=== PATIENT | male | born 1965 | race Two or more races ===

== ENCOUNTER 2020-02-24 08:51 | Outpatient (REF) | payer OTHER, SELFPAY ==
--- NOTE | 2020-02-24 10:41 | XR_ITS ---
EXAMINATION: XR CHEST CLINICAL INFORMATION: Asthma exacerbation COMPARISON: Previous chest x-ray most recent June 2019 TECHNIQUE: 2 views of the chest were obtained. FINDINGS: The cardiac and mediastinal contours are stable. The lungs are clear. There is no pleural effusion or pneumothorax. There are degenerative changes of the spine. XR/XR chest 2V IMPRESSION: No evidence for acute disease in the chest.
[2020-02-24 11:27] LABS: MANUAL DIFF FLAG NO
[2020-02-24 11:52] LABS: Basophils Absolute Auto 0.1 X10*3/uL (0.0-0.2); Basophils Percent Auto 0.8 % (0-2); Eosinophils Absolute Auto 0.2 X10*3/uL (0.0-0.4); Eosinophils Percent Auto 2.1 % (0-4); Hematocrit 49.8 % (42-52); Imm Gran Abs Auto 0.06 X10*3/uL (0.00-0.03); Imm Gran Pct Auto 0.8 % (0.0-0.4); Lymphocytes Absolute Auto 1.4 X10*3/uL (1.2-4.9); Lymphocytes Percent Auto 18.6 % (20-40); Mean Corpuscular HGB Conc 32.1 g/dl (31.0-36.0); Mean Corpuscular Hemoglobin 29.4 pg (27.0-33.0); Mean Corpuscular Volume 91.5 fL (80-98); Mean Platelet Volume 11.2 fL (9.4-12.4); Monocytes Absolute Auto 0.6 X10*3/uL (0.1-1.2); Monocytes Percent Auto 7.1 % (2-11); Neutrophils Absolute Auto 5.5 X10*3/uL (2.0-8.3); Neutrophils Percent Auto 70.6 % (45-73); Platelet Count 258 X10*3/uL (160-400); Red Blood Count 5.44 X10*6/uL (4.60-5.80); Red Cell Distribution Width 12.6 % (11.0-16.0); White Blood Count 7.8 X10*3/uL (4.8-10.8)
[2020-02-24 12:01] LABS: Anion Gap 14 (12-20); Blood Urea Nitrogen 12 mg/dL (9-16); Calcium 9.4 mg/dL (8.4-10.2); Carbon Dioxide 27 mmol/L (22-29); Chloride 104 mmol/L (96-108); Cholesterol 212 mg/dL; Estimated Glomerular Filt Rate > 60; Glucose Fasting 169 mg/dL (60-99); HDL Cholesterol 38 mg/dL; LDL Cholesterol Calculated 145 mg/dl; Potassium 4.8 mmol/l (3.3-5.1); Sodium 140 mmol/L (135-145); Triglycerides 145 mg/dL
[2020-02-24 12:08] LABS: SARS COV2 IgG Negative (Negative)
[2020-02-24 12:56] LABS: Erythrocyte Sedimentation Rate 5 MM/HR (0-15)
[2020-02-27 11:17] LABS: Immunoglobulin G Subclass 1 416 mg/dL (382-929); Immunoglobulin G Subclass 2 344 mg/dL (241-700); Immunoglobulin G Subclass 3 70 mg/dL (22-178); Immunoglobulin G Subclass 4 4.5 mg/dL (4-86); Immunoglobulin G Total 888 mg/dL (600-1640)
[2020-02-28 11:53] LABS: IgA 239 mg/dL (47-310); IgG 929 mg/dL (600-1640); IgM 171 mg/dL (50-300)
== END 2020-02-24 08:52 | disposition home or self-care (01) ==
LOC: HO.LAB 08:51
PROVIDERS: Absent Provider Nurse Practitioner Family; PCP Internal Medicine; Referring Provider Internal Medicine; Visit Provider Hospitalist
DX: J45.901 Unspecified asthma with (acute) exacerbation (principal); G47.33 Obstructive sleep apnea (adult) (pediatric)
CPT/HCPCS: 36415; 71046; 80048; 80061; 82784; 82785; 85025; 85652; 86003; 86769; 87070; 87205; 99212

== ENCOUNTER → 2020-03-23 10:15 | Outpatient (REF) | payer OTHER, SELFPAY | LOC: HO.SL 10:15 | PROVIDERS: Visit Provider Hospitalist | DX: G47.33 Obstructive sleep apnea (adult) (pediatric) (principal) | CPT/HCPCS: 95806 ==

== ENCOUNTER → 2020-03-26 09:40 | Outpatient (BNVA) | payer OTHER, SELFPAY | PROVIDERS: PCP Internal Medicine; Visit Provider Internal Medicine | DX: I45.10 Unspecified right bundle-branch block (principal); R00.2 Palpitations; G47.33 Obstructive sleep apnea (adult) (pediatric); E66.01 Morbid (severe) obesity due to excess calories; E11.8 Type 2 diabetes mellitus with unspecified complications; I10 Essential (primary) hypertension; E78.5 Hyperlipidemia, unspecified | CPT/HCPCS: 93005; 99212 ==

== ENCOUNTER → 2020-04-09 13:47 | Outpatient (BNVA) | payer OTHER, SELFPAY | PROVIDERS: PCP Internal Medicine; Visit Provider Hospitalist | DX: G47.33 Obstructive sleep apnea (adult) (pediatric) (principal); J45.901 Unspecified asthma with (acute) exacerbation; J45.991 Cough variant asthma | CPT/HCPCS: 99212 ==

== ENCOUNTER → 2020-04-21 09:25 | Outpatient (REF) | payer OTHER, SELFPAY ==
--- NOTE | 2020-04-21 09:27 | ECG_ITS ---
Hook-up date: 2020-04-21 10:43:00 Duration: 47:48:00 Test Indications: RBBB, PALPITATIONS Medications: [id number] QRS complexes 459 Ventricular ectopics which represent <1 % of total QRS comp. 13 Supraventricular ectopics which represent <1 % of total QRS comp. * Paced QRS complexs which represent % of total QRS comp. VENTRICULAR ECTOPY 440 Isolated 0 Bigeminal Cycles 0 Couplets 1 Runs 19 Beats in Runs 19 Beats LONGEST at 110 BPM at 05:32:16 2020-04-22 19 Beats FASTEST at 110 BPM at 05:32:16 2020-04-22 SUPRAVENTRICULAR ECTOPY 13 Isolated 0 Couplets 0 Runs 0 Beats in Runs * Beats LONGEST at * BPM at :: -- * Beats FASTEST at * BPM at :: -- HEART RATES 63 MIN at 05:01:58 2020-04-22 86 AVG 107 MAX at 13:43:56 2020-04-21 LONGEST RR 1.5360 secs at 09:24:35 2020-04-22 S-T LEVELS Channel 1 - 128 mm at 10:43:00 2020-04-21 - 128 mm at 10:43:00 2020-04-21 Channel 2 - 128 mm at 10:43:00 2020-04-21 - 128 mm at 10:43:00 2020-04-21 Channel 3 - 128 mm at 03:00:21 -- - 128 mm at 03:00:21 Underlying rhythm in sinus; Average ventricular rate 86/min; range 63-107/min; Occasional ventricular ectopy (<1%); One 19 beat run of monomorphic NSVT at 110/min; No sustained arrhythmias; Patient did not report any symptoms in the diary Referred By: Kandy Gimenez Overread By: KANDY GIMENEZ
--- NOTE | 2020-04-21 09:27 | CA_ITS ---
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 Normal LV systolic function with grade 1 diastolic dysfunction 2. Normal cardiac valvular Doppler 3. Normal RV systolic pressure 4. No pericardial effusion Findings Left Ventricle Normal left ventricular size, thickness, and systolic function. The visually estimated ejection fraction is between 60-65%. Spectral Doppler is indicative of an impaired relaxation filling pattern. E/E prime ratio is <8, consistent with normal filling pressures. Evidence suggests grade I (mild) diastolic dysfunction. Right Ventricle Normal right ventricular cavity size and systolic function. Atria Both atria are normal in size. Interatrial shunt cannot be excluded. Aortic Valve The aortic valve structure and function is likely normal. There is no aortic valve stenosis. There is no aortic valve regurgitation. Mitral Valve Normal mitral valve structure and function. There is no mitral valve regurgitation. There is no mitral valve stenosis. Pulmonic Valve The pulmonic valve is likely normal. There is trace pulmonic valve regurgitation. Tricuspid Valve Normal tricuspid valve structure. There is trace tricuspid valve regurgitation. The right ventricular systolic pressure is normal. The right ventricular systolic pressure is 13 mmHg. Normal right atrial pressure. There is no evidence of pulmonary hypertension. Great Vessels All visible segments of the aorta are normal in size. The pulmonary artery was not well visualized. Venous The inferior vena cava is normal in size and collapses greater than 50% with inspiration. Pericardium/Pleural There is no evidence of pericardial effusion. Prior Study Comparison No significant change compared to prior study dated: 04/10/2018. Measurements 2D Linear Measurements IVSd: 1.20 0.6-0.9/0.6-1.0 cm LVIDd: 4.70 3.9-5.3/4.2-5.9 cm LVIDd Index: 2.13 2.4-3.2/2.2-3.1 cm/m2 LVIDs: 3.29 2.0-3.6 cm LVPWd: 1.21 0.7-1.1 cm Ao Root: 3.40 2.1-3.5 cm LA Diam: 3.50 2.7-3.8/3.0-4.0 cm LAIDs Index: 1.58 1.5-2.3 cm/m2 LV Mass: 265.83 67-162/88-224 g LV Mass Index: 120.28 43-95/49-115 g/m2 LVOT Diam: 2.20 3.0+(-)1.3 cm Mitral Valve MV Pk E: 0.62 MV PK A: 1.00 MV Decel Time: 155.00 E/A: 0.60 E'Lateral: 8.90 E'Medial: 6.87 E/E' Med: 9.00 E/E' Lat: 7.00 PHT: 45.00 MVA PHT: 4.89 Decel Hidalgo: 4.01 Aortic Valve AoV Pk Robinson: 1.33 AoV Mn Robinson: 0.96 AoV VTI: 0.31 AoV Pk Grad: 7.00 Aov Mn Grad: 4.00 KANDACE Cont.VTI: 2.50 LVOT LVOT Pk Robinson: 0.96 LVOT Mn Robinson: 0.67 LVOT VTI: 0.20 LVOT Pk Grad: 4.00 LVOT Mn Grad: 2.00 LVOT Diam: 2.20 LVOT Area: 3.80 Diastolic Function MV Pk E: 0.62 MV Pk A: 1.00 E/A: 0.60 E'Medial: 6.87 E/E' Med: 9.00 E' Laterial: 8.90 E/E' Lat: 7.00 Tricuspid Valve TR Pk Robinson: 1.56 TR Pk Grad: 10.00 RA Press: 3.00 RVSP: 13.00 Great Vessels Aorta Ao Root-2D: 3.40 2.0-3.7 cm Ao Asc: 3.70 2.1-3.4 cm Pulmonary Valve PV Pk Robinson: 1.07 Peak PV Grad: 5.00 Updated in Other Vendor System with Status of Final Dustin Gardner MD electronically signed on 04/22/2020 1:27:01 PM with status of Final
== END ==
LOC: HO.CARD 09:25
PROVIDERS: Visit Provider Internal Medicine
DX: I45.10 Unspecified right bundle-branch block (principal); R00.2 Palpitations
CPT/HCPCS: 93225; 93226; 93306

== ENCOUNTER → 2020-04-29 09:32 | Outpatient (BNVA) | payer OTHER, SELFPAY | PROVIDERS: PCP Internal Medicine; Visit Provider Nurse Practitioner Family | DX: I47.2 Ventricular tachycardia (principal); R00.2 Palpitations; I45.10 Unspecified right bundle-branch block; G47.33 Obstructive sleep apnea (adult) (pediatric); I10 Essential (primary) hypertension; E78.5 Hyperlipidemia, unspecified | CPT/HCPCS: 99212 ==

== ENCOUNTER → 2020-05-11 10:12 | Outpatient (BNVA) | payer OTHER, SELFPAY | PROVIDERS: PCP Internal Medicine; Visit Provider Nurse Practitioner Family | DX: I47.2 Ventricular tachycardia (principal); I10 Essential (primary) hypertension; I45.10 Unspecified right bundle-branch block; R00.2 Palpitations; G47.33 Obstructive sleep apnea (adult) (pediatric); E78.5 Hyperlipidemia, unspecified | CPT/HCPCS: 99212 ==

== ENCOUNTER → 2020-07-16 09:37 | Outpatient (BNVA) | payer OTHER, SELFPAY | PROVIDERS: PCP Internal Medicine; Visit Provider Hospitalist | DX: K44.9 Diaphragmatic hernia without obstruction or gangrene (principal); J45.991 Cough variant asthma; J31.0 Chronic rhinitis | CPT/HCPCS: 99212 ==

== ENCOUNTER → 2020-07-27 09:38 | Outpatient (BNVA) | payer OTHER, SELFPAY | PROVIDERS: PCP Internal Medicine; Referring Provider Internal Medicine; Visit Provider Nurse Practitioner Family | DX: I10 Essential (primary) hypertension (principal); R00.2 Palpitations; I47.2 Ventricular tachycardia; I45.10 Unspecified right bundle-branch block; E78.5 Hyperlipidemia, unspecified; G47.33 Obstructive sleep apnea (adult) (pediatric); Z79.899 Other long term (current) drug therapy | CPT/HCPCS: 99212 ==

== ENCOUNTER 2020-07-27 10:48 | Outpatient (REF) | payer OTHER, SELFPAY ==
[2020-07-27 14:38] LABS: Alanine Aminotransferase 32 U/L (0-40); Aspartate Amino Transferase 20 U/L (5-37); Cholesterol 224 mg/dL; HDL Cholesterol 35 mg/dL; LDL Cholesterol Calculated 155 mg/dl; Triglycerides 174 mg/dL
[2020-07-27 14:39] LABS: Anion Gap 15 (12-20); Blood Urea Nitrogen 16 mg/dL (9-16); Calcium 9.4 mg/dL (8.4-10.2); Carbon Dioxide 25 mmol/L (22-29); Chloride 103 mmol/L (96-108); Estimated Glomerular Filt Rate > 60; Glucose Random 197 mg/dL (60-115); Potassium 4.7 mmol/L (3.3-5.1); Sodium 138 mmol/L (135-145)
== END 2020-07-27 10:49 | disposition home or self-care (01) ==
LOC: HO.10HDL 10:48
PROVIDERS: Visit Provider Nurse Practitioner Family
DX: E78.5 Hyperlipidemia, unspecified (principal); I47.2 Ventricular tachycardia
CPT/HCPCS: 36415; 80048; 80061; 83735; 84450; 84460

== ENCOUNTER 2020-08-21 14:53 | Outpatient (REF) | payer OTHER, SELFPAY ==
--- NOTE | ~2020-08-21 | XR_ITS ---
EXAMINATION: LUMBAR SPINE AND SACROILIAC JOINT X-RAYS CLINICAL INFORMATION: Radiculopathy COMPARISON: Previous CT of the abdomen and pelvis November 2013 TECHNIQUE: 3 views of the lumbar spine and 3 views of the sacroiliac joints FINDINGS: Lumbar spine: There is mild 5 mm retrolisthesis of L5 with respect to L4. Bone alignment is otherwise normal. No fracture or dislocation is seen. There is severe degenerative disc disease at L4-L5 and facet arthritis. Paraspinal soft tissues are unremarkable. Sacroiliac joints: The sacroiliac joints are normal. No fracture, dislocation or bone lesion is seen. XR/XR sacroiliac joint min 3V IMPRESSION: Lumbar spine: Severe degenerative disc disease and facet arthritis at L4-L5. Mild retrolisthesis of L5 with respect to L4. These changes are similar to CT scan of the abdomen and pelvis November 2013. Sacroiliac joints: Unremarkable exam.
--- NOTE | ~2020-08-21 | XR_ITS ---
EXAMINATION: LUMBAR SPINE AND SACROILIAC JOINT X-RAYS CLINICAL INFORMATION: Radiculopathy COMPARISON: Previous CT of the abdomen and pelvis November 2013 TECHNIQUE: 3 views of the lumbar spine and 3 views of the sacroiliac joints FINDINGS: Lumbar spine: There is mild 5 mm retrolisthesis of L5 with respect to L4. Bone alignment is otherwise normal. No fracture or dislocation is seen. There is severe degenerative disc disease at L4-L5 and facet arthritis. Paraspinal soft tissues are unremarkable. Sacroiliac joints: The sacroiliac joints are normal. No fracture, dislocation or bone lesion is seen. XR/XR lumbar spine 2-3V IMPRESSION: Lumbar spine: Severe degenerative disc disease and facet arthritis at L4-L5. Mild retrolisthesis of L5 with respect to L4. These changes are similar to CT scan of the abdomen and pelvis November 2013. Sacroiliac joints: Unremarkable exam.
== END 2020-08-21 14:54 | disposition home or self-care (01) ==
LOC: HO.XRAY 14:53
PROVIDERS: PCP Internal Medicine; Visit Provider Internal Medicine
DX: M54.5 Low back pain (principal); M54.10 Radiculopathy, site unspecified; M53.3 Sacrococcygeal disorders, not elsewhere classified
CPT/HCPCS: 72100; 72202

== ENCOUNTER 2020-09-07 10:20 | Outpatient (REF) | payer OTHER, SELFPAY ==
--- NOTE | ~2020-09-07 | US_ITS ---
EXAMINATION: RIGHT and LEFT LOWER EXTREMITY VENOUS ULTRASOUND (Reflux Exam) CLINICAL INDICATION: Leg pain. Question history of right leg pain procedure area COMPARISON: None. TECHNIQUE: Color flow triplex imaging and compression Doppler was performed to evaluate both the deep and the superficial systems bilaterally. To evaluate the superficial system, the examination was performed in the upright position. Color-flow Doppler ultrasound and compression ultrasound were utilized. In addition, maneuvers were utilized to demonstrate reflux. FINDINGS: 1. DEEP VENOUS ULTRASOUND OF THE RIGHT LOWER EXTREMITY: Respiratory variation, normal compression and augmented flow are noted in the right common femoral vein as well as the right popliteal vein and there is no evidence of deep venous thrombosis at these locations. There is no evidence of reflux in the deep system in either the common femoral vein or the popliteal vein. There is no evidence of a Zacarias's cyst. 2. SUPERFICIAL ULTRASOUND WITH DOPPLER OF RIGHT LOWER EXTREMITY: The right great saphenous vein at the saphenofemoral junction measures 6 mm, at the mid thigh are not seen, jweaf-mrl-bytd 3 mm, rfqjz-xbu-zwtq 3 mm, at mid calf 2 mm and at the ankle measures 2 mm. There is 2 seconds reflux in the right greater saphenous vein in the mid calf. There is a medial accessory greater saphenous vein that measures 4 mm and does not demonstrate reflux. The right small saphenous vein measures 2 mm and shows no reflux. There is varicose vein above the knee that measures 4 mm and demonstrates 2.8 seconds reflux and in the mid calf that measures 3 mm and demonstrates 2.7 second reflux. 3. DEEP VENOUS ULTRASOUND OF THE LEFT LOWER EXTREMITY: Respiratory variation, normal compression and augmented flow are noted in the left common femoral vein as well as the left popliteal vein and there is no evidence of deep venous thrombosis at these locations. There is no evidence of reflux in the deep system in either the common femoral vein or the popliteal vein. . There is no evidence of a Zacarias's cyst. 4. SUPERFICIAL ULTRASOUND WITH DOPPLER OF LEFT LOWER EXTREMITY: Left great saphenous vein at the saphenofemoral junction measures 10 mm, at the mid thigh 1 mm, dhopb-wnp-ttth 3 mm, rebiw-bcw-qrkn 3 mm, at mid calf 2 mm and at the ankle measures 2 mm. There is no reflux demonstrated in the left great saphenous vein. There is a medial accessory greater saphenous vein that measures 5 mm and does not demonstrate reflux. The left small saphenous vein measures 3-4 mm and shows no reflux. There are small perforators that measure 2 mm in the proximal thigh, distal calf and midcalf that do not demonstrate reflux. There is a varicosity in the proximal thigh that measures 3 mm and does not demonstrate reflux. US/US venous duplex LE BI IMPRESSION: 1. No evidence of reflux or thrombus in the common femoral veins or popliteal veins bilaterally. 2. The right greater saphenous vein is not visualized in the mid thigh. There is reflux in the right greater saphenous vein in the mid calf measuring 2 seconds. There are varicosities above the knee and in the mid calf on the right than demonstrate reflux. No left greater saphenous vein reflux.
== END 2020-09-07 10:21 | disposition home or self-care (01) ==
LOC: HO.US 10:20
PROVIDERS: PCP Internal Medicine; Visit Provider Nurse Practitioner Family
DX: I83.90 Asymptomatic varicose veins of unspecified lower extremity (principal); M79.605 Pain in left leg; M79.604 Pain in right leg
CPT/HCPCS: 93970

== ENCOUNTER 2020-09-18 17:35 | Emergency (ER) | payer OTHER, SELFPAY ==
--- NOTE | ~2020-09-18 | XR_ITS ---
EXAMINATION: XR CHEST CLINICAL INFORMATION: Shortness of breath COMPARISON: 02/24/2020 TECHNIQUE: 2 views of the chest were obtained. FINDINGS: No infiltrate. Lung mo are grossly clear. Tortuous versus ectatic descending aorta is once again seen. Hilar structures are not pathologically enlarged. Degenerative change in the thoracic spine. No acute compression injury. Lung mo are clear. No effusion. XR/XR chest 2V IMPRESSION: No acute process
[2020-09-18 18:27] VITALS: BP 164/83; PULSE 80; RESP 18; TEMP 36.2; O2SAT 97; BMI 36.5
[2020-09-18 20:30] LABS: MANUAL DIFF FLAG NO
[2020-09-18 20:32] LABS: Basophils Percent Auto 0.4 % (0-2); Eosinophils Percent Auto 0.3 % (0-4); Hematocrit 44.5 % (42-52); Imm Gran Abs Auto 0.04 X10*3/uL (0.00-0.03); Imm Gran Pct Auto 0.4 % (0.0-0.4); Lymphocytes Absolute Auto 0.7 X10*3/uL (1.2-4.9); Lymphocytes Percent Auto 7.7 % (20-40); Mean Corpuscular HGB Conc 33.7 g/dl (31.0-36.0); Mean Platelet Volume 11.3 fL (9.4-12.4); Monocytes Absolute Auto 0.2 X10*3/uL (0.1-1.2); Monocytes Percent Auto 2.2 % (2-11); Neutrophils Absolute Auto 8.3 X10*3/uL (2.0-8.3); Platelet Count 233 X10*3/uL (160-400); Red Cell Distribution Width 12.1 % (11.0-16.0); White Blood Count 9.3 X10*3/uL (4.8-10.8)
--- NOTE | 2020-09-18 20:42 | ED.ASTHMA ---
HPI - Asthma General Chief Complaint: Asthma Stated Complaint: diff breathing Time Seen by Provider: 09/18/20 20:42 Source: patient Mode of arrival: ambulatory Limitations: no limitations History of Present Illness HPI Narrative: Patient is a 55-year-old male with a past medical history of HTN, asthma, hyperlipidemia, an SVT, varicose veins, obesity, JOSÉ, right bundle-branch block with heart palpitations and type 2 diabetes who presents with 2 days of chest pain and 2 months of shortness of breath. He states he took his Flovent inhaler, his DuoNeb nebulizer x2, to 10 mg prednisone tablets and 1 Zithromax all prior to arrival with no help. He also states he is waking up with the ribcage pain. He denies any fevers, sick contacts, nausea, vomiting or diarrhea. Related Data Home Medications Medication Instructions Recorded Confirmed aspirin 81 mg tablet,delayed 81 mg PO DAILY 02/18/20 08/17/20 release atorvastatin 80 mg tablet 80 mg PO DAILY 02/18/20 08/17/20 clotrimazole-betamethasone 1 1 appl TOPICAL BID 02/18/20 08/17/20 %-0.05 % topical cream dexlansoprazole 60 mg 60 mg PO DAILY 02/18/20 08/17/20 capsule,biphase delayed release fexofenadine 180 mg tablet 180 mg PO DAILY 02/18/20 08/17/20 fluticasone propionate 250 1 inh INHALATION BID 02/18/20 08/17/20 mcg/actuation blister powder for inhalation fluticasone propionate 50 2 spray INTRANASAL DAILY 02/18/20 08/17/20 mcg/actuation nasal spray,suspension ipratropium 0.5 mg-albuterol 3 mg ml INHALATION 02/18/20 08/17/20 (2.5 mg base)/3 mL nebulization soln montelukast 10 mg tablet 10 mg PO QPM 02/18/20 08/17/20 nystatin 100,000 unit/gram topical 1 appl TOPICAL BID 02/18/20 08/17/20 powder umeclidinium 62.5 mcg-vilanterol 1 inh INHALATION .QD ea 02/18/20 08/17/20 25 mcg/actuation powdr for inhalation melatonin 5 mg capsule mg PO 02/24/20 08/17/20 olmesartan 40 mg tablet 40 mg PO DAILY 02/24/20 08/17/20 cholecalciferol (vitamin D3) 25 75 mcg PO DAILY 04/29/20 08/17/20 mcg (1,000 unit) tablet hydrochlorothiazide 12.5 mg capsule 25 mg PO DAILY cap 04/29/20 08/17/20 Previous Rx's Medication Instructions Recorded dextromethorphan-guaifenesin 30 1 tab PO Q12H 10 Days #20 tab 02/18/20 mg-600 mg tablet extended [id number] hr prednisone 10 mg tablet 10 mg PO DAILY 9 Days #18 tab 02/18/20 naproxen 500 mg tablet 500 mg PO BID PRN 10 Days #20 tab 02/19/20 budesonide 0.5 mg/2 mL suspension 0.5 mg INHALATION BID 30 Days #120 02/24/20 for nebulization ml mupirocin 2 % topical ointment 1 appl TOPICAL TID PRN 10 Days #66 02/28/20 g nebulizer accessories #1 ea 03/04/20 alcohol swabs 1 pad TOPICAL TID #300 pad 03/15/20 lancets 28 gauge 28 gauge TOPICAL TID #300 ea 03/16/20 glipizide 5 mg tablet, extended 5 mg PO DAILY #90 tab 04/21/20 release 24 hr amlodipine 10 mg tablet 10 mg PO DAILY #90 tab 05/11/20 azelastine 205.5 mcg (0.15 %) 2 spray INTRANASAL BID 30 Days #30 07/16/20 nasal spray ml glycopyrrolate 9 mcg-formoterol 2 puff INHALATION Q12H 30 Days 07/16/20 4.8 mcg HFA aerosol inhaler #10.7 g metoprolol succinate 50 mg 75 mg PO DAILY 90 Days #135 tab 07/27/20 tablet,extended release 24 hr ezetimibe 10 mg tablet 10 mg PO DAILY #30 tab 07/29/20 albuterol sulfate 90 mcg/actuation 2 puff PO QID PRN 90 Days #3 units 08/12/20 aerosol inhaler gabapentin 400 mg capsule See Rx Instructions PO .COMPLEX 30 08/12/20 Days #120 cap lorazepam 0.5 mg tablet See Rx Instructions .ROUTE 08/12/20 .COMPLEX PRN 30 Days #60 tab blood sugar diagnostic 1 strip MISCELLANEOUS TID #300 08/19/20 strip zolpidem 10 mg tablet 10 mg PO BEDTIME PRN 30 Days #30 08/28/20 tab linagliptin 5 mg tablet 5 mg PO DAILY #30 tab 09/18/20 prednisone 50 mg PO DAILY #4 tab 09/18/20 roflumilast 250 mcg tablet 250 mcg PO DAILY #30 tab 09/18/20 sildenafil 50 mg tablet 50 mg PO DAILY PRN #10 cap 09/18/20 Allergies Allergy/AdvReac Type Severity Reaction Status Date / Time iodine [Iodine] Allergy Severe THROAT Verified 07/27/20 09:44 SWELLING lisinopril Allergy Severe Rash Verified 07/27/20 09:44 metformin Allergy Severe diarrhea Verified 07/27/20 09:44 meperidine [From Demerol] Allergy Mild RASH Verified 07/27/20 09:44 oxycodone [From Percocet] AdvReac Mild MOUTH Verified 07/27/20 09:44 DRYNESS,RASH Mercury Detox Allergy Severe Close Uncoded 07/27/20 09:44 Throat Shellfish Allergy Severe THROAT Uncoded 07/27/20 09:44 SWELLING Review of Systems Review of Systems: Yes all other systems are reviewed and are negative [facility] Past Medical History Medical History Asthma Bronchitis Bronchitis Chronic rhinitis Cough variant asthma Erectile dysfunction Essential hypertension Hiatal hernia High cholesterol Hypertension Lumbar degenerative disc disease Morbid obesity Obesity (BMI 30-39.9) JOSÉ (obstructive sleep apnea) Other and unspecified hyperlipidemia Pain of left sacroiliac joint Radicular pain of left lower extremity Type 2 diabetes mellitus with unspecified complications Surgical History History of carpal tunnel surgery Family History Family History Father No problems noted. Mother Chronic kidney disease (CKD) Social History Social History Alcohol intake: never Patient Tobacco Use Status: Never used Tobacco Advance Directives: No Advance Directives Information Provided: No Physical Exam Vital Signs: Vital Signs: Last Vital Signs Temp 97.8 F 09/18/20 21:55 Pulse 70 07/02/21 21:55 Resp 18 09/18/20 21:55 BP 157/86 H 09/18/20 21:55 Pulse Ox 98 09/18/20 21:55 Body Mass Index 36.5 Const: General: cooperative, healthy appearing, comfortable, no acute distress and well developed Orientation/consciousness: patient oriented x3 Limitations: no limitations HENMT: Head: Yes normal to inspection Eyes: General: appearance normal, both eyes and all related structures Neck: Neck: Yes normal visual inspection and Yes full ROM Resp: Effort & Inspection: normal respiratory effort and able to speak in complete sentences Auscultation: clear to auscultation bilaterally Cardio: Rate: regular rate Rhythm: regular rhythm Heart sounds: normal S1 and S2 Skin: General skin exam: no rashes or lesions noted Neuro: General: patient oriented x3 Extrem: General: Yes normal to inspection MDM - Asthma Lab Data Attestation: I reviewed the patient's lab results. Result diagrams: 09/18/20 20:25 09/18/20 20:25 Labs: Lab Results 09/18/20 09/18/20 09/18/20 Range/Units 20:25 20:25 20:25 WBC 9.3 (4.8-10.8) X10*3/uL RBC 5.00 (4.60-5.80) X10*6/uL Hgb 15.0 (14.0-18.0) g/dl Hct 44.5 (42-52) % MCV 89.0 (80-98) fL MCH 30.0 (27.0-33.0) pg MCHC 33.7 (31.0-36.0) g/dl RDW 12.1 (11.0-16.0) % Plt Count 233 (160-400) X10*3/uL MPV 11.3 (9.4-12.4) fL Immature Gran % (Auto) 0.4 (0.0-0.4) % Neut % (Auto) 89.0 H (45-73) % Lymph % (Auto) 7.7 L (20-40) % [place] % (Auto) 2.2 (2-11) % Eos % (Auto) 0.3 (0-4) % Baso % (Auto) 0.4 (0-2) % Lymph # (Auto) 0.7 L (1.2-4.9) X10*3/uL [place] # (Auto) 0.2 (0.1-1.2) X10*3/uL Eos # (Auto) 0.0 (0.0-0.4) X10*3/uL Baso # (Auto) 0.0 (0.0-0.2) X10*3/uL Abs Immat Gran (auto) 0.04 H (0.00-0.03) X10*3/uL Absolute Neuts (auto) 8.3 (2.0-8.3) X10*3/uL Absolute Nucleated RBC 0.000 (0.0-0.012) X10*3/uL Nucleated RBC % (auto) 0.0 (0.0-0.2) /100WBC Hold Purple Top SEE NOTE Sodium 135 (135-145) mmol/L Potassium 5.0 (3.3-5.1) mmol/L Chloride 105 (96-108) mmol/L Carbon Dioxide 20 L (22-29) mmol/L Anion Gap 15 (12-20) BUN 13 (9-16) mg/dL Creatinine 1.15 (0.5-1.4) mg/dL Estim Creat Clear Calc 85.8 Estimated GFR > 60 Random Glucose 309 H D (60-115) mg/dL Calcium 9.4 (8.4-10.2) mg/dL Troponin I High Sens (<3.5-35.0) ng/L COVID-19 (ANGEL) (Negative) COVID-19 Clin Com 09/18/20 09/18/20 Range/Units 20:25 20:25 WBC (4.8-10.8) X10*3/uL RBC (4.60-5.80) X10*6/uL Hgb (14.0-18.0) g/dl Hct (42-52) % MCV (80-98) fL MCH (27.0-33.0) pg MCHC (31.0-36.0) g/dl RDW (11.0-16.0) % Plt Count (160-400) X10*3/uL MPV (9.4-12.4) fL Immature Gran % (Auto) (0.0-0.4) % Neut % (Auto) (45-73) % Lymph % (Auto) (20-40) % [place] % (Auto) (2-11) % Eos % (Auto) (0-4) % Baso % (Auto) (0-2) % Lymph # (Auto) (1.2-4.9) X10*3/uL [place] # (Auto) (0.1-1.2) X10*3/uL Eos # (Auto) (0.0-0.4) X10*3/uL Baso # (Auto) (0.0-0.2) X10*3/uL Abs Immat Gran (auto) (0.00-0.03) X10*3/uL Absolute Neuts (auto) (2.0-8.3) X10*3/uL Absolute Nucleated RBC (0.0-0.012) X10*3/uL Nucleated RBC % (auto) (0.0-0.2) /100WBC Hold Purple Top Sodium (135-145) mmol/L Potassium (3.3-5.1) mmol/L Chloride (96-108) mmol/L Carbon Dioxide (22-29) mmol/L Anion Gap (12-20) BUN (9-16) mg/dL Creatinine (0.5-1.4) mg/dL Estim Creat Clear Calc Estimated GFR Random Glucose (60-115) mg/dL Calcium (8.4-10.2) mg/dL Troponin I High Sens 5.6 (<3.5-35.0) ng/L COVID-19 (ANGEL) Negative (Negative) COVID-19 Clin Com See Note Imaging Data Chest x-ray: Attestation: I personally reviewed and interpreted this imaging study as follows: Radiologist's impression: Keaton Cullen 55 M 1965 [facility] [place] [id number] ReportSigned Patient: Balaji CullenR#: [id number]: 1965Acct:[id number]/Sex: 55 / MADM Date: 09/18/20Loc: [address] Dr: Ordering Physician: Theodora Rich PA-C Date of Service: 09/18/20 Procedure(s): XR chest 2V Accession Number(s): [id number] cc: Theodora Rich PA-C~ EXAMINATION: XR CHEST CLINICAL INFORMATION: Shortness of breath COMPARISON: 02/24/2020 TECHNIQUE: 2 views of the chest were obtained. FINDINGS: No infiltrate. Lung mo are grossly clear. Tortuous versus ectatic descending aorta is once again seen. Hilar structures are not pathologically enlarged. Degenerative change in the thoracic spine. No acute compression injury. Lung mo are clear. No effusion. XR/XR chest 2V IMPRESSION: No acute process Dictated By:SCOTT CORONA MDSigned By:<Electronically signed by SCOTT CORONA MD in OV>09/18/202101 DD/ 41TD/TT: Director Of Transportation: VENKAT ECG Data Attestation: I personally reviewed and interpreted this ECG as follows: ECG interpretation date: 09/18/20 ECG interpretation time: 22:22 Interpretation: RBBB seen on EKG from 03/26/2020. Otherwise normal sinus rhythm at 72 beats per minute, no ST elevation Discharge Plan Discharge Clinical Impression: Asthma exacerbation Qualifiers: Asthma severity: mild Asthma persistence: persistent Qualified Code(s): J45.31 - Mild persistent asthma with (acute) exacerbation Patient Disposition: Home, Self-Care Instructions: Asthma (ED) Additional Instructions: all of your lab work came back within normal limits, your EKG was normal sinus rhythm and your chest x-ray did not show any acute process. I believe it is your asthma that is causing your problem. I will give you a short course of steroids to help you breathe easier. If you develop chest pain, shortness of breath, please return to the emergency department or call 911. Prescriptions: New prednisone 50 mg tablet 50 mg PO DAILY Qty: 4 RF: 0 No Action mupirocin 2 % ointment 1 appl topical TID PRN (Reason: infection) 10 Days Qty: 66 RF: 2 (DME) nebulizer accessories Misc See Rx Instructions .ROUTE .MEDSUPPLY Qty: 1 RF: 11 alcohol swabs [Alcohol Prep Pads] Pads, Medicated 1 pad topical TID Qty: 300 RF: 1 lancets [FreeStyle Lancets] 28 gauge misc 28 gauge topical TID Qty: 300 RF: 0 glipizide 5 mg tablet extended release 24hr 5 mg PO DAILY Qty: 90 RF: 1 ezetimibe [Zetia] 10 mg tablet 10 mg PO DAILY Qty: 30 RF: 5 blood sugar diagnostic [FreeStyle Lite Strips] Strip 1 strip miscellaneous TID Qty: 300 RF: 0 zolpidem 10 mg tablet 10 mg PO BEDTIME PRN (Reason: insomnia) 30 Days Qty: 30 RF: 0 sildenafil 50 mg tablet 50 mg PO DAILY PRN (Reason: sexual activity) Qty: 10 RF: 1 roflumilast [Daliresp] 250 mcg tablet 250 mcg PO DAILY Qty: 30 RF: 0 Tradjenta 5 mg tablet 5 mg PO DAILY Qty: 30 RF: 0 gabapentin 400 mg capsule See Rx Instructions PO .COMPLEX 30 Days Qty: 120 RF: 3 albuterol sulfate [Ventolin HFA] 90 mcg/actuation HFA aerosol inhaler 2 puff PO QID PRN (Reason: shortness of breath or wheezing) 90 Days Qty: 3 RF: 3 lorazepam 0.5 mg tablet See Rx Instructions .ROUTE .COMPLEX PRN (Reason: anxiety) 30 Days Qty: 60 RF: 0 aspirin 81 mg tablet,delayed release (DR/EC) 81 mg PO DAILY RF: 0 clotrimazole-betamethasone 1-0.05 % cream 1 appl topical BID RF: 0 fluticasone propionate [Flonase Allergy Relief] 50 mcg/actuation spray,suspension 2 spray intranasal DAILY RF: 0 fexofenadine 180 mg tablet 180 mg PO DAILY RF: 0 Dexilant 60 mg capsule,biphase delayed releas 60 mg PO DAILY RF: 0 nystatin 100,000 unit/gram powder 1 appl topical BID RF: 0 atorvastatin [Lipitor] 80 mg tablet 80 mg PO DAILY RF: 0 prednisone 10 mg tablet 10 mg PO DAILY 9 Days Qty: 18 RF: 0 montelukast [Singulair] 10 mg tablet 10 mg PO QPM RF: 0 ipratropium-albuterol 0.5 mg-3 mg(2.5 mg base)/3 mL solution for nebulization inhalation RF: 0 Mucinex DM 30-600 mg tablet extended release 12 hr 1 tab PO Q12H 10 Days Qty: 20 RF: 0 Flovent Diskus 250 mcg/actuation blister with device 1 inh inhalation BID RF: 0 Anoro Ellipta 62.5-25 mcg/actuation blister with device 1 inh inhalation .QD RF: 0 naproxen 500 mg tablet 500 mg PO BID PRN (Reason: pain) 10 Days Qty: 20 RF: 0 olmesartan 40 mg tablet 40 mg PO DAILY RF: 0 hydrochlorothiazide 12.5 mg capsule 25 mg PO DAILY RF: 0 melatonin 5 mg capsule PO RF: 0 budesonide 0.5 mg/2 mL suspension for nebulization 0.5 mg inhalation BID 30 Days Qty: 120 RF: 6 amlodipine 10 mg tablet 10 mg PO DAILY Qty: 90 RF: 1 Bevespi Aerosphere 9-4.8 mcg HFA aerosol inhaler 2 puff inhalation Q12H 30 Days Qty: 10.7 RF: 11 azelastine 205.5 mcg (0.15 %) spray,non-aerosol 2 spray intranasal BID 30 Days Qty: 30 RF: 11 cholecalciferol (vitamin D3) 25 mcg (1,000 unit) tablet 75 mcg PO DAILY RF: 0 metoprolol succinate 50 mg tablet extended release 24 hr 75 mg PO DAILY 90 Days Qty: 135 RF: 1
[2020-09-18 20:46] LABS: COVID-19 Test Negative (Negative); IDNOW Serial# 9DD0AD1C
[2020-09-18 21:02] LABS: Anion Gap 15 (12-20); Blood Urea Nitrogen 13 mg/dL (9-16); Calcium 9.4 mg/dL (8.4-10.2); Carbon Dioxide 20 mmol/L (22-29); Chloride 105 mmol/L (96-108); Creatinine Clr Calc Pharmacy 85.8; Estimated Glomerular Filt Rate > 60; Glucose Random 309 mg/dL (60-115); Sodium 135 mmol/L (135-145)
[2020-09-18 21:10] LABS: Troponin-I High Sensitivity 5.6 ng/L (<3.5-35.0)
[2020-09-18 21:55] VITALS: BP 157/86; PULSE 70; RESP 18; TEMP 36.6; O2SAT 98
--- NOTE | 2020-09-18 22:00 | ECG_ITS ---
Test Reason : SOB Blood Pressure : / mmHG Vent. Rate : 072 BPM Atrial Rate : 072 BPM P-R Int : 206 ms QRS Dur : 142 ms QT Int : 412 ms P-R-T Axes : 016 001 002 degrees QTc Int : 451 ms Normal sinus rhythm with sinus arrhythmia Right bundle branch block Abnormal ECG When compared with ECG of 16-SEP-2003 23:00, Right bundle branch block is now Present Referred By: Theodora Rich Electronically Signed By:HUGO CLARKE MD
== END 2020-09-18 22:39 | disposition home or self-care (01) ==
PROVIDERS: Physician Assistant; Emergency Provider Internal Medicine; PCP Internal Medicine
DX: J45.31 Mild persistent asthma with (acute) exacerbation (principal); I10 Essential (primary) hypertension; I45.10 Unspecified right bundle-branch block; E11.9 Type 2 diabetes mellitus without complications; Z79.84 Long term (current) use of oral hypoglycemic drugs; Z79.899 Other long term (current) drug therapy; Z20.822 Contact with and (suspected) exposure to COVID-19
CPT/HCPCS: 36415; 71046; 80048; 84484; 85025; 87635; 93005; 99283; 99284

== ENCOUNTER 2020-10-05 09:02 | Outpatient (REF) | payer OTHER, SELFPAY ==
[2020-10-05 12:32] LABS: Erythrocyte Sedimentation Rate 4 MM/HR (0-15)
[2020-10-10 14:30] LABS: Asperg fumigatus Precip Abs NEGATIVE (NEGATIVE); Micropoly faeni Abs NEGATIVE (NEGATIVE); Pigeon serum Abs NEGATIVE (NEGATIVE); Saccharo pora viridis Abs NEGATIVE (NEGATIVE); Thermo candidus Abs NEGATIVE (NEGATIVE); Thermoa vulgaris #1 NEGATIVE (NEGATIVE)
== END 2020-10-05 09:03 | disposition home or self-care (01) ==
LOC: HO.10HDL 09:02
PROVIDERS: PCP Internal Medicine; Visit Provider Hospitalist
DX: J40 Bronchitis, not specified as acute or chronic (principal); R91.8 Other nonspecific abnormal finding of lung field; G47.33 Obstructive sleep apnea (adult) (pediatric); K44.9 Diaphragmatic hernia without obstruction or gangrene; Z01.82 Encounter for allergy testing; Z79.899 Other long term (current) drug therapy; Z79.52 Long term (current) use of systemic steroids
CPT/HCPCS: 36415; 85652; 86003; 86331; 86606; 86609; 99212

== ENCOUNTER 2020-10-19 09:00 | Outpatient (RCR) | payer OTHER, SELFPAY ==
--- NOTE | 2020-09-29 13:52 | MHC.PT.EP ---
[facility] [place] [facility] [place] [facility] [place] [facility] [address] Ana Jackson [address] [phone] F: [phone] F: [phone] F: [phone] F: [phone] Physical Therapy Plan of Care Date of Evaluation: Date of Surgery: Diagnosis: LUMBAR DISC DEGENERATION Assessment: 55 YO MALE REF TO PT FOR LBP/ LUMBAR DISC DEGEN W LEFT LE RADIC SXS- OBJECTIVE FINDINGS: DECR Rt > Lt HIP FLEXIBILITY, DECR TRUNK AROM(FLEX AND HARLEY SB), (+) SOFT TISSUE TIGHTNESS AND IRRIT IN LS, AND PAIN IN LS AND LEFT LE RADIC SXS. FUNCTIONAL LIMITATIONS INCLUDE DECR STANDING ZINA, LIMITED WALKING, DIFFIC W FUNCT SQUAT, AND DECR LIFTING/ CARYING -> PHYS DEMANDING TASKS. Pt IS A GOOD PT CANDIDATE TO ADDRESS ABOVE AND IMPROVE SELF-SX MGMT TECHN. Frequency and Duration: The patient will be seen 2x WK x 5 WKS Short Term Goals: DECR LBP TO 2-310 AND Lt LE RADIC SXS DECR BY 75% IN 2 WKS Pt DEMON IMPROVED FLEXIB IN HARLEY HIPS AND TRUNK IN 2 WKS Pt DEMON IMPROVED POSTURE/ BODY MECH AWARENESS AND WFL SQUAT MECH IN 3 WKS Custodial Goals: Pt INDEP W HEP AND SELF-SX MGMT TECHN IN 5 WKS Pt DEMON PROPER BODY MECH W 3:3 SIMUL TASKS IN 5 WKS Treatment Plan: Modalities to reduce pain, spasms and effusion. Manual therapy to restore motion and function. Therapeutic exercise to improve strength and flexibility. Neuromuscular re-education for posture and balance. Therapeutic activities to return to functional activities of daily living. Electronically signed by: Maisha Arambula,PT Please sign and return to therapist. Thank you for your referral.
--- NOTE | 2020-10-23 06:56 | MHC.PT.OD ---
[facility] [place] [facility] [place] [facility] [place] [facility] [address] Ana Jackson [address] [phone] F: [phone] F: [phone] F: [phone] F: [phone] Physical Therapy Daily Note Diagnosis: LUMBAR DISC DEGENERATION Date of Surgery: Date of Evaluation: 09/29/20 Date of Treatment: 10/19/20 Treatments to Date: 7 Cancellations to Date: 0 No Shows to Date: 0 Authorized Visits: 1 Insurance End Date: Precautions/ Contraindications:CARDIAC - HTN Subjective: Pt states he has been feeling about the same. Good days and bad days. Feels like symptoms still limit him a lot. Pain Score and Location: 6 HARLEY LB AND LEFT LE Objective Flowsheet: Tests & Measures Lumbar spine: There is mild 5 mm retrolisthesis of L5 with respect to L4. Bone alignment is otherwise normal. No fracture or dislocation is seen. There is severe degenerative disc disease at L4-L5 and facet arthritis. Paraspinal soft tissues are unremarkable. Sacroiliac joints: The sacroiliac joints are normal. No fracture, dislocation or bone lesion is seen. Exercises TM walking 4 minutes before significant pain, < 2.0 mph Hip abd BTB 30x Hip add ball squeeze in hooklying 30x Piriformis stretching 4x30 seconds 2 ways 90/90 pos traction Seated PB flexion stretching 8x15 seconds HS stretching in supine 4x30 each STM to lumbar spine and STM, S/CS to piriformis Modalities Assessment: Pt has been unable to progress in skilled PT functionally. He has still been plagued with significant pain with walking and other methods of functional mobility. His tolerance is low and increased s/s occurs shortly after initiation of walking. I discussed the plan of holding on PT until contacting referring MD to discern optimal next step for management. PT Plan: STM, KT, HIP FLEXIB, PROGR THER EXER, MH/ICE Short Term Goals: DECR LBP TO 2-310 AND Lt LE RADIC SXS DECR BY 75% IN 2 WKS Pt DEMON IMPROVED FLEXIB IN HARLEY HIPS AND TRUNK IN 2 WKS Pt DEMON IMPROVED POSTURE/ BODY MECH AWARENESS AND WFL SQUAT MECH IN 3 WKS Hog Driver Goals: Pt INDEP W HEP AND SELF-SX MGMT TECHN IN 5 WKS Pt DEMON PROPER BODY MECH W 3:3 SIMUL TASKS IN 5 WKS Electronically signed by: Napoleon Pinto PT
--- NOTE | 2021-02-03 13:48 | MHC.PT.DC ---
[facility] [place] Office [place] Office [place] Office [address] Ana Jackson [address] [phone] F: [phone] F: [phone] F: [phone] F: [phone] Physical Therapy Discharge Report Diagnosis: LUMBAR DISC DEGENERATION Date of Surgery: Date of Evaluation: 09/29/20 Date of Discharge: 10/19/20 Treatments to Date: 7 Cancellations to Date: 0 No Shows to Date: 0 Discharge Status: Discharge Summary: Pt has been unable to progress in skilled PT functionally. He has still been plagued with significant pain with walking and other methods of functional mobility. His tolerance is low and increased s/s occurs shortly after initiation of walking. I discussed the plan of holding on PT until contacting referring MD to discern optimal next step for management. Electronically signed by: Napoleon Pinto, PT Please sign and return to therapist. Thank you for your referral.
== END 2021-02-23 13:09 | disposition home or self-care (01) ==
LOC: HO.PTCHIC 09:00
PROVIDERS: PCP Internal Medicine; Visit Provider Internal Medicine
DX: M51.36 Other intervertebral disc degeneration, lumbar region (principal)
CPT/HCPCS: 97110; 97140; 97161

== ENCOUNTER → 2020-10-27 10:20 | Outpatient (BNVA) | payer OTHER, SELFPAY | PROVIDERS: PCP Internal Medicine; Visit Provider Internal Medicine | DX: I45.10 Unspecified right bundle-branch block (principal); I10 Essential (primary) hypertension; E66.01 Morbid (severe) obesity due to excess calories; E11.8 Type 2 diabetes mellitus with unspecified complications; R00.2 Palpitations; E78.5 Hyperlipidemia, unspecified | CPT/HCPCS: 99212 ==

== ENCOUNTER 2020-11-06 13:39 | Outpatient (REF) | payer OTHER, SELFPAY ==
--- NOTE | ~2020-11-06 | XR_ITS ---
EXAMINATION: XR HIP, LEFT CLINICAL INFORMATION: Left hip pain. COMPARISON: Sacroiliac joint radiographs dated 08/21/2020 TECHNIQUE: Two views of the left hip. FINDINGS: No acute fracture or dislocation. No significant joint space narrowing. Tiny lateral acetabular marginal osteophytes. No osseous erosion. No abnormal soft tissue calcification. XR/XR hip LT min 2V IMPRESSION: Mild left hip osteoarthritis.
== END 2020-11-06 13:40 | disposition home or self-care (01) ==
LOC: HO.XRAY 13:39
PROVIDERS: PCP Internal Medicine; Visit Provider Internal Medicine
DX: M25.552 Pain in left hip (principal)
CPT/HCPCS: 73502

== ENCOUNTER 2020-11-22 00:25 | Emergency (ER) | payer OTHER, SELFPAY ==
--- NOTE | ~2020-11-22 | XR_ITS ---
EXAMINATION: XR CHEST CLINICAL INFORMATION: Hemoptysis and shortness of breath COMPARISON: 09/18/2020 TECHNIQUE: Frontal view of the chest was obtained. FINDINGS: Normal symmetric lung volumes. No parenchymal consolidation. No pleural effusion. No pneumothorax. Cardiomediastinal silhouette and pulmonary vascularity are within normal limits. No acute osseous abnormalities. Degenerative changes of the bilateral glenohumeral joints. XR/XR chest 1V IMPRESSION: No acute findings.
--- NOTE | ~2020-11-22 | CT_ITS ---
EXAMINATION: CT ANGIOGRAM OF THE CHEST WITH AND WITHOUT CONTRAST (CT PULMONARY ANGIOGRAM FOR PE) CLINICAL INFORMATION: Reason for Exam hemoptysis, elevated dimer COMPARISON: None TECHNIQUE: Prior to contrast administration, noncontrast localization images were obtained. Subsequently, multidetector volumetric imaging was performed from the thoracic inlet to below the diaphragms following the administration of 80 mL Omnipaque 350 intravenous contrast. No contrast reaction reported Sagittal, coronal, and MIP oblique sagittal reformatted images were obtained on the CT workstation, uploaded to PACS, and reviewed. This CT examination was performed using dose optimization techniques as appropriate, variously including the following: *Automated exposure control *Adjustment of mA and/or kV according to patient size (this includes techniques or standardized protocols for targeted exams where dose is matched to indication/reason for exam; i.e. extremities or head) *Use of iterative reconstruction technique Total exam dose-length product 436 mGy-cm FINDINGS: QUALITY OF STUDY/CONTRAST BOLUS: Satisfactory. PULMONARY ARTERIES: No central or segmental pulmonary emboli. THORACIC AORTA: No aneurysm or dissection. LUNG: No parenchymal consolidation, nodules or masses. Mild diffuse bronchial wall thickening without bronchiectasis. Minimal dependent atelectasis present within the right upper lobe. PLEURA: No pleural effusion or pneumothorax. MEDIASTINUM: Normal heart size. No pericardial effusion. No hilar or mediastinal lymphadenopathy. No evidence of septal bowing or right heart strain. No reflux of contrast into the hepatic veins to suggest elevated right heart pressures. CHEST WALL/AXILLA: No axillary or internal mammary lymphadenopathy. OSSEOUS STRUCTURES: No acute or suspicious osseous abnormality. UPPER ABDOMEN: Hepatic steatosis. CT/CT angio chest PE protocol IMPRESSION: No pulmonary embolism. No pneumonitis or parenchymal consolidation. Mild medium airway inflammation. VTE: negative
[2020-11-22 00:40] VITALS: BP 163/94; PULSE 91; RESP 20; TEMP 36.8; O2SAT 99; BMI 36.5
[2020-11-22 00:50] VITALS: BP 140/90; PULSE 97; O2SAT 96
--- NOTE | 2020-11-22 01:09 | ECG_ITS ---
Test Reason : SOB Blood Pressure : / mmHG Vent. Rate : 091 BPM Atrial Rate : 091 BPM P-R Int : 200 ms QRS Dur : 148 ms QT Int : 394 ms P-R-T Axes : 035 -38 027 degrees QTc Int : 484 ms Normal sinus rhythm Left axis deviation Right bundle branch block Abnormal ECG When compared with ECG of 18-SEP-2020 22:18, No significant change was found Referred By: Lisette Carbone Electronically Signed By:ISA HUSAIN
[2020-11-22 01:11] LABS: COVID-19 Test Negative (Negative)
[2020-11-22] MEDS: Albuterol Sulfate (0.083%) 2.5 MG/3 ML VIAL.NEB 5 MG INHALE (01:20)
[2020-11-22 01:24] VITALS: PULSE 91; O2SAT 97
--- NOTE | 2020-11-22 01:32 | ED.SOB ---
HPI - SOB/Dyspnea General Chief Complaint: Dyspnea Stated Complaint: SOB AND CHEST TIGHTNESS Time Seen by Provider: 11/22/20 00:46 Source: patient Mode of arrival: ambulatory Limitations: no limitations History of Present Illness HPI Narrative: Patient comes emergency room complaining of shortness of breath. Patient states that around 20:30, he was having sexual intercourse, afterwards he started having shortness of breath, chest tightness. Patient states that his asthma has been acting up lately. However, today he came because he started coughing up blood. Patient denies any fever or any chills. At this time, patient does not have any chest pain, states that he feels tight, thinks he could use a breathing treatment. Related Data Home Medications Medication Instructions Recorded Confirmed aspirin 81 mg tablet,delayed 81 mg PO DAILY 02/18/20 11/06/20 release atorvastatin 80 mg tablet (Lipitor) 80 mg PO DAILY 02/18/20 11/06/20 clotrimazole-betamethasone 1 1 appl TOPICAL BID 02/18/20 11/06/20 %-0.05 % topical cream fexofenadine 180 mg tablet 180 mg PO DAILY 02/18/20 11/06/20 fluticasone propionate 250 1 inh INHALATION BID 02/18/20 11/06/20 mcg/actuation blister powder for inhalation (Flovent Diskus) fluticasone propionate 50 2 spray INTRANASAL DAILY 02/18/20 11/06/20 mcg/actuation nasal spray,suspension (Flonase Allergy Relief) ipratropium 0.5 mg-albuterol 3 mg ml INHALATION 02/18/20 11/06/20 (2.5 mg base)/3 mL nebulization soln nystatin 100,000 unit/gram topical 1 appl TOPICAL BID 02/18/20 11/06/20 powder umeclidinium 62.5 mcg-vilanterol 1 inh INHALATION .QD ea 02/18/20 11/06/20 25 mcg/actuation powdr for inhalation (Anoro Ellipta) melatonin 5 mg capsule mg PO 02/24/20 11/06/20 cholecalciferol (vitamin D3) 25 75 mcg PO DAILY 04/29/20 11/06/20 mcg (1,000 unit) tablet hydrochlorothiazide 12.5 mg capsule 25 mg PO DAILY cap 04/29/20 11/06/20 dexlansoprazole 60 mg 60 mg PO DAILY 10/27/20 11/06/20 capsule,biphase delayed release (Dexilant) olmesartan 40 mg tablet 40 mg PO DAILY 10/27/20 11/06/20 prednisone 10 mg tablet 10 mg PO DAILY PRN tab 10/27/20 11/06/20 Previous Rx's Medication Instructions Recorded dextromethorphan-guaifenesin 30 1 tab PO Q12H 10 Days #20 tab 02/18/20 mg-600 mg tablet extended [id number] hr (Mucinex DM) naproxen 500 mg tablet 500 mg PO BID PRN 10 Days #20 tab 02/19/20 mupirocin 2 % topical ointment 1 appl TOPICAL TID PRN 10 Days #66 02/28/20 g nebulizer accessories #1 ea 03/04/20 alcohol swabs (Alcohol Prep Pads) 1 pad TOPICAL TID #300 pad 03/15/20 lancets 28 gauge (FreeStyle 28 gauge TOPICAL TID #300 ea 03/16/20 Lancets) amlodipine 10 mg tablet 10 mg PO DAILY #90 tab 05/11/20 azelastine 205.5 mcg (0.15 %) 2 spray INTRANASAL BID 30 Days #30 07/16/20 nasal spray ml glycopyrrolate 9 mcg-formoterol 2 puff INHALATION Q12H 30 Days 07/16/20 4.8 mcg HFA aerosol inhaler #10.7 g (Bevespi Aerosphere) metoprolol succinate 50 mg 75 mg PO DAILY 90 Days #135 tab 07/27/20 tablet,extended release 24 hr ezetimibe 10 mg tablet (Zetia) 10 mg PO DAILY #30 tab 07/29/20 albuterol sulfate 90 mcg/actuation 2 puff PO QID PRN 90 Days #3 units 08/12/20 aerosol inhaler (Ventolin HFA) gabapentin 400 mg capsule See Rx Instructions PO .COMPLEX 30 08/12/20 Days #120 cap sildenafil 50 mg tablet 50 mg PO DAILY PRN #10 cap 09/18/20 glipizide 5 mg tablet, extended 5 mg PO DAILY #90 tab 10/18/20 release 24 hr linagliptin 5 mg tablet (Tradjenta) 5 mg PO DAILY #30 tab 10/18/20 montelukast 10 mg tablet 10 mg PO QPM #90 tab 10/18/20 roflumilast 250 mcg tablet 250 mcg PO DAILY #30 tab 10/19/20 (Daliresp) zolpidem 10 mg tablet 10 mg PO BEDTIME PRN 30 Days #30 11/03/20 tab COMPRESSION STOCKINGS #3 ea 11/06/20 HIP BRACE (left hip) #1 ea 11/06/20 albuterol sulfate 2.5 mg CONTINUOUS NEBULIZATION QID 11/06/20 PRN 30 Days #480 ml blood sugar diagnostic (FreeStyle 1 strip MISCELLANEOUS TID #300 11/06/20 Lite Strips) strip budesonide 0.5 mg/2 mL suspension 0.5 mg INHALATION BID 30 Days #120 11/17/20 for nebulization ml lorazepam 0.5 mg tablet See Rx Instructions .ROUTE 11/20/20 .COMPLEX PRN 30 Days #60 tab azithromycin 250 mg tablet 250 mg PO DAILY 4 Days #4 tab 11/22/20 Allergies Allergy/AdvReac Type Severity Reaction Status Date / Time iodine [Iodine] Allergy Severe THROAT Verified 11/06/20 13:38 SWELLING lisinopril Allergy Severe Rash Verified 11/06/20 13:38 metformin Allergy Severe diarrhea Verified 11/06/20 13:38 meperidine [From Demerol] Allergy Mild RASH Verified 11/06/20 13:38 oxycodone [From Percocet] AdvReac Mild MOUTH Verified 11/06/20 13:38 DRYNESS,RASH Mercury Detox Allergy Severe Close Uncoded 11/06/20 13:38 Throat Shellfish Allergy Severe THROAT Uncoded 11/06/20 13:38 SWELLING Review of Systems Review of Systems: Constitutional : No Weight loss, No Fever, No Chills, No Night Sweats, No Fatigue, No Malaise ENT/Mouth : No Hearing loss, No Ear Pain, No Nasal Congestion, No Sinus Pain, No Hoarseness, No sore throat, No Rhinorrhea, No Swallowing Difficulty Eyes: No Eye Pain, No Swelling, No Redness, No Foreign Body, No Discharge, No Vision Changes Cardiovascular : Chest tightness, no palpitations, no edema Respiratory : 1 episode of hemoptysis,, No Sputum, No Wheezing, No Smoke Exposure, No Dyspnea Gastrointestinal : No Nausea, No Vomiting, No Diarrhea, No Constipation, No abdominal Pain, No Hematochezia, No Melena Genitourinary : no irregular bleeding, No Dysuria, No Urinary Frequency, No Hematuria, No Urinary Incontinence, No Urgency, No Flank Pain, No Urinary Flow Changes, No Hesitancy Musculoskeletal : No joint pain, No Myalgias, No Joint Swelling Skin : No Skin Lesions, No rash Neuro : No Weakness, No Numbness, No Paresthesias, No Loss of Consciousness, No Dizziness, No Headache Psych : No Anxiety/Panic, No Depression, No SI/HI/AH/VH, No Social Issues, Heme/Lymph: No Bruising, No Bleeding,No Lymphadenopathy Endocrine : No Polyuria, No Polydipsia, No Temperature Intolerance [facility] Past Medical History Medical History Anxiety Asthma Benign essential hypertension Chronic rhinitis Erectile dysfunction Hiatal hernia Insomnia Lumbar degenerative disc disease Major depressive disorder, recurrent Migraine Obesity (BMI 30-39.9) Pure hypercholesterolemia Stasis edema of both lower extremities Type 2 diabetes mellitus with hyperglycemia, without long-term current use of insulin Surgical History History of carpal tunnel surgery Family History Family History Father No problems noted. Mother Chronic kidney disease (CKD) Heart attack Other Mental health problem Social History Social History Housing: House Alcohol intake: unknown Patient Tobacco Use Status: Never used Tobacco Second Hand Smoke Exposure: Yes Use of substances other than those prescribed or required for medical reasons: Unknown Advance Directives: No Advance Directives Information Provided: Yes service: No Current occupational status: disabled Physical Exam Vital Signs: Vital Signs: Last Vital Signs Temp 98.2 F 11/22/20 00:40 Pulse 76 11/22/20 04:00 Resp 15 11/22/20 04:00 BP 178/98 H 11/22/20 04:00 Pulse Ox 96 11/22/20 04:00 Oxygen Flow Rate 3 11/22/20 00:40 Body Mass Index 36.5 Const: Other: Appearance: Alert. Oriented X3. No acute distress. Eyes: Pupils equal, round and reactive to light. ENT: Pharynx normal. Neck: Normal inspection. Neck supple. No lymph nodes noted. No crepitus CVS: Normal heart rate and rhythm. Pulses normal. Normal S1 and S2 Respiratory: No respiratory distress. Mild bilateral wheezing, No rales Abdomen: Soft and nontender. No rigidity. No distention. good BS x4 Skin: Skin warm and dry. Normal skin color. Normal skin turgor. Extremities: No lower extremity edema. No Lacerations. No Rash Neuro: Oriented X 3. No motor deficit. No sensory deficit. Moving all extermities. No slurred speech. Course Course Course Narrative: Patient's D-dimer is positive, at this time we cannot do a CT scan with IV contrast due to the patient's allergy to contrast, causing anaphylaxis. I discussed the patient with Dr. Esparza, who was able to get records from [facility]. Patient has had angiograms done, patient did not have an allergic reaction. I discussed the iodine allergy with the patient, patient states that he is allergic to shellfish, but he has never had issues with contrast to his knowledge. I discussed that we need to do a CTA to rule out PE. Patient agrees to go ahead and get the study done. Patient will be medicated with Solu-Medrol, Pepcid, Benadryl. Patient tolerated well the CT scan. No DVT. Patient does not have pneumonia either. However, due to history of hemoptysis, we will go ahead and prescribe antibiotics and discharged home Patient's troponin 2. Negative, patient is asymptomatic. Patient ready for discharge. MDM - SOB/Dyspnea Lab Data Result diagrams: 11/22/20 02:05 11/22/20 02:05 Labs: Lab Results 11/22/20 11/22/20 11/22/20 Range/Units 00:49 02:05 02:05 WBC 10.2 (4.8-10.8) X10*3/uL RBC 4.89 (4.60-5.80) X10*6/uL Hgb 14.7 (14.0-18.0) g/dl Hct 43.4 (42-52) % MCV 88.8 (80-98) fL MCH 30.1 (27.0-33.0) pg MCHC 33.9 (31.0-36.0) g/dl RDW 12.1 (11.0-16.0) % Plt Count 243 (160-400) X10*3/uL MPV 10.9 (9.4-12.4) fL Immature Gran % (Auto) 0.9 H (0.0-0.4) % Neut % (Auto) 77.7 H (45-73) % Lymph % (Auto) 13.8 L (20-40) % [place] % (Auto) 5.9 (2-11) % Eos % (Auto) 1.2 (0-4) % Baso % (Auto) 0.5 (0-2) % Lymph # (Auto) 1.4 (1.2-4.9) X10*3/uL [place] # (Auto) 0.6 (0.1-1.2) X10*3/uL Eos # (Auto) 0.1 (0.0-0.4) X10*3/uL Baso # (Auto) 0.1 (0.0-0.2) X10*3/uL Abs Immat Gran (auto) 0.09 H (0.00-0.03) X10*3/uL Absolute Neuts (auto) 7.9 (2.0-8.3) X10*3/uL Absolute Nucleated RBC 0.000 (0.0-0.012) X10*3/uL Nucleated RBC % (auto) 0.0 (0.0-0.2) /100WBC D-Dimer NG/ML Sodium 137 (135-145) mmol/L Potassium 4.2 (3.3-5.1) mmol/L Chloride 104 (96-108) mmol/L Carbon Dioxide 24 (22-29) mmol/L Anion Gap 13 (12-20) BUN 17 H (9-16) mg/dL Creatinine 1.39 (0.5-1.4) mg/dL Estim Creat Clear Calc 70.9 Estimated GFR 53 Random Glucose 261 H (60-115) mg/dL Lactic Acid (0.5-2.0) mmol/L Calcium 9.1 (8.4-10.2) mg/dL Total Bilirubin 0.5 (0.0-1.0) mg/dL Direct Bilirubin 0.2 (0.0-0.5) mg/dL AST 21 (5-37) U/L ALT 38 (0-40) U/L Alkaline Phosphatase 77 (39-117) U/L Troponin I High Sens (<3.5-35.0) ng/L B-Natriuretic Peptide (<100) pg/mL Total Protein 6.5 (6.5-8.0) g/dL Albumin 4.0 (3.5-5.0) g/dL Urine Color Urine Appearance Urine pH (5.0-8.0) Ur Specific [place] (1.005-1.025) Urine Protein (NEG-TRACE) MG/DL Urine Glucose (UA) (NEG) MG/DL Urine Ketones (NEG) MG/DL Urine Blood (NEG) Urine Nitrite (NEG) Ur Leukocyte Esterase (NEG) Urine RBC (0) /HPF Urine WBC (0-4) /HPF Ur Squamous Epith Cells /LPF Urine Bacteria /LPF COVID-19 (ANGEL) Negative (Negative) COVID-19 Clin Com See Note 11/22/20 11/22/20 11/22/20 Range/Units 02:05 02:05 02:05 WBC (4.8-10.8) X10*3/uL RBC (4.60-5.80) X10*6/uL Hgb (14.0-18.0) g/dl Hct (42-52) % MCV (80-98) fL MCH (27.0-33.0) pg MCHC (31.0-36.0) g/dl RDW (11.0-16.0) % Plt Count (160-400) X10*3/uL MPV (9.4-12.4) fL Immature Gran % (Auto) (0.0-0.4) % Neut % (Auto) (45-73) % Lymph % (Auto) (20-40) % [place] % (Auto) (2-11) % Eos % (Auto) (0-4) % Baso % (Auto) (0-2) % Lymph # (Auto) (1.2-4.9) X10*3/uL [place] # (Auto) (0.1-1.2) X10*3/uL Eos # (Auto) (0.0-0.4) X10*3/uL Baso # (Auto) (0.0-0.2) X10*3/uL Abs Immat Gran (auto) (0.00-0.03) X10*3/uL Absolute Neuts (auto) (2.0-8.3) X10*3/uL Absolute Nucleated RBC (0.0-0.012) X10*3/uL Nucleated RBC % (auto) (0.0-0.2) /100WBC D-Dimer 327 NG/ML Sodium (135-145) mmol/L Potassium (3.3-5.1) mmol/L Chloride (96-108) mmol/L Carbon Dioxide (22-29) mmol/L Anion Gap (12-20) BUN (9-16) mg/dL Creatinine (0.5-1.4) mg/dL Estim Creat Clear Calc Estimated GFR Random Glucose (60-115) mg/dL Lactic Acid 2.0 (0.5-2.0) mmol/L Calcium (8.4-10.2) mg/dL Total Bilirubin (0.0-1.0) mg/dL Direct Bilirubin (0.0-0.5) mg/dL AST (5-37) U/L ALT (0-40) U/L Alkaline Phosphatase (39-117) U/L Troponin I High Sens 9.3 D (<3.5-35.0) ng/L B-Natriuretic Peptide 32 (<100) pg/mL Total Protein (6.5-8.0) g/dL Albumin (3.5-5.0) g/dL Urine Color Urine Appearance Urine pH (5.0-8.0) Ur Specific [place] (1.005-1.025) Urine Protein (NEG-TRACE) MG/DL Urine Glucose (UA) (NEG) MG/DL Urine Ketones (NEG) MG/DL Urine Blood (NEG) Urine Nitrite (NEG) Ur Leukocyte Esterase (NEG) Urine RBC (0) /HPF Urine WBC (0-4) /HPF Ur Squamous Epith Cells /LPF Urine Bacteria /LPF COVID-19 (ANGEL) (Negative) COVID-19 Clin Com 11/22/20 11/22/20 Range/Units 02:42 04:44 WBC (4.8-10.8) X10*3/uL RBC (4.60-5.80) X10*6/uL Hgb (14.0-18.0) g/dl Hct (42-52) % MCV (80-98) fL MCH (27.0-33.0) pg MCHC (31.0-36.0) g/dl RDW (11.0-16.0) % Plt Count (160-400) X10*3/uL MPV (9.4-12.4) fL Immature Gran % (Auto) (0.0-0.4) % Neut % (Auto) (45-73) % Lymph % (Auto) (20-40) % [place] % (Auto) (2-11) % Eos % (Auto) (0-4) % Baso % (Auto) (0-2) % Lymph # (Auto) (1.2-4.9) X10*3/uL [place] # (Auto) (0.1-1.2) X10*3/uL Eos # (Auto) (0.0-0.4) X10*3/uL Baso # (Auto) (0.0-0.2) X10*3/uL Abs Immat Gran (auto) (0.00-0.03) X10*3/uL Absolute Neuts (auto) (2.0-8.3) X10*3/uL Absolute Nucleated RBC (0.0-0.012) X10*3/uL Nucleated RBC % (auto) (0.0-0.2) /100WBC D-Dimer NG/ML Sodium (135-145) mmol/L Potassium (3.3-5.1) mmol/L Chloride (96-108) mmol/L Carbon Dioxide (22-29) mmol/L Anion Gap (12-20) BUN (9-16) mg/dL Creatinine (0.5-1.4) mg/dL Estim Creat Clear Calc Estimated GFR Random Glucose (60-115) mg/dL Lactic Acid (0.5-2.0) mmol/L Calcium (8.4-10.2) mg/dL Total Bilirubin (0.0-1.0) mg/dL Direct Bilirubin (0.0-0.5) mg/dL AST (5-37) U/L ALT (0-40) U/L Alkaline Phosphatase (39-117) U/L Troponin I High Sens 12.4 (<3.5-35.0) ng/L B-Natriuretic Peptide (<100) pg/mL Total Protein (6.5-8.0) g/dL Albumin (3.5-5.0) g/dL Urine Color YELLOW Urine Appearance CLEAR Urine pH 6.5 (5.0-8.0) Ur Specific [place] 1.020 (1.005-1.025) Urine Protein 1+ H (NEG-TRACE) MG/DL Urine Glucose (UA) >=1000 H (NEG) MG/DL Urine Ketones 5 (NEG) MG/DL Urine Blood NEG (NEG) Urine Nitrite NEG (NEG) Ur Leukocyte Esterase NEG (NEG) Urine RBC 1-4 (0) /HPF Urine WBC 1-4 (0-4) /HPF Ur Squamous Epith Cells 1+ /LPF Urine Bacteria 1+ /LPF COVID-19 (ANGEL) (Negative) COVID-19 Clin Com Imaging Data Chest x-ray: Radiologist's impression: Normal symmetric lung volumes. No parenchymal consolidation. No pleural effusion. No pneumothorax.? Cardiomediastinal silhouette and pulmonary vascularity are within normal limits. No acute osseous abnormalities. Degenerative changes of the bilateral glenohumeral joints. XR/XR chest 1V IMPRESSION: No acute findings. CTA: Radiologist's impression: FINDINGS: QUALITY OF STUDY/CONTRAST BOLUS: Satisfactory. PULMONARY ARTERIES: No central or segmental pulmonary emboli.? THORACIC AORTA: No aneurysm or dissection. LUNG: No parenchymal consolidation, nodules or masses. Mild diffuse bronchial wall thickening without bronchiectasis. Minimal dependent atelectasis present within the right upper lobe. PLEURA: No pleural effusion or pneumothorax. MEDIASTINUM: Normal heart size.? No pericardial effusion.? No hilar or mediastinal lymphadenopathy.? No evidence of septal bowing or right heart strain. No reflux of contrast into the hepatic veins to suggest elevated right heart pressures. CHEST WALL/AXILLA: No axillary or internal mammary lymphadenopathy. OSSEOUS STRUCTURES: No acute or suspicious osseous abnormality.? UPPER ABDOMEN: Hepatic steatosis. CT/CT angio chest PE protocol IMPRESSION: No pulmonary embolism. No pneumonitis or parenchymal consolidation. Mild medium airway inflammation. ? VTE: negative ECG Data Attestation: I personally reviewed and interpreted this ECG as follows: (Sinus rhythm, right bundle branch block, heart rate 91, nonspecific ST changes, QTC 484, no EKG changes since September 2020) Discharge Plan Discharge Clinical Impression: Hemoptysis, Atypical chest pain, Acute dyspnea, Bronchitis Patient Disposition: Home, Self-Care Instructions: Acute Bronchitis (ED), Hemoptysis (ED), Chest Pain (ED) Additional Instructions: Please follow-up with your primary care physician tomorrow. If you have any worsening or new symptoms, please return to the emergency room or call 911 Prescriptions: New azithromycin 250 mg tablet 250 mg PO DAILY 4 Days Qty: 4 RF: 0 No Action mupirocin 2 % ointment 1 appl topical TID PRN (Reason: infection) 10 Days Qty: 66 RF: 2 (DME) nebulizer accessories Misc See Rx Instructions .ROUTE .MEDSUPPLY Qty: 1 RF: 11 alcohol swabs [Alcohol Prep Pads] Pads, Medicated 1 pad topical TID Qty: 300 RF: 1 lancets [FreeStyle Lancets] 28 gauge misc 28 gauge topical TID Qty: 300 RF: 0 ezetimibe [Zetia] 10 mg tablet 10 mg PO DAILY Qty: 30 RF: 5 sildenafil 50 mg tablet 50 mg PO DAILY PRN (Reason: sexual activity) Qty: 10 RF: 1 glipizide 5 mg tablet extended release 24hr 5 mg PO DAILY Qty: 90 RF: 1 Tradjenta 5 mg tablet 5 mg PO DAILY Qty: 30 RF: 0 montelukast 10 mg tablet 10 mg PO QPM Qty: 90 RF: 0 Daliresp 250 mcg tablet 250 mcg PO DAILY Qty: 30 RF: 3 zolpidem 10 mg tablet 10 mg PO BEDTIME PRN (Reason: insomnia) 30 Days Qty: 30 RF: 0 budesonide 0.5 mg/2 mL suspension for nebulization 0.5 mg inhalation BID 30 Days Qty: 120 RF: 6 lorazepam 0.5 mg tablet See Rx Instructions .ROUTE .COMPLEX PRN (Reason: anxiety) 30 Days Qty: 60 RF: 0 gabapentin 400 mg capsule See Rx Instructions PO .COMPLEX 30 Days Qty: 120 RF: 3 albuterol sulfate [Ventolin HFA] 90 mcg/actuation HFA aerosol inhaler 2 puff PO QID PRN (Reason: shortness of breath or wheezing) 90 Days Qty: 3 RF: 3 (DME) HIP BRACE (left hip) See Rx Instructions .Route .MEDSUPPLY Qty: 1 RF: 0 (DME) COMPRESSION STOCKINGS medium compression See Rx Instructions .Route .MEDSUPPLY Qty: 3 RF: 0 FreeStyle Lite Strips Strip 1 strip miscellaneous TID Qty: 300 RF: 11 albuterol sulfate 2.5 mg /3 mL (0.083 %) solution for nebulization 2.5 mg continuous nebulization QID PRN (Reason: shortness of breath or wheezing) 30 Days Qty: 480 RF: 5 aspirin 81 mg tablet,delayed release (DR/EC) 81 mg PO DAILY RF: 0 clotrimazole-betamethasone 1-0.05 % cream 1 appl topical BID RF: 0 fluticasone propionate [Flonase Allergy Relief] 50 mcg/actuation spray,suspension 2 spray intranasal DAILY RF: 0 fexofenadine 180 mg tablet 180 mg PO DAILY RF: 0 nystatin 100,000 unit/gram powder 1 appl topical BID RF: 0 atorvastatin [Lipitor] 80 mg tablet 80 mg PO DAILY RF: 0 ipratropium-albuterol 0.5 mg-3 mg(2.5 mg base)/3 mL solution for nebulization inhalation RF: 0 Mucinex DM 30-600 mg tablet extended release 12 hr 1 tab PO Q12H 10 Days Qty: 20 RF: 0 Flovent Diskus 250 mcg/actuation blister with device 1 inh inhalation BID RF: 0 Anoro Ellipta 62.5-25 mcg/actuation blister with device 1 inh inhalation .QD RF: 0 naproxen 500 mg tablet 500 mg PO BID PRN (Reason: pain) 10 Days Qty: 20 RF: 0 hydrochlorothiazide 12.5 mg capsule 25 mg PO DAILY RF: 0 Dexilant 60 mg capsule,biphase delayed releas 60 mg PO DAILY RF: 0 olmesartan 40 mg tablet 40 mg PO DAILY RF: 0 melatonin 5 mg capsule PO RF: 0 amlodipine 10 mg tablet 10 mg PO DAILY Qty: 90 RF: 1 Bevespi Aerosphere 9-4.8 mcg HFA aerosol inhaler 2 puff inhalation Q12H 30 Days Qty: 10.7 RF: 11 azelastine 205.5 mcg (0.15 %) spray,non-aerosol 2 spray intranasal BID 30 Days Qty: 30 RF: 11 cholecalciferol (vitamin D3) 25 mcg (1,000 unit) tablet 75 mcg PO DAILY RF: 0 metoprolol succinate 50 mg tablet extended release 24 hr 75 mg PO DAILY 90 Days Qty: 135 RF: 1 prednisone 10 mg tablet 10 mg PO DAILY PRNRF: 0
[2020-11-22 02:00] VITALS: BP 147/82; PULSE 92; RESP 21; O2SAT 96
[2020-11-22 02:14] LABS: MANUAL DIFF FLAG NO
[2020-11-22 02:20] LABS: Basophils Absolute Auto 0.1 X10*3/uL (0.0-0.2); Basophils Percent Auto 0.5 % (0-2); Eosinophils Absolute Auto 0.1 X10*3/uL (0.0-0.4); Eosinophils Percent Auto 1.2 % (0-4); Hematocrit 43.4 % (42-52); Hemoglobin 14.7 g/dl (14.0-18.0); Imm Gran Abs Auto 0.09 X10*3/uL (0.00-0.03); Imm Gran Pct Auto 0.9 % (0.0-0.4); Lymphocytes Absolute Auto 1.4 X10*3/uL (1.2-4.9); Lymphocytes Percent Auto 13.8 % (20-40); Mean Corpuscular HGB Conc 33.9 g/dl (31.0-36.0); Mean Corpuscular Hemoglobin 30.1 pg (27.0-33.0); Mean Corpuscular Volume 88.8 fL (80-98); Mean Platelet Volume 10.9 fL (9.4-12.4); Monocytes Absolute Auto 0.6 X10*3/uL (0.1-1.2); Monocytes Percent Auto 5.9 % (2-11); Neutrophils Absolute Auto 7.9 X10*3/uL (2.0-8.3); Neutrophils Percent Auto 77.7 % (45-73); Platelet Count 243 X10*3/uL (160-400); Red Blood Count 4.89 X10*6/uL (4.60-5.80); Red Cell Distribution Width 12.1 % (11.0-16.0); White Blood Count 10.2 X10*3/uL (4.8-10.8)
[2020-11-22] MEDS: methylPREDNISolone Sod Succ 125 MG/2 ML VIAL IVPUSH ×2 (02:29→03:40)
[2020-11-22 02:30] LABS: D Dimer 327 NG/ML
[2020-11-22 02:37] LABS: Alanine Aminotransferase 38 U/L (0-40); Alkaline Phosphatase 77 U/L (39-117); Anion Gap 13 (12-20); Aspartate Amino Transferase 21 U/L (5-37); B Type Natriuretic Peptide 32 pg/mL (<100); Bilirubin Direct 0.2 mg/dL (0.0-0.5); Bilirubin Total 0.5 mg/dL (0.0-1.0); Blood Urea Nitrogen 17 mg/dL (9-16); Calcium 9.1 mg/dL (8.4-10.2); Carbon Dioxide 24 mmol/L (22-29); Chloride 104 mmol/L (96-108); Creatinine Clr Calc Pharmacy 70.9; Estimated Glomerular Filt Rate 53; Glucose Random 261 mg/dL (60-115); Potassium 4.2 mmol/L (3.3-5.1); Sodium 137 mmol/L (135-145); Total Protein 6.5 g/dL (6.5-8.0); Troponin-I High Sensitivity 9.3 ng/L (<3.5-35.0)
[2020-11-22 02:50] LABS: Glucose Urine UA >=1000 MG/DL (NEG); Leukocyte Esterase Urine NEG (NEG); Nitrite Urine NEG (NEG); PH 6.5 (5.0-8.0); UACC Culture Trigger NO; Urine Blood NEG (NEG); Urine Ketones 5 MG/DL (NEG); Urine Protein 1+ MG/DL (NEG-TRACE)
[2020-11-22 02:56] LABS: Appearance Urine CLEAR; Color Urine YELLOW
[2020-11-22 02:57] LABS: Bacteria Urine 1+ /LPF; Squamous Epithelial Cell Urine 1+ /LPF
[2020-11-22] MEDS: Famotidine/PF 20 MG/2 ML VIAL IVPUSH (03:40)
[2020-11-22] MEDS: diphenhydrAMINE HCL 50 MG/ML VIAL IVPUSH (03:40)
[2020-11-22] MEDS: iohexoL 350 MG/ML 100 ML INFUS..BTL 85 ML IV (03:40)
[2020-11-22 04:00] VITALS: BP 178/98; PULSE 76; RESP 15; O2SAT 96
[2020-11-22 05:08] LABS: Troponin-I High Sensitivity 12.4 ng/L (<3.5-35.0)
[2020-11-22] MEDS: Azithromycin 500 MG TABLET PO (06:05)
== END 2020-11-22 06:24 | disposition home or self-care (01) ==
PROVIDERS: Emergency Provider Emergency Medicine
DX: J20.9 Acute bronchitis, unspecified (principal); R06.02 Shortness of breath; R04.2 Hemoptysis; R07.89 Other chest pain; R07.9 Chest pain, unspecified; Z20.822 Contact with and (suspected) exposure to COVID-19; Z79.899 Other long term (current) drug therapy; Z79.82 Long term (current) use of aspirin
CPT/HCPCS: 36415; 71045; 71275; 80048; 80076; 81001; 83605; 83880; 84484; 85025; 85379; 87040; 87635; 93005; 94640; 96365; 96375; 96376; 99284; J1200; J2930; Q9967

== ENCOUNTER → 2020-11-30 08:58 | Outpatient (BNVA) | payer OTHER, SELFPAY | PROVIDERS: PCP Internal Medicine; Visit Provider Hospitalist | DX: R04.2 Hemoptysis (principal); J45.901 Unspecified asthma with (acute) exacerbation; K44.9 Diaphragmatic hernia without obstruction or gangrene | CPT/HCPCS: 99212 ==

== ENCOUNTER 2020-12-04 22:39 | Emergency (ER) | payer OTHER, SELFPAY ==
--- NOTE | ~2020-12-04 | XR_ITS ---
EXAMINATION: XR CHEST CLINICAL INFORMATION: Shortness of breath. COMPARISON: Chest x-ray November 22, 2020 TECHNIQUE: Frontal portable view of the chest was obtained. 10:55 PM FINDINGS: No significant abnormality is noted involving the heart, lungs, mediastinum, bony thorax or soft tissues. XR/XR chest 1V IMPRESSION: Unremarkable examination.
--- NOTE | 2020-12-04 22:50 | ECG_ITS ---
Test Reason : SOB Blood Pressure : / mmHG Vent. Rate : 096 BPM Atrial Rate : 096 BPM P-R Int : 170 ms QRS Dur : 140 ms QT Int : 384 ms P-R-T Axes : 023 -45 012 degrees QTc Int : 485 ms Normal sinus rhythm Left axis deviation Right bundle branch block Abnormal ECG When compared with ECG of 22-NOV-2020 00:45, No significant change was found Referred By: Generic ED Physician Electronically Signed By:ISA HUSAIN
--- NOTE | 2020-12-04 22:53 | ED.SOB ---
HPI - SOB/Dyspnea General Chief Complaint: Dyspnea Stated Complaint: diff breathing Time Seen by Provider: 12/04/20 22:53 Source: patient Mode of arrival: EMS Limitations: no limitations History of Present Illness HPI Narrative: Patient with no known history of lung disease occasional bronchitis this time been coughing for last 2 weeks seen here on 11/30 for same started on prednisone and albuterol inhaler comes back as just prior to arrival was very short of breath with wheezing no chest pain no leg swelling no fever no chills has mostly dry cough with occasional mucoid phlegm Related Data Home Medications Medication Instructions Recorded Confirmed aspirin 81 mg tablet,delayed 81 mg PO DAILY 02/18/20 11/06/20 release atorvastatin 80 mg tablet (Lipitor) 80 mg PO DAILY 02/18/20 11/06/20 clotrimazole-betamethasone 1 1 appl TOPICAL BID 02/18/20 11/06/20 %-0.05 % topical cream fexofenadine 180 mg tablet 180 mg PO DAILY 02/18/20 11/06/20 fluticasone propionate 250 1 inh INHALATION BID 02/18/20 11/06/20 mcg/actuation blister powder for inhalation (Flovent Diskus) fluticasone propionate 50 2 spray INTRANASAL DAILY 02/18/20 11/06/20 mcg/actuation nasal spray,suspension (Flonase Allergy Relief) ipratropium 0.5 mg-albuterol 3 mg ml INHALATION 02/18/20 11/06/20 (2.5 mg base)/3 mL nebulization soln nystatin 100,000 unit/gram topical 1 appl TOPICAL BID 02/18/20 11/06/20 powder umeclidinium 62.5 mcg-vilanterol 1 inh INHALATION .QD ea 02/18/20 11/06/20 25 mcg/actuation powdr for inhalation (Anoro Ellipta) melatonin 5 mg capsule mg PO 02/24/20 11/06/20 cholecalciferol (vitamin D3) 25 75 mcg PO DAILY 04/29/20 11/06/20 mcg (1,000 unit) tablet hydrochlorothiazide 12.5 mg capsule 25 mg PO DAILY cap 04/29/20 11/06/20 dexlansoprazole 60 mg 60 mg PO DAILY 10/27/20 11/06/20 capsule,biphase delayed release (Dexilant) olmesartan 40 mg tablet 40 mg PO DAILY 10/27/20 11/06/20 prednisone 10 mg tablet 10 mg PO DAILY PRN tab 10/27/20 11/06/20 Previous Rx's Medication Instructions Recorded dextromethorphan-guaifenesin 30 1 tab PO Q12H 10 Days #20 tab 02/18/20 mg-600 mg tablet extended eeoduna19 hr (Mucinex DM) naproxen 500 mg tablet 500 mg PO BID PRN 10 Days #20 tab 02/19/20 mupirocin 2 % topical ointment 1 appl TOPICAL TID PRN 10 Days #66 02/28/20 g nebulizer accessories #1 ea 03/04/20 alcohol swabs (Alcohol Prep Pads) 1 pad TOPICAL TID #300 pad 03/15/20 lancets 28 gauge (FreeStyle 28 gauge TOPICAL TID #300 ea 03/16/20 Lancets) amlodipine 10 mg tablet 10 mg PO DAILY #90 tab 05/11/20 azelastine 205.5 mcg (0.15 %) 2 spray INTRANASAL BID 30 Days #30 07/16/20 nasal spray ml glycopyrrolate 9 mcg-formoterol 2 puff INHALATION Q12H 30 Days 07/16/20 4.8 mcg HFA aerosol inhaler #10.7 g (Bevespi Aerosphere) metoprolol succinate 50 mg 75 mg PO DAILY 90 Days #135 tab 07/27/20 tablet,extended release 24 hr ezetimibe 10 mg tablet (Zetia) 10 mg PO DAILY #30 tab 07/29/20 albuterol sulfate 90 mcg/actuation 2 puff PO QID PRN 90 Days #3 units 08/12/20 aerosol inhaler (Ventolin HFA) gabapentin 400 mg capsule See Rx Instructions PO .COMPLEX 30 08/12/20 Days #120 cap sildenafil 50 mg tablet 50 mg PO DAILY PRN #10 cap 09/18/20 glipizide 5 mg tablet, extended 5 mg PO DAILY #90 tab 10/18/20 release 24 hr montelukast 10 mg tablet 10 mg PO QPM #90 tab 10/18/20 roflumilast 250 mcg tablet 250 mcg PO DAILY #30 tab 10/19/20 (Daliresp) zolpidem 10 mg tablet 10 mg PO BEDTIME PRN 30 Days #30 11/03/20 tab COMPRESSION STOCKINGS #3 ea 11/06/20 HIP BRACE (left hip) #1 ea 11/06/20 albuterol sulfate 2.5 mg CONTINUOUS NEBULIZATION QID 11/06/20 PRN 30 Days #480 ml blood sugar diagnostic (FreeStyle 1 strip MISCELLANEOUS TID #300 11/06/20 Lite Strips) strip budesonide 0.5 mg/2 mL suspension 0.5 mg INHALATION BID 30 Days #120 11/17/20 for nebulization ml lorazepam 0.5 mg tablet See Rx Instructions .ROUTE 11/20/20 .COMPLEX PRN 30 Days #60 tab azithromycin 250 mg tablet 250 mg PO DAILY 4 Days #4 tab 11/22/20 linagliptin 5 mg tablet (Tradjenta) 5 mg PO DAILY #30 tab 11/22/20 codeine 10 mg-guaifenesin 100 mg/5 10 ml PO Q4-6H PRN #237 ml 12/05/20 mL oral liquid doxycycline hyclate 100 mg tablet 100 mg PO BID #20 tab 12/05/20 prednisone 20 mg tablet 40 mg PO DAILY #10 tab 12/05/20 Allergies Allergy/AdvReac Type Severity Reaction Status Date / Time iodine [Iodine] Allergy Severe THROAT Verified 11/30/20 09:18 SWELLING lisinopril Allergy Severe Rash Verified 11/30/20 09:18 metformin Allergy Severe diarrhea Verified 11/30/20 09:18 meperidine [From Demerol] Allergy Mild RASH Verified 11/30/20 09:18 oxycodone [From Percocet] AdvReac Mild MOUTH Verified 11/30/20 09:18 DRYNESS,RASH Mercury Detox Allergy Severe Close Uncoded 11/30/20 09:18 Throat Shellfish Allergy Severe THROAT Uncoded 11/30/20 09:18 SWELLING Review of Systems Review of Systems: Yes all other systems are reviewed and are negative PMFSH Past Medical History Medical History Anxiety Asthma Benign essential hypertension Chronic rhinitis Erectile dysfunction GERD (gastroesophageal reflux disease) Hemoptysis Hiatal hernia Insomnia Lumbar degenerative disc disease Major depressive disorder, recurrent Migraine Obesity (BMI 30-39.9) Pure hypercholesterolemia Stasis edema of both lower extremities Type 2 diabetes mellitus with hyperglycemia, without long-term current use of insulin Surgical History History of carpal tunnel surgery Family History Family History Father No problems noted. Mother Chronic kidney disease (CKD) Heart attack Other Mental health problem Social History Social History Housing: House Alcohol intake: never Patient Tobacco Use Status: Never used Tobacco Second Hand Smoke Exposure: Yes Use of substances other than those prescribed or required for medical reasons: No Advance Directives: No Advance Directives Information Provided: Yes service: No Current occupational status: disabled Physical Exam Vital Signs: Vital Signs: Last Vital Signs Temp 99.2 F 12/04/20 23:01 Pulse 94 12/05/20 00:00 Resp 20 12/05/20 00:00 BP 165/82 H 12/05/20 00:00 Pulse Ox 100 12/05/20 00:00 Body Mass Index 28.8 Appearance: Alert. Oriented X3. No acute distress. Eyes: No pallor or icterus ENT: Pharynx normal. Oral Mucosa moist Neck: Normal inspection. Neck supple. CVS: Normal heart rate and rhythm. Pulses normal. Respiratory: Mild respiratory distress. Equal air entry bilateral, bilateral wheezing and rhonchi no crackles Abdomen: Soft and nontender. Bowel sounds are present, no mass palpable, no CVA tenderness Skin: Skin warm and dry. Normal skin color. Normal skin turgor. Extremities: No lower extremity edema. No calf tenderness Neuro: Oriented X 3. MDM - SOB/Dyspnea MDM Narrative Medical decision making narrative: Patient with acute bronchitis chest x-ray negative co COVID negative labs are stable patient felt much better after nebulizing treatment and steroid will discharge patient on steroid and doxycycline Lab Data Result diagrams: 12/04/20 23:18 12/04/20 23:18 Labs: Lab Results 12/04/20 12/04/20 12/04/20 Range/Units 23:00 23:18 23:18 WBC 8.1 (4.8-10.8) X10*3/uL RBC 4.70 (4.60-5.80) X10*6/uL Hgb 14.1 (14.0-18.0) g/dl Hct 41.5 L (42-52) % MCV 88.3 (80-98) fL MCH 30.0 (27.0-33.0) pg MCHC 34.0 (31.0-36.0) g/dl RDW 12.2 (11.0-16.0) % Plt Count 257 (160-400) X10*3/uL MPV 10.8 (9.4-12.4) fL Immature Gran % (Auto) 0.6 H (0.0-0.4) % Neut % (Auto) 74.8 H (45-73) % Lymph % (Auto) 15.8 L (20-40) % [place] % (Auto) 6.5 (2-11) % Eos % (Auto) 1.7 (0-4) % Baso % (Auto) 0.6 (0-2) % Lymph # (Auto) 1.3 (1.2-4.9) X10*3/uL [place] # (Auto) 0.5 (0.1-1.2) X10*3/uL Eos # (Auto) 0.1 (0.0-0.4) X10*3/uL Baso # (Auto) 0.1 (0.0-0.2) X10*3/uL Abs Immat Gran (auto) 0.05 H (0.00-0.03) X10*3/uL Absolute Neuts (auto) 6.1 (2.0-8.3) X10*3/uL Absolute Nucleated RBC 0.000 (0.0-0.012) X10*3/uL Nucleated RBC % (auto) 0.0 (0.0-0.2) /100WBC Sodium 136 (135-145) mmol/L Potassium 4.2 (3.3-5.1) mmol/L Chloride 103 (96-108) mmol/L Carbon Dioxide 24 (22-29) mmol/L Anion Gap 13 (12-20) BUN 15 (9-16) mg/dL Creatinine 1.21 (0.5-1.4) mg/dL Estim Creat Clear Calc 77.2 Estimated GFR > 60 Random Glucose 245 H (60-115) mg/dL Calcium 9.4 (8.4-10.2) mg/dL Coronavirus (PCR) NEGATIVE (Negative) Influenza Type A (PCR) NEGATIVE (Negative) Influenza Type B (PCR) NEGATIVE (Negative) RSV RNA Qual (PCR) NEGATIVE (Negative) Discharge Plan Discharge Clinical Impression: Bronchitis Patient Disposition: Home, Self-Care Instructions: Acute Bronchitis (ED) Additional Instructions: Continue your albuterol nebulizing treatment Take prednisone as advised Your blood sugar will go high , increase the dose of glipizide to 10 mg while taking prednisone and keep checking a blood sugar on a regular basis Antibiotic as advised for bronchitis Prescriptions: New prednisone 20 mg tablet 40 mg PO DAILY Qty: 10 RF: 0 doxycycline hyclate 100 mg tablet 100 mg PO BID Qty: 20 RF: 0 codeine-guaifenesin 10-100 mg/5 mL liquid 10 ml PO Q4-6H PRN (Reason: cough) Qty: 237 RF: 0 No Action mupirocin 2 % ointment 1 appl topical TID PRN (Reason: infection) 10 Days Qty: 66 RF: 2 (DME) nebulizer accessories Misc See Rx Instructions .ROUTE .MEDSUPPLY Qty: 1 RF: 11 alcohol swabs [Alcohol Prep Pads] Pads, Medicated 1 pad topical TID Qty: 300 RF: 1 lancets [FreeStyle Lancets] 28 gauge misc 28 gauge topical TID Qty: 300 RF: 0 ezetimibe [Zetia] 10 mg tablet 10 mg PO DAILY Qty: 30 RF: 5 sildenafil 50 mg tablet 50 mg PO DAILY PRN (Reason: sexual activity) Qty: 10 RF: 1 glipizide 5 mg tablet extended release 24hr 5 mg PO DAILY Qty: 90 RF: 1 montelukast 10 mg tablet 10 mg PO QPM Qty: 90 RF: 0 Daliresp 250 mcg tablet 250 mcg PO DAILY Qty: 30 RF: 3 zolpidem 10 mg tablet 10 mg PO BEDTIME PRN (Reason: insomnia) 30 Days Qty: 30 RF: 0 budesonide 0.5 mg/2 mL suspension for nebulization 0.5 mg inhalation BID 30 Days Qty: 120 RF: 6 lorazepam 0.5 mg tablet See Rx Instructions .ROUTE .COMPLEX PRN (Reason: anxiety) 30 Days Qty: 60 RF: 0 Tradjenta 5 mg tablet 5 mg PO DAILY Qty: 30 RF: 0 azithromycin 250 mg tablet 250 mg PO DAILY 4 Days Qty: 4 RF: 0 gabapentin 400 mg capsule See Rx Instructions PO .COMPLEX 30 Days Qty: 120 RF: 3 albuterol sulfate [Ventolin HFA] 90 mcg/actuation HFA aerosol inhaler 2 puff PO QID PRN (Reason: shortness of breath or wheezing) 90 Days Qty: 3 RF: 3 (DME) HIP BRACE (left hip) See Rx Instructions .Route .MEDSUPPLY Qty: 1 RF: 0 (DME) COMPRESSION STOCKINGS medium compression See Rx Instructions .Route .MEDSUPPLY Qty: 3 RF: 0 FreeStyle Lite Strips Strip 1 strip miscellaneous TID Qty: 300 RF: 11 albuterol sulfate 2.5 mg /3 mL (0.083 %) solution for nebulization 2.5 mg continuous nebulization QID PRN (Reason: shortness of breath or wheezing) 30 Days Qty: 480 RF: 5 aspirin 81 mg tablet,delayed release (DR/EC) 81 mg PO DAILY RF: 0 clotrimazole-betamethasone 1-0.05 % cream 1 appl topical BID RF: 0 fluticasone propionate [Flonase Allergy Relief] 50 mcg/actuation spray,suspension 2 spray intranasal DAILY RF: 0 fexofenadine 180 mg tablet 180 mg PO DAILY RF: 0 nystatin 100,000 unit/gram powder 1 appl topical BID RF: 0 atorvastatin [Lipitor] 80 mg tablet 80 mg PO DAILY RF: 0 ipratropium-albuterol 0.5 mg-3 mg(2.5 mg base)/3 mL solution for nebulization inhalation RF: 0 Mucinex DM 30-600 mg tablet extended release 12 hr 1 tab PO Q12H 10 Days Qty: 20 RF: 0 Flovent Diskus 250 mcg/actuation blister with device 1 inh inhalation BID RF: 0 Anoro Ellipta 62.5-25 mcg/actuation blister with device 1 inh inhalation .QD RF: 0 naproxen 500 mg tablet 500 mg PO BID PRN (Reason: pain) 10 Days Qty: 20 RF: 0 hydrochlorothiazide 12.5 mg capsule 25 mg PO DAILY RF: 0 Dexilant 60 mg capsule,biphase delayed releas 60 mg PO DAILY RF: 0 olmesartan 40 mg tablet 40 mg PO DAILY RF: 0 melatonin 5 mg capsule PO RF: 0 amlodipine 10 mg tablet 10 mg PO DAILY Qty: 90 RF: 1 Bevespi Aerosphere 9-4.8 mcg HFA aerosol inhaler 2 puff inhalation Q12H 30 Days Qty: 10.7 RF: 11 azelastine 205.5 mcg (0.15 %) spray,non-aerosol 2 spray intranasal BID 30 Days Qty: 30 RF: 11 cholecalciferol (vitamin D3) 25 mcg (1,000 unit) tablet 75 mcg PO DAILY RF: 0 metoprolol succinate 50 mg tablet extended release 24 hr 75 mg PO DAILY 90 Days Qty: 135 RF: 1 prednisone 10 mg tablet 10 mg PO DAILY PRNRF: 0 Interventions: ED Discharge Assessment Last Done: 12/05/20 02:10 Discharge Date/Time: 12/05/20 02:10
[2020-12-04 23:01] VITALS: BP 161/89; PULSE 97; RESP 20; TEMP 37.3; O2SAT 100; BMI 28.8
--- NOTE | 2020-12-04 23:01 | PC.NURSE ---
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
[2020-12-04 23:23] LABS: MANUAL DIFF FLAG NO
[2020-12-04 23:25] LABS: Basophils Absolute Auto 0.1 X10*3/uL (0.0-0.2); Basophils Percent Auto 0.6 % (0-2); Eosinophils Absolute Auto 0.1 X10*3/uL (0.0-0.4); Eosinophils Percent Auto 1.7 % (0-4); Hematocrit 41.5 % (42-52); Hemoglobin 14.1 g/dl (14.0-18.0); Imm Gran Abs Auto 0.05 X10*3/uL (0.00-0.03); Imm Gran Pct Auto 0.6 % (0.0-0.4); Lymphocytes Absolute Auto 1.3 X10*3/uL (1.2-4.9); Lymphocytes Percent Auto 15.8 % (20-40); Mean Corpuscular Volume 88.3 fL (80-98); Mean Platelet Volume 10.8 fL (9.4-12.4); Monocytes Absolute Auto 0.5 X10*3/uL (0.1-1.2); Monocytes Percent Auto 6.5 % (2-11); Neutrophils Absolute Auto 6.1 X10*3/uL (2.0-8.3); Neutrophils Percent Auto 74.8 % (45-73); Platelet Count 257 X10*3/uL (160-400); Red Cell Distribution Width 12.2 % (11.0-16.0); White Blood Count 8.1 X10*3/uL (4.8-10.8)
[2020-12-04] MEDS: Albuterol Sulfate (0.083%) 2.5 MG/3 ML VIAL.NEB 5 MG INHALE (23:27)
[2020-12-04] MEDS: Albuterol/Iprat 2.5/0.5MG 3 ML AMPUL.NEB INHALE (23:27)
[2020-12-04] MEDS: guaiFEN/Codeine SF 200/20/10ML 10 ML LIQUID PO (23:27)
[2020-12-04 23:28] VITALS: PULSE 88
[2020-12-04] MEDS: methylPREDNISolone Sod Succ 125 MG/2 ML VIAL IVPUSH (23:28)
[2020-12-04 23:57] LABS: Anion Gap 13 (12-20); Blood Urea Nitrogen 15 mg/dL (9-16); Calcium 9.4 mg/dL (8.4-10.2); Carbon Dioxide 24 mmol/L (22-29); Chloride 103 mmol/L (96-108); Creatinine Clr Calc Pharmacy 77.2; Estimated Glomerular Filt Rate > 60; Glucose Random 245 mg/dL (60-115); Potassium 4.2 mmol/L (3.3-5.1); Sodium 136 mmol/L (135-145)
[2020-12-05] VITALS: BP 165/82; PULSE 94; RESP 20; O2SAT 100
[2020-12-05 00:05] LABS: Influenza A PCR NEGATIVE (Negative); Influenza B PCR NEGATIVE (Negative); Resp Syncy Virus RNA Qual PCR NEGATIVE (Negative); SARS COV2 PCR INHOUSE NEGATIVE (Negative)
== END 2020-12-05 02:10 | disposition home or self-care (01) ==
PROVIDERS: Emergency Provider Internal Medicine
DX: J40 Bronchitis, not specified as acute or chronic (principal); R06.02 Shortness of breath; Z79.899 Other long term (current) drug therapy; Z20.822 Contact with and (suspected) exposure to COVID-19
CPT/HCPCS: 0241U; 36415; 71045; 80048; 85025; 93005; 94640; 94644; 96374; 99284; J2930

== ENCOUNTER → 2020-12-09 14:59 | Outpatient (BNVA) | payer OTHER, SELFPAY | PROVIDERS: Referring Provider Internal Medicine; Visit Provider Nurse Practitioner Family | DX: Z01.818 Encounter for other preprocedural examination (principal); I10 Essential (primary) hypertension; I45.10 Unspecified right bundle-branch block; I47.2 Ventricular tachycardia | CPT/HCPCS: 99212 ==

== ENCOUNTER 2020-12-10 06:41 | Day surgery (SDC) | payer OTHER, SELFPAY ==
[2020-12-04 14:49] VITALS: BMI 36.3
[2020-12-07 14:08] VITALS: BMI 37.0
--- NOTE | 2020-12-09 10:52 | P.CONAN_ITS ---
Documented by User: Silvia Lind NP 12/09/20 10:58 HPI - Anesthesia Eval Consult details Narrative: 55yo M for Bronchoscopy Fiberoptic Cardiac clearance appt 12/09/20 @ [address] [facility] [place] ED with bronchitis 12/04/20 - CXR and Covid negative - rx for prednisone and doxy PMFSH Active Problems Active Problems: All Active Problems (Updated 12/07/20 @ 14:07 by Ijeoma Mark RN) Bronchitis (Acute) RBBB (Acute) Heart palpitations (Acute) NSVT (nonsustained ventricular tachycardia) (Acute) Leg pain (Acute) Varicose vein of leg (Acute) Pain of left sacroiliac joint (Acute) Radicular pain of left lower extremity (Acute) Left hip pain (Acute) Hemoptysis (Acute) Major depressive disorder, recurrent (Acute) Anxiety (Acute) Insomnia (Acute) Migraine (Acute) Pure hypercholesterolemia (Acute) Benign essential hypertension (Acute) Type 2 diabetes mellitus with hyperglycemia, without long-term current use of insulin (Acute) Stasis edema of both lower extremities (Acute) Lumbar degenerative disc disease (Acute) Obesity (BMI 30-39.9) (Acute) Chronic rhinitis (Acute) Hiatal hernia (Acute) Erectile dysfunction (Acute) Asthma (Acute) Past Medical History Medical History Anxiety Asthma Benign essential hypertension Bursitis Chronic rhinitis Claustrophobia Erectile dysfunction GERD (gastroesophageal reflux disease) Hemoptysis Hiatal hernia Insomnia Low back pain Lumbar degenerative disc disease Major depressive disorder, recurrent Migraine Obesity (BMI 30-39.9) Pure hypercholesterolemia Stasis edema of both lower extremities Type 2 diabetes mellitus with hyperglycemia, without long-term current use of insulin Family History Family History Father No problems noted. Mother Chronic kidney disease (CKD) Heart attack Other Mental health problem Surgical History Surgical History History of carpal tunnel surgery History of nasal surgery Hx of cardiac catheterization Hx of colonoscopy Social History Social History Housing: House Alcohol intake: never Patient Tobacco Use Status: Never used Tobacco Second Hand Smoke Exposure: Yes Are you DNR?: No Advance Directives: No Advance Directives Information Provided: No Advance Directives on File: No service: No Current occupational status: disabled Meds Allergies Allergy/AdvReac Type Severity Reaction Status Date / Time iodine [Iodine] Allergy Severe THROAT Verified 12/10/20 06:46 SWELLING lisinopril Allergy Severe Rash Verified 12/10/20 06:46 metformin Allergy Severe diarrhea Verified 12/10/20 06:46 meperidine [From Demerol] Allergy Mild RASH Verified 12/10/20 06:46 oxycodone [From Percocet] AdvReac Mild MOUTH Verified 12/10/20 06:46 DRYNESS,RASH Mercury Detox Allergy Severe Close Uncoded 11/30/20 09:18 Throat Shellfish Allergy Severe THROAT Uncoded 12/07/20 14:03 SWELLING Home Medications Medication Instructions Recorded Confirmed Last Taken Type aspirin 81 mg tablet,delayed 81 mg PO DAILY 02/18/20 12/09/20 12/09/20 20:00 History release atorvastatin 80 mg tablet (Lipitor) 80 mg PO DAILY 02/18/20 12/09/20 Unknown History clotrimazole-betamethasone 1 1 appl TOPICAL BID 02/18/20 12/09/20 Unknown History %-0.05 % topical cream fexofenadine 180 mg tablet 180 mg PO DAILY 02/18/20 12/09/20 Unknown History fluticasone propionate 250 1 inh INHALATION BID 02/18/20 12/09/20 Unknown History mcg/actuation blister powder for inhalation (Flovent Diskus) ipratropium 0.5 mg-albuterol 3 mg ml INHALATION 02/18/20 12/09/20 Unknown History (2.5 mg base)/3 mL nebulization soln nystatin 100,000 unit/gram topical 1 appl TOPICAL BID 02/18/20 12/09/20 Unknown History powder melatonin 5 mg capsule mg PO 02/24/20 12/09/20 Unknown History cholecalciferol (vitamin D3) 25 75 mcg PO DAILY 04/29/20 12/09/20 Unknown History mcg (1,000 unit) tablet dexlansoprazole 60 mg 60 mg PO DAILY 10/27/20 12/09/20 Unknown History capsule,biphase delayed release (Dexilant) olmesartan 40 mg tablet 40 mg PO DAILY 10/27/20 12/09/20 Unknown History prednisone 10 mg tablet 10 mg PO DAILY PRN tab 10/27/20 12/09/20 Unknown History linagliptin 5 mg tablet (Tradjenta) 1 tab PO DAILY 12/07/20 12/09/20 Unknown History umeclidinium 62.5 mcg-vilanterol 1 puff PO DAILY 12/07/20 12/09/20 Unknown History 25 mcg/actuation powdr for inhalation (Anoro Ellipta) latanoprost 0.005 % eye drops 1 drp OPHTHALMIC (EYE) DAILY ml 12/09/20 12/09/20 Unknown History Exam Exam Date and Time: December 09, 2020 1052 Height,Weight and Vital Signs: Height 5 ft 8 in Weight 110.677 kg Pertinent Lab Results Pertinent Lab Results: Laboratory Tests 12/04/20 12/04/20 23:18 23:18 WBC 8.1 Hgb 14.1 Hct 41.5 L Plt Count 257 Sodium 136 Potassium 4.2 Chloride 103 Carbon Dioxide 24 BUN 15 Creatinine 1.21 Narrative Narrative: EKG 11/2020 Vent. Rate : 096 BPM ? ? Atrial Rate : 096 BPM ?? P-R Int : 170 ms? QRS Dur : 140 ms ? ? QT Int : 384 ms ? ? ? P-R-T Axes : 023 -45 012 degrees ?? QTc Int : 485 ms ? Normal sinus rhythm Left axis deviation Right bundle branch block Abnormal ECG When compared with ECG of 22-NOV-2020 00:45, No significant change was found ECHO 11/2020 Conclusions: -? 1. Normal LV systolic function with grade 1 diastolic ? dysfunction? 2. Normal cardiac valvular Doppler ? 3. Normal RV systolic pressure ? 4. No pericardial effusion ? Holter 04/2020 Underlying rhythm in sinus; Average ventricular rate 86/min; range 63-107/min; Occasional ventricular ectopy (<1%); One 19 beat run of monomorphic NSVT at 110/min; No sustained arrhythmias; Patient did not report any symptoms in the diary Cardiac cath 03/2018 mild luminal irregularities in the LAD but essentially otherwise unremarkable coronaries. Assessment and Plan Assessment Anesthesia Assessment: Chart Reviewed Documented by User: Ronda Goodson MD 12/10/20 07:35 PMFSH Past Medical History Medical History Anxiety Asthma Benign essential hypertension Bursitis Chronic rhinitis Claustrophobia Erectile dysfunction GERD (gastroesophageal reflux disease) Hemoptysis Hiatal hernia Insomnia Low back pain Lumbar degenerative disc disease Major depressive disorder, recurrent Migraine Obesity (BMI 30-39.9) Pure hypercholesterolemia Stasis edema of both lower extremities Type 2 diabetes mellitus with hyperglycemia, without long-term current use of insulin Family History Family History Father No problems noted. Mother Chronic kidney disease (CKD) Heart attack Other Mental health problem Surgical History Surgical History History of carpal tunnel surgery History of nasal surgery Hx of cardiac catheterization Hx of colonoscopy History of Problems with Anesthesia: No Social History Social History Housing: House Alcohol intake: never Patient Tobacco Use Status: Never used Tobacco Second Hand Smoke Exposure: Yes Are you DNR?: No Advance Directives: No Advance Directives Information Provided: No Advance Directives on File: No service: No Current occupational status: disabled Meds Allergies Allergy/AdvReac Type Severity Reaction Status Date / Time iodine [Iodine] Allergy Severe THROAT Verified 12/10/20 06:46 SWELLING lisinopril Allergy Severe Rash Verified 12/10/20 06:46 metformin Allergy Severe diarrhea Verified 12/10/20 06:46 meperidine [From Demerol] Allergy Mild RASH Verified 12/10/20 06:46 oxycodone [From Percocet] AdvReac Mild MOUTH Verified 12/10/20 06:46 DRYNESS,RASH Mercury Detox Allergy Severe Close Uncoded 11/30/20 09:18 Throat Shellfish Allergy Severe THROAT Uncoded 12/07/20 14:03 SWELLING Home Medications Medication Instructions Recorded Confirmed Last Taken Type aspirin 81 mg tablet,delayed 81 mg PO DAILY 02/18/20 12/09/20 12/09/20 20:00 History release atorvastatin 80 mg tablet (Lipitor) 80 mg PO DAILY 02/18/20 12/09/20 Unknown History clotrimazole-betamethasone 1 1 appl TOPICAL BID 02/18/20 12/09/20 Unknown History %-0.05 % topical cream fexofenadine 180 mg tablet 180 mg PO DAILY 02/18/20 12/09/20 Unknown History fluticasone propionate 250 1 inh INHALATION BID 02/18/20 12/09/20 Unknown History mcg/actuation blister powder for inhalation (Flovent Diskus) ipratropium 0.5 mg-albuterol 3 mg ml INHALATION 02/18/20 12/09/20 Unknown History (2.5 mg base)/3 mL nebulization soln nystatin 100,000 unit/gram topical 1 appl TOPICAL BID 02/18/20 12/09/20 Unknown History powder melatonin 5 mg capsule mg PO 02/24/20 12/09/20 Unknown History cholecalciferol (vitamin D3) 25 75 mcg PO DAILY 04/29/20 12/09/20 Unknown History mcg (1,000 unit) tablet dexlansoprazole 60 mg 60 mg PO DAILY 10/27/20 12/09/20 Unknown History capsule,biphase delayed release (Dexilant) olmesartan 40 mg tablet 40 mg PO DAILY 10/27/20 12/09/20 Unknown History prednisone 10 mg tablet 10 mg PO DAILY PRN tab 10/27/20 12/09/20 Unknown History linagliptin 5 mg tablet (Tradjenta) 1 tab PO DAILY 12/07/20 12/09/20 Unknown History umeclidinium 62.5 mcg-vilanterol 1 puff PO DAILY 12/07/20 12/09/20 Unknown History 25 mcg/actuation powdr for inhalation (Anoro Ellipta) latanoprost 0.005 % eye drops 1 drp OPHTHALMIC (EYE) DAILY ml 12/09/20 12/09/20 Unknown History Exam Airway Mallampati Class: III TM Dist: >3cm Neck ROM: Full Loose/Missing/Broken Teeth: No Heart: RRR Lungs: CTA Assessment and Plan Assessment Anesthesia Assessment: Anesthesia Plan Discussed Final Anesthetic Review History of Problems with Anesthesia: No NPO: Yes ASA Class: II Final Preanesthetic Review: Meds/Allgs Chart Reviewed, Consent Obtained/Reviewed and Anes Risks/Benef Reviewed Patient Risk: Low Procedure Risk: Intermediate Anesthetic Plan Anesthetic Plan: GA Disposition: Standard PACU
[2020-12-10] VITALS (10 sets, daily range): BP systolic 116–151; BP diastolic 75–95; PULSE 73–81; RESP 16–22; TEMP 36.3–36.8; O2SAT 96–99
[2020-12-10 07:06] LABS: Glucose, Whole Blood 208 mg/dL (60-115)
[2020-12-10] MEDS: Lactated Ringers 1,000 ML 50 ML IVCONT (07:11)
--- NOTE | 2020-12-10 08:04 | MHC.SHP ---
Pre-Procedural Eval Section A Date of Service: 12/10/20 The patient is an INPATIENT: No Changes since office visit: Yes Patient answered all questions; No Cold of Flu in the past 2 weeks, No New Medical Problems and No Changes in Medication The History & Physical has been completed within 30 days and I have reviewed it.: Yes Section B Chief Complaint: dyspnea Allergies: Allergies Allergy/AdvReac Type Severity Reaction Status Date / Time iodine [Iodine] Allergy Severe THROAT Verified 12/10/20 06:46 SWELLING lisinopril Allergy Severe Rash Verified 12/10/20 06:46 metformin Allergy Severe diarrhea Verified 12/10/20 06:46 meperidine [From Demerol] Allergy Mild RASH Verified 12/10/20 06:46 oxycodone [From Percocet] AdvReac Mild MOUTH Verified 12/10/20 06:46 DRYNESS,RASH Mercury Detox Allergy Severe Close Uncoded 11/30/20 09:18 Throat Shellfish Allergy Severe THROAT Uncoded 12/07/20 14:03 SWELLING Plan I have reviewed the history and physical and performed a pertinent physical examination on my patient. No changes have occurred unless specified.
[2020-12-10] MEDS: Albuterol Sulfate (0.083%) 2.5 MG/3 ML VIAL.NEB INHALE (08:53)
--- NOTE | 2020-12-10 10:05 | PM.OP ---
Brief Operative Note Date of Service: 12/10/20 Pre-op diagnosis: hemoptysis Post-op diagnosis: other (bronchitis, aspiration, laryngospasms) Procedure: Bronchoscopy with BAL Surgeon: Alexis Oates MD Anesthesia: GLMA Was an Cage/Vault Supervisor used for this Procedure?: No Estimated blood loss (mL): 0 Pathology: none sent Condition: stable Disposition: same day
--- NOTE | 2020-12-10 11:35 | OP_ITS ---
SURGEON: Alexis Oates MD PREOPERATIVE DIAGNOSIS: Hemoptysis. POSTOPERATIVE DIAGNOSIS: PROCEDURE PERFORMED: Bronchoscopy with BAL and washings. ESTIMATED BLOOD LOSS: COMPLICATIONS: ANESTHESIA: LMA. ASSISTANTS: SPECIMENS: ASA CLASSIFICATION: 3. POSTOPERATIVE DIAGNOSES: Bronchitis, aspiration, and laryngospasms. CONSENT: Consent was obtained from the patient. DESCRIPTION OF PROCEDURE: After the patient was adequately sedated, LMA was then placed. The flexible digital bronchoscope was inserted over the LMA to the level of the larynx. The epiglottis appeared to be narrowed and thick in addition to being small and elongated suggesting a difficult airway. In addition to that, the vocal cords were in the abducted position and they were not opening during the respiratory phase. Did have increase soft tissue as well suggesting concerns for obstructive airway disease. After instilling additional lidocaine, the bronchoscope was then passed at the vocal cords to the level of the trachea. Tracheal mucosa appeared normal. The patient did have frothy secretions above the vocal cords and also the same secretions below the vocal cords suggesting aspiration. The patient is actually literally aspirating well during the procedure. The bronchoscopes were further evaluated up to the subsegmental level. The tracheobronchial tree was visualized up to the subsegmental level. The patient did have secretions, frothy due to likely aspiration and also had yellowish secretions in the right upper lobe suggesting of bilious secretions also from aspirations. Those were suctioned. The airways were suctioned. No endobronchial lesions noted. No active bleeding noted. He did have slightly more inflammation in the left lung, left upper and left lower airways suggesting some component of bronchitis. Bronchial washings were collected. The bronchoscope was navigated to the right upper lobe, where BAL was done with 50 mL of normal saline recovering around 30 mL. Specimen sent for cell count differential and also microbiology. The bronchoscope was then removed with total endoscopic time approximately 10 minutes. The patient tolerated the procedure well. The patient however did have some laryngospasm after the procedure after he was in the PACU. He did receive an albuterol treatment along with . He did improve quickly after that. INTERPRETATION: 1. BAL from the right upper lobe. 2. Bronchial washings bilaterally. 3. Laryngospasms post procedure, likely a diagnosis of obstructive airway disease. PHYSICAL THERAPY ATTENDANT: No. Alexis Oates MD MR/FLEX / [id number]
[2020-12-10 12:06] LABS: Lymphocytes Bronchial 2 %; Neutrophils Bronchial 6 %; Other Bronchial 92 %
[2020-12-10 12:07] LABS: RBC Bronchial Washing 102 MM*3; WBC Bronchial Washing 113 MM*3
== END 2020-12-10 10:45 | disposition home or self-care (01) ==
PROVIDERS: Visit Provider Hospitalist
PROC: 0BJ08ZZ Inspection of Tracheobronchial Tree, Via Natural or Artificial Opening Endoscopic (ICD-10-PCS; CPT 31622; principal; 2020-12-10 08:00)
DX: R04.2 Hemoptysis (principal); J40 Bronchitis, not specified as acute or chronic; J38.5 Laryngeal spasm; J45.909 Unspecified asthma, uncomplicated; I10 Essential (primary) hypertension; E11.9 Type 2 diabetes mellitus without complications; Z79.899 Other long term (current) drug therapy
CPT/HCPCS: 31624; 82947; 87071; 87102; 87107; 87116; 87205; 88112; 88305; 89051; J0171; J1100; J2250; J2405; J3010

== ENCOUNTER → 2020-12-23 10:05 | Outpatient (BNVA) | payer OTHER, SELFPAY | PROVIDERS: PCP Internal Medicine; Visit Provider Hospitalist | DX: J45.901 Unspecified asthma with (acute) exacerbation (principal); K44.9 Diaphragmatic hernia without obstruction or gangrene; G47.33 Obstructive sleep apnea (adult) (pediatric); J38.5 Laryngeal spasm | CPT/HCPCS: 99212 ==

== ENCOUNTER 2021-01-26 10:21 | Outpatient (REF) | payer OTHER, SELFPAY ==
[2021-01-26 13:12] LABS: Influenza A PCR NEGATIVE (Negative); Influenza B PCR NEGATIVE (Negative); Resp Syncy Virus RNA Qual PCR NEGATIVE (Negative); SARS COV2 PCR INHOUSE NEGATIVE (Negative)
== END 2021-01-26 10:22 | disposition home or self-care (01) ==
LOC: HO.LAB 10:21
PROVIDERS: Visit Provider Internal Medicine
DX: Z20.822 Contact with and (suspected) exposure to COVID-19 (principal); R43.9 Unspecified disturbances of smell and taste
CPT/HCPCS: 0241U; 36415

== ENCOUNTER 2021-01-26 23:24 | Emergency (ER) | payer OTHER, SELFPAY ==
--- NOTE | ~2021-01-26 | XR_ITS ---
EXAMINATION: XR CHEST CLINICAL INFORMATION: Dyspnea. Cough. COMPARISON: 12/04/2020 TECHNIQUE: 2 views of the chest were obtained. FINDINGS: The lungs are well expanded. There is no focal consolidation, edema, or effusion. No pneumothorax. The cardiomediastinal silhouette is within normal limits. No acute osseous abnormality. Degenerative changes in the spine. XR/XR chest 2V IMPRESSION: Clear lungs.
[2021-01-26 23:34] VITALS: BP 175/104; PULSE 95; RESP 20; TEMP 36.9; O2SAT 94; BMI 36.5
--- NOTE | 2021-01-27 00:22 | ED_ITS ---
HPI - Asthma General Chief Complaint: Upper Respiratory Symptoms Stated Complaint: SOB/Chest tightness Time Seen by Provider: 01/27/21 00:17 Source: patient and old records reviewed Mode of arrival: ambulatory Limitations: no limitations History of Present Illness MD complaint: asthma attack , shortness of breath and wheezing Onset (ago): day(s) (yesterday ) Severity: moderate Context: none known Associated symptoms: dry cough Asthma History: childhood onset Treatments Prior to Arrival: inhaled bronchodilator Related Data Home Medications Medication Instructions Recorded Confirmed aspirin 81 mg tablet,delayed 81 mg PO DAILY 02/18/20 01/26/21 release atorvastatin 80 mg tablet (Lipitor) 80 mg PO DAILY 02/18/20 12/09/20 clotrimazole-betamethasone 1 1 appl TOPICAL BID 02/18/20 01/26/21 %-0.05 % topical cream fexofenadine 180 mg tablet 180 mg PO DAILY 02/18/20 01/26/21 ipratropium 0.5 mg-albuterol 3 mg ml INHALATION 02/18/20 01/26/21 (2.5 mg base)/3 mL nebulization soln melatonin 5 mg capsule mg PO 02/24/20 01/26/21 cholecalciferol (vitamin D3) 25 75 mcg PO DAILY 04/29/20 01/26/21 mcg (1,000 unit) tablet dexlansoprazole 60 mg 60 mg PO DAILY 10/27/20 01/26/21 capsule,biphase delayed release (Dexilant) olmesartan 40 mg tablet 40 mg PO DAILY 10/27/20 01/26/21 umeclidinium 62.5 mcg-vilanterol 1 puff PO DAILY 12/07/20 01/26/21 25 mcg/actuation powdr for inhalation (Anoro Ellipta) latanoprost 0.005 % eye drops 1 drp OPHTHALMIC (EYE) DAILY ml 12/09/20 01/26/21 Previous Rx's Medication Instructions Recorded dextromethorphan-guaifenesin 30 1 tab PO Q12H 10 Days #20 tab 02/18/20 mg-600 mg tablet extended alwdfmi71 hr (Mucinex DM) naproxen 500 mg tablet 500 mg PO BID PRN 10 Days #20 tab 02/19/20 nebulizer accessories #1 ea 03/04/20 lancets 28 gauge (FreeStyle 28 gauge TOPICAL TID #300 ea 03/16/20 Lancets) amlodipine 10 mg tablet 10 mg PO DAILY #90 tab 05/11/20 azelastine 205.5 mcg (0.15 %) 2 spray INTRANASAL BID 30 Days #30 07/16/20 nasal spray ml glycopyrrolate 9 mcg-formoterol 2 puff INHALATION Q12H 30 Days 07/16/20 4.8 mcg HFA aerosol inhaler #10.7 g (Bevespi Aerosphere) ezetimibe 10 mg tablet (Zetia) 10 mg PO DAILY #30 tab 07/29/20 gabapentin 400 mg capsule See Rx Instructions PO .COMPLEX 30 08/12/20 Days #120 cap montelukast 10 mg tablet 10 mg PO QPM #90 tab 10/18/20 roflumilast 250 mcg tablet 250 mcg PO DAILY #30 tab 10/19/20 (Daliresp) COMPRESSION STOCKINGS #3 ea 11/06/20 HIP BRACE (left hip) #1 ea 11/06/20 albuterol sulfate 2.5 mg (3 mL) CONTINUOUS 11/06/20 NEBULIZATION QID PRN 30 Days #480 ml blood sugar diagnostic (FreeStyle 1 strip MISCELLANEOUS TID #300 11/06/20 Lite Strips) strip budesonide 0.5 mg/2 mL suspension 0.5 mg (2 mL) INHALATION BID 30 11/17/20 for nebulization Days #120 ml lorazepam 0.5 mg tablet See Rx Instructions .ROUTE 11/20/20 .COMPLEX PRN 30 Days #60 tab sildenafil 50 mg tablet 50 mg PO DAILY PRN #10 tab 12/08/20 albuterol sulfate 90 mcg/actuation 2 puff PO QID PRN 90 Days #3 units 01/13/21 aerosol inhaler (Ventolin HFA) hydrochlorothiazide 25 mg tablet 25 mg PO DAILY #90 tab 01/13/21 mupirocin 2 % topical ointment 1 appl TOPICAL TID PRN 10 Days #66 01/13/21 g zolpidem 10 mg tablet 10 mg PO BEDTIME PRN 30 Days #30 01/20/21 tab alcohol swabs (BD Alcohol Swabs) 1 pad TOPICAL TID #300 pad 01/21/21 linagliptin 5 mg tablet (Tradjenta) 5 mg PO DAILY #30 tab 01/21/21 azithromycin 250 mg tablet See Rx Instructions PO .COMPLEX #6 01/26/21 (Zithromax) tab glipizide 5 mg tablet, extended 5 mg PO DAILY #90 tab 01/26/21 release 24 hr metoprolol succinate 50 mg 75 mg PO DAILY 90 Days #135 tab 01/26/21 tablet,extended release 24 hr prednisone 20 mg tablet 60 mg PO DAILY 3 Days #9 tab 01/26/21 azithromycin 250 mg tablet See Rx Instructions .ROUTE 01/27/21 .COMPLEX #6 tab codeine 10 mg-guaifenesin 200 mg/5 5 ml PO Q6H PRN #100 ml 01/27/21 mL oral liquid prednisone 20 mg tablet 40 mg PO DAILY 5 Days #10 tab 01/27/21 Allergies Allergy/AdvReac Type Severity Reaction Status Date / Time iodine [Iodine] Allergy Severe THROAT Verified 01/26/21 23:33 SWELLING lisinopril Allergy Severe Rash Verified 01/26/21 23:33 metformin Allergy Severe diarrhea Verified 01/26/21 23:33 meperidine [From Demerol] Allergy Mild RASH Verified 01/26/21 23:33 oxycodone [From Percocet] AdvReac Mild MOUTH Verified 01/26/21 23:33 DRYNESS,RASH [place] Detox Allergy Severe Close Uncoded 01/26/21 10:01 Throat Shellfish Allergy Severe THROAT Uncoded 01/26/21 10:01 SWELLING Review of Systems Review of Systems: Constitutional : No Fever, No Chills ENT/Mouth : No Hoarseness, No sore throat, No Rhinorrhea Eyes: No Redness, No Discharge, No Vision Changes Cardiovascular : No Chest Pain, positive SOB, positive Dyspnea on Exertion, No Edema Respiratory : positive Cough, No Sputum, positive Wheezing, Gastrointestinal : No Nausea, No Vomiting, No Diarrhea, No abdominal Pain Genitourinary : No Dysuria, No Hematuria Musculoskeletal : No joint pain, No Myalgias Skin : No rash Neuro : No Weakness, No Numbness, No Headache Psych : No anxiety, depression Heme/Lymph: No Bruising, No Bleeding Endocrine : No Polyuria, No Polydipsia All other systems reviewed and are negative. [facility] Past Medical History Attestation statement: The following information was validated with the patient. Medical History Anxiety Asthma Asthma-COPD overlap syndrome Benign essential hypertension Bursitis Chronic rhinitis Claustrophobia Erectile dysfunction GERD (gastroesophageal reflux disease) Hemoptysis Hiatal hernia Insomnia Laryngospasm Low back pain Lumbar degenerative disc disease Major depressive disorder, recurrent Migraine Obesity (BMI 30-39.9) JOSÉ (obstructive sleep apnea) Pure hypercholesterolemia Stasis edema of both lower extremities Type 2 diabetes mellitus with hyperglycemia, without long-term current use of insulin Surgical History History of carpal tunnel surgery History of nasal surgery Hx of cardiac catheterization Hx of colonoscopy Family History Family History Father No problems noted. Mother Chronic kidney disease (CKD) Heart attack Other Mental health problem Social History Social History Housing: House Alcohol intake: never Patient Tobacco Use Status: Never used Tobacco Second Hand Smoke Exposure: Yes Advance Directives: No service: No Current occupational status: disabled Physical Exam Vital Signs: Vital Signs: Last Vital Signs Temp 98.2 F 01/27/21 02:47 Pulse 93 01/27/21 02:47 Resp 20 01/27/21 00:49 BP 170/101 H 01/27/21 02:47 Pulse Ox 95 01/27/21 02:47 Body Mass Index 36.5 Appearance: Alert. Oriented X3. No acute distress. Eyes: Pupils equal, round and reactive to light. ENT: Pharynx normal. Neck: Normal inspection. Neck supple. CVS: Normal heart rate and rhythm. Pulses normal. Respiratory: No respiratory distress. Breath sounds diminished with end exp wheezes noted diffusely Abdomen: Soft and nontender. Skin: Skin warm and dry. Normal skin color. Normal skin turgor. Extremities: No lower extremity edema. No calf ttp Neuro: Oriented X 3. No motor deficit. No sensory deficit. Course Course Course Narrative: EKG and trop at baseline > 6 hours of symptoms doubt ACS 95% on RA< clear lungs feels better, stable for DC home MDM - Asthma MDM Narrative Medical decision making narrative: 55 yo male with hx of asthma, JOSÉ, bronchitis comes in with 1+ day of cough and wheezing, no fevers tried his neb machine without relief. Was on steroids approx 2 weeks ago. He denies known triggers. At this time will need labs, CXR, already had negative COVID PCR on 01/26, IV steroids, IV magnesium, 5mg albuterol. Dispo per results and findings. Lab Data Result diagrams: 01/27/21 00:45 01/27/21 00:45 Labs: Lab Results 01/27/21 01/27/21 01/27/21 Range/Units 00:45 00:45 00:45 WBC 7.8 (4.8-10.8) X10*3/uL RBC 4.69 (4.60-5.80) X10*6/uL Hgb 14.1 (14.0-18.0) g/dl Hct 41.9 L (42.0-52.0) % MCV 89.3 (80.0-98.0) fL MCH 30.1 (27.0-33.0) pg MCHC 33.7 (31.0-36.0) g/dl RDW 12.5 (11.0-16.0) % Plt Count 246 (160-400) X10*3/uL MPV 11.1 (9.4-12.4) fL Immature Gran % (Auto) 0.8 H (0.0-0.4) % Neut % (Auto) 68.6 (45-73) % Lymph % (Auto) 18.6 L (20-40) % [place] % (Auto) 10.1 (2-11) % Eos % (Auto) 1.4 (0-4) % Baso % (Auto) 0.5 (0-2) % Lymph # (Auto) 1.5 (1.2-4.9) X10*3/uL [place] # (Auto) 0.8 (0.1-1.2) X10*3/uL Eos # (Auto) 0.1 (0.0-0.4) X10*3/uL Baso # (Auto) 0.0 (0.0-0.2) X10*3/uL Abs Immat Gran (auto) 0.06 H (0.00-0.03) X10*3/uL Absolute Neuts (auto) 5.4 (2.0-8.3) x10*3/uL Absolute Nucleated RBC 0.000 (0.0-0.012) X10*3/uL Nucleated RBC % (auto) 0.0 (0.0-0.2) /100WBC Sodium 137 (135-145) mmol/L Potassium 4.4 (3.3-5.1) mmol/L Chloride 102 (96-108) mmol/L Carbon Dioxide 24 (22-29) mmol/L Anion Gap 15 (12-20) BUN 17 H (9-16) mg/dL Creatinine 1.36 (0.5-1.4) mg/dL Estim Creat Clear Calc 72.5 Estimated GFR 54 Random Glucose 322 H (60-115) mg/dL Calcium 9.4 (8.4-10.2) mg/dL Troponin I High Sens 8.5 (<3.5-35.0) ng/L ECG Data Attestation: I personally reviewed and interpreted this ECG as follows: ECG interpretation date: 01/27/21 ECG interpretation time: 01:08 Interpretation: Rate: 87 Rhythm: NSR [place]: normal Normal P waves. Normal [facility]. RBBB ST T wave : no ROSANNE, nonspecific qTC: normal prior studies: unchanged no acute ischemia The study has been interpreted contemporaneously by me. . Discharge Plan Discharge Clinical Impression: Asthma Qualifiers: Asthma severity: moderate Asthma persistence: persistent Asthma complication type: with acute exacerbation Qualified Code(s): J45.41 - Moderate persistent asthma with (acute) exacerbation Patient Disposition: Home, Self-Care Instructions: Asthma (ED) Additional Instructions: return to ED for any worsening symptoms or concerns Prescriptions: New azithromycin 250 mg tablet See Rx Instructions .ROUTE .COMPLEX Qty: 6 RF: 0 prednisone 20 mg tablet 40 mg PO DAILY 5 Days Qty: 10 RF: 0 codeine-guaifenesin 10-200 mg/5 mL liquid 5 ml PO Q6H PRN (Reason: cough) Qty: 100 RF: 0 No Action (DME) nebulizer accessories Misc See Rx Instructions .ROUTE .MEDSUPPLY Qty: 1 RF: 11 lancets [FreeStyle Lancets] 28 gauge misc 28 gauge topical TID Qty: 300 RF: 0 ezetimibe [Zetia] 10 mg tablet 10 mg PO DAILY Qty: 30 RF: 5 montelukast 10 mg tablet 10 mg PO QPM Qty: 90 RF: 0 Daliresp 250 mcg tablet 250 mcg PO DAILY Qty: 30 RF: 3 budesonide 0.5 mg/2 mL suspension for nebulization 0.5 mg inhalation BID 30 Days Qty: 120 RF: 6 lorazepam 0.5 mg tablet See Rx Instructions .ROUTE .COMPLEX PRN (Reason: anxiety) 30 Days Qty: 60 RF: 0 sildenafil 50 mg tablet 50 mg PO DAILY PRN (Reason: sexual activity) Qty: 10 RF: 1 albuterol sulfate [Ventolin HFA] 90 mcg/actuation HFA aerosol inhaler 2 puff PO QID PRN (Reason: shortness of breath or wheezing) 90 Days Qty: 3 RF: 3 mupirocin 2 % ointment 1 appl topical TID PRN (Reason: infection) 10 Days Qty: 66 RF: 2 hydrochlorothiazide 25 mg tablet 25 mg PO DAILY Qty: 90 RF: 1 zolpidem 10 mg tablet 10 mg PO BEDTIME PRN (Reason: insomnia) 30 Days Qty: 30 RF: 0 alcohol swabs [BD Alcohol Swabs] Pads, Medicated 1 pad topical TID Qty: 300 RF: 0 Tradjenta 5 mg tablet 5 mg PO DAILY Qty: 30 RF: 0 metoprolol succinate 50 mg tablet extended release 24 hr 75 mg PO DAILY 90 Days Qty: 135 RF: 3 Anoro Ellipta 62.5-25 mcg/actuation blister with device 1 puff PO DAILY RF: 0 gabapentin 400 mg capsule See Rx Instructions PO .COMPLEX 30 Days Qty: 120 RF: 3 (DME) HIP BRACE (left hip) See Rx Instructions .Route .MEDSUPPLY Qty: 1 RF: 0 (DME) COMPRESSION STOCKINGS medium compression See Rx Instructions .Route .MEDSUPPLY Qty: 3 RF: 0 FreeStyle Lite Strips Strip 1 strip miscellaneous TID Qty: 300 RF: 11 albuterol sulfate 2.5 mg /3 mL (0.083 %) solution for nebulization 2.5 mg continuous nebulization QID PRN (Reason: shortness of breath or wheezing) 30 Days Qty: 480 RF: 5 aspirin 81 mg tablet,delayed release (DR/EC) 81 mg PO DAILY RF: 0 clotrimazole-betamethasone 1-0.05 % cream 1 appl topical BID RF: 0 fexofenadine 180 mg tablet 180 mg PO DAILY RF: 0 atorvastatin [Lipitor] 80 mg tablet 80 mg PO DAILY RF: 0 ipratropium-albuterol 0.5 mg-3 mg(2.5 mg base)/3 mL solution for nebulization inhalation RF: 0 Mucinex DM 30-600 mg tablet extended release 12 hr 1 tab PO Q12H 10 Days Qty: 20 RF: 0 naproxen 500 mg tablet 500 mg PO BID PRN (Reason: pain) 10 Days Qty: 20 RF: 0 Dexilant 60 mg capsule,biphase delayed releas 60 mg PO DAILY RF: 0 olmesartan 40 mg tablet 40 mg PO DAILY RF: 0 glipizide 5 mg tablet extended release 24hr 5 mg PO DAILY Qty: 90 RF: 1 prednisone 20 mg tablet 60 mg PO DAILY 3 Days Qty: 9 RF: 0 azithromycin [Zithromax] 250 mg tablet See Rx Instructions PO .COMPLEX Qty: 6 RF: 0 melatonin 5 mg capsule PO RF: 0 amlodipine 10 mg tablet 10 mg PO DAILY Qty: 90 RF: 1 Bevespi Aerosphere 9-4.8 mcg HFA aerosol inhaler 2 puff inhalation Q12H 30 Days Qty: 10.7 RF: 11 azelastine 205.5 mcg (0.15 %) spray,non-aerosol 2 spray intranasal BID 30 Days Qty: 30 RF: 11 cholecalciferol (vitamin D3) 25 mcg (1,000 unit) tablet 75 mcg PO DAILY RF: 0 latanoprost 0.005 % drops 1 drp ophthalmic (eye) DAILY RF: 0 Referrals: Oliverio Emerson MD [Primary Care Provider] - 2 days (if not better) Stand Alone Forms: Work/School Release
--- NOTE | 2021-01-27 00:38 | ECG_ITS ---
Test Reason : SOB Blood Pressure : / mmHG Vent. Rate : 087 BPM Atrial Rate : 087 BPM P-R Int : 184 ms QRS Dur : 146 ms QT Int : 388 ms P-R-T Axes : 041 100 038 degrees QTc Int : 466 ms Normal sinus rhythm Right bundle branch block Abnormal ECG When compared with ECG of 04-DEC-2020 22:52, QRS axis Shifted right Referred By: Aurora Caceres Electronically Signed By:DARIANA WREN MD
[2021-01-27 00:49] VITALS: BP 153/91; PULSE 90; RESP 20; TEMP 36.8; O2SAT 96
[2021-01-27 00:50] VITALS: O2SAT 96
[2021-01-27] MEDS: methylPREDNISolone Sod Succ 125 MG/2 ML VIAL IVPUSH (00:51)
[2021-01-27] MEDS: Magnesium Sulfate/H2O 2 GM/50 ML PIGGYBACK IV (00:51)
[2021-01-27 00:52] LABS: MANUAL DIFF FLAG NO
[2021-01-27 00:53] LABS: Basophils Percent Auto 0.5 % (0-2); Eosinophils Absolute Auto 0.1 X10*3/uL (0.0-0.4); Eosinophils Percent Auto 1.4 % (0-4); Hematocrit 41.9 % (42.0-52.0); Hemoglobin 14.1 g/dl (14.0-18.0); Imm Gran Abs Auto 0.06 X10*3/uL (0.00-0.03); Imm Gran Pct Auto 0.8 % (0.0-0.4); Lymphocytes Absolute Auto 1.5 X10*3/uL (1.2-4.9); Lymphocytes Percent Auto 18.6 % (20-40); Mean Corpuscular HGB Conc 33.7 g/dl (31.0-36.0); Mean Corpuscular Hemoglobin 30.1 pg (27.0-33.0); Mean Corpuscular Volume 89.3 fL (80.0-98.0); Mean Platelet Volume 11.1 fL (9.4-12.4); Monocytes Absolute Auto 0.8 X10*3/uL (0.1-1.2); Monocytes Percent Auto 10.1 % (2-11); Neutrophils Absolute Auto 5.4 x10*3/uL (2.0-8.3); Neutrophils Percent Auto 68.6 % (45-73); Platelet Count 246 X10*3/uL (160-400); Red Blood Count 4.69 X10*6/uL (4.60-5.80); Red Cell Distribution Width 12.5 % (11.0-16.0); White Blood Count 7.8 X10*3/uL (4.8-10.8)
[2021-01-27 01:09] LABS: Anion Gap 15 (12-20); Blood Urea Nitrogen 17 mg/dL (9-16); Calcium 9.4 mg/dL (8.4-10.2); Carbon Dioxide 24 mmol/L (22-29); Chloride 102 mmol/L (96-108); Creatinine Clr Calc Pharmacy 72.5; Estimated Glomerular Filt Rate 54; Glucose Random 322 mg/dL (60-115); Potassium 4.4 mmol/L (3.3-5.1); Sodium 137 mmol/L (135-145)
[2021-01-27 01:17] LABS: Troponin-I High Sensitivity 8.5 ng/L (<3.5-35.0)
[2021-01-27] MEDS: Albuterol Sulfate (0.083%) 2.5 MG/3 ML VIAL.NEB 5 MG INHALE (01:28)
[2021-01-27 01:30] VITALS: PULSE 90; O2SAT 98
[2021-01-27 02:47] VITALS: BP 170/101; PULSE 93; TEMP 36.8; O2SAT 95
[2021-01-27] MEDS: guaiFEN/Codeine SF 200/20/10ML 10 ML LIQUID 5 ML PO (03:23)
--- NOTE | 2021-01-27 03:28 | PC.NURSE ---
Pt discharged per ED team, PIV removed, dc instructions and return precautions given, Rxs and follow up instructions reviewed, pt ambulatory w/ steady gait out of dept
== END 2021-01-27 03:28 | disposition home or self-care (01) ==
PROVIDERS: Emergency Provider Emergency Medicine; PCP Internal Medicine
DX: J45.41 Moderate persistent asthma with (acute) exacerbation (principal); I10 Essential (primary) hypertension; E11.9 Type 2 diabetes mellitus without complications
CPT/HCPCS: 36415; 71046; 80048; 84484; 85025; 93005; 94640; 96365; 96366; 96375; 99284; J2930; J3475

== ENCOUNTER 2021-02-02 01:35 | Emergency (ER) | payer OTHER, SELFPAY ==
[2021-02-02 01:51] VITALS: BP 171/108; PULSE 91; RESP 16; O2SAT 97; BMI 36.5
--- NOTE | 2021-02-02 02:47 | ECG_ITS ---
Test Reason : chest pressure Blood Pressure : / mmHG Vent. Rate : 081 BPM Atrial Rate : 081 BPM P-R Int : 186 ms QRS Dur : 142 ms QT Int : 390 ms P-R-T Axes : 011 -29 008 degrees QTc Int : 453 ms Normal sinus rhythm Right bundle branch block Abnormal ECG When compared with ECG of 27-JAN-2021 01:04, QRS axis Shifted left Referred By: Ronda Griffiths Electronically Signed By:DARIANA WREN MD
--- NOTE | 2021-02-02 03:09 | ED_ITS ---
HPI - General Adult General Chief complaint: Upper Respiratory Symptoms Stated complaint: Congestion, flu like symptoms Time Seen by Provider: 02/02/21 02:46 Source: patient Mode of arrival: ambulatory History of Present Illness HPI narrative: 55-year-old male with history of asthma who comes in with persistent chest congestion and complaints of despite being treated for bronchitis with azithromycin and steroids he feels like he is not getting better. He denies receiving COVID-19 vaccinations and is also complaining of pain and burning on urination. Otherwise, he denies any sore throat, fevers, chills, GI symptoms. Related Data Home Medications Medication Instructions Recorded Confirmed aspirin 81 mg tablet,delayed 81 mg PO DAILY 02/18/20 01/26/21 release atorvastatin 80 mg tablet (Lipitor) 80 mg PO DAILY 02/18/20 12/09/20 clotrimazole-betamethasone 1 1 appl TOPICAL BID 02/18/20 01/26/21 %-0.05 % topical cream fexofenadine 180 mg tablet 180 mg PO DAILY 02/18/20 01/26/21 ipratropium 0.5 mg-albuterol 3 mg ml INHALATION 02/18/20 01/26/21 (2.5 mg base)/3 mL nebulization soln melatonin 5 mg capsule mg PO 02/24/20 01/26/21 cholecalciferol (vitamin D3) 25 75 mcg PO DAILY 04/29/20 01/26/21 mcg (1,000 unit) tablet dexlansoprazole 60 mg 60 mg PO DAILY 10/27/20 01/26/21 capsule,biphase delayed release (Dexilant) olmesartan 40 mg tablet 40 mg PO DAILY 10/27/20 01/26/21 umeclidinium 62.5 mcg-vilanterol 1 puff PO DAILY 12/07/20 01/26/21 25 mcg/actuation powdr for inhalation (Anoro Ellipta) latanoprost 0.005 % eye drops 1 drp OPHTHALMIC (EYE) DAILY ml 12/09/20 01/26/21 Previous Rx's Medication Instructions Recorded dextromethorphan-guaifenesin 30 1 tab PO Q12H 10 Days #20 tab 02/18/20 mg-600 mg tablet extended hr (Mucinex DM) naproxen 500 mg tablet 500 mg PO BID PRN 10 Days #20 tab 02/19/20 nebulizer accessories #1 ea 03/04/20 lancets 28 gauge (FreeStyle 28 gauge TOPICAL TID #300 ea 03/16/20 Lancets) amlodipine 10 mg tablet 10 mg PO DAILY #90 tab 05/11/20 azelastine 205.5 mcg (0.15 %) 2 spray INTRANASAL BID 30 Days #30 07/16/20 nasal spray ml glycopyrrolate 9 mcg-formoterol 2 puff INHALATION Q12H 30 Days 07/16/20 4.8 mcg HFA aerosol inhaler #10.7 g (Bevespi Aerosphere) ezetimibe 10 mg tablet (Zetia) 10 mg PO DAILY #30 tab 07/29/20 gabapentin 400 mg capsule See Rx Instructions PO .COMPLEX 30 08/12/20 Days #120 cap montelukast 10 mg tablet 10 mg PO QPM #90 tab 10/18/20 roflumilast 250 mcg tablet 250 mcg PO DAILY #30 tab 10/19/20 (Daliresp) COMPRESSION STOCKINGS #3 ea 11/06/20 HIP BRACE (left hip) #1 ea 11/06/20 albuterol sulfate 2.5 mg (3 mL) CONTINUOUS 11/06/20 NEBULIZATION QID PRN 30 Days #480 ml blood sugar diagnostic (FreeStyle 1 strip MISCELLANEOUS TID #300 11/06/20 Lite Strips) strip budesonide 0.5 mg/2 mL suspension 0.5 mg (2 mL) INHALATION BID 30 11/17/20 for nebulization Days #120 ml lorazepam 0.5 mg tablet See Rx Instructions .ROUTE 11/20/20 .COMPLEX PRN 30 Days #60 tab sildenafil 50 mg tablet 50 mg PO DAILY PRN #10 tab 12/08/20 albuterol sulfate 90 mcg/actuation 2 puff PO QID PRN 90 Days #3 units 01/13/21 aerosol inhaler (Ventolin HFA) hydrochlorothiazide 25 mg tablet 25 mg PO DAILY #90 tab 01/13/21 mupirocin 2 % topical ointment 1 appl TOPICAL TID PRN 10 Days #66 01/13/21 g zolpidem 10 mg tablet 10 mg PO BEDTIME PRN 30 Days #30 01/20/21 tab alcohol swabs (BD Alcohol Swabs) 1 pad TOPICAL TID #300 pad 01/21/21 linagliptin 5 mg tablet (Tradjenta) 5 mg PO DAILY #30 tab 01/21/21 azithromycin 250 mg tablet See Rx Instructions PO .COMPLEX #6 01/26/21 (Zithromax) tab glipizide 5 mg tablet, extended 5 mg PO DAILY #90 tab 01/26/21 release 24 hr metoprolol succinate 50 mg 75 mg PO DAILY 90 Days #135 tab 01/26/21 tablet,extended release 24 hr prednisone 20 mg tablet 60 mg PO DAILY 3 Days #9 tab 01/26/21 azithromycin 250 mg tablet See Rx Instructions .ROUTE 01/27/21 .COMPLEX #6 tab codeine 10 mg-guaifenesin 200 mg/5 5 ml PO Q6H PRN #100 ml 01/27/21 mL oral liquid fluticasone propionate 110 2 puff INHALATION BID 30 Days #12 g 01/27/21 mcg/actuation HFA aerosol inhaler (Flovent HFA) prednisone 20 mg tablet 40 mg PO DAILY 5 Days #10 tab 01/27/21 prednisone 20 mg tablet 40 mg PO DAILY 4 Days #8 tab 02/02/21 Allergies Allergy/AdvReac Type Severity Reaction Status Date / Time iodine [Iodine] Allergy Severe THROAT Verified 01/26/21 23:33 SWELLING lisinopril Allergy Severe Rash Verified 01/26/21 23:33 metformin Allergy Severe diarrhea Verified 01/26/21 23:33 meperidine [From Demerol] Allergy Mild RASH Verified 01/26/21 23:33 oxycodone [From Percocet] AdvReac Mild MOUTH Verified 01/26/21 23:33 DRYNESS,RASH Mercury Detox Allergy Severe Close Uncoded 01/26/21 10:01 Throat Shellfish Allergy Severe THROAT Uncoded 01/26/21 10:01 SWELLING Review of Systems Review of Systems: Pertinent positives and negatives as stated in HPI and 10 point review of system than is otherwise negative PMFSH Past Medical History Source: nursing notes reviewed Medical History Anxiety Asthma Asthma-COPD overlap syndrome Benign essential hypertension Bursitis Chronic rhinitis Claustrophobia Erectile dysfunction GERD (gastroesophageal reflux disease) Hemoptysis Hiatal hernia Insomnia Laryngospasm Low back pain Lumbar degenerative disc disease Major depressive disorder, recurrent Migraine Obesity (BMI 30-39.9) JOSÉ (obstructive sleep apnea) Pure hypercholesterolemia Stasis edema of both lower extremities Type 2 diabetes mellitus with hyperglycemia, without long-term current use of insulin Surgical History History of carpal tunnel surgery History of nasal surgery Hx of cardiac catheterization Hx of colonoscopy Family History Family History Father No problems noted. Mother Chronic kidney disease (CKD) Heart attack Other Mental health problem Social History Social History Housing: House Alcohol intake: never Patient Tobacco Use Status: Never used Tobacco Second Hand Smoke Exposure: Yes Advance Directives: No Advance Directives Information Provided: Yes service: No Current occupational status: disabled Physical Exam Vital Signs: Vital Signs: Last Vital Signs Pulse 86 02/02/21 04:11 Resp 18 02/02/21 04:10 BP 168/102 H 02/02/21 04:11 Pulse Ox 95 02/02/21 04:10 Body Mass Index 36.5 VITAL SIGNS: Reviewed. GENERAL: Well developed, well nourished, in no acute distress. HEAD: Normocephalic/atraumatic EYES: PERRLA, EOMI EARS: Ext canals without abnormality, TMs non-bulging and non-erythematous NOSE: Nares patent bilateral OROPHARYNX: no oral lesions noted, posterior pharynx clear and non-erythematous without noted tonsillar enlargement/erythema/exudates NECK: Supple, no adenopathy LUNGS: Good inspiratory effort with mild expiratory wheeze and no rhonchi or rales. No observed increase in work of breathing. SpO2-95 CARDIOVASCULAR: Regular rate and rhythm without noted murmurs, no JVD or lower extremity edema. ABDOMEN: Soft, non-tender, non-distended with bowel sounds. NEUROLOGIC: Alert and oriented x 4. Course Course Course Narrative: This is a 55-year-old male with history and clinical presentation suggestive possible mild asthma, bronchitis, COVID-19. Review of all investigations otherwise negative for acute findings. Patient was given 4 puffs on albuterol and provided with initial steroids here in the emerg ency room and instructed to follow-up with his primary care provider. Medical Decision Making Lab Data Labs: Lab Results 02/02/21 02/02/21 Range/Units 03:05 03:05 Urine Color YELLOW Urine Appearance CLEAR Urine pH 6.0 (5.0-8.0) Ur Specific [place] 1.025 (1.005-1.025) Urine Protein NEG (NEG-TRACE) MG/DL Urine Glucose (UA) >=1000 H (NEG) MG/DL Urine Ketones NEG (NEG) MG/DL Urine Blood NEG (NEG) Urine Nitrite NEG (NEG) Ur Leukocyte Esterase NEG (NEG) Urine RBC 0-2 (0) /HPF Urine WBC 0-2 (0-4) /HPF Ur Squamous Epith Cells TRACE /LPF Urine Bacteria TRACE /LPF Influenza Type A (PCR) NEGATIVE (Negative) Influenza Type B (PCR) NEGATIVE (Negative) RSV RNA Qual (PCR) NEGATIVE (Negative) SARS-CoV-2 RNA (RT-PCR) NEGATIVE (Negative) ECG Data Attestation: I personally reviewed and interpreted this ECG as follows: Prior ECG tracings: available for review (01/27/2021 ) Interpretation: Normal sinus rhythm, HR-81, no STEMI, RBBB, QRS/QTC are within normal limits. Discharge Plan Discharge Clinical Impression: Asthma Patient Disposition: Home, Self-Care Instructions: Asthma (ED) Additional Instructions: Follow-up with primary care provider by calling the office in the morning. Return to the ER for acute worsening of symptoms. Prescriptions: New prednisone 20 mg tablet 40 mg PO DAILY 4 Days Qty: 8 RF: 0 No Action (DME) nebulizer accessories Misc See Rx Instructions .ROUTE .MEDSUPPLY Qty: 1 RF: 11 lancets [FreeStyle Lancets] 28 gauge misc 28 gauge topical TID Qty: 300 RF: 0 ezetimibe [Zetia] 10 mg tablet 10 mg PO DAILY Qty: 30 RF: 5 montelukast 10 mg tablet 10 mg PO QPM Qty: 90 RF: 0 Daliresp 250 mcg tablet 250 mcg PO DAILY Qty: 30 RF: 3 budesonide 0.5 mg/2 mL suspension for nebulization 0.5 mg inhalation BID 30 Days Qty: 120 RF: 6 lorazepam 0.5 mg tablet See Rx Instructions .ROUTE .COMPLEX PRN (Reason: anxiety) 30 Days Qty: 60 RF: 0 sildenafil 50 mg tablet 50 mg PO DAILY PRN (Reason: sexual activity) Qty: 10 RF: 1 albuterol sulfate [Ventolin HFA] 90 mcg/actuation HFA aerosol inhaler 2 puff PO QID PRN (Reason: shortness of breath or wheezing) 90 Days Qty: 3 RF: 3 mupirocin 2 % ointment 1 appl topical TID PRN (Reason: infection) 10 Days Qty: 66 RF: 2 hydrochlorothiazide 25 mg tablet 25 mg PO DAILY Qty: 90 RF: 1 zolpidem 10 mg tablet 10 mg PO BEDTIME PRN (Reason: insomnia) 30 Days Qty: 30 RF: 0 alcohol swabs [BD Alcohol Swabs] Pads, Medicated 1 pad topical TID Qty: 300 RF: 0 Tradjenta 5 mg tablet 5 mg PO DAILY Qty: 30 RF: 0 metoprolol succinate 50 mg tablet extended release 24 hr 75 mg PO DAILY 90 Days Qty: 135 RF: 3 Flovent HFA 110 mcg/actuation HFA aerosol inhaler 2 puff inhalation BID 30 Days Qty: 12 RF: 11 Anoro Ellipta 62.5-25 mcg/actuation blister with device 1 puff PO DAILY RF: 0 azithromycin 250 mg tablet See Rx Instructions .ROUTE .COMPLEX Qty: 6 RF: 0 prednisone 20 mg tablet 40 mg PO DAILY 5 Days Qty: 10 RF: 0 codeine-guaifenesin 10-200 mg/5 mL liquid 5 ml PO Q6H PRN (Reason: cough) Qty: 100 RF: 0 gabapentin 400 mg capsule See Rx Instructions PO .COMPLEX 30 Days Qty: 120 RF: 3 (DME) HIP BRACE (left hip) See Rx Instructions .Route .MEDSUPPLY Qty: 1 RF: 0 (DME) COMPRESSION STOCKINGS medium compression See Rx Instructions .Route .MEDSUPPLY Qty: 3 RF: 0 FreeStyle Lite Strips Strip 1 strip miscellaneous TID Qty: 300 RF: 11 albuterol sulfate 2.5 mg /3 mL (0.083 %) solution for nebulization 2.5 mg continuous nebulization QID PRN (Reason: shortness of breath or wheezing) 30 Days Qty: 480 RF: 5 aspirin 81 mg tablet,delayed release (DR/EC) 81 mg PO DAILY RF: 0 clotrimazole-betamethasone 1-0.05 % cream 1 appl topical BID RF: 0 fexofenadine 180 mg tablet 180 mg PO DAILY RF: 0 atorvastatin [Lipitor] 80 mg tablet 80 mg PO DAILY RF: 0 ipratropium-albuterol 0.5 mg-3 mg(2.5 mg base)/3 mL solution for nebulization inhalation RF: 0 Mucinex DM 30-600 mg tablet extended release 12 hr 1 tab PO Q12H 10 Days Qty: 20 RF: 0 naproxen 500 mg tablet 500 mg PO BID PRN (Reason: pain) 10 Days Qty: 20 RF: 0 Dexilant 60 mg capsule,biphase delayed releas 60 mg PO DAILY RF: 0 olmesartan 40 mg tablet 40 mg PO DAILY RF: 0 glipizide 5 mg tablet extended release 24hr 5 mg PO DAILY Qty: 90 RF: 1 prednisone 20 mg tablet 60 mg PO DAILY 3 Days Qty: 9 RF: 0 azithromycin [Zithromax] 250 mg tablet See Rx Instructions PO .COMPLEX Qty: 6 RF: 0 melatonin 5 mg capsule PO RF: 0 amlodipine 10 mg tablet 10 mg PO DAILY Qty: 90 RF: 1 Bevespi Aerosphere 9-4.8 mcg HFA aerosol inhaler 2 puff inhalation Q12H 30 Days Qty: 10.7 RF: 11 azelastine 205.5 mcg (0.15 %) spray,non-aerosol 2 spray intranasal BID 30 Days Qty: 30 RF: 11 cholecalciferol (vitamin D3) 25 mcg (1,000 unit) tablet 75 mcg PO DAILY RF: 0 latanoprost 0.005 % drops 1 drp ophthalmic (eye) DAILY RF: 0 Referrals: Oliverio Emerson MD [Primary Care Provider] - 2 days
[2021-02-02 03:17] LABS: Appearance Urine CLEAR; Color Urine YELLOW; Glucose Urine UA >=1000 MG/DL (NEG); Leukocyte Esterase Urine NEG (NEG); Nitrite Urine NEG (NEG); Specific Gravity - Urine 1.025 (1.005-1.025); Urine Blood NEG (NEG); Urine Ketones NEG (NEG); Urine Protein NEG (NEG-TRACE)
[2021-02-02 03:29] LABS: Bacteria Urine TRACE /LPF; RBC Urine 0-2 /HPF (0); Squamous Epithelial Cell Urine TRACE /LPF; WBC Urine 0-2 /HPF (0-4)
[2021-02-02 04:02] LABS: Influenza A PCR NEGATIVE (Negative); Influenza B PCR NEGATIVE (Negative); Resp Syncy Virus RNA Qual PCR NEGATIVE (Negative); SARS COV2 PCR INHOUSE NEGATIVE (Negative)
[2021-02-02 04:10] VITALS: BP 168/102; PULSE 86; RESP 18; O2SAT 95
[2021-02-02 04:11] VITALS: BP 168/102; PULSE 86
[2021-02-02] MEDS: amLODIPine Besylate 5 MG TABLET PO (04:11)
[2021-02-02] MEDS: Albuterol Sulfate 90 MCG 8 GM INHALER 4 PUFF INHALE (04:29)
[2021-02-02] MEDS: predniSONE 20 MG TABLET 40 MG PO (04:29)
[2021-02-02 05:22] VITALS: BP 160/100; PULSE 86; RESP 18; TEMP 37.1; O2SAT 96
== END 2021-02-02 05:26 | disposition home or self-care (01) ==
PROVIDERS: Emergency Provider Student in an Organized Health Care Education/Training Program; PCP Internal Medicine
DX: J45.909 Unspecified asthma, uncomplicated (principal); Z20.822 Contact with and (suspected) exposure to COVID-19; Z79.899 Other long term (current) drug therapy
CPT/HCPCS: 0241U; 36415; 81001; 93005; 99284

== ENCOUNTER → 2021-02-25 10:10 | Outpatient (BNVA) | payer OTHER, SELFPAY | PROVIDERS: PCP Internal Medicine; Visit Provider Hospitalist | DX: G47.33 Obstructive sleep apnea (adult) (pediatric) (principal); J45.41 Moderate persistent asthma with (acute) exacerbation; J38.5 Laryngeal spasm; K44.9 Diaphragmatic hernia without obstruction or gangrene | CPT/HCPCS: 99212 ==

== ENCOUNTER → 2021-03-26 09:30 | Outpatient (BNVA) | payer OTHER, SELFPAY | PROVIDERS: PCP Internal Medicine; Referring Provider Internal Medicine; Visit Provider Surgery | DX: M62.08 Separation of muscle (nontraumatic), other site (principal) | CPT/HCPCS: 99202 ==

== ENCOUNTER 2021-04-07 12:16 | Outpatient (REF) | payer OTHER, SELFPAY ==
[2021-04-07 12:51] LABS: COVID-19 Test Negative (Negative); IDNOW Serial# 16C4AD1C
== END 2021-04-07 12:17 | disposition home or self-care (01) ==
LOC: HO.LAB 12:16
PROVIDERS: Visit Provider Internal Medicine
DX: Z20.822 Contact with and (suspected) exposure to COVID-19 (principal)
CPT/HCPCS: 87635; C9803

== ENCOUNTER → 2021-04-29 09:44 | Outpatient (BNVA) | payer OTHER, SELFPAY | PROVIDERS: PCP Internal Medicine; Visit Provider Hospitalist | DX: G47.33 Obstructive sleep apnea (adult) (pediatric) (principal); J38.5 Laryngeal spasm; J45.41 Moderate persistent asthma with (acute) exacerbation; J44.9 Chronic obstructive pulmonary disease, unspecified; K44.9 Diaphragmatic hernia without obstruction or gangrene | CPT/HCPCS: 94618; 99212 ==

== ENCOUNTER 2021-05-28 10:46 | Outpatient (REF) | payer OTHER, SELFPAY ==
--- NOTE | 2021-05-28 14:58 | PFT_ITS ---
Forced vital capacity 61%, FEV1 50%, FEV1/FVC ratio is 63, QLH28-37 32%, and MVV 43%. Post bronchodilator therapy, there is a significant response and marked increase in FVC, FEV1, and RDC14-94. Total lung capacity 92%. Residual volume 155% indicating air trapping. Diffusion capacity is 99%. CONCLUSION: Severe obstructive airway disorder. Significant response to bronchodilator therapy. These findings are consistent with asthma/COPD, overlap syndrome. Clinical correlation is recommended. MD NATAN Pastor/FLEX / [phone]
== END 2021-05-28 10:47 | disposition home or self-care (01) ==
LOC: HO.RESP 10:46
PROVIDERS: PCP Internal Medicine; Visit Provider Hospitalist
DX: R06.00 Dyspnea, unspecified (principal); J44.9 Chronic obstructive pulmonary disease, unspecified
CPT/HCPCS: 94060; 94727; 94729

== ENCOUNTER → 2021-06-10 09:14 | Outpatient (BNVA) | payer OTHER, SELFPAY | PROVIDERS: PCP Internal Medicine; Visit Provider Hospitalist | DX: J38.5 Laryngeal spasm (principal); K44.9 Diaphragmatic hernia without obstruction or gangrene; J45.41 Moderate persistent asthma with (acute) exacerbation; G47.33 Obstructive sleep apnea (adult) (pediatric); J44.9 Chronic obstructive pulmonary disease, unspecified | CPT/HCPCS: 99212 ==

== ENCOUNTER 2021-07-09 00:50 | Emergency (ER) | payer OTHER, SELFPAY ==
--- NOTE | ~2021-07-09 | XR_ITS ---
EXAMINATION: XR CHEST CLINICAL INFORMATION: Shortness of breath COMPARISON: 01/26/2021 TECHNIQUE: Frontal view of the chest was obtained. FINDINGS: Cardiac leads overlie the chest. The lungs are well expanded. There is no focal consolidation, edema, or effusion. No pneumothorax. The cardiomediastinal silhouette is within normal limits. No acute osseous abnormality. XR/XR chest 1V IMPRESSION: No acute pulmonary finding.
[2021-07-09 01:09] VITALS: BP 195/100; PULSE 96; RESP 18; TEMP 37.1; O2SAT 97; BMI 35.9
--- NOTE | 2021-07-09 01:20 | ED.GENADULT ---
HPI - General Adult General Chief complaint: General Medical Stated complaint: difficulty breathing, asthma Time Seen by Provider: 07/09/21 00:54 Source: patient Mode of arrival: ambulatory Limitations: no limitations History of Present Illness HPI narrative: Patient comes to the emergency room complaining of shortness of breath, chest tightness. Patient has history of COPD. Patient states that his tested positive for COVID-19 yesterday. Patient has been using his inhaler and giving himself nebulization treatments. Related Data Home Medications Medication Instructions Recorded Confirmed aspirin 81 mg tablet,delayed 81 mg PO DAILY 02/18/20 06/10/21 release atorvastatin 80 mg tablet (Lipitor) 80 mg PO DAILY 02/18/20 06/10/21 clotrimazole-betamethasone 1 1 appl TOPICAL BID 02/18/20 06/10/21 %-0.05 % topical cream fexofenadine 180 mg tablet 180 mg PO DAILY 02/18/20 06/10/21 ipratropium 0.5 mg-albuterol 3 mg ml INHALATION 02/18/20 06/10/21 (2.5 mg base)/3 mL nebulization soln melatonin 5 mg capsule mg PO 02/24/20 06/10/21 olmesartan 40 mg tablet 40 mg PO DAILY 10/27/20 06/10/21 umeclidinium 62.5 mcg-vilanterol 1 puff PO DAILY 12/07/20 06/10/21 25 mcg/actuation powdr for inhalation (Anoro Ellipta) latanoprost 0.005 % eye drops 1 drp OPHTHALMIC (EYE) DAILY ml 12/09/20 06/10/21 Previous Rx's Medication Instructions Recorded dextromethorphan-guaifenesin 30 1 tab PO Q12H 10 Days #20 tab 02/18/20 mg-600 mg tablet extended [id number] hr (Mucinex DM) naproxen 500 mg tablet 500 mg PO BID PRN 10 Days #20 tab 02/19/20 nebulizer accessories #1 ea 03/04/20 amlodipine 10 mg tablet 10 mg PO DAILY #90 tab 05/11/20 azelastine 205.5 mcg (0.15 %) 2 spray INTRANASAL BID 30 Days #30 07/16/20 nasal spray ml glycopyrrolate 9 mcg-formoterol 2 puff INHALATION Q12H 30 Days 07/16/20 4.8 mcg HFA aerosol inhaler #10.7 g (Bevespi Aerosphere) COMPRESSION STOCKINGS #3 ea 11/06/20 HIP BRACE (left hip) #1 ea 11/06/20 albuterol sulfate 2.5 mg (3 mL) CONTINUOUS 11/06/20 NEBULIZATION QID PRN 30 Days #480 ml budesonide 0.5 mg/2 mL suspension 0.5 mg (2 mL) INHALATION BID 30 11/17/20 for nebulization Days #120 ml albuterol sulfate 90 mcg/actuation 2 puff PO QID PRN 90 Days #3 units 01/13/21 aerosol inhaler (Ventolin HFA) hydrochlorothiazide 25 mg tablet 25 mg PO DAILY #90 tab 01/13/21 mupirocin 2 % topical ointment 1 appl TOPICAL TID PRN 10 Days #66 01/13/21 g metoprolol succinate 50 mg 75 mg PO DAILY 90 Days #135 tab 01/26/21 tablet,extended release 24 hr fluticasone propionate 110 2 puff INHALATION BID 30 Days #12 g 01/27/21 mcg/actuation HFA aerosol inhaler (Flovent HFA) ezetimibe 10 mg tablet (Zetia) 10 mg PO DAILY #30 tab 02/03/21 dexlansoprazole 60 mg 60 mg PO DAILY 90 Days #90 cap 02/09/21 capsule,biphase delayed release (Dexilant) lancets 28 gauge (FreeStyle 28 gauge TOPICAL TID #300 ea 02/09/21 Lancets) fluticasone fur. 200 mcg-umeclid 1 inh INHALATION DAILY 30 Days #60 02/25/21 62.5 mcg-vilant 25 mcg ea inhalat.powder (Trelegy Ellipta) azithromycin 500 mg tablet 500 mg PO DAILY 3 Days #3 tab 03/22/21 prednisone 10 mg tablets in a dose See Rx Instructions PO PER PKG DIR 03/22/21 pack #21 ea roflumilast 250 mcg tablet 250 mcg PO DAILY #30 tab 04/01/21 (Daliresp) cholecalciferol (vitamin D3) 25 75 mcg PO DAILY #30 tab 04/13/21 mcg (1,000 unit) tablet alcohol swabs (BD Alcohol Swabs) 1 pad TOPICAL TID #300 pad 04/16/21 linagliptin 5 mg tablet (Tradjenta) 5 mg PO DAILY #30 tab 04/16/21 sildenafil 50 mg tablet 50 mg PO DAILY PRN #10 tab 05/26/21 azithromycin 500 mg tablet 500 mg PO DAILY 3 Days #3 tab 06/10/21 benzonatate 200 mg capsule 200 mg PO BID PRN 30 Days #30 cap 06/10/21 dextromethorphan-guaifenesin 10 10 ml PO Q6H PRN 14 Days #500 ml 06/10/21 mg-100 mg/5 mL oral syrup (Adult Tussin DM) dextromethorphan-guaifenesin 10 10 ml PO Q6H PRN #300 ml 06/10/21 mg-200 mg/5 mL oral liquid (Adult Wal-Tussin DM Max) prednisone 10 mg tablet See Rx Instructions PO DAILY 18 06/10/21 Days #63 tab montelukast 10 mg tablet 10 mg PO QPM #90 tab 06/15/21 blood sugar diagnostic (FreeStyle 1 strip MISCELLANEOUS TID #300 06/18/21 Lite Strips) strip lorazepam 0.5 mg tablet See Rx Instructions .ROUTE 06/18/21 .COMPLEX PRN 30 Days #60 tab gabapentin 400 mg capsule See Rx Instructions PO .COMPLEX 30 06/28/21 Days #120 cap glipizide 5 mg tablet, extended 5 mg PO DAILY #90 tab 06/28/21 release 24 hr zolpidem 10 mg tablet 10 mg PO BEDTIME PRN 30 Days #30 06/28/21 tab Allergies Allergy/AdvReac Type Severity Reaction Status Date / Time iodine [Iodine] Allergy Severe THROAT Verified 06/10/21 09:19 SWELLING lisinopril Allergy Severe Rash Verified 06/10/21 09:19 metformin Allergy Severe diarrhea Verified 06/10/21 09:19 meperidine [From Demerol] Allergy Mild RASH Verified 06/10/21 09:19 oxycodone [From Percocet] AdvReac Mild MOUTH Verified 06/10/21 09:19 DRYNESS,RASH Mercury Detox Allergy Severe Close Uncoded 06/10/21 09:19 Throat Shellfish Allergy Severe THROAT Uncoded 06/10/21 09:19 SWELLING Review of Systems Review of Systems: Constitutional : No Weight loss, No Fever, No Chills, No Night Sweats, No Fatigue, No Malaise ENT/Mouth : No Hearing loss, No Ear Pain, No Nasal Congestion, No Sinus Pain, No Hoarseness, No sore throat, No Rhinorrhea, No Swallowing Difficulty Eyes: No Eye Pain, No Swelling, No Redness, No Foreign Body, No Discharge, No Vision Changes Cardiovascular : Complaining of chest pressure, no orthopnea no edema no palpitations Respiratory : No cough, complaining of wheezing, dyspnea Gastrointestinal : No Nausea, No Vomiting, No Diarrhea, No Constipation, No abdominal Pain, No Hematochezia, No Melena Genitourinary : no irregular bleeding, No Dysuria, No Urinary Frequency, No Hematuria, No Urinary Incontinence, No Urgency, No Flank Pain, No Urinary Flow Changes, No Hesitancy Musculoskeletal : No joint pain, No Myalgias, No Joint Swelling Skin : No Skin Lesions, No rash Neuro : No Weakness, No Numbness, No Paresthesias, No Loss of Consciousness, No Dizziness, No Headache Psych : No Anxiety/Panic, No Depression, No SI/HI/AH/VH, No Social Issues, Heme/Lymph: No Bruising, No Bleeding,No Lymphadenopathy Endocrine : No Polyuria, No Polydipsia, No Temperature Intolerance PMFSH Past Medical History Medical History Anxiety Asthma Asthma-COPD overlap syndrome Benign essential hypertension Bursitis Chronic rhinitis Claustrophobia Diastasis recti Erectile dysfunction GERD (gastroesophageal reflux disease) Hemoptysis Hiatal hernia Insomnia Laryngospasm Low back pain Lumbar degenerative disc disease Major depressive disorder, recurrent Migraine Obesity (BMI 30-39.9) JOSÉ (obstructive sleep apnea) Pure hypercholesterolemia Stasis edema of both lower extremities Type 2 diabetes mellitus with hyperglycemia, without long-term current use of insulin Surgical History History of carpal tunnel surgery History of nasal surgery Hx of cardiac catheterization Hx of colonoscopy Family History Family History Father No problems noted. Mother Chronic kidney disease (CKD) Heart attack Other Mental health problem Social History Social History Housing: House Alcohol intake: never Patient Tobacco Use Status: Never used Tobacco Second Hand Smoke Exposure: Yes Advance Directives: No service: No Current occupational status: disabled Physical Exam ED Vital Signs: Vital Signs - 24 hr 07/09/21 01:09 07/09/21 02:29 Temperature 98.7 F 99.3 F Pulse Rate 96 87 Respiratory Rate 18 18 Blood Pressure 195/100 H 188/95 H Pulse Oximetry 97 98 BMI result Body Mass Index 35.9 Const Other: Appearance: Alert. Oriented X3. No acute distress. Eyes: Pupils equal, round and reactive to light. ENT: Pharynx normal. Neck: Normal inspection. Neck supple. No lymph nodes noted. No crepitus CVS: Normal heart rate and rhythm. Pulses normal. Normal S1 and S2 Respiratory: No respiratory distress. Breath sounds normal. No Wheezing. No rales , good air movement bilaterally, oxygen saturation 97% on room air Abdomen: Soft and nontender. No rigidity. No distention. Skin: Skin warm and dry. Normal skin color. Normal skin turgor. Extremities: No lower extremity edema. No Lacerations. No Rash Neuro: Oriented X 3. No motor deficit. No sensory deficit. Moving all extremities. No slurred speech. CN 2 through 12 grossly intact Psych: calm, cooperative, normal affect Course Course Course Narrative: Patient's oxygen saturation remains at 98%. Patient has been walking around his room, not feeling short of breath, oxygen saturation remains steady in the high 90s. Patient received 1 L of normal saline and 10 units of insulin, glucose is now 151. Patient tested positive for COVID-19. Medical Decision Making Lab Data Result diagrams: 07/09/21 01:47 07/09/21 01:47 Labs: Lab Results 07/09/21 07/09/21 07/09/21 Range/Units 01:47 01:47 01:47 WBC 3.9 L (4.8-10.8) X10*3/uL RBC 5.04 (4.60-5.80) X10*6/uL Hgb 14.7 (14.0-18.0) g/dl Hct 43.8 (42.0-52.0) % MCV 86.9 (80.0-98.0) fL MCH 29.2 (27.0-33.0) pg MCHC 33.6 (31.0-36.0) g/dl RDW 12.1 (11.0-16.0) % Plt Count 187 (160-400) X10*3/uL MPV 11.4 (9.4-12.4) fL Immature Gran % (Auto) 1.0 H (0.0-0.4) % Neut % (Auto) 61.9 (45-73) % Lymph % (Auto) 17.9 L (20-40) % Buchanan % (Auto) 16.1 H (2-11) % Eos % (Auto) 2.3 (0-4) % Baso % (Auto) 0.8 (0-2) % Lymph # (Auto) 0.7 L (1.2-4.9) X10*3/uL Buchanan # (Auto) 0.6 (0.1-1.2) X10*3/uL Eos # (Auto) 0.1 (0.0-0.4) X10*3/uL Baso # (Auto) 0.0 (0.0-0.2) X10*3/uL Abs Immat Gran (auto) 0.04 H (0.00-0.03) X10*3/uL Absolute Neuts (auto) 2.4 (2.0-8.3) x10*3/uL Absolute Nucleated RBC 0.000 (0.0-0.012) X10*3/uL Nucleated RBC % (auto) 0.0 (0.0-0.2) /100WBC Sodium 135 (135-145) mmol/L Potassium 4.3 (3.3-5.1) mmol/L Chloride 101 (96-108) mmol/L Carbon Dioxide 24 (22-29) mmol/L Anion Gap 14 (12-20) BUN 13 (9-16) mg/dL Creatinine 1.26 (0.5-1.4) mg/dL Estim Creat Clear Calc 76.7 Estimated GFR 59 POC Glucose (60-115) mg/dL Random Glucose 378 H* (60-115) mg/dL Calcium 9.1 (8.4-10.2) mg/dL Troponin I High Sens 6.4 (<3.5-35.0) ng/L COVID-19 (ANGEL) (Negative) COVID-19 Clin Com Influenza Type A (PASTOR) (Negative) Influenza Type B (PASTOR) (Negative) Influenza A & B Note 07/09/21 07/09/21 07/09/21 Range/Units 01:47 01:47 04:42 WBC (4.8-10.8) X10*3/uL RBC (4.60-5.80) X10*6/uL Hgb (14.0-18.0) g/dl Hct (42.0-52.0) % MCV (80.0-98.0) fL MCH (27.0-33.0) pg MCHC (31.0-36.0) g/dl RDW (11.0-16.0) % Plt Count (160-400) X10*3/uL MPV (9.4-12.4) fL Immature Gran % (Auto) (0.0-0.4) % Neut % (Auto) (45-73) % Lymph % (Auto) (20-40) % Buchanan % (Auto) (2-11) % Eos % (Auto) (0-4) % Baso % (Auto) (0-2) % Lymph # (Auto) (1.2-4.9) X10*3/uL Buchanan # (Auto) (0.1-1.2) X10*3/uL Eos # (Auto) (0.0-0.4) X10*3/uL Baso # (Auto) (0.0-0.2) X10*3/uL Abs Immat Gran (auto) (0.00-0.03) X10*3/uL Absolute Neuts (auto) (2.0-8.3) x10*3/uL Absolute Nucleated RBC (0.0-0.012) X10*3/uL Nucleated RBC % (auto) (0.0-0.2) /100WBC Sodium (135-145) mmol/L Potassium (3.3-5.1) mmol/L Chloride (96-108) mmol/L Carbon Dioxide (22-29) mmol/L Anion Gap (12-20) BUN (9-16) mg/dL Creatinine (0.5-1.4) mg/dL Estim Creat Clear Calc Estimated GFR POC Glucose 151 H (60-115) mg/dL Random Glucose (60-115) mg/dL Calcium (8.4-10.2) mg/dL Troponin I High Sens (<3.5-35.0) ng/L COVID-19 (ANGEL) Positive A (Negative) COVID-19 Clin Com See Note Influenza Type A (PASTOR) Negative (Negative) Influenza Type B (PASTOR) Negative (Negative) Influenza A & B Note See Note Imaging Data Chest x-ray: Radiologist's impression: INDINGS: Cardiac leads overlie the chest. The lungs are well expanded. There is no focal consolidation, edema, or effusion. No pneumothorax. The cardiomediastinal silhouette is within normal limits. No acute osseous abnormality. XR/XR chest 1V IMPRESSION: No acute pulmonary finding. Discharge Plan Discharge Clinical Impression: COVID-19, Hyperglycemia Patient Disposition: Home, Self-Care Instructions: COVID-19 (Coronavirus Disease 2019) (ED) Additional Instructions: Please follow-up with your primary care physician tomorrow. If you have any worsening or new symptoms, please return to the emergency room or call 911 Prescriptions: No Action (DME) nebulizer accessories Misc See Rx Instructions .ROUTE .MEDSUPPLY Qty: 1 11RF Rx Instructions: tubing, mask, nebulizer cup, mouth piece budesonide 0.5 mg/2 mL suspension for nebulization 0.5 mg inhalation BID 30 Days Qty: 120 6RF albuterol sulfate [Ventolin HFA] 90 mcg/actuation HFA aerosol inhaler 2 puff PO QID PRN (Reason: shortness of breath or wheezing) 90 Days Qty: 3 3RF mupirocin 2 % ointment 1 appl topical TID PRN (Reason: infection) 10 Days Qty: 66 2RF hydrochlorothiazide 25 mg tablet 25 mg PO DAILY Qty: 90 1RF metoprolol succinate 50 mg tablet extended release 24 hr 75 mg PO DAILY 90 Days Qty: 135 3RF Flovent HFA 110 mcg/actuation HFA aerosol inhaler 2 puff inhalation BID 30 Days Qty: 12 11RF ezetimibe [Zetia] 10 mg tablet 10 mg PO DAILY Qty: 30 5RF azithromycin 500 mg tablet 500 mg PO DAILY 3 Days Qty: 3 0RF prednisone 10 mg tablets,dose pack See Rx Instructions PO PER PKG DIR Qty: 21 0RF Rx Instructions: PO PER PKG DIR Daliresp 250 mcg tablet 250 mcg PO DAILY Qty: 30 3RF cholecalciferol (vitamin D3) 25 mcg (1,000 unit) tablet 75 mcg PO DAILY Qty: 30 2RF Tradjenta 5 mg tablet 5 mg PO DAILY Qty: 30 2RF alcohol swabs [BD Alcohol Swabs] Pads, Medicated 1 pad topical TID Qty: 300 0RF sildenafil 50 mg tablet 50 mg PO DAILY PRN (Reason: sexual activity) Qty: 10 1RF dextromethorphan-guaifenesin [Adult Tussin DM] 10-100 mg/5 mL syrup 10 ml PO Q6H PRN (Reason: cough) 14 Days Qty: 500 1RF montelukast 10 mg tablet 10 mg PO QPM Qty: 90 0RF lorazepam 0.5 mg tablet See Rx Instructions .ROUTE .COMPLEX PRN (Reason: anxiety) 30 Days Qty: 60 0RF Rx Instructions: 1 to 2 tablets orally twice a day as needed; PRN; FreeStyle Lite Strips Strip 1 strip miscellaneous TID Qty: 300 11RF glipizide 5 mg tablet extended release 24 hr 5 mg PO DAILY Qty: 90 1RF gabapentin 400 mg capsule See Rx Instructions PO .COMPLEX 30 Days Qty: 120 3RF Rx Instructions: Take 1 capsule in the AM, 1 capsule at noon and 2 capsules at night PO; zolpidem 10 mg tablet 10 mg PO BEDTIME PRN (Reason: insomnia) 30 Days Qty: 30 0RF Anoro Ellipta 62.5-25 mcg/actuation blister with device 1 puff PO DAILY 0RF (DME) HIP BRACE (left hip) See Rx Instructions .Route .MEDSUPPLY Qty: 1 0RF Rx Instructions: As directed (DME) COMPRESSION STOCKINGS medium compression See Rx Instructions .Route .MEDSUPPLY Qty: 3 0RF Rx Instructions: As directed albuterol sulfate 2.5 mg /3 mL (0.083 %) solution for nebulization 2.5 mg continuous nebulization QID PRN (Reason: shortness of breath or wheezing) 30 Days Qty: 480 5RF Dexilant 60 mg capsule,biphase delayed releas 60 mg PO DAILY 90 Days Qty: 90 1RF lancets [FreeStyle Lancets] 28 gauge misc 28 gauge topical TID Qty: 300 11RF aspirin 81 mg tablet,delayed release (DR/EC) 81 mg PO DAILY 0RF clotrimazole-betamethasone 1-0.05 % cream 1 appl topical BID 0RF fexofenadine 180 mg tablet 180 mg PO DAILY 0RF atorvastatin [Lipitor] 80 mg tablet 80 mg PO DAILY 0RF ipratropium-albuterol 0.5 mg-3 mg(2.5 mg base)/3 mL solution for nebulization inhalation 0RF Mucinex DM 30-600 mg tablet extended release 12 hr 1 tab PO Q12H 10 Days Qty: 20 0RF naproxen 500 mg tablet 500 mg PO BID PRN (Reason: pain) 10 Days Qty: 20 0RF olmesartan 40 mg tablet 40 mg PO DAILY 0RF melatonin 5 mg capsule PO 0RF amlodipine 10 mg tablet 10 mg PO DAILY Qty: 90 1RF Bevespi Aerosphere 9-4.8 mcg HFA aerosol inhaler 2 puff inhalation Q12H 30 Days Qty: 10.7 11RF azelastine 205.5 mcg (0.15 %) spray,non-aerosol 2 spray intranasal BID 30 Days Qty: 30 11RF Rx Instructions: administer into each nostril latanoprost 0.005 % drops 1 drp ophthalmic (eye) DAILY 0RF Rx Instructions: as directed Trelegy Ellipta 200-62.5-25 mcg blister with device 1 inh inhalation DAILY 30 Days Qty: 60 12RF prednisone 10 mg tablet See Rx Instructions PO DAILY 18 Days Qty: 63 0RF Rx Instructions: PO daily; Take 6 tabs daily x 3 days, then 5 tabs x 3 days, then 4 tabs x 3 days, then 3 tabs x 3 days, then 2 tabs daily x 3 days, then 1 tab x 3 days to complete. azithromycin 500 mg tablet 500 mg PO DAILY 3 Days Qty: 3 0RF benzonatate 200 mg capsule 200 mg PO BID PRN (Reason: cough) 30 Days Qty: 30 0RF Adult Wal-Tussin DM Max 10-200 mg/5 mL liquid 10 ml PO Q6H PRN (Reason: cough) Qty: 300 4RF
--- NOTE | 2021-07-09 01:22 | ECG_ITS ---
Test Reason : SOB Blood Pressure : / mmHG Vent. Rate : 090 BPM Atrial Rate : 090 BPM P-R Int : 190 ms QRS Dur : 142 ms QT Int : 386 ms P-R-T Axes : 028 -60 029 degrees QTc Int : 472 ms Normal sinus rhythm Right bundle branch block Left anterior fascicular block Bifascicular block Cannot rule out Inferior infarct (masked by fascicular block?) , age undetermined Abnormal ECG When compared with ECG of 02-FEB-2021 03:00, Minimal criteria for Inferior infarct are now Present Referred By: Lisette Carbone Electronically Signed By:HUGO CLARKE MD
[2021-07-09 01:53] LABS: MANUAL DIFF FLAG NO
[2021-07-09 01:55] LABS: Basophils Percent Auto 0.8 % (0-2); Eosinophils Absolute Auto 0.1 X10*3/uL (0.0-0.4); Eosinophils Percent Auto 2.3 % (0-4); Hematocrit 43.8 % (42.0-52.0); Hemoglobin 14.7 g/dl (14.0-18.0); Imm Gran Abs Auto 0.04 X10*3/uL (0.00-0.03); Lymphocytes Absolute Auto 0.7 X10*3/uL (1.2-4.9); Lymphocytes Percent Auto 17.9 % (20-40); Mean Corpuscular HGB Conc 33.6 g/dl (31.0-36.0); Mean Corpuscular Hemoglobin 29.2 pg (27.0-33.0); Mean Corpuscular Volume 86.9 fL (80.0-98.0); Mean Platelet Volume 11.4 fL (9.4-12.4); Monocytes Absolute Auto 0.6 X10*3/uL (0.1-1.2); Monocytes Percent Auto 16.1 % (2-11); Neutrophils Absolute Auto 2.4 x10*3/uL (2.0-8.3); Neutrophils Percent Auto 61.9 % (45-73); Platelet Count 187 X10*3/uL (160-400); Red Blood Count 5.04 X10*6/uL (4.60-5.80); Red Cell Distribution Width 12.1 % (11.0-16.0); White Blood Count 3.9 X10*3/uL (4.8-10.8)
[2021-07-09 02:01] LABS: COVID-19 Test Positive (Negative)
[2021-07-09 02:11] LABS: IDNOW Serial# 16C4AD1C; Influenza A Negative (Negative); Influenza B2 Negative (Negative)
[2021-07-09 02:29] VITALS: BP 188/95; PULSE 87; RESP 18; TEMP 37.4; O2SAT 98
[2021-07-09 02:50] LABS: Anion Gap 14 (12-20); Blood Urea Nitrogen 13 mg/dL (9-16); Carbon Dioxide 24 mmol/L (22-29); Chloride 101 mmol/L (96-108); Creatinine Clr Calc Pharmacy 76.7; Estimated Glomerular Filt Rate 59; Potassium 4.3 mmol/L (3.3-5.1); Sodium 135 mmol/L (135-145)
[2021-07-09 02:51] LABS: Calcium 9.1 mg/dL (8.4-10.2); Troponin-I High Sensitivity 6.4 ng/L (<3.5-35.0)
[2021-07-09] MEDS: Insulin Regular, Human 100 UNIT/ML 3 ML VIAL 10 UNIT IVPUSH (02:56)
[2021-07-09] MEDS: 0.9 % Sodium Chloride 1,000 ML 999 ML IVCONT (02:57)
[2021-07-09 04:47] LABS: Glucose, Whole Blood 151 mg/dL (60-115)
[2021-07-09 06:19] LABS: Glucose Random 378 mg/dL (60-115)
== END 2021-07-09 05:26 | disposition home or self-care (01) ==
PROVIDERS: Emergency Provider Emergency Medicine; PCP Internal Medicine
DX: U07.1 COVID-19 (principal); R06.02 Shortness of breath; J45.909 Unspecified asthma, uncomplicated; E11.65 Type 2 diabetes mellitus with hyperglycemia; Z79.4 Long term (current) use of insulin; Z79.899 Other long term (current) drug therapy; Z79.82 Long term (current) use of aspirin
CPT/HCPCS: 71045; 80048; 82947; 84484; 85025; 87502; 87635; 93005; 96361; 96374; 99283; 99284

== ENCOUNTER 2021-07-13 19:52 | Emergency (ER) | payer OTHER, SELFPAY ==
--- NOTE | ~2021-07-13 | XR_ITS ---
EXAMINATION: XR CHEST CLINICAL INFORMATION: Chest pain COMPARISON: 07/09/2021 TECHNIQUE: Frontal view of the chest was obtained. FINDINGS: Cardiomediastinal silhouette is normal. Lungs are clear without consolidation, pleural effusion or pneumothorax. XR/XR chest 1V IMPRESSION: No acute process.
--- NOTE | 2021-07-13 19:53 | ECG_ITS ---
Test Reason : CP Blood Pressure : / mmHG Vent. Rate : 097 BPM Atrial Rate : 097 BPM P-R Int : 170 ms QRS Dur : 142 ms QT Int : 396 ms P-R-T Axes : 008 -56 006 degrees QTc Int : 502 ms Normal sinus rhythm Right bundle branch block Left anterior fascicular block Bifascicular block Possible Lateral infarct , age undetermined Cannot rule out Inferior infarct (cited on or before 09-JUL-2021) Abnormal ECG When compared with ECG of 09-JUL-2021 01:25, Borderline criteria for Lateral infarct are now Present Referred By: Generic ED Physician Electronically Signed By:KANDY GIMENEZ
[2021-07-13 19:56] VITALS: BP 178/110; PULSE 98; RESP 19; TEMP 36.3; O2SAT 95; BMI 35.2
[2021-07-13 20:13] LABS: MANUAL DIFF FLAG NO
[2021-07-13 20:14] LABS: Basophils Percent Auto 0.3 % (0-2); Eosinophils Percent Auto 0.2 % (0-4); Hematocrit 48.8 % (42.0-52.0); Hemoglobin 16.5 g/dl (14.0-18.0); Imm Gran Abs Auto 0.03 X10*3/uL (0.00-0.03); Imm Gran Pct Auto 0.5 % (0.0-0.4); Lymphocytes Absolute Auto 0.6 X10*3/uL (1.2-4.9); Lymphocytes Percent Auto 10.3 % (20-40); Mean Corpuscular HGB Conc 33.8 g/dl (31.0-36.0); Mean Corpuscular Hemoglobin 28.8 pg (27.0-33.0); Mean Corpuscular Volume 85.3 fL (80.0-98.0); Mean Platelet Volume 11.5 fL (9.4-12.4); Monocytes Absolute Auto 0.2 X10*3/uL (0.1-1.2); Monocytes Percent Auto 2.8 % (2-11); Neutrophils Percent Auto 85.9 % (45-73); Platelet Count 242 X10*3/uL (160-400); Red Blood Count 5.72 X10*6/uL (4.60-5.80); Red Cell Distribution Width 12.2 % (11.0-16.0); White Blood Count 5.8 X10*3/uL (4.8-10.8)
[2021-07-13 20:34] LABS: Troponin-I High Sensitivity 3.6 ng/L (<3.5-35.0)
[2021-07-13 20:35] LABS: Anion Gap 16 (12-20); Blood Urea Nitrogen 20 mg/dL (9-16); Calcium 9.7 mg/dL (8.4-10.2); Carbon Dioxide 24 mmol/L (22-29); Chloride 98 mmol/L (96-108); Creatinine Clr Calc Pharmacy 65.6; Estimated Glomerular Filt Rate 50; Glucose Random 497 mg/dL (60-115); Potassium 4.8 mmol/L (3.3-5.1); Sodium 133 mmol/L (135-145)
[2021-07-13 21:11] VITALS: BP 166/110; PULSE 95; RESP 18; O2SAT 96
--- NOTE | 2021-07-13 21:32 | ED.CHESTPAIN ---
HPI - Chest Pain General Chief Complaint: Chest Pain Stated Complaint: sob; chest pain Source: patient Mode of arrival: ambulatory Limitations: no limitations History of Present Illness HPI narrative: 56-year-old male presents with 2 days of chest pain. States that he feels like there is a block of ice on his chest, was tested positive for COVID-19 1 week ago. MD complaint: chest pain and chest discomfort Pertinent past history: other (COVID-19) Onset (ago): day(s) (2) Timing of current episode: still present Prior episodes: No Onset: during rest Pain location: substernal Pain radiation: none Severity: moderate Quality: tightness and heaviness Relieving factors: nothing Exacerbating factors: exertion, inspiration, palpation and movement Context: recent illness Treatment prior to arrival: none Risk Factors Coronary artery disease risk factors: none Thoracic aortic dissection risk factors: none Related Data Home Medications Medication Instructions Recorded Confirmed aspirin 81 mg tablet,delayed 81 mg PO DAILY 02/18/20 06/10/21 release atorvastatin 80 mg tablet (Lipitor) 80 mg PO DAILY 02/18/20 06/10/21 clotrimazole-betamethasone 1 1 appl TOPICAL BID 02/18/20 06/10/21 %-0.05 % topical cream fexofenadine 180 mg tablet 180 mg PO DAILY 02/18/20 06/10/21 ipratropium 0.5 mg-albuterol 3 mg ml INHALATION 02/18/20 06/10/21 (2.5 mg base)/3 mL nebulization soln melatonin 5 mg capsule mg PO 02/24/20 06/10/21 olmesartan 40 mg tablet 40 mg PO DAILY 10/27/20 06/10/21 umeclidinium 62.5 mcg-vilanterol 1 puff PO DAILY 12/07/20 06/10/21 25 mcg/actuation powdr for inhalation (Anoro Ellipta) latanoprost 0.005 % eye drops 1 drp OPHTHALMIC (EYE) DAILY ml 12/09/20 06/10/21 Previous Rx's Medication Instructions Recorded dextromethorphan-guaifenesin 30 1 tab PO Q12H 10 Days #20 tab 02/18/20 mg-600 mg tablet extended hr (Mucinex DM) naproxen 500 mg tablet 500 mg PO BID PRN 10 Days #20 tab 02/19/20 nebulizer accessories #1 ea 03/04/20 amlodipine 10 mg tablet 10 mg PO DAILY #90 tab 05/11/20 azelastine 205.5 mcg (0.15 %) 2 spray INTRANASAL BID 30 Days #30 07/16/20 nasal spray ml glycopyrrolate 9 mcg-formoterol 2 puff INHALATION Q12H 30 Days 07/16/20 4.8 mcg HFA aerosol inhaler #10.7 g (Bevespi Aerosphere) COMPRESSION STOCKINGS #3 ea 11/06/20 HIP BRACE (left hip) #1 ea 11/06/20 albuterol sulfate 2.5 mg (3 mL) CONTINUOUS 11/06/20 NEBULIZATION QID PRN 30 Days #480 ml budesonide 0.5 mg/2 mL suspension 0.5 mg (2 mL) INHALATION BID 30 11/17/20 for nebulization Days #120 ml albuterol sulfate 90 mcg/actuation 2 puff PO QID PRN 90 Days #3 units 01/13/21 aerosol inhaler (Ventolin HFA) hydrochlorothiazide 25 mg tablet 25 mg PO DAILY #90 tab 01/13/21 mupirocin 2 % topical ointment 1 appl TOPICAL TID PRN 10 Days #66 01/13/21 g metoprolol succinate 50 mg 75 mg PO DAILY 90 Days #135 tab 01/26/21 tablet,extended release 24 hr fluticasone propionate 110 2 puff INHALATION BID 30 Days #12 g 01/27/21 mcg/actuation HFA aerosol inhaler (Flovent HFA) ezetimibe 10 mg tablet (Zetia) 10 mg PO DAILY #30 tab 02/03/21 dexlansoprazole 60 mg 60 mg PO DAILY 90 Days #90 cap 02/09/21 capsule,biphase delayed release (Dexilant) lancets 28 gauge (FreeStyle 28 gauge TOPICAL TID #300 ea 02/09/21 Lancets) fluticasone fur. 200 mcg-umeclid 1 inh INHALATION DAILY 30 Days #60 02/25/21 62.5 mcg-vilant 25 mcg ea inhalat.powder (Trelegy Ellipta) azithromycin 500 mg tablet 500 mg PO DAILY 3 Days #3 tab 03/22/21 prednisone 10 mg tablets in a dose See Rx Instructions PO PER PKG DIR 03/22/21 pack #21 ea roflumilast 250 mcg tablet 250 mcg PO DAILY #30 tab 04/01/21 (Daliresp) cholecalciferol (vitamin D3) 25 75 mcg PO DAILY #30 tab 04/13/21 mcg (1,000 unit) tablet alcohol swabs (BD Alcohol Swabs) 1 pad TOPICAL TID #300 pad 04/16/21 linagliptin 5 mg tablet (Tradjenta) 5 mg PO DAILY #30 tab 04/16/21 sildenafil 50 mg tablet 50 mg PO DAILY PRN #10 tab 05/26/21 azithromycin 500 mg tablet 500 mg PO DAILY 3 Days #3 tab 06/10/21 benzonatate 200 mg capsule 200 mg PO BID PRN 30 Days #30 cap 06/10/21 dextromethorphan-guaifenesin 10 10 ml PO Q6H PRN 14 Days #500 ml 06/10/21 mg-100 mg/5 mL oral syrup (Adult Tussin DM) dextromethorphan-guaifenesin 10 10 ml PO Q6H PRN #300 ml 06/10/21 mg-200 mg/5 mL oral liquid (Adult Wal-Tussin DM Max) prednisone 10 mg tablet See Rx Instructions PO DAILY 18 06/10/21 Days #63 tab montelukast 10 mg tablet 10 mg PO QPM #90 tab 06/15/21 blood sugar diagnostic (FreeStyle 1 strip MISCELLANEOUS TID #300 06/18/21 Lite Strips) strip lorazepam 0.5 mg tablet See Rx Instructions .ROUTE 06/18/21 .COMPLEX PRN 30 Days #60 tab gabapentin 400 mg capsule See Rx Instructions PO .COMPLEX 30 06/28/21 Days #120 cap glipizide 5 mg tablet, extended 5 mg PO DAILY #90 tab 06/28/21 release 24 hr zolpidem 10 mg tablet 10 mg PO BEDTIME PRN 30 Days #30 06/28/21 tab azithromycin 250 mg tablet See Rx Instructions PO .COMPLEX #6 07/12/21 tab prednisone 10 mg tablets in a dose See Rx Instructions PO PER PKG DIR 07/12/21 pack 8 Days #20 tab Allergies Allergy/AdvReac Type Severity Reaction Status Date / Time iodine [Iodine] Allergy Severe THROAT Verified 07/13/21 19:55 SWELLING lisinopril Allergy Severe Rash Verified 07/13/21 19:55 metformin Allergy Severe diarrhea Verified 07/13/21 19:55 meperidine [From Demerol] Allergy Mild RASH Verified 07/13/21 19:55 oxycodone [From Percocet] AdvReac Mild MOUTH Verified 07/13/21 19:55 DRYNESS,RASH Mercury Detox Allergy Severe Close Uncoded 07/13/21 19:55 Throat Shellfish Allergy Severe THROAT Uncoded 07/13/21 19:55 SWELLING Review of Systems Review of Systems: Constitutional: No Weight loss, No Fever, No Chills, No Night Sweats, positive Fatigue, No Malaise ENT/Mouth: No Hearing loss, No Ear Pain, No Nasal Congestion, No Sinus Pain, No Hoarseness, No sore throat, No Rhinorrhea, No Swallowing Difficulty Eyes: No Eye Pain, No Swelling, No Redness, No Foreign Body, No Discharge, No Vision Changes Cardiovascular: Positive Chest Pain, no SOB, no Dyspnea on Exertion, No Orthopnea, No Edema, No Palpitations Respiratory: No Cough, No Sputum, No Wheezing, No Smoke Exposure, No Dyspnea Gastrointestinal: No Nausea, No Vomiting, No Diarrhea, No abdominal Pain, No Hematochezia, No Melena Genitourinary: No irregular bleeding, No Dysuria, No Urinary Frequency, No Hematuria, No Urinary Incontinence, No Urgency, No Flank Pain, No Urinary Flow Changes, No Hesitancy Musculoskeletal: No joint pain, No Myalgias, No Joint Swelling Skin: No Skin Lesions, No rash Neuro: No Weakness, No Numbness, No Paresthesias, No Loss of Consciousness, No Dizziness, No Headache Psych: No Anxiety/Panic, No Depression, No SI/HI/AH/VH Heme/Lymph: No Bruising, No Bleeding,No Lymphadenopathy Endocrine: No Polyuria, No Polydipsia, No Temperature Intolerance Yes all other systems are reviewed and are negative [facility] Past Medical History Attestation statement: The following information was validated with the patient. Source: old records reviewed Medical History Anxiety Asthma Asthma-COPD overlap syndrome Benign essential hypertension Bursitis Chronic rhinitis Claustrophobia Diastasis recti Erectile dysfunction GERD (gastroesophageal reflux disease) Hemoptysis Hiatal hernia Insomnia Laryngospasm Low back pain Lumbar degenerative disc disease Major depressive disorder, recurrent Migraine Obesity (BMI 30-39.9) JOSÉ (obstructive sleep apnea) Pure hypercholesterolemia Stasis edema of both lower extremities Type 2 diabetes mellitus with hyperglycemia, without long-term current use of insulin Surgical History History of carpal tunnel surgery History of nasal surgery Hx of cardiac catheterization Hx of colonoscopy Family History Family History Father No problems noted. Mother Chronic kidney disease (CKD) Heart attack Other Mental health problem Social History Social History Housing: House Alcohol intake: never Patient Tobacco Use Status: Never used Tobacco Second Hand Smoke Exposure: Yes Advance Directives: No Advance Directives Information Provided: Yes service: No Current occupational status: disabled Physical Exam Vital Signs: Vital Signs: Last Vital Signs Temp 97.4 F 07/13/21 19:56 Pulse 95 07/13/21 21:11 Resp 18 07/13/21 21:11 BP 166/110 H 07/13/21 21:11 Pulse Ox 96 07/13/21 21:11 BMI result Body Mass Index 35.2 Appearance: Alert. Oriented X3. No acute distress. Eyes: Pupils equal, round and reactive to light. Sclera nonicteric. ENT: Pharynx normal. Moist mucous membranes. Neck: Normal inspection. Neck supple. CVS: Normal heart rate and rhythm. Apical pulse equal to pulses to extremities. Brisk capillary refill to all extremities. Respiratory: No respiratory distress. Lung sounds clear to auscultation all lobes. No reproducible chest wall tenderness on palpation. Abdomen: Soft and nontender. Obese. No rigidity or distention noted. Skin: Skin warm and dry. Normal skin color. Normal skin turgor. Extremities: No lower extremity edema. Gait well-balanced well coordinated. Neuro: No motor deficit. No sensory deficit. Cranial nerves 2-12 intact. Course Course Course Narrative: 56-year-old male presents with chest pain that feels more like a block of ice on his chest. He is able to take deep breaths, does not report any dizziness, lightheadedness, nausea, vomiting, abdominal pain, abdominal distention, shoulder pain, increased pain on our movement or any other concerning symptoms. No past history of OK, does have RBBB, NSVT, and was diagnosed COVID positive last week. Labs drawn while patient was in the emergency department waiting room, chest x-ray is negative, EKG shows no significant changes without ST elevation or depression indicating ischemia. Patient does have a workup for sleep apnea sleep study next month. Low likelihood of ACS at this time. No indication of pneumonia on the chest x-ray. Patient's blood sugar 497. I will give subcu insulin at this time. He does take prednisone for shortness of breath provided to him by Dr. Oates tool repair technician. I did discuss his blood sugar findings in detail with this patient, he does understand that he must follow up with his primary care physician and that he may need insulin for elevated blood sugars. Patient does understand that he must follow up with Dr. Oates and possibly find an alternative for the p.o. prednisone. Patient is afebrile, vital signs were stable and within normal limits, no indication of toxicity. Patient is alert oriented x4. Even unlabored respirations. Will discharge patient home with supportive measures. Patient verbalized understanding of and agrees to plan of care. Patient verbalized understanding of and agrees to plan of care to discharge home. Verbalized understanding of signs and symptoms indicating need for emergent intervention MDM - Chest Pain Differential Diagnosis Differential diagnosis: Likely fracture of rib, pneumothorax, stable angina, unstable angina pectoris, atypical chest pain, st elevation myocardial infarction, costochondritis and chest pain Medical Records Data Attestation: I reviewed the patient's medical records. Lab Data Attestation: I reviewed the patient's lab results. Result diagrams: 07/13/21 20:07 07/13/21 20:06 Labs: Lab Results 07/13/21 07/13/21 07/13/21 Range/Units 20:06 20:06 20:07 WBC 5.8 (4.8-10.8) X10*3/uL RBC 5.72 (4.60-5.80) X10*6/uL Hgb 16.5 (14.0-18.0) g/dl Hct 48.8 (42.0-52.0) % MCV 85.3 (80.0-98.0) fL MCH 28.8 (27.0-33.0) pg MCHC 33.8 (31.0-36.0) g/dl RDW 12.2 (11.0-16.0) % Plt Count 242 D (160-400) X10*3/uL MPV 11.5 (9.4-12.4) fL Immature Gran % (Auto) 0.5 H (0.0-0.4) % Neut % (Auto) 85.9 H (45-73) % Lymph % (Auto) 10.3 L (20-40) % Cavalier % (Auto) 2.8 (2-11) % Eos % (Auto) 0.2 (0-4) % Baso % (Auto) 0.3 (0-2) % Lymph # (Auto) 0.6 L (1.2-4.9) X10*3/uL Cavalier # (Auto) 0.2 (0.1-1.2) X10*3/uL Eos # (Auto) 0.0 (0.0-0.4) X10*3/uL Baso # (Auto) 0.0 (0.0-0.2) X10*3/uL Abs Immat Gran (auto) 0.03 (0.00-0.03) X10*3/uL Absolute Neuts (auto) 5.0 (2.0-8.3) x10*3/uL Absolute Nucleated RBC 0.000 (0.0-0.012) X10*3/uL Nucleated RBC % (auto) 0.0 (0.0-0.2) /100WBC Sodium 133 L (135-145) mmol/L Potassium 4.8 (3.3-5.1) mmol/L Chloride 98 (96-108) mmol/L Carbon Dioxide 24 (22-29) mmol/L Anion Gap 16 (12-20) BUN 20 H D (9-16) mg/dL Creatinine 1.46 H (0.5-1.4) mg/dL Estim Creat Clear Calc 65.6 Estimated GFR 50 Random Glucose 497 H* (60-115) mg/dL Calcium 9.7 D (8.4-10.2) mg/dL Troponin I High Sens 3.6 (<3.5-35.0) ng/L Imaging Data Chest x-ray: Attestation: I personally reviewed and interpreted this imaging study as follows: Radiologist's impression: EXAMINATION: XR CHEST CLINICAL INFORMATION: Chest pain COMPARISON: 07/09/2021 TECHNIQUE: Frontal view of the chest was obtained. FINDINGS: Cardiomediastinal silhouette is normal. Lungs are clear without consolidation, pleural effusion or pneumothorax. XR/XR chest 1V IMPRESSION: No acute process. ? ECG Data ECG #1: Attestation: I personally reviewed and interpreted this ECG as follows: ECG interpretation date: 07/13/21 ECG interpretation time: 19:51 Prior ECG tracings: available for review Interpretation: Vent. rate 97 BPM KS interval 170 ms QRS duration 142 ms QT/QTc 396/502 ms P-R-T axes 8 -56 6 Normal sinus rhythm Right bundle branch block Left anterior fascicular block Bifascicular block Possible Lateral infarct , age undetermined Cannot rule out Inferior infarct (cited on or before 09-JUL-2021) Abnormal ECG When compared with ECG of 09-JUL-2021 01:25, Borderline criteria for Lateral infarct are now Present Questionable change in initial forces of Inferior leads Scores Heart Score History: -0- slightly suspicious ECG: -1- non specific repolarization disturbance Age: -1- >45 - <65 Risk factory: -1- 1 or 2 risk factors Troponin: -0- < or = normal limit Score: 3 Risk: 1.7% Discharge Plan Discharge Clinical Impression: Atypical chest pain, COVID-19, Type 2 diabetes mellitus with hyperglycemia, without long-term current use of insulin Patient Disposition: Home, Self-Care Instructions: Covid-19 Viral Syndrome and Novel Coronavirus (ED) Hey/Ath, Chest Pain (ED), Noncardiac Chest Pain (ED), Type 2 Diabetes in the Older Adult (ED) Additional Instructions: You were evaluated for chest pain. EKG shows no significant changes from your prior, no ST elevation or depression indicating ischemia or cardiac event. Your cardiac enzymes are negative. Your blood sugar was elevated at 500. We gave you 7 units of insulin. Please follow-up with your tool repair technician as well as your primary care physician as you may need medication changes. Prednisone does increase blood sugar. You may need insulin. You must discuss this with your primary care Please follow-up with sleep study for suspected obstructive sleep apnea. Drink plenty of fluids. Increase water intake. Please maintain isolation guidelines per COVID-19. Thank you for choosing this emergency department for evaluation. Please follow-up with primary care physician as needed. Return to the emergency department for any new, concerning, or worsening symptoms. Prescriptions: No Action (DME) nebulizer accessories Misc See Rx Instructions .ROUTE .MEDSUPPLY Qty: 1 11RF Rx Instructions: tubing, mask, nebulizer cup, mouth piece budesonide 0.5 mg/2 mL suspension for nebulization 0.5 mg inhalation BID 30 Days Qty: 120 6RF albuterol sulfate [Ventolin HFA] 90 mcg/actuation HFA aerosol inhaler 2 puff PO QID PRN (Reason: shortness of breath or wheezing) 90 Days Qty: 3 3RF mupirocin 2 % ointment 1 appl topical TID PRN (Reason: infection) 10 Days Qty: 66 2RF hydrochlorothiazide 25 mg tablet 25 mg PO DAILY Qty: 90 1RF metoprolol succinate 50 mg tablet extended release 24 hr 75 mg PO DAILY 90 Days Qty: 135 3RF Flovent HFA 110 mcg/actuation HFA aerosol inhaler 2 puff inhalation BID 30 Days Qty: 12 11RF ezetimibe [Zetia] 10 mg tablet 10 mg PO DAILY Qty: 30 5RF azithromycin 500 mg tablet 500 mg PO DAILY 3 Days Qty: 3 0RF prednisone 10 mg tablets,dose pack See Rx Instructions PO PER PKG DIR Qty: 21 0RF Rx Instructions: PO PER PKG DIR Daliresp 250 mcg tablet 250 mcg PO DAILY Qty: 30 3RF cholecalciferol (vitamin D3) 25 mcg (1,000 unit) tablet 75 mcg PO DAILY Qty: 30 2RF Tradjenta 5 mg tablet 5 mg PO DAILY Qty: 30 2RF alcohol swabs [BD Alcohol Swabs] Pads, Medicated 1 pad topical TID Qty: 300 0RF sildenafil 50 mg tablet 50 mg PO DAILY PRN (Reason: sexual activity) Qty: 10 1RF dextromethorphan-guaifenesin [Adult Tussin DM] 10-100 mg/5 mL syrup 10 ml PO Q6H PRN (Reason: cough) 14 Days Qty: 500 1RF montelukast 10 mg tablet 10 mg PO QPM Qty: 90 0RF lorazepam 0.5 mg tablet See Rx Instructions .ROUTE .COMPLEX PRN (Reason: anxiety) 30 Days Qty: 60 0RF Rx Instructions: 1 to 2 tablets orally twice a day as needed; PRN; FreeStyle Lite Strips Strip 1 strip miscellaneous TID Qty: 300 11RF glipizide 5 mg tablet extended release 24 hr 5 mg PO DAILY Qty: 90 1RF gabapentin 400 mg capsule See Rx Instructions PO .COMPLEX 30 Days Qty: 120 3RF Rx Instructions: Take 1 capsule in the AM, 1 capsule at noon and 2 capsules at night PO; zolpidem 10 mg tablet 10 mg PO BEDTIME PRN (Reason: insomnia) 30 Days Qty: 30 0RF azithromycin 250 mg tablet See Rx Instructions PO .COMPLEX Qty: 6 0RF Rx Instructions: take 500 mg today (day 1), then 250 mg for 4 days (days 2-5) PO prednisone 10 mg tablets,dose pack See Rx Instructions PO PER PKG DIR 8 Days Qty: 20 0RF Rx Instructions: 4 tablets x 2 days, then 3 tablets x 2 days, then 2 tablets x 2 days, then 1 tablet x 2 days Anoro Ellipta 62.5-25 mcg/actuation blister with device 1 puff PO DAILY 0RF (DME) HIP BRACE (left hip) See Rx Instructions .Route .MEDSUPPLY Qty: 1 0RF Rx Instructions: As directed (DME) COMPRESSION STOCKINGS medium compression See Rx Instructions .Route .MEDSUPPLY Qty: 3 0RF Rx Instructions: As directed albuterol sulfate 2.5 mg /3 mL (0.083 %) solution for nebulization 2.5 mg continuous nebulization QID PRN (Reason: shortness of breath or wheezing) 30 Days Qty: 480 5RF Dexilant 60 mg capsule,biphase delayed releas 60 mg PO DAILY 90 Days Qty: 90 1RF lancets [FreeStyle Lancets] 28 gauge misc 28 gauge topical TID Qty: 300 11RF aspirin 81 mg tablet,delayed release (DR/EC) 81 mg PO DAILY 0RF clotrimazole-betamethasone 1-0.05 % cream 1 appl topical BID 0RF fexofenadine 180 mg tablet 180 mg PO DAILY 0RF atorvastatin [Lipitor] 80 mg tablet 80 mg PO DAILY 0RF ipratropium-albuterol 0.5 mg-3 mg(2.5 mg base)/3 mL solution for nebulization inhalation 0RF Mucinex DM 30-600 mg tablet extended release 12 hr 1 tab PO Q12H 10 Days Qty: 20 0RF naproxen 500 mg tablet 500 mg PO BID PRN (Reason: pain) 10 Days Qty: 20 0RF olmesartan 40 mg tablet 40 mg PO DAILY 0RF melatonin 5 mg capsule PO 0RF amlodipine 10 mg tablet 10 mg PO DAILY Qty: 90 1RF Bevespi Aerosphere 9-4.8 mcg HFA aerosol inhaler 2 puff inhalation Q12H 30 Days Qty: 10.7 11RF azelastine 205.5 mcg (0.15 %) spray,non-aerosol 2 spray intranasal BID 30 Days Qty: 30 11RF Rx Instructions: administer into each nostril latanoprost 0.005 % drops 1 drp ophthalmic (eye) DAILY 0RF Rx Instructions: as directed Trelegy Ellipta 200-62.5-25 mcg blister with device 1 inh inhalation DAILY 30 Days Qty: 60 12RF prednisone 10 mg tablet See Rx Instructions PO DAILY 18 Days Qty: 63 0RF Rx Instructions: PO daily; Take 6 tabs daily x 3 days, then 5 tabs x 3 days, then 4 tabs x 3 days, then 3 tabs x 3 days, then 2 tabs daily x 3 days, then 1 tab x 3 days to complete. azithromycin 500 mg tablet 500 mg PO DAILY 3 Days Qty: 3 0RF benzonatate 200 mg capsule 200 mg PO BID PRN (Reason: cough) 30 Days Qty: 30 0RF Adult Wal-Tussin DM Max 10-200 mg/5 mL liquid 10 ml PO Q6H PRN (Reason: cough) Qty: 300 4RF Referrals: Oliverio Emerson MD [Primary Care Provider] - (Medication adjustment for diabetes) Alexis Oates MD [Physician] - (Prednisone, possibly interfering with diabetic medications.) Interventions: ED Discharge Assessment Last Done: 07/13/21 22:22 Discharge Date/Time: 07/13/21 22:24
[2021-07-13] MEDS: Insulin Lispro 100 UNIT/ML 3 ML VIAL 7 UNIT SUBCUT (22:15)
== END 2021-07-13 22:24 | disposition home or self-care (01) ==
PROVIDERS: Emergency Provider Emergency Medicine; PCP Internal Medicine
DX: U07.1 COVID-19 (principal); R07.89 Other chest pain; E11.65 Type 2 diabetes mellitus with hyperglycemia; I10 Essential (primary) hypertension; J45.909 Unspecified asthma, uncomplicated
CPT/HCPCS: 36415; 71045; 80048; 84484; 85025; 93005; 99283; 99284

== ENCOUNTER → 2021-07-21 08:47 | Outpatient (BNVA) | payer OTHER, SELFPAY | PROVIDERS: PCP Internal Medicine; Referring Provider Internal Medicine; Visit Provider Nurse Practitioner Family | DX: Z13.89 Encounter for screening for other disorder (principal) | CPT/HCPCS: 99211 ==

== ENCOUNTER → 2021-09-09 10:36 | Outpatient (BNVA) | payer OTHER, SELFPAY | PROVIDERS: PCP Internal Medicine; Visit Provider Hospitalist | DX: G47.33 Obstructive sleep apnea (adult) (pediatric) (principal); J38.5 Laryngeal spasm; J45.41 Moderate persistent asthma with (acute) exacerbation; J44.9 Chronic obstructive pulmonary disease, unspecified; K44.9 Diaphragmatic hernia without obstruction or gangrene | CPT/HCPCS: 99212 ==

== ENCOUNTER → 2021-09-17 10:07 | Outpatient (BNVA) | payer OTHER, SELFPAY | PROVIDERS: PCP Internal Medicine; Visit Provider Hospitalist | DX: J44.9 Chronic obstructive pulmonary disease, unspecified (principal) | CPT/HCPCS: 94618; 99211 ==

== ENCOUNTER → 2021-10-06 15:16 | Outpatient (BNVA) | payer OTHER, SELFPAY | PROVIDERS: PCP Internal Medicine; Visit Provider Anesthesiology | DX: M47.816 Spondylosis without myelopathy or radiculopathy, lumbar region (principal); M43.16 Spondylolisthesis, lumbar region; G89.4 Chronic pain syndrome; M47.817 Spondylosis without myelopathy or radiculopathy, lumbosacral region; E11.9 Type 2 diabetes mellitus without complications; Z79.4 Long term (current) use of insulin | CPT/HCPCS: 99202 ==

== ENCOUNTER → 2021-11-02 13:43 | Outpatient (BNVA) | payer OTHER, SELFPAY | PROVIDERS: PCP Internal Medicine; Visit Provider Internal Medicine Endocrinology, Diabetes & Metabolism | DX: E11.65 Type 2 diabetes mellitus with hyperglycemia (principal); Z79.4 Long term (current) use of insulin | CPT/HCPCS: 82947; 99202 ==

== ENCOUNTER → 2021-11-10 09:14 | Outpatient (BNVA) | payer OTHER, SELFPAY | PROVIDERS: PCP Internal Medicine; Visit Provider Registered Nurse Diabetes Educator | DX: E11.9 Type 2 diabetes mellitus without complications (principal); Z79.4 Long term (current) use of insulin | CPT/HCPCS: 99211 ==

== ENCOUNTER → 2021-11-19 09:39 | Outpatient (BNVA) | payer OTHER, SELFPAY | PROVIDERS: PCP Internal Medicine; Visit Provider Hospitalist | DX: G47.33 Obstructive sleep apnea (adult) (pediatric) (principal); J45.41 Moderate persistent asthma with (acute) exacerbation; J38.5 Laryngeal spasm; K44.9 Diaphragmatic hernia without obstruction or gangrene; J44.9 Chronic obstructive pulmonary disease, unspecified | CPT/HCPCS: 99212 ==

== ENCOUNTER 2021-11-23 06:26 | Outpatient (REF) | payer OTHER, SELFPAY ==
--- NOTE | ~2021-11-23 | FL_ITS ---
EXAMINATION: XR FLUOROSCOPY WITH IMAGES CLINICAL INFORMATION: M47.816 - Spondylosis without myelopathy or radiculopathy, lumbar region COMPARISON: Radiographs lumbar spine 08/21/2020 TECHNIQUE: Fluoroscopy performed by Dr. Tyson Vora. Fluoroscopy time: 0.3 minutes. Cumulative Dose: 7.18 mGy. DAP: 1.95 Gy-cm2. Images: 4. FINDINGS: There are spinal needles overlying the outer left L2, L3, L4, and L5 neural foramen. There are prominent degenerative disc changes again noted at L4-L5 with disc narrowing and endplate sclerosis and vertebral spurring. FL/FL guidance in treatment room IMPRESSION: Fluoroscopy for pain management procedures.
== END 2021-11-23 06:27 | disposition home or self-care (01) ==
LOC: HO.RADIR 06:26
PROVIDERS: Visit Provider Anesthesiology
DX: M47.816 Spondylosis without myelopathy or radiculopathy, lumbar region (principal); M43.16 Spondylolisthesis, lumbar region; M47.817 Spondylosis without myelopathy or radiculopathy, lumbosacral region; G89.4 Chronic pain syndrome
CPT/HCPCS: 64493; 64494; 64495; J2795; J3300

== ENCOUNTER → 2021-11-29 08:07 | Outpatient (BNVA) | payer OTHER, SELFPAY | PROVIDERS: PCP Internal Medicine; Visit Provider Anesthesiology | DX: M47.816 Spondylosis without myelopathy or radiculopathy, lumbar region (principal); M43.16 Spondylolisthesis, lumbar region; G89.4 Chronic pain syndrome; M47.817 Spondylosis without myelopathy or radiculopathy, lumbosacral region | CPT/HCPCS: Q3014 ==

== ENCOUNTER 2021-12-13 09:08 | Outpatient (REF) | payer OTHER, SELFPAY ==
--- NOTE | ~2021-12-13 | XR_ITS ---
EXAMINATION: XR WRIST, RIGHT CLINICAL INFORMATION: Right wrist pain. COMPARISON: 03/03/2014. TECHNIQUE: PA, lateral, oblique, and scaphoid views of the right wrist. FINDINGS: Again seen is a chronic nonunited fracture of the scaphoid waist. There is marked sclerosis of the proximal pole fragment, similar to prior, potentially due to osteonecrosis. Since the prior study, there has been progressive loss of normal morphology of the proximal carpal row with slight widening of the scapholunate interval, proximal migration of the capitate, joint space narrowing between the capitate and and scaphoid and the capitate and lunate and significant progression of the radiocarpal arthritis, consistent with progressive scaphoid nonunion advanced collapse changes (SNAC wrist). Mild osteoarthritis is evident at the triscaphe and 1st CMC joints, similar to prior. Chronic osseous fragments are evident at the palmar and dorsal aspect of the proximal carpal row. XR/XR wrist RT min 3V IMPRESSION: Progressive degeneration at the radiocarpal and intercarpal joints around the scaphoid nonunion, consistent with progressive scaphoid nonunion advanced collapse changes (SNAC wrist).
--- NOTE | ~2021-12-13 | FL_ITS ---
EXAMINATION: FL BARIUM SWALLOW CLINICAL INFORMATION: Dysphagia COMPARISON: None TECHNIQUE: Barium swallow examination is performed using fluoroscopic evaluation in addition to multiple fluoroscopic spot views. The patient is imaged both upright and prone and using both thick and thin sulfate along with effervescent granules. Barium tablet was also administered. Fluoroscopy time: 0.9 minutes DAP: 9.2 Gycm2 Images: 39 FINDINGS: The swallowing mechanism is normal. No aspiration or penetration is seen. There is gastroesophageal reflux. The esophagus is otherwise normal. Esophageal motility is normal. No mucosal irregularity, mass, stricture or hernia is seen. The barium tablet passed freely into the stomach. FL/FL barium swallow IMPRESSION: Gastroesophageal reflux. Otherwise unremarkable exam.
[2021-12-13 10:35] LABS: MANUAL DIFF FLAG NO
[2021-12-13 10:59] LABS: Basophils Absolute Auto 0.1 X10*3/uL (0.0-0.2); Basophils Percent Auto 0.8 % (0-2); Eosinophils Absolute Auto 0.2 X10*3/uL (0.0-0.4); Eosinophils Percent Auto 2.6 % (0-4); Hematocrit 44.1 % (42.0-52.0); Hemoglobin 14.3 g/dl (14.0-18.0); Imm Gran Abs Auto 0.03 X10*3/uL (0.00-0.03); Imm Gran Pct Auto 0.4 % (0.0-0.4); Lymphocytes Absolute Auto 2.2 X10*3/uL (1.2-4.9); Lymphocytes Percent Auto 28.7 % (20-40); Mean Corpuscular HGB Conc 32.4 g/dl (31.0-36.0); Mean Corpuscular Hemoglobin 28.8 pg (27.0-33.0); Mean Corpuscular Volume 88.9 fL (80.0-98.0); Monocytes Absolute Auto 0.7 X10*3/uL (0.1-1.2); Monocytes Percent Auto 8.6 % (2-11); Neutrophils Absolute Auto 4.5 x10*3/uL (2.0-8.3); Neutrophils Percent Auto 58.9 % (45-73); Platelet Count 257 X10*3/uL (160-400); Red Blood Count 4.96 X10*6/uL (4.60-5.80); Red Cell Distribution Width 12.6 % (11.0-16.0); White Blood Count 7.7 X10*3/uL (4.8-10.8)
[2021-12-13 11:05] LABS: Estimated Average Glucose 203 mg/dL; Hemoglobin A1c % 8.7 %
[2021-12-13 11:27] LABS: Alanine Aminotransferase 24 U/L (0-40); Albumin Level 4.2 g/dL (3.5-5.0); Alkaline Phosphatase 63 U/L (39-117); Anion Gap 15 (12-20); Aspartate Amino Transferase 14 U/L (5-37); Bilirubin Total 0.5 mg/dL (0.0-1.0); Blood Urea Nitrogen 16 mg/dL (9-16); Calcium 9.1 mg/dL (8.4-10.2); Carbon Dioxide 24 mmol/L (22-29); Chloride 105 mmol/L (96-108); Cholesterol 184 mg/dL; Estimated Glomerular Filt Rate > 60; Glucose Fasting 182 mg/dL (60-99); HDL Cholesterol 34 mg/dL; LDL Cholesterol Calculated 131 mg/dl; Potassium 4.4 mmol/L (3.3-5.1); Sodium 140 mmol/L (135-145); Total Protein 6.6 g/dL (6.5-8.0); Triglycerides 99 mg/dL
[2021-12-13 11:39] LABS: TSH reflex Free T4 1.73 uIU/mL (0.32-4.0); Vitamin D 25-OH Total 29.3 ng/mL (>30)
[2021-12-13 11:39] LABS: Appearance Urine Clear; Color Urine Yellow; Glucose Urine UA Negative (Negative); Leukocyte Esterase Urine Negative (Negative); Nitrite Urine Negative (Negative); PH 5.5 (5.0-9.0); Specific Gravity - Urine 1.025 (1.005-1.025); Urine Blood Negative (Negative); Urine Ketones Negative (Negative); Urine Protein Negative (Neg-Trace)
[2021-12-13 12:03] LABS: Folate 13.6 ng/mL (> or = 4.0); Vitamin B12 337 pg/mL (200-900)
[2021-12-13 12:49] LABS: Creatinine Urine 205.26 mg/dL; Microalbum/Creatinine Ratio Ur 2.4 ug/mg cr
== END 2021-12-13 09:09 | disposition home or self-care (01) ==
LOC: HO.XRAY 09:08
PROVIDERS: PCP Internal Medicine; Visit Provider Internal Medicine
DX: R13.10 Dysphagia, unspecified (principal); M25.431 Effusion, right wrist; M25.531 Pain in right wrist; I10 Essential (primary) hypertension; E11.9 Type 2 diabetes mellitus without complications; E55.9 Vitamin D deficiency, unspecified; E78.00 Pure hypercholesterolemia, unspecified; E53.8 Deficiency of other specified B group vitamins
CPT/HCPCS: 36415; 73110; 74220; 80053; 80061; 81003; 82043; 82306; 82607; 82746; 83036; 84443; 85025

== ENCOUNTER 2021-12-28 06:03 | Outpatient (REF) | payer OTHER, SELFPAY ==
--- NOTE | ~2021-12-28 | FL_ITS ---
EXAMINATION: XR FLUOROSCOPY WITH IMAGES CLINICAL INFORMATION: M47.817 - Spondylosis without myelopathy or radiculopathy, lumbosacral COMPARISON: Radiographs lumbar spine 08/21/2020 TECHNIQUE: Fluoroscopy performed by Dr. Tyson Vora. Fluoroscopy time: 0.5 minutes. Cumulative Dose: 13.7 mGy. DAP: 3.75 Gy-cm2. Images: 4. FINDINGS: There are spinal needles overlying the outer left L2, L3, L4, and L5 neural foramen. There is trace contrast in the nerve sheaths and some early transforaminal epidural extension. No visible vascular communication. There are prominent degenerative disc changes again noted L4-L5 with disc narrowing and vertebral spurring. FL/FL guidance in treatment room IMPRESSION: Fluoroscopy for pain management procedures.
== END 2021-12-28 06:04 | disposition home or self-care (01) ==
LOC: CF 06:03
PROVIDERS: Visit Provider Anesthesiology
DX: M47.816 Spondylosis without myelopathy or radiculopathy, lumbar region (principal); M47.817 Spondylosis without myelopathy or radiculopathy, lumbosacral region; M43.16 Spondylolisthesis, lumbar region; G89.4 Chronic pain syndrome
CPT/HCPCS: 64493; 64494; A9585; J2795; J3300

== ENCOUNTER → 2022-01-03 14:01 | Outpatient (BNVA) | payer OTHER, SELFPAY | PROVIDERS: PCP Internal Medicine; Visit Provider Anesthesiology | DX: M47.817 Spondylosis without myelopathy or radiculopathy, lumbosacral region (principal); M47.816 Spondylosis without myelopathy or radiculopathy, lumbar region; M43.16 Spondylolisthesis, lumbar region; G89.4 Chronic pain syndrome | CPT/HCPCS: Q3014 ==

== ENCOUNTER 2022-01-20 11:53 | Outpatient (REF) | payer OTHER, SELFPAY ==
--- NOTE | 2022-01-20 09:00 | EMG_ITS ---
Left tibial and peroneal motor studies were performed. Left superficial peroneal and sural sensory studies were performed. Tibial H-reflex was obtained. Paraspinal muscles were tested with a needle. IMPRESSION: Mild to moderate axonal sensory motor peripheral neuropathy. MD ROMELIA Byrne/FLEX / [phone]
== END 2022-01-20 11:54 | disposition home or self-care (01) ==
LOC: HO.NEURO 11:53
PROVIDERS: PCP Internal Medicine; Visit Provider Internal Medicine
DX: R20.2 Paresthesia of skin (principal)
CPT/HCPCS: 95886; 95909

== ENCOUNTER 2022-01-24 08:43 | Outpatient (REF) | payer OTHER, SELFPAY ==
--- NOTE | ~2022-01-24 | MR_ITS ---
EXAMINATION: MR LUMBAR SPINE WITHOUT CONTRAST CLINICAL INFORMATION: Spondylosis without myelopathy or radiculopathy. COMPARISON: Lumbar spine MRI 11/12/2008. TECHNIQUE: MRI of the lumbar spine was obtained using routine sequences without contrast. FINDINGS: The lumbar vertebral bodies maintain normal heights. There is grade 1 anterolisthesis of L4 on L5 related to L4 pars defects with severe disc height loss and chronic degenerative endplate changes. The L4-L5 level appears stable compared with 2008. Apart from L4-L5, the disc heights are preserved. No bone marrow edema is seen. The distal spinal cord appears normal. The conus medullaris terminates normally at the L1 level. The extraspinal soft tissues appear normal. SPINAL LEVELS: L1-L2: Progressive small right paracentral protrusion. No spinal canal or neural foraminal stenosis. L2-L3: No posterior disc abnormality. No spinal canal or neural foraminal stenosis. L3-L4: No posterior disc abnormality. Mild to moderate facet arthropathy. No spinal canal or neural foraminal stenosis. L4-L5: Grade 1 anterolisthesis with severe disc height loss and posterior unroofing of the disc with underlying diffuse disc bulging and severe facet arthropathy. Unchanged severe bilateral neural foraminal stenosis with significant compression of both exiting L4 nerve roots. No spinal canal stenosis. L5-S1: Disc bulging with moderate facet arthropathy. No spinal canal or neural foraminal stenosis. MR/MR lumbar spine wo con IMPRESSION: Redemonstration of grade 1 anterolisthesis of L4 on L5 related to L4 pars defects with associated severe disc height loss and chronic degenerative endplate changes. Stable severe bilateral neural foraminal stenosis with significant compression of both exiting L4 nerve roots. No new disc herniation or nerve root compression is seen at the remaining lumbar levels.
== END 2022-01-24 08:44 | disposition home or self-care (01) ==
LOC: HO.MRI 08:43
PROVIDERS: Visit Provider Anesthesiology
DX: G89.4 Chronic pain syndrome (principal); M47.817 Spondylosis without myelopathy or radiculopathy, lumbosacral region; M47.816 Spondylosis without myelopathy or radiculopathy, lumbar region; M43.16 Spondylolisthesis, lumbar region
CPT/HCPCS: 72148

== ENCOUNTER → 2022-01-31 09:10 | Outpatient (BNVA) | payer OTHER, SELFPAY | PROVIDERS: PCP Internal Medicine; Visit Provider Hospitalist | DX: G47.33 Obstructive sleep apnea (adult) (pediatric) (principal); J45.41 Moderate persistent asthma with (acute) exacerbation; J38.5 Laryngeal spasm; J44.9 Chronic obstructive pulmonary disease, unspecified; K44.9 Diaphragmatic hernia without obstruction or gangrene | CPT/HCPCS: 99212 ==

== ENCOUNTER → 2022-02-02 10:40 | Outpatient (BNVA) | payer OTHER, SELFPAY | PROVIDERS: PCP Internal Medicine; Visit Provider Anesthesiology | DX: M47.817 Spondylosis without myelopathy or radiculopathy, lumbosacral region (principal); M43.16 Spondylolisthesis, lumbar region; M47.816 Spondylosis without myelopathy or radiculopathy, lumbar region; G89.4 Chronic pain syndrome | CPT/HCPCS: Q3014 ==

== ENCOUNTER 2022-02-09 09:43 | Emergency (ER) | payer OTHER, SELFPAY ==
--- NOTE | ~2022-02-09 | XR_ITS ---
EXAMINATION: XR CHEST CLINICAL INFORMATION: Shortness of breath, chest pain. COMPARISON: 07/13/2021 chest radiograph. TECHNIQUE: 2 views of the chest were obtained. FINDINGS: No significant abnormality is noted involving the heart, lungs, mediastinum, bony thorax or soft tissues. XR/XR chest 2V IMPRESSION: No acute cardiopulmonary process.
--- NOTE | ~2022-02-09 | CT_ITS ---
EXAMINATION: CT HEAD WITHOUT CONTRAST CLINICAL INFORMATION: Dizziness COMPARISON: None TECHNIQUE: Contiguous axial imaging was performed from the skull base to vertex without intravenous administration of contrast. This CT examination was performed using dose optimization techniques as appropriate, variously including the following: *Automated exposure control *Adjustment of mA and/or kV according to patient size (this includes techniques or standardized protocols for targeted exams where dose is matched to indication/reason for exam; i.e. extremities or head) *Use of iterative reconstruction technique DLP: 727 mGy-cm FINDINGS: There is no intra or extra-axial fluid collection or hemorrhage, mass or mass effect. Calvarium intact. CT/CT head/brain wo IV con IMPRESSION: No acute intracranial pathology.
--- NOTE | ~2022-02-09 | MR_ITS ---
EXAMINATION: MR BRAIN WITHOUT CONTRAST CLINICAL INFORMATION: Concern for cerebellar stroke/infarct. COMPARISON: Head CT 02/09/2022.. TECHNIQUE: Multiplanar, multisequence imaging of the brain was performed without intravenous contrast. FINDINGS: There is no acute infarction, mass, hemorrhage, or extra-axial collection. The ventricles, sulci, and basilar cisterns are normal in size and configuration. Apart from a punctate focus of nonspecific T2 hyperintensity within the right parietal lobe, the brain parenchyma signal appears normal. The flow voids of the major intracranial arteries appear intact. The bones and extracranial soft tissues are unremarkable. A small amount of mastoid fluid on the right. Mild degenerative changes are seen in the upper cervical spine. MR/MR head/brain wo con IMPRESSION: No acute infarct, mass lesion, intracranial hemorrhage, or evidence of hydrocephalus. Specifically, no evidence of cerebellar infarct or other posterior fossa abnormality.
[2022-02-09 09:44] VITALS: BP 187/93; PULSE 74; RESP 20; TEMP 36.6; O2SAT 95; BMI 36.8
--- NOTE | 2022-02-09 09:48 | ED_ITS ---
HPI - General Adult General Chief complaint: General Medical Stated complaint: L Side Facial Numbness Headache Time Seen by Provider: 02/09/22 09:47 Source: patient Mode of arrival: ambulatory Limitations: no limitations History of Present Illness HPI narrative: Pt is a 56 yo assigned male at and PMHx significant for diabetes, HTN, hyperlipidemia, and asthma presents w/ 3 days of intermittent room spinning and left-sided facial numbness. He reports an associated click feeling in his head just prior to the first episode. He endorses an associated headache. He denies any dark or bloody stools. He denies any changes to his vision, hearing, taste, or sense of smell. He reports that he has tried Advil for his headache without relief. He denies any recent hx his of trauma or falls. He denies recent illness symptoms such as cough or fevers. He denies use of drugs or alcohol. Onset (ago): day(s) Location: head Radiation: non-radiation Severity: mild Severity scale (1-10): 3 Quality: aching Pain Consistency: intermittent Relieving factors: none Exacerbating factors: none Associated symptoms: headaches Treatments prior to arrival: NSAID Related Data Home Medications Medication Instructions Recorded Confirmed aspirin 81 mg tablet,delayed 81 mg PO DAILY 02/18/20 12/14/21 release atorvastatin 80 mg tablet (Lipitor) 80 mg PO DAILY 02/18/20 12/14/21 fexofenadine 180 mg tablet 180 mg PO DAILY 02/18/20 12/14/21 CPAP (CPAP Machine/Device) 11/19/21 12/14/21 Previous Rx's Medication Instructions Recorded naproxen 500 mg tablet 500 mg PO BID PRN pain 10 days #20 02/19/20 tabs nebulizer accessories #1 ea 03/04/20 amlodipine 10 mg tablet 10 mg PO DAILY #90 tabs 05/11/20 glycopyrrolate 9 mcg-formoterol 2 puff inhalation Q12H 30 days 07/16/20 4.8 mcg HFA aerosol inhaler #10.7 grams (Bevespi Aerosphere) budesonide 0.5 mg/2 mL suspension 0.5 mg (2 mL) inhalation BID 30 11/17/20 for nebulization days #120 mL mupirocin 2 % topical ointment 1 appl topical TID PRN infection 10/27/21 10 days #66 grams fluticasone propionate 110 2 puff inhalation BID 30 days #12 01/27/21 mcg/actuation HFA aerosol inhaler grams (Flovent HFA) cholecalciferol (vitamin D3) 25 75 mcg PO DAILY #30 tabs 04/13/21 mcg (1,000 unit) tablet benzonatate 200 mg capsule 200 mg PO BID PRN cough 30 days 06/10/21 #30 caps dextromethorphan-guaifenesin 10 10 ml PO Q6H PRN cough 14 days 06/10/21 mg-100 mg/5 mL oral syrup (Adult #500 mL Tussin DM) insulin glargine 100 unit/mL (3 10 unit (0.1 mL) subcut QPM #15 mL 07/29/21 mL) subcutaneous pen (Lantus Solostar U-100 Insulin) miscellaneous medical supply 1 ea miscellaneous DAILY #1 ea 07/29/21 miscellaneous medical supply 1 ea miscellaneous DAILY #1 ea 07/29/21 PULSE OXIMETER #1 ea 08/26/21 blood pressure monitor #1 ea 08/26/21 azithromycin 250 mg tablet 250 mg PO 3XW 28 days #12 tabs 09/09/21 prednisone 10 mg tablet See Rx Instructions PO DAILY 18 09/09/21 days #63 tabs HIP BRACE (left hip) #1 ea 09/28/21 THERMOMETER #1 ea 09/28/21 blood sugar diagnostic (FreeStyle 1 strip miscellaneous TID for 11/02/21 Lite Strips) diabetes mellitus #450 strips dulaglutide 1.5 mg/0.5 mL 1.5 mg (0.5 mL) subcut QWEEK #2 mL 11/02/21 subcutaneous pen injector (Trulicity) sildenafil 50 mg tablet 50 mg PO DAILY PRN sexual activity 11/03/21 #10 tabs amoxicillin 875 mg-potassium 1 tab PO BID 10 days #20 tabs 11/19/21 clavulanate 125 mg tablet ipratropium 0.5 mg-albuterol 3 mg 3 ml inhalation Q6H PRN shortness 11/19/21 (2.5 mg base)/3 mL nebulization of breath or wheezing #180 mL soln azelastine 205.5 mcg (0.15 %) 2 spray intranasal BID 30 days #30 11/24/21 nasal spray mL blood-glucose meter (FreeStyle #1 ea 11/24/21 Lite Meter kit) clotrimazole-betamethasone 1 1 appl topical BID PRN rash #45 11/24/21 %-0.05 % topical cream grams ezetimibe 10 mg tablet (Zetia) 10 mg PO DAILY #90 tabs 11/24/21 fluticasone fur. 200 mcg-umeclid 1 inh inhalation DAILY 30 days #60 11/24/21 62.5 mcg-vilant 25 mcg ea inhalat.powder (Trelegy Ellipta) glipizide 5 mg tablet, extended 5 mg PO DAILY #90 tabs 11/24/21 release 24 hr hydrochlorothiazide 25 mg tablet 25 mg PO DAILY #90 tabs 11/24/21 lancets 28 gauge (FreeStyle 28 gauge topical TID #300 ea 11/24/21 Lancets) latanoprost 0.005 % eye drops 1 drp ophthalmic (eye) DAILY #7.5 11/24/21 mL lorazepam 0.5 mg tablet See Rx Instructions .Route 11/24/21 .COMPLEX PRN anxiety 30 days #60 tabs melatonin 5 mg capsule 10 mg PO BEDTIME #30 caps 11/24/21 metoprolol succinate 50 mg 100 mg PO DAILY 90 days #180 tabs 11/24/21 tablet,extended release 24 hr montelukast 10 mg tablet 10 mg PO QPM #90 tabs 11/24/21 olmesartan 40 mg tablet 40 mg PO DAILY #90 tabs 11/24/21 gabapentin 400 mg capsule See Rx Instructions PO .COMPLEX 30 11/25/21 days #120 caps dexlansoprazole 60 mg 60 mg PO DAILY 90 days #90 caps 12/28/21 capsule,biphase delayed release (Dexilant) pen needle, diabetic 31 gauge x #50 ea 01/10/22 3/16 (BD Ultra-Fine Mini Pen Needle) albuterol sulfate 2.5 mg/3 mL 2.5 mg (3 mL) continuous 01/11/22 (0.083 %) solution for nebulization nebulization QID PRN shortness of breath or wheezing 30 days #480 mL COMPRESSION STOCKINGS #3 ea 01/12/22 albuterol sulfate 90 mcg/actuation 2 puff PO QID PRN shortness of 01/18/22 aerosol inhaler (Ventolin HFA) breath or wheezing 90 days #3 multiple units alcohol swabs (BD Alcohol Swabs) 1 pad topical TID for diabetes 01/18/22 mellitus #300 pad hydralazine 25 mg tablet 25 mg PO BID hypertension 30 days 01/25/22 #180 tabs white petrolatum-mineral oil 56.8 1 appl ophthalmic (eye) BEDTIME 01/31/22 %-42.5 % eye ointment (Refresh PRN dry eyes 30 days #7 grams Lacri-Lube) zolpidem 10 mg tablet 10 mg PO BEDTIME PRN insomnia 30 01/31/22 days #30 tabs Allergies Allergy/AdvReac Type Severity Reaction Status Date / Time iodine [Iodine] Allergy Severe THROAT Verified 02/02/22 10:41 SWELLING lisinopril Allergy Severe Rash Verified 02/02/22 10:41 metformin Allergy Severe diarrhea Verified 02/02/22 10:41 meperidine [From Demerol] Allergy Mild RASH Verified 02/02/22 10:41 oxycodone [From Percocet] AdvReac Mild MOUTH Verified 02/02/22 10:41 DRYNESS,RASH Mercury Detox Allergy Severe Close Uncoded 02/02/22 10:41 Throat Shellfish Allergy Severe THROAT Uncoded 02/02/22 10:41 SWELLING Review of Systems Constitutional: Constitutional: Reports no additional constitutional complaints, Denies chills, Denies fever(s), Reports headache(s) and Denies night sweats Eyes: Eyes: Reports no additional eye complaints, Denies blurry vision, Denies change in vision, Denies diplopia, Denies eye discharge and Denies loss of vision ENT: Reports dizziness, Reports headache(s) and Reports other (let-sided facial numbness) Cardiovascular: Cardiovascular: Reports no additional cardiovascular complaints, Reports lightheadedness, Denies Loss of Consciousness and Denies dyspnea Respiratory: Respiratory: Denies dyspnea Gastrointestinal: Gastrointestinal: Reports no additional gastrointestinal complaints, Denies abdominal pain, Denies melena, Denies hematochezia, Denies change in bowel habits, Denies change in stool character, Denies vomiting and Denies hematemesis Musculoskeletal: Musculoskeletal: Reports no additional musculoskeletal complaints, Reports numbness and Denies tingling Neurologic: Reports dizziness, Reports headache(s), Denies loss of vision, Reports numbness and Denies tingling Psychiatric: Psychiatric: Reports no additional psychiatric complaints Endocrine: Endocrine: Reports no additional endocrine complaints Hematologic/Lymphatic: Hematologic/Lymphatic: Reports no additional hematologic/lymphatic complaints Allergic/Immunologic: Allergic/Immunologic: Reports no additional allergi c/immunologic complaints [facility] Past Medical History Attestation statement: The following information was validated with the patient. Source: old records reviewed Medical History Anxiety Asthma Asthma-COPD overlap syndrome Benign essential hypertension Bursitis Chronic rhinitis Claustrophobia Diastasis recti Erectile dysfunction GERD (gastroesophageal reflux disease) Hemoptysis Hiatal hernia Insomnia Laryngospasm Low back pain Lumbar degenerative disc disease Major depressive disorder, recurrent Migraine Obesity (BMI 30-39.9) JOSÉ (obstructive sleep apnea) Pure hypercholesterolemia Stasis edema of both lower extremities Type 2 diabetes mellitus with hyperglycemia, without long-term current use of insulin Surgical History History of carpal tunnel surgery History of endoscopy History of nasal surgery Hx of cardiac catheterization Hx of colonoscopy Family History Family History Father No problems noted. Mother Chronic kidney disease (CKD) Heart attack Other Mental health problem Social History Social History Housing: House Alcohol intake: never Patient Tobacco Use Status: Never used Tobacco e-Cigarette/Vaping Use: Never Used Second Hand Smoke Exposure: Yes Advance Directives: No service: No Current occupational status: disabled Cognitive needs: No Hearing needs: No Vision needs: No Physical Exam ED Vital Signs: Vital Signs - 24 hr 02/09/22 09:44 02/09/22 10:56 02/09/22 11:01 Temperature 97.9 F 98.2 F Pulse Rate 74 76 79 Respiratory Rate 20 18 16 Blood Pressure 187/93 H 195/114 H 179/110 H Pulse Oximetry 95 97 96 Oxygen Delivery Method Room Air Room Air Room Air 02/09/22 13:56 Temperature Pulse Rate 78 Respiratory Rate 18 Blood Pressure 171/95 H Pulse Oximetry 98 Oxygen Delivery Method BMI result Body Mass Index 36.8 Const General: healthy appearing Orientation/consciousness: patient oriented x3 Limitations: no limitations HENMT Head: Yes normal to inspection Ears: hearing grossly normal bilaterally Face and sinus: Yes normal facial exam and Yes other (symmetrical sensation noted) Eyes General: appearance normal, both eyes and all related structures Conjunctivae: conjunctivae normal Pupils: Equal, round and reactive pupils present EOM: No Nystagmus present Chest Chest palpation & inspection: normal inspection of the chest Resp Effort & Inspection: normal respiratory effort and able to speak in complete sentences Auscultation: clear to auscultation bilaterally Cardio Rate: regular rate Rhythm: regular rhythm Heart sounds: S1 normal heart sound present and S2 normal heart sound present Peripheral pulses: Peripheral pulses 2+ throughout GI Inspection: Yes normal to inspection Palpation (GI): Soft to palpation, nontender, no guarding and not rigid Rectal Exam - Male: Yes deferred Skin General skin exam: no rashes or lesions noted Neuro General: patient oriented x3 Cranial nerves: Yes CN's II-XII intact bilaterally, Yes Facial sensation intact/muscles of mastication intact, Yes Intact sense of smell present, Yes Equal, round and reactive pupils present, Yes Ability to bilaterally elevate shoulders present and No Nystagmus present Cognition (Neuro): normal cognition Motor exam (neuro): 5/5 motor strength present throughout Romberg Test: Negative Psych Appearance: grossly normal and well kempt Mental Status: mental status grossly normal Speech and movement: Normal speech and movement present Affect: normal affect Attitude: cooperative Thought process: Normal thought process present Thought content: Normal thought content present Insight: Good insight present (Psych) Judgement: Good judgement present (Psych) NIH Stroke Scale Internal: Initial- Upon Arrival Time: 09:48 Level of Consciousness: Alert Level of Consciousness Questions: Answers both questions correctly Level of Consciousness Commands: Performs both tasks correctly Best Gaze: Normal Visual: No visual loss Facial Palsy: Normal Motor Arm (Right): No drift Motor Arm (Left): No drift Motor Leg (Right): No drift Motor Leg (Left): No drift Limb Ataxia: Absent Sensory: Normal Best Language: No aphasia Dysarthia: Normal Extinction and Inattention: No abnormality Score: 0 Medical Decision Making MDM Narrative Medical decision making narrative: Pt is a 56 yo male assigned at presenting w/ a 3-day hx of dizziness, lig ht-headedness, and facial numbness. He reports his symptoms have been intermittent w/ no known aggravating or alleviating factors. His physical exam was unremarkable w/ a stroke scale of 0, no neurologic deficit, and no nystagmus. Patient's blood work was unremarkable.Patient's EKG was unremarkable. Patient's chest x-ray, head CT, and brain MRI showed no acute process. I explained my physical exam findings as well as all test results to the patient and the patient's son. I answered all questions asked by the patient and the patient's son. I stressed the importance of the patient taking his medication as prescribed. I stressed the importance of the patient following up with his [facility] care provider. I stressed the importance of the patient returning to the emergency department immediately if his symptoms were to worsen or if he were to develop any dizziness, shortness of breath, difficulty breathing, chest pain, blurry vision, loss of vision, nausea, vomiting, abdominal pain, fever, chills, back pain, or any other complaints. Patient and the patient's son verbalized agreement and understanding with this treatment plan and discharge. Medical Records Medical records reviewed: Yes I reviewed the patient's medical records. Lab Data Lab results reviewed: Yes I reviewed the patient's lab results. Result diagrams: 02/09/22 10:26 02/09/22 10:26 Labs: Lab Results 02/09/22 02/09/22 02/09/22 Range/Units 10:26 10:26 10:26 WBC 7.6 (4.8-10.8) X10*3/uL RBC 4.77 (4.60-5.80) X10*6/uL Hgb 13.9 L (14.0-18.0) g/dl Hct 42.3 (42.0-52.0) % MCV 88.7 (80.0-98.0) fL MCH 29.1 (27.0-33.0) pg MCHC 32.9 (31.0-36.0) g/dl RDW 12.2 (11.0-16.0) % Plt Count 238 (160-400) X10*3/uL MPV 10.7 (9.4-12.4) fL Immature Gran % (Auto) 0.5 H (0.0-0.4) % Neut % (Auto) 62.3 (45-73) % Lymph % (Auto) 25.6 (20-40) % [place] % (Auto) 7.1 (2-11) % Eos % (Auto) 3.7 (0-4) % Baso % (Auto) 0.8 (0-2) % Lymph # (Auto) 2.0 (1.2-4.9) X10*3/uL [place] # (Auto) 0.5 (0.1-1.2) X10*3/uL Eos # (Auto) 0.3 (0.0-0.4) X10*3/uL Baso # (Auto) 0.1 (0.0-0.2) X10*3/uL Abs Immat Gran (auto) 0.04 H (0.00-0.03) X10*3/uL Absolute Neuts (auto) 4.8 (2.0-8.3) x10*3/uL Absolute Nucleated RBC 0.000 (0.0-0.012) X10*3/uL Nucleated RBC % (auto) 0.0 (0.0-0.2) /100WBC VBG pH (7.32-7.43) VBG pCO2 mmHg VBG pO2 mmHg VBG HCO3 (22-26) mmol/L VBG O2 Saturation % VBG Base Excess mmol/L Sodium 141 (135-145) mmol/L Potassium 3.8 (3.3-5.1) mmol/L Chloride 104 (96-108) mmol/L Carbon Dioxide 27 (22-29) mmol/L Anion Gap 14 (12-20) BUN 16 (9-16) mg/dL Creatinine 1.02 (0.5-1.4) mg/dL Estim Creat Clear Calc 93.0 Estimated GFR > 60 Random Glucose 178 H D (60-115) mg/dL Calcium 8.8 (8.4-10.2) mg/dL Magnesium 2.1 (1.6-2.6) mg/dL Total Bilirubin 0.4 (0.0-1.0) mg/dL AST 14 (5-37) U/L ALT 22 (0-40) U/L Alkaline Phosphatase 57 (39-117) U/L Ammonia (13-55) umol/L Troponin I High Sens (<3.5-35.0) ng/L B-Natriuretic Peptide 19 (<100) pg/mL Total Protein 6.1 L (6.5-8.0) g/dL Albumin 4.0 (3.5-5.0) g/dL Lipase 46 (8-78) U/L TSH (0.32-4.0) uIU/mL Influenza Type A (PCR) (Negative) Influenza Type B (PCR) (Negative) RSV RNA Qual (PCR) (Negative) SARS-CoV-2 RNA (RT-PCR) (Negative) 02/09/22 02/09/22 02/09/22 Range/Units 10:26 10:26 10:26 WBC (4.8-10.8) X10*3/uL RBC (4.60-5.80) X10*6/uL Hgb (14.0-18.0) g/dl Hct (42.0-52.0) % MCV (80.0-98.0) fL MCH (27.0-33.0) pg MCHC (31.0-36.0) g/dl RDW (11.0-16.0) % Plt Count (160-400) X10*3/uL MPV (9.4-12.4) fL Immature Gran % (Auto) (0.0-0.4) % Neut % (Auto) (45-73) % Lymph % (Auto) (20-40) % [place] % (Auto) (2-11) % Eos % (Auto) (0-4) % Baso % (Auto) (0-2) % Lymph # (Auto) (1.2-4.9) X10*3/uL [place] # (Auto) (0.1-1.2) X10*3/uL Eos # (Auto) (0.0-0.4) X10*3/uL Baso # (Auto) (0.0-0.2) X10*3/uL Abs Immat Gran (auto) (0.00-0.03) X10*3/uL Absolute Neuts (auto) (2.0-8.3) x10*3/uL Absolute Nucleated RBC (0.0-0.012) X10*3/uL Nucleated RBC % (auto) (0.0-0.2) /100WBC VBG pH (7.32-7.43) VBG pCO2 mmHg VBG pO2 mmHg VBG HCO3 (22-26) mmol/L VBG O2 Saturation % VBG Base Excess mmol/L Sodium (135-145) mmol/L Potassium (3.3-5.1) mmol/L Chloride (96-108) mmol/L Carbon Dioxide (22-29) mmol/L Anion Gap (12-20) BUN (9-16) mg/dL Creatinine (0.5-1.4) mg/dL Estim Creat Clear Calc Estimated GFR Random Glucose (60-115) mg/dL Calcium (8.4-10.2) mg/dL Magnesium (1.6-2.6) mg/dL Total Bilirubin (0.0-1.0) mg/dL AST (5-37) U/L ALT (0-40) U/L Alkaline Phosphatase (39-117) U/L Ammonia (13-55) umol/L Troponin I High Sens 4.4 (<3.5-35.0) ng/L B-Natriuretic Peptide (<100) pg/mL Total Protein (6.5-8.0) g/dL Albumin (3.5-5.0) g/dL Lipase (8-78) U/L TSH 1.26 (0.32-4.0) uIU/mL Influenza Type A (PCR) NEGATIVE (Negative) Influenza Type B (PCR) NEGATIVE (Negative) RSV RNA Qual (PCR) NEGATIVE (Negative) SARS-CoV-2 RNA (RT-PCR) NEGATIVE (Negative) 02/09/22 02/09/22 Range/Units 10:28 10:39 WBC (4.8-10.8) X10*3/uL RBC (4.60-5.80) X10*6/uL Hgb (14.0-18.0) g/dl Hct (42.0-52.0) % MCV (80.0-98.0) fL MCH (27.0-33.0) pg MCHC (31.0-36.0) g/dl RDW (11.0-16.0) % Plt Count (160-400) X10*3/uL MPV (9.4-12.4) fL Immature Gran % (Auto) (0.0-0.4) % Neut % (Auto) (45-73) % Lymph % (Auto) (20-40) % [place] % (Auto) (2-11) % Eos % (Auto) (0-4) % Baso % (Auto) (0-2) % Lymph # (Auto) (1.2-4.9) X10*3/uL [place] # (Auto) (0.1-1.2) X10*3/uL Eos # (Auto) (0.0-0.4) X10*3/uL Baso # (Auto) (0.0-0.2) X10*3/uL Abs Immat Gran (auto) (0.00-0.03) X10*3/uL Absolute Neuts (auto) (2.0-8.3) x10*3/uL Absolute Nucleated RBC (0.0-0.012) X10*3/uL Nucleated RBC % (auto) (0.0-0.2) /100WBC VBG pH 7.39 (7.32-7.43) VBG pCO2 37 mmHg VBG pO2 81 mmHg VBG HCO3 23 (22-26) mmol/L VBG O2 Saturation 96.0 % VBG Base Excess -1.1 mmol/L Sodium (135-145) mmol/L Potassium (3.3-5.1) mmol/L Chloride (96-108) mmol/L Carbon Dioxide (22-29) mmol/L Anion Gap (12-20) BUN (9-16) mg/dL Creatinine (0.5-1.4) mg/dL Estim Creat Clear Calc Estimated GFR Random Glucose (60-115) mg/dL Calcium (8.4-10.2) mg/dL Magnesium (1.6-2.6) mg/dL Total Bilirubin (0.0-1.0) mg/dL AST (5-37) U/L ALT (0-40) U/L Alkaline Phosphatase (39-117) U/L Ammonia 30 (13-55) umol/L Troponin I High Sens (<3.5-35.0) ng/L B-Natriuretic Peptide (<100) pg/mL Total Protein (6.5-8.0) g/dL Albumin (3.5-5.0) g/dL Lipase (8-78) U/L TSH (0.32-4.0) uIU/mL Influenza Type A (PCR) (Negative) Influenza Type B (PCR) (Negative) RSV RNA Qual (PCR) (Negative) SARS-CoV-2 RNA (RT-PCR) (Negative) Imaging Data Chest x-ray: Attestation: I personally reviewed and interpreted this imaging study as follows: My impression: No acute process Radiologist's impression: EXAMINATION: XR CHEST CLINICAL INFORMATION: Shortness of breath, chest pain. COMPARISON: 07/13/2021 chest radiograph. TECHNIQUE: 2 views of the chest were obtained. FINDINGS: No significant abnormality is noted involving the heart, lungs, mediastinum, bony thorax or soft tissues. XR/XR chest 2V IMPRESSION: No acute cardiopulmonary process. Dictated By: Axel Mckeon MD Signed By: Electronically signed by Axel Mckeon MD 02/09/22 1125 DD/ 1055 MRI - head: Attestation: I personally reviewed and interpreted this imaging study as follows: My impression: No acute process. Radiologist's impression: EXAMINATION: MR BRAIN WITHOUT CONTRAST CLINICAL INFORMATION: Concern for cerebellar stroke/infarct. COMPARISON: Head CT 02/09/2022.. TECHNIQUE: Multiplanar, multisequence imaging of the brain was performed without intravenous contrast. FINDINGS: There is no acute infarction, mass, hemorrhage, or extra-axial collection.? The ventricles, sulci, and basilar cisterns are normal in size and configuration. Apart from a punctate focus of nonspecific T2 hyperintensity within the right parietal lobe, the brain parenchyma signal appears normal. The flow voids of the major intracranial arteries appear intact. The bones and extracranial soft tissues are unremarkable. A small amount of mastoid fluid on the right. Mild degenerative changes are seen in the upper cervical spine. MR/MR head/brain wo con IMPRESSION: No acute infarct, mass lesion, intracranial hemorrhage, or evidence of hydrocephalus. Specifically, no evidence of cerebellar infarct or other posterior fossa abnormality. Dictated By: MARIA VIZCARRA MD Signed By: Electronically signed by MARIA VIZCARRA MD 02/09/22 1323 DD/ 1258 CT scan - head: Attestation: I personally reviewed and interpreted this imaging study as follows: My impression: No acute process. Radiologist's impression: EXAMINATION: CT HEAD WITHOUT CONTRAST CLINICAL INFORMATION: Dizziness? COMPARISON: None TECHNIQUE: Contiguous axial imaging was performed from the skull base to vertex without intravenous administration of contrast. This CT examination was performed using dose optimization techniques as appropriate, variously including the following: *Automated exposure control *Adjustment of mA and/or kV according to patient size (this includes techniques or standardized protocols for targeted exams where dose is matched to indication/reason for exam; i.e. extremities or head) *Use of iterative reconstruction technique DLP: 727 mGy-cm FINDINGS: There is no intra or extra-axial fluid collection or hemorrhage, mass or mass effect. Calvarium intact. ? CT/CT head/brain wo IV con IMPRESSION: No acute intracranial pathology. Dictated By: Efrain Schwartz MD Signed By: Electronically signed by Efrain Schwartz MD 02/09/22 8915 ECG Data Attestation: I personally reviewed and interpreted this ECG as follows: Prior ECG tracings: available for review Interpretation: Vent. Rate: 073 BPM ? ? Atrial Rate: 073 BPM ?P-R Int: 224 ms? QRS Dur: 144 ms ?QT Int: 412 ms ? ? ? P-R-T Axes: 005 -29 -05 degrees ?QTc Int: 453 ms ? Sinus rhythm with 1st degree A-V block Right bundle branch block Abnormal ECG When compared with ECG of 13-JUL-2021 19:51, OR interval has increased Left anterior fascicular block is no longer Present Borderline criteria for Lateral infarct are no longer Present Minimal criteria for Inferior infarct are no longer Present Critical Care Time Critical Care Time Critical Care Time: Yes Total Critical Care Time: 30 Attestation: I spent 30 minutes of Critical Care Time with this patient. This does not include time spent on separately reported billable procedures. Discharge Plan Discharge Clinical Impression: Dizziness Patient Disposition: Home, Self-Care Instructions: Dizziness (ED) Additional Instructions: Follow up with your primary care provider. Return to the emergency department immediately if your symptoms worsen or if you develop any dizziness, shortness of breath, difficulty breathing, chest pain, blurry vision, loss of vision, nausea, vomiting, abdominal pain, fever, chills, back pain, or any other complaints. Prescriptions: No Action (DME) nebulizer accessories Misc See Rx Instructions .ROUTE .MEDSUPPLY Qty: 1 11RF Rx Instructions: tubing, mask, nebulizer cup, mouth piece budesonide 0.5 mg/2 mL suspension for nebulization 0.5 mg inhalation BID 30 Days Qty: 120 6RF mupirocin 2 % ointment 1 appl topical TID PRN (Reason: infection) 10 Days Qty: 66 2RF Flovent HFA 110 mcg/actuation HFA aerosol inhaler 2 puff inhalation BID 30 Days Qty: 12 11RF cholecalciferol (vitamin D3) 25 mcg (1,000 unit) tablet 75 mcg PO DAILY Qty: 30 2RF dextromethorphan-guaifenesin [Adult Tussin DM] 10-100 mg/5 mL syrup 10 ml PO Q6H PRN (Reason: cough) 14 Days Qty: 500 1RF (DME) blood pressure monitor Kit See Rx Instructions .Route Qty: 1 0RF Rx Instructions: As directed (DME) PULSE OXIMETER See Rx Instructions .Route .MEDSUPPLY Qty: 1 0RF Rx Instructions: As directed (DME) HIP BRACE (left hip) See Rx Instructions .Route .MEDSUPPLY Qty: 1 0RF Rx Instructions: As directed (DME) THERMOMETER See Rx Instructions .Route .MEDSUPPLY Qty: 1 0RF Rx Instructions: As directed sildenafil 50 mg tablet 50 mg PO DAILY PRN (Reason: sexual activity) Qty: 10 1RF ipratropium-albuterol 0.5 mg-3 mg(2.5 mg base)/3 mL solution for nebulization 3 ml inhalation Q6H PRN (Reason: shortness of breath or wheezing) Qty: 180 2RF ezetimibe [Zetia] 10 mg tablet 10 mg PO DAILY Qty: 90 3RF azelastine 205.5 mcg (0.15 %) spray,non-aerosol 2 spray intranasal BID 30 Days Qty: 30 11RF Rx Instructions: administer into each nostril (DME) blood-glucose meter [FreeStyle Lite Meter] Kit See Rx Instructions .Route Qty: 1 0RF Rx Instructions: As directed- To test blood sugar three times a day clotrimazole-betamethasone 1-0.05 % cream 1 appl topical BID PRN (Reason: rash) Qty: 45 5RF Trelegy Ellipta 200-62.5-25 mcg blister with device 1 inh inhalation DAILY 30 Days Qty: 60 12RF glipizide 5 mg tablet extended release 24hr 5 mg PO DAILY Qty: 90 1RF hydrochlorothiazide 25 mg tablet 25 mg PO DAILY Qty: 90 1RF lancets [FreeStyle Lancets] 28 gauge misc 28 gauge topical TID Qty: 300 11RF latanoprost 0.005 % drops 1 drp ophthalmic (eye) DAILY Qty: 7.5 3RF Rx Instructions: as directed lorazepam 0.5 mg tablet See Rx Instructions .ROUTE .COMPLEX PRN (Reason: anxiety) 30 Days Qty: 60 0RF Rx Instructions: 1 to 2 tablets orally twice a day as needed; PRN; metoprolol succinate 50 mg tablet extended release 24 hr 100 mg PO DAILY 90 Days Qty: 180 3RF melatonin 5 mg capsule 10 mg PO BEDTIME Qty: 30 0RF montelukast 10 mg tablet 10 mg PO QPM Qty: 90 3RF olmesartan 40 mg tablet 40 mg PO DAILY Qty: 90 3RF gabapentin 400 mg capsule See Rx Instructions PO .COMPLEX 30 Days Qty: 120 3RF Rx Instructions: Take 1 capsule in the AM, 1 capsule at noon and 2 capsules at night PO; Dexilant 60 mg capsule,biphase delayed releas 60 mg PO DAILY 90 Days Qty: 90 1RF (DME) pen needle, diabetic [BD Ultra-Fine Mini Pen Needle] 31 gauge x 3/16 needle See Rx Instructions miscellaneous .MEDSUPPLY Qty: 50 2RF Rx Instructions: As directed 1x daily. albuterol sulfate 2.5 mg /3 mL (0.083 %) solution for nebulization 2.5 mg continuous nebulization QID PRN (Reason: shortness of breath or wheezing) 30 Days Qty: 480 5RF (DME) COMPRESSION STOCKINGS medium compression See Rx Instructions .Route .MEDSUPPLY Qty: 3 0RF Rx Instructions: As directed alcohol swabs [BD Alcohol Swabs] Pads, Medicated 1 pad topical TID Qty: 300 0RF albuterol sulfate [Ventolin HFA] 90 mcg/actuation HFA aerosol inhaler 2 puff PO QID PRN (Reason: shortness of breath or wheezing) 90 Days Qty: 3 3RF hydralazine 25 mg tablet 25 mg PO BID 30 Days Qty: 180 0RF aspirin 81 mg tablet,delayed release (DR/EC) 81 mg PO DAILY fexofenadine 180 mg tablet 180 mg PO DAILY atorvastatin [Lipitor] 80 mg tablet 80 mg PO DAILY naproxen 500 mg tablet 500 mg PO BID PRN (Reason: pain) 10 Days Qty: 20 0RF Lantus Solostar U-100 Insulin 100 unit/mL (3 mL) insulin pen 10 unit subcut QPM Qty: 15 2RF miscellaneous medical supply Misc 1 ea miscellaneous DAILY Qty: 1 0RF Rx Instructions: pulse oximeter miscellaneous medical supply Misc 1 ea miscellaneous DAILY Qty: 1 0RF Rx Instructions: thermometer amlodipine 10 mg tablet 10 mg PO DAILY Qty: 90 1RF Bevespi Aerosphere 9-4.8 mcg HFA aerosol inhaler 2 puff inhalation Q12H 30 Days Qty: 10.7 11RF Trulicity 1.5 mg/0.5 mL pen injector 1.5 mg subcut QWEEK Qty: 2 4RF FreeStyle Lite Strips Strip 1 strip miscellaneous TID Qty: 450 12RF (DME) CPAP Machine/Device Device See Rx Instructions .Route Rx Instructions: As directed amoxicillin-pot clavulanate 875-125 mg tablet 1 tab PO BID 10 Days Qty: 20 0RF benzonatate 200 mg capsule 200 mg PO BID PRN (Reason: cough) 30 Days Qty: 30 0RF prednisone 10 mg tablet See Rx Instructions PO DAILY 18 Days Qty: 63 0RF Rx Instructions: PO daily; Take 6 tabs daily x 3 days, then 5 tabs x 3 days, then 4 tabs x 3 days, then 3 tabs x 3 days, then 2 tabs daily x 3 days, then 1 tab x 3 days to complete. azithromycin 250 mg tablet 250 mg PO 3XW 28 Days Qty: 12 6RF Rx Instructions: Take 1 tablet on Monday/Monday/Monday zolpidem 10 mg tablet 10 mg PO BEDTIME PRN (Reason: insomnia) 30 Days Qty: 30 3RF Refresh Lacri-Lube 56.8-42.5 % ointment 1 appl ophthalmic (eye) BEDTIME PRN (Reason: dry eyes) 30 Days Qty: 7 4RF Referrals: Oliverio Emerson MD [Primary Care Provider] - Interventions: ED Discharge Assessment Last Done: 02/09/22 13:57 Discharge Date/Time: 02/09/22 13:59 Print Language: Wolof
--- NOTE | 2022-02-09 10:07 | ECG_ITS ---
Test Reason : DIZZINESS Blood Pressure : / mmHG Vent. Rate : 073 BPM Atrial Rate : 073 BPM P-R Int : 224 ms QRS Dur : 144 ms QT Int : 412 ms P-R-T Axes : 005 -29 -05 degrees QTc Int : 453 ms Sinus rhythm with 1st degree A-V block Right bundle branch block Left axis deviation Abnormal ECG When compared with ECG of 13-JUL-2021 19:51, MT interval has increased Left anterior fascicular block is no longer Present Borderline criteria for Lateral infarct are no longer Present Referred By: Roberta Kumar Electronically Signed By:DARIANA WREN MD
[2022-02-09 10:31] LABS: MANUAL DIFF FLAG NO
[2022-02-09 10:32] LABS: Venous Blood Gas Refer to POC result
[2022-02-09 10:34] LABS: VBG Base Excess -1.1 mmol/L; VBG HCO3 23 mmol/L (22-26); VBG pCO2 37 mmHg; VBG pH 7.39 (7.32-7.43); VBG pO2 81 mmHg
[2022-02-09 10:36] LABS: Basophils Absolute Auto 0.1 X10*3/uL (0.0-0.2); Basophils Percent Auto 0.8 % (0-2); Eosinophils Absolute Auto 0.3 X10*3/uL (0.0-0.4); Eosinophils Percent Auto 3.7 % (0-4); Hematocrit 42.3 % (42.0-52.0); Hemoglobin 13.9 g/dl (14.0-18.0); Imm Gran Abs Auto 0.04 X10*3/uL (0.00-0.03); Imm Gran Pct Auto 0.5 % (0.0-0.4); Lymphocytes Percent Auto 25.6 % (20-40); Mean Corpuscular HGB Conc 32.9 g/dl (31.0-36.0); Mean Corpuscular Hemoglobin 29.1 pg (27.0-33.0); Mean Corpuscular Volume 88.7 fL (80.0-98.0); Mean Platelet Volume 10.7 fL (9.4-12.4); Monocytes Absolute Auto 0.5 X10*3/uL (0.1-1.2); Monocytes Percent Auto 7.1 % (2-11); Neutrophils Absolute Auto 4.8 x10*3/uL (2.0-8.3); Neutrophils Percent Auto 62.3 % (45-73); Platelet Count 238 X10*3/uL (160-400); Red Blood Count 4.77 X10*6/uL (4.60-5.80); Red Cell Distribution Width 12.2 % (11.0-16.0); White Blood Count 7.6 X10*3/uL (4.8-10.8)
[2022-02-09 10:56] VITALS: BP 195/114; PULSE 76; RESP 18; TEMP 36.8; O2SAT 97
[2022-02-09 10:58] LABS: Troponin-I High Sensitivity 4.4 ng/L (<3.5-35.0)
[2022-02-09 11:00] LABS: B Type Natriuretic Peptide 19 pg/mL (<100)
[2022-02-09 11:01] VITALS: BP 179/110; PULSE 79; RESP 16; O2SAT 96
[2022-02-09 11:01] LABS: Ammonia 30 umol/L (13-55)
[2022-02-09 11:08] LABS: Alanine Aminotransferase 22 U/L (0-40); Alkaline Phosphatase 57 U/L (39-117); Anion Gap 14 (12-20); Aspartate Amino Transferase 14 U/L (5-37); Bilirubin Total 0.4 mg/dL (0.0-1.0); Blood Urea Nitrogen 16 mg/dL (9-16); Calcium 8.8 mg/dL (8.4-10.2); Carbon Dioxide 27 mmol/L (22-29); Chloride 104 mmol/L (96-108); Estimated Glomerular Filt Rate > 60; Glucose Random 178 mg/dL (60-115); Lipase 46 U/L (8-78); Magnesium 2.1 mg/dL (1.6-2.6); Potassium 3.8 mmol/L (3.3-5.1); Sodium 141 mmol/L (135-145); Total Protein 6.1 g/dL (6.5-8.0)
[2022-02-09 11:18] LABS: TSH reflex Free T4 1.26 uIU/mL (0.32-4.0)
[2022-02-09 11:22] LABS: Influenza A PCR NEGATIVE (Negative); Influenza B PCR NEGATIVE (Negative); Resp Syncy Virus RNA Qual PCR NEGATIVE (Negative); SARS COV2 PCR INHOUSE NEGATIVE (Negative)
--- NOTE | 2022-02-09 11:29 | PC.NURSE ---
nad, skin wpd, sr on monitor, plan for MRI at 1200, provider Roberta aware of bp, provider states the pt will not need to be on the monitor to go to MRI
[2022-02-09 13:56] VITALS: BP 171/95; PULSE 78; RESP 18; O2SAT 98
--- NOTE | 2022-02-09 13:56 | PC.NURSE ---
sr on monitor, skin wpd, no pain, dizziness, pa aware and meclizine not appropriate per PA,
[2022-02-12 22:07] LABS: A. Phagocytphilium DNA,RT-PCR NOT DETECTED (NOT DETECTED); Babesia Microti DNA, RT-PCR NOT DETECTED (NOT DETECTED); Borrelia Miyamotoi,DNA RT-PCR NOT DETECTED (NOT DETECTED); E.Chaffeensis DNA RT-PCR NOT DETECTED (NOT DETECTED); Lyme(Borrelia ssp)DNA RT-PCR NOT DETECTED (NOT DETECTED)
[2022-02-15 09:10] LABS: Source-Tick borne disease BLOOD
== END 2022-02-09 13:59 | disposition home or self-care (01) ==
PROVIDERS: Physician Assistant Medical; Emergency Provider Emergency Medicine; PCP Internal Medicine
DX: R51.9 Headache, unspecified (principal); R06.02 Shortness of breath; R07.89 Other chest pain; R42 Dizziness and giddiness; Z20.822 Contact with and (suspected) exposure to COVID-19; Z79.899 Other long term (current) drug therapy
CPT/HCPCS: 0241U; 36415; 70450; 70551; 71046; 80053; 82140; 82803; 83690; 83735; 83880; 84443; 84484; 85025; 87798; 87801; 93005; 99284; 99285

== ENCOUNTER 2022-02-11 14:45 | Emergency (ER) | payer OTHER, SELFPAY ==
--- NOTE | ~2022-02-11 | CT_ITS ---
EXAMINATION: CT ANGIOGRAM NECK WITH CONTRAST CT ANGIOGRAM BRAIN WITH CONTRAST CLINICAL INFORMATION: Dizziness for 5 days. COMPARISON: Brain MRI 02/09/2022. TECHNIQUE: Test bolus sequences followed by intravenous administration 100 mL of Omnipaque 350. Helical imaging was performed in the axial plane from the thoracic inlet to the skull vertex. Delayed postcontrast imaging of the head was also performed. The data was processed at the medical laboratory technologist workstation for generation of MIP sequences. Angled MIPs and volume rendered reformatted images were also generated at an offline 3D workstation. Stenoses are assessed in accordance with NASCET criteria unless otherwise indicated. This CT examination was performed using dose optimization techniques as appropriate, variously including the following: *Automated exposure control *Adjustment of mA and/or kV according to patient size (this includes techniques or standardized protocols for targeted exams where dose is matched to indication/reason for exam; i.e. extremities or head) *Use of iterative reconstruction technique DLP: 2400 mGy-cm FINDINGS: Head CT: There is no intracranial hemorrhage, large acute infarction, or mass lesion. The ventricles are normal in size and configuration without evidence of hydrocephalus. No abnormal enhancement is seen. The visualized paranasal sinuses and mastoid air cells are clear. Neck CTA: The aortic arch and great vessel origins are patent. Mild atheromatous changes are seen at the carotid bifurcations without associated stenosis. The common and internal carotid arteries are patent. Both vertebral arteries are patent. Head CTA: No large vessel occlusion is seen. The right vertebral artery terminates as a PICA. The basilar artery is patent. Both manufacturing systems engineer are patent. Both posterior communicating arteries are seen. The intracranial internal carotid arteries are patent. The ACAs and MCAs are patent with symmetric collaterals. The dural venous sinuses are patent. Non-vascular findings: Mild degenerative changes are seen in the spine. The upper lungs are clear. The cervical soft tissues are within normal limits. CT/CT angio head neck IMPRESSION: CT HEAD: No intracranial hemorrhage or large acute infarction. CTA NECK: No hemodynamically significant stenosis in the major arteries of the neck. CTA HEAD: No large vessel occlusion or significant stenosis within the intracranial circulation.
[2022-02-11 14:49] VITALS: BP 169/112; PULSE 102; RESP 20; TEMP 36.2; O2SAT 94; BMI 36.8
[2022-02-11 15:08] VITALS: BP 145/100; PULSE 95; RESP 22; O2SAT 96
--- NOTE | 2022-02-11 16:32 | ECG_ITS ---
Test Reason : DIZZINESS Blood Pressure : / mmHG Vent. Rate : 085 BPM Atrial Rate : 085 BPM P-R Int : 204 ms QRS Dur : 140 ms QT Int : 396 ms P-R-T Axes : 020 -21 -07 degrees QTc Int : 471 ms Normal sinus rhythm Right bundle branch block Abnormal ECG When compared with ECG of 09-FEB-2022 10:16, No significant change was found Referred By: Oneal Enciso Electronically Signed By:DARIANA WREN MD
--- NOTE | 2022-02-11 16:40 | ED.DIZZY ---
HPI - Dizziness General Chief Complaint: Dizziness Stated Complaint: dizzy, balance issues Time Seen by Provider: 02/11/22 16:13 Source: patient and family Mode of arrival: ambulatory Limitations: no limitations History of Present Illness HPI Narrative: 56-year-old male with a past medical history of hypertension, diabetes presents to the emergency department today complaining of dizziness. The patient states had sudden onset of dizziness on Monday, which has been fairly constant. Patient states it is sometimes made worse with movements. Also complains of a posterior left-sided headache. No other neurological complaints. No chest pain, shortness of breath, nausea vomiting or diarrhea. MD elicited complaint: dizziness and lightheadedness Onset (ago): day(s) (5) Timing: sudden onset Severity: moderate Description: room spinning , lightheadedness, off-balance and difficulty walking History of similar symptoms: No Exacerbating factors: movement/ambulation, change in body position and position/lying down Relieving factors: nothing Related Data Home Medications Medication Instructions Recorded Confirmed aspirin 81 mg tablet,delayed 81 mg PO DAILY 02/18/20 12/14/21 release atorvastatin 80 mg tablet (Lipitor) 80 mg PO DAILY 02/18/20 12/14/21 fexofenadine 180 mg tablet 180 mg PO DAILY 02/18/20 12/14/21 CPAP (CPAP Machine/Device) 11/19/21 12/14/21 Previous Rx's Medication Instructions Recorded naproxen 500 mg tablet 500 mg PO BID PRN pain 10 days #20 02/19/20 tabs nebulizer accessories #1 ea 03/04/20 amlodipine 10 mg tablet 10 mg PO DAILY #90 tabs 05/11/20 glycopyrrolate 9 mcg-formoterol 2 puff inhalation Q12H 30 days 07/16/20 4.8 mcg HFA aerosol inhaler #10.7 grams (Bevespi Aerosphere) budesonide 0.5 mg/2 mL suspension 0.5 mg (2 mL) inhalation BID 30 11/17/20 for nebulization days #120 mL mupirocin 2 % topical ointment 1 appl topical TID PRN infection 01/13/21 10 days #66 grams fluticasone propionate 110 2 puff inhalation BID 30 days #12 01/27/21 mcg/actuation HFA aerosol inhaler grams (Flovent HFA) cholecalciferol (vitamin D3) 25 75 mcg PO DAILY #30 tabs 04/13/21 mcg (1,000 unit) tablet benzonatate 200 mg capsule 200 mg PO BID PRN cough 30 days 06/10/21 #30 caps dextromethorphan-guaifenesin 10 10 ml PO Q6H PRN cough 14 days 06/10/21 mg-100 mg/5 mL oral syrup (Adult #500 mL Tussin DM) insulin glargine 100 unit/mL (3 10 unit (0.1 mL) subcut QPM #15 mL 07/29/21 mL) subcutaneous pen (Lantus Solostar U-100 Insulin) miscellaneous medical supply 1 ea miscellaneous DAILY #1 ea 07/29/21 miscellaneous medical supply 1 ea miscellaneous DAILY #1 ea 07/29/21 PULSE OXIMETER #1 ea 08/26/21 blood pressure monitor #1 ea 08/26/21 azithromycin 250 mg tablet 250 mg PO 3XW 28 days #12 tabs 09/09/21 prednisone 10 mg tablet See Rx Instructions PO DAILY 18 09/09/21 days #63 tabs HIP BRACE (left hip) #1 ea 09/28/21 THERMOMETER #1 ea 09/28/21 blood sugar diagnostic (FreeStyle 1 strip miscellaneous TID for 11/02/21 Lite Strips) diabetes mellitus #450 strips dulaglutide 1.5 mg/0.5 mL 1.5 mg (0.5 mL) subcut QWEEK #2 mL 11/02/21 subcutaneous pen injector (Trulicity) sildenafil 50 mg tablet 50 mg PO DAILY PRN sexual activity 11/03/21 #10 tabs amoxicillin 875 mg-potassium 1 tab PO BID 10 days #20 tabs 11/19/21 clavulanate 125 mg tablet ipratropium 0.5 mg-albuterol 3 mg 3 ml inhalation Q6H PRN shortness 11/19/21 (2.5 mg base)/3 mL nebulization of breath or wheezing #180 mL soln azelastine 205.5 mcg (0.15 %) 2 spray intranasal BID 30 days #30 11/24/21 nasal spray mL blood-glucose meter (FreeStyle #1 ea 11/24/21 Lite Meter kit) clotrimazole-betamethasone 1 1 appl topical BID PRN rash #45 11/24/21 %-0.05 % topical cream grams ezetimibe 10 mg tablet (Zetia) 10 mg PO DAILY #90 tabs 11/24/21 fluticasone fur. 200 mcg-umeclid 1 inh inhalation DAILY 30 days #60 11/24/21 62.5 mcg-vilant 25 mcg ea inhalat.powder (Trelegy Ellipta) glipizide 5 mg tablet, extended 5 mg PO DAILY #90 tabs 11/24/21 release 24 hr hydrochlorothiazide 25 mg tablet 25 mg PO DAILY #90 tabs 11/24/21 lancets 28 gauge (FreeStyle 28 gauge topical TID #300 ea 11/24/21 Lancets) latanoprost 0.005 % eye drops 1 drp ophthalmic (eye) DAILY #7.5 11/24/21 mL lorazepam 0.5 mg tablet See Rx Instructions .Route 11/24/21 .COMPLEX PRN anxiety 30 days #60 tabs melatonin 5 mg capsule 10 mg PO BEDTIME #30 caps 11/24/21 metoprolol succinate 50 mg 100 mg PO DAILY 90 days #180 tabs 11/24/21 tablet,extended release 24 hr montelukast 10 mg tablet 10 mg PO QPM #90 tabs 11/24/21 olmesartan 40 mg tablet 40 mg PO DAILY #90 tabs 11/24/21 gabapentin 400 mg capsule See Rx Instructions PO .COMPLEX 30 11/25/21 days #120 caps dexlansoprazole 60 mg 60 mg PO DAILY 90 days #90 caps 12/28/21 capsule,biphase delayed release (Dexilant) pen needle, diabetic 31 gauge x #50 ea 01/10/22 3/16 (BD Ultra-Fine Mini Pen Needle) albuterol sulfate 2.5 mg/3 mL 2.5 mg (3 mL) continuous 01/11/22 (0.083 %) solution for nebulization nebulization QID PRN shortness of breath or wheezing 30 days #480 mL COMPRESSION STOCKINGS #3 ea 01/12/22 albuterol sulfate 90 mcg/actuation 2 puff PO QID PRN shortness of 01/18/22 aerosol inhaler (Ventolin HFA) breath or wheezing 90 days #3 multiple units alcohol swabs (BD Alcohol Swabs) 1 pad topical TID for diabetes 01/18/22 mellitus #300 pad hydralazine 25 mg tablet 25 mg PO BID hypertension 30 days 01/25/22 #180 tabs white petrolatum-mineral oil 56.8 1 appl ophthalmic (eye) BEDTIME 01/31/22 %-42.5 % eye ointment (Refresh PRN dry eyes 30 days #7 grams Lacri-Lube) zolpidem 10 mg tablet 10 mg PO BEDTIME PRN insomnia 30 01/31/22 days #30 tabs meclizine 25 mg tablet 25 mg PO TID dizziness #20 tabs 02/12/22 Allergies Allergy/AdvReac Type Severity Reaction Status Date / Time iodine [Iodine] Allergy Severe THROAT Verified 02/02/22 10:41 SWELLING lisinopril Allergy Severe Rash Verified 02/02/22 10:41 metformin Allergy Severe diarrhea Verified 02/02/22 10:41 meperidine [From Demerol] Allergy Mild RASH Verified 02/02/22 10:41 oxycodone [From Percocet] AdvReac Mild MOUTH Verified 02/02/22 10:41 DRYNESS,RASH Mercury Detox Allergy Severe Close Uncoded 02/02/22 10:41 Throat Shellfish Allergy Severe THROAT Uncoded 02/02/22 10:41 SWELLING Review of Systems Constitutional: Constitutional: Denies chills, Denies fever(s), Reports headache(s) and Denies weakness Eyes: Eyes: Reports blurry vision, Denies diplopia and Denies eye discharge ENT: Reports vertigo, Reports dizziness, Reports headache(s), Denies nasal congestion and Denies sore throat Cardiovascular: Cardiovascular: Denies syncope, Denies Loss of Consciousness, Denies palpitations and Denies dyspnea Respiratory: Respiratory: Reports no additional respiratory complaints and Denies dyspnea Gastrointestinal: Gastrointestinal: Reports no additional gastrointestinal complaints Genitourinary: Genitourinary: Reports no additional male genitourinary complaints Musculoskeletal: Musculoskeletal: Reports no additional musculoskeletal complaints Integumentary/Breasts: Skin/Breast: Denies jaundice Neurologic: Denies Abnormal speech present, Reports vertigo, Reports dizziness, Denies syncope, Reports headache(s), Denies Sensory deficit (Neuro) and Denies weakness Endocrine: Endocrine: Denies palpitations PMFSH Past Medical History Attestation statement: The following information was validated with the patient. Source: nursing notes reviewed Medical History Anxiety Asthma Asthma-COPD overlap syndrome Benign essential hypertension Bursitis Chronic rhinitis Claustrophobia Diastasis recti Erectile dysfunction GERD (gastroesophageal reflux disease) Hemoptysis Hiatal hernia Insomnia Laryngospasm Low back pain Lumbar degenerative disc disease Major depressive disorder, recurrent Migraine Obesity (BMI 30-39.9) JOSÉ (obstructive sleep apnea) Pure hypercholesterolemia Stasis edema of both lower extremities Type 2 diabetes mellitus with hyperglycemia, without long-term current use of insulin Surgical History History of carpal tunnel surgery History of endoscopy History of nasal surgery Hx of cardiac catheterization Hx of colonoscopy Family History Family History Father No problems noted. Mother Chronic kidney disease (CKD) Heart attack Other Mental health problem Social History Social History Housing: House Alcohol intake: never Patient Tobacco Use Status: Never used Tobacco Smoked in Last 30 Days: No e-Cigarette/Vaping Use: Never Used Second Hand Smoke Exposure: Yes Use of substances other than those prescribed or required for medical reasons: No Advance Directives: No Advance Directives Information Provided: No service: No Current occupational status: disabled Cognitive needs: No Hearing needs: No Vision needs: No Physical Exam Vital Signs: Vital Signs: Last Vital Signs Temp 98.2 F 02/11/22 20:10 Pulse 81 02/11/22 20:10 Resp 14 02/11/22 20:10 BP 146/83 H 02/11/22 20:10 Pulse Ox 97 02/11/22 20:10 O2 Del Method 02/11/22 20:10 BMI result Body Mass Index 36.8 Hypertension is noted, vital signs otherwise unremarkable Const: General: cooperative, no acute distress, alert and awake; No diaphoretic Nutritional Appearance: overweight Orientation/consciousness: patient oriented x3 Limitations: no limitations HEENT: Head: Yes normal to inspection, Yes normocephalic and Yes atraumatic Ears: hearing grossly normal bilaterally General nose exam: Normal external nose present Face and sinus: Yes normal facial exam Mouth: Normal oral and palatal mucosa present Eyes: General: appearance normal, both eyes and all related structures Conjunctivae: conjunctivae normal Sclerae: sclerae normal Pupils: Equal, round and reactive pupils present EOM: EOMs intact bilaterally Neck: Neck: Yes normal visual inspection and Yes full ROM Resp: Effort & Inspection: normal respiratory effort, normal respiratory pattern and no cough Cardio: Rate: regular rate Rhythm: regular rhythm GI: Inspection: Yes normal to inspection, No Abdominal wall edema and No distended Palpation (GI): not soft and nontender Back/Spine/Pelvis: Cervical Spine: normal cervical lordosis and cervical ROM normal Skin: General skin exam: no rashes or lesions noted, no jaundice and no pallor Neuro: General: patient oriented x3 and CN's II-XI intact bilaterally Cranial nerves: Yes Equal, round and reactive pupils present Cognition (Neuro): normal cognition Speech: No Abnormal speech present Motor exam (neuro): 5/5 motor strength present throughout Sensory Exam: No Sensory deficit (Neuro) Deep tendon reflexes (DTR's): Rt Biceps (C5, C6): 2+, Left biceps reflex intensity grade: 2+, Right patellar reflex intensity grade: 2+ and Left patellar reflex intensity grade: 2+ Medications Administered Discontinued Medications Generic Name Dose Route Start Last Admin Trade Name Freq PRN Reason Stop Dose Admin Iohexol 100 ml 02/11/22 18:10 02/11/22 18:10 Iohexol 350 Mg/Ml 100 Ml Infus..Btl IV 02/11/22 18:11 70 ml ONCE ONE Administration Meclizine HCl 25 mg 02/11/22 20:29 02/11/22 20:46 Meclizine Hcl 25 Mg Tablet PO 02/11/22 20:30 25 mg ONCE ONE Administration MDM - Dizziness MDM Narrative Medical decision making narrative: 56-year-old male who presents to the emergency department tonight with dizziness. Considerations include benign paroxysmal positional vertigo, vertebral basilar insufficiency, or cerebellar stroke. The patient underwent multiple testing including a CT and CT angiogram of the head and neck which were all negative. The patient did receive meclizine p.o. which did seem to help significantly. Laboratory studies were reviewed as well as the patient's EKG all of which are un remarkable and or nondiagnostic. Upon discussing with the patient, he revealed that he did have an MRI on Monday of this week (2 days ago) for similar symptoms which was negative. As such, he will not need another MRI tonight, it will be discharged home with prescription for meclizine to follow up with his primary care doctor on Monday. Initially, was noted that the patient was moderately hypertensive, and he was advised to take his normal hypertensive medications upon return home. Medical Records Attestation: I reviewed the patient's medical records. Medical records narrative: MRI from the reviewed Lab Data Attestation: I reviewed the patient's lab results. Lab results narrative: No significant abnormality Result diagrams: 02/11/22 16:47 02/11/22 16:47 Labs: Lab Results 02/11/22 02/11/22 02/11/22 Range/Units 16:47 16:47 16:47 WBC 8.5 (4.8-10.8) X10*3/uL RBC 5.11 (4.60-5.80) X10*6/uL Hgb 15.1 (14.0-18.0) g/dl Hct 45.1 (42.0-52.0) % MCV 88.3 (80.0-98.0) fL MCH 29.5 (27.0-33.0) pg MCHC 33.5 (31.0-36.0) g/dl RDW 12.0 (11.0-16.0) % Plt Count 283 (160-400) X10*3/uL MPV 10.8 (9.4-12.4) fL Immature Gran % (Auto) 0.7 H (0.0-0.4) % Neut % (Auto) 71.7 (45-73) % Lymph % (Auto) 17.8 L (20-40) % [place] % (Auto) 6.9 (2-11) % Eos % (Auto) 2.0 (0-4) % Baso % (Auto) 0.9 (0-2) % Lymph # (Auto) 1.5 (1.2-4.9) X10*3/uL [place] # (Auto) 0.6 (0.1-1.2) X10*3/uL Eos # (Auto) 0.2 (0.0-0.4) X10*3/uL Baso # (Auto) 0.1 (0.0-0.2) X10*3/uL Abs Immat Gran (auto) 0.06 H (0.00-0.03) X10*3/uL Absolute Neuts (auto) 6.1 (2.0-8.3) x10*3/uL Absolute Nucleated RBC 0.000 (0.0-0.012) X10*3/uL Nucleated RBC % (auto) 0.0 (0.0-0.2) /100WBC Sodium 137 (135-145) mmol/L Potassium 4.1 (3.3-5.1) mmol/L Chloride 104 (96-108) mmol/L Carbon Dioxide 23 (22-29) mmol/L Anion Gap 14 (12-20) BUN 18 H (9-16) mg/dL Creatinine 1.12 (0.5-1.4) mg/dL Estim Creat Clear Calc 84.7 Estimated GFR > 60 Random Glucose 205 H (60-115) mg/dL Calcium 9.2 (8.4-10.2) mg/dL Total Bilirubin 0.4 (0.0-1.0) mg/dL AST 12 (5-37) U/L ALT 26 (0-40) U/L Alkaline Phosphatase 59 (39-117) U/L Troponin I High Sens 5.9 (<3.5-35.0) ng/L Total Protein 6.1 L (6.5-8.0) g/dL Albumin 3.9 (3.5-5.0) g/dL ECG Data Interpretation: Normal sinus rhythm, right bundle-branch block, normal [place] and QT intervals. The substantial change from prior. Discharge Plan Discharge Clinical Impression: Vertigo Patient Disposition: Home, Self-Care Instructions: Vertigo (ED) Prescriptions: New meclizine 25 mg tablet 25 mg PO TID Qty: 20 0RF No Action (DME) nebulizer accessories Misc See Rx Instructions .ROUTE .MEDSUPPLY Qty: 1 11RF Rx Instructions: tubing, mask, nebulizer cup, mouth piece budesonide 0.5 mg/2 mL suspension for nebulization 0.5 mg inhalation BID 30 Days Qty: 120 6RF mupirocin 2 % ointment 1 appl topical TID PRN (Reason: infection) 10 Days Qty: 66 2RF Flovent HFA 110 mcg/actuation HFA aerosol inhaler 2 puff inhalation BID 30 Days Qty: 12 11RF cholecalciferol (vitamin D3) 25 mcg (1,000 unit) tablet 75 mcg PO DAILY Qty: 30 2RF dextromethorphan-guaifenesin [Adult Tussin DM] 10-100 mg/5 mL syrup 10 ml PO Q6H PRN (Reason: cough) 14 Days Qty: 500 1RF (DME) blood pressure monitor Kit See Rx Instructions .Route Qty: 1 0RF Rx Instructions: As directed (DME) PULSE OXIMETER See Rx Instructions .Route .MEDSUPPLY Qty: 1 0RF Rx Instructions: As directed (DME) HIP BRACE (left hip) See Rx Instructions .Route .MEDSUPPLY Qty: 1 0RF Rx Instructions: As directed (DME) THERMOMETER See Rx Instructions .Route .MEDSUPPLY Qty: 1 0RF Rx Instructions: As directed sildenafil 50 mg tablet 50 mg PO DAILY PRN (Reason: sexual activity) Qty: 10 1RF ipratropium-albuterol 0.5 mg-3 mg(2.5 mg base)/3 mL solution for nebulization 3 ml inhalation Q6H PRN (Reason: shortness of breath or wheezing) Qty: 180 2RF ezetimibe [Zetia] 10 mg tablet 10 mg PO DAILY Qty: 90 3RF azelastine 205.5 mcg (0.15 %) spray,non-aerosol 2 spray intranasal BID 30 Days Qty: 30 11RF Rx Instructions: administer into each nostril (DME) blood-glucose meter [FreeStyle Lite Meter] Kit See Rx Instructions .Route Qty: 1 0RF Rx Instructions: As directed- To test blood sugar three times a day clotrimazole-betamethasone 1-0.05 % cream 1 appl topical BID PRN (Reason: rash) Qty: 45 5RF Trelegy Ellipta 200-62.5-25 mcg blister with device 1 inh inhalation DAILY 30 Days Qty: 60 12RF glipizide 5 mg tablet extended release 24hr 5 mg PO DAILY Qty: 90 1RF hydrochlorothiazide 25 mg tablet 25 mg PO DAILY Qty: 90 1RF lancets [FreeStyle Lancets] 28 gauge misc 28 gauge topical TID Qty: 300 11RF latanoprost 0.005 % drops 1 drp ophthalmic (eye) DAILY Qty: 7.5 3RF Rx Instructions: as directed lorazepam 0.5 mg tablet See Rx Instructions .ROUTE .COMPLEX PRN (Reason: anxiety) 30 Days Qty: 60 0RF Rx Instructions: 1 to 2 tablets orally twice a day as needed; PRN; metoprolol succinate 50 mg tablet extended release 24 hr 100 mg PO DAILY 90 Days Qty: 180 3RF melatonin 5 mg capsule 10 mg PO BEDTIME Qty: 30 0RF montelukast 10 mg tablet 10 mg PO QPM Qty: 90 3RF olmesartan 40 mg tablet 40 mg PO DAILY Qty: 90 3RF gabapentin 400 mg capsule See Rx Instructions PO .COMPLEX 30 Days Qty: 120 3RF Rx Instructions: Take 1 capsule in the AM, 1 capsule at noon and 2 capsules at night PO; Dexilant 60 mg capsule,biphase delayed releas 60 mg PO DAILY 90 Days Qty: 90 1RF (DME) pen needle, diabetic [BD Ultra-Fine Mini Pen Needle] 31 gauge x 3/16 needle See Rx Instructions miscellaneous .MEDSUPPLY Qty: 50 2RF Rx Instructions: As directed 1x daily. albuterol sulfate 2.5 mg /3 mL (0.083 %) solution for nebulization 2.5 mg continuous nebulization QID PRN (Reason: shortness of breath or wheezing) 30 Days Qty: 480 5RF (DME) COMPRESSION STOCKINGS medium compression See Rx Instructions .Route .MEDSUPPLY Qty: 3 0RF Rx Instructions: As directed alcohol swabs [BD Alcohol Swabs] Pads, Medicated 1 pad topical TID Qty: 300 0RF albuterol sulfate [Ventolin HFA] 90 mcg/actuation HFA aerosol inhaler 2 puff PO QID PRN (Reason: shortness of breath or wheezing) 90 Days Qty: 3 3RF hydralazine 25 mg tablet 25 mg PO BID 30 Days Qty: 180 0RF aspirin 81 mg tablet,delayed release (DR/EC) 81 mg PO DAILY fexofenadine 180 mg tablet 180 mg PO DAILY atorvastatin [Lipitor] 80 mg tablet 80 mg PO DAILY naproxen 500 mg tablet 500 mg PO BID PRN (Reason: pain) 10 Days Qty: 20 0RF Lantus Solostar U-100 Insulin 100 unit/mL (3 mL) insulin pen 10 unit subcut QPM Qty: 15 2RF miscellaneous medical supply Misc 1 ea miscellaneous DAILY Qty: 1 0RF Rx Instructions: pulse oximeter miscellaneous medical supply Misc 1 ea miscellaneous DAILY Qty: 1 0RF Rx Instructions: thermometer amlodipine 10 mg tablet 10 mg PO DAILY Qty: 90 1RF Bevespi Aerosphere 9-4.8 mcg HFA aerosol inhaler 2 puff inhalation Q12H 30 Days Qty: 10.7 11RF Trulicity 1.5 mg/0.5 mL pen injector 1.5 mg subcut QWEEK Qty: 2 4RF FreeStyle Lite Strips Strip 1 strip miscellaneous TID Qty: 450 12RF (DME) CPAP Machine/Device Device See Rx Instructions .Route Rx Instructions: As directed amoxicillin-pot clavulanate 875-125 mg tablet 1 tab PO BID 10 Days Qty: 20 0RF benzonatate 200 mg capsule 200 mg PO BID PRN (Reason: cough) 30 Days Qty: 30 0RF prednisone 10 mg tablet See Rx Instructions PO DAILY 18 Days Qty: 63 0RF Rx Instructions: PO daily; Take 6 tabs daily x 3 days, then 5 tabs x 3 days, then 4 tabs x 3 days, then 3 tabs x 3 days, then 2 tabs daily x 3 days, then 1 tab x 3 days to complete. azithromycin 250 mg tablet 250 mg PO 3XW 28 Days Qty: 12 6RF Rx Instructions: Take 1 tablet on Monday/Monday/Monday zolpidem 10 mg tablet 10 mg PO BEDTIME PRN (Reason: insomnia) 30 Days Qty: 30 3RF Refresh Lacri-Lube 56.8-42.5 % ointment 1 appl ophthalmic (eye) BEDTIME PRN (Reason: dry eyes) 30 Days Qty: 7 4RF Referrals: Oliverio Emerson MD [Primary Care Provider] - 3 days
[2022-02-11 16:51] LABS: MANUAL DIFF FLAG NO
[2022-02-11 16:57] LABS: Basophils Absolute Auto 0.1 X10*3/uL (0.0-0.2); Basophils Percent Auto 0.9 % (0-2); Eosinophils Absolute Auto 0.2 X10*3/uL (0.0-0.4); Hematocrit 45.1 % (42.0-52.0); Hemoglobin 15.1 g/dl (14.0-18.0); Imm Gran Abs Auto 0.06 X10*3/uL (0.00-0.03); Imm Gran Pct Auto 0.7 % (0.0-0.4); Lymphocytes Absolute Auto 1.5 X10*3/uL (1.2-4.9); Lymphocytes Percent Auto 17.8 % (20-40); Mean Corpuscular HGB Conc 33.5 g/dl (31.0-36.0); Mean Corpuscular Hemoglobin 29.5 pg (27.0-33.0); Mean Corpuscular Volume 88.3 fL (80.0-98.0); Mean Platelet Volume 10.8 fL (9.4-12.4); Monocytes Absolute Auto 0.6 X10*3/uL (0.1-1.2); Monocytes Percent Auto 6.9 % (2-11); Neutrophils Absolute Auto 6.1 x10*3/uL (2.0-8.3); Neutrophils Percent Auto 71.7 % (45-73); Platelet Count 283 X10*3/uL (160-400); Red Blood Count 5.11 X10*6/uL (4.60-5.80); White Blood Count 8.5 X10*3/uL (4.8-10.8)
[2022-02-11 17:01] VITALS: BP 129/90; PULSE 84; RESP 20; TEMP 36.7; O2SAT 98
[2022-02-11 17:18] LABS: Alanine Aminotransferase 26 U/L (0-40); Albumin Level 3.9 g/dL (3.5-5.0); Alkaline Phosphatase 59 U/L (39-117); Anion Gap 14 (12-20); Aspartate Amino Transferase 12 U/L (5-37); Bilirubin Total 0.4 mg/dL (0.0-1.0); Blood Urea Nitrogen 18 mg/dL (9-16); Calcium 9.2 mg/dL (8.4-10.2); Carbon Dioxide 23 mmol/L (22-29); Chloride 104 mmol/L (96-108); Creatinine Clr Calc Pharmacy 84.7; Estimated Glomerular Filt Rate > 60; Glucose Random 205 mg/dL (60-115); Potassium 4.1 mmol/L (3.3-5.1); Sodium 137 mmol/L (135-145); Total Protein 6.1 g/dL (6.5-8.0)
[2022-02-11 17:25] LABS: Troponin-I High Sensitivity 5.9 ng/L (<3.5-35.0)
[2022-02-11] MEDS: iohexoL 350 MG/ML 100 ML INFUS..BTL IV (18:10)
[2022-02-11 18:42] VITALS: BP 158/90; PULSE 87; RESP 16; TEMP 36.8; O2SAT 98
[2022-02-11 20:10] VITALS: BP 146/83; PULSE 81; RESP 14; TEMP 36.8; O2SAT 97
[2022-02-11] MEDS: Meclizine HCl 25 MG TABLET PO (20:46)
--- NOTE | 2022-02-12 01:57 | PC.NURSE ---
Discharge instructions given and explained. Patient ambulates safely and independently. IV catheter intact when removed. No apparent distress.
== END 2022-02-12 01:52 | disposition home or self-care (01) ==
PROVIDERS: Emergency Provider Emergency Medicine; PCP Internal Medicine
DX: R42 Dizziness and giddiness (principal); I10 Essential (primary) hypertension; E11.9 Type 2 diabetes mellitus without complications; E78.00 Pure hypercholesterolemia, unspecified; Z79.82 Long term (current) use of aspirin; Z79.02 Long term (current) use of antithrombotics/antiplatelets; Z79.4 Long term (current) use of insulin; Z79.899 Other long term (current) drug therapy; E66.9 Obesity, unspecified; Z68.36 Body mass index [BMI] 36.0-36.9, adult
CPT/HCPCS: 36415; 70496; 70498; 80053; 84484; 85025; 93005; 99284; Q9967

== ENCOUNTER → 2022-02-22 08:52 | Outpatient (BNVA) | payer OTHER, SELFPAY | PROVIDERS: PCP Internal Medicine; Visit Provider Internal Medicine Endocrinology, Diabetes & Metabolism | DX: E11.65 Type 2 diabetes mellitus with hyperglycemia (principal); Z79.84 Long term (current) use of oral hypoglycemic drugs; Z79.4 Long term (current) use of insulin | CPT/HCPCS: 82947; 83036; 99212 ==

== ENCOUNTER 2022-02-22 09:36 | Outpatient (REF) | payer OTHER, SELFPAY ==
[2022-02-22 12:05] LABS: Cholesterol 170 mg/dL; HDL Cholesterol 40 mg/dL; LDL Cholesterol Calculated 109 mg/dl; Triglycerides 109 mg/dL
[2022-02-22 12:08] LABS: Creatinine Urine 226.23 mg/dL; Microalbum/Creatinine Ratio Ur 2.6 ug/mg cr
== END 2022-02-22 09:37 | disposition home or self-care (01) ==
LOC: HO.10HDL 09:36
PROVIDERS: Visit Provider Internal Medicine Endocrinology, Diabetes & Metabolism
DX: E11.65 Type 2 diabetes mellitus with hyperglycemia (principal)
CPT/HCPCS: 36415; 80061; 82043

== ENCOUNTER → 2022-03-01 09:45 | Outpatient (BNVA) | payer OTHER, SELFPAY | PROVIDERS: PCP Internal Medicine; Visit Provider Registered Nurse Diabetes Educator | DX: E11.9 Type 2 diabetes mellitus without complications (principal); Z79.4 Long term (current) use of insulin | CPT/HCPCS: 99211 ==

== ENCOUNTER → 2022-04-19 09:13 | Outpatient (BNVA) | payer OTHER, SELFPAY | PROVIDERS: PCP Internal Medicine; Visit Provider Internal Medicine | DX: R06.02 Shortness of breath (principal); I10 Essential (primary) hypertension | CPT/HCPCS: 99212 ==

== ENCOUNTER → 2022-04-26 09:37 | Outpatient (BNVA) | payer OTHER, SELFPAY | PROVIDERS: PCP Internal Medicine; Visit Provider Hospitalist | DX: J44.9 Chronic obstructive pulmonary disease, unspecified (principal); G47.33 Obstructive sleep apnea (adult) (pediatric); K44.9 Diaphragmatic hernia without obstruction or gangrene; J38.5 Laryngeal spasm | CPT/HCPCS: 99212 ==

== ENCOUNTER → 2022-05-02 07:59 | Outpatient (REF) | payer OTHER, SELFPAY ==
--- NOTE | 2022-05-02 08:02 | CA_ITS ---
Transthoracic Echocardiogram Patient (Last, First, Middle): Keaton Cullen, Gender: Male Date of : 1965 Age: 57 Procedure Date: 05/02/2022 Procedure Type: Transthoracic Echocardiogram Location: OP Height: 170.18 cm Weight: 106.6 kg BSA: 2.17 m2 Heart Rate: bpm BP: 162 / 95 mmHg Die Cutter Apprentice: CLEM Referring MD: Didier Burch MD Symptoms: R06.02 - Shortness of breath Study Quality: Fair ECG Rhythm: Sinus Conclusions: - The left ventricular systolic function is normal. The calculated ejection fraction is 59% by biplane method. - No obvious valvular pathology seen on this study. - There is mild dilatation of the ascending aorta measuring 3.90 cm. Findings Left Ventricle Normal left ventricular cavity size. There is mildly increased left ventricular wall thickness. The left ventricular systolic function is normal. The calculated ejection fraction is 59% by biplane method. There is no evidence of regional wall motion abnormalities. E/E prime ratio is between 8 and 15 consistent with indeterminate filling pressures. Evidence suggests grade I (mild) diastolic dysfunction. LV peak GLS -13.6%, diminished. Right Ventricle Normal right ventricular cavity size and systolic function. Atria Both atria are normal in size. Aortic Valve The aortic valve was not well visualized. There is mild calcification of the aortic valve. There is no aortic valve stenosis. There is no aortic valve regurgitation. Mitral Valve The mitral valve appears normal. There is no mitral valve regurgitation. There is no mitral valve stenosis. Pulmonic Valve The pulmonic valve is likely normal. Tricuspid Valve Normal tricuspid valve structure. There is no tricuspid valve regurgitation. Tricuspid regurgitation envelope is inadequate for calculation of right ventricular systolic pressure. Great Vessels There is mild dilatation of the ascending aorta measuring 3.90 cm. Venous The inferior vena cava is normal in size and collapses greater than 50% with inspiration. Pericardium/Pleural There is no evidence of pericardial effusion. Prior Study Comparison Changes noted compared to prior study dated: 04/21/2020. slight change in ascending aortic size. Recommendations, Care & Conclusions No obvious valvular pathology seen on this study. Measurements 2D Linear Measurements IVSd: 1.19 0.6-0.9/0.6-1.0 cm LVIDd: 4.49 3.9-5.3/4.2-5.9 cm LVIDd Index: 2.07 2.4-3.2/2.2-3.1 cm/m2 LVIDs: 2.99 2.0-3.6 cm LVPWd: 1.25 0.7-1.1 cm LA Diam: 3.30 2.7-3.8/3.0-4.0 cm LAIDs Index: 1.52 1.5-2.3 cm/m2 LV Mass: 251.99 67-162/88-224 g LV Mass Index: 116.12 43-95/49-115 g/m2 LVOT Diam: 2.20 3.0+(-)1.3 cm 2D Systolic Function EF 4C: 57.30 >55% EF 2C: 64.20 >55% EF BiP: 58.60 >55% Mitral Valve MV Pk E: 0.67 MV PK A: 1.03 MV Decel Time: 185.00 E/A: 0.60 E'Lateral: 5.33 E'Medial: 4.24 E/E' Med: 15.80 E/E' Lat: 12.50 PHT: 54.00 MVA PHT: 4.07 Decel [place]: 3.62 Aortic Valve AoV Pk Robinson: 1.32 AoV Mn Robinson: 0.96 AoV VTI: 0.28 AoV Pk Grad: 7.00 Aov Mn Grad: 4.00 KANDACE Cont.VTI: 2.35 LVOT LVOT Pk Robinson: 0.80 LVOT Mn Robinson: 0.54 LVOT VTI: 0.17 LVOT Pk Grad: 3.00 LVOT Mn Grad: 1.00 LVOT Diam: 2.20 LVOT Area: 3.80 Diastolic Function MV Pk E: 0.67 MV Pk A: 1.03 E/A: 0.60 E'Medial: 4.24 E/E' Med: 15.80 E' Laterial: 5.33 E/E' Lat: 12.50 Right Ventricle TAPSE (mm): 21.40 TVS' Robinson: 11.30 Tricuspid Valve RA Press: 3.00 Great Vessels Aorta Sinus of Valsalva: 3.67 2.0-3.[address] [place]: 3.21 1.7-3.4 cm Ao Asc: 3.90 2.1-3.4 cm Updated in Other Vendor System with Status of Final Didier Burch MD electronically signed on 05/02/2022 9:51:53 AM with status of Final
== END ==
LOC: HO.CARD 07:59
PROVIDERS: PCP Internal Medicine; Visit Provider Internal Medicine
DX: R06.02 Shortness of breath (principal)
CPT/HCPCS: 93306; 93356

== ENCOUNTER 2022-05-10 01:21 | Emergency (ER) | payer OTHER, SELFPAY ==
--- NOTE | ~2022-05-10 | XR_ITS ---
EXAMINATION: XR CHEST CLINICAL INFORMATION: Shortness of breath COMPARISON: 02/09/2022 TECHNIQUE: Frontal view of the chest was obtained. FINDINGS: The lungs are clear with no focal consolidation. No evidence of pneumothorax, pulmonary edema, or pleural effusions. The cardiomediastinal silhouette is unremarkable. No acute osseous findings. XR/XR chest 1V IMPRESSION: No acute cardiopulmonary findings.
[2022-05-10 01:47] VITALS: BP 189/104; PULSE 90; RESP 24; TEMP 36.8; O2SAT 97; BMI 36.8
[2022-05-10 02:41] LABS: MANUAL DIFF FLAG NO
[2022-05-10 02:42] LABS: Basophils Absolute Auto 0.1 X10*3/uL (0.0-0.2); Basophils Percent Auto 0.6 % (0-2); Eosinophils Absolute Auto 0.2 X10*3/uL (0.0-0.4); Eosinophils Percent Auto 2.2 % (0-4); Hematocrit 41.7 % (42.0-52.0); Hemoglobin 13.8 g/dl (14.0-18.0); Imm Gran Abs Auto 0.05 X10*3/uL (0.00-0.03); Imm Gran Pct Auto 0.5 % (0.0-0.4); Lymphocytes Absolute Auto 1.1 X10*3/uL (1.2-4.9); Lymphocytes Percent Auto 11.7 % (20-40); Mean Corpuscular HGB Conc 33.1 g/dl (31.0-36.0); Mean Corpuscular Hemoglobin 29.2 pg (27.0-33.0); Mean Corpuscular Volume 88.2 fL (80.0-98.0); Mean Platelet Volume 10.9 fL (9.4-12.4); Monocytes Absolute Auto 0.6 X10*3/uL (0.1-1.2); Monocytes Percent Auto 6.9 % (2-11); Neutrophils Absolute Auto 7.2 x10*3/uL (2.0-8.3); Neutrophils Percent Auto 78.1 % (45-73); Platelet Count 233 X10*3/uL (160-400); Red Blood Count 4.73 X10*6/uL (4.60-5.80); Red Cell Distribution Width 12.2 % (11.0-16.0); White Blood Count 9.3 X10*3/uL (4.8-10.8)
[2022-05-10 02:57] LABS: COVID-19 Test Negative (Negative); IDNOW Serial# BCCEAD1C
[2022-05-10 02:59] LABS: IDNOW Serial# 16C4AD1C; Influenza A Negative (Negative); Influenza B2 Negative (Negative)
[2022-05-10 03:03] VITALS: BP 182/94; PULSE 84; RESP 14; TEMP 37.2; O2SAT 98
[2022-05-10 03:17] LABS: Alanine Aminotransferase 24 U/L (0-40); Albumin Level 3.9 g/dL (3.5-5.0); Alkaline Phosphatase 62 U/L (39-117); Anion Gap 11 (12-20); Aspartate Amino Transferase 12 U/L (5-37); Bilirubin Total 0.6 mg/dL (0.0-1.0); Blood Urea Nitrogen 12 mg/dL (9-16); Carbon Dioxide 28 mmol/L (22-29); Chloride 105 mmol/L (96-108); Creatinine Clr Calc Pharmacy 90.9; Estimated Glomerular Filt Rate > 60; Glucose Random 285 mg/dL (60-115); Potassium 4.6 mmol/L (3.3-5.1); Sodium 139 mmol/L (135-145); Total Protein 6.1 g/dL (6.5-8.0)
[2022-05-10] MEDS: guaiFEN/Codeine SF 200/20/10ML 10 ML LIQUID PO (03:53)
[2022-05-10] MEDS: dexAMETHasone 2 MG TABLET 10 MG PO (03:53)
[2022-05-10 03:58] VITALS: PULSE 84; RESP 16; O2SAT 98
--- NOTE | 2022-05-10 04:23 | ED.SOB ---
HPI - SOB/Dyspnea General Chief Complaint: Dyspnea Stated Complaint: trouble breathing, stomach ache Time Seen by Provider: 05/10/22 03:34 Source: patient Mode of arrival: ambulatory Limitations: no limitations History of Present Illness HPI Narrative: Patient with history of asthma hypertension diabetes sleep apnea comes in for 3 days of cold symptoms low-grade fever body aches tried inhaler and DuoNeb treatment at home without much relief patient's grandson was also sick 1 week ago with same symptom Related Data Home Medications Medication Instructions Recorded Confirmed aspirin 81 mg tablet,delayed 81 mg PO DAILY 02/18/20 04/19/22 release atorvastatin 80 mg tablet (Lipitor) 80 mg PO DAILY 02/18/20 04/19/22 CPAP (CPAP Machine/Device) 11/19/21 04/19/22 cholecalciferol (vitamin D3) 25 75 mcg PO .Q2days 04/19/22 04/19/22 mcg (1,000 unit) capsule gabapentin 400 mg capsule See Rx Instructions PO .COMPLEX 04/19/22 04/19/22 Previous Rx's Medication Instructions Recorded naproxen 500 mg tablet 500 mg PO BID PRN pain 10 days #20 02/19/20 tabs nebulizer accessories #1 ea 03/04/20 amlodipine 10 mg tablet 10 mg PO DAILY #90 tabs 05/11/20 glycopyrrolate 9 mcg-formoterol 2 puff inhalation Q12H 30 days 07/16/20 4.8 mcg HFA aerosol inhaler #10.7 grams (Bevespi Aerosphere) budesonide 0.5 mg/2 mL suspension 0.5 mg (2 mL) inhalation BID 30 11/17/20 for nebulization days #120 mL mupirocin 2 % topical ointment 1 appl topical TID PRN infection 01/13/21 10 days #66 grams insulin glargine 100 unit/mL (3 10 unit (0.1 mL) subcut QPM #15 mL 07/29/21 mL) subcutaneous pen (Lantus Solostar U-100 Insulin) miscellaneous medical supply 1 ea miscellaneous DAILY #1 ea 07/29/21 miscellaneous medical supply 1 ea miscellaneous DAILY #1 ea 07/29/21 PULSE OXIMETER #1 ea 08/26/21 blood pressure monitor #1 ea 08/26/21 HIP BRACE (left hip) #1 ea 09/28/21 THERMOMETER #1 ea 09/28/21 ipratropium 0.5 mg-albuterol 3 mg 3 ml inhalation Q6H PRN shortness 11/19/21 (2.5 mg base)/3 mL nebulization of breath or wheezing #180 mL soln azelastine 205.5 mcg (0.15 %) 2 spray intranasal BID 30 days #30 11/24/21 nasal spray mL clotrimazole-betamethasone 1 1 appl topical BID PRN rash #45 11/24/21 %-0.05 % topical cream grams ezetimibe 10 mg tablet (Zetia) 10 mg PO DAILY #90 tabs 11/24/21 fluticasone fur. 200 mcg-umeclid 1 inh inhalation DAILY 30 days #60 11/24/21 62.5 mcg-vilant 25 mcg ea inhalat.powder (Trelegy Ellipta) glipizide 5 mg tablet, extended 5 mg PO DAILY #90 tabs 11/24/21 release 24 hr hydrochlorothiazide 25 mg tablet 25 mg PO DAILY #90 tabs 11/24/21 latanoprost 0.005 % eye drops 1 drp ophthalmic (eye) DAILY #7.5 11/24/21 mL melatonin 5 mg capsule 10 mg PO BEDTIME #30 caps 11/24/21 metoprolol succinate 50 mg 100 mg PO DAILY 90 days #180 tabs 11/24/21 tablet,extended release 24 hr montelukast 10 mg tablet 10 mg PO QPM #90 tabs 11/24/21 olmesartan 40 mg tablet 40 mg PO DAILY #90 tabs 11/24/21 pen needle, diabetic 31 gauge x #50 ea 01/10/22/ (BD Ultra-Fine Mini Pen Needle) albuterol sulfate 2.5 mg/3 mL 2.5 mg (3 mL) continuous 01/11/22 (0.083 %) solution for nebulization nebulization QID PRN shortness of breath or wheezing 30 days #480 mL white petrolatum-mineral oil 56.8 1 appl ophthalmic (eye) BEDTIME 01/31/22 %-42.5 % eye ointment (Refresh PRN dry eyes 30 days #7 grams Lacri-Lube) blood-glucose meter (FreeStyle #1 ea 03/01/22 Lite Meter kit) lancets 28 gauge (FreeStyle 28 gauge topical TID #300 ea 03/01/22 Lancets) COMPRESSION STOCKINGS (medium #3 ea 03/03/22 compression - 20 to 30 mm); Knee high lorazepam 0.5 mg tablet See Rx Instructions .Route 03/03/22 .COMPLEX PRN anxiety 30 days #60 tabs dulaglutide 1.5 mg/0.5 mL 1.5 mg (0.5 mL) subcut QWEEK #2 mL 03/18/22 subcutaneous pen injector (Trulicity) azithromycin 250 mg tablet 250 mg PO 3XW #12 tabs 03/25/22 alcohol swabs (BD Alcohol Swabs) 1 pad topical TID for diabetes 04/07/22 mellitus #300 pad blood sugar diagnostic (FreeStyle #100 ea 04/07/22 Lite Strips) albuterol sulfate 90 mcg/actuation 2 puff PO QID PRN shortness of 04/18/22 aerosol inhaler (Ventolin HFA) breath or wheezing 90 days #3 multiple units zolpidem 10 mg tablet 10 mg PO BEDTIME PRN insomnia 30 04/18/22 days #30 tabs hydralazine 50 mg tablet 50 mg PO TID 90 days #270 tabs 04/19/22 sildenafil 50 mg tablet 50 mg PO DAILY PRN sexual activity 04/19/22 #10 tabs azithromycin 250 mg tablet 250 mg PO 3XW 28 days #12 tabs 04/26/22 benzonatate 200 mg capsule 200 mg PO TID PRN cough #30 caps 05/10/22 cefpodoxime 200 mg tablet 200 mg PO BID #20 tabs 05/10/22 prednisone 20 mg tablet 40 mg PO DAILY #10 tabs 05/10/22 Allergies Allergy/AdvReac Type Severity Reaction Status Date / Time iodine [Iodine] Allergy Severe THROAT Verified 04/26/22 09:54 SWELLING lisinopril Allergy Severe Rash Verified 04/26/22 09:54 metformin Allergy Severe diarrhea Verified 04/26/22 09:54 meperidine [From Demerol] Allergy Mild RASH Verified 04/26/22 09:54 oxycodone [From Percocet] AdvReac Mild MOUTH Verified 04/26/22 09:54 DRYNESS,RASH [place] Detox Allergy Severe Close Uncoded 04/26/22 09:54 Throat Shellfish Allergy Severe THROAT Uncoded 04/26/22 09:54 SWELLING Review of Systems Review of Systems: Yes all other systems are reviewed and are negative [facility] Past Medical History Medical History Anxiety Asthma Asthma-COPD overlap syndrome Benign essential hypertension Bursitis Chronic rhinitis Claustrophobia Diastasis recti Erectile dysfunction GERD (gastroesophageal reflux disease) GERD without esophagitis Hemoptysis Hiatal hernia Insomnia Laryngospasm Low back pain Lumbar degenerative disc disease Major depressive disorder, recurrent Migraine Obesity (BMI 30-39.9) JOSÉ (obstructive sleep apnea) Pure hypercholesterolemia Stasis edema of both lower extremities Type 2 diabetes mellitus with hyperglycemia, without long-term current use of insulin Surgical History History of carpal tunnel surgery History of endoscopy History of nasal surgery Hx of cardiac catheterization Hx of colonoscopy Family History Family History Father No problems noted. Mother Chronic kidney disease (CKD) Heart attack Other Mental health problem Social History Social History Household Members: Spouse and Family Household Members Other:: , kids Housing: House Alcohol intake: never Patient Tobacco Use Status: Never used Tobacco e-Cigarette/Vaping Use: Never Used Second Hand Smoke Exposure: Yes Advance Directives: No Advance Directives Information Provided: Yes service: No Current occupational status: disabled Cognitive needs: No Hearing needs: No Vision needs: No Physical Exam Vital Signs: Vital Signs: Last Vital Signs Temp 98.5 F 05/10/22 04:27 Pulse 89 05/10/22 04:27 Resp 16 05/10/22 04:27 BP 184/97 H 05/10/22 04:27 Pulse Ox 96 05/10/22 04:27 O2 Del Method 05/10/22 04:27 BMI result Body Mass Index 36.8 Appearance: Alert. Oriented X3. No acute distress. Eyes: PERRLA, No Nystagmus ENT: Pharynx normal. Oral Mucosa moist clear rhinorrhea Neck: Normal inspection. Neck supple. CVS: Normal heart rate and rhythm. Pulses normal. Respiratory: No respiratory distress. Equal air entry bilateral, no wheezing/rales/rhonchi prolonged expiration Abdomen: Soft and nontender. Bowel sounds are present, no mass palpable, no CVA tenderness Skin: Skin warm and dry. Normal skin color. Normal skin turgor. Extremities: No lower extremity edema. No calf tenderness Neuro: Oriented X 3. No motor deficit. Medications Administered Discontinued Medications Generic Name Dose Route Start Last Admin Trade Name Freq PRN Reason Stop Dose Admin Acetaminophen 650 mg 05/10/22 05:27 05/10/22 05:55 Acetaminophen 325 Mg Tablet PO 05/10/22 05:28 650 mg ONCE ONE Administration Albuterol Sulfate 2.5 mg/ 0 mg 05/10/22 03:41 05/10/22 03:57 Ipratropium [place] 0.5 mg INHALE 05/10/22 03:42 1 each ONCE ONE Administration Dexamethasone 10 mg 05/10/22 03:41 05/10/22 03:53 Dexamethasone 2 Mg Tablet PO 05/10/22 03:42 10 mg ONCE ONE Administration Guaifenesin/Codeine Phosphate 10 ml 05/10/22 03:41 05/10/22 03:53 Guaifen/Codeine Sf 200/20/10ml 10 Ml Liquid PO 05/10/22 03:42 10 ml ONCE ONE Administration Medical Decision Making Lab Data 05/10/22 02:37 05/10/22 02:37 Labs: Lab Results 05/10/22 05/10/22 05/10/22 Range/Units 02:37 02:37 02:37 WBC 9.3 (4.8-10.8) X10*3/uL RBC 4.73 (4.60-5.80) X10*6/uL Hgb 13.8 L (14.0-18.0) g/dl Hct 41.7 L (42.0-52.0) % MCV 88.2 (80.0-98.0) fL MCH 29.2 (27.0-33.0) pg MCHC 33.1 (31.0-36.0) g/dl RDW 12.2 (11.0-16.0) % Plt Count 233 (160-400) X10*3/uL MPV 10.9 (9.4-12.4) fL Immature Gran % (Auto) 0.5 H (0.0-0.4) % Neut % (Auto) 78.1 H (45-73) % Lymph % (Auto) 11.7 L (20-40) % Iron % (Auto) 6.9 (2-11) % Eos % (Auto) 2.2 (0-4) % Baso % (Auto) 0.6 (0-2) % Lymph # (Auto) 1.1 L (1.2-4.9) X10*3/uL Iron # (Auto) 0.6 (0.1-1.2) X10*3/uL Eos # (Auto) 0.2 (0.0-0.4) X10*3/uL Baso # (Auto) 0.1 (0.0-0.2) X10*3/uL Abs Immat Gran (auto) 0.05 H (0.00-0.03) X10*3/uL Absolute Neuts (auto) 7.2 (2.0-8.3) x10*3/uL Absolute Nucleated RBC 0.000 (0.0-0.012) X10*3/uL Nucleated RBC % (auto) 0.0 (0.0-0.2) /100WBC Sodium 139 (135-145) mmol/L Potassium 4.6 (3.3-5.1) mmol/L Chloride 105 (96-108) mmol/L Carbon Dioxide 28 (22-29) mmol/L Anion Gap 11 L (12-20) BUN 12 (9-16) mg/dL Creatinine 1.03 (0.5-1.4) mg/dL Estim Creat Clear Calc 90.9 Estimated GFR > 60 Random Glucose 285 H (60-115) mg/dL Calcium 9.0 (8.4-10.2) mg/dL Total Bilirubin 0.6 (0.0-1.0) mg/dL AST 12 (5-37) U/L ALT 24 (0-40) U/L Alkaline Phosphatase 62 (39-117) U/L Total Protein 6.1 L (6.5-8.0) g/dL Albumin 3.9 (3.5-5.0) g/dL COVID-19 (ANGEL) (Negative) COVID-19 Clin Com Influenza Type A (PASTOR) Negative (Negative) Influenza Type A (PCR) (Negative) Influenza Type B (PASTOR) Negative (Negative) Influenza Type B (PCR) (Negative) Influenza A & B Note See Note RSV RNA Qual (PCR) (Negative) SARS-CoV-2 RNA (RT-PCR) (Negative) 05/10/22 05/10/22 Range/Units 02:37 04:24 WBC (4.8-10.8) X10*3/uL RBC (4.60-5.80) X10*6/uL Hgb (14.0-18.0) g/dl Hct (42.0-52.0) % MCV (80.0-98.0) fL MCH (27.0-33.0) pg MCHC (31.0-36.0) g/dl RDW (11.0-16.0) % Plt Count (160-400) X10*3/uL MPV (9.4-12.4) fL Immature Gran % (Auto) (0.0-0.4) % Neut % (Auto) (45-73) % Lymph % (Auto) (20-40) % Iron % (Auto) (2-11) % Eos % (Auto) (0-4) % Baso % (Auto) (0-2) % Lymph # (Auto) (1.2-4.9) X10*3/uL Iron # (Auto) (0.1-1.2) X10*3/uL Eos # (Auto) (0.0-0.4) X10*3/uL Baso # (Auto) (0.0-0.2) X10*3/uL Abs Immat Gran (auto) (0.00-0.03) X10*3/uL Absolute Neuts (auto) (2.0-8.3) x10*3/uL Absolute Nucleated RBC (0.0-0.012) X10*3/uL Nucleated RBC % (auto) (0.0-0.2) /100WBC Sodium (135-145) mmol/L Potassium (3.3-5.1) mmol/L Chloride (96-108) mmol/L Carbon Dioxide (22-29) mmol/L Anion Gap (12-20) BUN (9-16) mg/dL Creatinine (0.5-1.4) mg/dL Estim Creat Clear Calc Estimated GFR Random Glucose (60-115) mg/dL Calcium (8.4-10.2) mg/dL Total Bilirubin (0.0-1.0) mg/dL AST (5-37) U/L ALT (0-40) U/L Alkaline Phosphatase (39-117) U/L Total Protein (6.5-8.0) g/dL Albumin (3.5-5.0) g/dL COVID-19 (ANGEL) Negative (Negative) COVID-19 Clin Com See Note Influenza Type A (PASTOR) (Negative) Influenza Type A (PCR) NEGATIVE (Negative) Influenza Type B (PASTOR) (Negative) Influenza Type B (PCR) NEGATIVE (Negative) Influenza A & B Note RSV RNA Qual (PCR) NEGATIVE (Negative) SARS-CoV-2 RNA (RT-PCR) NEGATIVE (Negative) Discharge Plan Discharge Clinical Impression: Acute bronchitis Patient Disposition: Home, Self-Care Instructions: Acute Bronchitis (ED) Additional Instructions: Drink plenty of fluids Cough drops as advised Antibiotic as prescribed Continue use your inhaler nebulizing treatment Start prednisone and check blood sugar as it will increase the blood sugar Prescriptions: New cefpodoxime 200 mg tablet 200 mg PO BID Qty: 20 0RF Rx Instructions: must administer with a meal/food benzonatate 200 mg capsule 200 mg PO TID PRN (Reason: cough) Qty: 30 0RF prednisone 20 mg tablet 40 mg PO DAILY Qty: 10 0RF No Action (DME) nebulizer accessories [facility] See Rx Instructions .ROUTE .MEDSUPPLY Qty: 1 11RF Rx Instructions: tubing, mask, nebulizer cup, mouth piece budesonide 0.5 mg/2 mL suspension for nebulization 0.5 mg inhalation BID 30 Days Qty: 120 6RF mupirocin 2 % ointment 1 appl topical TID PRN (Reason: infection) 10 Days Qty: 66 2RF (DME) blood pressure monitor Kit See Rx Instructions .Route Qty: 1 0RF Rx Instructions: As directed (DME) PULSE OXIMETER See Rx Instructions .Route .MEDSUPPLY Qty: 1 0RF Rx Instructions: As directed (DME) HIP BRACE (left hip) See Rx Instructions .Route .MEDSUPPLY Qty: 1 0RF Rx Instructions: As directed (DME) THERMOMETER See Rx Instructions .Route .MEDSUPPLY Qty: 1 0RF Rx Instructions: As directed ipratropium-albuterol 0.5 mg-3 mg(2.5 mg base)/3 mL solution for nebulization 3 ml inhalation Q6H PRN (Reason: shortness of breath or wheezing) Qty: 180 2RF ezetimibe [Zetia] 10 mg tablet 10 mg PO DAILY Qty: 90 3RF azelastine 205.5 mcg (0.15 %) spray,non-aerosol 2 spray intranasal BID 30 Days Qty: 30 11RF Rx Instructions: administer into each nostril clotrimazole-betamethasone 1-0.05 % cream 1 appl topical BID PRN (Reason: rash) Qty: 45 5RF Trelegy Ellipta 200-62.5-25 mcg blister with device 1 inh inhalation DAILY 30 Days Qty: 60 12RF glipizide 5 mg tablet extended release 24hr 5 mg PO DAILY Qty: 90 1RF hydrochlorothiazide 25 mg tablet 25 mg PO DAILY Qty: 90 1RF latanoprost 0.005 % drops 1 drp ophthalmic (eye) DAILY Qty: 7.5 3RF Rx Instructions: as directed metoprolol succinate 50 mg tablet extended release 24 hr 100 mg PO DAILY 90 Days Qty: 180 3RF melatonin 5 mg capsule 10 mg PO BEDTIME Qty: 30 0RF montelukast 10 mg tablet 10 mg PO QPM Qty: 90 3RF olmesartan 40 mg tablet 40 mg PO DAILY Qty: 90 3RF (DME) pen needle, diabetic [BD Ultra-Fine Mini Pen Needle] 31 gauge x 3/16 needle See Rx Instructions miscellaneous .MEDSUPPLY Qty: 50 2RF Rx Instructions: As directed 1x daily. albuterol sulfate 2.5 mg /3 mL (0.083 %) solution for nebulization 2.5 mg continuous nebulization QID PRN (Reason: shortness of breath or wheezing) 30 Days Qty: 480 5RF (DME) blood-glucose meter [FreeStyle Lite Meter] Kit See Rx Instructions .Route Qty: 1 0RF Rx Instructions: As directed- To test blood sugar three times a day lancets [FreeStyle Lancets] 28 gauge misc 28 gauge topical TID Qty: 300 11RF Trulicity 1.5 mg/0.5 mL pen injector 1.5 mg subcut QWEEK Qty: 2 4RF azithromycin 250 mg tablet 250 mg PO 3XW Qty: 12 2RF alcohol swabs [BD Alcohol Swabs] Pads, Medicated 1 pad topical TID Qty: 300 0RF (DME) FreeStyle Lite Strips Strip See Rx Instructions .Route Qty: 100 5RF Rx Instructions: As directed tests 5 X/day albuterol sulfate [Ventolin HFA] 90 mcg/actuation HFA aerosol inhaler 2 puff PO QID PRN (Reason: shortness of breath or wheezing) 90 Days Qty: 3 3RF zolpidem 10 mg tablet 10 mg PO BEDTIME PRN (Reason: insomnia) 30 Days Qty: 30 3RF sildenafil 50 mg tablet 50 mg PO DAILY PRN (Reason: sexual activity) Qty: 10 1RF aspirin 81 mg tablet,delayed release (DR/EC) 81 mg PO DAILY atorvastatin [Lipitor] 80 mg tablet 80 mg PO DAILY naproxen 500 mg tablet 500 mg PO BID PRN (Reason: pain) 10 Days Qty: 20 0RF Lantus Solostar U-100 Insulin 100 unit/mL (3 mL) insulin pen 10 unit subcut QPM Qty: 15 2RF miscellaneous medical supply Misc 1 ea miscellaneous DAILY Qty: 1 0RF Rx Instructions: pulse oximeter miscellaneous medical supply Misc 1 ea miscellaneous DAILY Qty: 1 0RF Rx Instructions: thermometer (DME) COMPRESSION STOCKINGS (medium compression - 20 to 30 mm); Knee high medium compression See Rx Instructions .Route .MEDSUPPLY Qty: 3 11RF Rx Instructions: As directed lorazepam 0.5 mg tablet See Rx Instructions .ROUTE .COMPLEX PRN (Reason: anxiety) 30 Days Qty: 60 0RF Rx Instructions: 1 to 2 tablets orally twice a day as needed; PRN; amlodipine 10 mg tablet 10 mg PO DAILY Qty: 90 1RF Bevespi Aerosphere 9-4.8 mcg HFA aerosol inhaler 2 puff inhalation Q12H 30 Days Qty: 10.7 11RF (DME) CPAP Machine/Device Device See Rx Instructions .Route Rx Instructions: As directed cholecalciferol (vitamin D3) 25 mcg (1,000 unit) capsule 75 mcg PO .Q2days gabapentin 400 mg capsule See Rx Instructions PO .COMPLEX Rx Instructions: Take 1 capsule in the AM, 1 capsule at noon ; hydralazine 50 mg tablet 50 mg PO TID 90 Days Qty: 270 3RF Refresh Lacri-Lube 56.8-42.5 % ointment 1 appl ophthalmic (eye) BEDTIME PRN (Reason: dry eyes) 30 Days Qty: 7 4RF azithromycin 250 mg tablet 250 mg PO 3XW 28 Days Qty: 12 1RF Rx Instructions: Take 1 tablet on Monday/Monday/Monday Interventions: ED Discharge Assessment Last Done: 05/10/22 06:21 Discharge Date/Time: 05/10/22 06:23
[2022-05-10 04:27] VITALS: BP 184/97; PULSE 89; RESP 16; TEMP 36.9; O2SAT 96
[2022-05-10 05:05] LABS: Influenza A PCR NEGATIVE (Negative); Influenza B PCR NEGATIVE (Negative); Resp Syncy Virus RNA Qual PCR NEGATIVE (Negative); SARS COV2 PCR INHOUSE NEGATIVE (Negative)
[2022-05-10] MEDS: Acetaminophen 325 MG TABLET 650 MG PO (05:55)
== END 2022-05-10 06:23 | disposition home or self-care (01) ==
PROVIDERS: Emergency Provider Internal Medicine; PCP Internal Medicine
DX: J20.9 Acute bronchitis, unspecified (principal); Z20.822 Contact with and (suspected) exposure to COVID-19; Z20.828 Contact with and (suspected) exposure to other viral communicable diseases; E11.9 Type 2 diabetes mellitus without complications; I10 Essential (primary) hypertension; E78.5 Hyperlipidemia, unspecified; Z79.82 Long term (current) use of aspirin; Z79.02 Long term (current) use of antithrombotics/antiplatelets; Z79.899 Other long term (current) drug therapy; Z79.4 Long term (current) use of insulin
CPT/HCPCS: 0241U; 71045; 80053; 85025; 87502; 87635; 94640; 99284; J8540

== ENCOUNTER 2022-05-26 10:12 | Outpatient (REF) | payer OTHER, SELFPAY ==
--- NOTE | 2022-05-26 17:31 | PFT_ITS ---
INDICATION: Asthma. SPIROMETRY: FEV1 to FVC 71% postbronchodilator, 69% prebronchodilator with an FEV1 of 2.41 L, which is 70% predicted, and FVC of 3.41 L, which is 77% predicted. There was a significant response to bronchodilators noted. To note, the HBD24-64 decreased down to 41% predicted and maximum voluntary ventilation of 46% predicted. LUNG VOLUMES: Total lung capacity 87% predicted with an expiratory residual volume of 27% predicted. DIFFUSION CAPACITY: DLCO 109% predicted. COMPRESSIONS: Not available. INTERPRETATION: There appears to be partially reversible. In addition to that, the patient did have a significant response to bronchodilators noted. Significant small airway disease secondary to the history of asthma and also the elevated BMI. Patient also has a [id number] decrease in maximum voluntary ventilation. Impart, this is due to deconditioning, although it could also be a component of worsening dynamic inspiratory capacity. Lung volumes with significant air trapping due to the small airway disease and diffusion capacity is within normal limits. Clinical correlation warranted. MD EVANGELISTA Jones/FLEX / [id number]
== END 2022-05-26 10:13 | disposition home or self-care (01) ==
LOC: HO.RESP 10:12
PROVIDERS: Visit Provider Hospitalist
DX: J44.9 Chronic obstructive pulmonary disease, unspecified (principal); E11.65 Type 2 diabetes mellitus with hyperglycemia
CPT/HCPCS: 82947; 83036; 94060; 94727; 94729; 99212

== ENCOUNTER → 2022-06-20 10:31 | Outpatient (BNVA) | payer OTHER, SELFPAY | PROVIDERS: PCP Internal Medicine; Visit Provider Hospitalist | DX: J44.9 Chronic obstructive pulmonary disease, unspecified (principal); J38.5 Laryngeal spasm; J45.41 Moderate persistent asthma with (acute) exacerbation; G47.33 Obstructive sleep apnea (adult) (pediatric); K44.9 Diaphragmatic hernia without obstruction or gangrene | CPT/HCPCS: 99212 ==

== ENCOUNTER → 2022-06-21 13:02 | Outpatient (BNVA) | payer OTHER, SELFPAY | PROVIDERS: PCP Internal Medicine; Referring Provider Internal Medicine; Visit Provider Nurse Practitioner Family | DX: I10 Essential (primary) hypertension (principal); R06.02 Shortness of breath; G47.33 Obstructive sleep apnea (adult) (pediatric) | CPT/HCPCS: 99212 ==

== ENCOUNTER → 2022-07-21 08:48 | Outpatient (BNVA) | payer OTHER, SELFPAY | PROVIDERS: PCP Internal Medicine; Referring Provider Internal Medicine; Visit Provider Nurse Practitioner Family | DX: R13.10 Dysphagia, unspecified (principal); K21.9 Gastro-esophageal reflux disease without esophagitis; R06.02 Shortness of breath; G47.33 Obstructive sleep apnea (adult) (pediatric); I45.10 Unspecified right bundle-branch block; R68.81 Early satiety | CPT/HCPCS: 99202 ==

== ENCOUNTER 2022-07-28 10:25 | Outpatient (REF) | payer OTHER, SELFPAY ==
[2022-07-30 16:50] LABS: Alpha 1 Anti-trypsin 114 mg/dL (83-199)
== END 2022-07-28 10:26 | disposition home or self-care (01) ==
LOC: HO.LAB 10:25
PROVIDERS: PCP Internal Medicine; Visit Provider Hospitalist
DX: J44.9 Chronic obstructive pulmonary disease, unspecified (principal); J30.9 Allergic rhinitis, unspecified; Z91.09 Other allergy status, other than to drugs and biological substances
CPT/HCPCS: 36415; 82103; 82785; 86003

== ENCOUNTER → 2022-08-10 08:06 | Outpatient (REF) | payer OTHER, SELFPAY ==
--- NOTE | ~2022-08-10 | NM_ITS ---
EXAMINATION: NM RADIONUCLIDE SOLID FOOD GASTRIC EMPTYING 4-HOUR STUDY CLINICAL INFORMATION: Early satiety. COMPARISON: None available. TECHNIQUE: A standard meal consisting of 4 oz of Egg Beaters brand tagged with 1000 microcuries Tc-99m Sulfur Colloid, 8 oz water and 2 slices of toast with jelly was administered orally to the patient. Images were obtained using a dual head gamma camera in the anterior and posterior projections over of the stomach immediately post ingestion and at hourly intervals up to 4 hours post ingestion. The anterior and posterior counts at each time interval were averaged using the geometric mean and expressed as percentage of the immediate post ingestion counts. FINDINGS: There is good visualization of activity in the stomach immediately post ingestion. As the study progresses, there is good clearance of activity from the stomach and visualization of progressively increasing small bowel activity. By the end of the study, there is almost no retention noted in the stomach. Retention in the stomach at each time interval was: 1 hour 49% (normal 37%-90%) 2 hours 9% (normal 30%-60%) 3 hours 7% 4 hours evaluation was not performed since only 7% retention was noted at 3 hours. NM/NM gastric emptying study IMPRESSION: Normal 4-hour solid food gastric emptying study.
== END ==
LOC: HO.NUCMED 08:06
PROVIDERS: PCP Internal Medicine; Visit Provider Physician Assistant
DX: R68.81 Early satiety (principal)
CPT/HCPCS: 78264; A9541

== ENCOUNTER 2022-09-05 08:39 | Outpatient (AMB) | payer OTHER, SELFPAY ==
[2022-09-05 08:55] VITALS: BP 138/92; PULSE 81; O2SAT 95; BMI 37.1
--- NOTE | 2022-09-05 08:55 | A.OFFPC_ITS ---
Vital Signs 09/05/22 08:55 Height 5 ft 7 in Weight 237 lb BMI 37.1 BP 138/92 H Blood Pressure Location Lt brachial Position Sitting Pulse 81 Pulse Source Pulse Oximeter Pulse Oximetry (%) 95 Oxygen Delivery Method Room Air Intake Visit Reasons: 3 month f/u Intake Note: Patient is here for a three months follow up. Peer Financial Counselor Required: No Accompanied by: Self / Same As Patient Allergies iodine [Iodine] Allergy (Severe, Verified 12/29/22 09:47) THROAT SWELLING lisinopril Allergy (Severe, Verified 12/29/22 09:47) Rash metformin Allergy (Severe, Verified 12/29/22 09:47) diarrhea meperidine [From Demerol] Allergy (Mild, Verified 12/29/22 09:47) RASH oxycodone [From Percocet] Adverse Reaction (Mild, Verified 12/29/22 09:47) MOUTH DRYNESS,RASH Mercury Detox Allergy (Severe, Uncoded 12/29/22 09:47) Close Throat Shellfish Allergy (Severe, Uncoded 12/29/22 09:47) THROAT SWELLING Medication List - Last Reconciled 09/05/22 by Oliverio Emerson MD albuterol sulfate 2.5 mg (3 mL) continuous nebulization QID PRN 30 days albuterol sulfate 90 mcg/actuation (Ventolin HFA) 2 puffs PO QID PRN 90 days alcohol swabs (BD Alcohol Swabs) 1 pad topical TID amlodipine 10 mg PO DAILY aspirin 81 mg PO DAILY azelastine 2 sprays intranasal BID 30 days azithromycin 250 mg PO 3XW bisacodyl (Dulcolax (bisacodyl)) 10 mg (2 x 5 mg) PO ONCE 1 day blood pressure monitor As directed blood pressure monitor (Blood Pressure Kit) Take BP up to once daily and keep a log blood sugar diagnostic (FreeStyle Lite Strips) As directed tests 5 X/day blood-glucose meter (FreeStyle Lite Meter kit) As directed- To test blood sugar three times a day blood-glucose sensor ([employer] G7 Sensor device) As directed budesonide 0.5 mg (2 mL) inhalation BID 30 days cholecalciferol (vitamin D3) 75 mcg PO .Q2days clotrimazole-betamethasone 1-0.05 % 1 appl topical BID PRN [COMPRESSION STOCKINGS (medium compression - 20 to 30 mm); Knee high As directed ] CPAP (CPAP Machine/Device) As directed diphenhydramine HCl 25 mg PO TID PRN dulaglutide (Trulicity) 3 mg (0.5 mL) subcut QWEEK epinephrine (EpiPen 2-Dread) 0.3 mg (0.3 mL) IM Q4H PRN ezetimibe (Zetia) 10 mg PO DAILY xchuvvmtyuj-zgnmvpjul-djtpbxuj 200-62.5-25 mcg (Trelegy Ellipta) 1 inh inhalation DAILY 30 days gabapentin 1 capsule BID and 2 capsules at bedtime orally -(4 capsules a day in total) 28 days glipizide ER 5 mg PO DAILY [HIP BRACE (left hip) As directed] hydralazine 50 mg PO TID hydrochlorothiazide 25 mg PO DAILY insulin glargine (Lantus Solostar U-100 Insulin) 10 units (0.1 mL) subcut QPM ipratropium-albuterol 0.5 mg-3 mg(2.5 mg base)/3 mL 3 mL inhalation Q6H PRN lancets (FreeStyle Lancets) 28 gauge topical TID lancets (FreeStyle Lancets) As directed 4 X/day latanoprost 0.005% 1 drp ophthalmic (eye) DAILY lorazepam 1 to 2 tablets orally twice a day as needed; PRN; 30 days melatonin 10 mg (2 x 5 mg) PO BEDTIME metoprolol succinate ER 50 mg PO BID montelukast 10 mg PO QPM mupirocin 2% 1 appl topical TID PRN 10 days naproxen 500 mg PO BID PRN 10 days nebulizer accessories tubing, mask, nebulizer cup, mouth piece olmesartan 40 mg PO DAILY pantoprazole 40 mg PO DAILY 30 days pen needle, diabetic (BD Ultra-Fine Mini Pen Needle) As directed 1x daily. polyethylene glycol 3350 (Miralax) 238 grams PO ONCE 1 day prednisone 40 mg (2 x 20 mg) PO DAILY prednisone PO daily; Take 6 tabs daily x 3 days, then 5 tabs x 3 days, then 4 tabs x 3 days, then 3 tabs x 3 days, then 2 tabs daily x 3 days, then 1 tab x 3 days to complete. 18 days [PULSE OXIMETER As directed] roflumilast (Daliresp) 250 mcg PO DAILY sildenafil 50 mg PO DAILY PRN [THERMOMETER As directed] white petrolatum-mineral oil 56.8-42.5 % (Refresh Lacri-Lube) 1 appl ophthalmic (eye) BEDTIME PRN 30 days zolpidem 10 mg PO BEDTIME PRN 30 days Tobacco use date assessed: 09/05/22 Dental Screening Dental Screen Date: 09/05/22 Did you have a dental visit in the last 12 months?: Yes Did you have a dental problem in the last 6 months where you did not have access to dental care?: No Was dental information given to patient?: Patient has dentist HPI 3 month f/u HPI Details Patient comes in today for his follow up visit States that he was seen by GI for follow up recently Had a gastric emptying time done a couple of weeks ago for work up of early satiety - test came back normal States that he now will have EGD and colonoscopy scheduled for further evaluation of his symptoms once he is cleared by anesthesia States that he feels okay otherwise Still reports (+) on and off headaches and dizziness Denies any chest pains, no increased SOB - asthma has been better controlled lately No nausea/vomiting, still (+) on and off abdominal pain mostly over the epigastric area and often triggered when he eats No change in bowel habits noted Was seen by Dr. Guerrier back in May 2022 for his diabetes - had his Trulicity increased to 3 mg weekly and was continued on his Lantus at 10 units QD and Glipizide ER 5 mg QD Has no follow up labs done recently PFSH Medical History Anxiety Asthma Asthma-COPD overlap syndrome Benign essential hypertension Bursitis Chronic rhinitis Claustrophobia Diabetes Diastasis recti Erectile dysfunction GERD (gastroesophageal reflux disease) GERD without esophagitis Hemoptysis Hiatal hernia Hx of fracture of fibula Insomnia Laryngospasm Low back pain Lumbar degenerative disc disease Migraine Obesity (BMI 30-39.9) JOSÉ (obstructive sleep apnea) Pure hypercholesterolemia Stasis edema of both lower extremities Type 2 diabetes mellitus with hyperglycemia, without long-term current use of insulin Surgical History History of endoscopy Hx of colonoscopy Hx of cardiac catheterization History of nasal surgery History of carpal tunnel surgery Family History Father No problems noted. Mother Chronic kidney disease (CKD) Heart attack Other Mental health problem Social History Household Members: Spouse and Children Household Members Other:: , kids Housing: House Alcohol intake: never Patient Tobacco Use Status: Never used Tobacco e-Cigarette/Vaping Use: Never Used Second Hand Smoke Exposure: Yes (employees smoked atwork) service: No Current occupational status: disabled Cognitive needs: No Hearing needs: No Vision needs: No Questionnaire PHQ-9 Over the last 2 weeks, how often have you been bothered by any of the following problems? 1. Little interest or pleasure in doing things: not at all 2. Feeling down, depressed, or hopeless: not at all 3. Trouble falling or staying asleep, or sleeping too much: not at all 4. Feeling tired or having little energy: not at all 5. Poor appetite or overeating: not at all 6. Feeling bad about yourself - or that you are a failure or have let yourself or your family down: not at all 7. Trouble concentrating on things, such as reading the newspaper or watching television: not at all 8. Moving or speaking so slowly that other people could have noticed. Or the opposite - being so fidgety or restless that you have been moving around a lot more than usual: not at all 9. Thoughts that you would be better off or of hurting yourself in some way: not at all Total score: 0 Depression Screening Interpretation: Negative (is on Rx) 57820 - PHQ-9 Billing: Yes Source: Developed by Drs. Oneal Rosenberg, Janelle Blum, Larry Martin and colleagues, with an educational pete from [employer]. Thrive Questionnaire Date Thrive assessed: 09/05/22 I am a: Patient What is your living situation today?: I have a steady place to live Within the past 12 months, did the food you bought not last and you didn't have the money to get more?: Never true Within the past 12 months, did you worry whether your food would run out before you got money to buy more?: Never true Do you have trouble paying for medicines?: No Do you have trouble getting transportation to medical appointments?: No Do you have trouble paying your heating and electricity bill?: No Do you have trouble taking care of your child, family member or friend?: No Do you have trouble with day-to-day activities such as bathing, preparing meals, shopping, managing finances, etc.?: No Are you currently unemployed and looking for a job?: No Are you interested in more education?: No Currently or been in a relationship where the following occur: no concerns reported AUDIT C Alcohol Use Questionnaire (AUDIT-C) 1. How often do you have a drink containing alcohol?: Never 3. How often do you have six or more drinks on one occasion?: Never Total Score: 0 Score Reviewed/Action Taken: Yes MALLORIE-7 AMB Questionnaire MALLORIE-7 Date MALLORIE - 7 assessed: 09/05/22 Feeling nervous, anxious, or on edge: 0 = Not at all Not being able to stop or control worryin = Not at all Worrying too much about different things: 0 = Not at all Trouble relaxin = Not at all Being so restless that it is hard to sit still: 0 = Not at all Becoming easily annoyed or irritable: 0 = Not at all Feeling afraid as if something awful might happen: 0 = Not at all Total MALLORIE-7 score (0-4 normal; 5-9 mild; 10-14 moderate; 15-21 severe): 0 Source: Developed by Drs. Oneal Rosenberg, Janelle Blum, Larry Martin and colleagues, with an educational pete from [employer]. Review of Systems Const Denies chills, Reports difficulty sleeping, Reports fatigue, Denies fever(s) and Reports headache(s) (on and off) ENT Denies dysphagia, Reports dizziness (occasional), Denies otalgia, Reports headache(s) (on and off), Denies odynophagia, Denies sinus pain and Denies sore throat Card Denies chest pain, Denies palpitations and Reports dyspnea on exertion (mild) Resp Denies chest congestion, Denies cough, Reports dyspnea on exertion (mild) and Denies wheezing GI Reports abdominal pain (over the epigastric area, often triggered by eating), Reports bloating (frequent), Denies constipation, Denies dysphagia, Denies heartburn, Denies diarrhea, Denies nausea, Denies odynophagia and Denies vomiting Reports erectile dysfunction (unable to tolerate Rx), Denies dysuria and Denies nocturia Musc Reports back pain (chronic - over the lower back), Reports arthralgias (left hip; increased pain and swelling over right wrist lately), Denies joint swelling and Reports tingling (on and off, in both hands and feet) Skin/Breast Denies rash Neuro Reports dizziness (occasional), Reports headache(s) (on and off) and Reports tingling (on and off, in both hands and feet) Psych Reports anxiety Endo Reports fatigue and Denies palpitations Aller/Immun Denies wheezing Physical exam (Primary Care) Vital Signs: Last Vital Signs Pulse 81 09/05/22 08:55 BP 138/92 H 09/05/22 08:55 Pulse Ox 95 09/05/22 08:55 Oxygen Delivery Method Room Air 09/05/22 08:55 BMI result Body Mass Index 37.1 Tobacco/Smoking Status: Tobacco use Status Tobacco use date assessed 09/05/22 09/05/22 09:04 Patient Tobacco Use Status Never used Tobacco 09/05/22 09:04 e-Cigarette/Vaping Use Never Used 09/05/22 09:04 PHQ-9: PHQ-9 Score PHQ-9: Total score 0 09/06/22 09:19 Depression Screening Interpretation: Negative (is on Rx) Thrive Assessment: Date of Thrive Assessment Date Thrive assessed 09/05/22 09/05/22 09:04 Currently or been in a relationship where the following occur: no concerns reported Const General: no acute distress and alert HENMT Ears: TM's normal bilaterally and EAC's normal Throat: Yes posterior oropharynx normal and Yes tonsils normal (no TP congestion) Neck Neck: Yes no lymphadenopathy and Yes supple Resp Auscultation: clear to auscultation bilaterally, no rales and no wheezes Cardio Rate: regular rate Rhythm: regular rhythm Heart sounds: no murmurs GI Palpation (GI): Soft to palpation, Tenderness to palpation present (GI) (mild) in the epigastrum, no guarding, not rigid and No Rebound tenderness present Auscultation: normal bowel sounds Back/Spine/Pelvis Thoracic/Lumbar Spine: lumbar spinal tenderness Skin Rashes: no rashes Extrem General: Yes no clubbing, cyanosis or edema Assessment and Plan Assessment & Plan (1) Postprandial epigastric pain: Comment: Reviewed medication list, he will follow back with PCP for further evaluation- Code(s): R10.13 - Epigastric pain Plan: Suspect gastritis Continue Omeprazole 40 mg QD Barium swallow done back in December 2021 revealed only (+) GERD; gastric emptying time done a couple of weeks ago came back normal He will be scheduled for EGD for further evaluation once he is cleared by [facility] (2) GERD without esophagitis: Code(s): K21.9 - Gastro-esophageal reflux disease without esophagitis Plan: Dietary restrictions reinforced Barium swallow done a few months ago revealed findings of GERD; gastric emptying time done more recently came back normal Continue Omeprazole 40 mg QD (3) Asthma-COPD overlap syndrome: Code(s): J44.9 - Chronic obstructive pulmonary disease, unspecified Plan: Continue Anoro Ellipta 62.5-25 mcg 1 inhalation QD, Flovent Diskus 250 mcg 1 inhalation BID, Daliresp 250 mcg 1 tablet QD, Montelukast 10 mg Q PM and Albuterol HFA 2 inhalations every 6 hours as needed Follow up with pulmonary at [facility] as scheduled (4) Type 2 diabetes mellitus with hyperglycemia, without long-term current use of insulin: Code(s): E11.65 - Type 2 diabetes mellitus with hyperglycemia Plan: HgbA1c was at 6.7% when last checked in August 2022 (in-office HgbA1c was at 8.3% a few months ago on 05/26/22) - goal is < 7.0% Reinforced diabetic diet Continue Glipizide ER 5 mg QD, Lantus 10 units SQ Q PM and Trulicity 3 mg SQ once a week Follow up with [facility] Endocrinology (Dr. Guerrier) as scheduled (5) Benign essential hypertension: Code(s): I10 - Essential (primary) hypertension Plan: Reinforced low sodium diet - goal is systolic BP of 120 mm or less Continue Benicar 40 mg QD, Amlodipine 10 mg QD, Metoprolol ER 100 mg QD, HCTZ 25 mg QD and Hydralazine 50 mg TID Patient is reminded to monitor his blood pressure regularly (6) Pure hypercholesterolemia: Code(s): E78.00 - Pure hypercholesterolemia, unspecified Plan: Was not able to get his follow up labs done prior to his appointment today - have instructed him to try getting these done NIDIA Reinforced low cholesterol diet Continue Atorvastatin 80 mg QD and Ezetimibe 10 mg QD Will recheck his labs and fasting lipids in 3 months for follow-up (7) Migraine: Code(s): G43.909 - Migraine, unspecified, not intractable, without status migrainosus Qualifiers: Migraine type: unspecified Status migrainosus presence: without status migrainosus Intractability: not intractable Qualified Code(s): G43.909 - Migraine, unspecified, not intractable, without status migrainosus Plan: Stable Continue Topiramate 25 mg Q HS for headache prophylaxis (8) Lumbar degenerative disc disease: Code(s): M51.36 - Other intervertebral disc degeneration, lumbar region Plan: Reinforced activity and weight-lifting restrictions Continue Gabapentin 400 mg 1 capsule in AM, 1 capsule in PM and 2 capsules at bedtime Has been referred to [facility] Pain Management for further recommendations and management plan for his chronic low back pain (9) Stasis edema of both lower extremities: Code(s): I87.303 - Chronic venous hypertension (idiopathic) without complications of bilateral lower extremity Plan: Reinforced again to elevate his legs as often as he can and to also wear his compression stockings regularly to help minimize his leg swelling - Compression stockings Rx done Follow up with vascular surgery as scheduled (10) Erectile dysfunction: Code(s): N52.9 - Male erectile dysfunction, unspecified Qualifiers: Erectile dysfunction type: unspecified Qualified Code(s): N52.9 - Male erectile dysfunction, unspecified Plan: Continue Sildenafil 50 mg PRN Follow up with urology as scheduled (11) Insomnia: Code(s): G47.00 - Insomnia, unspecified Qualifiers: Insomnia type: unspecified Qualified Code(s): G47.00 - Insomnia, unspecified Plan: Sleep hygiene reinforced Continue Zolpidem 10 mg Q HS PRN Was tried previously on Lunesta but states that he cannot stand its aftertaste (12) Anxiety: Code(s): F41.9 - Anxiety disorder, unspecified Plan: Continue Lorazepam 0.5 mg 1 to 2 tablets BID PRN (13) Major depressive disorder, recurrent: Code(s): F33.9 - Major depressive disorder, recurrent, unspecified Qualifiers: Active/Remission status: currently active Major depression episode severity: unspecified Qualified Code(s): F33.9 - Major depressive disorder, recurrent, unspecified Plan: Was on Sertraline 50 mg QD in the past but stopped taking it at some point - is not sure when or why but states that he feels okay without the Rx for now Follow up with psychiatry as scheduled (14) Obesity (BMI 30-39.9): Code(s): E66.9 - Obesity, unspecified Plan: Reinforced diet/exercise as tolerated/lose weight Plan Follow up in 3 months Orders: Orders Hemoglobin A1c 3 Months E11.9 - Type 2 diabetes mellitus without complications Lipid Panel 3 Months E78.00 - Pure hypercholesterolemia, unspecified Comprehensive [place]. Panel Fast 3 Months E78.00 - Pure hypercholesterolemia, unspecified Coding Level of Care Code Est Pt Level 4 (02721) Diagnoses Postprandial epigastric pain R10.13 GERD without esophagitis K21.9 Asthma-COPD overlap syndrome J44.9 Type 2 diabetes mellitus with hyperglycemia, without long-term current use of insulin E11.65 Benign essential hypertension I10 Pure hypercholesterolemia E78.00 Migraine without status migrainosus, not intractable, unspecified migraine type G43.909 Migraine type: unspecified Status migrainosus presence: without status migrainosus Intractability: not intractable Lumbar degenerative disc disease M51.36 Stasis edema of both lower extremities I87.303 Erectile dysfunction, unspecified erectile dysfunction type N52.9 Erectile dysfunction type: unspecified Insomnia, unspecified type G47.00 Insomnia type: unspecified Anxiety F41.9 Episode of recurrent major depressive disorder, unspecified depression episode severity F33.9 Active/Remission status: currently active Major depression episode severity: unspecified Obesity (BMI 30-39.9) E66.9
== END 2022-09-05 09:40 | disposition home or self-care (01) ==
PROVIDERS: Visit Provider Internal Medicine
DX: J44.9 Chronic obstructive pulmonary disease, unspecified (principal); E11.65 Type 2 diabetes mellitus with hyperglycemia; F33.9 Major depressive disorder, recurrent, unspecified; R10.13 Epigastric pain; K21.9 Gastro-esophageal reflux disease without esophagitis; I10 Essential (primary) hypertension; E78.00 Pure hypercholesterolemia, unspecified; G43.909 Migraine, unspecified, not intractable, without status migrainosus; M51.36 Other intervertebral disc degeneration, lumbar region; I87.303 Chronic venous hypertension (idiopathic) without complications of bilateral lower extremity; N52.9 Male erectile dysfunction, unspecified; G47.00 Insomnia, unspecified
CPT/HCPCS: 99214

== ENCOUNTER 2022-09-09 13:49 | Outpatient (REF) | payer OTHER, SELFPAY ==
[2022-09-09 17:13] LABS: Estimated Average Glucose 146 mg/dL; Hemoglobin A1c % 6.7 %
[2022-09-09 19:51] LABS: Glucose Random 119 mg/dL (60-115)
== END 2022-09-09 13:50 | disposition home or self-care (01) ==
LOC: HO.LAB 13:49
PROVIDERS: PCP Internal Medicine; Visit Provider Physician Assistant Surgical
DX: E11.9 Type 2 diabetes mellitus without complications (principal); E66.9 Obesity, unspecified; Z79.4 Long term (current) use of insulin
CPT/HCPCS: 36415; 82947; 83036; 99453

== ENCOUNTER → 2022-09-19 10:06 | Outpatient (BNVA) | payer OTHER, SELFPAY | PROVIDERS: Visit Provider Hospitalist | DX: J45.41 Moderate persistent asthma with (acute) exacerbation (principal); J44.9 Chronic obstructive pulmonary disease, unspecified; G47.33 Obstructive sleep apnea (adult) (pediatric); K44.9 Diaphragmatic hernia without obstruction or gangrene | CPT/HCPCS: 99212 ==

== ENCOUNTER 2022-09-24 21:01 | Emergency (ER) | payer OTHER, SELFPAY ==
[2022-09-24 21:02] VITALS: BP 183/102; PULSE 100; RESP 20; TEMP 36.9; O2SAT 96; BMI 37.3
--- NOTE | 2022-09-24 21:12 | PC.NURSE ---
pt brought to ED bed 20 from triage, placed on game trapper and O2 sat. pt ambulated well with steady gait.
--- NOTE | 2022-09-24 21:24 | ED.ALLEREA ---
HPI - Allergic Reaction General Chief complaint: Allergic Reaction Stated complaint: ?allergic reaction ?seafood Time Seen by Provider: 09/24/22 21:19 Source: patient Mode of arrival: ambulatory Limitations: no limitations History of Present Illness HPI narrative: Patient with history of alleviation to shellfish had Hebrew food which did not contain any seafood but patient got very anxious no rash no itching no shortness of breath patient took 2 tablets of Benadryl prior to arrival denies any shortness of breath or throat swelling Related Data Home Medications Medication Instructions Recorded Confirmed aspirin 81 mg tablet,delayed 81 mg PO DAILY 02/18/20 09/05/22 release CPAP (CPAP Machine/Device) 11/19/21 09/05/22 cholecalciferol (vitamin D3) 25 75 mcg PO .Q2days 04/19/22 09/05/22 mcg (1,000 unit) capsule hydralazine 50 mg tablet 50 mg PO TID 07/21/22 09/05/22 metoprolol succinate 50 mg 50 mg PO BID 07/21/22 09/05/22 tablet,extended release 24 hr Previous Rx's Medication Instructions Recorded naproxen 500 mg tablet 500 mg PO BID PRN pain 10 days #20 02/19/20 tabs nebulizer accessories #1 ea 03/04/20 amlodipine 10 mg tablet 10 mg PO DAILY #90 tabs 05/11/20 budesonide 0.5 mg/2 mL suspension 0.5 mg (2 mL) inhalation BID 30 11/17/20 for nebulization days #120 mL mupirocin 2 % topical ointment 1 appl topical TID PRN infection 01/13/21 10 days #66 grams PULSE OXIMETER #1 ea 08/26/21 HIP BRACE (left hip) #1 ea 09/28/21 THERMOMETER #1 ea 09/28/21 ipratropium 0.5 mg-albuterol 3 mg 3 ml inhalation Q6H PRN shortness 11/19/21 (2.5 mg base)/3 mL nebulization of breath or wheezing #180 mL soln azelastine 205.5 mcg (0.15 %) 2 spray intranasal BID 30 days #30 11/24/21 nasal spray mL clotrimazole-betamethasone 1 1 appl topical BID PRN rash #45 11/24/21 %-0.05 % topical cream grams ezetimibe 10 mg tablet (Zetia) 10 mg PO DAILY #90 tabs 11/24/21 fluticasone fur. 200 mcg-umeclid 1 inh inhalation DAILY 30 days #60 11/24/21 62.5 mcg-vilant 25 mcg ea inhalat.powder (Trelegy Ellipta) latanoprost 0.005 % eye drops 1 drp ophthalmic (eye) DAILY #7.5 11/24/21 mL melatonin 5 mg capsule 10 mg PO BEDTIME #30 caps 11/24/21 montelukast 10 mg tablet 10 mg PO QPM #90 tabs 11/24/21 olmesartan 40 mg tablet 40 mg PO DAILY #90 tabs 11/24/21 albuterol sulfate 2.5 mg/3 mL 2.5 mg (3 mL) continuous 01/11/22 (0.083 %) solution for nebulization nebulization QID PRN shortness of breath or wheezing 30 days #480 mL blood-glucose meter (FreeStyle #1 ea 03/01/22 Lite Meter kit) lancets 28 gauge (FreeStyle 28 gauge topical TID #300 ea 03/01/22 Lancets) COMPRESSION STOCKINGS (medium #3 ea 03/03/22 compression - 20 to 30 mm); Knee high lorazepam 0.5 mg tablet See Rx Instructions .Route 03/03/22 .COMPLEX PRN anxiety 30 days #60 tabs alcohol swabs (BD Alcohol Swabs) 1 pad topical TID for diabetes 04/07/22 mellitus #300 pad blood sugar diagnostic (FreeStyle #100 ea 04/07/22 Lite Strips) albuterol sulfate 90 mcg/actuation 2 puff PO QID PRN shortness of 04/18/22 aerosol inhaler (Ventolin HFA) breath or wheezing 90 days #3 multiple units zolpidem 10 mg tablet 10 mg PO BEDTIME PRN insomnia 30 04/18/22 days #30 tabs prednisone 20 mg tablet 40 mg PO DAILY #10 tabs 05/10/22 glipizide 5 mg tablet, extended 5 mg PO DAILY #90 tabs 05/12/22 release 24 hr hydrochlorothiazide 25 mg tablet 25 mg PO DAILY #90 tabs 05/12/22 pen needle, diabetic 31 gauge x #50 ea 05/24/2206/02 (BD Ultra-Fine Mini Pen Needle) dulaglutide 3 mg/0.5 mL 3 mg (0.5 mL) subcut QWEEK #2 mL 05/26/22 subcutaneous pen injector (Trulicity) diphenhydramine HCl 25 mg tablet 25 mg PO TID PRN allergy symptoms 05/27/22 #90 tabs epinephrine 0.3 mg/0.3 mL 0.3 mg (0.3 mL) IM Q4H PRN 05/27/22 injection, auto-injector (EpiPen anaphylaxis #2 ea 2-Dread) insulin glargine 100 unit/mL (3 10 unit (0.1 mL) subcut QPM #15 mL 06/29/22 mL) subcutaneous pen (Lantus Solostar U-100 Insulin) bisacodyl 5 mg tablet,delayed 10 mg PO ONCE colonoscopy prep 1 07/21/22 release (Dulcolax (bisacodyl)) day #2 tabs polyethylene glycol 3350 17 238 g PO ONCE 1 day #238 grams 07/21/22 gram/dose oral powder (Miralax) roflumilast 250 mcg tablet 250 mcg PO DAILY #28 tabs 07/22/22 (Daliresp) lancets 28 gauge (FreeStyle #100 ea 07/25/22 Lancets) blood pressure monitor (Blood #1 ea 07/26/22 Pressure Kit) sildenafil 50 mg tablet 50 mg PO DAILY PRN sexual activity 08/04/22 #10 tabs gabapentin 400 mg capsule See Rx Instructions PO .COMPLEX 28 08/31/22 days #112 caps azithromycin 250 mg tablet 250 mg PO 3XW #12 tabs 09/19/22 omeprazole 40 mg capsule,delayed 40 mg PO DAILY #30 caps 09/19/22 release prednisone 10 mg tablet See Rx Instructions PO DAILY 18 09/19/22 days #63 tabs diphenhydramine HCl 25 mg capsule 25 mg PO TID PRN allergic reaction 09/24/22 (Benadryl) #20 caps Allergies Allergy/AdvReac Type Severity Reaction Status Date / Time iodine [Iodine] Allergy Severe THROAT Verified 09/24/22 21:06 SWELLING lisinopril Allergy Severe Rash Verified 09/24/22 21:06 metformin Allergy Severe diarrhea Verified 09/24/22 21:06 meperidine [From Demerol] Allergy Mild RASH Verified 09/24/22 21:06 oxycodone [From Percocet] AdvReac Mild MOUTH Verified 09/24/22 21:06 DRYNESS,RASH Mercury Detox Allergy Severe Close Uncoded 09/19/22 10:29 Throat Shellfish Allergy Severe THROAT Uncoded 09/19/22 10:29 SWELLING Review of Systems Review of Systems: Yes all other systems are reviewed and are negative PMFSH Past Medical History Medical History Anxiety Asthma Asthma-COPD overlap syndrome Benign essential hypertension Bursitis Chronic rhinitis Claustrophobia Diabetes Diastasis recti Erectile dysfunction GERD (gastroesophageal reflux disease) GERD without esophagitis Hemoptysis Hiatal hernia Hx of fracture of fibula Insomnia Laryngospasm Low back pain Lumbar degenerative disc disease Migraine Obesity (BMI 30-39.9) JOSÉ (obstructive sleep apnea) Pure hypercholesterolemia Stasis edema of both lower extremities Type 2 diabetes mellitus with hyperglycemia, without long-term current use of insulin Surgical History History of carpal tunnel surgery History of endoscopy History of nasal surgery Hx of cardiac catheterization Hx of colonoscopy Family History Family History Father No problems noted. Mother Chronic kidney disease (CKD) Heart attack Other Mental health problem Social History Social History Household Members: Spouse and Children Household Members Other:: , kids Housing: House Alcohol intake: never Patient Tobacco Use Status: Never used Tobacco e-Cigarette/Vaping Use: Never Used Second Hand Smoke Exposure: Yes (employees smoked atwork) Advance Directives: No Advance Directives Information Provided: Yes service: No Current occupational status: disabled Cognitive needs: No Hearing needs: No Vision needs: No Physical Exam ED Vital Signs: Vital Signs - 24 hr 09/24/22 21:02 09/24/22 22:00 Temperature 98.5 F 98.6 F Pulse Rate 100 88 Respiratory Rate 20 18 Blood Pressure 183/102 H 159/98 H Pulse Oximetry 96 100 Oxygen Delivery Method Room Air Room Air BMI result Body Mass Index 37.3 Appearance: Alert. Oriented X3. No acute distress. Anxious Eyes: PERRLA, No Nystagmus ENT: Pharynx normal. Oral Mucosa moist lips and tongue normal no stridor Neck: Normal inspection. Neck supple. CVS: Normal heart rate and rhythm. Pulses normal. Respiratory: No respiratory distress. Equal air entry bilateral, no wheezing/rales/rhonchi Abdomen: Soft and nontender. Bowel sounds are present, no mass palpable, no CVA tenderness Skin: Skin warm and dry. Normal skin color. Normal skin turgor. No rash noticed Extremities: No lower extremity edema. No calf tenderness Neuro: Oriented X 3. Medications Administered Discontinued Medications Generic Name Dose Route Start Last Admin Trade Name Freq PRN Reason Stop Dose Admin Dexamethasone Sodium Phosphate 10 mg 09/24/22 21:31 09/24/22 21:44 Dexamethasone Sod Phosphate 10 Mg/Ml Vial IVPUSH 09/24/22 21:32 10 mg ONCE ONE Administration Medical Decision Making Medical Decision Making [facility] Narrative: Patient likely with anxiety questionable allergic reaction will discharge patient home on prednisone along with advice to continue Benadryl Discharge Plan Discharge Clinical Impression: Allergy to food Patient Disposition: Home, Self-Care Instructions: Food Allergy (ED) Additional Instructions: Take Benadryl 1-2 tablets every 6 hours as needed for allergic reaction Report to the ER if tongue or lip swelling or difficulty in breathing Prescriptions: New diphenhydramine HCl [Benadryl] 25 mg capsule 25 mg PO TID PRN (Reason: allergic reaction) Qty: 20 0RF No Action (DME) nebulizer accessories Misc See Rx Instructions .ROUTE .MEDSUPPLY Qty: 1 11RF Rx Instructions: tubing, mask, nebulizer cup, mouth piece budesonide 0.5 mg/2 mL suspension for nebulization 0.5 mg inhalation BID 30 Days Qty: 120 6RF mupirocin 2 % ointment 1 appl topical TID PRN (Reason: infection) 10 Days Qty: 66 2RF (DME) PULSE OXIMETER See Rx Instructions .Route .MEDSUPPLY Qty: 1 0RF Rx Instructions: As directed (DME) HIP BRACE (left hip) See Rx Instructions .Route .MEDSUPPLY Qty: 1 0RF Rx Instructions: As directed (DME) THERMOMETER See Rx Instructions .Route .MEDSUPPLY Qty: 1 0RF Rx Instructions: As directed ipratropium-albuterol 0.5 mg-3 mg(2.5 mg base)/3 mL solution for nebulization 3 ml inhalation Q6H PRN (Reason: shortness of breath or wheezing) Qty: 180 2RF ezetimibe [Zetia] 10 mg tablet 10 mg PO DAILY Qty: 90 3RF azelastine 205.5 mcg (0.15 %) spray,non-aerosol 2 spray intranasal BID 30 Days Qty: 30 11RF Rx Instructions: administer into each nostril clotrimazole-betamethasone 1-0.05 % cream 1 appl topical BID PRN (Reason: rash) Qty: 45 5RF Trelegy Ellipta 200-62.5-25 mcg blister with device 1 inh inhalation DAILY 30 Days Qty: 60 12RF latanoprost 0.005 % drops 1 drp ophthalmic (eye) DAILY Qty: 7.5 3RF Rx Instructions: as directed melatonin 5 mg capsule 10 mg PO BEDTIME Qty: 30 0RF montelukast 10 mg tablet 10 mg PO QPM Qty: 90 3RF olmesartan 40 mg tablet 40 mg PO DAILY Qty: 90 3RF albuterol sulfate 2.5 mg /3 mL (0.083 %) solution for nebulization 2.5 mg continuous nebulization QID PRN (Reason: shortness of breath or wheezing) 30 Days Qty: 480 5RF (DME) blood-glucose meter [FreeStyle Lite Meter] Kit See Rx Instructions .Route Qty: 1 0RF Rx Instructions: As directed- To test blood sugar three times a day lancets [FreeStyle Lancets] 28 gauge misc 28 gauge topical TID Qty: 300 11RF alcohol swabs [BD Alcohol Swabs] Pads, Medicated 1 pad topical TID Qty: 300 0RF (DME) FreeStyle Lite Strips Strip See Rx Instructions .Route Qty: 100 5RF Rx Instructions: As directed tests 5 X/day albuterol sulfate [Ventolin HFA] 90 mcg/actuation HFA aerosol inhaler 2 puff PO QID PRN (Reason: shortness of breath or wheezing) 90 Days Qty: 3 3RF zolpidem 10 mg tablet 10 mg PO BEDTIME PRN (Reason: insomnia) 30 Days Qty: 30 3RF hydrochlorothiazide 25 mg tablet 25 mg PO DAILY Qty: 90 1RF glipizide 5 mg tablet extended release 24hr 5 mg PO DAILY Qty: 90 1RF (DME) pen needle, diabetic [BD Ultra-Fine Mini Pen Needle] 31 gauge x 3/16 needle See Rx Instructions miscellaneous .MEDSUPPLY Qty: 50 4RF Rx Instructions: As directed 1x daily. diphenhydramine HCl 25 mg tablet 25 mg PO TID PRN (Reason: allergy symptoms) Qty: 90 2RF epinephrine [EpiPen 2-Dread] 0.3 mg/0.3 mL auto-injector 0.3 mg IM Q4H PRN (Reason: anaphylaxis) Qty: 2 0RF insulin glargine [Lantus Solostar U-100 Insulin] 100 unit/mL (3 mL) insulin pen 10 unit subcut QPM Qty: 15 2RF roflumilast [Daliresp] 250 mcg tablet 250 mcg PO DAILY Qty: 28 11RF (DME) lancets [FreeStyle Lancets] 28 gauge misc See Rx Instructions .Route Qty: 100 4RF Rx Instructions: As directed 4 X/day (DME) blood pressure monitor [Blood Pressure Kit] Kit See Rx Instructions .Route Qty: 1 0RF Rx Instructions: Take BP up to once daily and keep a log sildenafil 50 mg tablet 50 mg PO DAILY PRN (Reason: sexual activity) Qty: 10 1RF gabapentin 400 mg capsule See Rx Instructions PO .COMPLEX 28 Days Qty: 112 1RF Rx Instructions: 1 capsule BID and 2 capsules at bedtime orally -(4 capsules a day in total) prednisone 20 mg tablet 40 mg PO DAILY Qty: 10 0RF aspirin 81 mg tablet,delayed release (DR/EC) 81 mg PO DAILY naproxen 500 mg tablet 500 mg PO BID PRN (Reason: pain) 10 Days Qty: 20 0RF (DME) COMPRESSION STOCKINGS (medium compression - 20 to 30 mm); Knee high medium compression See Rx Instructions .Route .MEDSUPPLY Qty: 3 11RF Rx Instructions: As directed lorazepam 0.5 mg tablet See Rx Instructions .ROUTE .COMPLEX PRN (Reason: anxiety) 30 Days Qty: 60 0RF Rx Instructions: 1 to 2 tablets orally twice a day as needed; PRN; amlodipine 10 mg tablet 10 mg PO DAILY Qty: 90 1RF (DME) CPAP Machine/Device Device See Rx Instructions .Route Rx Instructions: As directed Trulicity 3 mg/0.5 mL pen injector 3 mg subcut QWEEK Qty: 2 5RF cholecalciferol (vitamin D3) 25 mcg (1,000 unit) capsule 75 mcg PO .Q2days hydralazine 50 mg tablet 50 mg PO TID metoprolol succinate 50 mg tablet extended release 24 hr 50 mg PO BID bisacodyl [Dulcolax (bisacodyl)] 5 mg tablet,delayed release (DR/EC) 10 mg PO ONCE 1 Days Qty: 2 0RF Rx Instructions: Take 2 tablets by mouth at 12:00pm the day before your procedure. polyethylene glycol 3350 [Miralax] 17 gram/dose powder 238 g PO ONCE 1 Days Qty: 238 0RF Rx Instructions: Take as directed by mouth the day before your procedure. azithromycin 250 mg tablet 250 mg PO 3XW Qty: 12 2RF prednisone 10 mg tablet See Rx Instructions PO DAILY 18 Days Qty: 63 0RF Rx Instructions: PO daily; Take 6 tabs daily x 3 days, then 5 tabs x 3 days, then 4 tabs x 3 days, then 3 tabs x 3 days, then 2 tabs daily x 3 days, then 1 tab x 3 days to complete. omeprazole 40 mg capsule,delayed release(DR/EC) 40 mg PO DAILY Qty: 30 11RF Interventions: ED Discharge Assessment Last Done: 09/24/22 23:25 Discharge Date/Time: 09/24/22 23:34
[2022-09-24 22:00] VITALS: BP 159/98; PULSE 88; RESP 18; TEMP 37; O2SAT 100
== END 2022-09-24 23:34 | disposition home or self-care (01) ==
PROVIDERS: Emergency Provider Internal Medicine; PCP Internal Medicine
DX: T78.1XXA Other adverse food reactions, not elsewhere classified, initial encounter (principal); X58.XXXA Exposure to other specified factors, initial encounter
CPT/HCPCS: 96374; 99283; 99284; J1100

== ENCOUNTER 2022-11-04 09:29 | Outpatient (AMB) | payer OTHER, SELFPAY ==
--- NOTE | 2022-11-04 09:39 | A.OFFVIS_ITS ---
Intake Vital Signs 11/04/22 09:46 Height 5 ft 7 in Weight 238 lb 8.642 oz BMI 37.4 BP 114/88 Blood Pressure Location Rt brachial Position Sitting Pulse 97 Pulse Source Pulse Oximeter Intake Visit Reasons: F/up T2DM Intake Note: Patient presents today to follow up on Type 2 Diabetes Mellitus. 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: No Accompanied by: Self / Same As Patient Allergies iodine [Iodine] Allergy (Severe, Verified 11/04/22 09:46) THROAT SWELLING lisinopril Allergy (Severe, Verified 11/04/22 09:46) Rash metformin Allergy (Severe, Verified 11/04/22 09:46) diarrhea meperidine [From Demerol] Allergy (Mild, Verified 11/04/22 09:46) RASH oxycodone [From Percocet] Adverse Reaction (Mild, Verified 11/04/22 09:46) MOUTH DRYNESS,RASH Mercury Detox Allergy (Severe, Uncoded 11/04/22 09:46) Close Throat Shellfish Allergy (Severe, Uncoded 11/04/22 09:46) THROAT SWELLING HPI HPI Comments History of Present Illness Details 57 YO M who is seen in consultation for T2DM at the request of PCP. Initially diagnosed with T2DM in last yr . Was initially started on treatment with metformin.Could not tolerate b/c of diaarhea Current regimen Glipizide 5 mg Trulicity 3 mg Qwkly Lantus 10 units . Glucometer download shows she is checking his point cares 2 times a day. Average glucose is 149 with range of 103-222. 80% range with 20% hyperglycemia and no hypoglycemia Reports low sugars never . Family history of T2DM in mother, brother, sister . Has eyes checked yearly, last eye exam needs to make appt , denies retinopathy. Has neuropathy, , sees podiatry last saw 2 yrs ago . Denies nephropathy, on LUIGI/ARB. Has HLD, on statin. Denies CAD. Not Had diabetes education. [facility] Medical History Anxiety Asthma Asthma-COPD overlap syndrome Benign essential hypertension Bursitis Chronic rhinitis Claustrophobia Diabetes Diastasis recti Erectile dysfunction GERD (gastroesophageal reflux disease) GERD without esophagitis Hemoptysis Hiatal hernia Hx of fracture of fibula Insomnia Laryngospasm Low back pain Lumbar degenerative disc disease Migraine Obesity (BMI 30-39.9) JOSÉ (obstructive sleep apnea) Pure hypercholesterolemia Stasis edema of both lower extremities Type 2 diabetes mellitus with hyperglycemia, without long-term current use of insulin Surgical History History of carpal tunnel surgery History of endoscopy History of nasal surgery Hx of cardiac catheterization Hx of colonoscopy Family History Father No problems noted. Mother Chronic kidney disease (CKD) Heart attack Other Mental health problem Social History Household Members: Spouse and Children Household Members Other:: , kids Housing: House Alcohol intake: never Patient Tobacco Use Status: Never used Tobacco e-Cigarette/Vaping Use: Never Used Second Hand Smoke Exposure: Yes (employees smoked atwork) service: No Current occupational status: disabled Cognitive needs: No Hearing needs: No Vision needs: No Physical Exam Absence of Cushingoid features. Absence of acromegalic features. Neck exam reveals nl size thyroid about 15 gms. No thyroid nodules palpable. No carotid bruits present. Lungs CTA. Heart S1 S2, Reg R/R. No M/R/ G. Skin exam reveals absence of vitiligo or acanthosis nigricans. Abdominal exam reveals Soft NT/ND with NA BS. No organomegaly present. Neck Other: . Extrem Other: Visual exam of foot performed. No ulcerations or open lesions. No onchomycosis, no callouses.Pulses 2 + distally Sensation intact to monofilament exam. Vibratory sensation sensed is intact with 128 Hz tuning fork Assessment & Plan Assessment & Plan (1) Type 2 diabetes mellitus with hyperglycemia, without long-term current use of insulin: Code(s): E11.65 - Type 2 diabetes mellitus with hyperglycemia Plan: This is a 57-year-old male with a history of type 2 diabetes being treated with glipizide, Trulicity and basal insulin with excellent improved glycemic control and no known microvascular or macrovascular complications. The plan is to continue the current treatment. At this point, patient returned to the care of his primary care provider and back to endocrinology was HbA1c deteriorates. His primary care provider might want to prescribe a Lola 2 which might be covered now by his insurance because he is taking 1 shot of insulin per day. Coding Level of Care Code Est Pt Level 4 (91465) Diagnoses Type 2 diabetes mellitus with hyperglycemia, without long-term current use of insulin E11.65
[2022-11-04 09:46] VITALS: BP 114/88; PULSE 97; BMI 37.4
[2022-11-04 09:55] LABS: Glucose, Whole Blood 209 mg/dL (60-115)
== END 2022-11-04 10:35 | disposition home or self-care (01) ==
PROVIDERS: PCP Internal Medicine; Visit Provider Internal Medicine Endocrinology, Diabetes & Metabolism
DX: E11.65 Type 2 diabetes mellitus with hyperglycemia (principal)
CPT/HCPCS: 99214

== ENCOUNTER → 2022-11-04 09:29 | Outpatient (BNVA) | payer OTHER, SELFPAY | PROVIDERS: PCP Internal Medicine; Visit Provider Internal Medicine Endocrinology, Diabetes & Metabolism | DX: E11.65 Type 2 diabetes mellitus with hyperglycemia (principal); E11.40 Type 2 diabetes mellitus with diabetic neuropathy, unspecified; E78.5 Hyperlipidemia, unspecified; Z83.3 Family history of diabetes mellitus; Z79.899 Other long term (current) drug therapy; Z79.85 Long-term (current) use of injectable non-insulin antidiabetic drugs; Z79.4 Long term (current) use of insulin | CPT/HCPCS: 82947; 99212 ==

== ENCOUNTER 2022-11-25 09:46 | Outpatient (AMB) | payer OTHER, SELFPAY ==
--- NOTE | 2022-11-25 09:49 | MHC.OFFVIS ---
Intake Vital Signs 11/25/22 09:51 Height 5 ft 7 in Weight 235 lb BMI 36.8 BP 124/78 Blood Pressure Location Lt brachial Position Sitting Pulse 85 Pulse Source Pulse Oximeter Pulse Oximetry (%) 97 Oxygen Delivery Method Room Air Intake Visit Reasons: CPAP Mask Discuss Licensed Sales Assistant Required: No Allergies iodine [Iodine] Allergy (Severe, Verified 11/25/22 09:53) THROAT SWELLING lisinopril Allergy (Severe, Verified 11/25/22 09:53) Rash metformin Allergy (Severe, Verified 11/25/22 09:53) diarrhea meperidine [From Demerol] Allergy (Mild, Verified 11/25/22 09:53) RASH oxycodone [From Percocet] Adverse Reaction (Mild, Verified 11/25/22 09:53) MOUTH DRYNESS,RASH Mercury Detox Allergy (Severe, Uncoded 11/25/22 09:53) Close Throat Shellfish Allergy (Severe, Uncoded 11/25/22 09:53) THROAT SWELLING HPI HPI Comments History of Present Illness Details The patient is a 57-year-old gentleman with history of reflux disease, hiatal hernia and uncontrolled asthma. He has had multiple exacerbations required prednisone. At least twice in the last month. He has had x-rays demonstrating no acute disease although he still having worsening respiratory symptoms specially at nighttime. He did have a CBC which is unremarkable. He has also had allergy testing in the past and he is allergic to multiple things. He has been taking antihistamines and leukotriene inhibitors without any significant improvement in his symptoms. Dealing the have some is prednisone. He also describes a chronic bronchitis with mucus production every night and congestion in the chest area. He does know about the reflux and continues try reflux diet. He does have a specialist for this. We talked about the importance of reflux therapy and also sleeping elevated to minimize micro aspirations into the lungs. Patient also has a hard time sleeping. He wakes up multiple times with shortness of breath. He also wakes up tired with headaches. His [place] score is elevated 10/24. The patient has never had a sleep study. He will have to get a sleep study at this time. 04/26/2022 the patient is here for pulmonary follow-up visit. He is still struggling with CPAP. Still getting a very dry mouth. He is using a nasal mask. I was able to provide him with a F20 fullface mask large. Explained to him that at this point he needs to use a fullface mask to minimize the dryness of the mouth due to opening of his mouth. He did not have a chinstrap available. I am hopeful that with a fullface mask will be able to tolerated better. I did download the data from the machine. It shows how much effort he but seem to trying to use the CPAP. He puts it on takes it off at least 10 times a night. This med is very cumbersome for him. And he does want feel better. So therefore the fullface mask was provided for him. Will reassess him in 2 months with hopes that he tolerating it better and if anything he can always bring the machine and or again download the data to be able to adjusted further. Patient continues to have dyspnea on exertion. With minimal activity he gets very short of breath. Moderate severity. He uses his rescue inhaler and also has had to use prednisone. We did review his last pulmonary function studies demonstrating obstructive lung disease consistent with asthma COPD overlap syndrome. Will go ahead and refer the patient to rehab in order to increase his exercise capacity and hopefully improve his symptoms. The patient also complains of chronic bronchitis with chest congestion. Will also try as short course of azithromycin to see if we can improve his symptoms. 06/20/2022 the patient is here for a pulmonary follow-up visit. He continues complaint of dyspnea on exertion. Moderate severity. He did undergo pulmonary function studies. He does have a moderate obstruction consistent with asthma COPD overlap syndrome. The patient is already medically maximized on Trelegy inhaler. He still requires his nebulizer a couple times a day. Is very winded with activity. Will go ahead and request Daliresp to see if they can help decrease exacerbations. In the meantime we can also do allergy testing to see if this an allergic component that can be treated. He does respond to prednisone he does takes it once in a while when his breathing is acting up. The patient currently is using a full face months with the CPAP. However, he did get a nasal mask. I did call his [employer] company to see if they can swab his mask for an F20. He still struggling with the CPAP. He wakes up multiple times. He is using a sleep aid. Still, the CPAP therapy continues to be affecting beneficial. He does try to use it for the required time. Based on his pulmonary function studies in his shortness of breath he will be also good candidate for pulmonary rehabilitation. Will request rehab at this time. 09/19/2022 the patient is here for a pulmonary follow-up visit. He has been having worsening respiratory symptoms with worsening cough chest tightness and wheezing. He has been using his nebulizer and his rescue medicine every treated for hours. He is also waking up coughing. He has been getting worse in the last few weeks. He continues uses respiratory therapy with only partial improvement. He did have blood work done no evidence of any eosinophilia or significant allergies to consider biologics. He tried and failed Daliresp. Will go ahead and start him on azithromycin 3 times a week. At this point he is going to need some prednisone. Will monitor closely his sugars. He is also using the CPAP. CPAP therapy continues to be affecting beneficial. He is getting used to it. With increased cough is been hard for him to tolerated. But he does from find that is very helpful. Therefore he will continue to use especially once he starts feeling better. 11/25/2022 the patient is here for a pulmonary follow-up visit. The patient has been having difficulties with his asthma. Complaining of chest tightness and wheezing. Moderate severity. He has been using his rescue inhaler multiple times a day. He continues using the Trelegy inhaler and also his allergy medicines. At this point his asthma as uncontrolled with frequent exacerbations. Therefore we will request additional blood work and allergy testing to see if he is a candidate for biologics. In the meantime he continues uses CPAP machine. CPAP therapy continues to be affecting beneficial. Is not clear if he is getting the right mask from his DME company. Should be getting the F20 mask. Well was resubmit a prescription for supplies for him. We did call the DME and they did state that he got the right mask. At this point will provide him with a sample mask in the meantime. He will continue to work with the DME to make sure that his getting proper supplies. The CPAP therapy again continues to be affecting beneficial he does use it for more than 4 hours a night. [facility] Medical History Anxiety Asthma Asthma-COPD overlap syndrome Benign essential hypertension Bursitis Chronic rhinitis Claustrophobia Diabetes Diastasis recti Erectile dysfunction GERD (gastroesophageal reflux disease) GERD without esophagitis Hemoptysis Hiatal hernia Hx of fracture of fibula Insomnia Laryngospasm Low back pain Lumbar degenerative disc disease Migraine Obesity (BMI 30-39.9) JOSÉ (obstructive sleep apnea) Pure hypercholesterolemia Stasis edema of both lower extremities Type 2 diabetes mellitus with hyperglycemia, without long-term current use of insulin Surgical History History of carpal tunnel surgery History of endoscopy History of nasal surgery Hx of cardiac catheterization Hx of colonoscopy Family History Father No problems noted. Mother Chronic kidney disease (CKD) Heart attack Other Mental health problem Social History Household Members: Spouse and Children Household Members Other:: , kids Housing: House Alcohol intake: never Patient Tobacco Use Status: Never used Tobacco e-Cigarette/Vaping Use: Never Used Second Hand Smoke Exposure: Yes (employees smoked atwork) service: No Current occupational status: disabled Cognitive needs: No Hearing needs: No Vision needs: No Review of Systems Const Denies chills, Reports difficulty sleeping, Reports fatigue, Denies fever(s) and Reports headache(s) (on and off) ENT Denies dysphagia, Reports dizziness (occasional), Denies otalgia, Reports headache(s) (on and off), Denies odynophagia, Denies sinus pain and Denies sore throat Card Denies palpitations, Reports dyspnea (associated with epigastric pain triggered by eating) and Reports dyspnea on exertion (mild) Resp Reports chest congestion, Reports cough, Reports dyspnea (associated with epigastric pain triggered by eating), Reports dyspnea on exertion (mild) and Denies wheezing GI Denies constipation, Denies dysphagia, Reports dyspepsia, Reports heartburn, Denies diarrhea, Denies nausea, Denies odynophagia and Denies vomiting Reports erectile dysfunction (unable to tolerate Rx), Denies dysuria and Denies nocturia Musc Reports back pain (chronic - over the lower back), Reports arthralgias (left hip; increased pain and swelling over right wrist lately), Denies joint swelling and Reports tingling (on and off, in both hands and feet) Neuro Reports dizziness (occasional), Reports headache(s) (on and off) and Reports tingling (on and off, in both hands and feet) Psych Reports anxiety Endo Reports fatigue and Denies palpitations Aller/Immun Denies wheezing Physical Exam Vital Signs: Last Vital Signs Pulse 85 11/25/22 09:51 BP 124/78 11/25/22 09:51 Pulse Ox 97 11/25/22 09:51 Oxygen Delivery Method Room Air 11/25/22 09:51 BMI result Body Mass Index 36.8 Const General: cooperative, healthy appearing, comfortable, no acute distress and well developed Orientation/consciousness: patient oriented x3 Limitations: no limitations Neck Neck: Yes normal visual inspection and Yes full ROM Chest Chest palpation & inspection: normal inspection of the chest Resp Effort & Inspection: normal respiratory effort and able to speak in complete sentences Auscultation: wheezes and diminished lung sounds Cardio Rate: regular rate Rhythm: regular rhythm Heart sounds: normal S1 and S2 Skin General skin exam: no rashes or lesions noted Neuro General: patient oriented x3 Extrem General: Yes normal to inspection Assessment & Plan Assessment & Plan (1) Hiatal hernia: Code(s): K44.9 - Diaphragmatic hernia without obstruction or gangrene (2) Asthma exacerbation: Code(s): J45.901 - Unspecified asthma with (acute) exacerbation Qualifiers: Asthma persistence: persistent Asthma severity: moderate Qualified Code(s): J45.41 - Moderate persistent asthma with (acute) exacerbation Plan continue Trelegy 200mg DARÍO as needed Bloodwork and allergy testing continue Singulair continue Daliresp Prednisone taper maybe a good candidate for Biologic therapy for his uncontrolled asthma continue CPAP, Requesting F20 mask F/U 3 months Orders: Orders Rast Allergen 11/25/22 J45.901 - Unspecified asthma with (acute) exacerbation Immunoglobulin E 11/25/22 J45.901 - Unspecified asthma with (acute) exacerbation Complete Blood Count Auto Diff 11/25/22 J45.901 - Unspecified asthma with (acute) exacerbation Immunoglobulins,IgG IgA IgM 11/25/22 J45.901 - Unspecified asthma with (acute) exacerbation Medications: New prednisone PO daily; Take 2 by mouth daily x 5 days, then 1 tab daily x 5 days 10 days 15 tabs 0RF Coding Level of Care Code Est Pt Level 4 (81967) Diagnoses Hiatal hernia K44.9 Moderate persistent asthma with exacerbation J45.41 Asthma persistence: persistent Asthma severity: moderate Time Spent (min) 17
[2022-11-25 09:51] VITALS: BP 124/78; PULSE 85; O2SAT 97; BMI 36.8
== END 2022-11-25 10:20 | disposition home or self-care (01) ==
PROVIDERS: PCP Internal Medicine; Visit Provider Hospitalist
DX: K44.9 Diaphragmatic hernia without obstruction or gangrene (principal); J45.41 Moderate persistent asthma with (acute) exacerbation
CPT/HCPCS: 99214

== ENCOUNTER → 2022-11-25 09:46 | Outpatient (BNVA) | payer OTHER, SELFPAY | PROVIDERS: PCP Internal Medicine; Visit Provider Hospitalist | DX: J45.41 Moderate persistent asthma with (acute) exacerbation (principal); K44.9 Diaphragmatic hernia without obstruction or gangrene; Z79.899 Other long term (current) drug therapy | CPT/HCPCS: 99212 ==

== ENCOUNTER 2022-12-29 09:39 | Outpatient (AMB) | payer OTHER, SELFPAY ==
--- NOTE | 2022-12-29 09:44 | A.OFFVIS_ITS ---
Intake Vital Signs 12/29/22 09:47 Height 5 ft 7 in Weight 241 lb 2.971 oz BMI 37.8 BP 164/100 H Blood Pressure Location Lt brachial Position Sitting Pulse 83 Intake Visit Reasons: 6 mth f/up bp Intake Note: 6 month follow up w/ EKG Biomathematician Required: No Accompanied by: Self / Same As Patient Allergies iodine [Iodine] Allergy (Severe, Verified 12/29/22 09:47) THROAT SWELLING lisinopril Allergy (Severe, Verified 12/29/22 09:47) Rash metformin Allergy (Severe, Verified 12/29/22 09:47) diarrhea meperidine [From Demerol] Allergy (Mild, Verified 12/29/22 09:47) RASH oxycodone [From Percocet] Adverse Reaction (Mild, Verified 12/29/22 09:47) MOUTH DRYNESS,RASH Mercury Detox Allergy (Severe, Uncoded 12/29/22 09:47) Close Throat Shellfish Allergy (Severe, Uncoded 12/29/22 09:47) THROAT SWELLING Medication List - Last Reconciled 12/29/22 by Didier Burch MD albuterol sulfate 2.5 mg (3 mL) continuous nebulization QID PRN 30 days albuterol sulfate 90 mcg/actuation (Ventolin HFA) 2 puffs PO QID PRN 90 days alcohol swabs (BD Alcohol Swabs) 1 pad topical TID amlodipine 10 mg PO DAILY aspirin 81 mg PO DAILY azelastine 2 sprays intranasal BID 30 days azithromycin 250 mg PO 3XW bisacodyl (Dulcolax (bisacodyl)) 10 mg (2 x 5 mg) PO ONCE 1 day blood pressure monitor (Blood Pressure Kit) Take BP up to once daily and keep a log blood sugar diagnostic (FreeStyle Lite Strips) As directed tests 5 X/day blood-glucose meter (FreeStyle Lite Meter kit) As directed- To test blood sugar three times a day budesonide 0.5 mg (2 mL) inhalation BID 30 days cholecalciferol (vitamin D3) 75 mcg PO .Q2days clotrimazole-betamethasone 1-0.05 % 1 appl topical BID PRN [COMPRESSION STOCKINGS (medium compression - 20 to 30 mm); Knee high As directed ] CPAP (CPAP Machine/Device) As directed diphenhydramine HCl (Benadryl) 25 mg PO TID PRN dulaglutide (Trulicity) 3 mg (0.5 mL) subcut QWEEK epinephrine (EpiPen 2-Dread) 0.3 mg (0.3 mL) IM Q4H PRN ezetimibe (Zetia) 10 mg PO DAILY [id number] 200-62.5-25 mcg (Trelegy Ellipta) 1 inh inhalation DAILY 30 days gabapentin 1 capsule BID and 2 capsules at bedtime orally -(4 capsules a day in total) 28 days glipizide ER 5 mg PO DAILY [HIP BRACE (left hip) As directed] hydralazine 50 mg PO TID hydrochlorothiazide 25 mg PO DAILY insulin glargine (Lantus Solostar U-100 Insulin) 10 units (0.1 mL) subcut QPM ipratropium-albuterol 0.5 mg-3 mg(2.5 mg base)/3 mL 3 mL inhalation Q6H PRN lancets (FreeStyle Lancets) 28 gauge topical TID lancets (FreeStyle Lancets) As directed 4 X/day latanoprost 0.005% 1 drp ophthalmic (eye) DAILY lorazepam 1 to 2 tablets orally twice a day as needed; PRN; 30 days melatonin 10 mg (2 x 5 mg) PO BEDTIME metoprolol succinate ER 50 mg PO BID montelukast 10 mg PO QPM mupirocin 2% 1 appl topical TID PRN 10 days naproxen 500 mg PO BID PRN 10 days nebulizer accessories tubing, mask, nebulizer cup, mouth piece nebulizers As directed olmesartan 40 mg PO DAILY omeprazole 40 mg PO DAILY pen needle, diabetic (BD Ultra-Fine Mini Pen Needle) As directed 1x daily. polyethylene glycol 3350 (Miralax) 238 grams PO ONCE 1 day prednisone PO daily; Take 6 tabs daily x 3 days, then 5 tabs x 3 days, then 4 tabs x 3 days, then 3 tabs x 3 days, then 2 tabs daily x 3 days, then 1 tab x 3 days to complete. 18 days prednisone PO daily; Take 2 by mouth daily x 5 days, then 1 tab daily x 5 days 10 days [PULSE OXIMETER As directed] roflumilast (Daliresp) 250 mcg PO DAILY sildenafil 50 mg PO DAILY PRN tamsulosin 0.4 mg PO DAILY [THERMOMETER As directed] zolpidem 10 mg PO BEDTIME PRN 30 days HPI HPI Comments History of Present Illness Details Keaton returns for follow-up. In the past, he was seen regarding chest pains. Underwent cardiac catheterization but did not have any significant CAD. Otherwise, has hypertension and several blood pressures at different times have been on the higher side. He has chronic shortness of breath which is mainly respiratory in nature and he does have asthma. Otherwise, no new concerns since last seen. [facility] Medical History Anxiety Asthma Asthma-COPD overlap syndrome Benign essential hypertension Bursitis Chronic rhinitis Claustrophobia Diabetes Diastasis recti Erectile dysfunction GERD (gastroesophageal reflux disease) GERD without esophagitis Hemoptysis Hiatal hernia Hx of fracture of fibula Insomnia Laryngospasm Low back pain Lumbar degenerative disc disease Migraine Obesity (BMI 30-39.9) JOSÉ (obstructive sleep apnea) Pure hypercholesterolemia Stasis edema of both lower extremities Type 2 diabetes mellitus with hyperglycemia, without long-term current use of insulin Surgical History History of endoscopy Hx of colonoscopy Hx of cardiac catheterization History of nasal surgery History of carpal tunnel surgery Family History Father No problems noted. Mother Chronic kidney disease (CKD) Heart attack Other Mental health problem Social History Household Members: Spouse and Children Household Members Other:: , kids Housing: House Alcohol intake: never Patient Tobacco Use Status: Never used Tobacco e-Cigarette/Vaping Use: Never Used Second Hand Smoke Exposure: Yes (employees smoked atwork) service: No Current occupational status: disabled Cognitive needs: No Hearing needs: No Vision needs: No Review of Systems Const Denies weakness ENT Denies dizziness Card Denies chest pain, Denies chest pain with activity, Denies syncope, Denies rapid heart rate, Denies pedal edema, Denies edema, Denies leg edema, Denies lightheadedness, Denies palpitations, Denies dyspnea, Denies dyspnea on exertion and Denies orthopnea Resp Denies cough, Denies dyspnea and Denies dyspnea on exertion GI Denies hematochezia and Denies change in stool character Musc Denies abnormal gait, Denies muscle cramps, Denies muscle weakness, Denies numbness, Denies radiating pain into limb and Denies tingling Neuro Denies abnormal gait, Denies dizziness, Denies syncope, Denies numbness, Denies tingling and Denies weakness Endo Denies palpitations Physical Exam Vital Signs: Last Vital Signs Pulse 83 12/29/22 09:47 BP 164/100 H 12/29/22 09:47 BMI result Body Mass Index 37.8 Const General: comfortable and no acute distress Orientation/consciousness: patient oriented x3 HEENT Other: Unremarkable Head: Yes normal to inspection Neck Neck: Yes normal visual inspection Chest Chest palpation & inspection: normal inspection of the chest Resp Auscultation: clear to auscultation bilaterally Cardio Palpation: normal PMI Heart sounds: S1 normal heart sound present, S2 normal heart sound present, no gallops, no murmurs and no rubs GI Palpation (GI): Soft to palpation Back/Spine/Pelvis Other: unremarkable Skin General skin exam: no rashes or lesions noted Neuro General: patient oriented x3 Extrem General: Yes normal to inspection Psych Mental Status: mental status grossly normal Office Procedures EKG Details: EKG with sinus rhythm at 83/Min; borderline MO at 204 millisecond; right bundle- branch block pattern. [id number], Complete Assessment & Plan Assessment & Plan (1) SOB (shortness of breath): Code(s): R06.02 - Shortness of breath (2) Essential hypertension: Code(s): I10 - Essential (primary) hypertension Plan Pertinent studies reviewed. Cardiac catheterization- 2019-mild luminal irregularities in the LAD but essentially otherwise unremarkable coronaries. [id number] 60-60% with mild diastolic dysfunction but otherwise unremarkable. Pulmonary function [id number] obstructive airway disease with significant response to bronchodilator therapy, consistent with asthma/COPD overlap syndrome. Overall, shortness of breath probably from pulmonary etiology. Much less likely to be cardiac as there is no evidence of any cardiomyopathy or significant CAD. His blood pressure is high today but a few other readings are on the lower side. So probably has high as well as normal readings at different times. That could also contribute to some shortness of breath. He is listed to be on EpiPen and also on metoprolol. We discussed interactions between them. Considering the fact he also has asthma, we will stop the beta- blockers. For blood pressure management, will increase hydralazine to 100 mg t.i.d.. He is also on olmesartan. Otherwise stable. Follow-up in 1 year. In the interim, he will call with blood pressure concerns. Total time spent including review of data, counseling, documentation, coordinati on of care-32 minutes. Medications: New hydralazine 100 mg PO TID 270 tabs 3RF 90 days Discontinued metoprolol succinate ER Discontinued Reason: Doctor's Order 50 mg PO BID 180 tabs 0RF I10 - Essential (primary) hypertension Coding Level of Care Code Est Pt Level 4 (02404) Diagnoses SOB (shortness of breath) R06.02 Essential hypertension I10 CPT Codes EKG - CPT: 25555-[id number], Complete ([id number])
[2022-12-29 09:47] VITALS: BP 164/100; PULSE 83; BMI 37.8
== END 2022-12-29 10:07 | disposition home or self-care (01) ==
PROVIDERS: PCP Internal Medicine; Visit Provider Internal Medicine
DX: R06.02 Shortness of breath (principal); I10 Essential (primary) hypertension
CPT/HCPCS: 93010; 99214

== ENCOUNTER → 2022-12-29 09:39 | Outpatient (BNVA) | payer OTHER, SELFPAY | PROVIDERS: PCP Internal Medicine; Visit Provider Internal Medicine | DX: R06.02 Shortness of breath (principal); I10 Essential (primary) hypertension | CPT/HCPCS: 93005; 99212 ==

== ENCOUNTER 2023-03-07 13:12 | Outpatient (AMB) | payer OTHER, SELFPAY ==
[2023-03-07 13:14] VITALS: BP 130/80; PULSE 88; O2SAT 96; BMI 36.5
--- NOTE | 2023-03-07 13:14 | MHC.PC.OV ---
Vital Signs 03/07/23 13:14 Height 5 ft 7 in Weight 233 lb 6 oz BMI 36.5 BP 130/80 Blood Pressure Location Lt brachial Position Sitting Pulse 88 Pulse Source Pulse Oximeter Pulse Oximetry (%) 96 Oxygen Delivery Method Room Air Intake Visit Reasons: 3 month f/u Cigar Binder Required: No Accompanied by: Self / Same As Patient Allergies iodine [Iodine] Allergy (Severe, Verified 03/07/23 13:39) THROAT SWELLING lisinopril Allergy (Severe, Verified 03/07/23 13:39) Rash metformin Allergy (Severe, Verified 03/07/23 13:39) diarrhea meperidine [From Demerol] Allergy (Mild, Verified 03/07/23 13:39) RASH oxycodone [From Percocet] Adverse Reaction (Mild, Verified 03/07/23 13:39) MOUTH DRYNESS,RASH Mercury Detox Allergy (Severe, Uncoded 03/07/23 13:39) Close Throat Shellfish Allergy (Severe, Uncoded 03/07/23 13:39) THROAT SWELLING Medication List - Last Reconciled 03/07/23 by Oliverio Emerson MD albuterol sulfate 2.5 mg (3 mL) continuous nebulization QID PRN 30 days albuterol sulfate 90 mcg/actuation (Ventolin HFA) 2 puffs PO QID PRN 90 days alcohol swabs (BD Alcohol Swabs) 1 pad topical TID amlodipine 10 mg PO DAILY aspirin 81 mg PO DAILY azelastine 2 sprays intranasal BID 30 days azithromycin 250 mg PO 3XW bisacodyl (Dulcolax (bisacodyl)) 10 mg (2 x 5 mg) PO ONCE 1 day blood pressure monitor (Blood Pressure Kit) Take BP up to once daily and keep a log blood sugar diagnostic (FreeStyle Lite Strips) As directed tests 5 X/day blood-glucose meter (FreeStyle Lite Meter kit) As directed- To test blood sugar three times a day budesonide 0.5 mg (2 mL) inhalation BID 30 days cholecalciferol (vitamin D3) 75 mcg PO .Q2days clotrimazole-betamethasone 1-0.05 % 1 appl topical BID PRN [COMPRESSION STOCKINGS (medium compression - 20 to 30 mm); Knee high As directed] CPAP (CPAP Machine/Device) As directed diphenhydramine HCl (Benadryl) 25 mg PO TID PRN dulaglutide (Trulicity) 3 mg (0.5 mL) subcut QWEEK epinephrine (EpiPen 2-Dread) 0.3 mg (0.3 mL) IM Q4H PRN ezetimibe (Zetia) 10 mg PO DAILY iamurajstkw-hptntvgxv-hgbxitei 200-62.5-25 mcg (Trelegy Ellipta) 1 inh inhalation DAILY 30 days gabapentin 1 capsule BID and 2 capsules at bedtime orally -(4 capsules a day in total) 28 days glipizide ER 5 mg PO DAILY [HIP BRACE (left hip) As directed] hydralazine 100 mg PO TID 90 days hydrochlorothiazide 25 mg PO DAILY insulin glargine (Lantus Solostar U-100 Insulin) 10 units (0.1 mL) subcut QPM ipratropium-albuterol 0.5 mg-3 mg(2.5 mg base)/3 mL 3 mL inhalation Q6H PRN lancets (FreeStyle Lancets) 28 gauge topical TID lancets (FreeStyle Lancets) As directed 4 X/day latanoprost 0.005% 1 drp ophthalmic (eye) DAILY lorazepam 1 to 2 tablets orally twice a day as needed; PRN; 30 days melatonin 10 mg (2 x 5 mg) PO BEDTIME montelukast 10 mg PO QPM mupirocin 2% 1 appl topical TID PRN 10 days naproxen 500 mg PO BID PRN 10 days nebulizer accessories tubing, mask, nebulizer cup, mouth piece nebulizers As directed olmesartan 40 mg PO DAILY omeprazole 40 mg PO DAILY pen needle, diabetic (BD Ultra-Fine Mini Pen Needle) As directed 1x daily. polyethylene glycol 3350 (Miralax) 238 grams PO ONCE 1 day prednisone PO daily; Take 6 tabs daily x 3 days, then 5 tabs x 3 days, then 4 tabs x 3 days, then 3 tabs x 3 days, then 2 tabs daily x 3 days, then 1 tab x 3 days to complete. 18 days prednisone PO daily; Take 2 by mouth daily x 5 days, then 1 tab daily x 5 days 10 days [PULSE OXIMETER As directed] roflumilast (Daliresp) 250 mcg PO DAILY sildenafil 50 mg PO DAILY PRN tamsulosin 0.4 mg PO DAILY [THERMOMETER As directed] zolpidem 10 mg PO BEDTIME PRN 30 days Tobacco use date assessed: 03/07/23 Dental Screening Dental Screen Date: 03/07/23 Did you have a dental visit in the last 12 months?: No Did you have a dental problem in the last 6 months where you did not have access to dental care?: No Was dental information given to patient?: No HPI 3 month f/u HPI Details Patient comes in today for his follow up visit As before, he has not gotten any of his follow up labs done prior to his appointment today His last fasting lipid profile on record was in February 2022, his last HgbA1c was checked back in August 2022 and his last LFTs and renal function tests were done in April 2022 Patient states that he feels the same as before - still has on and off SOB, presumably due to his asthma He denies any headaches (states that these are better controlled) but still has on and off dizziness Denies any chest pains (+) recurrent nausea and epigastric pain, often postpradially; denies any vomiting Was seeing GI for further work ups of his GI complaints but states that no one has called him back in months regarding his GI work ups and appts No change in bowel habits noted PFSH Medical History Diabetes Hx of fracture of fibula GERD without esophagitis Asthma-COPD overlap syndrome Diastasis recti Laryngospasm JOSÉ (obstructive sleep apnea) Bursitis Low back pain Claustrophobia GERD (gastroesophageal reflux disease) Hemoptysis Anxiety Insomnia Migraine Pure hypercholesterolemia Benign essential hypertension Type 2 diabetes mellitus with hyperglycemia, without long-term current use of insulin Stasis edema of both lower extremities Lumbar degenerative disc disease Obesity (BMI 30-39.9) Chronic rhinitis Hiatal hernia Erectile dysfunction Asthma Surgical History History of endoscopy Hx of colonoscopy Hx of cardiac catheterization History of nasal surgery History of carpal tunnel surgery Family History Father No problems noted. Mother Chronic kidney disease (CKD) Heart attack Other Mental health problem Social History Household Members: Spouse and Children Household Members Other:: , kids Housing: House Alcohol intake: never Patient Tobacco Use Status: Never used Tobacco e-Cigarette/Vaping Use: Never Used Second Hand Smoke Exposure: Yes (employees smoked atwork) service: No Current occupational status: disabled Cognitive needs: No Hearing needs: No Vision needs: No Questionnaire PHQ-9 Over the last 2 weeks, how often have you been bothered by any of the following problems? 1. Little interest or pleasure in doing things: not at all 2. Feeling down, depressed, or hopeless: not at all 3. Trouble falling or staying asleep, or sleeping too much: not at all 4. Feeling tired or having little energy: not at all 5. Poor appetite or overeating: not at all 6. Feeling bad about yourself - or that you are a failure or have let yourself or your family down: not at all 7. Trouble concentrating on things, such as reading the newspaper or watching television: not at all 8. Moving or speaking so slowly that other people could have noticed. Or the opposite - being so fidgety or restless that you have been moving around a lot more than usual: not at all 9. Thoughts that you would be better off or of hurting yourself in some way: not at all Total score: 0 Depression Screening Interpretation: Negative (is on Rx) Depression Screening Done: Yes 77953 - PHQ-9 Billing: Yes Source: Developed by Drs. Oneal Rosenberg, Janelle Blum, Larry Martin and colleagues, with an educational pete from [employer]. Thrive Questionnaire Date Thrive assessed: 03/07/23 I am a: Patient What is your living situation today?: I have a steady place to live Within the past 12 months, did the food you bought not last and you didn't have the money to get more?: Never true Within the past 12 months, did you worry whether your food would run out before you got money to buy more?: Never true Do you have trouble paying for medicines?: No Do you have trouble getting transportation to medical appointments?: No Do you have trouble paying your heating and electricity bill?: No Do you have trouble taking care of your child, family member or friend?: No Do you have trouble with day-to-day activities such as bathing, preparing meals, shopping, managing finances, etc.?: No Are you currently unemployed and looking for a job?: No Are you interested in more education?: No Please select the resources that you would like help with: None Currently or been in a relationship where the following occur: no concerns reported AUDIT C Alcohol Use Questionnaire (AUDIT-C) 1. How often do you have a drink containing alcohol?: Never 3. How often do you have six or more drinks on one occasion?: Never Total Score: 0 Score Reviewed/Action Taken: Yes MALLORIE-7 AMB Questionnaire MALLORIE-7 Date MALLORIE - 7 assessed: 03/07/23 Feeling nervous, anxious, or on edge: 0 = Not at all Not being able to stop or control worryin = Not at all Worrying too much about different things: 0 = Not at all Trouble relaxin = Not at all Being so restless that it is hard to sit still: 0 = Not at all Becoming easily annoyed or irritable: 0 = Not at all Feeling afraid as if something awful might happen: 0 = Not at all Total MALLORIE-7 score (0-4 normal; 5-9 mild; 10-14 moderate; 15-21 severe): 0 Source: Developed by Drs. Oneal Rosenberg, Janelle Blum, Larry Martin and colleagues, with an educational pete from [employer]. Review of Systems Const Denies chills, Reports difficulty sleeping, Reports fatigue, Denies fever(s) and Denies headache(s) ENT Denies dysphagia, Reports dizziness (occasional), Denies otalgia, Denies headache(s), Denies odynophagia and Denies sore throat Card Denies chest pain, Denies palpitations and Reports dyspnea on exertion (mild) Resp Denies chest congestion, Denies cough, Reports dyspnea on exertion (mild) and Denies wheezing GI Reports abdominal pain (over the epigastric area, often triggered by eating), Reports bloating (frequent), Denies constipation, Denies dysphagia, Denies heartburn, Denies diarrhea, Denies nausea, Denies odynophagia and Denies vomiting Reports erectile dysfunction (unable to tolerate Rx), Denies dysuria, Denies nocturia and Denies urinary frequency Musc Reports back pain (chronic - over the lower back), Reports arthralgias (left hip; increased pain and swelling over right wrist lately), Denies joint swelling and Reports tingling (on and off, in both hands and feet) Skin/Breast Denies rash Neuro Reports dizziness (occasional), Denies headache(s) and Reports tingling (on and off, in both hands and feet) Psych Reports anxiety Endo Reports fatigue and Denies palpitations Aller/Immun Denies wheezing Physical exam (Primary Care) Vital Signs: Last Vital Signs Pulse 88 03/07/23 13:14 BP 130/80 03/07/23 13:14 Pulse Ox 96 03/07/23 13:14 Oxygen Delivery Method Room Air 03/07/23 13:14 BMI result Body Mass Index 36.5 Tobacco/Smoking Status: Tobacco use Status Tobacco use date assessed 03/07/23 03/07/23 13:20 Patient Tobacco Use Status Never used Tobacco 03/07/23 13:20 e-Cigarette/Vaping Use Never Used 03/07/23 13:20 PHQ-9: PHQ-9 Score PHQ-9: Total score 0 03/07/23 13:45 Depression Screening Interpretation: Negative (is on Rx) Thrive Assessment: Date of Thrive Assessment Date Thrive assessed 03/07/23 03/07/23 13:20 Currently or been in a relationship where the following occur: no concerns reported Const General: no acute distress and alert HENMT Ears: TM's normal bilaterally and EAC's normal Throat: Yes posterior oropharynx normal and Yes tonsils normal (no TP congestion) Neck Neck: Yes no lymphadenopathy and Yes supple Resp Auscultation: no rales, no wheezes and diminished lung sounds (slightly) bilateral Cardio Rate: regular rate Rhythm: regular rhythm Heart sounds: no murmurs GI Palpation (GI): Soft to palpation, Tenderness to palpation present (GI) (mild) in the epigastrum, no guarding, not rigid and No Rebound tenderness present Auscultation: normal bowel sounds General: Yes no CVA tenderness Back/Spine/Pelvis Back: no CVA tenderness Thoracic/Lumbar Spine: lumbar spinal tenderness Skin Rashes: no rashes Extrem General: Yes no clubbing, cyanosis or edema Results AMB Hemoglobin A1c AMB Hemoglobin A1c 6.9 % Last Edit by Román Priest on 03/07/23 13:49 Assessment and Plan Assessment & Plan (1) Type 2 diabetes mellitus with hyperglycemia, without long-term current use of insulin: Code(s): E11.65 - Type 2 diabetes mellitus with hyperglycemia Plan: In-office HgbA1c done today is at 6.9% (HgbA1c was at 6.7% when last checked in August 2022) - goal is < 7.0% Reinforced diabetic diet Continue Glipizide ER 5 mg QD, Lantus 10 units SQ Q PM and Trulicity 3 mg SQ once a week Follow up with [facility] (Dr. Guerrier) as scheduled (2) Benign essential hypertension: Code(s): I10 - Essential (primary) hypertension Plan: Reinforced low sodium diet - goal is systolic BP of 120 mm or less Continue Olmesartan 40 mg QD, Amlodipine 10 mg QD, HCTZ 25 mg QD and Hydralazine 100 mg TID - this was increased by cardiology a couple of months ago when he was taken off his Metoprolol ER 50 mg BID due to his asthma Patient is again reminded to monitor his blood pressure regularly (3) Pure hypercholesterolemia: Code(s): E78.00 - Pure hypercholesterolemia, unspecified Plan: He is again not able to get his follow up labs done before his visit today, as before and the last time he had his fasting lipids checked was about a year ago in February 2022 Patient also used to take Atorvastatin 80 mg QD and Ezetimibe 10 mg QD but at some point he stopped taking these - he himself is not sure when he stopped taking his meds exactly or why he stopped them Will have him recheck his labs and fasting lipids [facility] for follow-up and advised that we will then determine if he needs to go back on some Rx for his cholesterol at this time Reinforced low cholesterol diet for now (4) Postprandial epigastric pain: Comment: Reviewed medication list, he will follow back with PCP for further evaluation- Code(s): R10.13 - Epigastric pain Plan: Suspect gastritis Continue Omeprazole 40 mg QD Barium swallow done back in December 2021 revealed only (+) GERD; gastric emptying time done a few months ago came back normal States that he was advised by GI earlier this year that he will be scheduled for EGD for further evaluation once he is cleared by anesthesia but nobody called him back or checked back with him again about this since Will refer him BACK again to GI for further evaluation and management - advised that with his recurrent epigastric pain, he should have EGD done for further evaluation (5) GERD without esophagitis: Code(s): K21.9 - Gastro-esophageal reflux disease without esophagitis Plan: Dietary restrictions reinforced Barium swallow done a few months ago revealed findings of GERD; gastric emptying time done more recently came back normal Continue Omeprazole 40 mg QD (6) Asthma-COPD overlap syndrome: Code(s): J44.9 - Chronic obstructive pulmonary disease, unspecified Plan: Continue Trelegy Ellipta 200-62.5-25 mcg 1 inhalation QD, Daliresp 250 mcg 1 tablet QD, Montelukast 10 mg Q PM and Albuterol HFA 2 inhalations every 6 hours as needed He is currently being worked up further to see if he is a candidate for biologic therapy Follow up with pulmonary at [facility] as scheduled (7) Migraine: Code(s): G43.909 - Migraine, unspecified, not intractable, without status migrainosus Qualifiers: Migraine type: unspecified Status migrainosus presence: without status migrainosus Intractability: not intractable Qualified Code(s): G43.909 - Migraine, unspecified, not intractable, without status migrainosus Plan: Stable Continue Topiramate 25 mg Q HS for headache prophylaxis (8) Lumbar degenerative disc disease: Code(s): M51.36 - Other intervertebral disc degeneration, lumbar region Plan: Reinforced activity and weight-lifting restrictions Continue Gabapentin 400 mg 1 capsule in AM, 1 capsule in PM and 2 capsules at bedtime He has been referred to [facility] for further recommendations and management plan for his chronic low back pain (9) Stasis edema of both lower extremities: Code(s): I87.303 - Chronic venous hypertension (idiopathic) without complications of bilateral lower extremity Plan: Reinforced again to elevate his legs as often as he can and to also wear his compression stockings regularly to help minimize his leg swelling - Compression stockings Rx done Follow up with vascular surgery as scheduled (10) Erectile dysfunction: Code(s): N52.9 - Male erectile dysfunction, unspecified Qualifiers: Erectile dysfunction type: unspecified Qualified Code(s): N52.9 - Male erectile dysfunction, unspecified Plan: Continue Sildenafil 50 mg PRN Follow up with urology as scheduled (11) Insomnia: Code(s): G47.00 - Insomnia, unspecified Qualifiers: Insomnia type: unspecified Qualified Code(s): G47.00 - Insomnia, unspecified Plan: Sleep hygiene reinforced Continue Zolpidem 10 mg Q HS PRN Was tried previously on Lunesta but states that he cannot stand its aftertaste (12) Anxiety: Code(s): F41.9 - Anxiety disorder, unspecified Plan: Continue Lorazepam 0.5 mg 1 to 2 tablets BID PRN (13) Major depressive disorder, recurrent: Code(s): F33.9 - Major depressive disorder, recurrent, unspecified Qualifiers: Active/Remission status: currently active Major depression episode severity: unspecified Qualified Code(s): F33.9 - Major depressive disorder, recurrent, unspecified Plan: Was on Sertraline 50 mg QD in the past but stopped taking it at some point - is not sure when or why but states that he feels okay without the Rx for now Follow up with psychiatry as scheduled (14) Obesity (BMI 30-39.9): Code(s): E66.9 - Obesity, unspecified Plan: Reinforced diet/exercise as tolerated/lose weight Plan Follow up in 4 months Orders: Orders AMB Hemoglobin A1c Today Z13.9 - Encounter for screening, unspecified Complete Blood Count Auto Diff 4 Months I10 - Essential (primary) hypertension Lipid Panel 4 Months E78.00 - Pure hypercholesterolemia, unspecified Hemoglobin A1c 4 Months E11.9 - Type 2 diabetes mellitus without complications UA CC w/rflx Micro + Cult 4 Months R30.0 - Dysuria Vitamin D 25-OH Total 4 Months E55.9 - Vitamin D deficiency, unspecified Complete Blood Count Auto Diff Today I10 - Essential (primary) hypertension Comprehensive Bishop. Panel Fast Today E78.00 - Pure hypercholesterolemia, unspecified Testosterone, Free/Total Today R79.89 - Other specified abnormal findings of blood chemistry Comprehensive Bishop. Panel Fast 4 Months E78.00 - Pure hypercholesterolemia, unspecified Microalbumin, Random (w Creat) 4 Months E11.9 - Type 2 diabetes mellitus without complications TSH reflex Free T4 4 Months E78.00 - Pure hypercholesterolemia, unspecified Vitamin B12 and Folate 4 Months E53.8 - Deficiency of other specified B group vitamins Lipid Panel Today E78.00 - Pure hypercholesterolemia, unspecified TSH reflex Free T4 Today E78.00 - Pure hypercholesterolemia, unspecified Referrals Gastroenterology Referral R10.13 - Epigastric pain Coding Level of Care Code Est Pt Level 4 (07788) Diagnoses Type 2 diabetes mellitus with hyperglycemia, without long-term current use of insulin E11.65 Benign essential hypertension I10 Pure hypercholesterolemia E78.00 Postprandial epigastric pain R10.13 GERD without esophagitis K21.9 Asthma-COPD overlap syndrome J44.9 Migraine without status migrainosus, not intractable, unspecified migraine type G43.909 Migraine type: unspecified Status migrainosus presence: without status migrainosus Intractability: not intractable Lumbar degenerative disc disease M51.36 Stasis edema of both lower extremities I87.303 Erectile dysfunction, unspecified erectile dysfunction type N52.9 Erectile dysfunction type: unspecified Insomnia, unspecified type G47.00 Insomnia type: unspecified Anxiety F41.9 Episode of recurrent major depressive disorder, unspecified depression episode severity F33.9 Active/Remission status: currently active Major depression episode severity: unspecified Obesity (BMI 30-39.9) E66.9
== END 2023-03-07 14:05 | disposition home or self-care (01) ==
PROVIDERS: PCP Internal Medicine; Visit Provider Internal Medicine
DX: E11.65 Type 2 diabetes mellitus with hyperglycemia (principal)
CPT/HCPCS: 83036; 99214

== ENCOUNTER 2023-03-10 10:10 | Outpatient (REF) | payer OTHER, SELFPAY ==
[2023-03-10 10:33] LABS: MANUAL DIFF FLAG NO
[2023-03-10 10:37] LABS: Basophils Absolute Auto 0.1 X10*3/uL (0.0-0.2); Basophils Percent Auto 0.8 % (0-2); Eosinophils Absolute Auto 0.1 X10*3/uL (0.0-0.4); Eosinophils Percent Auto 1.7 % (0-4); Hematocrit 46.2 % (42.0-52.0); Hemoglobin 15.3 g/dl (14.0-18.0); Imm Gran Abs Auto 0.04 X10*3/uL (0.00-0.03); Imm Gran Pct Auto 0.5 % (0.0-0.4); Lymphocytes Percent Auto 23.3 % (20-40); Mean Corpuscular HGB Conc 33.1 g/dl (31.0-36.0); Mean Corpuscular Hemoglobin 28.9 pg (27.0-33.0); Mean Corpuscular Volume 87.2 fL (80.0-98.0); Mean Platelet Volume 10.1 fL (9.4-12.4); Monocytes Absolute Auto 0.6 X10*3/uL (0.1-1.2); Monocytes Percent Auto 6.8 % (2-11); Neutrophils Absolute Auto 5.7 x10*3/uL (2.0-8.3); Neutrophils Percent Auto 66.9 % (45-73); Platelet Count 325 X10*3/uL (160-400); Red Cell Distribution Width 12.2 % (11.0-16.0); White Blood Count 8.5 X10*3/uL (4.8-10.8)
[2023-03-10 11:31] LABS: Alanine Aminotransferase 20 U/L (0-40); Albumin Level 4.1 g/dL (3.5-5.0); Alkaline Phosphatase 69 U/L (39-117); Anion Gap 11 (12-20); Aspartate Amino Transferase 15 U/L (5-37); Bilirubin Total 0.6 mg/dL (0.0-1.0); Blood Urea Nitrogen 13 mg/dL (9-16); Calcium 9.1 mg/dL (8.4-10.2); Carbon Dioxide 27 mmol/L (22-29); Chloride 104 mmol/L (96-108); Cholesterol 164 mg/dL (<200); Estimated Glomerular Filt Rate > 60; Glucose Fasting 124 mg/dL (60-99); HDL Cholesterol 34 mg/dL (>40); LDL Cholesterol Calculated 113 mg/dL (<100); Potassium 3.9 mmol/L (3.3-5.1); Sodium 138 mmol/L (135-145); Total Protein 6.9 g/dL (6.5-8.0); Triglycerides 86 mg/dL (<150)
[2023-03-10 11:46] LABS: TSH reflex Free T4 1.68 uIU/mL (0.32-4.0)
[2023-03-17 14:19] LABS: Testosterone, Total 339 ng/dL (250-1100)
== END 2023-03-10 10:11 | disposition home or self-care (01) ==
LOC: HO.10HDL 10:10
PROVIDERS: Visit Provider Internal Medicine
DX: E78.00 Pure hypercholesterolemia, unspecified (principal); R79.89 Other specified abnormal findings of blood chemistry; I10 Essential (primary) hypertension
CPT/HCPCS: 36415; 80053; 80061; 84402; 84403; 84443; 85025

== ENCOUNTER 2023-04-17 08:29 | Outpatient (AMB) | payer OTHER, SELFPAY ==
--- NOTE | 2023-04-17 08:35 | A.OFFVIS_ITS ---
Intake Vital Signs 04/17/23 08:38 Height 5 ft 7 in Weight 230 lb BMI 36.0 BP 118/82 Blood Pressure Location Lt brachial Position Sitting Pulse 100 Pulse Source Pulse Oximeter Intake Visit Reasons: DM-confirmed Intake Note: Patient presents today to follow up on D2MT. 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 Accompanied by: Self / Same As Patient Allergies iodine [Iodine] Allergy (Severe, Verified 04/17/23 08:40) THROAT SWELLING lisinopril Allergy (Severe, Verified 04/17/23 08:40) Rash metformin Allergy (Severe, Verified 04/17/23 08:40) diarrhea meperidine [From Demerol] Allergy (Mild, Verified 04/17/23 08:40) RASH oxycodone [From Percocet] Adverse Reaction (Mild, Verified 04/17/23 08:40) MOUTH DRYNESS,RASH Mercury Detox Allergy (Severe, Uncoded 03/07/23 13:39) Close Throat Shellfish Allergy (Severe, Uncoded 03/07/23 13:39) THROAT SWELLING Medication List - Last Reconciled 04/17/23 by Oneal Guerrier MD albuterol sulfate 2.5 mg (3 mL) continuous nebulization QID PRN 30 days albuterol sulfate 90 mcg/actuation (Ventolin HFA) 2 puffs PO QID PRN 90 days alcohol swabs (BD Alcohol Swabs) 1 pad topical TID amlodipine 10 mg PO DAILY aspirin 81 mg PO DAILY azelastine 2 sprays intranasal BID 30 days azithromycin 250 mg PO 3XW bisacodyl (Dulcolax (bisacodyl)) 10 mg (2 x 5 mg) PO ONCE 1 day blood pressure monitor (Blood Pressure Kit) Take BP up to once daily and keep a log blood sugar diagnostic (FreeStyle Lite Strips) As directed tests 5 X/day blood-glucose meter (FreeStyle Lite Meter kit) As directed- To test blood sugar three times a day budesonide 0.5 mg (2 mL) inhalation BID 30 days cholecalciferol (vitamin D3) 75 mcg PO .Q2days clotrimazole-betamethasone 1-0.05 % 1 appl topical BID PRN [COMPRESSION STOCKINGS (medium compression - 20 to 30 mm); Knee high As directed ] CPAP (CPAP Machine/Device) As directed diphenhydramine HCl (Benadryl) 25 mg PO TID PRN dulaglutide (Trulicity) 3 mg (0.5 mL) subcut QWEEK epinephrine (EpiPen 2-Dread) 0.3 mg (0.3 mL) IM Q4H PRN ezetimibe (Zetia) 10 mg PO DAILY lnsbdytyode-caorhijgk-tjqpszum 200-62.5-25 mcg (Trelegy Ellipta) 1 inh inhalation DAILY 30 days gabapentin 1 capsule BID and 2 capsules at bedtime orally -(4 capsules a day in total) 28 days glipizide ER 5 mg PO DAILY [HIP BRACE (left hip) As directed] hydralazine 100 mg PO TID 90 days hydrochlorothiazide 25 mg PO DAILY insulin glargine (Lantus Solostar U-100 Insulin) 10 units (0.1 mL) subcut QPM ipratropium-albuterol 0.5 mg-3 mg(2.5 mg base)/3 mL 3 mL inhalation Q6H PRN lancets (FreeStyle Lancets) 28 gauge topical TID lancets (FreeStyle Lancets) As directed 4 X/day latanoprost 0.005% 1 drp ophthalmic (eye) DAILY lorazepam 1 to 2 tablets orally twice a day as needed; PRN; 30 days melatonin 10 mg (2 x 5 mg) PO BEDTIME montelukast 10 mg PO QPM mupirocin 2% 1 appl topical TID PRN 10 days naproxen 500 mg PO BID PRN 10 days nebulizer accessories tubing, mask, nebulizer cup, mouth piece nebulizers As directed olmesartan 40 mg PO DAILY omeprazole 40 mg PO DAILY pen needle, diabetic (BD Ultra-Fine Mini Pen Needle) As directed 1x daily. polyethylene glycol 3350 (Miralax) 238 grams PO ONCE 1 day prednisone PO daily; Take 6 tabs daily x 3 days, then 5 tabs x 3 days, then 4 tabs x 3 days, then 3 tabs x 3 days, then 2 tabs daily x 3 days, then 1 tab x 3 days to complete. 18 days prednisone PO daily; Take 2 by mouth daily x 5 days, then 1 tab daily x 5 days 10 days [PULSE OXIMETER As directed] sildenafil 50 mg PO DAILY PRN tamsulosin 0.4 mg PO DAILY [THERMOMETER As directed] zolpidem 10 mg PO BEDTIME PRN 30 days HPI HPI Comments History of Present Illness Details 57 YO M who is seen in consultation for T2DM at the request of PCP. Initially diagnosed with T2DM in last yr . Was initially started on treatment with metformin.Could not tolerate b/c of diaarhea Current regimen Glipizide 5 mg Trulicity 3 mg Qwkly Lantus 10 units . Glucometer download shows she is checking his point cares 1 times a day. Average glucose is 132 with range of 95-152. 100% range with 20% hyperglycemia and no hypoglycemia Reports low sugars never . Family history of T2DM in mother, brother, sister . Has eyes checked yearly, last eye examNov 2022 , denies retinopathy. Has neuropathy, , sees podiatry last saw 2 yrs ago . Denies nephropathy, on LUIGI/ARB. Has HLD, on statin. Denies CAD. Not Had diabetes education. [facility] Medical History Diabetes Hx of fracture of fibula GERD without esophagitis Asthma-COPD overlap syndrome Diastasis recti Laryngospasm JOSÉ (obstructive sleep apnea) Bursitis Low back pain Claustrophobia GERD (gastroesophageal reflux disease) Hemoptysis Anxiety Insomnia Migraine Pure hypercholesterolemia Benign essential hypertension Type 2 diabetes mellitus with hyperglycemia, without long-term current use of insulin Stasis edema of both lower extremities Lumbar degenerative disc disease Obesity (BMI 30-39.9) Chronic rhinitis Hiatal hernia Erectile dysfunction Asthma Surgical History History of endoscopy Hx of colonoscopy Hx of cardiac catheterization History of nasal surgery History of carpal tunnel surgery Family History Father No problems noted. Mother Chronic kidney disease (CKD) Heart attack Other Mental health problem Social History Household Members: Spouse and Children Household Members Other:: , kids Housing: House Alcohol intake: never Patient Tobacco Use Status: Never used Tobacco e-Cigarette/Vaping Use: Never Used Second Hand Smoke Exposure: Yes (employees smoked atwork) service: No Current occupational status: disabled Cognitive needs: No Hearing needs: No Vision needs: No Physical Exam Vital Signs: Last Vital Signs Pulse 100 04/17/23 08:38 BP 118/82 04/17/23 08:38 BMI result Body Mass Index 36.0 Absence of Cushingoid features. Absence of acromegalic features. Neck exam reveals nl size thyroid about 15 gms. No thyroid nodules palpable. No carotid bruits present. Lungs CTA. Heart S1 S2, Reg R/R. No M/R/ G. Skin exam reveals absence of vitiligo or acanthosis nigricans. Abdominal exam reveals Soft NT/ND with NA BS. No organomegaly present. Neck Other: . Extrem Other: Visual exam of foot performed. No ulcerations or open lesions. No onchomycosis, no callouses.Pulses 2 + distally Sensation intact to monofilament exam. Vibratory sensation sensed is intact with 128 Hz tuning fork Results Reviewed Results Reviewed: Laboratory Last Values Glucose (Clinic) 123 mg/dL (60-115) H 04/17/23 08:45 Assessment & Plan Assessment & Plan (1) Type 2 diabetes mellitus with hyperglycemia, without long-term current use of insulin: Code(s): E11.65 - Type 2 diabetes mellitus with hyperglycemia Plan: This is a 57-year-old male with a history of type 2 diabetes being treated with glipizide, Trulicity and basal insulin with excellent improved glycemic control and no known microvascular or macrovascular complications. The plan is to continue the current treatment. At this point, patient returned to the care of his primary care provider and back to endocrinology was HbA1c deteriorates. His primary care provider might want to prescribe a Lola 2 which might be covered now by his insurance because he is taking 1 shot of insulin per day. Coding Level of Care Code Est Pt Level 4 (26573) Diagnoses Type 2 diabetes mellitus with hyperglycemia, without long-term current use of insulin E11.65
[2023-04-17 08:38] VITALS: BP 118/82; PULSE 100; BMI 36.0
[2023-04-17 08:50] LABS: Glucose, Whole Blood 123 mg/dL (60-115)
== END 2023-04-17 08:54 | disposition home or self-care (01) ==
PROVIDERS: PCP Internal Medicine; Visit Provider Internal Medicine Endocrinology, Diabetes & Metabolism
DX: E11.65 Type 2 diabetes mellitus with hyperglycemia (principal)
CPT/HCPCS: 99214

== ENCOUNTER → 2023-04-17 08:29 | Outpatient (BNVA) | payer OTHER, SELFPAY | PROVIDERS: PCP Internal Medicine; Visit Provider Internal Medicine Endocrinology, Diabetes & Metabolism | DX: E11.65 Type 2 diabetes mellitus with hyperglycemia (principal); Z79.84 Long term (current) use of oral hypoglycemic drugs; Z79.85 Long-term (current) use of injectable non-insulin antidiabetic drugs | CPT/HCPCS: 82947; 99212 ==

== ENCOUNTER 2023-05-09 11:15 | Outpatient (REF) | payer OTHER, SELFPAY ==
[2023-05-09 13:26] LABS: MANUAL DIFF FLAG NO
[2023-05-09 13:31] LABS: Appearance Urine Clear; Color Urine Dark Yellow; Glucose Urine UA Negative (Negative); Leukocyte Esterase Urine Negative (Negative); Nitrite Urine Negative (Negative); Specific Gravity - Urine >= 1.030 (1.005-1.025); Urine Blood Negative (Negative); Urine Ketones Trace mg/dL (Negative); Urine Protein Negative (Neg-Trace)
[2023-05-09 13:38] LABS: Basophils Percent Auto 0.6 % (0-2); Eosinophils Absolute Auto 0.1 X10*3/uL (0.0-0.4); Eosinophils Percent Auto 1.5 % (0-4); Hematocrit 46.1 % (42.0-52.0); Hemoglobin 15.3 g/dl (14.0-18.0); Imm Gran Abs Auto 0.02 X10*3/uL (0.00-0.03); Imm Gran Pct Auto 0.3 % (0.0-0.4); Lymphocytes Absolute Auto 1.3 X10*3/uL (1.2-4.9); Lymphocytes Percent Auto 19.3 % (20-40); Mean Corpuscular HGB Conc 33.2 g/dl (31.0-36.0); Mean Corpuscular Hemoglobin 29.8 pg (27.0-33.0); Mean Corpuscular Volume 89.7 fL (80.0-98.0); Mean Platelet Volume 10.9 fL (9.4-12.4); Monocytes Absolute Auto 0.5 X10*3/uL (0.1-1.2); Monocytes Percent Auto 6.9 % (2-11); Neutrophils Absolute Auto 4.9 x10*3/uL (2.0-8.3); Neutrophils Percent Auto 71.4 % (45-73); Platelet Count 274 X10*3/uL (160-400); Red Blood Count 5.14 X10*6/uL (4.60-5.80); Red Cell Distribution Width 12.9 % (11.0-16.0); White Blood Count 6.9 X10*3/uL (4.8-10.8)
[2023-05-09 13:39] LABS: Estimated Average Glucose 128 mg/dL; Hemoglobin A1c % 6.1 % (<6.0)
[2023-05-09 13:54] LABS: Alanine Aminotransferase 20 U/L (0-40); Albumin Level 4.3 g/dL (3.5-5.0); Alkaline Phosphatase 64 U/L (39-117); Anion Gap 12 (12-20); Aspartate Amino Transferase 16 U/L (5-37); Bilirubin Total 0.7 mg/dL (0.0-1.0); Blood Urea Nitrogen 13 mg/dL (9-16); Calcium 9.4 mg/dL (8.4-10.2); Carbon Dioxide 28 mmol/L (22-29); Chloride 105 mmol/L (96-108); Cholesterol 157 mg/dL (<200); Estimated Glomerular Filt Rate > 60; Glucose Fasting 173 mg/dL (60-99); HDL Cholesterol 32 mg/dL (>40); LDL Cholesterol Calculated 112 mg/dL (<100); Potassium 4.1 mmol/L (3.3-5.1); Sodium 141 mmol/L (135-145); Triglycerides 65 mg/dL (<150)
[2023-05-09 14:04] LABS: Creatinine Urine 315.24 mg/dL; Microalbum/Creatinine Ratio Ur 4.1 ug/mg cr (<30)
[2023-05-09 14:12] LABS: TSH reflex Free T4 1.09 uIU/mL (0.32-4.0); Vitamin D 25-OH Total 23.9 ng/mL (>30)
[2023-05-09 14:17] LABS: Folate 13.5 ng/mL (> or = 4.0); Vitamin B12 334 pg/mL (200-900)
[2023-05-10 02:16] LABS: Syphilis Screen Nonreactive (Nonreactive)
[2023-05-10 02:40] LABS: HBS Num1 1.08 mIU/mL (0-7.99); HBc Num1 0.11 S/CO (0.00-0.79); HBsAGNum1 0.46 S/CO (0.00-0.99); HIV AB/AG Nonreactive (Nonreactive); HIV Num 1 0.08 S/CO (0.00-0.99); Hepatitis B Core Antibody Nonreactive (Nonreactive); Hepatitis B Surface Antigen Negative (Negative); ~HepC Num1 0.17 S/CO (0.00-0.79); ~Hepatitis B Surface Antibody NONREACTIVE (Nonreactive); ~Hepatitis C Antibody Nonreactive (Nonreactive)
== END 2023-05-09 11:16 | disposition home or self-care (01) ==
LOC: HO.10HDL 11:15
PROVIDERS: Visit Provider Internal Medicine
DX: I10 Essential (primary) hypertension (principal); E11.9 Type 2 diabetes mellitus without complications; R30.0 Dysuria; E78.00 Pure hypercholesterolemia, unspecified; E55.9 Vitamin D deficiency, unspecified; E53.8 Deficiency of other specified B group vitamins; Z20.2 Contact with and (suspected) exposure to infections with a predominantly sexual mode of transmission
CPT/HCPCS: 36415; 80053; 80061; 81003; 82043; 82306; 82570; 82607; 82746; 83036; 84443; 85025; 86704; 86706; 86780; 86803; 87340; 87389

== ENCOUNTER 2023-05-23 12:47 | Outpatient (AMB) | payer OTHER, SELFPAY ==
[2023-05-23 12:49] VITALS: BP 142/100; PULSE 84; O2SAT 98; BMI 34.5
--- NOTE | 2023-05-23 12:49 | A.OFFPC_ITS ---
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 Accompanied by: Self / Same As Patient Allergies iodine [Iodine] Allergy (Severe, Verified 06/10/23 22:37) THROAT SWELLING lisinopril Allergy (Severe, Verified 06/10/23 22:37) Rash metformin Allergy (Severe, Verified 06/10/23 22:37) diarrhea meperidine [From Demerol] Allergy (Mild, Verified 06/10/23 22:37) RASH oxycodone [From Percocet] Adverse Reaction (Mild, Verified 06/10/23 22:37) MOUTH DRYNESS,RASH Mercury Detox Allergy (Severe, Uncoded 06/10/23 22:37) Close Throat Shellfish Allergy (Severe, Uncoded 06/10/23 22:37) THROAT SWELLING Medication List - Last Reconciled 06/10/23 by Oliverio Emerson MD albuterol sulfate 2.5 mg (3 mL) continuous nebulization QID PRN 30 days albuterol sulfate 90 mcg/actuation (Ventolin HFA) 2 puffs PO QID PRN 90 days alcohol swabs (BD Alcohol Swabs) 1 pad topical TID amlodipine 10 mg PO DAILY aspirin 81 mg PO DAILY azelastine 2 sprays intranasal BID 30 days azithromycin 250 mg PO 3XW bisacodyl (Dulcolax (bisacodyl)) 10 mg (2 x 5 mg) PO ONCE 1 day blood pressure monitor (Blood Pressure Kit) Take BP up to once daily and keep a log blood sugar diagnostic (FreeStyle Lite Strips) As directed tests 5 X/day blood-glucose meter (FreeStyle Lite Meter kit) As directed- To test blood sugar three times a day budesonide 0.5 mg (2 mL) inhalation BID 30 days cephalexin 500 mg PO Q6H 7 days cholecalciferol (vitamin D3) 75 mcg PO .Q2days clotrimazole-betamethasone 1-0.05 % 1 appl topical BID PRN [COMPRESSION STOCKINGS (medium compression - 20 to 30 mm); Knee high As directed ] CPAP (CPAP Machine/Device) As directed [DIABETIC SHOES with INSERTS As directed] diphenhydramine HCl (Benadryl) 25 mg PO TID PRN dulaglutide (Trulicity) 3 mg (0.5 mL) subcut QWEEK epinephrine (EpiPen 2-Dread) 0.3 mg (0.3 mL) IM Q4H PRN ezetimibe (Zetia) 10 mg PO DAILY [id number]-zultmorx 200-62.5-25 mcg (Trelegy Ellipta) 1 inh inhalation DAILY 30 days gabapentin 1 capsule BID and 2 capsules at bedtime orally -(4 capsules a day in total) 28 days glipizide ER 5 mg PO DAILY [HIP BRACE (left hip) As directed] hydralazine 100 mg PO TID 90 days hydrochlorothiazide 25 mg PO DAILY insulin glargine (Lantus Solostar U-100 Insulin) 10 units (0.1 mL) subcut QPM ipratropium-albuterol 0.5 mg-3 mg(2.5 mg base)/3 mL 3 mL inhalation Q6H PRN lancets (FreeStyle Lancets) 28 gauge topical TID lancets (FreeStyle Lancets) As directed 4 X/day latanoprost 0.005% 1 drp ophthalmic (eye) DAILY lorazepam 1 to 2 tablets orally twice a day as needed; PRN; 30 days melatonin 10 mg (2 x 5 mg) PO BEDTIME montelukast 10 mg PO QPM mupirocin 2% 1 appl topical TID PRN 10 days naproxen 500 mg PO BID PRN 10 days nebulizer accessories tubing, mask, nebulizer cup, mouth piece nebulizers As directed olmesartan 40 mg PO DAILY omeprazole 40 mg PO DAILY pen needle, diabetic (BD Ultra-Fine Mini Pen Needle) As directed 1x daily. polyethylene glycol 3350 (Miralax) 238 grams PO ONCE 1 day prednisone PO daily; Take 6 tabs daily x 3 days, then 5 tabs x 3 days, then 4 tabs x 3 days, then 3 tabs x 3 days, then 2 tabs daily x 3 days, then 1 tab x 3 days to complete. 18 days prednisone PO daily; Take 2 by mouth daily x 5 days, then 1 tab daily x 5 days 10 days [PULSE OXIMETER As directed] sildenafil 50 mg PO DAILY PRN tamsulosin 0.4 mg PO DAILY [THERMOMETER As directed] zolpidem 10 mg PO BEDTIME PRN 30 days Tobacco use date assessed: 05/23/23 Dental Screening Dental Screen Date: 05/23/23 Did you have a dental visit in the last 12 months?: No Did you have a dental problem in the last 6 months where you did not have access to dental care?: No Was dental information given to patient?: No HPI PE HPI Details Patient comes in today for his annual physical examination States that he has been experiencing increased cough and congestion again for the past few days Relates (+) mild sore throat but denies any fever Denies any headaches or dizziness Denies any chest pains, no increased SOB but reports (+) on and off coughing - coughs up minimal thick whitish phlegm at times and states that his cough seems to get worse at night No nausea/vomiting, no abdominal pain No change in bowel habits noted Denies any acute urinary symptoms Would like to get Rx for diabetic shoes Also needs his Lorazepam Rx refilled Had his follow up labs done a couple of weeks ago - to discuss his results He last had his colonoscopy done in 2014 and was supposed to get a repeat colonoscopy done in 5 years (2019) but has not yet been able to get it repeated [facility] Medical History Diabetes Hx of fracture of fibula GERD without esophagitis Asthma-COPD overlap syndrome Diastasis recti Laryngospasm JOSÉ (obstructive sleep apnea) Bursitis Low back pain Claustrophobia GERD (gastroesophageal reflux disease) Hemoptysis Anxiety Insomnia Migraine Pure hypercholesterolemia Benign essential hypertension Type 2 diabetes mellitus with hyperglycemia, without long-term current use of insulin Stasis edema of both lower extremities Lumbar degenerative disc disease Obesity (BMI 30-39.9) Chronic rhinitis Hiatal hernia Erectile dysfunction Asthma Surgical History History of endoscopy Hx of colonoscopy Hx of cardiac catheterization History of nasal surgery History of carpal tunnel surgery Family History Father No problems noted. Mother Chronic kidney disease (CKD) Heart attack Other Mental health problem Social History Household Members: Spouse and Children Household Members Other:: , kids Housing: House Alcohol intake: never Patient Tobacco Use Status: Never used Tobacco e-Cigarette/Vaping Use: Never Used Second Hand Smoke Exposure: Yes (employees smoked atwork) service: No Current occupational status: disabled Cognitive needs: No Hearing needs: No Vision needs: No Questionnaire PHQ-9 Over the last 2 weeks, how often have you been bothered by any of the following problems? 1. Little interest or pleasure in doing things: not at all 2. Feeling down, depressed, or hopeless: not at all 3. Trouble falling or staying asleep, or sleeping too much: not at all 4. Feeling tired or having little energy: not at all 5. Poor appetite or overeating: not at all 6. Feeling bad about yourself - or that you are a failure or have let yourself or your family down: not at all 7. Trouble concentrating on things, such as reading the newspaper or watching television: not at all 8. Moving or speaking so slowly that other people could have noticed. Or the opposite - being so fidgety or restless that you have been moving around a lot more than usual: not at all 9. Thoughts that you would be better off or of hurting yourself in some way: not at all Total score: 0 Depression Screening Interpretation: Negative (is on Rx) Depression Screening Done: Yes 51279 - PHQ-9 Billing: Yes Source: Developed by Drs. Oneal Rosenberg, Janelle Blum, Larry Martin and colleagues, with an educational pete from [employer]. Thrive Questionnaire Date Thrive assessed: 05/23/23 I am a: Patient What is your living situation today?: I have a steady place to live Within the past 12 months, did the food you bought not last and you didn't have the money to get more?: Never true Within the past 12 months, did you worry whether your food would run out before you got money to buy more?: Never true Do you have trouble paying for medicines?: No Do you have trouble getting transportation to medical appointments?: No Do you have trouble paying your heating and electricity bill?: No Do you have trouble taking care of your child, family member or friend?: No Do you have trouble with day-to-day activities such as bathing, preparing meals, shopping, managing finances, etc.?: No Are you currently unemployed and looking for a job?: No Are you interested in more education?: No Please select the resources that you would like help with: None Currently or been in a relationship where the following occur: no concerns reported THRIVE Score: 0 AUDIT C Alcohol Use Questionnaire (AUDIT-C) 1. How often do you have a drink containing alcohol?: Never 3. How often do you have six or more drinks on one occasion?: Never Total Score: 0 Score Reviewed/Action Taken: Yes MALLORIE-7 AMB Questionnaire MALLORIE-7 Date MALLORIE - 7 assessed: 05/23/23 Feeling nervous, anxious, or on edge: 0 = Not at all Not being able to stop or control worryin = Not at all Worrying too much about different things: 0 = Not at all Trouble relaxin = Not at all Being so restless that it is hard to sit still: 0 = Not at all Becoming easily annoyed or irritable: 0 = Not at all Feeling afraid as if something awful might happen: 0 = Not at all Total MALLORIE-7 score (0-4 normal; 5-9 mild; 10-14 moderate; 15-21 severe): 0 Source: Developed by Drs. Oneal Rosenberg, Janelle Blum, Larry Martin and colleagues, with an educational pete from [employer]. Review of Systems Const Denies chills, Denies fatigue, Denies fever(s), Denies headache(s), Denies malaise and Denies weakness Eyes Denies blurry vision, Denies change in vision, Denies irritation and Denies itchy eyes ENT Denies dysphagia, Denies dizziness, Denies otalgia, Denies headache(s), Reports nasal congestion, Denies neck pain, Denies odynophagia, Denies sinus pain and Reports sore throat (mild) Card Denies chest pain, Denies rapid heart rate, Denies irregular heart rhythm, Denies palpitations and Denies dyspnea Resp Reports chest congestion (mild), Reports cough (recurrent, worse at night; coughs up thick whitish phlegm at times), Denies dyspnea and Denies wheezing GI Denies abdominal pain, Denies constipation, Denies dysphagia, Denies heartburn, Denies diarrhea, Denies nausea, Denies odynophagia and Denies vomiting Denies hematuria, Denies difficulty urinating, Denies dysuria, Denies urinary frequency and Denies urinary urgency Musc Reports back pain (chronic - over the lower back), Reports arthralgias (left hip; increased pain and swelling over right wrist lately), Denies joint swelling, Denies neck pain and Reports tingling (on and off, in both hands and feet) Skin/Breast Denies change in pigmentation, Denies lesions, Denies rash and Denies unusual bruising Neuro Denies dizziness, Denies headache(s), Reports tingling (on and off, in both hands and feet) and Denies weakness Psych Reports anxiety Endo Denies fatigue and Denies palpitations Aller/Immun Denies itchy eyes and Denies wheezing Physical exam (Primary Care) Vital Signs: Last Vital Signs Pulse 84 05/23/23 12:49 BP 142/100 H 05/23/23 12:49 Pulse Ox 98 05/23/23 12:49 Oxygen Delivery Method Room Air 05/23/23 12:49 BMI result Body Mass Index 34.5 Tobacco/Smoking Status: Tobacco use Status Tobacco use date assessed 05/23/23 05/23/23 12:51 Patient Tobacco Use Status Never used Tobacco 05/23/23 12:51 e-Cigarette/Vaping Use Never Used 05/23/23 12:51 PHQ-9: PHQ-9 Score PHQ-9: Total score 0 06/11/23 03:56 Depression Screening Interpretation: Negative (is on Rx) Thrive Assessment: Date of Thrive Assessment Date Thrive assessed 05/23/23 05/23/23 12:51 Currently or been in a relationship where the following occur: no concerns reported Const General: no acute distress, alert and awake Orientation/consciousness: patient oriented x3 HENMT Head: Yes normocephalic and Yes atraumatic Ears: external ears normal, TM's normal bilaterally and EAC's normal Face and sinus: Yes normal facial exam and Yes sinuses nontender Teeth and gingiva: dentition normal Throat: Yes tonsils normal (no TP congestion) and Yes posterior oropharynx abnormal (increased erythema of the posterior pharynx) Eyes Eyelids: Yes eyelids normal Conjunctivae: conjunctivae normal Pupils: Equal, round and reactive pupils present EOM: EOMs intact bilaterally Neck Neck: Yes no lymphadenopathy and Yes supple Thyroid: Thyroid normal Resp Auscultation: clear to auscultation bilaterally, no rales and no wheezes Cardio Rate: regular rate Rhythm: regular rhythm Heart sounds: no murmurs GI Palpation (GI): Soft to palpation, nontender and No hepatosplenomegaly present Auscultation: normal bowel sounds General: Yes no CVA tenderness Back/Spine/Pelvis Back: no CVA tenderness Thoracic/Lumbar Spine: lumbar spinal tenderness Skin Lesions: no lesions Rashes: no rashes Neuro General: patient oriented x3, moves all extremities, no focal motor deficits and CN's II-XI intact bilaterally Cranial nerves: Yes Equal, round and reactive pupils present Cognition (Neuro): normal cognition Gait exam (Neuro): Normal gait present Extrem General: Yes no clubbing, cyanosis or edema Results Reviewed Results Reviewed: Laboratory Tests 01/27/21 05/09/23 00:45 11:25 WBC 7.8 6.9 Hgb 14.1 15.3 Hct 41.9 L 46.1 Plt Count 246 274 Sodium 137 141 Potassium 4.4 4.1 Creatinine 1.36 1.16 Estimated GFR 54 > 60 Random Glucose 322 H Fasting Glucose 173 H Hemoglobin A1c % 6.1 H Calcium 9.4 9.4 AST 16 ALT 20 Triglycerides 65 Cholesterol 157 LDL Cholesterol, Calc 112 H HDL Cholesterol 32 L Vitamin B12 334 25-OH Vitamin D Total 23.9 L TSH 1.09 Ur Specific [place] >= 1.030 H Urine Protein Negative Urine Glucose (UA) Negative Urine Blood Negative Urine Nitrite Negative Ur Leukocyte Esterase Negative Microalb/Creat Ratio 4.1 Assessment and Plan Assessment & Plan (1) Annual physical exam: Code(s): Z00.00 - Encounter for general adult medical examination without abnormal findings Plan: Results of his labs done a couple of weeks ago reviewed and discussed with patient He is overdue for his repeat colonoscopy (due in 2019) and will go ahead and refer him again to GI for consideration for repeat colonoscopy (2) Upper respiratory tract infection: Code(s): J06.9 - Acute upper respiratory infection, unspecified Qualifiers: URI type: unspecified URI Qualified Code(s): J06.9 - Acute upper respiratory infection, unspecified Plan: Will start him on empiric Tx with Cephalexin 500 mg Q 6 hours x 7 days (3) Type 2 diabetes mellitus with hyperglycemia, without long-term current use of insulin: Code(s): E11.65 - Type 2 diabetes mellitus with hyperglycemia Plan: HgbA1c was at 6.1% on his labs done a couple of weeks ago (in-office HgbA1c was previously at 6.9% a few months ago) - goal is < 7.0% Reinforced diabetic diet Continue Glipizide ER 5 mg QD, Lantus 10 units SQ Q PM and Trulicity 3 mg SQ once a week Follow up with [facility] Endocrinology (Dr. Guerrier) as scheduled Per request, Rx for diabetic shoes inserts provided to patient (4) Benign essential hypertension: Code(s): I10 - Essential (primary) hypertension Plan: Reinforced low sodium diet - goal is systolic BP of 120 mm or less Continue Olmesartan 40 mg QD, Amlodipine 10 mg QD, HCTZ 25 mg QD and Hydralazine 100 mg TID; he was taken off his Metoprolol ER 50 mg BID due to his asthma Patient is again reminded to continue monitoring his blood pressure regularly (5) Pure hypercholesterolemia: Code(s): E78.00 - Pure hypercholesterolemia, unspecified Plan: Patient used to take Atorvastatin 80 mg QD and Ezetimibe 10 mg QD but he seems to have stopped taking these on his own at some point - he himself states that he is not sure when he exactly stopped taking these meds or why he stopped them His cholesterol levels appear to be acceptable on his recent labs so we can hold off on starting him back on cholesterol meds at this time Will have him recheck his labs and fasting lipids in 4 months for follow-up and advised that if his numbers go back up, then we may need to start him back on some Rx for his cholesterol then Reinforced low cholesterol diet for now (6) Postprandial epigastric pain: Comment: Reviewed medication list, he will follow back with PCP for further evaluation- Code(s): R10.13 - Epigastric pain Plan: Suspect gastritis Continue Omeprazole 40 mg QD Barium swallow done back in December 2021 revealed only (+) GERD; gastric emptying time done last year came back normal States that he was advised by GI last year that he will be scheduled for EGD for further evaluation once he is cleared by anesthesia but states that nobody has called him back or checked back with him again about this since Will refer him BACK again to GI for further evaluation and management - advised that with his recurrent epigastric pain, he should have an EGD done at some point for further evaluation (7) GERD without esophagitis: Code(s): K21.9 - Gastro-esophageal reflux disease without esophagitis Plan: Dietary restrictions reinforced Barium swallow done last year revealed findings of GERD; gastric emptying time done subsequently came back normal Continue Omeprazole 40 mg QD (8) Asthma-COPD overlap syndrome: Code(s): J44.9 - Chronic obstructive pulmonary disease, unspecified Plan: Continue Trelegy Ellipta 200-62.5-25 mcg 1 inhalation QD, Daliresp 250 mcg 1 tablet QD, Montelukast 10 mg Q PM and Albuterol HFA 2 inhalations every 6 hours as needed He is currently being worked up further to see if he is a candidate for injection therapy with the newer biologic Rxs Follow up with pulmonary at [facility] as scheduled (9) Migraine: Code(s): G43.909 - Migraine, unspecified, not intractable, without status migrainosus Qualifiers: Migraine type: unspecified Status migrainosus presence: without status migrainosus Intractability: not intractable Qualified Code(s): G43.909 - Migraine, unspecified, not intractable, without status migrainosus Plan: Stable lately He was tried on Topiramate 25 mg Q HS for headache prophylaxis a few years ago but appears to have self-discontinued this shortly afterwards - he does not recall at present whether it helped him back then or not (10) Lumbar degenerative disc disease: Code(s): M51.36 - Other intervertebral disc degeneration, lumbar region Plan: Reinforced activity and weight-lifting restrictions Continue Gabapentin 400 mg 1 capsule in AM, 1 capsule in PM and 2 capsules at bedtime He has been referred to [facility] Pain Management for further recommendations and management plan for his chronic low back pain (11) Stasis edema of both lower extremities: Code(s): I87.303 - Chronic venous hypertension (idiopathic) without complications of bilateral lower extremity Plan: Reinforced again to elevate his legs as often as he can and to also wear his compression stockings regularly to help minimize his leg swelling Follow up with vascular surgery as scheduled (12) Erectile dysfunction: Code(s): N52.9 - Male erectile dysfunction, unspecified Qualifiers: Erectile dysfunction type: unspecified Qualified Code(s): N52.9 - Male erectile dysfunction, unspecified Plan: Continue Sildenafil 50 mg PRN Follow up with urology as scheduled (13) Insomnia: Code(s): G47.00 - Insomnia, unspecified Qualifiers: Insomnia type: unspecified Qualified Code(s): G47.00 - Insomnia, unspecified Plan: Sleep hygiene reinforced Continue Zolpidem 10 mg Q HS PRN; also takes Melatonin 10 mg Q HS PRN Was tried previously on Lunesta but states that he cannot stand its aftertaste (14) Anxiety: Code(s): F41.9 - Anxiety disorder, unspecified Plan: Continue Lorazepam 0.5 mg 1 to 2 tablets BID PRN - Rx refilled (15) Major depressive disorder, recurrent: Code(s): F33.9 - Major depressive disorder, recurrent, unspecified Qualifiers: Active/Remission status: currently active Major depression episode severity: unspecified Qualified Code(s): F33.9 - Major depressive disorder, recurrent, unspecified Plan: Was on Sertraline 50 mg QD in the past but stopped taking it at some point - is not sure when or why but states that he feels okay without the Rx for now Follow up with psychiatry as scheduled (16) Obesity (BMI 30-39.9): Code(s): E66.9 - Obesity, unspecified Plan: Reinforced diet/exercise as tolerated/lose weight (17) Colon cancer screening: Code(s): Z12.11 - Encounter for screening for malignant neoplasm of colon Plan: Patient is overdue for his repeat colonoscopy (due in 2020) and will refer him back to GI for repeat colonoscopy Plan Follow up in 4 months Orders: Orders Complete Blood Count Auto Diff 4 Months D64.9 - Anemia, unspecified Comprehensive Kirvin. Panel Fast 4 Months E78.00 - Pure hypercholesterolemia, unspecified Lipid Panel 4 Months E78.00 - Pure hypercholesterolemia, unspecified Hemoglobin A1c 4 Months E11.9 - Type 2 diabetes mellitus without complications Microalbumin, Random (w Creat) 4 Months E11.9 - Type 2 diabetes mellitus without complications TSH reflex Free T4 4 Months E78.00 - Pure hypercholesterolemia, unspecified UA CC w/rflx Micro + Cult 4 Months R30.0 - Dysuria Vitamin D 25-OH Total 4 Months E55.9 - Vitamin D deficiency, unspecified Referrals Gastroenterology Referral Z12.11 - Encounter for screening for malignant neoplasm of colon Medications: New cephalexin 500 mg PO Q6H 28 caps 0RF 7 days [DIABETIC SHOES with INSERTS] As directed 2 ea 0RF E11.9 - Type 2 diabetes mellitus without complications, Z79.4 - intermediate (current) use of insulin Changed From lorazepam 1 to 2 tablets orally twice a day as needed; PRN; 30 days 60 tabs 0RF anxiety To lorazepam 1 to 2 tablets orally twice a day as needed; PRN; 60 tabs 0RF anxiety 30 days Coding Level of Care Code Est Pt Prev Care 40-64y(57738) Diagnoses Annual physical exam Z00.00 Upper respiratory tract infection, unspecified type J06.9 URI type: unspecified URI Type 2 diabetes mellitus with hyperglycemia, without long-term current use of insulin E11.65 Benign essential hypertension I10 Pure hypercholesterolemia E78.00 Postprandial epigastric pain R10.13 GERD without esophagitis K21.9 Asthma-COPD overlap syndrome J44.9 Migraine without status migrainosus, not intractable, unspecified migraine type G43.909 Migraine type: unspecified Status migrainosus presence: without status migrainosus Intractability: not intractable Lumbar degenerative disc disease M51.36 Stasis edema of both lower extremities I87.303 Erectile dysfunction, unspecified erectile dysfunction type N52.9 Erectile dysfunction type: unspecified Insomnia, unspecified type G47.00 Insomnia type: unspecified Anxiety F41.9 Episode of recurrent major depressive disorder, unspecified depression episode severity F33.9 Active/Remission status: currently active Major depression episode severity: unspecified Obesity (BMI 30-39.9) E66.9 Colon cancer screening Z12.11
== END 2023-05-23 13:52 | disposition home or self-care (01) ==
PROVIDERS: PCP Internal Medicine; Visit Provider Internal Medicine
DX: Z00.00 Encounter for general adult medical examination without abnormal findings (principal); E11.65 Type 2 diabetes mellitus with hyperglycemia; J44.9 Chronic obstructive pulmonary disease, unspecified; F33.9 Major depressive disorder, recurrent, unspecified; I10 Essential (primary) hypertension; J06.9 Acute upper respiratory infection, unspecified; R10.13 Epigastric pain; E78.00 Pure hypercholesterolemia, unspecified; K21.9 Gastro-esophageal reflux disease without esophagitis; G43.909 Migraine, unspecified, not intractable, without status migrainosus; M51.36 Other intervertebral disc degeneration, lumbar region; I87.303 Chronic venous hypertension (idiopathic) without complications of bilateral lower extremity
CPT/HCPCS: 99396

== ENCOUNTER 2023-06-06 12:38 | Outpatient (REF) | payer OTHER, SELFPAY ==
[2023-06-06 13:24] LABS: MANUAL DIFF FLAG NO
[2023-06-06 13:49] LABS: Basophils Absolute Auto 0.1 X10*3/uL (0.0-0.2); Basophils Percent Auto 0.7 % (0-2); Eosinophils Absolute Auto 0.2 X10*3/uL (0.0-0.4); Eosinophils Percent Auto 2.6 % (0-4); Hematocrit 46.6 % (42.0-52.0); Hemoglobin 15.3 g/dl (14.0-18.0); Imm Gran Abs Auto 0.03 X10*3/uL (0.00-0.03); Imm Gran Pct Auto 0.4 % (0.0-0.4); Lymphocytes Absolute Auto 1.4 X10*3/uL (1.2-4.9); Lymphocytes Percent Auto 17.2 % (20-40); Mean Corpuscular HGB Conc 32.8 g/dl (31.0-36.0); Mean Corpuscular Hemoglobin 29.3 pg (27.0-33.0); Mean Corpuscular Volume 89.3 fL (80.0-98.0); Mean Platelet Volume 10.6 fL (9.4-12.4); Monocytes Absolute Auto 0.5 X10*3/uL (0.1-1.2); Monocytes Percent Auto 6.3 % (2-11); Neutrophils Absolute Auto 5.9 x10*3/uL (2.0-8.3); Neutrophils Percent Auto 72.8 % (45-73); Platelet Count 315 X10*3/uL (160-400); Red Blood Count 5.22 X10*6/uL (4.60-5.80); Red Cell Distribution Width 12.8 % (11.0-16.0); White Blood Count 8.1 X10*3/uL (4.8-10.8)
[2023-06-06 13:51] LABS: Estimated Average Glucose 131 mg/dL; Hemoglobin A1c % 6.2 % (<6.0)
[2023-06-06 14:00] LABS: Appearance Urine Clear; Color Urine Yellow; Glucose Urine UA Negative (Negative); Leukocyte Esterase Urine Negative (Negative); Nitrite Urine Negative (Negative); Urine Blood Negative (Negative); Urine Ketones Negative (Negative); Urine Protein Negative (Neg-Trace)
[2023-06-06 14:14] LABS: Alanine Aminotransferase 24 U/L (0-40); Albumin Level 3.9 g/dL (3.5-5.0); Alkaline Phosphatase 67 U/L (39-117); Anion Gap 12 (12-20); Aspartate Amino Transferase 16 U/L (5-37); Bilirubin Total 0.7 mg/dL (0.0-1.0); Blood Urea Nitrogen 14 mg/dL (9-16); Calcium 9.1 mg/dL (8.4-10.2); Carbon Dioxide 25 mmol/L (22-29); Chloride 105 mmol/L (96-108); Cholesterol 143 mg/dL (<200); Estimated Glomerular Filt Rate > 60; Glucose Fasting 147 mg/dL (60-99); HDL Cholesterol 32 mg/dL (>40); LDL Cholesterol Calculated 91 mg/dL (<100); Sodium 138 mmol/L (135-145); Total Protein 6.7 g/dL (6.5-8.0); Triglycerides 101 mg/dL (<150)
[2023-06-06 14:26] LABS: Creatinine Urine 146.62 mg/dL; Microalbum/Creatinine Ratio Ur 3.4 ug/mg cr (<30)
[2023-06-06 14:30] LABS: TSH reflex Free T4 1.47 uIU/mL (0.32-4.0)
[2023-06-07 07:21] LABS: Syphilis Screen Nonreactive (Nonreactive)
[2023-06-07 07:53] LABS: HBc Num1 0.09 S/CO (0.00-0.79); HBsAGNum1 0.36 S/CO (0.00-0.99); Hepatitis B Core Antibody Nonreactive (Nonreactive); Hepatitis B Surface Antigen Negative (Negative); ~HepC Num1 0.19 S/CO (0.00-0.79); ~Hepatitis B Surface Antibody NONREACTIVE (Nonreactive); ~Hepatitis C Antibody Nonreactive (Nonreactive)
[2023-06-07 08:05] LABS: HIV AB/AG Nonreactive (Nonreactive); HIV Num 1 0.07 S/CO (0.00-0.99)
== END 2023-06-06 12:39 | disposition home or self-care (01) ==
LOC: HO.10HDL 12:38
PROVIDERS: Internal Medicine; Visit Provider Internal Medicine
DX: Z11.4 Encounter for screening for human immunodeficiency virus [HIV] (principal); N52.9 Male erectile dysfunction, unspecified; R79.89 Other specified abnormal findings of blood chemistry; D64.9 Anemia, unspecified; E78.00 Pure hypercholesterolemia, unspecified; R30.0 Dysuria; E55.9 Vitamin D deficiency, unspecified; E11.9 Type 2 diabetes mellitus without complications; Z20.2 Contact with and (suspected) exposure to infections with a predominantly sexual mode of transmission
CPT/HCPCS: 36415; 80053; 80061; 81003; 82043; 82306; 82570; 83036; 84443; 85025; 86704; 86706; 86780; 86803; 87340; 87389

== ENCOUNTER 2023-07-11 23:19 | Emergency (ER) | payer OTHER, SELFPAY ==
[2023-07-11 23:37] VITALS: BP 172/100; PULSE 84; RESP 16; TEMP 36.8; O2SAT 96; BMI 33.8
[2023-07-12 04:48] VITALS: BP 173/95; PULSE 76; RESP 16; TEMP 36.7; O2SAT 98
[2023-07-12 05:02] LABS: Basophils Absolute Auto 0.1 X10*3/uL (0.0-0.2); Basophils Percent Auto 0.7 % (0-2); Eosinophils Absolute Auto 0.2 X10*3/uL (0.0-0.4); Eosinophils Percent Auto 2.3 % (0-4); Hematocrit 45.2 % (42.0-52.0); Imm Gran Abs Auto 0.02 X10*3/uL (0.00-0.03); Imm Gran Pct Auto 0.2 % (0.0-0.4); Lymphocytes Absolute Auto 2.5 X10*3/uL (1.2-4.9); Lymphocytes Percent Auto 30.3 % (20-40); MANUAL DIFF FLAG NO; Mean Corpuscular HGB Conc 33.2 g/dl (31.0-36.0); Mean Corpuscular Hemoglobin 29.4 pg (27.0-33.0); Mean Corpuscular Volume 88.6 fL (80.0-98.0); Mean Platelet Volume 10.2 fL (9.4-12.4); Monocytes Absolute Auto 0.7 X10*3/uL (0.1-1.2); Monocytes Percent Auto 8.6 % (2-11); Neutrophils Absolute Auto 4.8 x10*3/uL (2.0-8.3); Neutrophils Percent Auto 57.9 % (45-73); Platelet Count 290 X10*3/uL (160-400); Red Cell Distribution Width 12.6 % (11.0-16.0); White Blood Count 8.3 X10*3/uL (4.8-10.8)
--- NOTE | 2023-07-12 05:02 | MHC.EDTECH ---
PATIENT VITALS TAKEN ,BLOOD DRAWN AND URINE SAMPLE COLLECTED AND SENT TO LAB .
[2023-07-12 05:03] LABS: Appearance Urine Clear; Color Urine Yellow; Glucose Urine UA Negative (Negative); Leukocyte Esterase Urine Negative (Negative); Nitrite Urine Negative (Negative); PH 5.5 (5.0-9.0); Specific Gravity - Urine 1.025 (1.005-1.025); Urine Blood Negative (Negative); Urine Ketones Trace mg/dL (Negative); Urine Protein Negative (Neg-Trace)
[2023-07-12 05:15] LABS: Alanine Aminotransferase 25 U/L (0-40); Alkaline Phosphatase 55 U/L (39-117); Anion Gap 12 (12-20); Aspartate Amino Transferase 17 U/L (5-37); Bilirubin Total 0.5 mg/dL (0.0-1.0); Blood Urea Nitrogen 18 mg/dL (9-16); Calcium 9.4 mg/dL (8.4-10.2); Carbon Dioxide 24 mmol/L (22-29); Chloride 108 mmol/L (96-108); Creatinine Clr Calc Pharmacy 81.3; Estimated Glomerular Filt Rate > 60; Glucose Random 107 mg/dL (60-115); Potassium 4.1 mmol/L (3.3-5.1); Sodium 140 mmol/L (135-145); Total Protein 6.7 g/dL (6.5-8.0)
--- NOTE | 2023-07-12 06:34 | ED_ITS ---
HPI - Back Pain/Injury General Chief Complaint: Abdominal Pain Stated Complaint: back pain which led to right side pain Time Seen by Provider: 07/12/23 05:52 Related Data Home Medications ?Medication ?Instructions ?Recorded ?Confirmed aspirin 81 mg tablet,delayed 81 mg PO DAILY 02/18/20 06/10/23 release CPAP (CPAP Machine/Device) 11/19/21 06/10/23 cholecalciferol (vitamin D3) 25 75 mcg PO .Q2days 04/19/22 06/10/23 mcg (1,000 unit) capsule Previous Rx's ?Medication ?Instructions ?Recorded naproxen 500 mg tablet 500 mg PO BID PRN pain 10 days #20 02/19/20 tabs amlodipine 10 mg tablet 10 mg PO DAILY #90 tabs 05/11/20 budesonide 0.5 mg/2 mL suspension 0.5 mg (2 mL) inhalation BID 30 11/17/20 for nebulization days #120 mL mupirocin 2 % topical ointment 1 appl topical TID PRN infection 01/13/21 10 days #66 grams PULSE OXIMETER #1 ea 08/26/21 HIP BRACE (left hip) #1 ea 09/28/21 THERMOMETER #1 ea 09/28/21 ipratropium 0.5 mg-albuterol 3 mg 3 ml inhalation Q6H PRN shortness 11/19/21 (2.5 mg base)/3 mL nebulization of breath or wheezing #180 mL soln azelastine 205.5 mcg (0.15 %) 2 spray intranasal BID 30 days #30 11/24/21 nasal spray mL clotrimazole-betamethasone 1 1 appl topical BID PRN rash #45 11/24/21 %-0.05 % topical cream grams ezetimibe 10 mg tablet (Zetia) 10 mg PO DAILY #90 tabs 11/24/21 fluticasone fur. 200 mcg-umeclid 1 inh inhalation DAILY 30 days #60 11/24/21 62.5 mcg-vilant 25 mcg ea inhalat.powder (Trelegy Ellipta) latanoprost 0.005 % eye drops 1 drp ophthalmic (eye) DAILY #7.5 11/24/21 mL melatonin 5 mg capsule 10 mg (2 x 5 mg) PO BEDTIME #30 11/24/21 caps blood-glucose meter (FreeStyle #1 ea 03/01/22 Lite Meter kit) lancets 28 gauge (FreeStyle 28 gauge topical TID #300 ea 03/01/22 Lancets) COMPRESSION STOCKINGS (medium #3 ea 03/03/22 compression - 20 to 30 mm); Knee high epinephrine 0.3 mg/0.3 mL 0.3 mg (0.3 mL) IM Q4H PRN 05/27/22 injection, auto-injector (EpiPen anaphylaxis #2 ea 2-Dread) bisacodyl 5 mg tablet,delayed 10 mg (2 x 5 mg) PO ONCE 07/21/22 release (Dulcolax (bisacodyl)) colonoscopy prep 1 day #2 tabs polyethylene glycol 3350 17 238 g PO ONCE 1 day #238 grams 07/21/22 gram/dose oral powder (Miralax) lancets 28 gauge (FreeStyle #100 ea 07/25/22 Lancets) blood pressure monitor (Blood #1 ea 07/26/22 Pressure Kit) omeprazole 40 mg capsule,delayed 40 mg PO DAILY #30 caps 09/19/22 release prednisone 10 mg tablet See Rx Instructions PO DAILY 18 09/19/22 days #63 tabs diphenhydramine HCl 25 mg capsule 25 mg PO TID PRN allergic reaction 09/24/22 (Benadryl) #20 caps montelukast 10 mg tablet 10 mg PO QPM #90 tabs 09/28/22 olmesartan 40 mg tablet 40 mg PO DAILY #90 tabs 10/26/22 zolpidem 10 mg tablet 10 mg PO BEDTIME PRN insomnia 30 11/23/22 days #30 tabs prednisone 10 mg tablet See Rx Instructions PO DAILY 10 11/25/22 days #15 tabs albuterol sulfate 2.5 mg/3 mL 2.5 mg (3 mL) continuous 12/14/22 (0.083 %) solution for nebulization nebulization QID PRN shortness of breath or wheezing 30 days #480 mL nebulizer accessories #1 ea 12/22/22 nebulizers #1 ea 12/22/22 hydralazine 100 mg tablet 100 mg PO TID 90 days #270 tabs 12/29/22 alcohol swabs (BD Alcohol Swabs) 1 pad topical TID for diabetes 02/17/23 mellitus #300 pad blood sugar diagnostic (FreeStyle #100 ea 02/17/23 Lite Strips) dulaglutide 3 mg/0.5 mL 3 mg (0.5 mL) subcut QWEEK #2 mL 02/17/23 subcutaneous pen injector (Trulicity) insulin glargine 100 unit/mL (3 10 unit (0.1 mL) subcut QPM #15 mL 02/17/23 mL) subcutaneous pen (Lantus Solostar U-100 Insulin) albuterol sulfate 90 mcg/actuation 2 puff PO QID PRN shortness of 02/21/23 aerosol inhaler (Ventolin HFA) breath or wheezing 90 days #3 multiple units glipizide 5 mg tablet, extended 5 mg PO DAILY #90 tabs 04/12/23 release 24 hr hydrochlorothiazide 25 mg tablet 25 mg PO DAILY #90 tabs 04/12/23 sildenafil 50 mg tablet 50 mg PO DAILY PRN sexual activity 05/15/23 #10 tabs DIABETIC SHOES with INSERTS #2 ea 05/23/23 cephalexin 500 mg capsule 500 mg PO Q6H 7 days #28 caps 05/23/23 lorazepam 0.5 mg tablet See Rx Instructions .Route 05/23/23 .COMPLEX PRN anxiety 30 days #60 tabs azithromycin 250 mg tablet 250 mg PO 3XW #12 tabs 06/08/23 gabapentin 400 mg capsule See Rx Instructions PO .COMPLEX 28 06/21/23 days #112 caps tamsulosin 0.4 mg capsule 0.4 mg PO DAILY 90 days #90 caps 06/21/23 pen needle, diabetic 31 gauge x #50 ea 07/10/2306/02 (BD Ultra-Fine Mini Pen Needle) cyclobenzaprine 10 mg tablet 10 mg PO BEDTIME PRN muscle spasm 07/12/23 #5 tabs Allergies Allergy/AdvReac Type Severity Reaction Status Date / Time iodine [Iodine] Allergy Severe THROAT Verified 07/11/23 23:40 SWELLING lisinopril Allergy Severe Rash Verified 07/11/23 23:40 metformin Allergy Severe diarrhea Verified 07/11/23 23:40 meperidine [From Demerol] Allergy Mild RASH Verified 07/11/23 23:40 oxycodone [From Percocet] AdvReac Mild MOUTH Verified 07/11/23 23:40 DRYNESS,RASH Mercury Detox Allergy Severe Close Uncoded 07/11/23 23:40 Throat Shellfish Allergy Severe THROAT Uncoded 07/11/23 23:40 SWELLING PMFSH Past Medical History Medical History Diabetes Hx of fracture of fibula GERD without esophagitis Asthma-COPD overlap syndrome Diastasis recti Laryngospasm JOSÉ (obstructive sleep apnea) Bursitis Low back pain Claustrophobia GERD (gastroesophageal reflux disease) Hemoptysis Anxiety Insomnia Migraine Pure hypercholesterolemia Benign essential hypertension Type 2 diabetes mellitus with hyperglycemia, without long-term current use of insulin Stasis edema of both lower extremities Lumbar degenerative disc disease Obesity (BMI 30-39.9) Chronic rhinitis Hiatal hernia Erectile dysfunction Asthma Surgical History History of endoscopy Hx of colonoscopy Hx of cardiac catheterization History of nasal surgery History of carpal tunnel surgery Family History Family History Father No problems noted. Mother Chronic kidney disease (CKD) Heart attack Other Mental health problem Social History Social History Household Members: Spouse and Children Household Members Other:: , kids Housing: House Alcohol intake: never Patient Tobacco Use Status: Never used Tobacco Smoked in Last 30 Days: No e-Cigarette/Vaping Use: Never Used Second Hand Smoke Exposure: Yes (employees smoked atwork) Use of substances other than those prescribed or required for medical reasons: No Advance Directives: No Advance Directives Information Provided: Yes Do you have a plan to hurt others: No Plan service: No Current occupational status: disabled Cognitive needs: No Hearing needs: No Vision needs: No Physical Exam 2 Vital Signs: Vital Signs: Last Vital Signs Temp 98.1 F 07/12/23 04:48 Pulse 76 07/12/23 04:48 Resp 16 07/12/23 04:48 BP 173/95 H 07/12/23 04:48 Pulse Ox 98 07/12/23 04:48 O2 Del Method Room Air 07/12/23 04:48 BMI result Body Mass Index 33.8 Medical Decision Making Lab Data 07/12/23 04:57 07/12/23 04:57 Labs: Lab Results 07/12/23 07/12/23 Range/Units 04:56 04:57 WBC 8.3 (4.8-10.8) X10*3/uL RBC 5.10 (4.60-5.80) X10*6/uL Hgb 15.0 (14.0-18.0) g/dl Hct 45.2 (42.0-52.0) % MCV 88.6 (80.0-98.0) fL MCH 29.4 (27.0-33.0) pg MCHC 33.2 (31.0-36.0) g/dl RDW 12.6 (11.0-16.0) % Plt Count 290 (160-400) X10*3/uL MPV 10.2 (9.4-12.4) fL Immature Gran % (Auto) 0.2 (0.0-0.4) % Neut % (Auto) 57.9 (45-73) % Lymph % (Auto) 30.3 (20-40) % [place] % (Auto) 8.6 (2-11) % Eos % (Auto) 2.3 (0-4) % Baso % (Auto) 0.7 (0-2) % Lymph # (Auto) 2.5 (1.2-4.9) X10*3/uL [place] # (Auto) 0.7 (0.1-1.2) X10*3/uL Eos # (Auto) 0.2 (0.0-0.4) X10*3/uL Baso # (Auto) 0.1 (0.0-0.2) X10*3/uL Abs Immat Gran (auto) 0.02 (0.00-0.03) X10*3/uL Absolute Neuts (auto) 4.8 (2.0-8.3) x10*3/uL Absolute Nucleated RBC 0.000 (0.0-0.012) X10*3/uL Nucleated RBC % (auto) 0.0 (0.0-0.2) /100WBC Sodium 140 (135-145) mmol/L Potassium 4.1 (3.3-5.1) mmol/L Chloride 108 (96-108) mmol/L Carbon Dioxide 24 (22-29) mmol/L Anion Gap 12 (12-20) BUN 18 H (9-16) mg/dL Creatinine 1.09 (0.5-1.4) mg/dL Estim Creat Clear Calc 81.3 Estimated GFR > 60 Random Glucose 107 (60-115) mg/dL Calcium 9.4 (8.4-10.2) mg/dL Total Bilirubin 0.5 (0.0-1.0) mg/dL AST 17 (5-37) U/L ALT 25 (0-40) U/L Alkaline Phosphatase 55 (39-117) U/L Total Protein 6.7 (6.5-8.0) g/dL Albumin 4.0 (3.5-5.0) g/dL Urine Color Yellow Urine Appearance Clear Urine pH 5.5 (5.0-9.0) Ur Specific [place] 1.025 (1.005-1.025) Urine Protein Negative (Neg-Trace) mg/dL Urine Glucose (UA) Negative (Negative) mg/dL Urine Ketones Trace (Negative) mg/dL Urine Blood Negative (Negative) Urine Nitrite Negative (Negative) Ur Leukocyte Esterase Negative (Negative) Discharge Plan Discharge Clinical Impression: Acute exacerbation of chronic low back pain, Muscle spasm, Muscle strain of right upper back Patient Disposition: Home, Self-Care Instructions: Muscle Strain (ED), Muscle Spasm (ED), Lower Back Exercises (ED) Additional Instructions: 1. Tylenol 1000 mg, orally, every 6 hours as needed for pain control. Do not exceed 4000 mg within 24 hours. 2. Ibuprofen 400 mg, orally with milk or food, every 6 hours as needed for pain control. Please take this medication with Tylenol for improved symptom relief. 3. Lidocaine patch, apply to area of maximal tenderness as directed on the outside packaging. 4. Your receiving a prescription for muscle relaxant and should use this at night prior to going to bed. 5. Please follow-up with your primary care doctor and discuss referral for physical therapy. Return to the ER for any worsening symptoms. Prescriptions: New cyclobenzaprine 10 mg tablet 10 mg PO BEDTIME PRN (Reason: muscle spasm) Qty: 5 0RF No Action budesonide 0.5 mg/2 mL suspension for nebulization 0.5 mg inhalation BID 30 Days Qty: 120 6RF mupirocin 2 % ointment 1 appl topical TID PRN (Reason: infection) 10 Days Qty: 66 2RF (DME) PULSE OXIMETER See Rx Instructions .Route .MEDSUPPLY Qty: 1 0RF Rx Instructions: As directed (DME) HIP BRACE (left hip) See Rx Instructions .Route .MEDSUPPLY Qty: 1 0RF Rx Instructions: As directed (DME) THERMOMETER See Rx Instructions .Route .MEDSUPPLY Qty: 1 0RF Rx Instructions: As directed ipratropium-albuterol 0.5 mg-3 mg(2.5 mg base)/3 mL solution for nebulization 3 ml inhalation Q6H PRN (Reason: shortness of breath or wheezing) Qty: 180 2RF ezetimibe [Zetia] 10 mg tablet 10 mg PO DAILY Qty: 90 3RF azelastine 205.5 mcg (0.15 %) spray,non-aerosol 2 spray intranasal BID 30 Days Qty: 30 11RF Rx Instructions: administer into each nostril clotrimazole-betamethasone 1-0.05 % cream 1 appl topical BID PRN (Reason: rash) Qty: 45 5RF Trelegy Ellipta 200-62.5-25 mcg blister with device 1 inh inhalation DAILY 30 Days Qty: 60 12RF latanoprost 0.005 % drops 1 drp ophthalmic (eye) DAILY Qty: 7.5 3RF Rx Instructions: as directed melatonin 5 mg capsule 10 mg PO BEDTIME Qty: 30 0RF (DME) blood-glucose meter [FreeStyle Lite Meter] Kit See Rx Instructions .Route Qty: 1 0RF Rx Instructions: As directed- To test blood sugar three times a day lancets [FreeStyle Lancets] 28 gauge misc 28 gauge topical TID Qty: 300 11RF epinephrine [EpiPen 2-Dread] 0.3 mg/0.3 mL auto-injector 0.3 mg IM Q4H PRN (Reason: anaphylaxis) Qty: 2 0RF (DME) lancets [FreeStyle Lancets] 28 gauge misc See Rx Instructions .Route Qty: 100 4RF Rx Instructions: As directed 4 X/day (DME) blood pressure monitor [Blood Pressure Kit] Kit See Rx Instructions .Route Qty: 1 0RF Rx Instructions: Take BP up to once daily and keep a log montelukast 10 mg tablet 10 mg PO QPM Qty: 90 3RF olmesartan 40 mg tablet 40 mg PO DAILY Qty: 90 3RF zolpidem 10 mg tablet 10 mg PO BEDTIME PRN (Reason: insomnia) 30 Days Qty: 30 3RF albuterol sulfate 2.5 mg /3 mL (0.083 %) solution for nebulization 2.5 mg continuous nebulization QID PRN (Reason: shortness of breath or wheezing) 30 Days Qty: 480 5RF (DME) nebulizers [facility] [place] See Rx Instructions .Route Qty: 1 0RF Rx Instructions: As directed (DME) nebulizer accessories [facility] [place] See Rx Instructions .ROUTE .MEDSUPPLY Qty: 1 11RF Rx Instructions: tubing, mask, nebulizer cup, mouth piece alcohol swabs [BD Alcohol Swabs] Pads, Medicated 1 pad topical TID Qty: 300 0RF (DME) FreeStyle Lite Strips Strip See Rx Instructions .Route Qty: 100 5RF Rx Instructions: As directed tests 5 X/day insulin glargine [Lantus Solostar U-100 Insulin] 100 unit/mL (3 mL) insulin pen 10 unit subcut QPM Qty: 15 2RF Trulicity 3 mg/0.5 mL pen injector 3 mg subcut QWEEK Qty: 2 5RF albuterol sulfate [Ventolin HFA] 90 mcg/actuation HFA aerosol inhaler 2 puff PO QID PRN (Reason: shortness of breath or wheezing) 90 Days Qty: 3 3RF hydrochlorothiazide 25 mg tablet 25 mg PO DAILY Qty: 90 1RF glipizide 5 mg tablet extended release 24hr 5 mg PO DAILY Qty: 90 1RF sildenafil 50 mg tablet 50 mg PO DAILY PRN (Reason: sexual activity) Qty: 10 1RF azithromycin 250 mg tablet 250 mg PO 3XW Qty: 12 2RF gabapentin 400 mg capsule See Rx Instructions PO .COMPLEX 28 Days Qty: 112 1RF Rx Instructions: 1 capsule BID and 2 capsules at bedtime orally -(4 capsules a day in total) tamsulosin 0.4 mg capsule 0.4 mg PO DAILY 90 Days Qty: 90 1RF (DME) pen needle, diabetic [BD Ultra-Fine Mini Pen Needle] 31 gauge x 3/16 needle See Rx Instructions miscellaneous .MEDSUPPLY Qty: 50 12RF Rx Instructions: As directed 1x daily. diphenhydramine HCl [Benadryl] 25 mg capsule 25 mg PO TID PRN (Reason: allergic reaction) Qty: 20 0RF aspirin 81 mg tablet,delayed release (DR/EC) 81 mg PO DAILY naproxen 500 mg tablet 500 mg PO BID PRN (Reason: pain) 10 Days Qty: 20 0RF (DME) COMPRESSION STOCKINGS (medium compression - 20 to 30 mm); Knee high medium compression See Rx Instructions .Route .MEDSUPPLY Qty: 3 11RF Rx Instructions: As directed cephalexin 500 mg capsule 500 mg PO Q6H 7 Days Qty: 28 0RF lorazepam 0.5 mg tablet See Rx Instructions .ROUTE .COMPLEX PRN (Reason: anxiety) 30 Days Qty: 60 0RF Rx Instructions: 1 to 2 tablets orally twice a day as needed; PRN; (DME) DIABETIC SHOES with INSERTS See Rx Instructions .Route .MEDSUPPLY Qty: 2 0RF Rx Instructions: As directed amlodipine 10 mg tablet 10 mg PO DAILY Qty: 90 1RF (DME) CPAP Machine/Device Device See Rx Instructions .Route Rx Instructions: As directed cholecalciferol (vitamin D3) 25 mcg (1,000 unit) capsule 75 mcg PO .Q2days bisacodyl [Dulcolax (bisacodyl)] 5 mg tablet,delayed release (DR/EC) 10 mg PO ONCE 1 Days Qty: 2 0RF Rx Instructions: Take 2 tablets by mouth at 12:00pm the day before your procedure. polyethylene glycol 3350 [Miralax] 17 gram/dose powder 238 g PO ONCE 1 Days Qty: 238 0RF Rx Instructions: Take as directed by mouth the day before your procedure. prednisone 10 mg tablet See Rx Instructions PO DAILY 18 Days Qty: 63 0RF Rx Instructions: PO daily; Take 6 tabs daily x 3 days, then 5 tabs x 3 days, then 4 tabs x 3 days, then 3 tabs x 3 days, then 2 tabs daily x 3 days, then 1 tab x 3 days to complete. omeprazole 40 mg capsule,delayed release(DR/EC) 40 mg PO DAILY Qty: 30 11RF hydralazine 100 mg tablet 100 mg PO TID 90 Days Qty: 270 3RF prednisone 10 mg tablet See Rx Instructions PO DAILY 10 Days Qty: 15 0RF Rx Instructions: PO daily; Take 2 by mouth daily x 5 days, then 1 tab daily x 5 days Referrals: Oliverio Emerson MD [Primary Care Provider] - Print Language: Armenian
[2023-07-12] MEDS: Ibuprofen 400 MG TABLET PO (06:52)
[2023-07-12] MEDS: Acetaminophen 325 MG TABLET 975 MG PO (06:52)
[2023-07-12] MEDS: Lidocaine 4 % Patch ADH..PATCH 1 PATCH TRANSDERMA (06:53)
[2023-07-12 06:58] VITALS: BP 168/88; PULSE 78; RESP 18; TEMP 36.6; O2SAT 98
== END 2023-07-12 06:58 | disposition home or self-care (01) ==
PROVIDERS: Emergency Provider Student in an Organized Health Care Education/Training Program; PCP Internal Medicine
DX: S29.012A Strain of muscle and tendon of back wall of thorax, initial encounter (principal); M62.830 Muscle spasm of back; G89.29 Other chronic pain; M54.50 Low back pain, unspecified; E11.9 Type 2 diabetes mellitus without complications; I10 Essential (primary) hypertension; X58.XXXA Exposure to other specified factors, initial encounter; Y93.9 Activity, unspecified; Y92.9 Unspecified place or not applicable; Y99.9 Unspecified external cause status
CPT/HCPCS: 36415; 80053; 81003; 85025; 99283; 99284

== ENCOUNTER 2023-07-13 09:05 | Outpatient (AMB) | payer OTHER, SELFPAY ==
--- NOTE | 2023-07-13 09:09 | A.OFFVIS_ITS ---
Vital Signs 07/13/23 09:11 Height 5 ft 7 in Weight 215 lb BMI 33.7 BP 157/92 H Blood Pressure Location Lt brachial Position Sitting Pulse 80 Intake Visit Reasons: pre Colonoscopy/EGD Intake Note: Keaton presents in the office as a pre consult for egd and colo. CC: Was seen in the ED because of a potential hernia - he was told he has a little hernia and he feels it when he is working out and doing sit ups. No irregular bowel movements but he did say he gets the pains in his abdomen. 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: No Allergies iodine [Iodine] Allergy (Severe, Verified 07/13/23 09:12) THROAT SWELLING lisinopril Allergy (Severe, Verified 07/13/23 09:12) Rash metformin Allergy (Severe, Verified 07/13/23 09:12) diarrhea meperidine [From Demerol] Allergy (Mild, Verified 07/13/23 09:12) RASH oxycodone [From Percocet] Adverse Reaction (Mild, Verified 07/13/23 09:12) MOUTH DRYNESS,RASH Mercury Detox Allergy (Severe, Uncoded 07/13/23 09:12) Close Throat Shellfish Allergy (Severe, Uncoded 07/13/23 09:12) THROAT SWELLING Medication List - Last Reconciled 07/13/23 by Gabriella Delvalle PA-C albuterol sulfate 2.5 mg (3 mL) continuous nebulization QID PRN 30 days albuterol sulfate 90 mcg/actuation (Ventolin HFA) 2 puffs PO QID PRN 90 days alcohol swabs (BD Alcohol Swabs) 1 pad topical TID amlodipine 10 mg PO DAILY aspirin 81 mg PO DAILY azelastine 2 sprays intranasal BID 30 days azithromycin 250 mg PO 3XW blood pressure monitor (Blood Pressure Kit) Take BP up to once daily and keep a log blood sugar diagnostic (FreeStyle Lite Strips) As directed tests 5 X/day blood-glucose meter (FreeStyle Lite Meter kit) As directed- To test blood sugar three times a day budesonide 0.5 mg (2 mL) inhalation BID 30 days cephalexin 500 mg PO Q6H 7 days cholecalciferol (vitamin D3) 75 mcg PO .Q2days clotrimazole-betamethasone 1-0.05 % 1 appl topical BID PRN [COMPRESSION STOCKINGS (medium compression - 20 to 30 mm); Knee high As directed ] CPAP (CPAP Machine/Device) As directed cyclobenzaprine 10 mg PO BEDTIME PRN [DIABETIC SHOES with INSERTS As directed] diphenhydramine HCl (Benadryl) 25 mg PO TID PRN dulaglutide (Trulicity) 3 mg (0.5 mL) subcut QWEEK epinephrine (EpiPen 2-Dread) 0.3 mg (0.3 mL) IM Q4H PRN ezetimibe (Zetia) 10 mg PO DAILY [id number] 200-62.5-25 mcg (Trelegy Ellipta) 1 inh inhalation DAILY 30 days gabapentin 1 capsule BID and 2 capsules at bedtime orally -(4 capsules a day in total) 28 days glipizide ER 5 mg PO DAILY [HIP BRACE (left hip) As directed] hydralazine 100 mg PO TID 90 days hydrochlorothiazide 25 mg PO DAILY insulin glargine (Lantus Solostar U-100 Insulin) 10 units (0.1 mL) subcut QPM ipratropium-albuterol 0.5 mg-3 mg(2.5 mg base)/3 mL 3 mL inhalation Q6H PRN lancets (FreeStyle Lancets) 28 gauge topical TID lancets (FreeStyle Lancets) As directed 4 X/day latanoprost 0.005% 1 drp ophthalmic (eye) DAILY lorazepam 1 to 2 tablets orally twice a day as needed; PRN; 30 days melatonin 10 mg (2 x 5 mg) PO BEDTIME montelukast 10 mg PO QPM mupirocin 2% 1 appl topical TID PRN 10 days nebulizer accessories tubing, mask, nebulizer cup, mouth piece nebulizers As directed olmesartan 40 mg PO DAILY omeprazole 40 mg PO DAILY pen needle, diabetic (BD Ultra-Fine Mini Pen Needle) As directed 1x daily. [PULSE OXIMETER As directed] sildenafil 50 mg PO DAILY PRN tamsulosin 0.4 mg PO DAILY 90 days [THERMOMETER As directed] zolpidem 10 mg PO BEDTIME PRN 30 days HPI Comments Details: A 58 y/o male multiple comorbidities seen 1 year ago with early satiety, -hx colon adenomas- We had GES at that time was normal. He presents today he has episodes of intermittent dysphagia, somewhat vague however asthma/COPD inhalers follows with Pulmonary. Bronchoscopy 2020 JOSÉ-he is not consistent with cpap-he does not tolerate more than 1 hour Acid reflux with water brash despite PPI-EGD 2015 He has a normal bowel pattern- random non specific abdominal pain- unable to associate with anything specific He c/o doing sit ups-having back pain-he went to ED for a ripped muscle given muscle relaxant (ED note reviewed)-referred to PCP Shortness of breath on exertion he associates to asthma, seasonal allergy- He has no nausea, vomiting, hematemesis, hematochezia fever or chills PFSH Medical History (Updated 07/15/23 @ 18:52 by Gabriella Delvalle PA-C) Diabetes Hx of fracture of fibula GERD without esophagitis Asthma-COPD overlap syndrome Diastasis recti Laryngospasm JOSÉ (obstructive sleep apnea) Bursitis Low back pain Claustrophobia GERD (gastroesophageal reflux disease) Hemoptysis Anxiety Insomnia Migraine Pure hypercholesterolemia Benign essential hypertension Type 2 diabetes mellitus with hyperglycemia, without long-term current use of insulin Stasis edema of both lower extremities Lumbar degenerative disc disease Obesity (BMI 30-39.9) Chronic rhinitis Hiatal hernia Erectile dysfunction Asthma Surgical History History of endoscopy Hx of colonoscopy Hx of cardiac catheterization History of nasal surgery History of carpal tunnel surgery Family History Father No problems noted. Mother Chronic kidney disease (CKD) Heart attack Other Mental health problem Social History Household Members: Spouse and Children Household Members Other:: , kids Housing: House Alcohol intake: never Patient Tobacco Use Status: Never used Tobacco e-Cigarette/Vaping Use: Never Used Second Hand Smoke Exposure: Yes (employees smoked atwork) service: No Current occupational status: disabled Cognitive needs: No Hearing needs: No Vision needs: No Review of Systems Const All systems reviewed & are unremarkable except as noted in HPI and below ENT Reports dysphagia Card Denies chest pain, Denies dyspnea and Reports dyspnea on exertion Resp Denies cough, Denies dyspnea and Reports dyspnea on exertion GI Denies bloating, Denies hematochezia, Denies change in bowel habits, Reports dysphagia, Reports heartburn, Denies nausea and Denies vomiting Musc Reports arthralgias Psych Reports anxiety Physical Exam Vital Signs: Last Vital Signs Pulse 80 07/13/23 09:11 BP 157/92 H 07/13/23 09:11 BMI result Body Mass Index 33.7 Const General: cooperative, healthy appearing, comfortable, no acute distress and well groomed Orientation/consciousness: patient oriented x3 Limitations: no limitations Eyes Sclerae: sclerae normal Resp Effort & Inspection: normal respiratory effort and able to speak in complete sentences Auscultation: clear to auscultation bilaterally, no rales, no rhonchi and no wheezes Cardio Rate: regular rate Rhythm: regular rhythm Heart sounds: S1 normal heart sound present and S2 normal heart sound present GI Inspection: Yes obesity Palpation (GI): Soft to palpation, nontender, no guarding and No Ascites present Percussion: Yes normal to percussion Auscultation: normal bowel sounds Skin General skin exam: no rashes or lesions noted Neuro General: patient oriented x3 Extrem General: Yes full ROM Psych Appearance: grossly normal and well kempt Speech and movement: Normal speech and movement present and Clear speech present Affect: Anxious affect present Attitude: cooperative Thought process: Normal thought process present Thought content: Normal thought content present Results Reviewed Results Reviewed: 07/2022 NM/NM gastric emptying study IMPRESSION: Normal 4-hour solid food gastric emptying study. Reviewed Pulmonary and Cardiology note-no heart failure Assessment & Plan Assessment & Plan (1) GERD without esophagitis: Comment: Good oral hygiene, inhaler Code(s): K21.9 - Gastro-esophageal reflux disease without esophagitis Category: Medical Plan: Continue PPI (2) Dysphagia: Comment: Dysphagia to solids Code(s): R13.10 - Dysphagia, unspecified Category: Medical Qualifiers: Dysphagia type: unspecified Qualified Code(s): R13.10 - Dysphagia, unspecified (3) History of adenomatous polyp of colon: Code(s): Z86.010 - Personal history of colonic polyps Category: Medical Plan: Polyp surveillance colonoscopy is as he is is (4) Diabetes: Comment: Reviewed medications Code(s): E11.9 - Type 2 diabetes mellitus without complications Category: Medical Plan: review medications Plan BMI: 33.7kg/m? Visit Date: 07/13/23 EGD possible dilation and polyp surveillance colonoscopy PAT-JOSÉ noncompliant with CPAP, soboe-asthma Patient Instructions: EGD possible dilation and polyp surveillance colonoscopy- HOLD Dulaglutide x 1 wk( takes on MON) Omit glipizide - prep day 1/2 dose insulin PM before and NO DM MEDS A. M. of procedures Follow back with PCP for none GI complaints Encouraged to call questions or concerns Coding Level of Care Code Est Pt Level 4 (93884) Diagnoses GERD without esophagitis K21.9 Dysphagia, unspecified type R13.10 Dysphagia type: unspecified History of adenomatous polyp of colon Z86.010 Diabetes E11.9 Time Spent (min) 30
[2023-07-13 09:11] VITALS: BP 157/92; PULSE 80; BMI 33.7
== END 2023-07-13 10:11 | disposition home or self-care (01) ==
PROVIDERS: PCP Internal Medicine; Visit Provider Physician Assistant
DX: K21.9 Gastro-esophageal reflux disease without esophagitis (principal); R13.10 Dysphagia, unspecified; Z86.010 Personal history of colon polyps; E11.9 Type 2 diabetes mellitus without complications
CPT/HCPCS: 99214

== ENCOUNTER → 2023-07-13 09:05 | Outpatient (BNVA) | payer OTHER, SELFPAY | PROVIDERS: PCP Internal Medicine; Visit Provider Physician Assistant | DX: K21.9 Gastro-esophageal reflux disease without esophagitis (principal); R13.10 Dysphagia, unspecified; E11.9 Type 2 diabetes mellitus without complications; Z86.010 Personal history of colon polyps; Z79.899 Other long term (current) drug therapy | CPT/HCPCS: 99212 ==

== ENCOUNTER 2023-07-20 12:56 | Outpatient (AMB) | payer OTHER, SELFPAY ==
[2023-07-20 12:57] VITALS: BP 160/80; PULSE 85; TEMP 36.1; O2SAT 97; BMI 34.0
--- NOTE | 2023-07-20 12:57 | MHC.OFFWIV ---
Intake Vital Signs 07/20/23 12:57 Height 5 ft 7 in Weight 217 lb BMI 34.0 BP 160/80 H Blood Pressure Location Lt brachial Position Sitting Pulse 85 Pulse Source Pulse Oximeter Temp 97.0 F Temp Source Temporal Artery Scan Pulse Oximetry (%) 97 Oxygen Delivery Method Room Air Intake Visit Reasons: EP painful ball in belly Intake Note: pt is here today for painful ball in belly started 2 weeks ago Patient Tobacco Use Status: Never used Tobacco Allergies iodine [Iodine] Allergy (Severe, Verified 07/20/23 13:03) THROAT SWELLING lisinopril Allergy (Severe, Verified 07/20/23 13:03) Rash metformin Allergy (Severe, Verified 07/20/23 13:03) diarrhea meperidine [From Demerol] Allergy (Mild, Verified 07/20/23 13:03) RASH oxycodone [From Percocet] Adverse Reaction (Mild, Verified 07/20/23 13:03) MOUTH DRYNESS,RASH Mercury Detox Allergy (Severe, Uncoded 07/13/23 09:12) Close Throat Shellfish Allergy (Severe, Uncoded 07/13/23 09:12) THROAT SWELLING Do you need a note to return to daycare/school/sports/work: Yes HPI HPI Comments History of Present Illness Details 58-year-old male presents today complaining of an abdominal mass on the right side of his abdomen. He states he had abdominal ventral hernia that while doing sit-ups shifted to the right and now shows asymmetry when standing in the right anterior upper and lower quadrants. He says it is tender and keeps him awake at night. He is currently on pain meds for this but it is not controlling his discomfort. He went to the ER that ordered blood work but did not do any imaging ON LICENSE OF [facility] Medical History Diabetes Hx of fracture of fibula GERD without esophagitis Asthma-COPD overlap syndrome Diastasis recti Laryngospasm JOSÉ (obstructive sleep apnea) Bursitis Low back pain Claustrophobia GERD (gastroesophageal reflux disease) Hemoptysis Anxiety Insomnia Migraine Pure hypercholesterolemia Benign essential hypertension Type 2 diabetes mellitus with hyperglycemia, without long-term current use of insulin Stasis edema of both lower extremities Lumbar degenerative disc disease Obesity (BMI 30-39.9) Chronic rhinitis Hiatal hernia Erectile dysfunction Asthma Surgical History History of endoscopy Hx of colonoscopy Hx of cardiac catheterization History of nasal surgery History of carpal tunnel surgery Family History Father No problems noted. Mother Chronic kidney disease (CKD) Heart attack Other Mental health problem Social History Household Members: Spouse and Children Household Members Other:: , kids Housing: House Alcohol intake: never Patient Tobacco Use Status: Never used Tobacco e-Cigarette/Vaping Use: Never Used Second Hand Smoke Exposure: Yes (employees smoked atwork) service: No Current occupational status: disabled Cognitive needs: No Hearing needs: No Vision needs: No Review of Systems Const All systems reviewed & are unremarkable except as noted in HPI and below Eyes Reports no additional complaints ENT Reports no additional complaints Card Reports no additional complaints Resp Reports no additional complaints GI Reports abdominal pain (Right-sided pain and palpable mass) Reports no additional complaints Physical Exam Vital Signs: Last Vital Signs Temp 97.0 F 07/20/23 12:57 Pulse 85 07/20/23 12:57 BP 160/80 H 07/20/23 12:57 Pulse Ox 97 07/20/23 12:57 Oxygen Delivery Method Room Air 07/20/23 12:57 BMI result Body Mass Index 34.0 Const General: acute distress mild HEENT Head: Yes normal to inspection, Yes normocephalic and Yes atraumatic Ears: hearing grossly normal bilaterally General nose exam: Normal external nose present Resp Effort & Inspection: normal respiratory effort Auscultation: clear to auscultation bilaterally Cardio Rate: regular rate Rhythm: regular rhythm GI Inspection: Yes distended and Yes other (Upper and lower quadrants the right abdomen asymmetric upon observation) Palpation (GI): Tenderness to palpation present (GI) in the RUQ and Hernia present ventral Auscultation: normal bowel sounds Assessment & Plan Assessment & Plan (1) Abdominal mass, right upper quadrant: Code(s): R19.01 - Right upper quadrant abdominal swelling, mass and lump Plan: We will contact his PCP to recommend imaging of his abdomen. Plan See plan Coding Level of Care Code Est Pt Level 3 (37926) Diagnoses Abdominal mass, right upper quadrant R19.01
== END 2023-07-20 14:07 | disposition home or self-care (01) ==
PROVIDERS: PCP Internal Medicine; Visit Provider Physician Assistant Medical
DX: R19.01 Right upper quadrant abdominal swelling, mass and lump (principal)
CPT/HCPCS: 99213

== ENCOUNTER 2023-08-03 14:50 | Outpatient (AMB) | payer OTHER, SELFPAY ==
--- NOTE | 2023-08-03 15:04 | A.OFFVIS_ITS ---
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 Allergies iodine [Iodine] Allergy (Severe, Verified 08/03/23 15:05) THROAT SWELLING lisinopril Allergy (Severe, Verified 08/03/23 15:05) Rash metformin Allergy (Severe, Verified 08/03/23 15:05) diarrhea meperidine [From Demerol] Allergy (Mild, Verified 08/03/23 15:05) RASH oxycodone [From Percocet] Adverse Reaction (Mild, Verified 08/03/23 15:05) MOUTH DRYNESS,RASH Mercury Detox Allergy (Severe, Uncoded 08/03/23 15:05) Close Throat Shellfish Allergy (Severe, Uncoded 08/03/23 15:05) THROAT SWELLING HPI Comments Details: The patient is a 58-year-old gentleman with history of reflux disease, hiatal hernia and uncontrolled asthma. He has had multiple exacerbations required prednisone. At least twice in the last month. He has had x-rays demonstrating no acute disease although he still having worsening respiratory symptoms specially at nighttime. He did have a CBC which is unremarkable. He has also had allergy testing in the past and he is allergic to multiple things. He has been taking antihistamines and leukotriene inhibitors without any significant improvement in his symptoms. Dealing the have some is prednisone. He also describes a chronic bronchitis with mucus production every night and congestion in the chest area. He does know about the reflux and continues try reflux diet. He does have a specialist for this. We talked about the importance of reflux therapy and also sleeping elevated to minimize micro aspirations into the lungs. Patient also has a hard time sleeping. He wakes up multiple times with shortness of breath. He also wakes up tired with headaches. His [place] score is elevated 10/24. The patient has never had a sleep study. He will have to get a sleep study at this time. 04/26/2022 the patient is here for pulmonary follow-up visit. He is still struggling with CPAP. Still getting a very dry mouth. He is using a nasal mask. I was able to provide him with a F20 fullface mask large. Explained to him that at this point he needs to use a fullface mask to minimize the dryness of the mouth due to opening of his mouth. He did not have a chinstrap available. I am hopeful that with a fullface mask will be able to tolerated better. I did download the data from the machine. It shows how much effort he but seem to trying to use the CPAP. He puts it on takes it off at least 10 times a night. This med is very cumbersome for him. And he does want feel better. So therefore the fullface mask was provided for him. Will reassess him in 2 months with hopes that he tolerating it better and if anything he can alwa ys bring the machine and or again download the data to be able to adjusted further. Patient continues to have dyspnea on exertion. With minimal activity he gets very short of breath. Moderate severity. He uses his rescue inhaler and also has had to use prednisone. We did review his last pulmonary function studies demonstrating obstructive lung disease consistent with asthma COPD overlap syndrome. Will go ahead and refer the patient to rehab in order to increase his exercise capacity and hopefully improve his symptoms. The patient also complains of chronic bronchitis with chest congestion. Will also try as short course of azithromycin to see if we can improve his symptoms. 06/20/2022 the patient is here for a pulmonary follow-up visit. He continues complaint of dyspnea on exertion. Moderate severity. He did undergo pulmonary function studies. He does have a moderate obstruction consistent with asthma COPD overlap syndrome. The patient is already medically maximized on Trelegy inhaler. He still requires his nebulizer a couple times a day. Is very winded with activity. Will go ahead and request Daliresp to see if they can help decrease exacerbations. In the meantime we can also do allergy testing to see if this an allergic component that can be treated. He does respond to prednisone he does takes it once in a while when his breathing is acting up. The patient currently is using a full face months with the CPAP. However, he did get a nasal mask. I did call his [employer] company to see if they can swab his mask for an F20. He still struggling with the CPAP. He wakes up multiple times. He is using a sleep aid. Still, the CPAP therapy continues to be affecting beneficial. He does try to use it for the required time. Based on his pulmonary function studies in his shortness of breath he will be also good candidate for pulmonary rehabilitation. Will request rehab at this time. 09/19/2022 the patient is here for a pulmonary follow-up visit. He has been having worsening respiratory symptoms with worsening cough chest tightness and wheezing. He has been using his nebulizer and his rescue medicine every treated for hours. He is also waking up coughing. He has been getting worse in the last few weeks. He continues uses respiratory therapy with only partial improvement. He did have blood work done no evidence of any eosinophilia or significant allergies to consider biologics. He tried and failed Daliresp. Will go ahead and start him on azithromycin 3 times a week. At this point he is going to need some prednisone. Will monitor closely his sugars. He is also using the CPAP. CPAP therapy continues to be affecting beneficial. He is getting used to it. With increased cough is been hard for him to tolerated. But he does from find that is very helpful. Therefore he will continue to use especially once he starts feeling better. 11/25/2022 the patient is here for a pulmonary follow-up visit. The patient has been having difficulties with his asthma. Complaining of chest tightness and wheezing. Moderate severity. He has been using his rescue inhaler multiple times a day. He continues using the Trelegy inhaler and also his allergy medicines. At this point his asthma as uncontrolled with frequent exacerbations. Therefore we will request additional blood work and allergy testing to see if he is a candidate for biologics. In the meantime he continues uses CPAP machine. CPAP therapy continues to be affecting beneficial. Is not clear if he is getting the right mask from his DME company. Should be getting the F20 mask. Well was resubmit a prescription for supplies for him. We did call the DME and they did state that he got the right mask. At this point will provide him with a sample mask in the meantime. He will continue to work with the DME to make sure that his getting proper supplies. The CPAP therapy again continues to be affecting beneficial he does use it for more than 4 hours a night. 08/03/2023 the patient is here for a pulmonary follow-up visit. Overall the patient has been doing well from a respiratory status. Has been responding well to the Trelegy inhaler. He has no longer using Daliresp. He continues uses singular. In addition to that has not had any asthma flare-ups which is reassuring. The patient has been complaining of abdominal discomfort. He had an injury or trauma to his abdominal muscles and afterwards ended up with a lump in the abdomen. He went to the ER and was recommended he follow-up with his primary care doctor. I do believe he has a CT scan coming up in the next few weeks. In the meantime he is struggling with the CPAP. The mask was causing him to have ulcerations of the nasal bridge. Otherwise he has been using the oxygen for sleep. I did recommend he go back to the CPAP. I did have an F30 mask available that he can use. The patient should continue to use CPAP every night. I will try to send supplies if he does tolerate the F30 mask to the [employer] in order for him to stay active with his usage and also with new supplies. [facility] Medical History Diabetes Hx of fracture of fibula GERD without esophagitis Asthma-COPD overlap syndrome Diastasis recti Laryngospasm JOSÉ (obstructive sleep apnea) Bursitis Low back pain Claustrophobia GERD (gastroesophageal reflux disease) Hemoptysis Anxiety Insomnia Migraine Pure hypercholesterolemia Benign essential hypertension Type 2 diabetes mellitus with hyperglycemia, without long-term current use of insulin Stasis edema of both lower extremities Lumbar degenerative disc disease Obesity (BMI 30-39.9) Chronic rhinitis Hiatal hernia Erectile dysfunction Asthma Surgical History History of endoscopy Hx of colonoscopy Hx of cardiac catheterization History of nasal surgery History of carpal tunnel surgery Family History Father No problems noted. Mother Chronic kidney disease (CKD) Heart attack Other Mental health problem Social History Household Members: Spouse and Children Household Members Other:: , kids Housing: House Alcohol intake: never Patient Tobacco Use Status: Never used Tobacco e-Cigarette/Vaping Use: Never Used Second Hand Smoke Exposure: Yes (employees smoked atwork) service: No Current occupational status: disabled Cognitive needs: No Hearing needs: No Vision needs: No Review of Systems Const Denies chills, Reports difficulty sleeping, Reports fatigue, Denies fever(s) and Reports headache(s) (on and off) ENT Denies dysphagia, Reports dizziness (occasional), Denies otalgia, Reports headache(s) (on and off), Denies odynophagia, Denies sinus pain and Denies sore throat Card Denies palpitations and Reports dyspnea on exertion (mild) Resp Reports cough, Reports dyspnea on exertion (mild) and Denies wheezing GI Denies constipation, Denies dysphagia, Reports dyspepsia, Reports heartburn, Denies diarrhea, Denies nausea, Denies odynophagia and Denies vomiting Reports erectile dysfunction (unable to tolerate Rx), Denies dysuria and Denies nocturia Musc Reports back pain (chronic - over the lower back), Reports arthralgias (left hip; increased pain and swelling over right wrist lately), Denies joint swelling and Reports tingling (on and off, in both hands and feet) Neuro Reports dizziness (occasional), Reports headache(s) (on and off) and Reports tingling (on and off, in both hands and feet) Psych Reports anxiety Endo Reports fatigue and Denies palpitations Aller/Immun Denies wheezing Physical Exam Vital Signs: Last Vital Signs Pulse 90 08/03/23 15:05 Pulse Ox 97 08/03/23 15:05 Oxygen Delivery Method Room Air 08/03/23 15:05 BMI result Body Mass Index 35.2 Const General: cooperative, healthy appearing and comfortable Orientation/consciousness: patient oriented x3 Limitations: no limitations HEENT Head: Yes normocephalic Neck Neck: Yes normal visual inspection and Yes full ROM Chest Chest palpation & inspection: normal inspection of the chest Resp Effort & Inspection: normal respiratory effort and able to speak in complete sentences Auscultation: diminished lung sounds Cardio Rate: regular rate Rhythm: regular rhythm Heart sounds: normal S1 and S2 GI Palpation (GI): Soft to palpation Skin General skin exam: no rashes or lesions noted Neuro General: patient oriented x3 Extrem General: Yes no clubbing, cyanosis or edema Assessment & Plan Assessment & Plan (1) Asthma-COPD overlap syndrome: Code(s): J44.9 - Chronic obstructive pulmonary disease, unspecified Category: Medical (2) Hiatal hernia: Code(s): K44.9 - Diaphragmatic hernia without obstruction or gangrene Category: Medical (3) JOSÉ (obstructive sleep apnea): Comment: JOSÉ CPAP Code(s): G47.33 - Obstructive sleep apnea (adult) (pediatric) Category: Medical Plan continue Trelegy 200mg DARÍO as needed Bloodwork and allergy testing continue Singulair stop Daliresp maybe a good candidate for Biologic therapy for his uncontrolled asthma stopped CPAP, Requesting F30 mask ?small or mediumv F/U 6 months Coding Level of Care Code Est Pt Level 4 (45013) Diagnoses Asthma-COPD overlap syndrome J44.9 Hiatal hernia K44.9 JOSÉ (obstructive sleep apnea) G47.33 Time Spent (min) 17
[2023-08-03 15:05] VITALS: PULSE 90; O2SAT 97; BMI 35.2
== END 2023-08-03 16:18 | disposition home or self-care (01) ==
PROVIDERS: PCP Internal Medicine; Visit Provider Hospitalist
DX: J44.9 Chronic obstructive pulmonary disease, unspecified (principal); K44.9 Diaphragmatic hernia without obstruction or gangrene; G47.33 Obstructive sleep apnea (adult) (pediatric)
CPT/HCPCS: 99214

== ENCOUNTER → 2023-08-03 14:50 | Outpatient (BNVA) | payer OTHER, SELFPAY | PROVIDERS: PCP Internal Medicine; Visit Provider Hospitalist | DX: J44.9 Chronic obstructive pulmonary disease, unspecified (principal); G47.33 Obstructive sleep apnea (adult) (pediatric); K44.9 Diaphragmatic hernia without obstruction or gangrene | CPT/HCPCS: 99212 ==

== ENCOUNTER 2023-08-07 08:44 | Outpatient (AMB) | payer OTHER, SELFPAY ==
--- NOTE | 2023-08-07 08:50 | A.OFFVIS_ITS ---
Vital Signs 08/07/23 08:53 Height 5 ft 7 in Weight 217 lb 6.012 oz BMI 34.0 BP 150/92 H Blood Pressure Location Rt brachial Position Sitting Pulse 92 Pulse Source Pulse Oximeter Intake Visit Reasons: Type 2 DM Intake Note: Patient present today to follow up on Type 2 Diabetes Mellitus. Last seen by Dr. Guerrier on 04/17/2023. Last Diabetic Eye exam: Over 1 year ago Last Podiatry Visit: approx 3 months ago Random Glucose: 173 mg/dl HgA1C: 6.2% 06/06/2023 Irrigation Equipment Remover Required: No Accompanied by: Self / Same As Patient Allergies iodine [Iodine] Allergy (Severe, Verified 08/07/23 08:55) THROAT SWELLING lisinopril Allergy (Severe, Verified 08/07/23 08:55) Rash metformin Allergy (Severe, Verified 08/07/23 08:55) diarrhea meperidine [From Demerol] Allergy (Mild, Verified 08/07/23 08:55) RASH oxycodone [From Percocet] Adverse Reaction (Mild, Verified 08/07/23 08:55) MOUTH DRYNESS,RASH Mercury Detox Allergy (Severe, Uncoded 08/07/23 08:55) Close Throat Shellfish Allergy (Severe, Uncoded 08/07/23 08:55) THROAT SWELLING Medication List - Last Reconciled 08/07/23 by Rae Oconnor PA-C albuterol sulfate 2.5 mg (3 mL) continuous nebulization QID PRN 30 days albuterol sulfate 90 mcg/actuation (Ventolin HFA) 2 puffs PO QID PRN 90 days alcohol swabs (BD Alcohol Swabs) 1 pad topical TID amlodipine 10 mg PO DAILY aspirin 81 mg PO DAILY azelastine 2 sprays intranasal BID 30 days azithromycin 250 mg PO 3XW blood pressure monitor (Blood Pressure Kit) Take BP up to once daily and keep a log blood sugar diagnostic (FreeStyle Lite Strips) As directed tests 5 X/day blood-glucose meter (FreeStyle Lite Meter kit) As directed- To test blood sugar three times a day blood-glucose sensor (FreeStyle Lola 3 Sensor device) Apply every 14 days As directed budesonide 0.5 mg (2 mL) inhalation BID 30 days cephalexin 500 mg PO Q6H 7 days cholecalciferol (vitamin D3) 75 mcg PO .Q2days clotrimazole-betamethasone 1-0.05 % 1 appl topical BID PRN [COMPRESSION STOCKINGS (medium compression - 20 to 30 mm); Knee high As directed ] CPAP (CPAP Machine/Device) As directed cyclobenzaprine 10 mg PO BEDTIME PRN [DIABETIC SHOES with INSERTS As directed] diphenhydramine HCl (Benadryl) 25 mg PO TID PRN dulaglutide (Trulicity) 3 mg (0.5 mL) subcut QWEEK epinephrine (EpiPen 2-Dread) 0.3 mg (0.3 mL) IM Q4H PRN ezetimibe (Zetia) 10 mg PO DAILY dufbgxonktk-nhpbfpjzo-iryprmsc 200-62.5-25 mcg (Trelegy Ellipta) 1 inh inhalation DAILY 30 days gabapentin 1 capsule BID and 2 capsules at bedtime orally -(4 capsules a day in total) 28 days glipizide ER 5 mg PO DAILY [HIP BRACE (left hip) As directed] hydralazine 100 mg PO TID 90 days hydrochlorothiazide 25 mg PO DAILY insulin glargine (Lantus Solostar U-100 Insulin) 10 units (0.1 mL) subcut QPM ipratropium-albuterol 0.5 mg-3 mg(2.5 mg base)/3 mL 3 mL inhalation Q6H PRN lancets (FreeStyle Lancets) 28 gauge topical TID lancets (FreeStyle Lancets) As directed 4 X/day latanoprost 0.005% 1 drp ophthalmic (eye) DAILY lorazepam 1 to 2 tablets orally twice a day as needed; PRN; 30 days melatonin 10 mg (2 x 5 mg) PO BEDTIME montelukast 10 mg PO QPM mupirocin 2% 1 appl topical TID PRN 10 days nebulizer accessories tubing, mask, nebulizer cup, mouth piece nebulizers As directed olmesartan 40 mg PO DAILY omeprazole 40 mg PO DAILY pen needle, diabetic (BD Ultra-Fine Mini Pen Needle) As directed 1x daily. [PULSE OXIMETER As directed] sildenafil 50 mg PO DAILY PRN tamsulosin 0.4 mg PO DAILY 90 days [THERMOMETER As directed] zolpidem 10 mg PO BEDTIME PRN 30 days HPI HPI Type 2 DM: Details: Patient is a 58-year-old male with a significant past medical history type 2 diabetes, insulin dependent, hyperlipidemia, hypertension, ED, asthma, JOSÉ on CPAP, chronic KOWALSKI, obesity who presents today for diabetic management/follow-up Endo: HgbA1c was at 6.2%. He monitors blood sugars with a freestyle machine but wants a CGM. Medications: He remains on glipizide 5 mg daily, Lantus 10 units nightly and Trulicity 3 mg once a week. He last saw Dr. Guerrier in March and was told that he is now well managed and could continue follow-up with PCP but felt that he still wanted to be managed by endocrinology. He does report that at times he feels hypoglycemic. The lowest his blood sugar has been has been 75. He states that this happens a few times a week where he feels a little shaky. It is usually when his blood sugar is about 75-110. He states that he was diagnosed with diabetes about 3 years ago and he ultimately wants to come off of insulin. He feels that it increases his appetite. He wants to lose weight as he is exercising and no longer eating processed foods. -follows with Podiatry every 6 months and was last seen 3 months ago -overdue eye exam and states he will book this -no microalbuminuria noted on last urine in May CV: Bp today is 150/92. He is on olmesartan 40 mg, amlodipine 10 mg, hydrochlorothiazide 25 mg, hydralazine 100 mg t.i.d.. He was discontinued on metoprolol due to asthma. Denies any current chest pain or palpitations. Last lipids were slightly elevated above goal. He has been working on diet changes and states that he has been off of the atorvastatin 80 mg and Zetia 10 mg for months. This is being managed by his PCP. -He thinks his bp is a little elevated today because he hasn't been using his cpap because he was not tolerating the face mask. This was changed and he got new equipment yesterday but did not start it yet. Plans to start tonight. He states at home they fluctuate but are overall normal. He is drinking 8 cups of a coffee/espresso.. [facility] Medical History (Updated 08/07/23 @ 09:42 by Rae Oconnor, PA-C) Onychomycosis Diabetes Hx of fracture of fibula GERD without esophagitis Asthma-COPD overlap syndrome Diastasis recti Laryngospasm JOSÉ (obstructive sleep apnea) Bursitis Low back pain Claustrophobia GERD (gastroesophageal reflux disease) Hemoptysis Anxiety Insomnia Migraine Pure hypercholesterolemia Benign essential hypertension Type 2 diabetes mellitus with hyperglycemia, without long-term current use of insulin Stasis edema of both lower extremities Lumbar degenerative disc disease Obesity (BMI 30-39.9) Chronic rhinitis Hiatal hernia Erectile dysfunction Asthma Surgical History History of endoscopy Hx of colonoscopy Hx of cardiac catheterization History of nasal surgery History of carpal tunnel surgery Family History Father No problems noted. Mother Chronic kidney disease (CKD) Heart attack Other Mental health problem Social History Household Members: Spouse and Children Household Members Other:: , kids Housing: House Alcohol intake: never Patient Tobacco Use Status: Never used Tobacco e-Cigarette/Vaping Use: Never Used Second Hand Smoke Exposure: Yes (employees smoked atwork) service: No Current occupational status: disabled Cognitive needs: No Hearing needs: No Vision needs: No Physical Exam Vital Signs: BMI result Body Mass Index 34.0 Const Orientation/consciousness: patient oriented x3 Neck Thyroid: Thyroid normal Lymphatic: no lymphadenopathy noted Resp Auscultation: clear to auscultation bilaterally Cardio Rate: regular rate Rhythm: regular rhythm Heart sounds: S1 normal heart sound present and S2 normal heart sound present Skin General skin exam: no rashes or lesions noted Neuro General: patient oriented x3, gait normal and no focal motor deficits Extrem Other: DP pulses 2+ bilaterally. Normal capillary refill. Sensation intact. Thickened, yellowish toenails noted. Results Reviewed Results Reviewed: Laboratory Tests 06/06/23 07/12/23 12:44 04:57 WBC 8.3 RBC 5.10 Hgb 15.0 Hct 45.2 Plt Count 290 Sodium 140 Potassium 4.1 Chloride 108 Carbon Dioxide 24 Anion Gap 12 BUN 18 H Creatinine 1.09 Estim Creat Clear Calc 81.3 Estimated GFR > 60 Random Glucose 107 Hemoglobin A1c % 6.2 H Calcium 9.4 Total Bilirubin 0.5 AST 17 ALT 25 Alkaline Phosphatase 55 Total Protein 6.7 Albumin 4.0 Triglycerides 101 Cholesterol 143 LDL Cholesterol, Calc 91 HDL Cholesterol 32 L 25-OH Vitamin D Total 25.0 L TSH 1.47 Urine Creatinine 146.62 Urine Microalbumin 5.0 Microalb/Creat Ratio 3.4 Assessment & Plan Assessment & Plan (1) Diabetes mellitus type 2, insulin dependent: Code(s): E11.9 - Type 2 diabetes mellitus without complications; Z79.4 - jail (current) use of insulin Category: Medical Plan: Discontinue glipizide. Freestyle Lola ordered. Advised patient to follow-up with agricultural extension educator. We discussed how to use the CGM. Advised to follow-up in 3 months. Complete labs prior to appointment. (2) Hypertension: Code(s): I10 - Essential (primary) hypertension Category: Medical Qualifiers: Hypertension type: primary hypertension Qualified Code(s): I10 - Essential (primary) hypertension Plan: BP elevated above goal today. Has an appointment with his PCP next month. Discussed the importance of treating his sleep apnea and that this could be contributing to his elevated blood pressures. (3) Pure hypercholesterolemia: Code(s): E78.00 - Pure hypercholesterolemia, unspecified Category: Medical Plan: Currently off of statin therapy. Lipids have been ordered by PCP. He will repeat this prior to following back up. (4) Onychomycosis: Code(s): B35.1 - Tinea unguium Category: Medical Plan: Will start Penlac solution. States that he has tried clotrimazole, apple cider vinegar soaks and has been following with Podiatry without improvement. Plan Patient understands and agrees the plan Orders: Orders Comprehensive Sherman. Panel Fast Today E11.9 - Type 2 diabetes mellitus without complications, E78.00 - Pure hypercholesterolemia, unspecified, I10 - Essential (primary) hypertension, Z79.4 - jail (current) use of insulin Hemoglobin A1c Today E11.9 - Type 2 diabetes mellitus without complications, E78.00 - Pure hypercholesterolemia, unspecified, I10 - Essential (primary) hypertension, Z79.4 - terminal press operator (current) use of insulin Referrals Diabetes Education Referral E11.9 - Type 2 diabetes mellitus without complications, Z79.4 - terminal press operator (current) use of insulin Medications: New blood-glucose sensor (FreeStyle Lola 3 Sensor device) Apply every 14 days As directed 1 ea 11RF E11.9 - Type 2 diabetes mellitus without complications, Z79.4 - terminal press operator (current) use of insulin ciclopirox 8% 1 appl topical DAILY 4 weeks 6.6 mL 5RF Coding Level of Care Code Est Pt Level 4 (90900) Complex EM visit Add On G2211 Diagnoses Diabetes mellitus type 2, insulin dependent E11.9; Z79.4 Primary hypertension I10 Hypertension type: primary hypertension Pure hypercholesterolemia E78.00 Onychomycosis B35.1
[2023-08-07 08:53] VITALS: BP 150/92; PULSE 92; BMI 34.0
[2023-08-07 09:07] LABS: Glucose, Whole Blood 173 mg/dL (60-115)
== END 2023-08-07 09:35 | disposition home or self-care (01) ==
PROVIDERS: PCP Internal Medicine; Visit Provider Physician Assistant
DX: E11.9 Type 2 diabetes mellitus without complications (principal); Z79.4 Long term (current) use of insulin; I10 Essential (primary) hypertension; E78.00 Pure hypercholesterolemia, unspecified; B35.1 Tinea unguium
CPT/HCPCS: 99214; G2211

== ENCOUNTER → 2023-08-07 08:44 | Outpatient (BNVA) | payer OTHER, SELFPAY | PROVIDERS: PCP Internal Medicine; Visit Provider Physician Assistant | DX: E11.9 Type 2 diabetes mellitus without complications (principal); I10 Essential (primary) hypertension; E78.00 Pure hypercholesterolemia, unspecified; Z79.4 Long term (current) use of insulin; B35.1 Tinea unguium | CPT/HCPCS: 82947; 99212 ==

== ENCOUNTER 2023-08-25 15:07 | Outpatient (REF) | payer OTHER, SELFPAY ==
--- NOTE | ~2023-08-25 | CT_ITS ---
EXAMINATION: CT ABDOMEN WITHOUT CONTRAST CLINICAL INFORMATION: Lump in the right upper quadrant, abdominal swelling COMPARISON: CT abdomen from 12/07/2013 TECHNIQUE: Contiguous axial thin section helical images of the abdomen were performed without contrast. The data set was reformatted in the coronal and sagittal planes and reviewed on an independent workstation. Oral contrast administrated. This CT examination was performed using dose optimization techniques as appropriate, variously including the following: *Automated exposure control *Adjustment of mA and/or kV according to patient size (this includes techniques or standardized protocols for targeted exams where dose is matched to indication/reason for exam; i.e. extremities or head) *Use of iterative reconstruction technique DLP: 362 mGy-cm FINDINGS: LUNG BASES: Lung bases are clear. LIVER, GALLBLADDER, BILIARY TREE: Liver is homogeneous without intrahepatic masses or ductal dilatation. Gallbladder is unremarkable without evidence of cholelithiasis. There is no CBD dilatation. PANCREAS: Pancreas is normal without evidence of pancreatitis or pancreatic masses. SPLEEN: There is no splenic mass ADRENAL GLANDS AND KIDNEYS: There is no nodularity in the adrenal glands. Kidneys demonstrate no hydroureteronephrosis, nephrolithiasis, masses. BOWEL LOOPS: There is no bowel dilatation, no obvious masses. Stomach is well distended by oral contrast. ABDOMINAL WALL: No evidence of abdominal wall herniations or masses specifically no abnormal findings in the right upper quadrant is small fat-containing umbilical hernia. LYMPH NODES: There is no mesenteric or retroperitoneal lymphadenopathy. VASCULAR: There is no abdominal aortic aneurysmal dilatation. BONES: Extensive degenerative changes at L4-L5. Disc space narrowing and subchondral sclerosis with grade 1 anterior listhesis of L4 over L5 and pars defect bilaterally CT/CT abdomen wo IV con IMPRESSION: 1. Small fat-containing umbilical hernia. 2. Grade 1 anterolisthesis of L4 over L5 with bilateral pars defect. Degenerative change Fleischner guidelines were followed.
[2023-08-25] MEDS: Barium Sulfate Oral (Mocha) 450 ML ORAL.SUSP PO (16:04)
== END 2023-08-25 15:08 | disposition home or self-care (01) ==
LOC: HO.CT 15:07
PROVIDERS: Visit Provider Internal Medicine
DX: R19.01 Right upper quadrant abdominal swelling, mass and lump (principal)
CPT/HCPCS: 74150

== ENCOUNTER 2023-08-28 11:15 | Outpatient (AMB) | payer OTHER, SELFPAY ==
--- NOTE | 2023-08-28 12:03 | A.OFFVIS_ITS ---
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: No Accompanied by: Self / Same As Patient Allergies iodine [Iodine] Allergy (Severe, Verified 08/07/23 08:55) THROAT SWELLING lisinopril Allergy (Severe, Verified 08/07/23 08:55) Rash metformin Allergy (Severe, Verified 08/07/23 08:55) diarrhea meperidine [From Demerol] Allergy (Mild, Verified 08/07/23 08:55) RASH oxycodone [From Percocet] Adverse Reaction (Mild, Verified 08/07/23 08:55) MOUTH DRYNESS,RASH Mercury Detox Allergy (Severe, Uncoded 08/07/23 08:55) Close Throat Shellfish Allergy (Severe, Uncoded 08/07/23 08:55) THROAT SWELLING HPI Comprehensive Diabetes Asmnt Most Recent Diabetes Results: Microalb/Creat Ratio 3.4 ug/mg cr (<30) 06/06/23 Cholesterol 143 mg/dL (<200) 06/06/23 HDL Cholesterol 32 mg/dL (>40) L 06/06/23 Triglycerides 101 mg/dL (<150) 06/06/23 Creatinine 1.09 mg/dL (0.5-1.4) 07/12/23 Blood Urea Nitrogen 18 mg/dL (9-16) H 07/12/23 Sodium 140 mmol/L (135-145) 07/12/23 Potassium 4.1 mmol/L (3.3-5.1) 07/12/23 Chloride 108 mmol/L (96-108) 07/12/23 Carbon Dioxide 24 mmol/L (22-29) 07/12/23 Calcium 9.4 mg/dL (8.4-10.2) 07/12/23 AST 17 U/L (5-37) 07/12/23 ALT 25 U/L (0-40) 07/12/23 Total Protein 6.7 g/dL (6.5-8.0) 07/12/23 Albumin 4.0 g/dL (3.5-5.0) 07/12/23 [facility] Medical History (Updated 08/07/23 @ 09:42 by Rae Oconnor PA-C) Onychomycosis Diabetes Hx of fracture of fibula GERD without esophagitis Asthma-COPD overlap syndrome Diastasis recti Laryngospasm JOSÉ (obstructive sleep apnea) Bursitis Low back pain Claustrophobia GERD (gastroesophageal reflux disease) Hemoptysis Anxiety Insomnia Migraine Pure hypercholesterolemia Benign essential hypertension Type 2 diabetes mellitus with hyperglycemia, without long-term current use of insulin Stasis edema of both lower extremities Lumbar degenerative disc disease Obesity (BMI 30-39.9) Chronic rhinitis Hiatal hernia Erectile dysfunction Asthma Surgical History History of endoscopy Hx of colonoscopy Hx of cardiac catheterization History of nasal surgery History of carpal tunnel surgery Family History Father No problems noted. Mother Chronic kidney disease (CKD) Heart attack Other Mental health problem Social History Household Members: Spouse and Children Household Members Other:: , kids Housing: House Alcohol intake: never Patient Tobacco Use Status: Never used Tobacco e-Cigarette/Vaping Use: Never Used Second Hand Smoke Exposure: Yes (employees smoked atwork) service: No Current occupational status: disabled Cognitive needs: No Hearing needs: No Vision needs: No Assessment & Plan Assessment & Plan (1) Diabetes: Comment: Reviewed medications Code(s): E11.9 - Type 2 diabetes mellitus without complications Plan: Patient at visit to set up an insert Lola 3 sensor Instructed patient sensors water proof you can shower, or swim do not submerge sensor in water for over 30 minutes Is sensor falls off cannot put back in you need to replace sensor, customer service number given to patient for sensor replacement Sensor placed on the back of right arm Patient left visit with sensor in warmup Reviewed how to interpret trend arrows Reminded patient that to check finger sticks if symptoms do not match sensor reading. Discussed lag time between finger stick and sensor data.? Instructed patient she should always keep blood glucometer for backup testing if needed Reviewed delay of CGM from fingersticks Reminded pt that if symptoms do not match sensor still needs to check fingers ticks. Message sent to provider to update Lola 3 prescription, so he can get to sensors a month. Patient also asked about changing Trulicity to different injectable medication, as provider to clarify medication change if necessary Portions of this note were created using voice recognition software, please excuse any words or phrases that may have been misinterpreted. Patient Instructions: Patient instruction: CGM provides information on blood glucose control throughout the day, including hyperglycemia and hypoglycemia. ? Continue to monitor blood glucose as instructed. Follow nutrition guidelines provided. Report any discomfort promptly to health care provider. ?Stay well-hydrated. You can bathe ,shower, swim and exercise while wearing the glucose sensor. Do not submerge glucose sensor in water for more than 30 minutes. Coding Level of Care Code Est Pt Level 1 (95641) Diagnoses Diabetes E11.9
== END 2023-08-28 12:05 | disposition home or self-care (01) ==
PROVIDERS: PCP Internal Medicine; Visit Provider Registered Nurse Diabetes Educator
DX: E11.9 Type 2 diabetes mellitus without complications (principal)

== ENCOUNTER → 2023-08-28 11:15 | Outpatient (BNVA) | payer OTHER, SELFPAY | PROVIDERS: PCP Internal Medicine; Visit Provider Registered Nurse Diabetes Educator | DX: E11.9 Type 2 diabetes mellitus without complications (principal) | CPT/HCPCS: 99211 ==

== ENCOUNTER → 2023-09-19 09:51 | Outpatient (RCR) | payer OTHER, SELFPAY ==
--- NOTE | 2021-05-04 12:47 | MHC.SP.ADU ---
Referring provider: Dr. Alexis Oates Reason for Referral: Laryngospasm Type of Treatment: 53104 Behavioral and Qualitative Analysis of Voice and Resonance Date of Plan of Treatment: 05/03/21 Onset of Symptoms/Illness: 12/23/20 Date Treatment Started: 05/03/21 Medical Diagnosis: On bronchoscopy performed on 12/23/20, Mr. Cullen had a significant episode of laryngeal spasms after removal of the scope. The scope indicated abnormal laryngeal findings including a thick narrow epiglottis and focal folds persistently in an adducted state. 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 Mr. Cullen reports that he has had increased episodes of shortness of breath and difficulty breathing since seeing a Chiropractor sometime last year. The Chiropractic treatment included manipulating Mr. Cullen neck and back. This increased difficulty with breathing is most noticeable when Mr. Cullen makes any effort: e.g. climbing stairs, attempting to work out at the gym, walking in cold air even talking at length. 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 Mr. Cullen reports that the greatest difficulty is at night during attempts to sleep. He reports that at times he wakes up choking and gasping for air. Mr. Cullen reports that he has chronic insomnia, that in addition to difficulty w/ breathing, includes frequent need to urinate during the course of the night, and having a dry, uncomfortable mouth. Mr. Cullen reports he is currently taking Ambien and Melatonin to help him sleep, but generally falls asleep then wakes after two hours, followed by disrupted sleep for the rest of the night. He reports that he has seen a urologist, but medical attempts to regulate his bladder have been unsuccessful. He has also been seen for sleep studies, but he was unable to sleep for them. Mr. Cullen additionally has a number of risk factors/potential triggers for laryngospasm including a prior medical history of Asthma, GERD, and anxiety/depression disorders. Medical History: Acid Reflux Asthma Bronchitis Diabetes High Blood Pressure Sinusitis Other: See below Other: Hiatal Hernia, Insomnia, Chronic Rhinitis, Anxiety, Major Depressive Disorder, Migraine, HLD, Obstructive Sleep Apnea Medication List: Please see chart. Recent Hospitalizations: No Respiratory Needs: Room Air Patient Orientation: Alert & Oriented x 4 Social History: Current Living Situation: Mr. Cullen lives with his in a private home. Assistive Devices in use: n/a Past Speech Language Therapy: None. Other Therapies Seen in Current Calendar Year: Unknown Reported Speech, Language, Cognition difficulties: Voice Comments: Mr. Cullen had a documented episode of laryngeal spasm following bronchoscopy. The bronchoscopy revealed vocal folds in persistently adducted stated as well as a thick and narrow epiglottis that may be affecting his airway. Mr. Cullen reports episodes of choking/gasping for air primarily at night, which may be consistent with episodic laryngeal spasm. On vocal assessment today, Mr. Cullen presents with mild signs of vocal abnormality. Mr. Cullen is scheduled to see an ENT for further assessment of pharyngeal and laryngeal function, which may confirm previous findings on bronchoscopy and add further detail to any vocal fold or laryngeal disfunction. Quality of Life: Patient Stated Goal of Speech-Language Therapy: Assess vocal function, determine appropriateness for vocal therapy and goals. Assessment The CAP-V was used to assess vocal function. Informal Voice Assessment: Voice Loudness: Normal Voice Nasal Resonance: Normal Voice Oral Resonance: Normal Voice Phonatory-based Quality: Normal Voice Pitch: Normal Voice Other Observations: Inadequate Breath Support for sustained phonation. Clinicial Observations: On evaluation, Mr. Cullen presents with mildly reduced breath support for phonation, with all other aspects of vocal function WNL.? During today's session, one episode of stridor was noted while Mr. Cullen was speaking.? Although additional episodes of stridor were not noted, he reports that this is quite common during his day.? Mr. Cullen is presents with clear distress regarding the difficulty he has breathing in a number of contexts, however his greatest difficulty is reported to be while sleeping or attempting to sleep.? Mr. Cullen comes to this session today with documentation of a laryngeal spasm s/p bronchoscopy and with abnormal laryngeal/pharyngeal findings on that bronchoscopy.? These findings include visualizing the vocal folds in a persistently adducted state and a thick and narrow epiglottis which may be affecting his airway, per his general distillery worker.? Mr. Cullen is additionally referred to an ENT for further evaluation of laryngeal function.?? Impressions and Recommendations Summary: Impact on Daily Function/Activity Limitations: Moderate Daily Activities: Moderate Interpersonal Interactions: Moderate Community: Moderate Prognosis for Improvement: Fair Comment: Further evaluation by an ENT is needed to determine laryngeal and vocal fold function and how this is contributing to Mr. Cullen breathing difficulties. Mr. Cullen presents mild vocal issues, related to sustained breath support for phonation. Recommendation for Speech Therapy: Mr. Cullen is scheduled to see Dr. Khoa Gray, ENT, later this month for Laryngoscopy.? Mr. Cullen was given a release form to request that results from this evaluation be provided to [facility].? Pending this additional information, recommend holding therapy goals/recommendations.? At the end of the evaluation, Mr. Cullen was given strategies for managing an episode of laryngeal spasm, including use of circular breathing technique, and pressure points behind jaw/earlobe.?? Recommended Referrals to be Discussed with Primary Care Provider: ENT Consult Patient is pending and ENT consult already ordered by Fleet Maintenance Manager. Patient Education: Completed: Yes Patient/Caregiver Education: Described Results of Evaluation Patient expressed understanding of evaluation Patient agrees with goals and treatment plan Comments/Barriers to Learning: None Outboard Motor Assembler Clinican/Clinical Fellow: No Supervisory Statement: N/A Speech Language Pathologist: Susan Casillas M.A., [facility])-SENIOR MEDICAL TRANSCRIPTIONIST
== END | disposition home or self-care (01) ==
LOC: HO.SH 05-03 13:39
PROVIDERS: Visit Provider Hospitalist
DX: J38.5 Laryngeal spasm (principal)
CPT/HCPCS: 92524

== ENCOUNTER 2023-09-20 13:37 | Outpatient (REF) | payer OTHER, SELFPAY ==
--- NOTE | ~2023-09-20 | XR_ITS ---
EXAMINATION: XR SHOULDER, RIGHT CLINICAL INFORMATION: Right shoulder pain. COMPARISON: None available. TECHNIQUE: AP external rotation, Grashey, scapular Y, and axillary views of the right shoulder. FINDINGS: Severe osteoarthritis in the glenohumeral joint with severe joint space narrowing, marginal osteophytes, articular sclerosis, and osseous loose bodies. There is slight caudal subluxation of the humerus relative to the glenoid. Small 3 mm calcific density at the anterior margin of the proximal humeral shaft may correspond to foci of calcific tendinitis at the pectoralis major insertion or loose bodies within the bicipital groove. Mild osteoarthritis of the right acromioclavicular joint. XR/XR shoulder RT min 2V IMPRESSION: 1. Severe osteoarthritis at the right glenohumeral joint. 2. Mild osteoarthritis in the right acromioclavicular joint.
== END 2023-09-20 13:38 | disposition home or self-care (01) ==
LOC: HO.XRAY 13:37
PROVIDERS: PCP Internal Medicine; Visit Provider Internal Medicine
DX: M25.511 Pain in right shoulder (principal)
CPT/HCPCS: 73030

== ENCOUNTER 2023-09-27 09:48 | Outpatient (AMB) | payer OTHER, SELFPAY ==
[2023-09-27 10:07] VITALS: BP 116/68; PULSE 76; O2SAT 98; BMI 34.8
--- NOTE | 2023-09-27 10:07 | MHC.PC.OV ---
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 Allergies iodine [Iodine] Allergy (Severe, Verified 09/27/23 11:05) THROAT SWELLING lisinopril Allergy (Severe, Verified 09/27/23 11:05) Rash metformin Allergy (Severe, Verified 09/27/23 11:05) diarrhea meperidine [From Demerol] Allergy (Mild, Verified 09/27/23 11:05) RASH oxycodone [From Percocet] Adverse Reaction (Mild, Verified 09/27/23 11:05) MOUTH DRYNESS,RASH Mercury Detox Allergy (Severe, Uncoded 09/27/23 11:05) Close Throat Shellfish Allergy (Severe, Uncoded 09/27/23 11:05) THROAT SWELLING Medication List - Last Reconciled 09/27/23 by Oliverio Emerson MD albuterol sulfate 2.5 mg (3 mL) continuous nebulization QID PRN 30 days albuterol sulfate 90 mcg/actuation (Ventolin HFA) 2 puffs PO QID PRN 90 days alcohol swabs (BD Alcohol Swabs) 1 pad topical TID amlodipine 10 mg PO DAILY aspirin 81 mg PO DAILY azithromycin 250 mg PO 3XW blood pressure monitor (Blood Pressure Kit) Take BP up to once daily and keep a log blood sugar diagnostic Use daily as directed to check blood glucose blood sugar diagnostic (FreeStyle Lite Strips) As directed tests 5 X/day blood-glucose meter Use daily As directed to check blood glucose blood-glucose meter (FreeStyle Lite Meter kit) As directed- To test blood sugar three times a day blood-glucose meter,continuous (FreeStyle Lola 3 [place]) Use daily As directed to monitor type 2 diabetes blood-glucose sensor (FreeStyle Lola 3 Sensor device) Apply every 14 days As directed blood-glucose sensor (FreeStyle Lola 3 Sensor device) use daily As directed to monitor type 2 diabetes. changed q 14 days budesonide 0.5 mg (2 mL) inhalation BID 30 days cholecalciferol (vitamin D3) 75 mcg PO .Q2days ciclopirox 8% 1 appl topical DAILY 4 weeks [COMPRESSION STOCKINGS (medium compression - 20 to 30 mm); Knee high As directed] CPAP (CPAP Machine/Device) As directed cyclobenzaprine 10 mg PO BEDTIME PRN [DIABETIC SHOES with INSERTS As directed] diphenhydramine HCl (Benadryl) 25 mg PO TID PRN epinephrine (EpiPen 2-Dread) 0.3 mg (0.3 mL) IM Q4H PRN ezetimibe (Zetia) 10 mg PO DAILY ueiuxvemabm-brmidwsqo-burntubm 200-62.5-25 mcg (Trelegy Ellipta) 1 inh inhalation DAILY 30 days gabapentin 1 capsule BID and 2 capsules at bedtime orally -(4 capsules a day in total) 28 days [HIP BRACE (left hip) As directed] hydralazine 100 mg PO TID 90 days hydrochlorothiazide 25 mg PO DAILY insulin glargine (Lantus Solostar U-100 Insulin) 10 units (0.1 mL) subcut QPM ipratropium-albuterol 0.5 mg-3 mg(2.5 mg base)/3 mL 3 mL inhalation Q6H PRN lancets (FreeStyle Lancets) 28 gauge topical TID lancets (FreeStyle Lancets) As directed 4 X/day lancets Use daily As directed to check blood glucose latanoprost 0.005% 1 drp ophthalmic (eye) DAILY lorazepam 1 to 2 tablets orally twice a day as needed; PRN; 30 days montelukast 10 mg PO QPM nebulizer accessories tubing, mask, nebulizer cup, mouth piece nebulizers As directed olmesartan 40 mg PO DAILY omeprazole 40 mg PO DAILY pen needle, diabetic (BD Ultra-Fine Mini Pen Needle) As directed 1x daily. prednisone 10 mg PO DAILY 9 days [PULSE OXIMETER As directed] sildenafil 50 mg PO DAILY PRN tamsulosin 0.4 mg PO DAILY 90 days [THERMOMETER As directed] tirzepatide (Mounjaro) 2.5 mg (0.5 mL) subcut QWEEK 4 weeks zolpidem 10 mg PO BEDTIME PRN 30 days Tobacco use date assessed: 05/23/23 Dental Screening Dental Screen Date: 05/23/23 HPI 4mth f/u- see comments HPI Details Patient comes in today for his follow up visit States that he continues to experience a frequent sensation of his phlegm pooling in his throat as well as a tight sensation in his throat area, which he states has been going on for a while now Feels that this is a big reason as to why his asthma keeps acting or flaring up often States that he has some trouble swallowing as well as he feels that it takes longer for him to swallow when he is eating; has no problems when drinking fluids Recalls being advised by a doctor (he cannot recall exactly who) that his throat looks very narrow He is now scheduled for EGD and colonoscopy at [facility] [place] in a couple of weeks and is hoping that the EGD would be able to identify what his problem in his throat is and if it is a narrow esophageal opening, he can just have it dilated He is also requesting for a refill on his prednisone today - feels that his asthma is again acting up often due to the heat and humidity currently He denies any fever or sore throat; denies any headaches or dizziness lately Denies any chest pains No nausea/vomiting, no abdominal pain and no change in bowel habits noted He has no follow up labs done recently [facility] Medical History Onychomycosis Diabetes Hx of fracture of fibula GERD without esophagitis Asthma-COPD overlap syndrome Diastasis recti Laryngospasm JOSÉ (obstructive sleep apnea) Bursitis Low back pain Claustrophobia GERD (gastroesophageal reflux disease) Hemoptysis Anxiety Insomnia Migraine Pure hypercholesterolemia Benign essential hypertension Type 2 diabetes mellitus with hyperglycemia, without long-term current use of insulin Stasis edema of both lower extremities Lumbar degenerative disc disease Obesity (BMI 30-39.9) Chronic rhinitis Hiatal hernia Erectile dysfunction Asthma Surgical History History of endoscopy Hx of colonoscopy Hx of cardiac catheterization History of nasal surgery History of carpal tunnel surgery Family History Father No problems noted. Mother Chronic kidney disease (CKD) Heart attack Other Mental health problem Social History Household Members: Spouse and Children Household Members Other:: , kids Housing: House Alcohol intake: never Patient Tobacco Use Status: Never used Tobacco e-Cigarette/Vaping Use: Never Used Second Hand Smoke Exposure: Yes (employees smoked atwork) service: No Current occupational status: disabled Cognitive needs: No Hearing needs: No Vision needs: No Questionnaire Thrive Questionnaire Date Thrive assessed: 05/23/23 AUDIT C Alcohol Use Questionnaire (AUDIT-C) 1. How often do you have a drink containing alcohol?: Never 3. How often do you have six or more drinks on one occasion?: Never Total Score: 0 Score Reviewed/Action Taken: Yes MALLORIE-7 AMB Questionnaire MALLORIE-7 Date MALLORIE - 7 assessed: 05/23/23 Source: Developed by Drs. Oneal Rosenberg, Janelle Blum, Larry Martin and colleagues, with an educational pete from [employer]. Review of Systems Const Denies chills, Denies fatigue, Denies fever(s) and Denies headache(s) ENT Reports dysphagia (see HPI), Denies dizziness, Denies otalgia, Denies headache(s), Denies neck pain, Denies odynophagia and Denies sore throat Card Denies chest pain, Denies irregular heart rhythm, Denies palpitations and Denies dyspnea Resp Reports chest congestion (mild), Reports cough (recurrent, worse at night; coughs up thick whitish phlegm at times), Denies dyspnea and Denies wheezing GI Denies abdominal pain, Denies constipation, Reports dysphagia (see HPI), Denies heartburn, Denies diarrhea, Denies nausea, Denies odynophagia and Denies vomiting Denies difficulty urinating, Denies dysuria and Denies urinary frequency Musc Reports back pain (chronic - over the lower back), Reports arthralgias (left hip; increased pain and swelling over right wrist lately), Denies joint swelling, Denies neck pain and Reports tingling (on and off, in both hands and feet) Skin/Breast Denies rash Neuro Denies dizziness, Denies headache(s) and Reports tingling (on and off, in both hands and feet) Psych Reports anxiety Endo Denies fatigue and Denies palpitations Aller/Immun Denies wheezing Physical exam (Primary Care) Vital Signs: Last Vital Signs Pulse 76 09/27/23 10:07 BP 116/68 09/27/23 10:07 Pulse Ox 98 09/27/23 10:07 Oxygen Delivery Method Room Air 09/27/23 10:07 BMI result Body Mass Index 34.8 Tobacco/Smoking Status: Tobacco use Status Tobacco use date assessed 05/23/23 09/27/23 10:08 Patient Tobacco Use Status Never used Tobacco 09/27/23 10:08 e-Cigarette/Vaping Use Never Used 09/27/23 10:08 Thrive Assessment: Date of Thrive Assessment Date Thrive assessed 05/23/23 09/27/23 10:08 Const General: no acute distress and alert HENMT Ears: TM's normal bilaterally and EAC's normal Throat: Yes posterior oropharynx normal and Yes tonsils normal (no TP congestion) Neck Neck: Yes no lymphadenopathy and Yes supple Thyroid: Thyroid normal Resp Auscultation: clear to auscultation bilaterally, no rales and no wheezes Cardio Rate: regular rate Rhythm: regular rhythm Heart sounds: no murmurs GI Palpation (GI): Soft to palpation and nontender Auscultation: normal bowel sounds General: Yes no CVA tenderness Back/Spine/Pelvis Back: no CVA tenderness Thoracic/Lumbar Spine: lumbar spinal tenderness Skin Rashes: no rashes Extrem General: Yes no clubbing, cyanosis or edema Results AMB Hemoglobin A1c AMB Hemoglobin A1c 6.2 % Last Edit by JAKI Montgomery on 09/27/23 10:21 Results Reviewed Results Reviewed: Laboratory Last Values Hgb A1c (Clinic) 6.2 % (4.0-6.0) H 09/27/23 10:20 Assessment and Plan Assessment & Plan (1) Dysphagia: Comment: Dysphagia to solids Code(s): R13.10 - Dysphagia, unspecified Qualifiers: Dysphagia type: unspecified Qualified Code(s): R13.10 - Dysphagia, unspecified Plan: Barium swallow done back in December 2021 revealed only (+) GERD; gastric emptying time done last year came back normal Patient is currently scheduled for EGD for further evaluation on 10/17/2023 - this will be done at the same time as his screening colonoscopy (2) GERD without esophagitis: Comment: Good oral hygiene, inhaler Code(s): K21.9 - Gastro-esophageal reflux disease without esophagitis Plan: Dietary restrictions reinforced Continue Omeprazole 40 mg QD (3) Type 2 diabetes mellitus with hyperglycemia, without long-term current use of insulin: Code(s): E11.65 - Type 2 diabetes mellitus with hyperglycemia Plan: In-office HgbA1c done today is at 6.2% (HgbA1c was at 6.1% a few months ago) - goal is < 7.0% Reinforced diabetic diet Continue Lantus 10 units SQ Q PM and Trulicity 3 mg SQ once a week; Glipizide was discontinued by endocrinology a couple of months ago Follow up with [facility] Endocrinology as scheduled (4) Benign essential hypertension: Code(s): I10 - Essential (primary) hypertension Plan: Reinforced low sodium diet - goal is systolic BP of 120 mm or less Continue Olmesartan 40 mg QD, Amlodipine 10 mg QD, HCTZ 25 mg QD and Hydralazine 100 mg TID; he was taken off his Metoprolol ER 50 mg BID due to his asthma Patient is again reminded to continue monitoring his blood pressure regularly (5) Pure hypercholesterolemia: Code(s): E78.00 - Pure hypercholesterolemia, unspecified Plan: Patient used to take Atorvastatin 80 mg QD and Ezetimibe 10 mg QD but he seems to have stopped taking these on his own at some point - he himself states that he is not sure when he exactly stopped taking these meds or why he stopped them His cholesterol levels appear to be acceptable when last checked in May 2023 so we held off on starting him back on cholesterol meds at this time Will have him recheck his labs and fasting lipids in 3 months for follow-up and advised that if his numbers go back up, then we may need to start him back on some Rx for his cholesterol then Reinforced low cholesterol diet (6) Asthma-COPD overlap syndrome: Code(s): J44.9 - Chronic obstructive pulmonary disease, unspecified Plan: Continue Trelegy Ellipta 200-62.5-25 mcg 1 inhalation QD, Montelukast 10 mg Q PM and Albuterol HFA 2 inhalations every 6 hours as needed Daliresp was discontinued by pulmonary He is currently being worked up further to see if he is a candidate for injection therapy with the newer biologic Rxs Follow up with pulmonary at [facility] as scheduled Per request, will start him again on a short course of oral Prednisone taper for his recent asthma flare up (7) Migraine: Code(s): G43.909 - Migraine, unspecified, not intractable, without status migrainosus Qualifiers: Migraine type: unspecified Status migrainosus presence: without status migrainosus Intractability: not intractable Qualified Code(s): G43.909 - Migraine, unspecified, not intractable, without status migrainosus Plan: Stable lately He was tried on Topiramate 25 mg Q HS for headache prophylaxis a few years ago but appears to have self-discontinued this shortly afterwards - he does not recall at present whether it helped him back then or not (8) Lumbar degenerative disc disease: Code(s): M51.36 - Other intervertebral disc degeneration, lumbar region Plan: Reinforced activity and weight-lifting restrictions Continue Gabapentin 400 mg 1 capsule in AM, 1 capsule in PM and 2 capsules at bedtime He has been referred to [facility] Pain Management for further recommendations and management plan for his chronic low back pain (9) Erectile dysfunction: Code(s): N52.9 - Male erectile dysfunction, unspecified Qualifiers: Erectile dysfunction type: unspecified Qualified Code(s): N52.9 - Male erectile dysfunction, unspecified Plan: Continue Sildenafil 50 mg PRN Follow up with urology as scheduled (10) Insomnia: Code(s): G47.00 - Insomnia, unspecified Qualifiers: Insomnia type: unspecified Qualified Code(s): G47.00 - Insomnia, unspecified Plan: Sleep hygiene reinforced Continue Zolpidem 10 mg Q HS PRN; also takes Melatonin 10 mg Q HS PRN He was tried previously on Lunesta but states that he cannot stand its aftertaste (11) Anxiety: Code(s): F41.9 - Anxiety disorder, unspecified Plan: Continue Lorazepam 0.5 mg 1 to 2 tablets BID PRN (12) Major depressive disorder, recurrent: Code(s): F33.9 - Major depressive disorder, recurrent, unspecified Qualifiers: Active/Remission status: currently active Major depression episode severity: unspecified Qualified Code(s): F33.9 - Major depressive disorder, recurrent, unspecified Plan: He was on Sertraline 50 mg QD in the past but stopped taking it at some point - is not sure when or why but states that he feels okay without Rx for now Follow up with psychiatry as scheduled (13) Obesity (BMI 30-39.9): Code(s): E66.9 - Obesity, unspecified Plan: Reinforced diet/exercise as tolerated/lose weight Plan Follow up in 3 months Orders: Orders AMB Hemoglobin A1c Today E11.9 - Type 2 diabetes mellitus without complications Complete Blood Count Auto Diff 3 Months D64.9 - Anemia, unspecified Lipid Panel 3 Months E78.00 - Pure hypercholesterolemia, unspecified UA CC w/rflx Micro + Cult 3 Months R30.0 - Dysuria Vitamin D 25-OH Total 3 Months E55.9 - Vitamin D deficiency, unspecified Comprehensive [place]. Panel Fast 3 Months E78.00 - Pure hypercholesterolemia, unspecified Hemoglobin A1c 3 Months E11.9 - Type 2 diabetes mellitus without complications Microalbumin, Random (w Creat) 3 Months E11.9 - Type 2 diabetes mellitus without complications TSH reflex Free T4 3 Months E78.00 - Pure hypercholesterolemia, unspecified Vitamin B12 and Folate 3 Months E53.8 - Deficiency of other specified B group vitamins Medications: Refilled prednisone 10 mg 3 tabs x 3 days 2 tabs x 3 days 1 tab x 3 days 10 mg PO DAILY 18 tabs 0RF 9 days Coding Level of Care Code Est Pt Level 4 (97729) Complex EM visit Add On G2211 Diagnoses Dysphagia, unspecified type R13.10 Dysphagia type: unspecified GERD without esophagitis K21.9 Type 2 diabetes mellitus with hyperglycemia, without long-term current use of insulin E11.65 Benign essential hypertension I10 Pure hypercholesterolemia E78.00 Asthma-COPD overlap syndrome J44.9 Migraine without status migrainosus, not intractable, unspecified migraine type G43.909 Migraine type: unspecified Status migrainosus presence: without status migrainosus Intractability: not intractable Lumbar degenerative disc disease M51.36 Erectile dysfunction, unspecified erectile dysfunction type N52.9 Erectile dysfunction type: unspecified Insomnia, unspecified type G47.00 Insomnia type: unspecified Anxiety F41.9 Episode of recurrent major depressive disorder, unspecified depression episode severity F33.9 Active/Remission status: currently active Major depression episode severity: unspecified Obesity (BMI 30-39.9) E66.9
== END 2023-09-27 11:14 | disposition home or self-care (01) ==
PROVIDERS: PCP Internal Medicine; Visit Provider Internal Medicine
DX: R13.10 Dysphagia, unspecified (principal); E11.65 Type 2 diabetes mellitus with hyperglycemia; I10 Essential (primary) hypertension; J44.9 Chronic obstructive pulmonary disease, unspecified; E78.00 Pure hypercholesterolemia, unspecified; G43.909 Migraine, unspecified, not intractable, without status migrainosus; M51.36 Other intervertebral disc degeneration, lumbar region; N52.9 Male erectile dysfunction, unspecified; G47.00 Insomnia, unspecified; F41.9 Anxiety disorder, unspecified
CPT/HCPCS: 83036; 99214; G2211

== ENCOUNTER 2023-10-02 20:47 | Emergency (ER) | payer OTHER, SELFPAY ==
--- NOTE | 2023-10-02 | ECG_ITS ---
Test Reason : SOB Blood Pressure : / mmHG Vent. Rate : 084 BPM Atrial Rate : 084 BPM P-R Int : 192 ms QRS Dur : 144 ms QT Int : 396 ms P-R-T Axes : 011 -28 -05 degrees QTc Int : 467 ms Normal sinus rhythm Right bundle branch block Abnormal ECG When compared with ECG of 11-FEB-2022 16:54, No significant change was found Referred By: Generic ED Physician Electronically Signed By:HUGO CLARKE MD
--- NOTE | ~2023-10-02 | XR_ITS ---
EXAMINATION: XR CHEST CLINICAL INFORMATION: Shortness of breath. COMPARISON: Chest radiograph dated 05/10/2022. TECHNIQUE: 2 views of the chest were obtained. FINDINGS: The heart is normal in size. The lungs are clear. There is no pleural effusion or pneumothorax. There are degenerative changes of the spine. XR/XR chest 2V IMPRESSION: No acute cardiopulmonary disease.
[2023-10-02 20:49] VITALS: BP 158/86; PULSE 88; RESP 18; TEMP 37.2; O2SAT 99; BMI 34.2
[2023-10-02 21:16] LABS: Basophils Absolute Auto 0.1 X10*3/uL (0.0-0.2); Basophils Percent Auto 0.7 % (0-2); Eosinophils Absolute Auto 0.1 X10*3/uL (0.0-0.4); Eosinophils Percent Auto 1.9 % (0-4); Hematocrit 41.2 % (42.0-52.0); Hemoglobin 14.1 g/dl (14.0-18.0); Imm Gran Abs Auto 0.04 X10*3/uL (0.00-0.03); Imm Gran Pct Auto 0.6 % (0.0-0.4); Lymphocytes Absolute Auto 1.8 X10*3/uL (1.2-4.9); Lymphocytes Percent Auto 26.5 % (20-40); MANUAL DIFF FLAG NO; Mean Corpuscular HGB Conc 34.2 g/dl (31.0-36.0); Mean Corpuscular Hemoglobin 30.4 pg (27.0-33.0); Mean Corpuscular Volume 88.8 fL (80.0-98.0); Mean Platelet Volume 10.2 fL (9.4-12.4); Monocytes Absolute Auto 0.6 X10*3/uL (0.1-1.2); Monocytes Percent Auto 8.6 % (2-11); Neutrophils Absolute Auto 4.1 x10*3/uL (2.0-8.3); Neutrophils Percent Auto 61.7 % (45-73); Platelet Count 292 X10*3/uL (160-400); Red Blood Count 4.64 X10*6/uL (4.60-5.80); Red Cell Distribution Width 12.5 % (11.0-16.0); White Blood Count 6.7 X10*3/uL (4.8-10.8)
[2023-10-02 21:49] LABS: Alanine Aminotransferase 29 U/L (0-40); Alkaline Phosphatase 60 U/L (39-117); Anion Gap 13 (12-20); Aspartate Amino Transferase 23 U/L (5-37); Bilirubin Direct 0.1 mg/dL (0.0-0.5); Bilirubin Total 0.4 mg/dL (0.0-1.0); Blood Urea Nitrogen 23 mg/dL (9-16); Calcium 9.3 mg/dL (8.4-10.2); Carbon Dioxide 24 mmol/L (22-29); Chloride 108 mmol/L (96-108); Creatinine Clr Calc Pharmacy 77.4; Estimated Glomerular Filt Rate > 60; Glucose Random 175 mg/dL (60-115); Lipase 46 U/L (8-78); Potassium 3.9 mmol/L (3.3-5.1); Sodium 141 mmol/L (135-145); Total Protein 6.5 g/dL (6.5-8.0)
[2023-10-02 21:50] LABS: Troponin-I High Sensitivity 4.6 ng/L (<3.5-35.0)
[2023-10-02 22:32] VITALS: BP 149/82; PULSE 83; RESP 17; TEMP 527.2; TEMP 981; O2SAT 97
[2023-10-02] MEDS: Albuterol Sulfate 2.5 MG, Albuterol/Iprat 2.5/0.5MG 3 ML 3 ML INHALE (23:12)
[2023-10-02 23:13] VITALS: PULSE 78; RESP 16; O2SAT 97
--- NOTE | 2023-10-02 23:34 | ED.SOB ---
HPI - SOB/Dyspnea General Chief Complaint: Dyspnea Stated Complaint: difficulty breathing Time Seen by Provider: 10/02/23 23:01 Source: patient Mode of arrival: ambulatory Limitations: no limitations History of Present Illness HPI Narrative: Patient is a 58-year-old male who presents to the emergency department for evaluation of shortness of breath. Reports onset 1-2 hours prior to arrival, he attempted using his DuoNeb nebulizers at home with only minimal improvement. He reports that he is prescribed prednisone 20 mg to use as needed with acute exacerbations of asthma-COPD, he did take 20 mg did not notice any difference. He endorsed having a tightness in his chest associated with this. He states that this feels consistent with prior exacerbations of his chronic respiratory disease. He denies any recent URI symptoms, fevers, chills, dizziness, lightheadedness, neck pain, neck stiffness, nausea vomiting, abdominal pain, numbness or tingling of the extremities, recent lower extremity redness pain or swelling. Related Data Home Medications ?Medication ?Instructions ?Recorded ?Confirmed aspirin 81 mg tablet,delayed 81 mg PO DAILY 02/18/20 09/27/23 release CPAP (CPAP Machine/Device) 11/19/21 09/27/23 cholecalciferol (vitamin D3) 25 75 mcg PO .Q2days 04/19/22 09/27/23 mcg (1,000 unit) capsule Previous Rx's ?Medication ?Instructions ?Recorded amlodipine 10 mg tablet 10 mg PO DAILY #90 tabs 05/11/20 budesonide 0.5 mg/2 mL suspension 0.5 mg (2 mL) inhalation BID 30 11/17/20 for nebulization days #120 mL PULSE OXIMETER #1 ea 08/26/21 HIP BRACE (left hip) #1 ea 09/28/21 THERMOMETER #1 ea 09/28/21 ipratropium 0.5 mg-albuterol 3 mg 3 ml inhalation Q6H PRN shortness 11/19/21 (2.5 mg base)/3 mL nebulization of breath or wheezing #180 mL soln ezetimibe 10 mg tablet (Zetia) 10 mg PO DAILY #90 tabs 11/24/21 fluticasone fur. 200 mcg-umeclid 1 inh inhalation DAILY 30 days #60 11/24/21 62.5 mcg-vilant 25 mcg ea inhalat.powder (Trelegy Ellipta) latanoprost 0.005 % eye drops 1 drp ophthalmic (eye) DAILY #7.5 11/24/21 mL lancets 28 gauge (FreeStyle 28 gauge topical TID #300 ea 03/01/22 Lancets) COMPRESSION STOCKINGS (medium #3 ea 03/03/22 compression - 20 to 30 mm); Knee high epinephrine 0.3 mg/0.3 mL 0.3 mg (0.3 mL) IM Q4H PRN 05/27/22 injection, auto-injector (EpiPen anaphylaxis #2 ea 2-Dread) blood pressure monitor (Blood #1 ea 07/26/22 Pressure Kit) diphenhydramine HCl 25 mg capsule 25 mg PO TID PRN allergic reaction 09/24/22 (Benadryl) #20 caps zolpidem 10 mg tablet 10 mg PO BEDTIME PRN insomnia 30 11/23/22 days #30 tabs albuterol sulfate 2.5 mg/3 mL 2.5 mg (3 mL) continuous 12/14/22 (0.083 %) solution for nebulization nebulization QID PRN shortness of breath or wheezing 30 days #480 mL nebulizer accessories #1 ea 12/22/22 nebulizers #1 ea 12/22/22 hydralazine 100 mg tablet 100 mg PO TID 90 days #270 tabs 12/29/22 insulin glargine 100 unit/mL (3 10 unit (0.1 mL) subcut QPM #15 mL 02/17/23 mL) subcutaneous pen (Lantus Solostar U-100 Insulin) albuterol sulfate 90 mcg/actuation 2 puff PO QID PRN shortness of 02/21/23 aerosol inhaler (Ventolin HFA) breath or wheezing 90 days #3 multiple units DIABETIC SHOES with INSERTS #2 ea 05/23/23 lorazepam 0.5 mg tablet See Rx Instructions .Route 05/23/23 .COMPLEX PRN anxiety 30 days #60 tabs tamsulosin 0.4 mg capsule 0.4 mg PO DAILY 90 days #90 caps 06/21/23 pen needle, diabetic 31 gauge x #50 ea 07/10/23 3/16 (BD Ultra-Fine Mini Pen Needle) cyclobenzaprine 10 mg tablet 10 mg PO BEDTIME PRN muscle spasm 07/12/23 #5 tabs ciclopirox 8 % topical solution 1 appl topical DAILY 4 weeks #6.6 08/07/23 mL sildenafil 50 mg tablet 50 mg PO DAILY PRN sexual activity 08/18/23 #10 tabs blood-glucose sensor (FreeStyle #2 ea 08/28/23 Lola 3 Sensor device) azithromycin 250 mg tablet 250 mg PO 3XW #12 tabs 08/30/23 montelukast 10 mg tablet 10 mg PO QPM #90 tabs 08/30/23 tirzepatide 2.5 mg/0.5 mL 2.5 mg (0.5 mL) subcut QWEEK 4 09/08/23 subcutaneous pen injector weeks #2 mL (Michelle) alcohol swabs (BD Alcohol Swabs) 1 pad topical TID for diabetes 09/15/23 mellitus #300 pad blood sugar diagnostic #100 ea 09/15/23 lancets #100 ea 09/15/23 blood sugar diagnostic (FreeStyle #100 ea 09/20/23 Lite Strips) blood-glucose meter,continuous #1 ea 09/25/23 (FreeStyle Lola 3 [place]) blood-glucose sensor (FreeStyle #2 ea 09/25/23 Lola 3 Sensor device) lancets 28 gauge (FreeStyle #100 ea 09/25/23 Lancets) blood-glucose meter #1 ea 09/27/23 blood-glucose meter (FreeStyle #1 ea 09/27/23 Lite Meter kit) gabapentin 400 mg capsule See Rx Instructions PO .COMPLEX 28 09/27/23 days #112 caps hydrochlorothiazide 25 mg tablet 25 mg PO DAILY #90 tabs 09/27/23 olmesartan 40 mg tablet 40 mg PO DAILY #90 tabs 09/27/23 omeprazole 40 mg capsule,delayed 40 mg PO DAILY #30 caps 09/27/23 release prednisone 10 mg tablet 10 mg PO DAILY 9 days #18 tabs 09/27/23 prednisone 20 mg tablet 40 mg (2 x 20 mg) PO DAILY #8 tabs 10/03/23 Allergies Allergy/AdvReac Type Severity Reaction Status Date / Time iodine [Iodine] Allergy Severe THROAT Verified 10/02/23 20:53 SWELLING lisinopril Allergy Severe Rash Verified 10/02/23 20:53 metformin Allergy Severe diarrhea Verified 10/02/23 20:53 meperidine [From Demerol] Allergy Mild RASH Verified 10/02/23 20:53 oxycodone [From Percocet] AdvReac Mild MOUTH Verified 10/02/23 20:53 DRYNESS,RASH Mercury Detox Allergy Severe Close Uncoded 10/02/23 20:53 Throat Shellfish Allergy Severe THROAT Uncoded 10/02/23 20:53 SWELLING Review of Systems Review of Systems: Yes all other systems are reviewed and are negative PMFSH Past Medical History Attestation statement: The following information was validated with the patient. Source: old records reviewed Medical History Onychomycosis Diabetes Hx of fracture of fibula GERD without esophagitis Asthma-COPD overlap syndrome Diastasis recti Laryngospasm JOSÉ (obstructive sleep apnea) Bursitis Low back pain Claustrophobia GERD (gastroesophageal reflux disease) Hemoptysis Anxiety Insomnia Migraine Pure hypercholesterolemia Benign essential hypertension Type 2 diabetes mellitus with hyperglycemia, without long-term current use of insulin Stasis edema of both lower extremities Lumbar degenerative disc disease Obesity (BMI 30-39.9) Chronic rhinitis Hiatal hernia Erectile dysfunction Asthma Surgical History History of endoscopy Hx of colonoscopy Hx of cardiac catheterization History of nasal surgery History of carpal tunnel surgery Family History Family History Father No problems noted. Mother Chronic kidney disease (CKD) Heart attack Other Mental health problem Social History Social History Household Members: Spouse and Children Household Members Other:: , kids Housing: House Alcohol intake: never Patient Tobacco Use Status: Never used Tobacco Smoked in Last 30 Days: No e-Cigarette/Vaping Use: Never Used Second Hand Smoke Exposure: Yes (employees smoked atwork) Use of substances other than those prescribed or required for medical reasons: No Advance Directives: No Advance Directives Information Provided: No Do you have a plan to hurt others: No Plan service: No Current occupational status: disabled Cognitive needs: No Hearing needs: No Vision needs: No Physical Exam Vital Signs: Vital Signs: Last Vital Signs Temp 98.0 F 10/03/23 00:41 Pulse 85 10/03/23 00:41 Resp 12 10/03/23 00:41 BP 138/72 10/03/23 00:41 Pulse Ox 97 10/03/23 00:41 O2 Del Method Room Air 10/03/23 00:41 BMI result Body Mass Index 34.2 Appearance: Alert.?Oriented to person, place and time. No acute distress.?Normal affect. Eyes: Pupils equal, round and reactive to light.? ENT: Pharynx normal.?? Neck: Normal inspection.? Neck supple.?? CVS: Heart sounds normal. Normal heart rate and rhythm.? Pulses normal.?? Respiratory: No respiratory distress.? Lung sounds diminished bilaterally? Abdomen: Soft and non-tender. Normoactive bowel sounds. Skin: Skin warm and dry.? Normal skin color.? Extremities: No lower extremity edema.? No calf ttp? Neuro: Moves all extremities spontaneously. Sensation intact bilaterally. Ambulates with normal steady gait. Course Reevaluation(s) Reevaluation #1: better will d/c home Time: 00:23 Medications Administered Discontinued Medications Generic Name Dose Route Start Last Admin Trade Name Freq PRN Reason Stop Dose Admin Albuterol Sulfate 2.5 mg/ 0 mg 10/02/23 23:09 10/02/23 23:12 Albuterol/Ipratropium 3 ml INHALE 10/02/23 23:10 1 dose ONCE ONE Administration Prednisone 40 mg 10/03/23 00:31 10/03/23 00:37 Prednisone 20 Mg Tablet PO 10/03/23 00:32 40 mg ONCE ONE Administration Medical Decision Making Medical Decision Making [facility] Narrative: Patient is a 58-year-old male with past medical history of asthma-COPD overlap, diabetes, hypertension, hyperlipidemia presents to the emergency department for evaluation of shortness of breath as per HPI. Smell, no respiratory distress, speaking clear full sentences, lung sounds are diminished bilaterally but no significant wheezing or rales. 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 While in the emergency department he received an additional 40 mg of prednisone, in addition to an albuterol 2.5 mg nebulizer. CXR was without evidence of consolidation or infiltrate to suggest pneumonia. EKG revealing normal sinus rhythm with right bundle-branch block which has been seen on prior ECG, ventricular rate of 84, QTC 467, no ST elevation, no ST depression, appears consistent with prior EKG, high sensitive troponin within normal range, do not suspect secondary to ACS. Wells negative, unlikely PE. At this time feel that he is stable for discharge home, will provide additional prednisone burst therapy, advised outpatient follow-up with PCP/pulmonology, and strict return precautions. He is requesting discharge home which I feel is reasonable at this time. Differential Diagnosis Differential Diagnoses: The differential diagnosis associated with the presentation includes (See above) Admission/Observation Consideration of admission/observation: Escalation of care including admission/observation considered (See narrative above) Lab Data MDM Lab Attestation statement: I reviewed the patient's lab results. Viral panel was negative. CMP overall unremarkable. CBC is without leukocytosis anemia or thrombocytopenia. 10/02/23 21:11 10/02/23 21:11 Labs: Lab Results 10/02/23 10/02/23 Range/Units 21:11 23:42 WBC 6.7 (4.8-10.8) X10*3/uL RBC 4.64 (4.60-5.80) X10*6/uL Hgb 14.1 (14.0-18.0) g/dl Hct 41.2 L (42.0-52.0) % MCV 88.8 (80.0-98.0) fL MCH 30.4 (27.0-33.0) pg MCHC 34.2 (31.0-36.0) g/dl RDW 12.5 (11.0-16.0) % Plt Count 292 (160-400) X10*3/uL MPV 10.2 (9.4-12.4) fL Immature Gran % (Auto) 0.6 H (0.0-0.4) % Neut % (Auto) 61.7 (45-73) % Lymph % (Auto) 26.5 (20-40) % [place] % (Auto) 8.6 (2-11) % Eos % (Auto) 1.9 (0-4) % Baso % (Auto) 0.7 (0-2) % Lymph # (Auto) 1.8 (1.2-4.9) X10*3/uL [place] # (Auto) 0.6 (0.1-1.2) X10*3/uL Eos # (Auto) 0.1 (0.0-0.4) X10*3/uL Baso # (Auto) 0.1 (0.0-0.2) X10*3/uL Abs Immat Gran (auto) 0.04 H (0.00-0.03) X10*3/uL Absolute Neuts (auto) 4.1 (2.0-8.3) x10*3/uL Absolute Nucleated RBC 0.000 (0.0-0.012) X10*3/uL Nucleated RBC % (auto) 0.0 (0.0-0.2) /100WBC Sodium 141 (135-145) mmol/L Potassium 3.9 (3.3-5.1) mmol/L Chloride 108 (96-108) mmol/L Carbon Dioxide 24 (22-29) mmol/L Anion Gap 13 (12-20) BUN 23 H (9-16) mg/dL Creatinine 1.19 (0.5-1.4) mg/dL Estim Creat Clear Calc 77.4 Estimated GFR > 60 Random Glucose 175 H (60-115) mg/dL Calcium 9.3 (8.4-10.2) mg/dL Total Bilirubin 0.4 (0.0-1.0) mg/dL Direct Bilirubin 0.1 (0.0-0.5) mg/dL AST 23 (5-37) U/L ALT 29 (0-40) U/L Alkaline Phosphatase 60 (39-117) U/L Troponin I High Sens 4.6 (<3.5-35.0) ng/L Total Protein 6.5 (6.5-8.0) g/dL Albumin 4.0 (3.5-5.0) g/dL Lipase 46 (8-78) U/L Influenza Type A (PCR) NEGATIVE (Negative) Influenza Type B (PCR) NEGATIVE (Negative) RSV RNA Qual (PCR) NEGATIVE (Negative) SARS-CoV-2 RNA (RT-PCR) NEGATIVE (Negative) Independent Interpretation I performed an independent interpretation of an: EKG (See narrative above) and Plain X-Ray (See narrative above) Radiology Impression Discussion of test interpretation with radiology: I have reviewed the radiologist's reading. Radiologist Impression: XR/XR chest 2V IMPRESSION: No acute cardiopulmonary disease. External Record Review External record reviewed: Outpatient record Prescription Management I considered prescription management with: Antibiotic and Other (See narrative above) Chronic Conditions Patient?s care impacted by: Diabetes and Other (Asthma-COPD overlap) Discharge Plan Discharge Clinical Impression: Acute exacerbation of chronic obstructive pulmonary disease Patient Disposition: Home, Self-Care Instructions: COPD (Chronic Obstructive Pulmonary Disease) (ED) Additional Instructions: Continue taking your azithromycin as prescribed. Prescription for a short additional course of prednisone was sent to your pharmacy, take prednisone 40 mg daily for the next 4 days. Continue using your inhalers and nebulizer treatments as prescribed. Follow-up with your primary care provider/timber management technician. Return back to emergency department any new or worsening symptoms or concerns Prescriptions: New prednisone 20 mg tablet 40 mg PO DAILY Qty: 8 0RF No Action budesonide 0.5 mg/2 mL suspension for nebulization 0.5 mg inhalation BID 30 Days Qty: 120 6RF (DME) PULSE OXIMETER See Rx Instructions .Route .MEDSUPPLY Qty: 1 0RF Rx Instructions: As directed (DME) HIP BRACE (left hip) See Rx Instructions .Route .MEDSUPPLY Qty: 1 0RF Rx Instructions: As directed (DME) THERMOMETER See Rx Instructions .Route .MEDSUPPLY Qty: 1 0RF Rx Instructions: As directed ipratropium-albuterol 0.5 mg-3 mg(2.5 mg base)/3 mL solution for nebulization 3 ml inhalation Q6H PRN (Reason: shortness of breath or wheezing) Qty: 180 2RF ezetimibe [Zetia] 10 mg tablet 10 mg PO DAILY Qty: 90 3RF Trelegy Ellipta 200-62.5-25 mcg blister with device 1 inh inhalation DAILY 30 Days Qty: 60 12RF latanoprost 0.005 % drops 1 drp ophthalmic (eye) DAILY Qty: 7.5 3RF Rx Instructions: as directed lancets [FreeStyle Lancets] 28 gauge misc 28 gauge topical TID Qty: 300 11RF epinephrine [EpiPen 2-Dread] 0.3 mg/0.3 mL auto-injector 0.3 mg IM Q4H PRN (Reason: anaphylaxis) Qty: 2 0RF (DME) blood pressure monitor [Blood Pressure Kit] Kit See Rx Instructions .Route Qty: 1 0RF Rx Instructions: Take BP up to once daily and keep a log zolpidem 10 mg tablet 10 mg PO BEDTIME PRN (Reason: insomnia) 30 Days Qty: 30 3RF albuterol sulfate 2.5 mg /3 mL (0.083 %) solution for nebulization 2.5 mg continuous nebulization QID PRN (Reason: shortness of breath or wheezing) 30 Days Qty: 480 5RF (DME) nebulizers Misc See Rx Instructions .Route Qty: 1 0RF Rx Instructions: As directed (DME) nebulizer accessories Mis See Rx Instructions .ROUTE .MEDSUPPLY Qty: 1 11RF Rx Instructions: tubing, mask, nebulizer cup, mouth piece insulin glargine [Lantus Solostar U-100 Insulin] 100 unit/mL (3 mL) insulin pen 10 unit subcut QPM Qty: 15 2RF albuterol sulfate [Ventolin HFA] 90 mcg/actuation HFA aerosol inhaler 2 puff PO QID PRN (Reason: shortness of breath or wheezing) 90 Days Qty: 3 3RF tamsulosin 0.4 mg capsule 0.4 mg PO DAILY 90 Days Qty: 90 1RF (DME) pen needle, diabetic [BD Ultra-Fine Mini Pen Needle] 31 gauge x 3/16 needle See Rx Instructions miscellaneous .MEDSUPPLY Qty: 50 12RF Rx Instructions: As directed 1x daily. sildenafil 50 mg tablet 50 mg PO DAILY PRN (Reason: sexual activity) Qty: 10 1RF (DME) FreeStyle Lola 3 Sensor Device See Rx Instructions .Route Qty: 2 11RF Rx Instructions: Apply every 14 days As directed montelukast 10 mg tablet 10 mg PO QPM Qty: 90 0RF azithromycin 250 mg tablet 250 mg PO 3XW Qty: 12 0RF Mounjaro 2.5 mg/0.5 mL pen injector 2.5 mg subcut QWEEK 28 Days Qty: 2 2RF alcohol swabs [BD Alcohol Swabs] Pads, Medicated 1 pad topical TID Qty: 300 0RF (DME) lancets Misc See Rx Instructions .Route Qty: 100 3RF Rx Instructions: Use daily As directed to check blood glucose (DME) blood sugar diagnostic Strip See Rx Instructions .Route Qty: 100 2RF Rx Instructions: Use daily as directed to check blood glucose (DME) FreeStyle Lite Strips Strip See Rx Instructions .Route Qty: 100 12RF Rx Instructions: As directed tests 5 X/day (DME) FreeStyle Lola 3 Sensor Device See Rx Instructions .ROUTE .MEDSUPPLY Qty: 2 11RF Rx Instructions: use daily As directed to monitor type 2 diabetes. changed q 14 days (DME) FreeStyle Lola 3 [place] Misc See Rx Instructions .ROUTE .MEDSUPPLY Qty: 1 0RF Rx Instructions: Use daily As directed to monitor type 2 diabetes (DME) lancets [FreeStyle Lancets] 28 gauge misc See Rx Instructions .Route Qty: 100 4RF Rx Instructions: As directed 4 X/day (DME) blood-glucose meter Kit See Rx Instructions .Route Qty: 1 0RF Rx Instructions: Use daily As directed to check blood glucose (DME) blood-glucose meter [FreeStyle Lite Meter] Kit See Rx Instructions .Route Qty: 1 0RF Rx Instructions: As directed- To test blood sugar three times a day olmesartan 40 mg tablet 40 mg PO DAILY Qty: 90 0RF hydrochlorothiazide 25 mg tablet 25 mg PO DAILY Qty: 90 0RF gabapentin 400 mg capsule See Rx Instructions PO .COMPLEX 28 Days Qty: 112 0RF Rx Instructions: 1 capsule BID and 2 capsules at bedtime orally -(4 capsules a day in total) omeprazole 40 mg capsule,delayed release(DR/EC) 40 mg PO DAILY Qty: 30 6RF cyclobenzaprine 10 mg tablet 10 mg PO BEDTIME PRN (Reason: muscle spasm) Qty: 5 0RF diphenhydramine HCl [Benadryl] 25 mg capsule 25 mg PO TID PRN (Reason: allergic reaction) Qty: 20 0RF aspirin 81 mg tablet,delayed release (DR/EC) 81 mg PO DAILY prednisone 10 mg tablet 10 mg PO DAILY 9 Days Qty: 18 0RF Rx Instructions: 10 mg 3 tabs x 3 days 2 tabs x 3 days 1 tab x 3 days (DME) COMPRESSION STOCKINGS (medium compression - 20 to 30 mm); Knee high medium compression See Rx Instructions .Route .MEDSUPPLY Qty: 3 11RF Rx Instructions: As directed lorazepam 0.5 mg tablet See Rx Instructions .ROUTE .COMPLEX PRN (Reason: anxiety) 30 Days Qty: 60 0RF Rx Instructions: 1 to 2 tablets orally twice a day as needed; PRN; (DME) DIABETIC SHOES with INSERTS See Rx Instructions .Route .MEDSUPPLY Qty: 2 0RF Rx Instructions: As directed amlodipine 10 mg tablet 10 mg PO DAILY Qty: 90 1RF (DME) CPAP Machine/Device Device See Rx Instructions .Route Rx Instructions: As directed cholecalciferol (vitamin D3) 25 mcg (1,000 unit) capsule 75 mcg PO .Q2days ciclopirox 8 % solution 1 appl topical DAILY 28 Days Qty: 6.6 5RF hydralazine 100 mg tablet 100 mg PO TID 90 Days Qty: 270 3RF Referrals: Oliverio Emerson MD [Primary Care Provider] - Interventions: ED Discharge Assessment Last Done: 10/03/23 00:41 Discharge Date/Time: 10/03/23 00:58 Print Language: Citizen Of [place]
[2023-10-03 00:25] LABS: Influenza A PCR NEGATIVE (Negative); Influenza B PCR NEGATIVE (Negative); Resp Syncy Virus RNA Qual PCR NEGATIVE (Negative); SARS COV2 PCR INHOUSE NEGATIVE (Negative)
[2023-10-03] MEDS: predniSONE 20 MG TABLET 40 MG PO (00:37)
[2023-10-03 00:41] VITALS: BP 138/72; PULSE 85; RESP 12; TEMP 36.7; O2SAT 97
== END 2023-10-03 00:58 | disposition home or self-care (01) ==
PROVIDERS: Nurse Practitioner Family; Emergency Provider Emergency Medicine; PCP Internal Medicine
DX: J44.1 Chronic obstructive pulmonary disease with (acute) exacerbation (principal); R06.02 Shortness of breath; E11.9 Type 2 diabetes mellitus without complications; Z79.4 Long term (current) use of insulin; Z03.818 Encounter for observation for suspected exposure to other biological agents ruled out; Z79.899 Other long term (current) drug therapy
CPT/HCPCS: 0241U; 36415; 71046; 80048; 80076; 83690; 84484; 85025; 93005; 94640; 99284; 99285

== ENCOUNTER → 2023-10-02 20:57 | Outpatient (BNV) | payer OTHER, SELFPAY | PROVIDERS: Emergency Provider Emergency Medicine; PCP Internal Medicine; Visit Provider Internal Medicine Cardiovascular Disease | DX: R94.31 Abnormal electrocardiogram [ECG] [EKG] (principal) | CPT/HCPCS: 93010 ==

== ENCOUNTER 2023-10-17 10:02 | Day surgery (SDC) | payer OTHER, SELFPAY ==
[2023-10-17 12:51] VITALS: BP 178/108; PULSE 80; RESP 18; TEMP 36.7; O2SAT 97; BMI 35.0
[2023-10-17] MEDS: Albuterol Sulfate (0.083%) 2.5 MG/3 ML VIAL.NEB INHALE (13:06)
[2023-10-17 13:07] VITALS: PULSE 74; RESP 14; O2SAT 100
[2023-10-17] MEDS: Lactated Ringers 1,000 ML 100 ML IVCONT (13:10)
[2023-10-17 13:20] LABS: Glucose, Whole Blood 148 mg/dL (60-115)
--- NOTE | 2023-10-17 13:22 | MHC.SHP ---
Pre-Procedural Eval Section A - 24 Hr Update-Section A only Date of Service: 10/17/23 Section B - Complete if H&P > 30 days Chief Complaint: dysphagia and screening colo Relevant Family History (Specify if Yes): No Relevant Social History: None Present Medications: see Short Stay Collaborative assessment Medical History: Significant History (Laryngospasm Chronic bronchitis Supplemental oxygen dependent Onychomycosis Diabetes Hx of fracture of fibula GERD without esophagitis Asthma-COPD overlap syndrome Diastasis recti Laryngospasm JOSÉ (obstructive sleep apnea) Bursitis Low back pain Claustrophobia GERD (gastroesophageal reflux disease) ) History of Previous Operations: Relevant previous surgery/procedure and date(s) (History of bronchoscopy History of endoscopy Hx of colonoscopy Hx of cardiac catheterization History of nasal surgery History of carpal tunnel surgery) Allergies: Allergies Allergy/AdvReac Type Severity Reaction Status Date / Time iodine [Iodine] Allergy Severe Anaphylaxis Verified 10/09/23 16:05 lisinopril Allergy Severe Rash Verified 10/09/23 16:05 metformin Allergy Severe diarrhea Verified 10/09/23 16:05 meperidine [From Demerol] Allergy Mild RASH Verified 10/09/23 16:05 oxycodone [From Percocet] AdvReac Mild MOUTH Verified 10/09/23 16:05 DRYNESS,RASH Mercury Detox Allergy Severe Throat Uncoded 10/09/23 16:05 closing (charcoal) Shellfish Allergy Severe Anaphylaxis Uncoded 10/09/23 16:05 Review of Systems Sugical H&P ROS: Negative: Constitution, Cardiovascular, Respiratory, Neurological, Psychiatric, Hem-Onc, Allergic/Immunologic, Gastrointestinal, Genitourinary, Musculoskeletal, Integumentary, Endocrine and Eyes/Ears/Nose/Throat Exam Surgical H&P Exam: Normal: HEENT, Normal: Heart, Normal: Lungs, Normal: Extremities, Normal: Abdomen, Normal: Skin and Normal: Neurological Plan Diagnosis/Plan: Unchanged I have reviewed the history and physical and performed a pertinent physical examination on my patient. No changes have occurred unless specified. Time Spent With Patient Time: Total time managing care of this patient today ____ minutes.
--- NOTE | 2023-10-17 14:00 | HO.ANESPROP2 ---
Documented by User: Silvia Lind NP 10/16/23 09:52 HPI - Anesthesia Eval Consult details Narrative: 58yo M for Upper Endoscopy with Dilitation, Colonoscopy [facility] 10/02/23 with COPD exac. Per t/c 10/16/23, breathing back to baseline. Supplemental O2. Anesthesia Pre-Procedure Meds Is the patient on any of the following meds?: GLP1/DPP4 PMFSH Active Problems Active Problems: All Active Problems Abdominal mass, right upper quadrant (Acute) History of adenomatous polyp of colon (Acute) Colon cancer screening (Acute) Upper respiratory tract infection (Acute) Annual physical exam (Acute) Left sided abdominal pain (Acute) Early satiety (Acute) Postprandial epigastric pain (Acute) SOB (shortness of breath) (Acute) Sensation of chest pressure (Acute) Dysphagia (Acute) Pain and swelling of right wrist (Acute) Facet arthropathy, lumbosacral (Acute) Chronic pain syndrome (Acute) Spondylolisthesis, lumbar region (Acute) Spondylosis of lumbar spine (Acute) Paresthesia of both feet (Acute) Insomnia (Acute) Hypertension (Acute) Diabetes mellitus type 2, insulin dependent (Acute) COVID-19 (Acute) Throat discomfort (Acute) Asthma exacerbation (Acute) Recurrent abdominal pain (Acute) Acute bronchitis (Acute) Asthma-COPD overlap syndrome (Acute) Preop cardiovascular exam (Acute) Major depressive disorder, recurrent (Acute) Left hip pain (Acute) Radicular pain of left lower extremity (Acute) Pain of left sacroiliac joint (Acute) Varicose vein of leg (Acute) Leg pain (Acute) NSVT (nonsustained ventricular tachycardia) (Acute) Heart palpitations (Acute) RBBB (Acute) Bronchitis (Acute) Onychomycosis (Acute) Diabetes (Acute) Hx of fracture of fibula (Acute) GERD without esophagitis (Acute) Asthma-COPD overlap syndrome (Acute) Diastasis recti (Acute) Laryngospasm (Acute) JOSÉ (obstructive sleep apnea) (Acute) Hemoptysis (Acute) Anxiety (Acute) Insomnia (Acute) Migraine (Acute) Pure hypercholesterolemia (Acute) Benign essential hypertension (Acute) Type 2 diabetes mellitus with hyperglycemia, without long-term current use of insulin (Acute) Stasis edema of both lower extremities (Acute) Lumbar degenerative disc disease (Acute) Obesity (BMI 30-39.9) (Acute) Chronic rhinitis (Acute) Hiatal hernia (Acute) Erectile dysfunction (Acute) Asthma (Acute) Past Medical History Medical History (Updated 10/09/23 @ 16:32 by Ijeoma Mark RN) Laryngospasm Chronic bronchitis Supplemental oxygen dependent Onychomycosis Diabetes Hx of fracture of fibula GERD without esophagitis Asthma-COPD overlap syndrome Diastasis recti Laryngospasm JOSÉ (obstructive sleep apnea) Bursitis Low back pain Claustrophobia GERD (gastroesophageal reflux disease) Hemoptysis Anxiety Insomnia Migraine Pure hypercholesterolemia Benign essential hypertension Type 2 diabetes mellitus with hyperglycemia, without long-term current use of insulin Stasis edema of both lower extremities Lumbar degenerative disc disease Obesity (BMI 30-39.9) Chronic rhinitis Hiatal hernia Erectile dysfunction Asthma Family History Family History Father No problems noted. Mother Chronic kidney disease (CKD) Heart attack Other Mental health problem Surgical History Surgical History (Updated 10/09/23 @ 16:23 by Ijeoma Mark RN) History of bronchoscopy History of endoscopy Hx of colonoscopy Hx of cardiac catheterization History of nasal surgery History of carpal tunnel surgery History of Problems with Anesthesia: No Social History Social History (Updated 10/09/23 @ 16:22 by Ijeoma Mark RN) Household Members: Spouse, Family and Children Household Members Other:: , kids Housing: House Are you a primary acute care clinical nurse specialist to a significant other at home: No Do you presently have visiting nurse or other home services: No Alcohol intake: never Patient Tobacco Use Status: Never used Tobacco e-Cigarette/Vaping Use: Never Used Second Hand Smoke Exposure: Yes (employees smoked atwork) Use of substances other than those prescribed or required for medical reasons: No Are you DNR?: No Advance Directives: No Advance Directives Information Provided: Yes Advance Directives on File: No Healthcare Proxy: No service: No Current occupational status: disabled Cognitive needs: No Hearing needs: No Vision needs: No Meds Allergies Allergy/AdvReac Type Severity Reaction Status Date / Time iodine [Iodine] Allergy Severe Anaphylaxis Verified 10/09/23 16:05 lisinopril Allergy Severe Rash Verified 10/09/23 16:05 metformin Allergy Severe diarrhea Verified 10/09/23 16:05 meperidine [From Demerol] Allergy Mild RASH Verified 10/09/23 16:05 oxycodone [From Percocet] AdvReac Mild MOUTH Verified 10/09/23 16:05 DRYNESS,RASH Mercury Detox Allergy Severe Throat Uncoded 10/09/23 16:05 closing (charcoal) Shellfish Allergy Severe Anaphylaxis Uncoded 10/09/23 16:05 Home Medications ?Medication ?Instructions ?Recorded ?Confirmed ?Last Taken ?Type aspirin 81 mg tablet,delayed 81 mg PO DAILY 02/18/20 10/09/23 12/09/20 20:00 History release CPAP (CPAP Machine/Device) 11/19/21 09/27/23 Unknown History cholecalciferol (vitamin D3) 25 75 mcg PO .Q2days 04/19/22 10/09/23 Unknown History mcg (1,000 unit) capsule Exam Pertinent Lab Results Pertinent Lab Results: Laboratory Tests 10/02/23 21:11 WBC 6.7 Hgb 14.1 Hct 41.2 L Plt Count 292 Sodium 141 Potassium 3.9 Chloride 108 Carbon Dioxide 24 BUN 23 H Creatinine 1.19 Narrative Narrative: EKG 09/2023 Vent. Rate : 084 BPM Atrial Rate : 084 BPM P-R Int : 192 ms QRS Dur : 144 ms QT Int : 396 ms P-R-T Axes : 011 -28 -05 degrees QTc Int : 467 ms Normal sinus rhythm Right bundle branch block Abnormal ECG When compared with ECG of 11-FEB-2022 16:54, No significant change was found ECHO 2022 Conclusions: - The left ventricular systolic function is normal. The calculated ejection fraction is 59% by biplane method. - No obvious valvular pathology seen on this study. - There is mild dilatation of the ascending aorta measuring 3.90 cm. Assessment and Plan Assessment Anesthesia Assessment: Chart Reviewed Final Anesthetic Review History of Problems with Anesthesia: No Documented by User: Therese Whitlock DO 10/17/23 14:09 HPI - Anesthesia Eval Consult details Narrative: 58yo M for Upper Endoscopy with Dilitation, Colonoscopy [facility] 10/02/23 with COPD exac. Per t/c 10/16/23, breathing back to baseline. Supplemental O2 2L at night. Anesthesia Pre-Procedure Meds Is the patient on any of the following meds?: GLP1/DPP4 [facility] Past Medical History Medical History (Updated 10/09/23 @ 16:32 by Ijeoma Mark RN) Laryngospasm Chronic bronchitis Supplemental oxygen dependent Onychomycosis Diabetes Hx of fracture of fibula GERD without esophagitis Asthma-COPD overlap syndrome Diastasis recti Laryngospasm JOSÉ (obstructive sleep apnea) Bursitis Low back pain Claustrophobia GERD (gastroesophageal reflux disease) Hemoptysis Anxiety Insomnia Migraine Pure hypercholesterolemia Benign essential hypertension Type 2 diabetes mellitus with hyperglycemia, without long-term current use of insulin Stasis edema of both lower extremities Lumbar degenerative disc disease Obesity (BMI 30-39.9) Chronic rhinitis Hiatal hernia Erectile dysfunction Asthma Family History Family History Father No problems noted. Mother Chronic kidney disease (CKD) Heart attack Other Mental health problem Family history of problems with anesthesia: No Surgical History Surgical History (Updated 10/09/23 @ 16:23 by Ijeoma Mark RN) History of bronchoscopy History of endoscopy Hx of colonoscopy Hx of cardiac catheterization History of nasal surgery History of carpal tunnel surgery History of Problems with Anesthesia: No Social History Social History (Updated 10/09/23 @ 16:22 by Ijeoma Mark RN) Household Members: Spouse, Family and Children Household Members Other:: , kids Housing: House Are you a primary acute care clinical nurse specialist to a significant other at home: No Do you presently have visiting nurse or other home services: No Alcohol intake: never Patient Tobacco Use Status: Never used Tobacco e-Cigarette/Vaping Use: Never Used Second Hand Smoke Exposure: Yes (employees smoked atwork) Use of substances other than those prescribed or required for medical reasons: No Are you DNR?: No Advance Directives: No Advance Directives Information Provided: Yes Advance Directives on File: No Healthcare Proxy: No service: No Current occupational status: disabled Cognitive needs: No Hearing needs: No Vision needs: No Meds Allergies Allergy/AdvReac Type Severity Reaction Status Date / Time iodine [Iodine] Allergy Severe Anaphylaxis Verified 10/09/23 16:05 lisinopril Allergy Severe Rash Verified 10/09/23 16:05 metformin Allergy Severe diarrhea Verified 10/09/23 16:05 meperidine [From Demerol] Allergy Mild RASH Verified 10/09/23 16:05 oxycodone [From Percocet] AdvReac Mild MOUTH Verified 10/09/23 16:05 DRYNESS,RASH Mercury Detox Allergy Severe Throat Uncoded 10/09/23 16:05 closing (charcoal) Shellfish Allergy Severe Anaphylaxis Uncoded 10/09/23 16:05 Home Medications ?Medication ?Instructions ?Recorded ?Confirmed ?Last Taken ?Type aspirin 81 mg tablet,delayed 81 mg PO DAILY 02/18/20 10/09/23 12/09/20 20:00 History release CPAP (CPAP Machine/Device) 11/19/21 09/27/23 Unknown History cholecalciferol (vitamin D3) 25 75 mcg PO .Q2days 04/19/22 10/09/23 Unknown History mcg (1,000 unit) capsule Exam Exam Date and Time: October 17, 2023 1400 Height,Weight and Vital Signs: Height 5 ft 8 in Weight 104.326 kg Vital Signs Temperature 98.0 F 10/17/23 12:51 Pulse Rate 80 10/17/23 12:51 Respiratory Rate 18 10/17/23 12:51 Blood Pressure 178/108 H 10/17/23 12:51 Pulse Oximetry 97 10/17/23 12:51 Oxygen Delivery Method Room Air 10/17/23 12:51 Temperature 98.0 F 10/17/23 12:51 Pulse Rate 74 10/17/23 13:07 Respiratory Rate 14 10/17/23 13:07 Blood Pressure 178/108 H 10/17/23 12:51 Pulse Oximetry 97 10/17/23 12:51 Oxygen Delivery Method Room Air 10/17/23 12:51 Airway Mallampati Class: II TM Dist: >3cm Neck ROM: Full Loose/Missing/Broken Teeth: No (patient denies any loose or broken teeth) Heart: S1S2 Lungs: CTAB Assessment and Plan Assessment Anesthesia Assessment: Anesthesia Plan Discussed and Chart Reviewed Final Anesthetic Review Family History of Problems with Anesthesia: No History of Problems with Anesthesia: No NPO: Yes ASA Class: III Final Preanesthetic Review: No Changes in Pt Med Stat, Meds/Allgs Chart Reviewed, Consent Obtained/Reviewed and Anes Risks/Benef Reviewed Patient Risk: Intermediate Procedure Risk: Low Anesthetic Plan Anesthetic Plan: MAC: and Agree w/ Assess. and Plan Disposition: Standard PACU
--- NOTE | 2023-10-17 14:43 | HO.OPN-COLON ---
Colonoscopy Operative Note Operative Note Date of Service: 10/17/23 Narrative: Operative Information Procedure Description: EGD, Colonoscopy Indication: dysphagia, screening Anesthesia: MAC FLEXIBLE TRANSORAL UPPER GASTROINTESTINAL ENDOSCOPY AND COLONOSCOPY PROCEDURE NOTE UPPER ENDOSCOPY Consent: Indications for the procedure and potential complications of bleeding, perforation, reaction to medications and missed diagnosis were discussed with the patient and informed consent was obtained. Instrument: Olympus GIF H 190 J mid size upper endoscope Monitoring: Vital signs and clinical assessment, continuous EKG monitoring, Pulse oximetry, Carbon Dioxide monitoring and blood pressure monitoring were done throughout the procedure. Procedure: The patient was placed in the left lateral decubitis position and pre-procedure medications were administered and a bite block was placed. The endoscope was inserted into the mouth and advanced under direct vision to the third part of duodenum. A careful inspection was made as the upper endoscope was withdrawn including a retroflexed examination of the proximal stomach; Findings and interventions are described below. Findings: Larynx:normal Esophagus: GE junction at 40 cm, diaphragm hiatus at 40 cm, normal mucosa, bx taken from GEJ, distal and proximal esophagus --balloon dilation done to 20 mm at UES and LEs, no tears seen Stomach: Mild erythema. Biopsies were obtained. Grade 2 flap valve on retroflexed examination of the cardia. Duodenum: Normal bulb and descending duodenum, Intervention: Biopsies as noted above, COLONOSCOPY Instrument: Olympus variable stiffness pediatric scope 190L Colonoscopy Monitoring: Vital signs and clinical assessment, continuous EKG monitoring, Pulse oximetry, Carbon Dioxide monitoring and blood pressure monitoring were done throughout the procedure. Colon withdrawal time was 8 minutes. Procedure: The patient was placed in the left lateral decubitis position and pre-procedure medications were administered. After a digital rectal examination of the ano-rectum, the video colonoscope was inserted into the rectum and advanced through the colon to the cecum/TI. The colonoscope was slowly withdrawn in a retrograde panoramic fashion and the colon mucosa was carefully examined including a retroflexed view of the rectum. Findings and interventions are described below. Procedure Difficulty:moderate Findings: Terminal Ileum-normal Cecum: 4-5 mm sessile polyp removed with cold forceps Ascending Colon: 6-7 mm sessile polyp removed with cold snare Transverse Colon -normal Descending Colon:normal Sigmoid Colon: normal Rectum: Retroflexion with small internal hemorrhoids, grade I Anorectum - normal Colon preparation: Mobile Bowel Preparation Scale Right colon; 2 Transverse colon: 2 Left colon; 2 (0 = Unprepared colon segment with mucosa not seen due to solid stool that cannot be cleared. 1 = Portion of mucosa of the colon segment seen, but other areas of the colon segment not well seen due to staining, residual stool and/or opaque liquid. 2 = Minor amount of residual staining, small fragments of stool and/or opaque liquid, but mucosa of colon segment seen well. 3 = Entire mucosa of colon segment seen well with no residual staining, small fragments of stool or opaque liquid) Impression and Post Procedure Diagnosis: Endoscopy Findings: gastritis Colonoscopy Findings: colon polyps internal hemorrhoids Plan: Await Pathology results Repeat Colonoscopy in 5 years due to polyps or earlier if clinically indicated High fiber diet leaflet avoid straining at stool, epsom salts and sitz bath, anusol supps or cream GERD precautions, PPI compliance, Above findings were reviewed with the patient and relevant handouts were provided if indicated.
[2023-10-17 14:50] VITALS: BP 114/72; PULSE 105; RESP 16; TEMP 36.6; O2SAT 97
[2023-10-17 15:05] VITALS: BP 132/84; PULSE 99; RESP 16; O2SAT 96
[2023-10-17 15:20] VITALS: BP 155/101; PULSE 92; RESP 16; TEMP 36.8; O2SAT 97
== END 2023-10-17 15:36 | disposition home or self-care (01) ==
PROVIDERS: PCP Internal Medicine; Visit Provider Internal Medicine Gastroenterology
PROC: (CPT 45385; principal; 2023-10-17 14:10)
PROC: 0DJD8ZZ Inspection of Lower Intestinal Tract, Via Natural or Artificial Opening Endoscopic (ICD-10-PCS; CPT 45378; 2023-10-17 14:10)
DX: Z12.11 Encounter for screening for malignant neoplasm of colon (principal); Z86.010 Personal history of colon polyps; D12.0 Benign neoplasm of cecum; D12.2 Benign neoplasm of ascending colon; K64.0 First degree hemorrhoids; R13.10 Dysphagia, unspecified; K21.9 Gastro-esophageal reflux disease without esophagitis; K29.70 Gastritis, unspecified, without bleeding; K44.9 Diaphragmatic hernia without obstruction or gangrene; J44.9 Chronic obstructive pulmonary disease, unspecified; M62.08 Separation of muscle (nontraumatic), other site; I10 Essential (primary) hypertension; E78.00 Pure hypercholesterolemia, unspecified; E11.65 Type 2 diabetes mellitus with hyperglycemia; Z99.89 Dependence on other enabling machines and devices; G47.33 Obstructive sleep apnea (adult) (pediatric); Z79.51 Long term (current) use of inhaled steroids; Z79.899 Other long term (current) drug therapy; Z79.82 Long term (current) use of aspirin; Z79.4 Long term (current) use of insulin; Z79.85 Long-term (current) use of injectable non-insulin antidiabetic drugs; Z88.5 Allergy status to narcotic agent; Z88.8 Allergy status to other drugs, medicaments and biological substances; Z91.041 Radiographic dye allergy status
CPT/HCPCS: 45385; 45380; 43249; 43239; 82947; 88305; 88313; 88342; C1726; J1596; J2704

== ENCOUNTER → 2023-10-17 10:02 | Outpatient (BNV) | payer OTHER, SELFPAY | PROVIDERS: PCP Internal Medicine; Visit Provider Internal Medicine Gastroenterology | DX: Z12.11 Encounter for screening for malignant neoplasm of colon (principal); D12.0 Benign neoplasm of cecum; D12.2 Benign neoplasm of ascending colon; K64.0 First degree hemorrhoids; R13.10 Dysphagia, unspecified; K29.70 Gastritis, unspecified, without bleeding | CPT/HCPCS: 43239; 43249; 45380; 45385 ==

== ENCOUNTER 2023-11-10 10:14 | Outpatient (AMB) | payer OTHER, SELFPAY ==
--- NOTE | 2023-11-10 10:38 | A.OFFVIS_ITS ---
Vital Signs 11/10/23 10:40 Height 5 ft 8 in Weight 229 lb 15.074 oz BMI 35.0 BP 160/82 H Blood Pressure Location Lt brachial Position Sitting Pulse 78 Pulse Source Pulse Oximeter Intake Visit Reasons: T2DM Intake Note: Patient presents today for D2MT follow up visit. Last Diabetic Eye exam: 11/2022 Last Podiatry Visit: 05/2023 Random Glucose: 153 mg/dl HgA1c: 6.2% 09/27/23 Bacon Stringer Required: No Accompanied by: Self / Same As Patient Allergies iodine [Iodine] Allergy (Severe, Verified 11/10/23 10:43) Anaphylaxis lisinopril Allergy (Severe, Verified 11/10/23 10:43) Rash metformin Allergy (Severe, Verified 11/10/23 10:43) diarrhea meperidine [From Demerol] Allergy (Mild, Verified 11/10/23 10:43) RASH oxycodone [From Percocet] Adverse Reaction (Mild, Verified 11/10/23 10:43) MOUTH DRYNESS,RASH Mercury Detox Allergy (Severe, Uncoded 11/10/23 10:43) Throat closing (charcoal) Shellfish Allergy (Severe, Uncoded 11/10/23 10:43) Anaphylaxis Medication List - Last Reconciled 11/10/23 by Rae Oconnor PA-C albuterol sulfate 2.5 mg (3 mL) continuous nebulization QID PRN 30 days albuterol sulfate 90 mcg/actuation (Ventolin HFA) 2 puffs PO QID PRN 90 days alcohol swabs (BD Alcohol Swabs) 1 pad topical TID amlodipine 10 mg PO DAILY aspirin 81 mg PO DAILY azithromycin 250 mg PO 3XW bisacodyl (Dulcolax (bisacodyl)) 20 mg (4 x 5 mg) PO ONCE 1 day blood pressure monitor (Blood Pressure Kit) Take BP up to once daily and keep a log blood sugar diagnostic Use daily as directed to check blood glucose blood sugar diagnostic (FreeStyle Lite Strips) As directed tests 5 X/day blood-glucose meter Use daily As directed to check blood glucose blood-glucose meter (FreeStyle Lite Meter kit) As directed- To test blood sugar three times a day blood-glucose meter,continuous (FreeStyle Lola 3 [place]) Use daily As directed to monitor type 2 diabetes blood-glucose sensor (FreeStyle Lola 3 Sensor device) Apply every 14 days As directed blood-glucose sensor (FreeStyle Lola 3 Sensor device) use daily As directed to monitor type 2 diabetes. changed q 14 days budesonide 0.5 mg (2 mL) inhalation BID 30 days cholecalciferol (vitamin D3) 75 mcg PO .Q2days ciclopirox 8% 1 appl topical DAILY 4 weeks [COMPRESSION STOCKINGS (medium compression - 20 to 30 mm); Knee high As directed ] CPAP (CPAP Machine/Device) As directed cyclobenzaprine 10 mg PO BEDTIME PRN [DIABETIC SHOES with INSERTS As directed] diphenhydramine HCl (Benadryl) 25 mg PO TID PRN epinephrine (EpiPen 2-Dread) 0.3 mg (0.3 mL) IM Q4H PRN ezetimibe (Zetia) 10 mg PO DAILY [id number] 200-62.5-25 mcg (Trelegy Ellipta) 1 inh inhalation DAILY 30 days gabapentin 1 capsule BID and 2 capsules at bedtime orally -(4 capsules a day in total) 28 days [HIP BRACE (left hip) As directed] hydralazine 100 mg PO TID 90 days hydrochlorothiazide 25 mg PO DAILY insulin glargine (Lantus Solostar U-100 Insulin) 10 units (0.1 mL) subcut QPM ipratropium-albuterol 0.5 mg-3 mg(2.5 mg base)/3 mL 3 mL inhalation Q6H PRN lancets (FreeStyle Lancets) 28 gauge topical TID lancets (FreeStyle Lancets) As directed 4 X/day lancets Use daily As directed to check blood glucose latanoprost 0.005% 1 drp ophthalmic (eye) DAILY lorazepam 1 to 2 tablets orally twice a day as needed; PRN; 30 days montelukast 10 mg PO QPM nebulizer accessories tubing, mask, nebulizer cup, mouth piece nebulizers As directed olmesartan 40 mg PO DAILY omeprazole 40 mg PO DAILY pen needle, diabetic (BD Ultra-Fine Mini Pen Needle) As directed 1x daily. polyethylene glycol 3350 (Miralax) 238 grams PO ONCE 1 day prednisone 40 mg (2 x 20 mg) PO DAILY prednisone 10 mg PO DAILY 9 days [PULSE OXIMETER As directed] sildenafil 50 mg PO DAILY PRN tamsulosin 0.4 mg PO DAILY 90 days [THERMOMETER As directed] zolpidem 10 mg PO BEDTIME PRN 30 days HPI HPI T2DM: Details: Patient is a 58-year-old male with a significant past medical history of insulin-dependent type 2 diabetes, hyperlipidemia, hypertension, COPD with asth ma overlap presenting today for a diabetic follow-up. Endo: His last A1c was 6.2. He is on 10 units of Lantus, mounjaro 2..5 mg q weekly. States that he is tolerating mounjaro well but wants a higher dose for more appetite suppression. cgm-reviewed on his phone today his freestyle Lola shows that he is using it 96%. He is within range 84%, 16% hyperglycemic. No hypoglycemia or very hyperglycemic events. -denies any low blood sugars. Would correct this with juice. -he does have ongoing peripheral neuropathy and does monitor his feet daily. He is on gabapentin. He follows with Podiatry. CV: Blood pressure today in the office is 160/82. He is on amlodipine 10 mg, hydralazine 100 mg t.i.d., hydrochlorothiazide 25 mg and olmesartan 40 mg daily. Cholesterol is controlled with Zetia 10 mg. -he states blood pressures have been higher today because he has not had taking his hydralazine. No chest pain or shortness a breath. [facility] Medical History (Updated 10/09/23 @ 16:32 by Ijeoma Mark RN) Laryngospasm Chronic bronchitis Supplemental oxygen dependent Onychomycosis Diabetes Hx of fracture of fibula GERD without esophagitis Asthma-COPD overlap syndrome Diastasis recti Laryngospasm JOSÉ (obstructive sleep apnea) Bursitis Low back pain Claustrophobia GERD (gastroesophageal reflux disease) Hemoptysis Anxiety Insomnia Migraine Pure hypercholesterolemia Benign essential hypertension Type 2 diabetes mellitus with hyperglycemia, without long-term current use of insulin Stasis edema of both lower extremities Lumbar degenerative disc disease Obesity (BMI 30-39.9) Chronic rhinitis Hiatal hernia Erectile dysfunction Asthma Surgical History (Updated 10/09/23 @ 16:23 by Ijeoma Mark, FRIDA) History of bronchoscopy History of endoscopy Hx of colonoscopy Hx of cardiac catheterization History of nasal surgery History of carpal tunnel surgery Family History Father No problems noted. Mother Chronic kidney disease (CKD) Heart attack Other Mental health problem Social History (Updated 10/09/23 @ 16:22 by Ijeoma Mark RN) Household Members: Spouse, Family and Children Household Members Other:: , kids Housing: House Are you a primary career and guidance counselor to a significant other at home: No Do you presently have visiting nurse or other home services: No Alcohol intake: never Patient Tobacco Use Status: Never used Tobacco e-Cigarette/Vaping Use: Never Used Second Hand Smoke Exposure: Yes (employees smoked atwork) service: No Current occupational status: disabled Cognitive needs: No Hearing needs: No Vision needs: No Physical Exam Const Orientation/consciousness: patient oriented x3 Neck Thyroid: Thyroid normal Lymphatic: no lymphadenopathy noted Resp Auscultation: clear to auscultation bilaterally Cardio Rate: regular rate Rhythm: regular rhythm Heart sounds: S1 normal heart sound present and S2 normal heart sound present Skin General skin exam: no rashes or lesions noted Neuro General: patient oriented x3, gait normal and no focal motor deficits Extrem Other: DP pulses present. Normal capillary refill. Vibratory sensation intact. Mo nofilament sensation is diminished bilaterally Thickened, yellowish toenails noted. Results Reviewed Results Reviewed: Laboratory Tests 06/06/23 10/02/23 10/17/23 12:44 21:11 13:17 Sodium 141 Potassium 3.9 Chloride 108 Carbon Dioxide 24 Anion Gap 13 BUN 23 H Creatinine 1.19 Estim Creat Clear Calc 77.4 Estimated GFR > 60 POC Glucose 148 H Random Glucose 175 H AST 23 ALT 29 Triglycerides 101 Cholesterol 143 LDL Cholesterol, Calc 91 HDL Cholesterol 32 L Urine Creatinine 146.62 Urine Microalbumin 5.0 Microalb/Creat Ratio 3.4 Assessment & Plan Assessment & Plan (1) Type 2 diabetes mellitus with hyperglycemia, without long-term current use of insulin: Code(s): E11.65 - Type 2 diabetes mellitus with hyperglycemia Category: Medical Plan: Diabetes is better controlled. Will increase mounjaro. continue lantus. He will notify me if he develops any hypoglycemia. I have encouraged him to continue with diet and exercise. (2) Benign essential hypertension: Code(s): I10 - Essential (primary) hypertension Category: Medical Plan: Advised blood pressure above goal today. Monitor at home. Follow-up with PCP if blood pressures are truly elevated. Patient understands and agrees with this plan. Coding Level of Care Code Est Pt Level 4 (98680) Diagnoses Type 2 diabetes mellitus with hyperglycemia, without long-term current use of insulin E11.65 Benign essential hypertension I10
[2023-11-10 10:40] VITALS: BP 160/82; PULSE 78; BMI 35.0
[2023-11-10 10:49] LABS: Glucose, Whole Blood 153 mg/dL (60-115)
== END 2023-11-10 11:14 | disposition home or self-care (01) ==
PROVIDERS: PCP Internal Medicine; Visit Provider Physician Assistant
DX: E11.65 Type 2 diabetes mellitus with hyperglycemia (principal); I10 Essential (primary) hypertension
CPT/HCPCS: 99214

== ENCOUNTER → 2023-11-10 10:14 | Outpatient (BNVA) | payer OTHER, SELFPAY | PROVIDERS: PCP Internal Medicine; Visit Provider Physician Assistant | DX: E11.65 Type 2 diabetes mellitus with hyperglycemia (principal); I10 Essential (primary) hypertension | CPT/HCPCS: 82947; 99212 ==

== ENCOUNTER 2023-12-02 18:36 | Emergency (ER) | payer OTHER, SELFPAY ==
[2023-12-02 18:51] VITALS: BP 176/90; PULSE 90; RESP 18; TEMP 36.8; O2SAT 96; BMI 35.2
--- NOTE | 2023-12-02 18:55 | ED.GENADULT ---
HPI - General Adult General Chief complaint: ETOH/Substance Use Stated complaint: ate edible feel numbness in face and hands' Time Seen by Provider: 12/02/23 19:09 Source: patient and family (Son) Mode of arrival: ambulatory Limitations: no limitations History of Present Illness ED Provider: Dr. Akbar Forrester HPI narrative: 58-year-old male with a history of depression, hypertension, asthma, COPD, who presents emergency department for evaluation of feeling ill after eating a 7000 mg edible gummy at 18:00 hours. Patient was complaining of feeling spaced out, numbness in his face, arms and feet. Vital signs revealed an elevated blood pressure otherwise unremarkable. Physical examination is consistent with anxiety and Patient states that his friend gave him an edible but he did not now strongly edible was. He states that he ate at around 18:00 hours. He states he currently is feeling ill. He states he was feeling shaky, he states that his face, hands and arms are numb. He states he feels very space out. Patient states he does not usually eat THC edibles. Related Data Home Medications ?Medication ?Instructions ?Recorded ?Confirmed aspirin 81 mg tablet,delayed 81 mg PO DAILY 02/18/20 11/10/23 release CPAP (CPAP Machine/Device) 11/19/21 11/10/23 cholecalciferol (vitamin D3) 25 75 mcg PO .Q204/19/22 11/10/23 mcg (1,000 unit) capsule Previous Rx's ?Medication ?Instructions ?Recorded amlodipine 10 mg tablet 10 mg PO DAILY #90 tabs 05/11/20 budesonide 0.5 mg/2 mL suspension 0.5 mg (2 mL) inhalation BID 30 11/17/20 for nebulization days #120 mL PULSE OXIMETER #1 ea 08/26/21 HIP BRACE (left hip) #1 ea 09/28/21 THERMOMETER #1 ea 09/28/21 ezetimibe 10 mg tablet (Zetia) 10 mg PO DAILY #90 tabs 11/24/21 latanoprost 0.005 % eye drops 1 drp ophthalmic (eye) DAILY #7.5 11/24/21 mL lancets 28 gauge (FreeStyle 28 gauge topical TID #300 ea 03/01/22 Lancets) COMPRESSION STOCKINGS (medium #3 ea 12/15/22 compression - 20 to 30 mm); Knee high epinephrine 0.3 mg/0.3 mL 0.3 mg (0.3 mL) IM Q4H PRN 05/27/22 injection, auto-injector (EpiPen anaphylaxis #2 ea 2-Dread) blood pressure monitor (Blood #1 ea 07/26/22 Pressure Kit) diphenhydramine HCl 25 mg capsule 25 mg PO TID PRN allergic reaction 09/24/22 (Benadryl) #20 caps albuterol sulfate 2.5 mg/3 mL 2.5 mg (3 mL) continuous 12/14/22 (0.083 %) solution for nebulization nebulization QID PRN shortness of breath or wheezing 30 days #480 mL nebulizer accessories #1 ea 12/22/22 nebulizers #1 ea 12/22/22 insulin glargine 100 unit/mL (3 10 unit (0.1 mL) subcut QPM #15 mL 02/17/23 mL) subcutaneous pen (Lantus Solostar U-100 Insulin) DIABETIC SHOES with INSERTS #2 ea 05/23/23 lorazepam 0.5 mg tablet See Rx Instructions .Route 05/23/23 .COMPLEX PRN anxiety 30 days #60 tabs tamsulosin 0.4 mg capsule 0.4 mg PO DAILY 90 days #90 caps 06/21/23 pen needle, diabetic 31 gauge x #50 ea 07/10/23/ (BD Ultra-Fine Mini Pen Needle) cyclobenzaprine 10 mg tablet 10 mg PO BEDTIME PRN muscle spasm 07/12/23 #5 tabs ciclopirox 8 % topical solution 1 appl topical DAILY 4 weeks #6.6 08/07/23 mL sildenafil 50 mg tablet 50 mg PO DAILY PRN sexual activity 08/18/23 #10 tabs alcohol swabs (BD Alcohol Swabs) 1 pad topical TID for diabetes 09/15/23 mellitus #300 pad blood sugar diagnostic #100 ea 09/15/23 lancets #100 ea 09/15/23 blood sugar diagnostic (FreeStyle #100 ea 09/20/23 Lite Strips) blood-glucose meter,continuous #1 ea 09/25/23 (FreeStyle Lola 3 [place]) blood-glucose sensor (FreeStyle #2 ea 09/25/23 Lola 3 Sensor device) lancets 28 gauge (FreeStyle #100 ea 09/25/23 Lancets) blood-glucose meter #1 ea 09/27/23 blood-glucose meter (FreeStyle #1 ea 09/27/23 Lite Meter kit) hydrochlorothiazide 25 mg tablet 25 mg PO DAILY #90 tabs 09/27/23 olmesartan 40 mg tablet 40 mg PO DAILY #90 tabs 09/27/23 omeprazole 40 mg capsule,delayed 40 mg PO DAILY #30 caps 09/27/23 release prednisone 20 mg tablet 40 mg (2 x 20 mg) PO DAILY #8 tabs 10/03/23 bisacodyl 5 mg tablet,delayed 20 mg (4 x 5 mg) PO ONCE 1 day #4 10/09/23 release (Dulcolax (bisacodyl)) tabs polyethylene glycol 3350 17 238 g PO ONCE 1 day #238 grams 10/09/23 gram/dose oral powder (Miralax) gabapentin 400 mg capsule See Rx Instructions PO .COMPLEX 28 10/26/23 days #112 caps hydralazine 100 mg tablet 100 mg PO TID 90 days #270 tabs 10/26/23 blood-glucose sensor (FreeStyle #2 ea 11/08/23 Lola 3 Sensor device) albuterol sulfate 90 mcg/actuation 2 puff PO QID PRN shortness of 11/16/23 aerosol inhaler (Ventolin HFA) breath or wheezing 90 days #3 multiple units fluticasone fur. 200 mcg-umeclid 1 inh inhalation DAILY 30 days #60 11/16/23 62.5 mcg-vilant 25 mcg ea inhalat.powder (Trelegy Ellipta) ipratropium 0.5 mg-albuterol 3 mg 3 ml inhalation Q6H PRN shortness 11/16/23 (2.5 mg base)/3 mL nebulization of breath or wheezing #180 mL soln azithromycin 250 mg tablet 250 mg PO 3XW #12 tabs 11/22/23 montelukast 10 mg tablet 10 mg PO QPM #90 tabs 11/22/23 tirzepatide 5 mg/0.5 mL 5 mg (0.5 mL) subcut QWEEK #2 mL 11/27/23 subcutaneous pen injector (Michelle) blood-glucose sensor (FreeStyle #2 ea 12/01/23 Lola 3 Plus Sensor device) prednisone 10 mg tablet 10 mg PO DAILY 9 days #18 tabs 12/01/23 zolpidem 10 mg tablet 10 mg PO BEDTIME PRN insomnia 30 12/01/23 days #30 tabs Allergies Allergy/AdvReac Type Severity Reaction Status Date / Time iodine [Iodine] Allergy Severe Anaphylaxis Verified 12/02/23 18:53 lisinopril Allergy Severe Rash Verified 12/02/23 18:53 metformin Allergy Severe diarrhea Verified 12/02/23 18:53 meperidine [From Demerol] Allergy Mild RASH Verified 12/02/23 18:53 oxycodone [From Percocet] AdvReac Mild MOUTH Verified 12/02/23 18:53 DRYNESS,RASH [facility] Detox Allergy Severe Throat Uncoded 11/10/23 10:43 closing (charcoal) Shellfish Allergy Severe Anaphylaxis Uncoded 11/10/23 10:43 Review of Systems Review of Systems: Yes all other systems are reviewed and are negative PMFSH Past Medical History Medical History (Updated 12/02/23 @ 20:43 by Akbar Forrester MD) Laryngospasm Chronic bronchitis Supplemental oxygen dependent Onychomycosis Diabetes Hx of fracture of fibula GERD without esophagitis Asthma-COPD overlap syndrome Diastasis recti Laryngospasm JOSÉ (obstructive sleep apnea) Bursitis Low back pain Claustrophobia GERD (gastroesophageal reflux disease) Hemoptysis Anxiety Insomnia Migraine Pure hypercholesterolemia Benign essential hypertension Type 2 diabetes mellitus with hyperglycemia, without long-term current use of insulin Stasis edema of both lower extremities Lumbar degenerative disc disease Obesity (BMI 30-39.9) Chronic rhinitis Hiatal hernia Erectile dysfunction Asthma Surgical History History of bronchoscopy History of endoscopy Hx of colonoscopy Hx of cardiac catheterization History of nasal surgery History of carpal tunnel surgery Family History Family History Father No problems noted. Mother Chronic kidney disease (CKD) Heart attack Other Mental health problem Social History Social History Household Members: Spouse, Family and Children Household Members Other:: , kids Housing: House Are you a primary home health care social worker to a significant other at home: No Do you presently have visiting nurse or other home services: No Alcohol intake: never Patient Tobacco Use Status: Never used Tobacco e-Cigarette/Vaping Use: Never Used Second Hand Smoke Exposure: Yes (employees smoked atwork) Advance Directives: No Advance Directives Information Provided: No Do you have a plan to hurt others: No Plan service: No Current occupational status: disabled Cognitive needs: No Hearing needs: No Vision needs: No Physical Exam ED Vital Signs: Vital Signs - 24 hr 12/02/23 18:51 Temperature 98.2 F Pulse Rate 90 Respiratory Rate 18 Blood Pressure 176/90 H Pulse Oximetry 96 Oxygen Delivery Method Room Air BMI result Body Mass Index 35.2 Patient's vital signs revealed an elevated blood pressure of 176/90 Exam: General: Awake, alert, patient appears anxious, answers questions appropriately but it was staring off into space and blanks out occasionally when trying to answer question Head: Normocephalic, atraumatic EENT: PERRL, Lids normal, sclera normal, conjunctiva normal, nose normal , ears normal, throat without erythema or exudates Neck: Supple, no adenopathy Lung: breath sounds symmetric, no wheezing, rales or rhonchi Chest: symmetric movement, nontender Heart: regular rate and rhythm, normal S1, S2 no murmurs or rubs Abdomen: soft, non-tender, nondistended, normal bowel sounds Back: no vertebral tenderness, no CVAT Extremities: no deformities, moves all extremities symmetrically Neuro: Awake, alert, oriented, normal speech, cranial nerves intact, moves all extremities symmetrically Psych: Pleasant, cooperative Course Course Course Narrative: Patient is a 58-year-old male presents emergency department for evaluation. Reports that he took an edible and now has full body numbness, shaking chills, feels that his mouth is very dry. He was very anxious. When asked further he believes there may have been any other drug contents within this he states he does not know. Medications Administered Discontinued Medications Generic Name Dose Route Start Last Admin Trade Name Freq PRN Reason Stop Dose Admin Lorazepam 2 mg 12/02/23 19:18 12/02/23 19:35 Lorazepam 1 Mg Tablet PO 12/02/23 19:19 2 mg ONCE STA Administration Medical Decision Making Medical Decision Making MDM Narrative: 58-year-old male with a history of depression, hypertension, asthma, COPD, who presents emergency department for evaluation of feeling ill after eating a 7000 mg edible gummy at 18:00 hours. Patient was complaining of feeling spaced out, his face, hands and feet are numb. Vital signs did reveal an elevated blood pressure otherwise unremarkable. Physical examination is consistent with anxiety and psychoactive effects of THC. His neurologic exam was otherwise normal. Differential diagnosis: ?Includes but is not limited to anxiety, panic attack, psychoactive effects of THC Laboratory evaluation: Urine tox screen Course: 19:34 Patient's exam and presentation is consistent with THC overdose causing anxiety and having a psychoactive effect and the patient this is not take THC edibles frequently. Patient was ordered to get Ativan 2 mg orally. Patient will be observed in the emergency department until he is feeling better. 20:39 Patient's tox screen was positive for THC only. Patient is feeling better but did require a another dose of Ativan 1 mg orally. At this time I think that the patient can be discharged home. His son is here and states that he will take him home . Told the patient that he should go to bed and rest for the rest of the evening. I did tell the patient that he should not take any medications that are not prescribed for him or marijuana products that he did not purchase by himself from a dispensary. Admission/Observation Consideration of admission/observation: Escalation of care including admission/observation considered (No) Lab Data MDM Lab Attestation statement: I reviewed the patient's lab results. My interpretation of the patient's laboratory evaluation is as follows: Urine drug screen was positive for THC only Labs: Lab Results 12/02/23 12/02/23 Range/Units 19:00 19:20 Urine Opiates Screen Not Detected (Not Detect) Ur Buprenorphine Scrn Not Detected (Not Detect) ng/mL Ur Oxycodone Screen Not Detected (Not Detect) ng/mL Urine Methadone Screen Not Detected (Not Detect) ng/mL Urine Fentanyl Screen Not Detected (Not Detect) Ur Barbiturates Screen Not Detected (Not Detect) Ur Phencyclidine Scrn Not Detected (Not Detect) Ur Amphetamines Screen Not Detected (Not Detect) U Benzodiazepines Scrn Not Detected (Not Detect) Urine Cocaine Screen Not Detected (Not Detect) U Marijuana (THC) Screen POSITIVE H (Not Detect) Influenza Type A (PCR) NEGATIVE (Negative) Influenza Type B (PCR) NEGATIVE (Negative) RSV RNA Qual (PCR) NEGATIVE (Negative) SARS-CoV-2 RNA (RT-PCR) NEGATIVE (Negative) Independent Historian Clinical information obtained from an independent historian. History obtained from or confirmed by: Other (Son) Chronic Conditions Patient?s care impacted by: Diabetes and Hypertension Discharge Plan Discharge Clinical Impression: Cannabis overdose Qualifiers: Encounter type: initial encounter Injury intent: accidental or unintentional Qualified Code(s): T40.711A - Poisoning by cannabis, accidental (unintentional), initial encounter Patient Disposition: Home, Self-Care Additional Instructions: Your urine drug screen was positive for THC (marijuana) only. You were treated with Ativan 2 mg and Ativan 1 mg orally. This medication should help you calm down. You should go home and go to bed and rest for the rest of the evening. It is important that you do not take any medications that are not prescribed for you. Also you should not take any illicit drugs including marijuana unless you purchase the marijuana from a license dispensary. A single pill or any street drug can be contaminated with fentanyl and 1 pill or 1 dose can cause you to stop breathing and . Continue your medications as prescribed by your providers Follow-up with your doctor in 2 days. Please return to the emergency department if your symptoms get worse or if you develop any symptoms that are concerning to you. Prescriptions: No Action budesonide 0.5 mg/2 mL suspension for nebulization 0.5 mg inhalation BID 30 Days Qty: 120 6RF (DME) PULSE OXIMETER See Rx Instructions .Route .MEDSUPPLY Qty: 1 0RF Rx Instructions: As directed (DME) HIP BRACE (left hip) See Rx Instructions .Route .MEDSUPPLY Qty: 1 0RF Rx Instructions: As directed (DME) THERMOMETER See Rx Instructions .Route .MEDSUPPLY Qty: 1 0RF Rx Instructions: As directed ezetimibe [Zetia] 10 mg tablet 10 mg PO DAILY Qty: 90 3RF latanoprost 0.005 % drops 1 drp ophthalmic (eye) DAILY Qty: 7.5 3RF Rx Instructions: as directed lancets [FreeStyle Lancets] 28 gauge misc 28 gauge topical TID Qty: 300 11RF epinephrine [EpiPen 2-Dread] 0.3 mg/0.3 mL auto-injector 0.3 mg IM Q4H PRN (Reason: anaphylaxis) Qty: 2 0RF (DME) blood pressure monitor [Blood Pressure Kit] Kit See Rx Instructions .Route Qty: 1 0RF Rx Instructions: Take BP up to once daily and keep a log albuterol sulfate 2.5 mg /3 mL (0.083 %) solution for nebulization 2.5 mg continuous nebulization QID PRN (Reason: shortness of breath or wheezing) 30 Days Qty: 480 5RF (DME) nebulizers Mis See Rx Instructions .Route Qty: 1 0RF Rx Instructions: As directed (DME) nebulizer accessories Misc See Rx Instructions .ROUTE .MEDSUPPLY Qty: 1 11RF Rx Instructions: tubing, mask, nebulizer cup, mouth piece insulin glargine [Lantus Solostar U-100 Insulin] 100 unit/mL (3 mL) insulin pen 10 unit subcut QPM Qty: 15 2RF tamsulosin 0.4 mg capsule 0.4 mg PO DAILY 90 Days Qty: 90 1RF (DME) pen needle, diabetic [BD Ultra-Fine Mini Pen Needle] 31 gauge x 3/16 needle See Rx Instructions miscellaneous .MEDSUPPLY Qty: 50 12RF Rx Instructions: As directed 1x daily. sildenafil 50 mg tablet 50 mg PO DAILY PRN (Reason: sexual activity) Qty: 10 1RF alcohol swabs [BD Alcohol Swabs] Pads, Medicated 1 pad topical TID Qty: 300 0RF (DME) [place] [facility] [place] .Route Qty: 100 3RF Rx Instructions: Use daily As directed to check blood glucose (DME) blood sugar diagnostic Strip See Rx Instructions .Route Qty: 100 2RF Rx Instructions: Use daily as directed to check blood glucose (DME) FreeStyle Lite Strips Strip See Rx Instructions .Route Qty: 100 12RF Rx Instructions: As directed tests 5 X/day (DME) FreeStyle Lola 3 Sensor Device See Rx Instructions .ROUTE .MEDSUPPLY Qty: 2 11RF Rx Instructions: use daily As directed to monitor type 2 diabetes. changed q 14 days (DME) FreeStyle Lola 3 [place] Mis See Rx Instructions .ROUTE .MEDSUPPLY Qty: 1 0RF Rx Instructions: Use daily As directed to monitor type 2 diabetes (DME) lancets [FreeStyle Lancets] 28 gauge misc See Rx Instructions .Route Qty: 100 4RF Rx Instructions: As directed 4 X/day (DME) blood-glucose meter Kit See Rx Instructions .Route Qty: 1 0RF Rx Instructions: Use daily As directed to check blood glucose (DME) blood-glucose meter [FreeStyle Lite Meter] Kit See Rx Instructions .Route Qty: 1 0RF Rx Instructions: As directed- To test blood sugar three times a day olmesartan 40 mg tablet 40 mg PO DAILY Qty: 90 0RF hydrochlorothiazide 25 mg tablet 25 mg PO DAILY Qty: 90 0RF omeprazole 40 mg capsule,delayed release(DR/EC) 40 mg PO DAILY Qty: 30 6RF bisacodyl [Dulcolax (bisacodyl)] 5 mg tablet,delayed release (DR/EC) 20 mg PO ONCE 1 Days Qty: 4 0RF Rx Instructions: the day before colonoscopy take 2 pills at 12pm and 2 pills at 5pm polyethylene glycol 3350 [Miralax] 17 gram/dose powder 238 g PO ONCE 1 Days Qty: 238 0RF Rx Instructions: the day before your procedure mix entire bottle with 64oz of a clear liquid.Start drinking this at 5pm 1 cup every 15mintes until half is gone. Finish drinking remaining prep at 10pm hydralazine 100 mg tablet 100 mg PO TID 90 Days Qty: 270 3RF gabapentin 400 mg capsule See Rx Instructions PO .COMPLEX 28 Days Qty: 112 1RF Rx Instructions: 1 capsule BID and 2 capsules at bedtime orally -(4 capsules a day in total) (DME) FreeStyle Lola 3 Sensor Device See Rx Instructions .Route Qty: 2 11RF Rx Instructions: Apply every 14 days As directed albuterol sulfate [Ventolin HFA] 90 mcg/actuation HFA aerosol inhaler 2 puff PO QID PRN (Reason: shortness of breath or wheezing) 90 Days Qty: 3 3RF ipratropium-albuterol 0.5 mg-3 mg(2.5 mg base)/3 mL solution for nebulization 3 ml inhalation Q6H PRN (Reason: shortness of breath or wheezing) Qty: 180 11RF Trelegy Ellipta 200-62.5-25 mcg blister with device 1 inh inhalation DAILY 30 Days Qty: 60 12RF azithromycin 250 mg tablet 250 mg PO 3XW Qty: 12 0RF montelukast 10 mg tablet 10 mg PO QPM Qty: 90 0RF Mounjaro 5 mg/0.5 mL pen injector 5 mg subcut QWEEK Qty: 2 3RF zolpidem 10 mg tablet 10 mg PO BEDTIME PRN (Reason: insomnia) 30 Days Qty: 30 3RF prednisone 10 mg tablet 10 mg PO DAILY 9 Days Qty: 18 0RF Rx Instructions: 10 mg 3 tabs x 3 days 2 tabs x 3 days 1 tab x 3 days (DME) FreeStyle Lola 3 Plus Sensor Device See Rx Instructions .Route Qty: 2 11RF Rx Instructions: use daily As directed to monitor blood glucose cyclobenzaprine 10 mg tablet 10 mg PO BEDTIME PRN (Reason: muscle spasm) Qty: 5 0RF diphenhydramine HCl [Benadryl] 25 mg capsule 25 mg PO TID PRN (Reason: allergic reaction) Qty: 20 0RF prednisone 20 mg tablet 40 mg PO DAILY Qty: 8 0RF aspirin 81 mg tablet,delayed release (DR/EC) 81 mg PO DAILY (DME) COMPRESSION STOCKINGS (medium compression - 20 to 30 mm); Knee high medium compression See Rx Instructions .Route .MEDSUPPLY Qty: 3 11RF Rx Instructions: As directed lorazepam 0.5 mg tablet See Rx Instructions .ROUTE .COMPLEX PRN (Reason: anxiety) 30 Days Qty: 60 0RF Rx Instructions: 1 to 2 tablets orally twice a day as needed; PRN; (DME) DIABETIC SHOES with INSERTS See Rx Instructions .Route .MEDSUPPLY Qty: 2 0RF Rx Instructions: As directed amlodipine 10 mg tablet 10 mg PO DAILY Qty: 90 1RF (DME) CPAP Machine/Device Device See Rx Instructions .Route Rx Instructions: As directed cholecalciferol (vitamin D3) 25 mcg (1,000 unit) capsule 75 mcg PO .Q2days ciclopirox 8 % solution 1 appl topical DAILY 28 Days Qty: 6.6 5RF Print Language: [place] Citizen
[2023-12-02 19:26] LABS: Amphetamine Screen Urine Not Detected (Not Detect); Barbiturates, Urine Not Detected (Not Detect); Benzodiazepines Screen Urine Not Detected (Not Detect); Buprenorphine Scr Not Detected (Not Detect); Cannabinoid Screen Urine POSITIVE (Not Detect); Cocaine Screen Urine Not Detected (Not Detect); Fentanyl, urine Not Detected (Not Detect); Methadone Screen, Urine Not Detected (Not Detect); Opiate Screen Urine Not Detected (Not Detect); Oxycodone Screen Urine Not Detected (Not Detect); Phencyclidine Screen Urine Not Detected (Not Detect)
[2023-12-02] MEDS: LORazepam 1 MG TABLET 2 MG PO (19:35)
[2023-12-02 20:14] LABS: Influenza A PCR NEGATIVE (Negative); Influenza B PCR NEGATIVE (Negative); Resp Syncy Virus RNA Qual PCR NEGATIVE (Negative); SARS COV2 PCR INHOUSE NEGATIVE (Negative)
[2023-12-02 20:46] VITALS: BP 136/73; PULSE 80; RESP 18; TEMP 36.8; O2SAT 97
[2023-12-02 20:49] VITALS: BP 176/90; PULSE 90; RESP 18; TEMP 36.8; O2SAT 96
[2023-12-02] MEDS: LORazepam 1 MG TABLET PO (20:52)
== END 2023-12-02 20:54 | disposition home or self-care (01) ==
PROVIDERS: Nurse Practitioner Family; Emergency Provider Emergency Medicine Emergency Medical Services; PCP Internal Medicine
DX: T40.711A Poisoning by cannabis, accidental (unintentional), initial encounter (principal); F41.9 Anxiety disorder, unspecified; Y92.9 Unspecified place or not applicable; Z03.818 Encounter for observation for suspected exposure to other biological agents ruled out; E11.9 Type 2 diabetes mellitus without complications; I10 Essential (primary) hypertension; E78.00 Pure hypercholesterolemia, unspecified; J45.909 Unspecified asthma, uncomplicated; Z79.4 Long term (current) use of insulin; Z79.899 Other long term (current) drug therapy; Z79.82 Long term (current) use of aspirin
CPT/HCPCS: 0241U; 80307; 99283

== ENCOUNTER 2023-12-02 21:05 | Emergency (ER) | payer OTHER, SELFPAY ==
[2023-12-02 21:18] VITALS: BP 162/68; PULSE 80; RESP 16; TEMP 36.4; O2SAT 96; BMI 34.2
--- NOTE | 2023-12-02 22:00 | PC.NURSE ---
pt seen by MD livingston in triage room @21:20 as he was just discharged by MD minutes prior to second check-in. per MD pt requires no further medical workup however told him he is welcome to sleep here if he wishes when patient called back from [facility] to go to tx room pt was not in [facility]
== END 2023-12-03 01:18 | disposition left against medical advice (07) ==
LOC: HO.ED 12-03 01:07
PROVIDERS: Emergency Provider Emergency Medicine; PCP Internal Medicine
DX: R11.2 Nausea with vomiting, unspecified (principal)
CPT/HCPCS: 99281

== ENCOUNTER 2024-01-24 09:05 | Outpatient (AMB) | payer OTHER, SELFPAY ==
--- NOTE | 2024-01-24 09:07 | A.OFFVIS_ITS ---
Vital Signs 01/24/24 09:08 Weight 227 lb 1.218 oz BP 138/90 H Blood Pressure Location Rt brachial Position Sitting Pulse 93 Pulse Source Pulse Oximeter Pulse Oximetry (%) 97 Oxygen Delivery Method Room Air Intake Visit Reasons: Asthma Allergies iodine [Iodine] Allergy (Severe, Verified 01/24/24 09:13) Anaphylaxis lisinopril Allergy (Severe, Verified 01/24/24 09:13) Rash metformin Allergy (Severe, Verified 01/24/24 09:13) diarrhea meperidine [From Demerol] Allergy (Mild, Verified 01/24/24 09:13) RASH oxycodone [From Percocet] Adverse Reaction (Mild, Verified 01/24/24 09:13) MOUTH DRYNESS,RASH Mercury Detox Allergy (Severe, Uncoded 01/24/24 09:13) Throat closing (charcoal) Shellfish Allergy (Severe, Uncoded 01/24/24 09:13) Anaphylaxis Medication List - Last Reconciled 01/24/24 by Susan France LPN albuterol sulfate 2.5 mg (3 mL) continuous nebulization QID PRN 30 days albuterol sulfate 90 mcg/actuation (Ventolin HFA) 2 puffs PO QID PRN 90 days alcohol swabs (BD Alcohol Swabs) 1 pad topical TID amlodipine 10 mg PO DAILY aspirin 81 mg PO DAILY azithromycin 250 mg PO 3XW bisacodyl (Dulcolax (bisacodyl)) 20 mg (4 x 5 mg) PO ONCE 1 day blood pressure monitor (Blood Pressure Kit) Take BP up to once daily and keep a log blood sugar diagnostic Use daily as directed to check blood glucose blood sugar diagnostic (FreeStyle Lite Strips) As directed tests 5 X/day blood-glucose meter Use daily As directed to check blood glucose blood-glucose meter (FreeStyle Lite Meter kit) As directed- To test blood sugar three times a day blood-glucose meter,continuous (FreeStyle Lola 3 [place]) Use daily As directed to monitor type 2 diabetes blood-glucose sensor (FreeStyle Lola 3 Sensor device) Apply every 14 days As directed blood-glucose sensor (FreeStyle Lola 3 Sensor device) As directed blood-glucose sensor (FreeStyle Lola 3 Sensor device) use daily As directed to monitor type 2 diabetes. changed q 14 days blood-glucose sensor (FreeStyle Lola 3 Plus Sensor device) use daily As directed to monitor blood glucose budesonide 0.5 mg (2 mL) inhalation BID 30 days cholecalciferol (vitamin D3) 75 mcg PO .Q2days ciclopirox 8% 1 appl topical DAILY 4 weeks [COMPRESSION STOCKINGS (medium compression - 20 to 30 mm); Knee high As directed ] CPAP (CPAP Machine/Device) As directed cyclobenzaprine 10 mg PO BEDTIME PRN [DIABETIC SHOES with INSERTS As directed] diphenhydramine HCl (Benadryl) 25 mg PO TID PRN epinephrine (EpiPen 2-Dread) 0.3 mg (0.3 mL) IM Q4H PRN ezetimibe (Zetia) 10 mg PO DAILY ooscvbsmebo-lxzijkbou-vdlxqdvo 200-62.5-25 mcg (Trelegy Ellipta) 1 inh inhalation DAILY 30 days gabapentin 1 capsule BID and 2 capsules at bedtime orally -(4 capsules a day in total) 28 days [HIP BRACE (left hip) As directed] hydralazine 100 mg PO TID 90 days hydrochlorothiazide 25 mg PO DAILY insulin glargine (Lantus Solostar U-100 Insulin) 10 units (0.1 mL) subcut QPM ipratropium-albuterol 0.5 mg-3 mg(2.5 mg base)/3 mL 3 mL inhalation Q6H PRN lancets (FreeStyle Lancets) 28 gauge topical TID lancets (FreeStyle Lancets) As directed 4 X/day lancets Use daily As directed to check blood glucose latanoprost 0.005% 1 drp ophthalmic (eye) DAILY lorazepam 1 to 2 tablets orally twice a day as needed; PRN; 30 days montelukast 10 mg PO QPM nebulizer accessories tubing, mask, nebulizer cup, mouth piece nebulizers As directed olmesartan 40 mg PO DAILY omeprazole 40 mg PO DAILY pen needle, diabetic (BD Ultra-Fine Mini Pen Needle) As directed 1x daily. polyethylene glycol 3350 (Miralax) 238 grams PO ONCE 1 day prednisone 40 mg (2 x 20 mg) PO DAILY prednisone 10 mg PO DAILY 9 days [PULSE OXIMETER As directed] sildenafil 50 mg PO DAILY PRN tamsulosin 0.4 mg PO DAILY 90 days [THERMOMETER As directed] tirzepatide (Mounjaro) 5 mg (0.5 mL) subcut QWEEK zolpidem 10 mg PO BEDTIME PRN 30 days HPI Comments Details: The patient is a 58-year-old gentleman with history of reflux disease, hiatal hernia and uncontrolled asthma. He has had multiple exacerbations required prednisone. At least twice in the last month. He has had x-rays demonstrating no acute disease although he still having worsening respiratory symptoms specially at nighttime. He did have a CBC which is unremarkable. He has also had allergy testing in the past and he is allergic to multiple things. He has been taking antihistamines and leukotriene inhibitors without any significant improvement in his symptoms. Dealing the have some is prednisone. He also describes a chronic bronchitis with mucus production every night and congestion in the chest area. He does know about the reflux and continues try reflux diet. He does have a specialist for this. We talked about the importance of reflux therapy and also sleeping elevated to minimize micro aspirations into the lungs. Patient also has a hard time sleeping. He wakes up multiple times with shortness of breath. He also wakes up tired with headaches. His [place] score is elevated 10/24. The patient has never had a sleep study. He will have to get a sleep study at this time. 08/03/2023 the patient is here for a pulmonary follow-up visit. Overall the patient has been doing well from a respiratory status. Has been responding well to the Trelegy inhaler. He has no longer using Daliresp. He continues uses singular. In addition to that has not had any asthma flare-ups which is reassuring. The patient has been complaining of abdominal discomfort. He had an injury or trauma to his abdominal muscles and afterwards ended up with a lump in the abdomen. He went to the ER and was recommended he follow-up with his primary care doctor. I do believe he has a CT scan coming up in the next few weeks. In the meantime he is struggling with the CPAP. The mask was causing him to have ulcerations of the nasal bridge. Otherwise he has been using the oxygen for sleep. I did recommend he go back to the CPAP. I did have an F30 mask available that he can use. The patient should continue to use CPAP every night. I will try to send supplies if he does tolerate the F30 mask to the DME company in order for him to stay active with his usage and also with new supplies. 01/24/2024 the patient is here for a pulmonary follow-up visit. The patient overall is doing okay. He has been having issues while going through some family complex right now. His blood pressure has been slightly elevated because of that. He has been having hard time sleeping. He does use Ambien send to the pharmacy. He can also take some melatonin as well to try to help a little bit more. He has not been using the CPAP. He can not tolerate it. He has tried multiple masks and he has been fighting with it. Therefore, he finds that the oxygen is very helpful for him he does use it every night. Therefore he can discontinue the CPAP and just continue with oxygen supplementation at nighttime. He does not need any oxygen with activity at this time. The patient does uses respiratory inhalers as prescribed. Will follow-up in 6 months if he has any issues prior to that he will call for an earlier assessment. [facility] Medical History (Updated 12/08/23 @ 14:08 by Rae Oconnor PA-C) Laryngospasm Chronic bronchitis Supplemental oxygen dependent Onychomycosis Diabetes Hx of fracture of fibula GERD without esophagitis Asthma-COPD overlap syndrome Diastasis recti Laryngospasm JOSÉ (obstructive sleep apnea) Bursitis Low back pain Claustrophobia GERD (gastroesophageal reflux disease) Hemoptysis Anxiety Insomnia Migraine Pure hypercholesterolemia Benign essential hypertension Type 2 diabetes mellitus with hyperglycemia, without long-term current use of insulin Stasis edema of both lower extremities Lumbar degenerative disc disease Obesity (BMI 30-39.9) Chronic rhinitis Hiatal hernia Erectile dysfunction Asthma Surgical History History of bronchoscopy History of endoscopy Hx of colonoscopy Hx of cardiac catheterization History of nasal surgery History of carpal tunnel surgery Family History Father No problems noted. Mother Chronic kidney disease (CKD) Heart attack Other Mental health problem Social History Household Members: Spouse, Family and Children Household Members Other:: , kids Housing: House Are you a primary assurance services manager health care to a significant other at home: No Do you presently have visiting nurse or other home services: No Alcohol intake: never Patient Tobacco Use Status: Never used Tobacco e-Cigarette/Vaping Use: Never Used Second Hand Smoke Exposure: Yes (employees smoked atwork) service: No Current occupational status: disabled Cognitive needs: No Hearing needs: No Vision needs: No Review of Systems Const Denies chills, Reports difficulty sleeping, Reports fatigue, Denies fever(s), Reports headache(s) (on and off) and Reports weight gain ENT Denies dysphagia, Reports dizziness (occasional), Denies otalgia, Reports headache(s) (on and off), Denies odynophagia, Denies sinus pain and Denies sore throat Card Denies palpitations and Reports dyspnea on exertion (mild) Resp Reports cough, Reports dyspnea on exertion (mild) and Denies wheezing GI Denies constipation, Denies dysphagia, Reports dyspepsia, Reports heartburn, Denies diarrhea, Denies nausea, Denies odynophagia and Denies vomiting Reports erectile dysfunction (unable to tolerate Rx), Denies dysuria and Denies nocturia Musc Reports back pain (chronic - over the lower back), Reports arthralgias (left hip; increased pain and swelling over right wrist lately), Denies joint swelling and Reports tingling (on and off, in both hands and feet) Neuro Reports dizziness (occasional), Reports headache(s) (on and off) and Reports tingling (on and off, in both hands and feet) Psych Reports anxiety Endo Reports fatigue and Denies palpitations Aller/Immun Denies wheezing Physical Exam Vital Signs: Last Vital Signs Pulse 93 01/24/24 09:08 BP 138/90 H 01/24/24 09:08 Pulse Ox 97 01/24/24 09:08 Oxygen Delivery Method Room Air 01/24/24 09:08 Const General: cooperative, healthy appearing and comfortable Orientation/consciousness: patient oriented x3 Limitations: no limitations HEENT Head: Yes normocephalic Neck Neck: Yes normal visual inspection and Yes full ROM Chest Chest palpation & inspection: normal inspection of the chest Resp Effort & Inspection: normal respiratory effort and able to speak in complete sentences Auscultation: diminished lung sounds Cardio Rate: regular rate Rhythm: regular rhythm Heart sounds: normal S1 and S2 GI Palpation (GI): Soft to palpation Skin General skin exam: no rashes or lesions noted Neuro General: patient oriented x3 Extrem General: Yes no clubbing, cyanosis or edema Assessment & Plan Assessment & Plan (1) Asthma-COPD overlap syndrome: Code(s): J44.9 - Chronic obstructive pulmonary disease, unspecified Category: Medical (2) Hiatal hernia: Code(s): K44.9 - Diaphragmatic hernia without obstruction or gangrene Category: Medical Plan continue Trelegy 200mg DARÍO as needed continue Singulair stopped CPAP continue oxygen supplementation while sleeping sleep aid F/U 6 months Medications: New melatonin 5 mg PO BEDTIME PRN 30 tabs 11RF sleep Refilled zolpidem 10 mg PO BEDTIME PRN 30 tabs 3RF insomnia 30 days budesonide 0.5 mg (2 mL) inhalation BID 120 mL 6RF 30 days J45.901 - Unspecified asthma with (acute) exacerbation Coding Level of Care Code Est Pt Level 4 (93912) Diagnoses Asthma-COPD overlap syndrome J44.9 Hiatal hernia K44.9 Time Spent (min) 16
[2024-01-24 09:08] VITALS: BP 138/90; PULSE 93; O2SAT 97
== END 2024-01-24 09:29 | disposition home or self-care (01) ==
LOC: HO.HPS 09:05
PROVIDERS: PCP Internal Medicine; Visit Provider Hospitalist
DX: J44.9 Chronic obstructive pulmonary disease, unspecified (principal); K44.9 Diaphragmatic hernia without obstruction or gangrene
CPT/HCPCS: 99214

== ENCOUNTER → 2024-01-24 09:05 | Outpatient (BNVA) | payer OTHER, SELFPAY | PROVIDERS: PCP Internal Medicine; Visit Provider Hospitalist | DX: J44.9 Chronic obstructive pulmonary disease, unspecified (principal); K44.9 Diaphragmatic hernia without obstruction or gangrene; G47.33 Obstructive sleep apnea (adult) (pediatric); Z99.81 Dependence on supplemental oxygen | CPT/HCPCS: 99212 ==

== ENCOUNTER 2024-02-12 10:11 | Outpatient (AMB) | payer OTHER, SELFPAY ==
[2024-02-12 10:14] VITALS: BP 156/84; PULSE 76; BMI 34.0
--- NOTE | 2024-02-12 10:14 | A.OFFVIS_ITS ---
Vital Signs 02/12/24 10:14 Height 5 ft 8 in Weight 223 lb 12.307 oz BMI 34.0 BP 156/84 H Blood Pressure Location Lt brachial Position Sitting Pulse 76 Pulse Source Pulse Oximeter Intake Visit Reasons: DM/CONFIRMED Intake Note: Patient presents today for D2MT follow up visit. Last Diabetic Eye exam: 12/2023 Last Podiatry Visit: 11/2023 Random Glucose: 114 mg/dl HgA1c: Eligibility Services Representative Required: No Accompanied by: Self / Same As Patient Allergies iodine [Iodine] Allergy (Severe, Verified 02/12/24 10:22) Anaphylaxis lisinopril Allergy (Severe, Verified 02/12/24 10:22) Rash metformin Allergy (Severe, Verified 02/12/24 10:22) diarrhea meperidine [From Demerol] Allergy (Mild, Verified 02/12/24 10:22) RASH oxycodone [From Percocet] Adverse Reaction (Mild, Verified 02/12/24 10:22) MOUTH DRYNESS,RASH Mercury Detox Allergy (Severe, Uncoded 02/12/24 10:22) Throat closing (charcoal) Shellfish Allergy (Severe, Uncoded 02/12/24 10:22) Anaphylaxis Medication List - Last Reconciled 02/12/24 by Rae Oconnor PA-C albuterol sulfate 2.5 mg (3 mL) continuous nebulization QID PRN 30 days albuterol sulfate 90 mcg/actuation (Ventolin HFA) 2 puffs PO QID PRN 90 days alcohol swabs (BD Alcohol Swabs) 1 pad topical TID amlodipine 10 mg PO DAILY aspirin 81 mg PO DAILY azithromycin 250 mg PO 3XW bisacodyl (Dulcolax (bisacodyl)) 20 mg (4 x 5 mg) PO ONCE 1 day blood pressure monitor (Blood Pressure Kit) Take BP up to once daily and keep a log blood sugar diagnostic Use daily as directed to check blood glucose blood sugar diagnostic (FreeStyle Lite Strips) As directed tests 5 X/day blood-glucose meter Use daily As directed to check blood glucose blood-glucose meter (FreeStyle Lite Meter kit) As directed- To test blood sugar three times a day blood-glucose meter,continuous (FreeStyle Lola 3 [place]) Use daily As directed to monitor type 2 diabetes blood-glucose sensor (FreeStyle Lola 3 Sensor device) Apply every 14 days As directed blood-glucose sensor (FreeStyle Lola 3 Sensor device) As directed blood-glucose sensor (FreeStyle Lola 3 Sensor device) use daily As directed to monitor type 2 diabetes. changed q 14 days blood-glucose sensor (FreeStyle Lola 3 Plus Sensor device) use daily As directed to monitor blood glucose budesonide 0.5 mg (2 mL) inhalation BID 30 days cholecalciferol (vitamin D3) 75 mcg PO .Q2days ciclopirox 8% 1 appl topical DAILY 4 weeks [COMPRESSION STOCKINGS (medium compression - 20 to 30 mm); Knee high As directed ] CPAP (CPAP Machine/Device) As directed cyclobenzaprine 10 mg PO BEDTIME PRN [DIABETIC SHOES with INSERTS As directed] diphenhydramine HCl (Benadryl) 25 mg PO TID PRN epinephrine (EpiPen 2-Dread) 0.3 mg (0.3 mL) IM Q4H PRN ezetimibe (Zetia) 10 mg PO DAILY flash glucose scanning reader (FreeStyle Lola 2 [place]) use daily As directed to monitor blood glucose readings flash glucose sensor (FreeStyle Lola 2 Sensor kit) use daily As directed to monitor glucose srsowgqbhun-llfjvbsnj-cnqzbjyn 200-62.5-25 mcg (Trelegy Ellipta) 1 inh inhalation DAILY 30 days gabapentin 1 capsule BID and 2 capsules at bedtime orally -(4 capsules a day in total) 28 days [HIP BRACE (left hip) As directed] hydralazine 100 mg PO TID 90 days hydrochlorothiazide 25 mg PO DAILY insulin glargine (Lantus Solostar U-100 Insulin) 10 units (0.1 mL) subcut QPM ipratropium-albuterol 0.5 mg-3 mg(2.5 mg base)/3 mL 3 mL inhalation Q6H PRN lancets (FreeStyle Lancets) 28 gauge topical TID lancets (FreeStyle Lancets) As directed 4 X/day lancets Use daily As directed to check blood glucose latanoprost 0.005% 1 drp ophthalmic (eye) DAILY lorazepam 1 to 2 tablets orally twice a day as needed; PRN; 30 days melatonin 5 mg PO BEDTIME PRN montelukast 10 mg PO QPM nebulizer accessories tubing, mask, nebulizer cup, mouth piece nebulizers As directed olmesartan 40 mg PO DAILY omeprazole 40 mg PO DAILY pen needle, diabetic (BD Ultra-Fine Mini Pen Needle) As directed 1x daily. polyethylene glycol 3350 (Miralax) 238 grams PO ONCE 1 day prednisone 40 mg (2 x 20 mg) PO DAILY prednisone 10 mg PO DAILY 9 days [PULSE OXIMETER As directed] sildenafil 50 mg PO DAILY PRN tamsulosin 0.4 mg PO DAILY 90 days [THERMOMETER As directed] tirzepatide (Mounjaro) 5 mg (0.5 mL) subcut QWEEK zolpidem 10 mg PO BEDTIME PRN 30 days HPI HPI DM/CONFIRMED: Details: Patient is a 58-year-old male with a significant past medical history of insulin-dependent type 2 diabetes, hyperlipidemia, hypertension, COPD with asthma overlap presenting today for a diabetic follow-up. Endo: His last A1c was 6.1. He is on 10 units of Lantus, mounjaro 5 mg q weekly. He denies any adverse effects of the Mounjaro such as nausea, vomiting or GI upset. -he states that he often skips the Lantus at night because his blood sugars are pretty well-controlled. cgm-reviewed on his phone today his freestyle Lola shows that he is using it 96%. He is within range 99%, 1% hyperglycemic. No hypoglycemia or very hyperglycemic events. -denies any regular low blood sugars. Would correct this with juice. -he does have ongoing peripheral neuropathy and does monitor his feet daily. He is on gabapentin. He follows with Podiatry. -he just followed with Ophthalmology last month and states that his eyes were normal other than he may benefit from 1 corrective lens. CV: Blood pressure today in the office is 156/84. He is on amlodipine 10 mg, hydralazine 100 mg t.i.d., hydrochlorothiazide 25 mg and olmesartan 40 mg daily. Cholesterol is controlled with Zetia 10 mg. -he states blood pressures have been higher today because he has not been taking hydralazine consistently. He states it makes he feel funny when he takes it. He has contacted his newspaper stuffer. [facility] Medical History (Updated 12/08/23 @ 14:08 by Rae Oconnor PA-C) Laryngospasm Chronic bronchitis Supplemental oxygen dependent Onychomycosis Diabetes Hx of fracture of fibula GERD without esophagitis Asthma-COPD overlap syndrome Diastasis recti Laryngospasm JOSÉ (obstructive sleep apnea) Bursitis Low back pain Claustrophobia GERD (gastroesophageal reflux disease) Hemoptysis Anxiety Insomnia Migraine Pure hypercholesterolemia Benign essential hypertension Type 2 diabetes mellitus with hyperglycemia, without long-term current use of insulin Stasis edema of both lower extremities Lumbar degenerative disc disease Obesity (BMI 30-39.9) Chronic rhinitis Hiatal hernia Erectile dysfunction Asthma Surgical History History of bronchoscopy History of endoscopy Hx of colonoscopy Hx of cardiac catheterization History of nasal surgery History of carpal tunnel surgery Family History Father No problems noted. Mother Chronic kidney disease (CKD) Heart attack Other Mental health problem Social History Household Members: Spouse, Family and Children Household Members Other:: , kids Housing: House Are you a primary direct care supervisor to a significant other at home: No Do you presently have visiting nurse or other home services: No Alcohol intake: never Patient Tobacco Use Status: Never used Tobacco e-Cigarette/Vaping Use: Never Used Second Hand Smoke Exposure: Yes (employees smoked atwork) service: No Current occupational status: disabled Cognitive needs: No Hearing needs: No Vision needs: No Physical Exam Const Orientation/consciousness: patient oriented x3 Neck Neck: Yes no lymphadenopathy Thyroid: Thyroid normal Carotids: no bruits Resp Auscultation: clear to auscultation bilaterally Cardio Rate: regular rate Rhythm: regular rhythm Heart sounds: S1 normal heart sound present and S2 normal heart sound present Peripheral pulses: dorsalis pedis present Neuro General: patient oriented x3, gait normal and no focal motor deficits Extrem Other: Monofilament sensation intact bilaterally. Vibratory sensation intact bilaterally. Skin intact. General: Yes normal to inspection Results Reviewed Results Reviewed: Laboratory Tests 06/06/23 09/27/23 10/02/23 12:44 10:20 21:11 Creatinine 1.19 Estimated GFR > 60 Glucose (Clinic) Hgb A1c (Clinic) 6.2 H AST 23 ALT 29 Triglycerides 101 Cholesterol 143 LDL Cholesterol, Calc 91 HDL Cholesterol 32 L 11/10/23 10:45 Creatinine Estimated GFR Glucose (Clinic) 153 H Hgb A1c (Clinic) AST ALT Triglycerides Cholesterol LDL Cholesterol, Calc HDL Cholesterol Assessment & Plan Assessment & Plan (1) Type 2 diabetes, controlled, with peripheral neuropathy: Code(s): E11.42 - Type 2 diabetes mellitus with diabetic polyneuropathy Category: Medical Plan: I will discontinue the Lantus. We will increase Mounjaro as he would like more appetite suppression. Follow up in 3 months. Sooner if needed. He will call me if he has any adverse effects so the Mounjaro at the higher dose or if he has any significant change in his blood sugars. (2) Benign essential hypertension: Code(s): I10 - Essential (primary) hypertension Category: Medical Plan: Elevated above goal. Has an appointment today with his PCP. States that he also has contacted his newspaper stuffer regarding his inconsistency with hydralazine/side effects of drug. Orders: Orders AMB Hemoglobin A1c Today E11.42 - Type 2 diabetes mellitus with diabetic polyneuropathy, Z13.9 - Encounter for screening, unspecified Medications: New tirzepatide (Mounjaro) 7.5 mg (0.5 mL) subcut QWEEK 2 mL 3RF Discontinued blood-glucose sensor (FreeStyle Lola 3 Sensor device) Discontinued Reason: Doctor's Order Apply every 14 days As directed 2 ea 11RF E11.9 - Type 2 diabetes mellitus without complications, Z79.4 - buttermaker continuous churn (current) use of insulin tirzepatide (Mounjaro) Discontinued Reason: Duplicate 5 mg (0.5 mL) subcut QWEEK 2 mL 3RF blood-glucose sensor (FreeStyle Lola 3 Sensor device) Discontinued Reason: Doctor's Order As directed 1 ea 1RF E11.9 - Type 2 diabetes mellitus without complications insulin glargine (Lantus Solostar U-100 Insulin) Discontinued Reason: Doctor's Order 10 units (0.1 mL) subcut QPM 15 mL 2RF E11.9 - Type 2 diabetes mellitus without complications, Z79.4 - buttermaker continuous churn (current) use of insulin Coding Level of Care Code Est Pt Level 4 (56961) Diagnoses Type 2 diabetes, controlled, with peripheral neuropathy E11.42 Benign essential hypertension I10
[2024-02-12 10:27] LABS: Glucose, Whole Blood 114 mg/dL (60-115)
== END 2024-02-12 10:48 | disposition home or self-care (01) ==
PROVIDERS: PCP Internal Medicine; Visit Provider Physician Assistant
DX: Z13.9 Encounter for screening, unspecified (principal); E11.42 Type 2 diabetes mellitus with diabetic polyneuropathy; I10 Essential (primary) hypertension

== ENCOUNTER → 2024-02-12 10:11 | Outpatient (BNVA) | payer OTHER, SELFPAY | PROVIDERS: PCP Internal Medicine; Visit Provider Physician Assistant | DX: M19.011 Primary osteoarthritis, right shoulder (principal); I10 Essential (primary) hypertension; E11.42 Type 2 diabetes mellitus with diabetic polyneuropathy | CPT/HCPCS: 82947; 83036; 96127; 99212 ==

== ENCOUNTER 2024-02-12 13:11 | Outpatient (AMB) | payer OTHER, SELFPAY ==
[2024-02-12 13:27] VITALS: BP 156/100; PULSE 82; O2SAT 97; BMI 33.8
--- NOTE | 2024-02-12 13:27 | A.OFFPC_ITS ---
Vital Signs 02/12/24 13:27 Height 5 ft 8 in Weight 222 lb 2 oz BMI 33.8 BP 156/100 H Blood Pressure Location Lt brachial Position Sitting Pulse 82 Pulse Source Pulse Oximeter Pulse Oximetry (%) 97 Oxygen Delivery Method Room Air Intake Visit Reasons: rt shoulder pain [place] Attendant Required: No Accompanied by: Self / Same As Patient Allergies iodine [Iodine] Allergy (Severe, Verified 02/12/24 14:08) Anaphylaxis lisinopril Allergy (Severe, Verified 02/12/24 14:08) Rash metformin Allergy (Severe, Verified 02/12/24 14:08) diarrhea meperidine [From Demerol] Allergy (Mild, Verified 02/12/24 14:08) RASH oxycodone [From Percocet] Adverse Reaction (Mild, Verified 02/12/24 14:08) MOUTH DRYNESS,RASH Mercury Detox Allergy (Severe, Uncoded 02/12/24 14:08) Throat closing (charcoal) Shellfish Allergy (Severe, Uncoded 02/12/24 14:08) Anaphylaxis Medication List - Last Reconciled 02/12/24 by Oliverio Emerson MD albuterol sulfate 2.5 mg (3 mL) continuous nebulization QID PRN 30 days albuterol sulfate 90 mcg/actuation (Ventolin HFA) 2 puffs PO QID PRN 90 days alcohol swabs (BD Alcohol Swabs) 1 pad topical TID amlodipine 10 mg PO DAILY aspirin 81 mg PO DAILY azithromycin 250 mg PO 3XW bisacodyl (Dulcolax (bisacodyl)) 20 mg (4 x 5 mg) PO ONCE 1 day blood pressure monitor (Blood Pressure Kit) Take BP up to once daily and keep a log blood sugar diagnostic Use daily as directed to check blood glucose blood sugar diagnostic (FreeStyle Lite Strips) As directed tests 5 X/day blood-glucose meter Use daily As directed to check blood glucose blood-glucose meter (FreeStyle Lite Meter kit) As directed- To test blood sugar three times a day blood-glucose sensor (FreeStyle Lola 3 Sensor device) use daily As directed to monitor type 2 diabetes. changed q 14 days blood-glucose sensor (FreeStyle Lola 3 Plus Sensor device) use daily As directed to monitor blood glucose budesonide 0.5 mg (2 mL) inhalation BID 30 days cholecalciferol (vitamin D3) 75 mcg PO .Q2days ciclopirox 8% 1 appl topical DAILY 4 weeks [COMPRESSION STOCKINGS (medium compression - 20 to 30 mm); Knee high As directed ] CPAP (CPAP Machine/Device) As directed cyclobenzaprine 10 mg PO BEDTIME PRN [DIABETIC SHOES with INSERTS As directed] diphenhydramine HCl (Benadryl) 25 mg PO TID PRN epinephrine (EpiPen 2-Dread) 0.3 mg (0.3 mL) IM Q4H PRN ezetimibe (Zetia) 10 mg PO DAILY flash glucose scanning reader (NetMovie Lola 2 Elizabeth) use daily As directed to monitor blood glucose readings flash glucose sensor (Pulmonxyle Lola 2 Sensor kit) use daily As directed to monitor glucose [id number]-[id number]-[id number] 200-62.5-25 mcg (Trelegy Ellipta) 1 inh inhalation DAILY 30 days gabapentin 1 capsule BID and 2 capsules at bedtime orally -(4 capsules a day in total) 28 days [HIP BRACE (left hip) As directed] hydralazine 100 mg PO TID 90 days hydrochlorothiazide 25 mg PO DAILY ipratropium-albuterol 0.5 mg-3 mg(2.5 mg base)/3 mL 3 mL inhalation Q6H PRN lancets (FreeStyle Lancets) 28 gauge topical TID lancets (FreeStyle Lancets) As directed 4 X/day lancets Use daily As directed to check blood glucose latanoprost 0.005% 1 drp ophthalmic (eye) DAILY lorazepam 1 to 2 tablets orally twice a day as needed; PRN; 30 days melatonin 5 mg PO BEDTIME PRN montelukast 10 mg PO QPM nebulizer accessories tubing, mask, nebulizer cup, mouth piece nebulizers As directed olmesartan 40 mg PO DAILY omeprazole 40 mg PO DAILY pen needle, diabetic (BD Ultra-Fine Mini Pen Needle) As directed 1x daily. polyethylene glycol 3350 (Miralax) 238 grams PO ONCE 1 day [PULSE OXIMETER As directed] sildenafil 50 mg PO DAILY PRN tamsulosin 0.4 mg PO DAILY 90 days [THERMOMETER As directed] tirzepatide (Mounjaro) 7.5 mg (0.5 mL) subcut QWEEK zolpidem 10 mg PO BEDTIME PRN 30 days Tobacco use date assessed: 02/12/24 Dental Screening Dental Screen Date: 02/12/24 Did you have a dental visit in the last 12 months?: No Did you have a dental problem in the last 6 months where you did not have access to dental care?: No Was dental information given to patient?: No HPI rt shoulder pain HPI Details Patient comes in today mainly to request for additional imaging studies for his right shoulder - he was last seen here a few months ago on 09/27/23 States that his right shoulder pain has progressively gotten a lot worse lately and states that he can now feel something grinding in his shoulder often when he moves his right arm and has noticed some loss of strength in his arm at times recently, especially when he is doing something with his right arm He denies any previous injury or trauma to his right shoulder States that he feels okay otherwise He denies any headaches or dizziness Denies any increased shortness of breath but states that he has noticed (+) chest pains whenever he takes his Hydralazine 100 mg on more than one occasion so he stopped taking it a few weeks ago No nausea/vomiting, no abdominal pain No change in bowel habits noted [facility] Medical History (Updated 02/12/24 @ 14:17 by Oliverio Emerson MD) Laryngospasm Chronic bronchitis Supplemental oxygen dependent Onychomycosis Diabetes Hx of fracture of fibula GERD without esophagitis Asthma-COPD overlap syndrome Diastasis recti Laryngospasm JOSÉ (obstructive sleep apnea) Bursitis Low back pain Claustrophobia GERD (gastroesophageal reflux disease) Hemoptysis Anxiety Insomnia Migraine Pure hypercholesterolemia Benign essential hypertension Type 2 diabetes mellitus with hyperglycemia, without long-term current use of insulin Stasis edema of both lower extremities Lumbar degenerative disc disease Obesity (BMI 30-39.9) Chronic rhinitis Hiatal hernia Erectile dysfunction Asthma Surgical History History of bronchoscopy History of endoscopy Hx of colonoscopy Hx of cardiac catheterization History of nasal surgery History of carpal tunnel surgery Family History Father No problems noted. Mother Chronic kidney disease (CKD) Heart attack Other Mental health problem Social History Household Members: Spouse, Family and Children Household Members Other:: , kids Housing: House Are you a primary healthcare insurance sales agent to a significant other at home: No Do you presently have visiting nurse or other home services: No Alcohol intake: never Patient Tobacco Use Status: Never used Tobacco e-Cigarette/Vaping Use: Never Used Second Hand Smoke Exposure: Yes (employees smoked atwork) service: No Current occupational status: disabled Cognitive needs: No Hearing needs: No Vision needs: No Questionnaire PHQ-9 Over the last 2 weeks, how often have you been bothered by any of the following problems? 1. Little interest or pleasure in doing things: not at all 2. Feeling down, depressed, or hopeless: not at all 3. Trouble falling or staying asleep, or sleeping too much: not at all 4. Feeling tired or having little energy: not at all 5. Poor appetite or overeating: not at all 6. Feeling bad about yourself - or that you are a failure or have let yourself or your family down: not at all 7. Trouble concentrating on things, such as reading the newspaper or watching television: not at all 8. Moving or speaking so slowly that other people could have noticed. Or the opposite - being so fidgety or restless that you have been moving around a lot more than usual: not at all 9. Thoughts that you would be better off or of hurting yourself in some way: not at all Total score: 0 Depression Screening Interpretation: Negative (is on Rx) Depression Screening Done: Yes 01327 - PHQ-9 Billing: Yes Source: Developed by Drs. Oneal Rosenberg, Janelle Blum, Larry Martin and colleagues, with an educational pete from [employer]. Thrive Questionnaire Date Thrive assessed: 02/12/24 I am a: Patient What is your living situation today?: I have a steady place to live Within the past 12 months, did the food you bought not last and you didn't have the money to get more?: Never true Within the past 12 months, did you worry whether your food would run out before you got money to buy more?: Never true Do you have trouble paying for medicines?: No Do you have trouble getting transportation to medical appointments?: No Do you have trouble paying your heating and electricity bill?: No Do you have trouble taking care of your child, family member or friend?: No Do you have trouble with day-to-day activities such as bathing, preparing meals, shopping, managing finances, etc.?: No Are you currently unemployed and looking for a job?: No Are you interested in more education?: No Please select the resources that you would like help with: None Currently or been in a relationship where the following occur: No concerns reported THRIVE Score: 0 AUDIT C Alcohol Use Questionnaire (AUDIT-C) 1. How often do you have a drink containing alcohol?: Never 3. How often do you have six or more drinks on one occasion?: Never Total Score: 0 Score Reviewed/Action Taken: Yes MALLORIE-7 AMB Questionnaire MALLORIE-7 Date MALLORIE - 7 assessed: 02/12/24 Feeling nervous, anxious, or on edge: 0 = Not at all Not being able to stop or control worryin = Not at all Worrying too much about different things: 0 = Not at all Trouble relaxin = Not at all Being so restless that it is hard to sit still: 0 = Not at all Becoming easily annoyed or irritable: 0 = Not at all Feeling afraid as if something awful might happen: 0 = Not at all Total MALLORIE-7 score (0-4 normal; 5-9 mild; 10-14 moderate; 15-21 severe): 0 Source: Developed by Drs. Oneal Rosenberg, Janelle Blum, Larry Martin and colleagues, with an educational pete from [employer]. Review of Systems Const Denies chills, Denies fatigue, Denies fever(s) and Denies headache(s) ENT Reports dysphagia (mild, at times), Denies dizziness, Denies otalgia, Denies headache(s), Denies neck pain, Denies odynophagia and Denies sore throat Card Denies chest pain ((+) chest pains when he was taking his Hydralazine 100 mg), Denies irregular heart rhythm, Denies palpitations and Denies dyspnea Resp Denies chest congestion, Denies cough and Denies dyspnea GI Denies abdominal pain, Denies constipation, Reports dysphagia (mild, at times), Denies heartburn, Denies diarrhea, Denies nausea, Denies odynophagia and Denies vomiting Denies difficulty urinating, Denies dysuria and Denies urinary frequency Musc Reports back pain (chronic - over the lower back), Reports arthralgias (increased pain in the right shoulder lately), Denies joint swelling, Reports muscle weakness (in the right arm, at times), Denies neck pain and Reports tingling (on and off, in both hands and feet) Skin/Breast Denies rash Neuro Denies dizziness, Denies headache(s) and Reports tingling (on and off, in both hands and feet) Psych Reports anxiety Endo Denies fatigue and Denies palpitations Physical exam (Primary Care) Vital Signs: Last Vital Signs Pulse 82 02/12/24 13:27 BP 156/100 H 02/12/24 13:27 Pulse Ox 97 02/12/24 13:27 Oxygen Delivery Method Room Air 02/12/24 13:27 BMI result Body Mass Index 33.8 Tobacco/Smoking Status: Tobacco use Status Tobacco use date assessed 02/12/24 02/12/24 13:33 Patient Tobacco Use Status Never used Tobacco 02/12/24 13:33 e-Cigarette/Vaping Use Never Used 02/12/24 13:33 PHQ-9: PHQ-9 Score PHQ-9: Total score 0 02/12/24 14:07 Depression Screening Interpretation: Negative (is on Rx) Thrive Assessment: Date of Thrive Assessment Date Thrive assessed 02/12/24 02/12/24 13:33 Currently or been in a relationship where the following occur: No concerns reported Const General: no acute distress and alert HENMT Ears: TM's normal bilaterally and EAC's normal Throat: Yes posterior oropharynx normal and Yes tonsils normal (no TP congestion) Neck Neck: Yes no lymphadenopathy and Yes supple Thyroid: Thyroid normal Resp Auscultation: clear to auscultation bilaterally, no rales and no wheezes Cardio Rate: regular rate Rhythm: regular rhythm Heart sounds: no murmurs GI Palpation (GI): Soft to palpation and nontender Auscultation: normal bowel sounds General: Yes no CVA tenderness Back/Spine/Pelvis Back: no CVA tenderness Thoracic/Lumbar Spine: lumbar spinal tenderness Skin Rashes: no rashes Extrem General: Yes no clubbing, cyanosis or edema Right upper extremity: shoulder/upper arm Details: tenderness Location: of the A-C joint Results AMB Hemoglobin A1c AMB Hemoglobin A1c 6.1 % Last Edit by JAKI Hassan on 02/12/24 10:56 Coding Level of Care Code Est Pt Level 3 (51315) Diagnoses Primary osteoarthritis, right shoulder M19.011 Benign essential hypertension I10 Additional Codes PHQ-9 - 67402 - PHQ-9 Billing: Yes ([id number]) Assessment & Plan Assessment & Plan (1) Primary osteoarthritis, right shoulder: Code(s): M19.011 - Primary osteoarthritis, right shoulder Category: Medical Plan: X-rays of the right shoulder done back in September 2023 revealed (+) severe osteoarthritis at the right glenohumeral joint and mild osteoarthritis in the right acromioclavicular joint He is currently requesting for a right shoulder CT for further evaluation Have advised him that in this case, an MRI would be more helpful than a CT but insurance will generally not approve an MRI unless he has proven that his shoulder issues do not improve with a trial of conservative treatment first Will go ahead and refer him to physical therapy for further evaluation and management (2) Benign essential hypertension: Code(s): I10 - Essential (primary) hypertension Category: Medical Plan: Reinforced low sodium diet - goal is systolic BP of 120 mm or less Continue Olmesartan 40 mg QD, Amlodipine 10 mg QD and HCTZ 25 mg QD; was taken off Metoprolol ER 50 mg BID due to his asthma He was on Hydralazine 100 mg TID but recalls experiencing chest pains no more than one occasion when he was taking Hydralazine 100 mg TID so he stopped taking this a while back Will try lowering his Hydralazine to 50 mg TID Patient is again reminded to continue monitoring his blood pressure regularly Plan Follow up as scheduled in April 2024 Orders: Orders PT Evaluation and Treatment 02/12/24 M19.011 - Primary osteoarthritis, right shoulder Medications: Changed From hydralazine 100 mg PO TID 90 days 270 tabs 3RF To hydralazine 50 mg PO TID 90 days 270 tabs 1RF
== END 2024-02-12 14:30 | disposition home or self-care (01) ==
PROVIDERS: PCP Internal Medicine; Visit Provider Internal Medicine
DX: M19.011 Primary osteoarthritis, right shoulder (principal); I10 Essential (primary) hypertension

== ENCOUNTER 2024-03-04 11:45 | Outpatient (AMB) | payer OTHER, SELFPAY ==
[2024-03-04 12:33] VITALS: BP 140/78; PULSE 88; BMI 33.5
--- NOTE | 2024-03-04 12:33 | MHC.OFFVIS ---
Vital Signs 03/04/24 12:33 Height 5 ft 8 in Weight 220 lb 7.396 oz BMI 33.5 BP 140/78 H Blood Pressure Location Lt brachial Position Sitting Pulse 88 Pulse Source Pulse Oximeter Intake Visit Reasons: 1yr F/U R/s fr 12/27 Allergies iodine [Iodine] Allergy (Severe, Verified 02/12/24 14:08) Anaphylaxis lisinopril Allergy (Severe, Verified 02/12/24 14:08) Rash metformin Allergy (Severe, Verified 02/12/24 14:08) diarrhea shellfish derived Allergy (Severe, Verified 02/26/24 09:47) Anaphylaxis meperidine [From Demerol] Allergy (Mild, Verified 02/12/24 14:08) RASH oxycodone [From Percocet] Adverse Reaction (Mild, Verified 02/12/24 14:08) MOUTH DRYNESS,RASH Mercury Detox Allergy (Severe, Uncoded 02/12/24 14:08) Throat closing (charcoal) Medication List - Last Reconciled 03/04/24 by Didier Burch MD albuterol sulfate 2.5 mg (3 mL) continuous nebulization QID PRN 30 days albuterol sulfate 90 mcg/actuation (Ventolin HFA) 2 puffs PO QID PRN 90 days alcohol swabs (BD Alcohol Swabs) 1 pad topical TID amlodipine 10 mg PO DAILY aspirin 81 mg PO DAILY azithromycin 250 mg PO 3XW bisacodyl (Dulcolax (bisacodyl)) 20 mg (4 x 5 mg) PO ONCE 1 day blood pressure monitor (Blood Pressure Kit) Take BP up to once daily and keep a log blood sugar diagnostic Use daily as directed to check blood glucose blood sugar diagnostic (FreeStyle Lite Strips) As directed tests 5 X/day blood-glucose meter Use daily As directed to check blood glucose blood-glucose meter (FreeStyle Lite Meter kit) As directed- To test blood sugar three times a day blood-glucose sensor (FreeStyle Lola 3 Sensor device) use daily As directed to monitor type 2 diabetes. changed q 14 days blood-glucose sensor (FreeStyle Lola 3 Plus Sensor device) use daily As directed to monitor blood glucose budesonide 0.5 mg (2 mL) inhalation BID 30 days ciclopirox 8% 1 appl topical DAILY 4 weeks [COMPRESSION STOCKINGS (medium compression - 20 to 30 mm); Knee high As directed] CPAP (CPAP Machine/Device) As directed cyclobenzaprine 10 mg PO BEDTIME PRN [DIABETIC SHOES with INSERTS As directed] diphenhydramine HCl (Benadryl) 25 mg PO TID PRN epinephrine (EpiPen 2-Dread) 0.3 mg (0.3 mL) IM Q4H PRN flash glucose scanning reader ([employer] Lola 2 [place]) use daily As directed to monitor blood glucose readings flash glucose sensor (FreeStyle Lola 2 Sensor kit) use daily As directed to monitor glucose [id number] 200-62.5-25 mcg (Trelegy Ellipta) 1 inh inhalation DAILY 30 days gabapentin 1 capsule BID and 2 capsules at bedtime orally -(4 capsules a day in total) 28 days glipizide 5 mg PO BEDTIME [HIP BRACE (left hip) As directed] hydralazine 50 mg PO TID 90 days hydrochlorothiazide 25 mg PO DAILY insulin glargine (Lantus Solostar U-100 Insulin) 10 units subcut BEDTIME ipratropium-albuterol 0.5 mg-3 mg(2.5 mg base)/3 mL 3 mL inhalation Q6H PRN lancets (FreeStyle Lancets) 28 gauge topical TID lancets (FreeStyle Lancets) As directed 4 X/day lancets Use daily As directed to check blood glucose latanoprost 0.005% 1 drp ophthalmic (eye) DAILY lorazepam 1 to 2 tablets orally twice a day as needed; PRN; 30 days melatonin 5 mg PO BEDTIME PRN montelukast 10 mg PO QPM nebulizer accessories tubing, mask, nebulizer cup, mouth piece nebulizers As directed olmesartan 40 mg PO DAILY omeprazole 40 mg PO DAILY pen needle, diabetic (BD Ultra-Fine Mini Pen Needle) As directed 1x daily. polyethylene glycol 3350 (Miralax) 238 grams PO ONCE 1 day [PULSE OXIMETER As directed] tamsulosin 0.4 mg PO DAILY 90 days [THERMOMETER As directed] tirzepatide (Mounjaro) 7.5 mg (0.5 mL) subcut QWEEK zolpidem 10 mg PO BEDTIME PRN 30 days HPI Comments Details: Keaton returns for follow-up. In the past, he was seen regarding chest pains. Underwent cardiac catheterization but did not have any significant CAD. Has hypertension. Chronic shortness of breath, thought to be pulmonary in nature. Overall, he feels just about the same as before. No new complaints. No clear-cut angina. Has JOSÉ but not using CPAP. [facility] Medical History (Updated 02/27/24 @ 08:23 by Katie Doss RN) RBBB (right bundle branch block) Laryngospasm Chronic bronchitis Supplemental oxygen dependent Onychomycosis Hx of fracture of fibula GERD without esophagitis Asthma-COPD overlap syndrome Diastasis recti JOSÉ (obstructive sleep apnea) Bursitis Low back pain Claustrophobia Hemoptysis Anxiety Insomnia Migraine Pure hypercholesterolemia Benign essential hypertension Type 2 diabetes mellitus with hyperglycemia, without long-term current use of insulin Stasis edema of both lower extremities Lumbar degenerative disc disease Obesity (BMI 30-39.9) Chronic rhinitis Hiatal hernia Erectile dysfunction Surgical History (Updated 02/26/24 @ 09:57 by Katie Doss RN) History of bronchoscopy History of endoscopy Hx of colonoscopy Hx of cardiac catheterization History of nasal surgery History of carpal tunnel surgery Family History Father No problems noted. 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) Alcohol intake: never Patient Tobacco Use Status: Never used Tobacco e-Cigarette/Vaping Use: Never Used Second Hand Smoke Exposure: Yes (employees smoked atwork) service: No Current occupational status: disabled Cognitive needs: No Hearing needs: No Vision needs: No Review of Systems Const Denies weakness ENT Denies dizziness Card Denies chest pain, Denies chest pain with activity, Denies syncope, Denies rapid heart rate, Denies pedal edema, Denies edema, Denies leg edema, Denies lightheadedness, Denies palpitations, Denies dyspnea, Denies dyspnea on exertion and Denies orthopnea Resp Denies cough, Denies dyspnea and Denies dyspnea on exertion GI Denies hematochezia and Denies change in stool character Musc Denies abnormal gait, Denies muscle cramps, Denies muscle weakness, Denies numbness, Denies radiating pain into limb and Denies tingling Neuro Denies abnormal gait, Denies dizziness, Denies syncope, Denies numbness, Denies tingling and Denies weakness Endo Denies palpitations Physical Exam Vital Signs: Last Vital Signs Pulse 88 03/04/24 12:33 BP 140/78 H 03/04/24 12:33 BMI result Body Mass Index 33.5 Const General: comfortable and no acute distress Orientation/consciousness: patient oriented x3 HEENT Other: Unremarkable Head: Yes normal to inspection Neck Neck: Yes normal visual inspection Chest Chest palpation & inspection: normal inspection of the chest Resp Auscultation: clear to auscultation bilaterally Cardio Palpation: normal PMI Heart sounds: S1 normal heart sound present, S2 normal heart sound present, no gallops, no murmurs and no rubs GI Palpation (GI): Soft to palpation Back/Spine/Pelvis Other: unremarkable Skin General skin exam: no rashes or lesions noted Neuro General: patient oriented x3 Extrem General: Yes normal to inspection Psych Mental Status: mental status grossly normal Assessment & Plan Assessment & Plan (1) SOB (shortness of breath): Code(s): R06.02 - Shortness of breath Category: Medical (2) Essential hypertension: Code(s): I10 - Essential (primary) hypertension Category: Medical Plan Pertinent studies reviewed. Cardiac catheterization- 2018-mild luminal irregularities in the LAD, but otherwise unremarkable coronaries. Echocardiogram 2022, LVEF 59%. No significant valvular findings. Ascending aortic size 3.9 cm. For his BSA, top normal to borderline enlarged. Pulmonary function [id number] obstructive airway disease with significant response to bronchodilator therapy, consistent with asthma/COPD overlap syndrome. Overall, chronic shortness of breath is probably from pulmonary etiology and remains essentially unchanged. Otherwise, with regard to JOSÉ, recommend that he goes back on CPAP. Hypertension meds per primary care. No other changes made at this time. Coding Level of Care Code Est Pt Level 3 (30640) Diagnoses SOB (shortness of breath) R06.02 Essential hypertension I10
== END 2024-03-04 12:49 | disposition home or self-care (01) ==
PROVIDERS: PCP Internal Medicine; Visit Provider Internal Medicine
DX: R06.02 Shortness of breath (principal); I10 Essential (primary) hypertension
CPT/HCPCS: 99213

== ENCOUNTER → 2024-03-04 11:45 | Outpatient (BNVA) | payer OTHER, SELFPAY | PROVIDERS: PCP Internal Medicine; Visit Provider Internal Medicine | DX: R06.02 Shortness of breath (principal); I10 Essential (primary) hypertension | CPT/HCPCS: 99212 ==

== ENCOUNTER 2024-03-05 09:51 | Day surgery (SDC) | payer OTHER, SELFPAY ==
[2024-02-27 08:20] VITALS: BMI 33.8
--- NOTE | 2024-02-27 14:35 | HO.ANESPROP2 ---
Documented by User: Silvia Lind NP 02/27/24 14:39 HPI - Anesthesia Eval Consult details Narrative: 58yo M for Upper Endoscopy with Dilitation, Colonoscopy s/p same 09/2023 with MAC [place]s [facility] [place] and stable at 01/2024 Supplemental O2 2L at night, cannot tolerate CPAP masks Anesthesia Pre-Procedure Meds Is the patient on any of the following meds?: GLP1/DPP4 PMFSH Active Problems Active Problems: All Active Problems Primary osteoarthritis, right shoulder (Acute) Type 2 diabetes, controlled, with peripheral neuropathy (Acute) Abdominal mass, right upper quadrant (Acute) History of adenomatous polyp of colon (Acute) Colon cancer screening (Acute) Upper respiratory tract infection (Acute) Annual physical exam (Acute) Left sided abdominal pain (Acute) Diabetes (Acute) Early satiety (Acute) Postprandial epigastric pain (Acute) SOB (shortness of breath) (Acute) Sensation of chest pressure (Acute) Dysphagia (Acute) Pain and swelling of right wrist (Acute) Facet arthropathy, lumbosacral (Acute) Chronic pain syndrome (Acute) Spondylolisthesis, lumbar region (Acute) Spondylosis of lumbar spine (Acute) Paresthesia of both feet (Acute) Insomnia (Acute) Hypertension (Acute) Diabetes mellitus type 2, insulin dependent (Acute) COVID-19 (Acute) Throat discomfort (Acute) Asthma exacerbation (Acute) Recurrent abdominal pain (Acute) Acute bronchitis (Acute) Laryngospasm (Acute) Asthma-COPD overlap syndrome (Acute) Preop cardiovascular exam (Acute) Major depressive disorder, recurrent (Acute) Left hip pain (Acute) Radicular pain of left lower extremity (Acute) Pain of left sacroiliac joint (Acute) Varicose vein of leg (Acute) Leg pain (Acute) NSVT (nonsustained ventricular tachycardia) (Acute) Heart palpitations (Acute) RBBB (Acute) Bronchitis (Acute) Asthma (Acute) Onychomycosis (Acute) Hx of fracture of fibula (Acute) GERD without esophagitis (Acute) Asthma-COPD overlap syndrome (Acute) Diastasis recti (Acute) JOSÉ (obstructive sleep apnea) (Acute) Hemoptysis (Acute) Anxiety (Acute) Insomnia (Acute) Migraine (Acute) Pure hypercholesterolemia (Acute) Benign essential hypertension (Acute) Type 2 diabetes mellitus with hyperglycemia, without long-term current use of insulin (Acute) Stasis edema of both lower extremities (Acute) Lumbar degenerative disc disease (Acute) Obesity (BMI 30-39.9) (Acute) Chronic rhinitis (Acute) Hiatal hernia (Acute) Erectile dysfunction (Acute) Past Medical History Medical History RBBB (right bundle branch block) Laryngospasm Chronic bronchitis Supplemental oxygen dependent Onychomycosis Hx of fracture of fibula GERD without esophagitis Asthma-COPD overlap syndrome Diastasis recti JOSÉ (obstructive sleep apnea) Bursitis Low back pain Claustrophobia Hemoptysis Anxiety Insomnia Migraine Pure hypercholesterolemia Benign essential hypertension Type 2 diabetes mellitus with hyperglycemia, without long-term current use of insulin Stasis edema of both lower extremities Lumbar degenerative disc disease Obesity (BMI 30-39.9) Chronic rhinitis Hiatal hernia Erectile dysfunction Family History Family History Father No problems noted. 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) Alcohol intake: never Patient Tobacco Use Status: Never used Tobacco e-Cigarette/Vaping Use: Never Used Second Hand Smoke Exposure: Yes (employees smoked atwork) service: No Current occupational status: disabled Cognitive needs: No Hearing needs: No Vision needs: No Meds Allergies Allergy/AdvReac Type Severity Reaction Status Date / Time iodine [Iodine] Allergy Severe Anaphylaxis Verified 02/12/24 14:08 lisinopril Allergy Severe Rash Verified 02/12/24 14:08 metformin Allergy Severe diarrhea Verified 02/12/24 14:08 shellfish derived Allergy Severe Anaphylaxis Verified 02/26/24 09:47 meperidine [From Demerol] Allergy Mild RASH Verified 02/12/24 14:08 oxycodone [From Percocet] AdvReac Mild MOUTH Verified 02/12/24 14:08 DRYNESS,RASH Mercury Detox Allergy Severe Throat Uncoded 02/12/24 14:08 closing (charcoal) Home Medications ?Medication ?Instructions ?Recorded ?Confirmed ?Last Taken ?Type aspirin 81 mg tablet,delayed 81 mg PO DAILY 02/18/20 03/04/24 03/02/24 History release glipizide 5 mg tablet 5 mg PO BEDTIME 02/27/24 03/04/24 03/02/24 History insulin glargine 100 unit/mL (3 10 unit subcut BEDTIME 02/27/24 03/04/24 03/02/24 History mL) subcutaneous pen (Lantus Solostar U-100 Insulin) Exam Height,Weight and Vital Signs: Height 5 ft 8 in Weight 100.698 kg Pertinent Lab Results Pertinent Lab Results: Laboratory Tests 10/02/23 21:11 WBC 6.7 Hgb 14.1 Hct 41.2 L Plt Count 292 Sodium 141 Potassium 3.9 Chloride 108 Carbon Dioxide 24 BUN 23 H Creatinine 1.19 Narrative Narrative: EKG 09/2023 Vent. Rate : 084 BPM Atrial Rate : 084 BPM P-R Int : 192 ms QRS Dur : 144 ms QT Int : 396 ms P-R-T Axes : 011 -28 -05 degrees QTc Int : 467 ms Normal sinus rhythm Right bundle branch block Abnormal ECG When compared with ECG of 11-FEB-2022 16:54, No significant change was found ECHO 2022 Conclusions: - The left ventricular systolic function is normal. The calculated ejection fraction is 59% by biplane method. - No obvious valvular pathology seen on this study. - There is mild dilatation of the ascending aorta measuring 3.90 cm. Assessment and Plan Assessment Anesthesia Assessment: Chart Reviewed Final Anesthetic Review Family History of Problems with Anesthesia: No History of Problems with Anesthesia: No Documented by User: Brigida Sandra MD 03/05/24 12:28 PMFSH Active Problems Active Problems: p All Active Problems Primary osteoarthritis, right shoulder (Acute) Type 2 diabetes, controlled, with peripheral neuropathy (Acute) Abdominal mass, right upper quadrant (Acute) History of adenomatous polyp of colon (Acute) Colon cancer screening (Acute) Upper respiratory tract infection (Acute) Annual physical exam (Acute) Left sided abdominal pain (Acute) Diabetes (Acute) Early satiety (Acute) Postprandial epigastric pain (Acute) SOB (shortness of breath) (Acute) Sensation of chest pressure (Acute) Dysphagia (Acute) Pain and swelling of right wrist (Acute) Facet arthropathy, lumbosacral (Acute) Chronic pain syndrome (Acute) Spondylolisthesis, lumbar region (Acute) Spondylosis of lumbar spine (Acute) Paresthesia of both feet (Acute) Insomnia (Acute) Hypertension (Acute) Diabetes mellitus type 2, insulin dependent (Acute) COVID-19 (Acute) Throat discomfort (Acute) Asthma exacerbation (Acute) Recurrent abdominal pain (Acute) Acute bronchitis (Acute) Laryngospasm (Acute) Asthma-COPD overlap syndrome (Acute) Preop cardiovascular exam (Acute) Major depressive disorder, recurrent (Acute) Left hip pain (Acute) Radicular pain of left lower extremity (Acute) Pain of left sacroiliac joint (Acute) Varicose vein of leg (Acute) Leg pain (Acute) NSVT (nonsustained ventricular tachycardia) (Acute) Heart palpitations (Acute) RBBB (Acute) Bronchitis (Acute) Asthma (Acute) Onychomycosis (Acute) Hx of fracture of fibula (Acute) GERD without esophagitis (Acute) Asthma-COPD overlap syndrome (Acute) Diastasis recti (Acute) JOSÉ (obstructive sleep apnea) (Acute) Hemoptysis (Acute) Anxiety (Acute) Insomnia (Acute) Migraine (Acute) Pure hypercholesterolemia (Acute) Benign essential hypertension (Acute) Type 2 diabetes mellitus with hyperglycemia, without long-term current use of insulin (Acute) Stasis edema of both lower extremities (Acute) Lumbar degenerative disc disease (Acute) Obesity (BMI 30-39.9) (Acute) Chronic rhinitis (Acute) Hiatal hernia (Acute) Erectile dysfunction (Acute) ER visit 11/2023 for cannabis overdose secondary to ingesting edibles Past Medical History Medical History RBBB (right bundle branch block) Laryngospasm Chronic bronchitis Supplemental oxygen dependent Onychomycosis Hx of fracture of fibula GERD without esophagitis Asthma-COPD overlap syndrome Diastasis recti JOSÉ (obstructive sleep apnea) Bursitis Low back pain Claustrophobia Hemoptysis Anxiety Insomnia Migraine Pure hypercholesterolemia Benign essential hypertension Type 2 diabetes mellitus with hyperglycemia, without long-term current use of insulin Stasis edema of both lower extremities Lumbar degenerative disc disease Obesity (BMI 30-39.9) Chronic rhinitis Hiatal hernia Erectile dysfunction Family History Family History Father No problems noted. 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) Alcohol intake: never Patient Tobacco Use Status: Never used Tobacco e-Cigarette/Vaping Use: Never Used Second Hand Smoke Exposure: Yes (employees smoked atwork) service: No Current occupational status: disabled Cognitive needs: No Hearing needs: No Vision needs: No Meds Allergies Allergy/AdvReac Type Severity Reaction Status Date / Time iodine [Iodine] Allergy Severe Anaphylaxis Verified 02/12/24 14:08 lisinopril Allergy Severe Rash Verified 02/12/24 14:08 metformin Allergy Severe diarrhea Verified 02/12/24 14:08 shellfish derived Allergy Severe Anaphylaxis Verified 02/26/24 09:47 meperidine [From Demerol] Allergy Mild RASH Verified 02/12/24 14:08 oxycodone [From Percocet] AdvReac Mild MOUTH Verified 02/12/24 14:08 DRYNESS,RASH Mercury Detox Allergy Severe Throat Uncoded 02/12/24 14:08 closing (charcoal) Home Medications ?Medication ?Instructions ?Recorded ?Confirmed ?Last Taken ?Type aspirin 81 mg tablet,delayed 81 mg PO DAILY 02/18/20 03/04/24 03/02/24 History release glipizide 5 mg tablet 5 mg PO BEDTIME 02/27/24 03/04/24 03/02/24 History insulin glargine 100 unit/mL (3 10 unit subcut BEDTIME 02/27/24 03/04/24 03/02/24 History mL) subcutaneous pen (Lantus Solostar U-100 Insulin) Exam Height,Weight and Vital Signs: Height 5 ft 8 in Weight 100.698 kg Vital Signs Temp Pulse Resp BP Pulse Ox O2 Del Method 03/05/24 11:01 98.5 F 72 18 169/93 H 96 Room Air Pertinent Lab Results Pertinent Lab Results: Laboratory Tests 10/02/23 21:11 WBC 6.7 Hgb 14.1 Hct 41.2 L Plt Count 292 Sodium 141 Potassium 3.9 Chloride 108 Carbon Dioxide 24 BUN 23 H Creatinine 1.19 Lab Results 03/05/24 Range/Units 10:59 POC Glucose 135 H (60-115) mg/dL Airway Mallampati Class: II TM Dist: >3cm Neck ROM: Full Loose/Missing/Broken Teeth: No (Denies broken or loose teeth) Heart: RRR Lungs: CTAB Assessment and Plan Assessment Anesthesia Assessment: Anesthesia Plan Discussed and Chart Reviewed Final Anesthetic Review Family History of Problems with Anesthesia: No History of Problems with Anesthesia: No NPO: Yes ASA Class: III Final Preanesthetic Review: No Changes in Pt Med Stat, Meds/Allgs Chart Reviewed, Consent Obtained/Reviewed and Anes Risks/Benef Reviewed Patient Risk: Intermediate Procedure Risk: Low Assessment/Block/Sedation in SS: Assess/Block/Sedation-SS Anesthetic Plan Anesthetic Plan: TIVA Disposition: Standard PACU
[2024-03-05 11:01] VITALS: BP 169/93; PULSE 72; RESP 18; TEMP 36.9; O2SAT 96; BMI 33.9
[2024-03-05 11:03] LABS: Glucose, Whole Blood 135 mg/dL (60-115)
[2024-03-05] MEDS: Lactated Ringers 1,000 ML 100 ML IVCONT (11:16)
--- NOTE | 2024-03-05 11:41 | MHC.SHP ---
Pre-Procedural Eval Section A - 24 Hr Update-Section A only Date of Service: 03/05/24 Section B - Complete if H&P > 30 days Chief Complaint: Epigastric pain Details of Present Illness: dysphagia Relevant Family History (Specify if Yes): No Relevant Social History: None Present Medications: see Short Stay Collaborative assessment Medical History: Significant History (RBBB (right bundle branch block) Laryngospasm Chronic bronchitis Supplemental oxygen dependent Onychomycosis Hx of fracture of fibula GERD without esophagitis Asthma-COPD overlap syndrome Diastasis recti JOSÉ (obstructive sleep apnea) Bursitis Low back pain Claustrophobia Hemoptysis Anxiety Insomnia ) History of Previous Operations: Relevant previous surgery/procedure and date(s) (History of bronchoscopy History of endoscopy Hx of colonoscopy Hx of cardiac catheterization History of nasal surgery History of carpal tunnel surgery) Allergies: Allergies Allergy/AdvReac Type Severity Reaction Status Date / Time iodine [Iodine] Allergy Severe Anaphylaxis Verified 02/12/24 14:08 lisinopril Allergy Severe Rash Verified 02/12/24 14:08 metformin Allergy Severe diarrhea Verified 02/12/24 14:08 shellfish derived Allergy Severe Anaphylaxis Verified 02/26/24 09:47 meperidine [From Demerol] Allergy Mild RASH Verified 02/12/24 14:08 oxycodone [From Percocet] AdvReac Mild MOUTH Verified 02/12/24 14:08 DRYNESS,RASH Mercury Detox Allergy Severe Throat Uncoded 02/12/24 14:08 closing (charcoal) Review of Systems Sugical H&P ROS: Negative: Constitution, Cardiovascular, Respiratory, Neurological, Psychiatric, Hem-Onc, Allergic/Immunologic, Gastrointestinal, Genitourinary, Musculoskeletal, Integumentary, Endocrine and Eyes/Ears/Nose/Throat Exam Surgical H&P Exam: Normal: HEENT, Normal: Heart, Normal: Lungs, Normal: Extremities, Normal: Abdomen, Normal: Skin and Normal: Neurological Plan Diagnosis/Plan: Unchanged I have reviewed the history and physical and performed a pertinent physical examination on my patient. No changes have occurred unless specified. Time Spent With Patient Time: Total time managing care of this patient today ____ minutes.
--- NOTE | 2024-03-05 11:51 | PC.NURSE ---
pt had c/p 3-4 days ago seen by ash conveyor operator denies c/p sob at this time anesthesia aware
--- NOTE | 2024-03-05 12:10 | W.PM.OPN ---
Operative Note Operative Note Date of Service: 03/05/24 Narrative: Procedure Description: EGD Indication: dsyphagia Anesthesia: MAC FLEXIBLE TRANSORAL UPPER GASTROINTESTINAL ENDOSCOPY UPPER ENDOSCOPY Consent: Indications for the procedure and potential complications of bleeding, perforation, reaction to medications and missed diagnosis were discussed with the patient and informed consent was obtained. Instrument: Olympus GIF H 190 J mid size upper endoscope Monitoring: Vital signs and clinical assessment, continuous EKG monitoring, Pulse oximetry, Carbon Dioxide monitoring and blood pressure monitoring were done throughout the procedure. Procedure: The patient was placed in the left lateral decubitis position and pre-procedure medications were administered and a bite block was placed. The endoscope was inserted into the mouth and advanced under direct vision to the third part of duodenum. A careful inspection was made as the upper endoscope was withdrawn including a retroflexed examination of the proximal stomach; Findings and interventions are described below. Findings: Larynx:normal Esophagus: GE junction at 40 cm, diaphragm hiatus at 40 cm, normal mucosa, --balloon dilation done to 20 mm at UES and LEs, superficial tear seen at UES Stomach: Normal, reduced motility, Grade 2 flap valve on retroflexed examination of the cardia. pylorus dilated with wire guided balloon, 20 mm- no tears seen Duodenum: Normal bulb and descending duodenum, Intervention: wire guided dilation of pylorus and dilation of esophagus Impression/Findings: possible gastroparesis maybe related to trulicity PLAN: if sx persist consider stopping trulicity GERD precautions
[2024-03-05 12:17] VITALS: BP 129/78; PULSE 76; RESP 18; TEMP 36.1; O2SAT 97
[2024-03-05 12:32] VITALS: BP 140/86; PULSE 72; RESP 18; TEMP 36.8; O2SAT 98
== END 2024-03-05 13:13 | disposition home or self-care (01) ==
PROVIDERS: PCP Internal Medicine; Visit Provider Internal Medicine Gastroenterology
PROC: (CPT 43248; principal; 2024-03-05 13:20)
DX: R13.10 Dysphagia, unspecified (principal); K21.9 Gastro-esophageal reflux disease without esophagitis; E11.9 Type 2 diabetes mellitus without complications; I10 Essential (primary) hypertension; E78.00 Pure hypercholesterolemia, unspecified; J45.909 Unspecified asthma, uncomplicated; G47.33 Obstructive sleep apnea (adult) (pediatric); Z99.89 Dependence on other enabling machines and devices; Z79.899 Other long term (current) drug therapy; Z79.82 Long term (current) use of aspirin; Z79.85 Long-term (current) use of injectable non-insulin antidiabetic drugs; Z79.4 Long term (current) use of insulin
CPT/HCPCS: 43248; 43249; 82947; C1726; J2003; J2704

== ENCOUNTER → 2024-03-05 09:51 | Outpatient (BNV) | payer OTHER, SELFPAY | PROVIDERS: PCP Internal Medicine; Visit Provider Internal Medicine Gastroenterology | DX: R13.10 Dysphagia, unspecified (principal); K31.84 Gastroparesis | CPT/HCPCS: 43245; 43249 ==

== ENCOUNTER 2024-03-21 01:18 | Emergency (ER) | payer OTHER, SELFPAY ==
--- NOTE | ~2024-03-21 | XR_ITS ---
CLINICAL HISTORY: productive cough sob 2 view chest x-ray Comparison: CR/SR - XR CHEST 2V - 10/02/23 22:08 EDT Findings: No consolidation or effusion. Heart size is normal. No acute fracture. Multiple calcified loose bodies in the subcoracoid recess of the right shoulder joint. IMPRESSION: 1. No acute findings. This document has been electronically signed by: Ren Kilpatrick MD on 03/21/2024 02:17:04
[2024-03-21 01:25] VITALS: BP 186/108; PULSE 90; RESP 18; TEMP 36.6; O2SAT 98; BMI 33.8
[2024-03-21 01:39] LABS: MANUAL DIFF FLAG NO
[2024-03-21 01:41] LABS: Basophils Percent Auto 0.8 % (0-2); Eosinophils Absolute Auto 0.1 X10*3/uL (0.0-0.4); Eosinophils Percent Auto 1.7 % (0-4); Hematocrit 44.9 % (42.0-52.0); Imm Gran Abs Auto 0.01 X10*3/uL (0.00-0.03); Imm Gran Pct Auto 0.2 % (0.0-0.4); Lymphocytes Absolute Auto 1.4 X10*3/uL (1.2-4.9); Lymphocytes Percent Auto 26.9 % (20-40); Mean Corpuscular HGB Conc 33.4 g/dl (31.0-36.0); Mean Corpuscular Hemoglobin 29.5 pg (27.0-33.0); Mean Corpuscular Volume 88.2 fL (80.0-98.0); Mean Platelet Volume 9.9 fL (9.4-12.4); Monocytes Absolute Auto 0.6 X10*3/uL (0.1-1.2); Monocytes Percent Auto 10.5 % (2-11); Neutrophils Absolute Auto 3.1 x10*3/uL (2.0-8.3); Neutrophils Percent Auto 59.9 % (45-73); Platelet Count 282 X10*3/uL (160-400); Red Blood Count 5.09 X10*6/uL (4.60-5.80); Red Cell Distribution Width 12.4 % (11.0-16.0); White Blood Count 5.2 X10*3/uL (4.8-10.8)
[2024-03-21 02:07] LABS: Alanine Aminotransferase 24 U/L (0-40); Albumin Level 4.2 g/dL (3.5-5.0); Alkaline Phosphatase 67 U/L (39-117); Anion Gap 12 (12-20); Aspartate Amino Transferase 19 U/L (5-37); Bilirubin Total 0.5 mg/dL (0.0-1.0); Blood Urea Nitrogen 13 mg/dL (9-16); Calcium 9.2 mg/dL (8.4-10.2); Carbon Dioxide 27 mmol/L (22-29); Chloride 104 mmol/L (96-108); Creatinine Clr Calc Pharmacy 87.1; Estimated Glomerular Filt Rate > 60; Glucose Random 106 mg/dL (60-115); Potassium 4.1 mmol/L (3.3-5.1); Sodium 139 mmol/L (135-145); Total Protein 7.2 g/dL (6.5-8.0)
[2024-03-21 03:07] LABS: Influenza A PCR NEGATIVE (Negative); Influenza B PCR NEGATIVE (Negative); Resp Syncy Virus RNA Qual PCR NEGATIVE (Negative); SARS COV2 PCR INHOUSE POSITIVE (Negative)
--- NOTE | 2024-03-21 03:15 | ED.URI ---
HPI - URI/Sore Throat General Chief Complaint: Upper Respiratory Symptoms Stated Complaint: Diff Breathing Time Seen by Provider: 03/21/24 03:00 Source: patient Mode of arrival: ambulatory Limitations: no limitations History of Present Illness ED Provider: DR. Wiley HPI Narrative: 58-year-old male came in for evaluation of shortness of breath with productive cough green sputum, generalized body ache, joint pain, chills, fever, patient has been taking his asthma medication with some improvement. No recent travel, no sick contacts. Related Data Home Medications ?Medication ?Instructions ?Recorded ?Confirmed aspirin 81 mg tablet,delayed 81 mg PO DAILY 02/18/20 03/04/24 release glipizide 5 mg tablet 5 mg PO BEDTIME 02/27/24 03/04/24 insulin glargine 100 unit/mL (3 10 unit subcut BEDTIME 02/27/24 03/04/24 mL) subcutaneous pen (Lantus Solostar U-100 Insulin) Previous Rx's ?Medication ?Instructions ?Recorded amlodipine 10 mg tablet 10 mg PO DAILY #90 tabs 05/11/20 latanoprost 0.005 % eye drops 1 drp ophthalmic (eye) DAILY #7.5 11/24/21 mL epinephrine 0.3 mg/0.3 mL 0.3 mg (0.3 mL) IM Q4H PRN 05/27/22 injection, auto-injector (EpiPen anaphylaxis #2 ea 2-Dread) albuterol sulfate 2.5 mg/3 mL 2.5 mg (3 mL) continuous 12/14/22 (0.083 %) solution for nebulization nebulization QID PRN shortness of breath or wheezing 30 days #480 mL lorazepam 0.5 mg tablet See Rx Instructions .Route 05/23/23 .COMPLEX PRN anxiety 30 days #60 tabs tamsulosin 0.4 mg capsule 0.4 mg PO DAILY 90 days #90 caps 06/21/23 omeprazole 40 mg capsule,delayed 40 mg PO DAILY #30 caps 09/27/23 release albuterol sulfate 90 mcg/actuation 2 puff PO QID PRN shortness of 11/16/23 aerosol inhaler (Ventolin HFA) breath or wheezing 90 days #3 multiple units fluticasone fur. 200 mcg-umeclid 1 inh inhalation DAILY 30 days #60 11/16/23 62.5 mcg-vilant 25 mcg ea inhalat.powder (Trelegy Ellipta) ipratropium 0.5 mg-albuterol 3 mg 3 ml inhalation Q6H PRN shortness 11/16/23 (2.5 mg base)/3 mL nebulization of breath or wheezing #180 mL soln budesonide 0.5 mg/2 mL suspension 0.5 mg (2 mL) inhalation BID 30 01/24/24 for nebulization days #120 mL melatonin 5 mg tablet 5 mg PO BEDTIME PRN sleep #30 tabs 01/24/24 zolpidem 10 mg tablet 10 mg PO BEDTIME PRN insomnia 30 01/24/24 days #30 tabs hydralazine 50 mg tablet 50 mg PO TID 90 days #270 tabs 02/12/24 tirzepatide 7.5 mg/0.5 mL 7.5 mg (0.5 mL) subcut QWEEK #2 mL 02/12/24 subcutaneous pen injector (Michelle) montelukast 10 mg tablet 10 mg PO QPM #90 tabs 02/14/24 hydrochlorothiazide 25 mg tablet 25 mg PO DAILY #90 tabs 03/09/24 olmesartan 40 mg tablet 40 mg PO DAILY #90 tabs 03/09/24 gabapentin 400 mg capsule See Rx Instructions PO .COMPLEX 28 03/10/24 days #112 caps azithromycin 250 mg tablet 250 mg PO 3XW 28 days #12 tabs 03/18/24 Allergies Allergy/AdvReac Type Severity Reaction Status Date / Time iodine [Iodine] Allergy Severe Anaphylaxis Verified 03/21/24 01:28 lisinopril Allergy Severe Rash Verified 03/21/24 01:28 metformin Allergy Severe diarrhea Verified 03/21/24 01:28 shellfish derived Allergy Severe Anaphylaxis Verified 03/21/24 01:28 meperidine [From Demerol] Allergy Mild RASH Verified 03/21/24 01:28 oxycodone [From Percocet] AdvReac Mild MOUTH Verified 03/21/24 01:28 DRYNESS,RASH Mercury Detox Allergy Severe Throat Uncoded 03/21/24 01:28 closing (charcoal) Review of Systems Review of Systems: All other systems are reviewed and are negative Constitutional: Reports as per HPI and Reports no additional constitutional complaints Eyes: Reports as per HPI and Reports no additional eye complaints Reports system reviewed and no additional complaints, except as documented Cardiovascular: Reports as per HPI and Reports no additional cardiovascular complaints Respiratory: Reports as per HPI and Reports no additional respiratory complaints Gastrointestinal: Reports as per HPI and Reports no additional gastrointestinal complaints Genitourinary: Reports no additional female genitourinary complaints Musculoskeletal: Reports no additional musculoskeletal complaints Skin/Breast: Reports system reviewed and no additional complaints, except as docu Psychiatric: Reports no additional psychiatric complaints Endocrine: Reports no additional endocrine complaints Hematologic/Lymphatic: Reports no additional hematologic/lymphatic complaints Allergic/Immunologic: Reports no additional allergic/immunologic complaints Reports system reviewed and no additional complaints, except as documented and Reports Abnormal speech present [facility] Past Medical History Medical History RBBB (right bundle branch block) Laryngospasm Chronic bronchitis Supplemental oxygen dependent Onychomycosis Hx of fracture of fibula GERD without esophagitis Asthma-COPD overlap syndrome Diastasis recti JOSÉ (obstructive sleep apnea) Bursitis Low back pain Claustrophobia Hemoptysis Anxiety Insomnia Migraine Pure hypercholesterolemia Benign essential hypertension Type 2 diabetes mellitus with hyperglycemia, without long-term current use of insulin Stasis edema of both lower extremities Lumbar degenerative disc disease Obesity (BMI 30-39.9) Chronic rhinitis Hiatal hernia Erectile dysfunction Surgical History History of bronchoscopy History of endoscopy Hx of colonoscopy Hx of cardiac catheterization History of nasal surgery History of carpal tunnel surgery Family History Family History Father No problems noted. 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) Alcohol intake: never Patient Tobacco Use Status: Never used Tobacco e-Cigarette/Vaping Use: Never Used Second Hand Smoke Exposure: Yes (employees smoked atwork) Advance Directives: No Advance Directives Information Provided: Yes service: No Current occupational status: disabled Cognitive needs: No Hearing needs: No Vision needs: No Physical Exam Vital Signs: Vital Signs: Last Vital Signs Temp 97.9 F 03/21/24 01:25 Pulse 90 03/21/24 01:25 Resp 18 03/21/24 01:25 BP 186/108 H 03/21/24 01:25 Pulse Ox 98 03/21/24 01:25 O2 Del Method Room Air 03/21/24 01:25 BMI result Body Mass Index 33.8 Vital signs have been reviewed and appear to be correct. Blood pressure elevated. Heart rate normal. Respiratory rate normal. Temperature normal. Oxygen saturation normal. Appearance: Alert. Oriented X3. No acute distress. Head: Normal external exam. Normocephalic. Atraumatic. No Ryan signs noted. No raccoon eyes noted Eyes: PERRLA. EOMI. Conjunctiva and sclera normal. Eyelids normal. ENT: TM's Normal. Pharynx normal. Uvula midline. Moist mucous membranes. No trismus noted. No drooling noted. No muffled voice noted. Neck: Normal inspection. Neck supple. FROM. No adenopathy. Thyroid Normal. No meningeal signs. No neck mass noted. CVS: Normal heart rate and rhythm. Heart sound normal. No murmurs noted. Pulses normal throughout. Respiratory: No respiratory distress. Painless inspiration. Breath sounds normal. No wheezes/rales/rhonchi noted. Chest nontender. No accessory muscle usage noted or decreased air movement noted. Abdomen: Soft and nontender. Bowel sounds normal in all 4 quadrants. No distention noted. No organomegaly noted. No visible injury noted. Back: No CVA tenderness. Full range of motion noted. Skin: Skin warm and dry. Normal skin color. Normal skin turgor. No rashes/lesions/lacerations noted. Extremities: No lower extremity edema. Extremities exhibit normal range of motion. Extremities nontender. Neuro: Oriented X 3. Cranial nerve exam: II-XII are grossly intact No motor deficit. No sensory deficit. Reflexes normal. Course Reevaluation(s) Reevaluation #1: Four days of flu-like symptoms patient is positive for COVID, patient had symptoms for 4 days. Time: 03:17 Medical Decision Making Differential Diagnosis Differential Diagnoses: The differential diagnosis associated with the presentation includes (Pneumonia, pneumothorax, pleural effusion, COVID-19 infection, RSV, influenza.) Admission/Observation Consideration of admission/observation: Escalation of care including admission/observation considered Lab Data MDM Lab Attestation statement: I reviewed the patient's lab results. 03/21/24 01:33 03/21/24 01:33 Labs: Lab Results 03/21/24 03/21/24 Range/Units 01:33 02:26 WBC 5.2 (4.8-10.8) X10*3/uL RBC 5.09 (4.60-5.80) X10*6/uL Hgb 15.0 (14.0-18.0) g/dl Hct 44.9 (42.0-52.0) % MCV 88.2 (80.0-98.0) fL MCH 29.5 (27.0-33.0) pg MCHC 33.4 (31.0-36.0) g/dl RDW 12.4 (11.0-16.0) % Plt Count 282 (160-400) X10*3/uL MPV 9.9 (9.4-12.4) fL Immature Gran % (Auto) 0.2 (0.0-0.4) % Neut % (Auto) 59.9 (45-73) % Lymph % (Auto) 26.9 (20-40) % Gooding % (Auto) 10.5 (2-11) % Eos % (Auto) 1.7 (0-4) % Baso % (Auto) 0.8 (0-2) % Lymph # (Auto) 1.4 (1.2-4.9) X10*3/uL Gooding # (Auto) 0.6 (0.1-1.2) X10*3/uL Eos # (Auto) 0.1 (0.0-0.4) X10*3/uL Baso # (Auto) 0.0 (0.0-0.2) X10*3/uL Abs Immat Gran (auto) 0.01 (0.00-0.03) X10*3/uL Absolute Neuts (auto) 3.1 (2.0-8.3) x10*3/uL Absolute Nucleated RBC 0.000 (0.0-0.012) X10*3/uL Nucleated RBC % (auto) 0.0 (0.0-0.2) /100WBC Sodium 139 (135-145) mmol/L Potassium 4.1 (3.3-5.1) mmol/L Chloride 104 (96-108) mmol/L Carbon Dioxide 27 (22-29) mmol/L Anion Gap 12 (12-20) BUN 13 (9-16) mg/dL Creatinine 1.05 (0.5-1.4) mg/dL Estim Creat Clear Calc 87.1 Estimated GFR > 60 Random Glucose 106 (60-115) mg/dL Calcium 9.2 (8.4-10.2) mg/dL Total Bilirubin 0.5 (0.0-1.0) mg/dL AST 19 (5-37) U/L ALT 24 (0-40) U/L Alkaline Phosphatase 67 (39-117) U/L Total Protein 7.2 (6.5-8.0) g/dL Albumin 4.2 (3.5-5.0) g/dL Influenza Type A (PCR) NEGATIVE (Negative) Influenza Type B (PCR) NEGATIVE (Negative) RSV RNA Qual (PCR) NEGATIVE (Negative) SARS-CoV-2 RNA (RT-PCR) POSITIVE A (Negative) Independent Interpretation I performed an independent interpretation of an: Plain X-Ray (Chest: No acute findings.) Radiology Impression Discussion of test interpretation with radiology: I have reviewed the radiologist's reading. Discharge Plan Discharge Clinical Impression: COVID-19 virus infection Patient Disposition: Home, Self-Care Instructions: COVID-19 (Coronavirus Disease 2019) (ED) Prescriptions: No Action latanoprost 0.005 % drops 1 drp ophthalmic (eye) DAILY Qty: 7.5 3RF Rx Instructions: as directed epinephrine [EpiPen 2-Dread] 0.3 mg/0.3 mL auto-injector 0.3 mg IM Q4H PRN (Reason: anaphylaxis) Qty: 2 0RF albuterol sulfate 2.5 mg /3 mL (0.083 %) solution for nebulization 2.5 mg continuous nebulization QID PRN (Reason: shortness of breath or wheezing) 30 Days Qty: 480 5RF tamsulosin 0.4 mg capsule 0.4 mg PO DAILY 90 Days Qty: 90 1RF omeprazole 40 mg capsule,delayed release(DR/EC) 40 mg PO DAILY Qty: 30 6RF albuterol sulfate [Ventolin HFA] 90 mcg/actuation HFA aerosol inhaler 2 puff PO QID PRN (Reason: shortness of breath or wheezing) 90 Days Qty: 3 3RF ipratropium-albuterol 0.5 mg-3 mg(2.5 mg base)/3 mL solution for nebulization 3 ml inhalation Q6H PRN (Reason: shortness of breath or wheezing) Qty: 180 11RF Trelegy Ellipta 200-62.5-25 mcg blister with device 1 inh inhalation DAILY 30 Days Qty: 60 12RF montelukast 10 mg tablet 10 mg PO QPM Qty: 90 0RF hydrochlorothiazide 25 mg tablet 25 mg PO DAILY Qty: 90 0RF olmesartan 40 mg tablet 40 mg PO DAILY Qty: 90 0RF gabapentin 400 mg capsule See Rx Instructions PO .COMPLEX 28 Days Qty: 112 0RF Rx Instructions: 1 capsule BID and 2 capsules at bedtime orally -(4 capsules a day in total) azithromycin 250 mg tablet 250 mg PO 3XW 28 Days Qty: 12 2RF Rx Instructions: Take 1 tablet on Monday/Monday/Monday glipizide 5 mg Tablet 5 mg PO BEDTIME insulin glargine [Lantus Solostar U-100 Insulin] 100 unit/mL (3 mL) insulin pen 10 unit subcut BEDTIME aspirin 81 mg tablet,delayed release (DR/EC) 81 mg PO DAILY lorazepam 0.5 mg tablet See Rx Instructions .ROUTE .COMPLEX PRN (Reason: anxiety) 30 Days Qty: 60 0RF Rx Instructions: 1 to 2 tablets orally twice a day as needed; PRN; amlodipine 10 mg tablet 10 mg PO DAILY Qty: 90 1RF hydralazine 50 mg tablet 50 mg PO TID 90 Days Qty: 270 1RF zolpidem 10 mg tablet 10 mg PO BEDTIME PRN (Reason: insomnia) 30 Days Qty: 30 3RF budesonide 0.5 mg/2 mL suspension for nebulization 0.5 mg inhalation BID 30 Days Qty: 120 6RF melatonin 5 mg tablet 5 mg PO BEDTIME PRN (Reason: sleep) Qty: 30 11RF Mounjaro 7.5 mg/0.5 mL pen injector 7.5 mg subcut QWEEK Qty: 2 3RF Rx Instructions: takes on Mondays Referrals: Oliverio Emerson MD [Primary Care Provider] - Print Language: French
[2024-03-21 03:45] VITALS: BP 168/88; PULSE 89; RESP 18; TEMP 37.2; O2SAT 98
[2024-03-21] MEDS: Ibuprofen 600 MG TABLET PO (03:50)
[2024-03-21 03:57] VITALS: BP 168/88; PULSE 89; RESP 18; TEMP 37.2; O2SAT 98
== END 2024-03-21 03:57 | disposition home or self-care (01) ==
PROVIDERS: Emergency Provider Emergency Medicine; PCP Internal Medicine
DX: U07.1 COVID-19 (principal); R06.02 Shortness of breath; R05.9 Cough, unspecified; M79.10 Myalgia, unspecified site; Z79.899 Other long term (current) drug therapy
CPT/HCPCS: 0241U; 36415; 71046; 80053; 85025; 99283; 99284

== ENCOUNTER → 2024-03-21 01:42 | Outpatient (BNV) | payer OTHER, SELFPAY | PROVIDERS: Emergency Provider Emergency Medicine; PCP Internal Medicine; Visit Provider Radiology Diagnostic Radiology | DX: R05.9 Cough, unspecified (principal) | CPT/HCPCS: 71046 ==

== ENCOUNTER 2024-04-01 11:12 | Outpatient (AMB) | payer OTHER, SELFPAY ==
--- NOTE | 2024-04-01 11:16 | MHC.OFFVIS ---
Vital Signs 04/01/24 11:17 Height 5 ft 8 in Weight 213 lb 13.574 oz BMI 32.5 BP 161/101 H Blood Pressure Location Lt brachial Position Sitting Pulse 110 H Intake Visit Reasons: s/p egd Intake Note: Keaton presents in the office as a follow up EGD. CC: He states he is just here for the results - no concerns. First ocuple days he was having issues swallowing and had a sraping feeling when he ate foods. 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 Allergies iodine [Iodine] Allergy (Severe, Verified 04/01/24 11:18) Anaphylaxis lisinopril Allergy (Severe, Verified 04/01/24 11:18) Rash metformin Allergy (Severe, Verified 04/01/24 11:18) diarrhea shellfish derived Allergy (Severe, Verified 04/01/24 11:18) Anaphylaxis meperidine [From Demerol] Allergy (Mild, Verified 04/01/24 11:18) RASH oxycodone [From Percocet] Adverse Reaction (Mild, Verified 04/01/24 11:18) MOUTH DRYNESS,RASH Mercury Detox Allergy (Severe, Uncoded 04/01/24 11:18) Throat closing (charcoal) HPI HPI s/p egd: Details: 58 yr old m here for f/u RECAP: seen initially by [facility] for satiety, intermittent dysphagia EGD/colo 10/17/23 Endoscopy Findings: gastritis Colonoscopy Findings: colon polyps internal hemorrhoids Path: tubular adenomas with reflux changes and esophagitis EGD 03/05/24 Findings: Larynx:normal Esophagus: GE junction at 40 cm, diaphragm hiatus at 40 cm, normal mucosa, --balloon dilation done to 20 mm at UES and LEs, superficial tear seen at UES Stomach: Normal, reduced motility, Grade 2 flap valve on retroflexed examination of the cardia. pylorus dilated with wire guided balloon, 20 mm- no tears seen Duodenum: Normal bulb and descending duodenum, Intervention: wire guided dilation of pylorus and dilation of esophagus Impression/Findings: possible gastroparesis maybe related to trulicity INTERIM: He has no nausea, vomiting, hematemesis, hematochezia fever or chills he has cramps, takes b vitamins taking ppi before bed time EXAM: GENERAL: The patient is well developed and nontoxic. VITAL SIGNS:see workflow HEENT: Nonicteric sclerae, PERRLA, EOMI. Oropharynx clear. Moist mucous membranes. Conjunctivae appear well perfused. No thyroid mass. CHEST: Chest wall is nontender. HEART: Regular rate and rhythm without murmurs. LUNGS: Clear to auscultation bilaterally. ABDOMEN: Soft, positive bowel sounds, nontender, no organomegaly.no flank tenderness SKIN: No rash, no excessive bruising, petechiae, or purpura. NEUROLOGIC: Cranial nerves II-XII intact without motor/sensory deficit. Psych: normal affect A/P: 1 / dysphagia and satiety, GERD and esophagitis, PLAN: 1/ recommended cont PPI and gave correct instructions on how to take 2/ check vitamin levels 3/ repeat colo 4 yrs PFSH Medical History RBBB (right bundle branch block) Laryngospasm Chronic bronchitis Supplemental oxygen dependent Onychomycosis Hx of fracture of fibula GERD without esophagitis Asthma-COPD overlap syndrome Diastasis recti JOSÉ (obstructive sleep apnea) Bursitis Low back pain Claustrophobia Hemoptysis Anxiety Insomnia Migraine Pure hypercholesterolemia Benign essential hypertension Type 2 diabetes mellitus with hyperglycemia, without long-term current use of insulin Stasis edema of both lower extremities Lumbar degenerative disc disease Obesity (BMI 30-39.9) Chronic rhinitis Hiatal hernia Erectile dysfunction Surgical History History of bronchoscopy History of endoscopy Hx of colonoscopy Hx of cardiac catheterization History of nasal surgery History of carpal tunnel surgery Family History Father No problems noted. 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) Alcohol intake: never Patient Tobacco Use Status: Never used Tobacco e-Cigarette/Vaping Use: Never Used Second Hand Smoke Exposure: Yes (employees smoked atwork) service: No Current occupational status: disabled Cognitive needs: No Hearing needs: No Vision needs: No Physical Exam Vital Signs: Last Vital Signs Pulse 110 H 04/01/24 11:17 BP 161/101 H 04/01/24 11:17 BMI result Body Mass Index 32.5 Assessment & Plan Assessment & Plan (1) Malnutrition: Code(s): E46 - Unspecified protein-calorie malnutrition Category: Medical Plan: see above Orders: Orders Vitamin B12 and Folate Today E46 - Unspecified protein-calorie malnutrition Vitamin B6 Today E46 - Unspecified protein-calorie malnutrition Vitamin B3 (Niacin) Today E46 - Unspecified protein-calorie malnutrition Vitamin B1 Today E46 - Unspecified protein-calorie malnutrition Vitamin B5 (Pantothenic Acid) Today E46 - Unspecified protein-calorie malnutrition Vitamin C Today E46 - Unspecified protein-calorie malnutrition Vitamin D 1,25 dihydroxy Today E46 - Unspecified protein-calorie malnutrition Zinc Today E46 - Unspecified protein-calorie malnutrition Medications: New cholecalciferol (vitamin D3) 25 mcg PO DAILY 90 caps 2RF Coding Level of Care Code Est Pt Level 3 (31575) Diagnoses Malnutrition E46
[2024-04-01 11:17] VITALS: BP 161/101; PULSE 110; BMI 32.5
== END 2024-04-01 11:39 | disposition home or self-care (01) ==
PROVIDERS: PCP Internal Medicine; Visit Provider Internal Medicine Gastroenterology
DX: E46 Unspecified protein-calorie malnutrition (principal)
CPT/HCPCS: 99213

== ENCOUNTER 2024-04-01 11:12 | Outpatient (REF) | payer OTHER, SELFPAY ==
[2024-04-01 13:21] LABS: Vitamin B12 452 pg/mL (200-900)
[2024-04-04 06:18] LABS: Zinc 76 mcg/dL (60-130)
[2024-04-05 14:53] LABS: Nicotinamide <20 ng/mL (see note); Vit B3 - Nicotinic Acid <20 ng/mL (see note)
[2024-04-05 14:58] LABS: Vitamin B1 20 nmol/L (8-30)
[2024-04-05 17:28] LABS: VITAMIN D (1,25 OH) D3 20 pg/mL; Vit D (1,25-Dihydroxy) Total 20 pg/mL (18-72); Vitamin D (1,25 OH) D2 <8 pg/mL
[2024-04-07 16:10] LABS: Vitamin B6 25.5 ng/mL (2.1-21.7)
== END 2024-04-01 11:13 | disposition home or self-care (01) ==
LOC: HO.LAB 11:12
PROVIDERS: PCP Internal Medicine; Visit Provider Internal Medicine Gastroenterology
DX: E46 Unspecified protein-calorie malnutrition (principal); Z98.890 Other specified postprocedural states
CPT/HCPCS: 36415; 82607; 82652; 82746; 84207; 84425; 84591; 84630; 99212

== ENCOUNTER 2024-05-01 13:00 | Outpatient (AMB) | payer OTHER, SELFPAY ==
[2024-05-01 13:05] VITALS: BP 138/86; PULSE 78; O2SAT 97; BMI 33.1
--- NOTE | 2024-05-01 13:05 | MHC.PC.OV ---
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: No Accompanied by: Self / Same As Patient Allergies iodine [Iodine] Allergy (Severe, Verified 05/02/24 09:29) Anaphylaxis lisinopril Allergy (Severe, Verified 05/02/24 09:29) Rash metformin Allergy (Severe, Verified 05/02/24 09:29) diarrhea shellfish derived Allergy (Severe, Verified 05/02/24 09:29) Anaphylaxis meperidine [From Demerol] Allergy (Mild, Verified 05/02/24 09:29) RASH oxycodone [From Percocet] Adverse Reaction (Mild, Verified 05/02/24 09:29) MOUTH DRYNESS,RASH Mercury Detox Allergy (Severe, Uncoded 05/02/24 09:29) Throat closing (charcoal) Medication List - Last Reconciled 05/03/24 by Oliverio Emerson MD albuterol sulfate 2.5 mg (3 mL) continuous nebulization QID PRN 30 days albuterol sulfate 90 mcg/actuation (Ventolin HFA) 2 puffs PO QID PRN 90 days amlodipine 10 mg PO DAILY aspirin 81 mg PO DAILY azithromycin 250 mg PO 3XW 28 days blood sugar diagnostic (FreeStyle Lite Strips) As directed blood-glucose sensor (FreeStyle Lola 3 Plus Sensor device) As directed budesonide 0.5 mg (2 mL) inhalation BID 30 days cholecalciferol (vitamin D3) 25 mcg PO DAILY epinephrine (EpiPen 2-Dread) 0.3 mg (0.3 mL) IM Q4H PRN fluticasone propionate 50 mcg/actuation (Flonase Allergy Relief) 2 sprays intranasal DAILY PRN [id number]-kvpgrfcmn-ajfhmowt 200-62.5-25 mcg (Trelegy Ellipta) 1 inh inhalation DAILY 30 days gabapentin 1 capsule BID and 2 capsules at bedtime orally -(4 capsules a day in total) 28 days hydralazine 50 mg PO TID 90 days hydrochlorothiazide 25 mg PO DAILY ipratropium-albuterol 0.5 mg-3 mg(2.5 mg base)/3 mL 3 mL inhalation Q6H PRN latanoprost 0.005% 1 drp ophthalmic (eye) DAILY lorazepam 1 to 2 tablets orally twice a day as needed; PRN; 30 days melatonin 5 mg PO BEDTIME PRN montelukast 10 mg PO QPM olmesartan 40 mg PO DAILY omeprazole 40 mg PO DAILY tamsulosin 0.4 mg PO DAILY 90 days tirzepatide (Mounjaro) 7.5 mg (0.5 mL) subcut QWEEK zolpidem 10 mg PO BEDTIME PRN 30 days Tobacco use date assessed: 05/01/24 Dental Screening Dental Screen Date: 05/01/24 Did you have a dental visit in the last 12 months?: No Did you have a dental problem in the last 6 months where you did not have access to dental care?: No Was dental information given to patient?: No HPI 3MoFollowUp HPI Details Patient comes in today for his follow up visit States that he tested positive for COVID last month and since then, has been experiencing recurrent sharp pains in his lungs that are felt in his chest and over his back, especially when he takes deep breaths Feels that the pain in his back when he takes deep breaths has gotten worse over the past 4 days and he is concerned that something might be in his lungs Recalls experiencing similar symptoms that lasted for a while when he contracted COVID a couple of years ago He denies any fever or sore throat Denies any headaches or dizziness Denies any chest pains, no increased shortness of breath No nausea/vomiting, no abdominal pain No change in bowel habits noted States that his problems with swallowing have resolved since his esophageal dilatation done with Dr. Gogo banegas in February 2024 He had some labs done at the ER last month when he tested positive for COVID; has no other follow-up labs done since [facility] Medical History (Updated 05/03/24 @ 05:01 by Oliverio Emerson MD) Diabetes mellitus RBBB (right bundle branch block) Laryngospasm Chronic bronchitis Supplemental oxygen dependent Onychomycosis Hx of fracture of fibula GERD without esophagitis Asthma-COPD overlap syndrome Diastasis recti JOSÉ (obstructive sleep apnea) Bursitis Low back pain Claustrophobia Hemoptysis Anxiety Insomnia Migraine Pure hypercholesterolemia Benign essential hypertension Type 2 diabetes mellitus with hyperglycemia, without long-term current use of insulin Stasis edema of both lower extremities Lumbar degenerative disc disease Obesity (BMI 30-39.9) Chronic rhinitis Hiatal hernia Erectile dysfunction Surgical History History of bronchoscopy History of endoscopy Hx of colonoscopy Hx of cardiac catheterization History of nasal surgery History of carpal tunnel surgery Family History Father No problems noted. 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 1. Little interest or pleasure in doing things: not at all 2. Feeling down, depressed, or hopeless: not at all 3. Trouble falling or staying asleep, or sleeping too much: not at all 4. Feeling tired or having little energy: not at all 5. Poor appetite or overeating: not at all 6. Feeling bad about yourself - or that you are a failure or have let yourself or your family down: not at all 7. Trouble concentrating on things, such as reading the newspaper or watching television: not at all 8. Moving or speaking so slowly that other people could have noticed. Or the opposite - being so fidgety or restless that you have been moving around a lot more than usual: not at all 9. Thoughts that you would be better off or of hurting yourself in some way: not at all Total score: 0 Depression Screening Interpretation: Negative (is on Rx) Depression Screening Done: Yes 86979 - PHQ-9 Billing: Yes Source: Developed by Drs. Oneal Rosenberg, Janelle Blum, Larry Martin and colleagues, with an educational pete from [employer]. Thrive Questionnaire Date Thrive assessed: 05/01/24 I am a: Patient What is your living situation today?: I have a steady place to live Within the past 12 months, did the food you bought not last and you didn't have the money to get more?: Never true Within the past 12 months, did you worry whether your food would run out before you got money to buy more?: Never true Do you have trouble paying for medicines?: No Do you have trouble getting transportation to medical appointments?: No Do you have trouble paying your heating and electricity bill?: No Do you have trouble taking care of your child, family member or friend?: No Do you have trouble with day-to-day activities such as bathing, preparing meals, shopping, managing finances, etc.?: No Are you currently unemployed and looking for a job?: No Are you interested in more education?: No Please select the resources that you would like help with: None Currently or been in a relationship where the following occur: No concerns reported THRIVE Score: 0 AUDIT C Alcohol Use Questionnaire (AUDIT-C) 1. How often do you have a drink containing alcohol?: Never 3. How often do you have six or more drinks on one occasion?: Never Total Score: 0 Score Reviewed/Action Taken: Yes MALLORIE-7 AMB Questionnaire MALLORIE-7 Date MALLORIE - 7 assessed: 05/01/24 Feeling nervous, anxious, or on edge: 0 = Not at all Not being able to stop or control worryin = Not at all Worrying too much about different things: 0 = Not at all Trouble relaxin = Not at all Being so restless that it is hard to sit still: 0 = Not at all Becoming easily annoyed or irritable: 0 = Not at all Feeling afraid as if something awful might happen: 0 = Not at all Total MALLORIE-7 score (0-4 normal; 5-9 mild; 10-14 moderate; 15-21 severe): 0 Source: Developed by Janelle Ladd, Larry Martin and colleagues, with an educational pete from [employer]. Review of Systems Const Denies chills, Denies fatigue, Denies fever(s) and Denies headache(s) ENT Denies dysphagia (resolved with EGD and dilatation in February 2024), Denies dizziness, Denies otalgia, Denies headache(s), Denies neck pain, Denies odynophagia and Denies sore throat Card Reports chest pain (when he takes deep breaths lately), Denies irregular heart rhythm, Denies palpitations and Denies dyspnea Resp Denies chest congestion, Denies cough, Reports pain on inspiration (over his chest and back), Denies dyspnea and Denies wheezing GI Denies abdominal pain, Denies constipation, Denies dysphagia (resolved with EGD and dilatation in February 2024), Denies heartburn, Denies diarrhea, Denies nausea, Denies odynophagia and Denies vomiting Denies difficulty urinating, Denies dysuria and Denies urinary frequency Musc Reports back pain (chronic - over the lower back), Reports arthralgias (right shoulder), Denies neck pain and Reports tingling (on and off, in both hands and feet) Skin/Breast Denies rash Neuro Denies dizziness, Denies headache(s) and Reports tingling (on and off, in both hands and feet) Psych Reports anxiety Endo Denies fatigue and Denies palpitations Aller/Immun Denies wheezing Physical exam (Primary Care) Vital Signs: Last Vital Signs Pulse 78 05/01/24 13:05 BP 138/86 05/01/24 13:05 Pulse Ox 97 05/01/24 13:05 Oxygen Delivery Method Room Air 05/01/24 13:05 BMI result Body Mass Index 33.1 Tobacco/Smoking Status: Tobacco use Status Tobacco use date assessed 05/01/24 05/01/24 13:12 Patient Tobacco Use Status Never used Tobacco 05/01/24 13:12 e-Cigarette/Vaping Use Never Used 05/01/24 13:12 PHQ-9: PHQ-9 Score PHQ-9: Total score 0 05/03/24 04:24 Depression Screening Interpretation: Negative (is on Rx) Thrive Assessment: Date of Thrive Assessment Date Thrive assessed 05/01/24 05/01/24 13:12 Currently or been in a relationship where the following occur: No concerns reported Const General: no acute distress and alert HENMT Ears: TM's normal bilaterally and EAC's normal Throat: Yes posterior oropharynx normal and Yes tonsils normal (no TP congestion) Neck Neck: Yes supple and No lymphadenopathy Thyroid: Thyroid normal Resp Auscultation: clear to auscultation bilaterally, no rales and no wheezes Cardio Rate: regular rate Rhythm: regular rhythm Heart sounds: no murmurs GI Palpation (GI): Soft to palpation and nontender Auscultation: normal bowel sounds General: Yes no CVA tenderness Back/Spine/Pelvis Back: no CVA tenderness Thoracic/Lumbar Spine: lumbar spinal tenderness Skin Rashes: no rashes Extrem General: Yes no clubbing, cyanosis or edema Right upper extremity: shoulder/upper arm Details: tenderness Location: of the A-C joint Results AMB Hemoglobin A1c AMB Hemoglobin A1c 5.8 % Last Edit by JAKI Borjas on 05/01/24 14:05 Results Reviewed Results Reviewed: Laboratory Last Values Hgb A1c (Clinic) 5.8 % (4.0-6.0) 05/01/24 13:58 Coding Level of Care Code Est Pt Level 4 (14749) Diagnoses Painful respiration R07.1 Benign essential hypertension I10 Primary osteoarthritis, right shoulder M19.011 Type 2 diabetes mellitus without complication, with long-term current use of insulin E11.9; Z79.4 Diabetes mellitus complication status: without complication Diabetes mellitus penitentiary insulin use: with meterman use Diabetes mellitus type: type 2 Pure hypercholesterolemia E78.00 Dysphagia, unspecified type R13.10 Dysphagia type: unspecified GERD without esophagitis K21.9 Asthma-COPD overlap syndrome J44.9 Migraine without status migrainosus, not intractable, unspecified migraine type G43.909 Intractability: not intractable Migraine type: unspecified Status migrainosus presence: without status migrainosus Degeneration of intervertebral disc of lumbar region with discogenic back pain M51.360 Disc-related pain type: discogenic back pain only Erectile dysfunction, unspecified erectile dysfunction type N52.9 Erectile dysfunction type: unspecified Insomnia, unspecified type G47.00 Insomnia type: unspecified Anxiety F41.9 Episode of recurrent major depressive disorder, unspecified depression episode severity F33.9 Active/Remission status: currently active Major depression episode severity: unspecified Obesity (BMI 30-39.9) E66.9 Additional Codes PHQ-9 - 39261 - PHQ-9 Billing: Yes ([id number]) Assessment & Plan Assessment & Plan (1) Painful respiration: Code(s): R07.1 - Chest pain on breathing Category: Medical Plan: Will send patient for chest x-rays for further evaluation (2) Benign essential hypertension: Code(s): I10 - Essential (primary) hypertension Category: Medical Plan: Reinforced low sodium diet - goal is systolic BP of 120 mm or less Continue Olmesartan 40 mg QD, Amlodipine 10 mg QD, HCTZ 25 mg QD and Hydralazine 50 mg TID He was taken off Metoprolol ER 50 mg BID due to his asthma Patient was also experiencing on and off chest pains when he was taking Hydralazine 100 mg TID but appears to be tolerating the 50 mg dose without any issues He is again reminded to continue monitoring his blood pressure regularly (3) Primary osteoarthritis, right shoulder: Code(s): M19.011 - Primary osteoarthritis, right shoulder Category: Medical Plan: X-rays of the right shoulder done back in September 2023 revealed (+) severe osteoarthritis at the right glenohumeral joint and mild osteoarthritis in the right acromioclavicular joint He was referred to physical therapy a couple of months ago but it does not look like he has been scheduled to start PT yet (4) Diabetes mellitus: Code(s): E11.9 - Type 2 diabetes mellitus without complications Category: Medical Qualifiers: Diabetes mellitus complication status: without complication Diabetes mellitus meterman insulin use: with penitentiary use Diabetes mellitus type: type 2 Qualified Code(s): E11.9 - Type 2 diabetes mellitus without complications; Z79.4 - correction (current) use of insulin Plan: His in-office HgbA1c today is at 5.8% (was previously at 6.2% back in September 2023) - goal is < 7.0% Reinforced diabetic diet Mounjaro 7.5 mg SQ once a week His Lantus was stopped at his last endocrinology visit as he was not really taking it regularly due to normal blood sugar readings; Glipizide was discontinued by endocrinology last year as well [place] [facility] [place] as scheduled (5) Pure hypercholesterolemia: Code(s): E78.00 - Pure hypercholesterolemia, unspecified Category: Medical Plan: Patient used to take Atorvastatin 80 mg QD and Ezetimibe 10 mg QD but appears to have stopped taking these on his own some tiime ago - he himself is not sure exactly when he stopped taking these meds or why he stopped them His cholesterol levels appear to be acceptable when last checked in May 2023 (LDL was at 91 mg/dl) so we held off on starting him back on cholesterol meds at his last visit Will have him recheck his labs and fasting lipids in 3 months for follow-up (6) Dysphagia: Comment: Dysphagia to solids Code(s): R13.10 - Dysphagia, unspecified Category: Medical Qualifiers: Dysphagia type: unspecified Qualified Code(s): R13.10 - Dysphagia, unspecified Plan: Patient states that his symptoms have resolved following his EGD with dilatation by Dr. Bowens back in February 2024 Follow up with GI as scheduled (7) GERD without esophagitis: Code(s): K21.9 - Gastro-esophageal reflux disease without esophagitis Category: Medical Plan: Dietary restrictions reinforced Continue Omeprazole 40 mg QD (8) Asthma-COPD overlap syndrome: Code(s): J44.9 - Chronic obstructive pulmonary disease, unspecified Category: Medical Plan: Continue Trelegy Ellipta 200-62.5-25 mcg 1 inhalation QD, Montelukast 10 mg Q PM and Albuterol HFA 2 inhalations every 6 hours as needed Daliresp was discontinued by pulmonary He is being considered for injection therapy with the newer biologics [place] [facility] [place] as scheduled (9) Migraine: Code(s): G43.909 - Migraine, unspecified, not intractable, without status migrainosus Category: Medical Qualifiers: Intractability: not intractable Migraine type: unspecified Status migrainosus presence: without status migrainosus Qualified Code(s): G43.909 - Migraine, unspecified, not intractable, without status migrainosus Plan: Stable lately He was tried on Topiramate 25 mg Q HS for headache prophylaxis a few years ago but appears to have self-discontinued this shortly afterwards - he does not recall at present whether it helped him back then or not (10) Lumbar degenerative disc disease: Code(s): M51.36 - Other intervertebral disc degeneration, lumbar region Category: Medical Qualifiers: Disc-related pain type: discogenic back pain only Qualified Code(s): M51.360 - Other intervertebral disc degeneration, lumbar region with discogenic back pain only Plan: Reinforced activity and weight-lifting restrictions Continue Gabapentin 400 mg 1 capsule in AM, 1 capsule in PM and 2 capsules at bedtime He has been referred to [facility] [place] [facility] for further recommendations and management plan for his chronic low back pain in the past but it does not look like he was ever seen - will refer him again to pain management if needed but patient asked to put this off for now (11) Erectile dysfunction: Code(s): N52.9 - Male erectile dysfunction, unspecified Category: Medical Qualifiers: Erectile dysfunction type: unspecified Qualified Code(s): N52.9 - Male erectile dysfunction, unspecified Plan: Continue Sildenafil 50 mg PRN Follow up with urology as scheduled (12) Insomnia: Code(s): G47.00 - Insomnia, unspecified Category: Medical Qualifiers: Insomnia type: unspecified Qualified Code(s): G47.00 - Insomnia, unspecified Plan: Sleep hygiene reinforced Continue Zolpidem 10 mg Q HS PRN; also takes Melatonin 10 mg Q HS PRN He was tried previously on Lunesta but states that he cannot stand its aftertaste (13) Anxiety: Code(s): F41.9 - Anxiety disorder, unspecified Category: Medical Plan: Continue Lorazepam 0.5 mg 1 to 2 tablets BID PRN (14) Major depressive disorder, recurrent: Code(s): F33.9 - Major depressive disorder, recurrent, unspecified Category: Medical Qualifiers: Active/Remission status: currently active Major depression episode severity: unspecified Qualified Code(s): F33.9 - Major depressive disorder, recurrent, unspecified Plan: He was on Sertraline 50 mg QD in the past but stopped taking it at some point - is not sure when or why but states that he feels okay without Rx for now Follow up with psychiatry as scheduled (15) Obesity (BMI 30-39.9): Code(s): E66.9 - Obesity, unspecified Category: Medical Plan: Reinforced diet/exercise as tolerated/lose weight Plan Follow up in 3 months Orders: Orders AMB Hemoglobin A1c 05/01/24 Z13.9 - Encounter for screening, unspecified Lipid Panel 3 Months E78.00 - Pure hypercholesterolemia, unspecified Complete Blood Count Auto Diff 3 Months D64.9 - Anemia, unspecified Comprehensive [place]. Panel Fast 3 Months E78.00 - Pure hypercholesterolemia, unspecified TSH reflex Free T4 3 Months E78.00 - Pure hypercholesterolemia, unspecified Vitamin D 25-OH Total 3 Months E55.9 - Vitamin D deficiency, unspecified XR chest 2V 05/01/24 J98.8 - Other specified respiratory disorders, R07.1 - Chest pain on breathing Hemoglobin A1c 3 Months E11.9 - Type 2 diabetes mellitus without complications Microalbumin, Random (w Creat) 3 Months E11.9 - Type 2 diabetes mellitus without complications UA CC w/rflx Micro + Cult 3 Months R30.0 - Dysuria Vitamin B12 and Folate 3 Months E53.8 - Deficiency of other specified B group vitamins Medications: Changed From fluticasone propionate 50 mcg/actuation administer into each nostril 2 sprays intranasal DAILY To fluticasone propionate 50 mcg/actuation (Flonase Allergy Relief) administer into each nostril 2 sprays intranasal DAILY PRN 16 grams 5RF nasal congestion Refilled albuterol sulfate 90 mcg/actuation (Ventolin HFA) 2 puffs PO QID 90 days PRN 3 multiple units 3RF shortness of breath or wheezing J45.901 - Unspecified asthma with (acute) exacerbation zolpidem 10 mg PO BEDTIME 30 days PRN 30 tabs 3RF insomnia
--- OUTSIDE RECORDS SUMMARY | 2024-05-01 14:23 | XMS_ITS | Data Portability ---
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 Plan of Treatment Reminders Order Date Submit Date Provider Last Modified By Organization Details Last Modified Time Details Appointments None recorded. Lab None recorded. Referral None recorded. Procedures None recorded. Surgeries None recorded. Imaging None recorded. Medication Orders Xiidra 5 % eye drops in a dropperett e 2016 017 [facility] #[id number], [address], [place], [id number], 7 10:10:00 TobraDex 0.3 %-0.1 % eye drops,susp ension 2017 018 [facility] #[id number], [address], [place], [id number], 8 10:09:33 Patient TargetsNo targets recorded. Patient Instructions Encounter Date Encounter Id Patient Instructions Last Modified By Organization Details Last Modified Time 07/06/2015 [id number] RTC 6 months for HVF 24-2SS with IOP check or per Dr. Collins. [email or web address] Not available 07/13/2015 13:43:44 07/18/2016 [id number] RX given for glasses Warm compresses, artificial tears, hydration and Ophiem 3 fatty acids (fish oil, flax seed, etc) for dry eye symptoms. Start Xiidra 2x/day. Return 6 weeks or sooner as needed. jmerlin Not available 07/18/2016 10:29:44 12/15/2017 [id number] Tobradex drops four times a day for seven days and it should conitnue to improve. Return with any increase in symptoms including pain, discharge, light sensitivity, or change in vision. jmerlin Not available 12/15/2017 10:12:03 Reason for Referral None Reported. Procedures Surgical History Date Name Laterality Status Provider Name and Address Organization Details Recorded Time 07/19/19 17 Refraction completed [facility] 07/18/2016 09:44:19 07/06/19 16 Fundus Photography completed Dennis Holden, [address], [address], [facility] 07/09/2015 09:03:40 07/06/19 16 Refraction completed [facility] 07/06/2015 15:33:28 Imaging Results None recorded. Procedure Notes None recorded. Medical Equipment None Reported. Allergies Allergen ID Allergen Name Allergen Category Reaction Reaction Severity Criticality Documentation Date Start Date Code Code System Note Provider Name and Address Organization Details Recorded Time 050817 iodine medicatio n Not available Not available Not available 07/06/2015 5933 RxNorm [facility] 6 15:18:45 346506 Demerol medicatio n Not available Not available Not available 07/06/2015 01991 1 RxNorm [facility] 6 15:18:45 634238 acetamino phen / oxycodone medicatio n Not available Not available Not available 07/06/2015 46047 3 RxNorm [facility] 6 15:18:45 031165 shellfish derived food,medi cation Not available Not available Not available 07/06/2015 21226 UNK [facility] 15:18[facility]45 Medications Name Sig Start Date Stop Date Status Note LastModified by Organization Details LastModified Time alcohol sterile prep pads 100's USE UTD TID FOR GLUCOSE TESTING active Not Available Not Available No t Available alcohol swabs 70 % pads active Not Available Not Available Not Available Qvar 80 mcg/actuatio n Metered Aerosol oral inhaler active Not Available Not Available Not Available BD Alcohol Swabs USE UTD TID FOR GLUCOSE TESTING active Not Available Not Available No t Available atorvastatin 80 mg tablet TK 1 T PO ONCE A DAY. active Not Available Not Available Not Available prednisone 10 mg tablet active Not Available Not Available Not Available ipratropium 0.5 mg-albuterol 3 mg (2.5 mg base)/3 mL nebulization soln INHALE 1 VIAL VIA NEBULIZER QID active Not Available Not Available No t Available azithromycin 250 mg tablet TK 2 TS PO FOR 1 DAY THEN TK 1 T PO D FOR 4 DAYS active Not Available Not Available No t Available glyburide 5 mg tablet Take 1 tablet every day by oral route. active Not Available Not Available No t Available simethicone 180 mg capsule TK 1 C PO AFTER MEALS AND HS TID PRN active Not Available Not Available No t Available FreeStyle Lancets 28 gauge USE TO TEST TID active Not Available Not Available No t Available Doc-Q-Lace 100 mg capsule TK 1 C PO ONCE A DAY active Not Available Not Available N ot Available glipizide ER 5 mg tablet, extended release 24 hr TK 1 T PO QD active Not Available Not Available No t Available nortriptylin e 25 mg capsule TK ONE C PO ONCE D active Not Available Not Available No t Available lorazepam 0.5 mg tablet TK 1 TO 2 TS PO BID PRF ANXIETY active Not Available Not Available Not Available tamsulosin 0.4 mg capsule TK 1 C PO QD 30 MINUTES AFTER THE SAME MEAL EACH DAY. active Not Available Not Available No t Available glipizide ER 2.5 mg tablet, extended release 24 hr TK 1 T PO QD active Not Available Not Available No t Available pantoprazole 40 mg tablet,delay ed release active Not Available Not Available N ot Available diphenhydram ine 25 mg capsule TAKE 1 C PO BID active Not Available Not Available No t Available nystatin 100,000 unit/gram topical cream active Not Available Not Available Not Available ranitidine 150 mg tablet TK 1 TO 2 TS PO QHS active Not Available Not Available No t Available clotrimazole -betamethaso ne 1 %-0.05 % topical cream JENNIFER EXT AA BID FOR 15 DAYS active Not Available Not Available No t Available polymyxin B sulfate 10,000 unit-trimeth oprim 1 mg/mL eye drops active Not Available Not Available Not Available hydrochlorot hiazide 12.5 mg capsule TK 1 C PO QD active Not Available Not Available No t Available gabapentin 300 mg capsule TK 1 C PO TID active Not Available Not Available No t Available montelukast 10 mg tablet TK 1 T PO QD IN THE CAROL active Not Available Not Available No t Available hydrochlorot hiazide 25 mg tablet TK 1 T PO D active Not Available Not Availabl e Not Available polyethylene glycol 3350 17 gram/dose oral powder MIX ONE TO TWO CAPFULS IN FULL GLASS OF WATER OR JUICE AND DRINK PO D HS PRF CONSTIPATIO N active Not Available Not Available No t Available zolpidem 10 mg tablet TK 1 T PO HS PRN active Not Available Not Available No t Available methylpredni solone 4 mg tablets in a dose pack active Not Available Not Available No t Available fluticasone propionate 50 mcg/actuatio n nasal spray,suspen go USE 2 SPRAYS IEN ONCE A DAY. active Not Available Not Available Not Available sertraline 50 mg tablet TK 1 T PO QD active Not Available Not Available No t Available naproxen 500 mg tablet TK 1 T PO Q 12 H WF PRN active Not Available Not Available Not Available diazepam 5 mg tablet TK 1 T PO D BEFORE BED TO DECREASE SPASMS. active Not Available Not Available No t Available amoxicillin 875 mg-potassium clavulanate 125 mg tablet active Not Available Not Available Not Available Ventolin HFA 90 mcg/actuatio n aerosol inhaler INL 2 PFS PO QID PRN active Not Available Not Available N ot Available tobramycin 0.3 %-dexamethas one 0.1 % eye drops,suspen go INSTILL 1 DROP INTO AFFECTED EYE(S) BY OPHTHALMIC ROUTE 4 times per day for 7 days, then stop. active Not Available Not Available No t Available olmesartan 40 mg tablet TK 1 T PO QD active Not Available Not Available No t Available Restasis 0.05 % eye drops in a dropperette INSTILL 1 DROP INTO AFFECTED EYE(S) BY OPHTHALMIC ROUTE EVERY 12 HOURS active Not Available Not Available No t Available Spiriva with HandiHaler 18 mcg and inhalation capsules active Not Available Not Available Not Available FreeStyle Lite Strips USE TID UTD active Not Available Not Availa ble Not Available Dexilant 60 mg capsule, delayed release TK 1 C PO QD active Not Available Not Available No t Available Suprep Bowel Prep Kit 17.5 gram-3.13 gram-1.6 gram oral solution active Not Available Not Available Not Available Xiidra 5 % eye drops in a dropperette INSTILL 1 DROP IN BOTH EYES TWICE DAILY 12 HOURS APART active Not Available Not Available No t Available Vitals None Recorded Social History None recorded. Functional Status None recorded. Mental Status None recorded. Family History Nothing Reported. Medical History No medical history recorded. 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 refer to ophthalmol ogy. scheduled to see Dr. Collins for OCT, exam and VF on August. Dry eyes 190929936 H04.1 29 rec AT d Retinal tear 45203613 H3 3.309 well sealed tear with laser temp OD. reviewed syp of rd, rtc if occur. Presbyopia 46181386 H52. 4 [id number] Cody Arshad, [facility], [address] [address] 07/18/2016 08:57:54 07/18/2016 10:20:43 Myopia 84290438 H52.13 Presbyopia 61755687 H52. 4 Dry eyes 457123982 H04.1 29 Not relieved with constant use of ATs, warm compresses Retinal tear 62574951 H3 3.301 well sealed [id number] Cody Arshad, [facility], [address] [address] 12/15/2017 09:17:25 12/15/2017 10:11:50 Acute atopic conjunctivitis 35342446 H10.11 Secondary to probable foreign body (no FB seen) Health Concerns Section Related Observation LastModified by Organization Detai ls LastModified Time None Recorded Concern Status LastModified by Organization Details LastModified Time None Recorded Advance Directives Directive None Recorded Payers Encounter Date Sequence Insurance Name Policy Number Policy Reyna Covered Member ID Reyna Member ID Guarantor Name 07/06/2015 1 [place] [employer] Keaton Cullen [id number] Keaton Cullen 07/06/2015 2 [place] [facility] Keaton Cullen [id number] Keaton Cullen 07/18/2016 1 [place] [facility] Keaton Cullen [id number] Keaton Cullen 07/18/2016 2 [place] [id number] Keaton Cullen 12/15/2017 1 [place] [facility] Keaton Cullen [id number] Keaton Cullen 12/15/2017 2 [place] [facility] Keaton Cullen [id number] Keaton Cullen Notes Date Note Type Note Provider Name and Address Organization Details Recorded Time 07/18/2016 text/html Diabetic Eye ExamReported bypatient.Quality: type II diabetes Context:no history of retinopathy Associated Symptoms:normal visionDry EyeReported bypatient.Location :bilateral Severity:no pain Duration:constant Onset/Timing:recur rent episode Context:taking drops as indicated Modifying Factors:nothing gives relief; OTC medication Associated Symptoms:irritatio n; eyes feel sticky all the time Cody Arshad, LES [address] [place] [address], [phone], [facility] 07/18/2016 10:29:56 12/15/2017 text/html Ocular PainReported bypatient.Location :right; eye(s) Severity:severe;wo rsening Duration:2 days Onset/Timing:sudde n Context:prior eye surgery(Detached Retina) Modifying Factors:eye protection worn; eye(s) flushed immediately after chemical exposure; nothing relieves Associated Symptoms:normal vision; no diplopia;photophob ia;redness;tearing ;pain level 7/10;foreign body sensation Yesterday thinks a bug came out. No discharge, recent URI, crusting. Cody Arshad, LES [address] [place] [address], [phone], [facility] 12/15/2017 10:12:58
--- OUTSIDE RECORDS SUMMARY | 2024-05-01 14:23 | XMS_ITS | Clinical Summary ---
Author Organization [facility] ity Address [address] [place] [address] Care Team Providers Care Network Support Technician Name Role Phone Oliverio Emerson MD Primary Care Provider Social History Tobacco Use Types Packs/Day Years Used Date Smoking Tobacco: Never Assessed Sex and Gender Information Value Date Recorded Sex Assigned at Not on file Legal Sex Male 9:08 PM EST Gender Identity Not on file Sexual Orientation Not on file Plan of Treatment Health Maintenance Due Date Last Done Comments DTaP,Tdap,and Td Vaccines (1 - Tdap) 1983 Hepatitis B Vaccines (1 of 3 - 19+ 3-dose series) 1983 Zoster Vaccines (1 of 2) 2014 Cholesterol Screening (Lipid Panel) 04/14/2023 Colorectal Cancer Screening: Colonoscopy 04/14/2023 Depression Screening 04/14/2023 HIV Screening 04/14/2023 Hepatitis C Screening 04/14/2023 Social Influencers of Health Screening 04/14/2023 COVID-19 Vaccine (2023-2 5 season) 2023 Influenza Vaccine (#1) 2023 RSV Immunization Patients 60 + Years Old (1 - 1-dose 75+ series) 2039 HIB Vaccines Aged Out No longer eligi ble based on patient's age to complete this topic HPV Vaccines Aged Out No longer eligi ble based on patient's age to complete this topic Hepatitis A Vaccines Aged Out No long er eligible based on patient's age to complete this topic IPV Vaccines Aged Out No longer eligi ble based on patient's age to complete this topic MMR Vaccines Aged Out No longer eligi ble based on patient's age to complete this topic Meningococcal ACWY Vaccine Aged Out N o longer eligible based on patient's age to complete this topic Pneumococcal Vaccine: Pediat rics (0 to 5 Years) and At-Risk Patients (6 to 64 Years) Aged Out No longer eligible b ased on patient's age to complete this topic RSV Immunization Patients Un allyssa 20 months Aged Out No longer eligible b ased on patient's age to complete this topic Varicella Vaccines Aged Out No longer eligible based on patient's age to complete this topic Care Teams Network Support Technician Relationship Specialty Start Date End Date Oliverio Emerson MD [address] [place] [address] Dr [address] [place], [place] PCP - General 02/21/22
--- OUTSIDE RECORDS SUMMARY | 2024-05-01 14:23 | XMS_ITS | Data Portability ---
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 Of note pt recently started Cpap at night. EKG with RBBB, no prior. No ROSANNE noted Pt without rales or wheeze. Little relieve with nebs Pt would benefit form CXR and echo cardiogram. WE discussed strict PCP follow up and need to proceed to the ED or increased SOB or Chest pain and he expressed understanding . [email or web address] Not available 11/15/2021 19:11:25 Plan of Treatment Reminders Order Date Submit Date Provider Last Modified By Organization Details Last Modified Time Details Appointments None record ed. Lab None record ed. Referral None record ed. Procedures None record ed. Surgeries None record ed. Imaging None record ed. Medication Orders None record ed. Patient TargetsNo targets recorded. Patient InstructionsNo instructions recorded. Reason for Referral None Reported. Medical Equipment None Reported. Medications Name Sig Start Date Stop Date Status Note LastModified by Organization Details LastModified Time delivery fee active Not Available Not Available Not Available latanoprost 0.005 % eye drops active Not Available Not Available Not Available prednisone 10 mg tablet active Not Available Not Available No t Available ipratropium 0.5 mg-albuterol 3 mg (2.5 mg base)/3 mL nebulization soln active Not Available Not Available Not Available albuterol sulfate 2.5 mg/3 mL (0.083 %) solution for nebulization active Not Available Not Available Not Available sildenafil 50 mg tablet TAKE ONE TABLET BY MOUTH EVERY DAY NEEDED FOR SEXUAL ACTIVITY active Not Available Not Available No t Available cefpodoxime 200 mg tablet active Not Available Not Availabl e Not Available azithromycin 250 mg tablet active Not Available Not Availabl e Not Available metoprolol succinate ER 50 mg tablet,extend ed release 24 hr active Not Available Not Available Not Available Kiki Weston 28 gauge active Not Available Not Available Not Available prednisone 20 mg tablet active Not Available Not Available No t Available gabapentin 400 mg capsule active Not Available Not Available Not Available glipizide ER 5 mg tablet, extended release 24 hr active Not Available Not Availabl e Not Available travoprost 0.004 % eye drops INSTILL 1 DROP IN BOTH EYES AT BEDTIME active Not Available Not Available N ot Available hydralazine 25 mg tablet TAKE 1 TABLET BY MOUTH TWICE DAILY FOR HIGH BLOOD PRESSURE active Not Available Not Available No t Available omeprazole 40 mg capsule,delay ed release active Not Available Not Available N ot Available lorazepam 0.5 mg tablet active Not Available Not Available No t Available tamsulosin 0.4 mg capsule active Not Available Not Available Not Available meclizine 25 mg tablet active Not Available Not Available No t Available pantoprazole 40 mg tablet,delaye d release active Not Available Not Available No t Available diphenhydrami ne 25 mg capsule active Not Available Not Available Not Available Banophen 25 mg tablet active Not Available Not Available No t Available clotrimazole- betamethasone 1 %-0.05 % topical cream active Not Available Not Availabl e Not Available montelukast 10 mg tablet active Not Available Not Available Not Available bisacodyl 5 mg tablet,delaye d release active Not Available Not Available No t Available hydralazine 50 mg tablet active Not Available Not Available Not Available hydrochloroth iazide 25 mg tablet active Not Available Not Available Not Available epinephrine 0.3 mg/0.3 mL injection, auto-injector active Not Available Not Availabl e Not Available polyethylene glycol 3350 17 gram/dose oral powder active Not Available Not Available Not Available zolpidem 10 mg tablet TAKE ONE TABLET BY MOUTH AT BEDTIME NEEDED FOR INSOMNIA active Not Available Not Available No t Available albuterol sulfate HFA 90 mcg/actuation aerosol inhaler INHALE 2 PUFFS FOUR TIMES A DAY NEEDED FOR SHORTNESS OF BREATH OR WHEEZING active Not Available Not Available No t Available amoxicillin 875 mg-potassium clavulanate 125 mg tablet active Not Available Not Availabl e Not Available olmesartan 40 mg tablet active Not Available Not Available No t Available ezetimibe 10 mg tablet TAKE 1 TABLET BY MOUTH DAILY active Not Available Not Available No t Available Alcohol Prep Pads active Not Available Not Available Not Available FreeStyle Lite Strips active Not Available Not Available Not Available Lantus Solostar U-100 Insulin 100 unit/mL (3 mL) subcutaneous pen active Not Available Not Available Not Available FreeStyle [place] Lite kit active Not Available Not Available Not Available melatonin 5 mg tablet active Not Available Not Available No t Available azelastine 205.5 mcg (0.15 %) nasal spray active Not Available Not Available Not Available Lumigan 0.01 % eye drops active Not Available Not Available Not Available Refresh Lacri-Lube 56.8 %-42.5 % eye ointment active Not Available Not Available Not Available Trulicity 1.5 mg/0.5 mL subcutaneous pen injector active Not Available Not Available Not Available UltiCare Pen Needle 31 gauge x 3/16 active Not Available Not Availabl e Not Available Trulicity 3 mg/0.5 mL subcutaneous pen injector active Not Available Not Available Not Available Trelegy Ellipta 200 mcg-62.5 mcg-25 mcg powder for inhalation INHALE 1 PUFF BY MOUTH DAILY active Not Available Not Available No t Available Vitals Date Recorded Body temperature Heart rate Oxygen saturation Oxygen saturation in Arterial blood by Pulse oximetry Respiratory rate Systolic blood pressure Diastolic blood pressure Provider Name and Address Organization Details Last Updated DateTime 2 98.3 [degF] 72 /min 98 % 98 % 16 /min 145 mm[Hg] 94 mm[Hg] Not Available [facility] - production 2 12:49:01 Social History None recorded. Functional Status None recorded. Mental Status None recorded. Family History Nothing Reported. Medical History No medical history recorded. Past Encounters Encounter ID Performer Location Encounter Start Date Encounter Closed Date Diagnosis/Indication Diagnosis SNOMED-CT Code Diagnosis ICD10 Code Diagnosis Note [id number] Esa Ohara MD [facility] [address] [place] [address] 11/15/2021 12:48:47 11/25/2021 13:00:36 Dyspnea 263741436 R06.00 Health Concerns Section Related Observation LastModified by Organization Detai ls LastModified Time None Recorded Concern Status LastModified by Organization Details LastModified Time None Recorded Advance Directives Directive None Recorded Payers Encounter Date Sequence Insurance Name Policy Number Policy Reyna Covered Member ID Reyna Member ID Guarantor Name 11/15/2021 1 [facility] PRIOR TO 2022 - DUAL ELIGIBLE (MEDICARE REPLACEMENT/ADV ANTAGE - HMO) Keaton Cullen [id number] Keaton Cullen Notes Date Note Type Note Provider Name and Address Organization Details Recorded Time 11/15/2021 text/html [facility] Nursing Assessment: Patient Reports: History of asthma, increased use of inhaler; Cough; Shortness of breath with exertion; Pain with inspiration Denies: Cough, fever greater than 2 days Lower extremity swelling Sputum increase Chief Complaints: Asthma, Cough, Chest Pain, Shortness of Breath/Dyspnea, Syncope/Dizziness/Lig htheadedness PMH: Diabetes, Hypertension, COPD/Asthma, Other Allergies: Other Comments: Member reports chest tightness x2 days. Tightness worsens with exertion. Non-productive cough, chest congestion. Episode of lightheadedness last night. Denies fever/chills. hx of asthma. Increased inhaler use. Start CPAP 3 days ago, reports congestion started after CPAP use. ..................... ..................... ..................... ..................... ..................... ..................... ............... 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 Pt admits that laying flat and exerting himself causes SOB. Pt states he uses his nebulizer but it doesn? t help much. No noted edema. 12 lead showed RBBB. Pt doesn? t think he had that before. [facility] [place] that Pt needs to follow up with PCP for echo/chest X-ray but if the tightness or sob got worse he needed to go to ED. Red flags discussed ..................... ..................... ..................... ..................... ..................... ..................... ............... Disposition: Fulfilled Esa Ohara MD [address] [facility],[address], [place], [address], [facility] 11/15/2021 19:11:47
== END 2024-05-01 14:09 | disposition home or self-care (01) ==
PROVIDERS: PCP Internal Medicine; Visit Provider Internal Medicine
DX: Z13.9 Encounter for screening, unspecified (principal)

== ENCOUNTER 2024-05-01 13:00 | Outpatient (REF) | payer OTHER, SELFPAY ==
--- NOTE | ~2024-05-01 | XR_ITS ---
EXAMINATION: XR CHEST CLINICAL INFORMATION: J98.8 - Other specified respiratory disorders COMPARISON: March 21, 2024 TECHNIQUE: 2 views of the chest were obtained. FINDINGS: No consolidation, pleural effusion or pneumothorax. Cardiomediastinal silhouette size is normal with a round apex. Multilevel thoracic spondylosis. XR/XR chest 2V IMPRESSION: No acute airspace disease. Spondylosis, thoracic spine. Consider hypertensive cardiomyopathy in the correct clinical settings. Electronically signed by: Frank Michelle MD 05/01/2024 02:33 PM EST
--- OUTSIDE RECORDS SUMMARY | 2024-05-01 15:35 | XMS_ITS | Clinical Summary ---
Author Organization [facility] ity Address [address] [place] [address] Care Team Providers Care Auto Body Customizer Name Role Phone Oliverio Emerson MD Primary [...] age to complete this topic Care Teams Auto Body Customizer Relationship Specialty Start Date End Date Oliverio Emerson MD [address] [place] [address] Dr [address] [place], [place] PCP - General 02/21/22
== END 2024-05-01 13:01 | disposition home or self-care (01) ==
LOC: HO.XRAY 13:00
PROVIDERS: PCP Internal Medicine; Visit Provider Internal Medicine
DX: J98.8 Other specified respiratory disorders (principal); R07.1 Chest pain on breathing; E11.9 Type 2 diabetes mellitus without complications; I10 Essential (primary) hypertension; M19.011 Primary osteoarthritis, right shoulder; Z79.4 Long term (current) use of insulin; E78.00 Pure hypercholesterolemia, unspecified; R13.10 Dysphagia, unspecified; K21.9 Gastro-esophageal reflux disease without esophagitis; J44.9 Chronic obstructive pulmonary disease, unspecified; M51.360 Other intervertebral disc degeneration, lumbar region with discogenic back pain only; N52.9 Male erectile dysfunction, unspecified; G47.00 Insomnia, unspecified; F41.9 Anxiety disorder, unspecified; F33.9 Major depressive disorder, recurrent, unspecified
CPT/HCPCS: 71046; 83036; 96127; 99212

== ENCOUNTER → 2024-05-01 14:19 | Outpatient (BNV) | payer OTHER, SELFPAY | PROVIDERS: PCP Internal Medicine; Visit Provider Radiology Diagnostic Radiology | DX: J98.8 Other specified respiratory disorders (principal) | CPT/HCPCS: 71046 ==

== ENCOUNTER 2024-05-13 09:49 | Outpatient (AMB) | payer OTHER, SELFPAY ==
[2024-05-13 09:53] VITALS: BP 130/88; PULSE 89; O2SAT 94; BMI 34.0
--- NOTE | 2024-05-13 09:53 | A.OFFVIS_ITS ---
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 Accompanied by: Self / Same As Patient Allergies iodine [Iodine] Allergy (Severe, Verified 05/13/24 09:57) Anaphylaxis lisinopril Allergy (Severe, Verified 05/13/24 09:57) Rash metformin Allergy (Severe, Verified 05/13/24 09:57) diarrhea shellfish derived Allergy (Severe, Verified 05/13/24 09:57) Anaphylaxis meperidine [From Demerol] Allergy (Mild, Verified 05/13/24 09:57) RASH oxycodone [From Percocet] Adverse Reaction (Mild, Verified 05/13/24 09:57) MOUTH DRYNESS,RASH Mercury Detox Allergy (Severe, Uncoded 05/13/24 09:57) Throat closing (charcoal) Medication List - Last Reconciled 05/13/24 by Rae Oconnor PA-C albuterol sulfate 2.5 mg (3 mL) continuous nebulization QID PRN 30 days albuterol sulfate 90 mcg/actuation (Ventolin HFA) 2 puffs PO QID PRN 90 days amlodipine 10 mg PO DAILY aspirin 81 mg PO DAILY azithromycin 250 mg PO 3XW 28 days blood sugar diagnostic (FreeStyle Lite Strips) USE DIRECTED TO TEST 5 TIMES DAILY. blood-glucose sensor (FreeStyle Lola 3 Plus Sensor device) As directed budesonide 0.5 mg (2 mL) inhalation BID 30 days cholecalciferol (vitamin D3) 25 mcg PO DAILY epinephrine (EpiPen 2-Dread) 0.3 mg (0.3 mL) IM Q4H PRN fluticasone propionate 50 mcg/actuation (Flonase Allergy Relief) 2 sprays intranasal DAILY PRN esnfcgznydd-ipexbqmlv-zchjacyf 200-62.5-25 mcg (Trelegy Ellipta) 1 inh inhalation DAILY 30 days gabapentin 1 capsule BID and 2 capsules at bedtime orally -(4 capsules a day in total) 28 days hydralazine 50 mg PO TID 90 days hydrochlorothiazide 25 mg PO DAILY ipratropium-albuterol 0.5 mg-3 mg(2.5 mg base)/3 mL 3 mL inhalation Q6H PRN latanoprost 0.005% 1 drp ophthalmic (eye) DAILY lorazepam 1 to 2 tablets orally twice a day as needed; PRN; 30 days melatonin 5 mg PO BEDTIME PRN montelukast 10 mg PO QPM olmesartan 40 mg PO DAILY omeprazole 40 mg PO DAILY prednisone 10 mg PO DIRECTED 8 days tamsulosin 0.4 mg PO DAILY 90 days zolpidem 10 mg PO BEDTIME PRN 30 days HPI HPI DM: Details: Patient is a 59 year-old male with a significant past medical history of controlled 2 diabetes, hyperlipidemia, hypertension, COPD with asthma overlap presenting today for a diabetic follow-up. Endo: His last A1c was 5.8. He is on mounjaro 7.5 mg weekly. He denies any adverse effects of the Mounjaro such as nausea, vomiting or GI upset. -He does get sometimes get cramping and some nausea within the first couple days of taking mounjaro and then it resolves. He used to have no sx at the 5 mg dose. -denies any regular low blood sugars. Would correct this with juice. -he does have ongoing peripheral neuropathy and does monitor his feet daily. He is on gabapentin. He follows with Podiatry. -he just followed with Ophthalmology last month and states that his eyes were normal other than he may benefit from 1 corrective lens. CV: Blood pressure today in the office is 130/88. He is on amlodipine 10 mg, hydralazine 50 mg t.i.d., hydrochlorothiazide 25 mg and olmesartan 40 mg daily. Cholesterol is controlled with Zetia 10 mg. [facility] Medical History (Updated 05/13/24 @ 09:59 by Rae Oconnor PA-C) Diabetes mellitus RBBB (right bundle branch block) Laryngospasm Chronic bronchitis Supplemental oxygen dependent Onychomycosis Hx of fracture of fibula GERD without esophagitis Asthma-COPD overlap syndrome Diastasis recti JOSÉ (obstructive sleep apnea) Bursitis Low back pain Claustrophobia Hemoptysis Anxiety Insomnia Migraine Pure hypercholesterolemia Benign essential hypertension Type 2 diabetes mellitus with hyperglycemia, without long-term current use of insulin Stasis edema of both lower extremities Lumbar degenerative disc disease Obesity (BMI 30-39.9) Chronic rhinitis Hiatal hernia Erectile dysfunction Surgical History History of bronchoscopy History of endoscopy Hx of colonoscopy Hx of cardiac catheterization History of nasal surgery History of carpal tunnel surgery Family History Father No problems noted. Mother Chronic kidney disease (CKD) Heart attack Other Mental health problem Social History Household Members: Spouse, Family and Children Household Members Other:: adult children Housing: House Are you a primary career development consultant to a significant other at home: No Do you presently have visiting nurse or other home services: Yes (H[employer]GER) Alcohol intake: never Patient Tobacco Use Status: Never used Tobacco e-Cigarette/Vaping Use: Never Used Second Hand Smoke Exposure: Yes (employees smoked atwork) service: No Current occupational status: disabled Cognitive needs: No Hearing needs: No Vision needs: No Physical Exam Const Orientation/consciousness: patient oriented x3 Neck Neck: Yes no lymphadenopathy Thyroid: Thyroid normal Carotids: no bruits Resp Auscultation: clear to auscultation bilaterally Cardio Rate: regular rate Rhythm: regular rhythm Heart sounds: S1 normal heart sound present and S2 normal heart sound present Peripheral pulses: dorsalis pedis present Neuro General: patient oriented x3, gait normal and no focal motor deficits Extrem Other: Monofilament sensation intact bilaterally. Vibratory sensation intact bilaterally. Skin intact. General: Yes normal to inspection Results Reviewed Results Reviewed: Laboratory Tests 06/06/23 03/21/24 05/01/24 12:44 01:33 13:58 Sodium 139 Potassium 4.1 Chloride 104 Carbon Dioxide 27 Anion Gap 12 BUN 13 Creatinine 1.05 Estim Creat Clear Calc 87.1 Estimated GFR > 60 Random Glucose 106 Hgb A1c (Clinic) 5.8 AST 19 ALT 24 Triglycerides 101 Cholesterol 143 LDL Cholesterol, Calc 91 HDL Cholesterol 32 L Assessment & Plan Assessment & Plan (1) Type 2 diabetes, controlled, with peripheral neuropathy: Code(s): E11.42 - Type 2 diabetes mellitus with diabetic polyneuropathy Category: Medical Plan: has some sx of gi upset at the 7.5 mg, will decrease dose to 5 mg today. referral podiatry (2) Hypertension: Code(s): I10 - Essential (primary) hypertension Category: Medical Qualifiers: Hypertension type: primary hypertension Qualified Code(s): I10 - Essential (primary) hypertension Plan: wnl continue today (3) Pure hypercholesterolemia: Code(s): E78.00 - Pure hypercholesterolemia, unspecified Category: Medical Plan: on zeita Orders: Referrals Podiatry Referral E11.42 - Type 2 diabetes mellitus with diabetic polyneuropathy Medications: New tirzepatide (Mounjaro) 5 mg (0.5 mL) subcut QWEEK 2 mL 2RF clotrimazole 1% 1 appl topical BID 4 weeks 45 grams 2RF Coding Level of Care Code Est Pt Level 4 (65112) Complex EM visit Add On G2211 Diagnoses Type 2 diabetes, controlled, with peripheral neuropathy E11.42 Primary hypertension I10 Hypertension type: primary hypertension Pure hypercholesterolemia E78.00
[2024-05-13 10:02] LABS: Glucose, Whole Blood 108 mg/dL (60-115)
--- OUTSIDE RECORDS SUMMARY | 2024-05-13 10:49 | XMS_ITS | Data Portability ---
Author Organization [facility] [employer] Address [address] [place] [id number] Care Team Providers Care Multi Disciplined Language Analyst Name Role Phone [facility] Referring [...] Not Available Not Available Not Available FreeStyle [place] Lite kit active Not Available Not Available [...] Esa Ohara MD Main - [facility] [address] [place] [address] 11/15/2021 12:48:47 11/25/2021 13:00:36 Dyspnea [id number] R06.00 Health Concerns Section Related Observation LastModified by Organization Detai ls LastModified Time None Recorded Concern Status LastModified by Organization Details LastModified Time None Recorded Advance Directives Directive None Recorded Payers Encounter Date Sequence Insurance Name Policy Number Policy Reyna Covered Member ID Reyna Member ID Guarantor Name 11/15/2021 1 [facility] - DOS PRIOR TO 2022 - DUAL ELIGIBLE (MEDICARE REPLACEMENT/ADV ANTAGE - HMO) Keaton Cullen [id number] Keaton Cullen Notes Date Note Type Note [...] ..................... ..................... ..................... ..................... ..................... ..................... ............... 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 Pt admits that laying flat and exerting himself causes SOB. Pt states he uses his nebulizer but it doesn? t help much. No noted edema. 12 lead showed RBBB. Pt doesn? t think he had that before. [facility] advised that Pt needs to follow up with PCP for echo/chest X-ray but if the tightness or sob got worse he needed to go to ED. Red flags discussed ..................... ..................... ..................... ..................... ..................... ..................... ............... Disposition: Fulfilled Esa Ohara MD [address] [facility],[address], [place], [address], JUSTINO - KINGA MCCARTNEY 11/15/2021 19:11:47
--- OUTSIDE RECORDS SUMMARY | 2024-05-13 10:49 | XMS_ITS | Data Portability ---
Author Organization 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 Plan of Treatment Reminders Order Date Submit Date Provider Last Modified By Organization Details Last Modified Time Details Appointments None recorded. Lab None recorded. Referral None recorded. Procedures None recorded. Surgeries None recorded. Imaging None recorded. Medication Orders TobraDex 0.3 %-0.1 % eye drops,susp ension 2017 018 [facility]FACE [employer] [facility][id number], [address], [place], [phone], 8 10:09:33 Xiidra 5 % eye drops in a dropperett e 2016 017 INTERFACE [employer] #[id number], [address], [place], [phone], 7 10:10:00 Patient TargetsNo targets recorded. Patient Instructions Encounter Date Encounter Id Patient Instructions Last Modified By Organization Details Last Modified Time 07/06/2015 [id number] RTC 6 months for HVF 24-2SS with IOP check or per Dr. Collins. jmandile Not available 07/13/2015 13:43:44 07/18/2016 [id number] RX given for glasses Warm compresses, artificial tears, hydration and Latonia 3 fatty acids (fish oil, flax seed, etc) for dry eye symptoms. Start Xiidra 2x/day. Return 6 weeks or sooner as needed. jmerlin Not available 07/18/2016 10:29:44 12/15/2017 [id number] Tobradex drops four times a day for seven days and it should conitnue to improve. Return with any increase in symptoms including pain, discharge, light sensitivity, or change in vision. jmerlin Not available 12/15/2017 10:12:03 Reason for Referral None Reported. Procedures Surgical History Date Name Laterality Status Provider Name and Address Organization Details Recorded Time 07/19/19 17 Refraction completed [facility] 07/18/2016 09:44:19 07/06/19 16 Fundus Photography completed Dennis Holden, [address], [phone], [facility] 07/09/2015 09:03:40 07/06/19 16 Refraction completed [facility] 07/06/2015 15:33:28 Imaging Results None recorded. Procedure Notes None recorded. Medical Equipment None Reported. Allergies Allergen ID Allergen Name Allergen Category Reaction Reaction Severity Criticality Documentation Date Start Date Code Code System Note Provider Name and Address Organization Details Recorded Time 939334 iodine medicatio n Not available Not available Not available 07/06/2015 5933 RxNorm [facility] 6 15:18:45 869300 Demerol medicatio n Not available Not available Not available 07/06/2015 30082 1 RxNorm [facility] 6 15:18:45 272571 acetamino phen / oxycodone medicatio n Not available Not available Not available 07/06/2015 70539 3 RxNorm [facility] 6 15:18:45 279010 shellfish derived food,medi cation Not available Not available Not available 07/06/2015 64915 UNK [facility] 15:18:45 Medications Name Sig Start [...] SNOMED-CT Code Diagnosis ICD10 Code Diagnosis Note [id number] Dennis Mari Holden, [facility] [address] [address] 07/06/2015 14:58:29 07/06/2015 16:23:42 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 refer to ophthalmol ogy. scheduled to see Dr. Collins for OCT, exam and VF on August. Dry eyes 129952423 H04.1 29 rec AT d Retinal tear 93977074 H3 3.309 well sealed tear with laser temp OD. reviewed syp of rd, rtc if occur. Presbyopia 84736197 H52. 4 [id number] Cody Arshad, OD [facility], [address] [address] 07/18/2016 08:57:54 07/18/2016 10:20:43 Myopia 96530841 H52.13 Presbyopia 60399415 H52. 4 Dry eyes 201427818 H04.1 29 Not relieved with constant use of ATs, warm compresses Retinal tear 52328114 H3 3.301 well sealed [id number] Cody Arshad, OD [facility], [address] [address] 12/15/2017 09:17:25 12/15/2017 10:11:50 Acute atopic conjunctivitis 77686387 H10.11 Secondary to probable foreign body (no [...] [place] [employer] Keaton Cullen [id number] Keaton Cullen 07/06/2015 2 [place] [facility] Keaton Cullen [id number] Keaton Cullen 07/18/2016 1 [place]IC[place] B-[place] [facility] Keaton Cullen [id number] Keaton Cullen 07/18/2016 2 [place] [id number] Keaton Cullen 12/15/2017 1 [place] [facility] Keaton Cullen [id number] Keaton Cullen 12/15/2017 2 [place] [facility] Keaton Cullen [id number] Keaton Cullen Notes Date Note Type Note Provider Name and Address Organization Details Recorded Time 07/18/2016 text/html Diabetic Eye ExamReported bypatient.Quality: type II diabetes Context:no history of retinopathy Associated Symptoms:normal visionDry EyeReported bypatient.Location :bilateral Severity:no pain Duration:constant Onset/Timing:recur rent episode Context:taking drops as indicated Modifying Factors:nothing gives relief; OTC medication Associated Symptoms:irritatio n; eyes feel sticky all the time Cody Arshad, LES [address] [place] [address], [phone], [facility] 07/18/2016 10:29:56 12/15/2017 text/html Ocular PainReported bypatient.Location :right; eye(s) Severity:severe;wo rsening Duration:2 days Onset/Timing:sudde n Context:prior eye surgery(Detached Retina) Modifying Factors:eye protection worn; eye(s) flushed immediately after chemical exposure; nothing relieves Associated Symptoms:normal vision; no diplopia;photophob ia;redness;tearing ;pain level 7/10;foreign body sensation Yesterday thinks a bug came out. No discharge, recent URI, crusting. Cody Arshad, LES [address] [place] [address], [phone], [facility] 12/15/2017 10:12:58
--- OUTSIDE RECORDS SUMMARY | 2024-05-13 10:49 | XMS_ITS | Clinical Summary ---
Author Organization [facility] Address [address] [place] [address] Care Team Providers Care Synthetic Cloth Binding Cutter Name Role Phone Oliverio Emerson MD Primary Care Provider [phone] Social History Tobacco Use Types Packs/Day Years Used Date Smoking Tobacco: Never Assessed Sex and Gender Information Value Date Recorded Sex Assigned at Not on file Legal Sex Male 9:08 PM EST Gender Identity Not on file Sexual Orientation Not on file Plan of Treatment Health Maintenance Due Date Last Done Comments DTaP,Tdap,and Td Vaccines (1 - Tdap) 1983 Pneumococcal Vaccine: 50+ Ye ars (1 of 1 - PCV) 2014 Zoster Vaccines (1 of 2) 2014 Cholesterol [...] patient's age to complete this topic Hepatitis B Vaccines Aged Out No long er eligible [...] patient's age to complete this topic Meningococcal B Vacine Aged Out No lo nger eligible based on patient's age to complete [...] age to complete this topic Care Teams Synthetic Cloth Binding Cutter Relationship Specialty Start Date End Date Oliverio Emerson MD [address] [place] [address] [address] [place] PCP - General 02/21/22
== END 2024-05-13 10:13 | disposition home or self-care (01) ==
PROVIDERS: PCP Internal Medicine; Visit Provider Physician Assistant
DX: E11.42 Type 2 diabetes mellitus with diabetic polyneuropathy (principal); I10 Essential (primary) hypertension; E78.00 Pure hypercholesterolemia, unspecified

== ENCOUNTER → 2024-05-13 09:49 | Outpatient (BNVA) | payer OTHER, SELFPAY | PROVIDERS: PCP Internal Medicine; Visit Provider Physician Assistant | DX: E11.42 Type 2 diabetes mellitus with diabetic polyneuropathy (principal); E78.00 Pure hypercholesterolemia, unspecified; I10 Essential (primary) hypertension | CPT/HCPCS: 82947; 99212 ==

== ENCOUNTER 2024-05-30 15:03 | Outpatient (AMB) | payer OTHER, SELFPAY ==
[2024-05-30 15:10] VITALS: BP 136/82; PULSE 94; O2SAT 97; BMI 33.9
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
--- OUTSIDE RECORDS SUMMARY | 2024-05-30 18:49 | XMS_ITS | Data Portability ---
Author Organization [employer] Address [address] [place] [address] Care Team Providers Care Tip Out Worker Name Role Phone [facility] Referring [...] Not Available Not Available Not Available FreeStyle [place] Lite kit active Not Available Not Available [...] Esa Ohara MD Main - instED [address] [place] [address] 11/15/2021 12:48:47 11/25/2021 13:00:36 Dyspnea [id number] R06.00 Health Concerns Section Related Observation LastModified by Organization Detai ls LastModified Time None Recorded Concern Status LastModified by Organization Details LastModified Time None Recorded Advance Directives Directive None Recorded Payers Encounter Date Sequence Insurance Name Policy Number Policy Reyna Covered Member ID Reyna Member ID Guarantor Name 11/15/2021 1 [facility] - DOS PRIOR TO 2022 - DUAL ELIGIBLE (MEDICARE REPLACEMENT/ADV ANTAGE - HMO) Keaton Cullen [id number] Keaton Cullen Notes Date Note Type Note [...] ..................... ..................... ..................... ..................... ..................... ..................... ............... 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
--- OUTSIDE RECORDS SUMMARY | 2024-05-30 18:49 | XMS_ITS | Clinical Summary ---
Author Organization [address] [facility] Address [address] [place] [address] Phone Care Team Providers Care Hospital Pharmacy Technician Name Role Phone Oliverio Emerson MD Primary Care Provider [phone] Social History Tobacco Use Types Packs/Day Years Used Date Smoking Tobacco: Never Assessed Sex and Gender Information Value Date Recorded Sex Assigned at Not on file Legal Sex Male 9:08 PM EST Gender Identity Not on file Sexual Orientation Not on file Plan of Treatment Upcoming Encounters Date Type Department Care Team (Late st Contact Info) Description 07/29/2024 9:15 AM EDT Consult Orthopedic Surgery - [place] [address] [phone] Mike Velasquez DPM [address] [address] Health Maintenance Due Date Last Done Comments Diabetes: Annual GFR (Glomer ular Filtration Rate) 1964 Diabetes: Annual Foot Exam 1974 Diabetes: Annual Retina Eye Exam 1974 DTaP,Tdap,and Td Vaccines (1 - Tdap) 1983 Pneumococcal Vaccine: 50+ Ye ars (1 of 2 - PCV) 1983 Pneumococcal Vaccine: Pediat rics (0 to 5 Years) and At-Risk Patients (6 to 64 Years) (1 of 2 - PCV) 1983 Zoster Vaccines (1 of 2) 2014 Cholesterol Screening (Lipid Panel) 04/14/2023 Colorectal Cancer Screening: Colonoscopy 04/14/2023 Depression Screening 04/14/2023 HIV Screening 04/14/2023 Hepatitis C Screening 04/14/2023 Medicare Annual Wellness Visit 04/14/2023 Social Influencers of Health Screening 04/14/2023 COVID-19 Vaccine (1 - 2023-2 5 season) 2023 Influenza Vaccine (#1) 2023 RSV Immunization Patients 60 + Years Old (1 - Risk 60-74 years 1-dose series) 2024 Diabetes: Annual Urine Albumin-Creatinine Ratio (uACR) 05/30/2024 Diabetes: Blood Sugar Contro l Test (HGBA1C) 05/30/2024 HIB Vaccines Aged Out No longer eligi [...] on patient's age to complete this topic Insurance [place] Member Subscriber Plan / Payer (Ef fective 2024-Present) Name:Keaton Cullen Relation to Subscriber:Self Name:Keaton Cullen Payer ID:[id number] Group ID:Not on file Type:Not on file Address: [facility] ATTN:[employer] [address] [place] [address] [employer] MEDICARE Member Subscriber Plan / Payer (Ef fective 2018-Present) Name:Keaton Cullen Relation to Subscriber:Self Name:Keaton Cullen Payer ID:[id number] Group ID:[id number] Type:Not on file Address: [address] [place] [address] Care Teams Hospital Pharmacy Technician Relationship Specialty Start Date End Date Oilverio Emerson MD [address] [place] [address] [address] JUSTINO Christiansen PCP - General 02/21/22
--- OUTSIDE RECORDS SUMMARY | 2024-05-30 18:49 | XMS_ITS | Data Portability ---
Author Organization [facility], [facility] Address [address] [place] [address] Care Team Providers Care Paraprofessional Interpreter Name Role Phone DENNIS HOLDEN [employer] Unavailable Assessment No assessment recorded. Plan of Treatment Reminders Order Date Submit Date Provider Last Modified By Organization Details Last Modified Time Details Appointments None recorded. Lab None recorded. Referral None recorded. Procedures None recorded. Surgeries None recorded. Imaging None recorded. Medication Orders TobraDex 0.3 %-0.1 % eye drops,susp ension 2017 018 INTERFACE [facility] #[id number], [address], [place], [id number], 8 10:09:33 Xiidra 5 % eye drops in a dropperett e 2016 017 INTERFACE [employer] #[id number], [address], [place], [id number], 7 10:10:00 Patient TargetsNo targets recorded. Patient Instructions Encounter Date Encounter Id Patient Instructions Last Modified By Organization Details Last Modified Time 07/06/2015 [id number] RTC 6 months for HVF 24-2SS with IOP check or per Dr. Collins. jmandile Not available 07/13/2015 13:43:44 07/18/2016 [id number] RX given for glasses Warm compresses, artificial tears, hydration and [place] 3 fatty acids (fish oil, flax seed, etc) for dry eye symptoms. Start Xiidra 2x/day. Return 6 weeks or sooner as needed. jmerlin Not available 07/18/2016 10:29:44 12/15/2017 [id number] Tobradex drops four times a day for seven days and it should conitnue to improve. Return with any increase in symptoms including pain, discharge, light sensitivity, or change in vision. jmerlin Not available 12/15/2017 10:12:03 Reason for Referral None Reported. Procedures Surgical History Date Name Laterality Status Provider Name and Address Organization Details Recorded Time 07/19/19 17 Refraction completed [facility] 07/18/2016 09:44:19 07/06/19 16 Fundus Photography completed Dennis Holden, [address], [address], [facility] 07/09/2015 09:03:40 07/06/19 16 Refraction completed [facility] 07/06/2015 15:33:28 Imaging Results None recorded. Procedure Notes None recorded. Medical Equipment None Reported. Allergies Allergen ID Allergen Name Allergen Category Reaction Reaction Severity Criticality Documentation Date Start Date Code Code System Note Provider Name and Address Organization Details Recorded Time 305784 iodine medicatio n Not available Not available Not available 07/06/2015 5933 RxNorm [facility] 6 15:18:45 523092 Demerol medicatio n Not available Not available Not available 07/06/2015 05081 1 RxNorm [facility] [place] [facility] 6 15:18:45 426823 acetamino phen / oxycodone medicatio n Not available Not available Not available 07/06/2015 48618 3 RxNorm [facility] [place] [facility] 6 15:18:45 037314 shellfish derived food,medi cation Not available Not available Not available 07/06/2015 91295 UNK [facility] 15:18:45 Medications Name Sig Start Date [...] SNOMED-CT Code Diagnosis ICD10 Code Diagnosis Note [id number] Dennis Mari Holden, [facility], [address] [address] 07/06/2015 14:58:29 07/06/2015 16:23:42 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 refer to ophthalmol ogy. scheduled to see Dr. Collins for OCT, exam and VF on August. Dry eyes 242645091 H04.1 29 rec AT d Retinal tear 74809993 H3 3.309 well sealed tear with laser temp OD. reviewed syp of rd, rtc if occur. Presbyopia 54221800 H52. 4 [id number] Cody Arshad, OD [facility], [address] [address] 07/18/2016 08:57:54 07/18/2016 10:20:43 Myopia 93340169 H52.13 Presbyopia 91382282 H52. 4 Dry eyes 677715136 H04.1 29 Not relieved with constant use of ATs, warm compresses Retinal tear 06747003 H3 3.301 well sealed [id number] Cody Arshad, OD [facility], [address] [address] 12/15/2017 09:17:25 12/15/2017 10:11:50 Acute atopic conjunctivitis 09425396 H10.11 Secondary to probable foreign body (no FB seen) Health Concerns Section Related Observation LastModified by Organization Detai ls LastModified Time None Recorded Concern Status LastModified by Organization Details LastModified Time None Recorded Advance Directives Directive None Recorded Payers Encounter Date Sequence Insurance Name Policy Number Policy Reyna Covered Member ID Reyna Member ID Guarantor Name 07/06/2015 1 [place] [employer] Keaton Cullen [id number] Keaton Cullen 07/06/2015 2 [place] Keaton Cullen [id number] Keaton Cullen 07/18/2016 1 MEDICARE B[place]: [facility] Keaton Cullen [id number] Keaton Cullen 07/18/2016 2 [place] [facility] Keaton Cullen [id number] Keaton Cullen 12/15/2017 1 MEDICARE B-[place]: [facility] Keaton Cullen [id number] Keaton Cullen 12/15/2017 2 [place] [facility] Keaton Cullen [id number] Keaton Cullen Notes Date Note Type Note Provider Name and Address Organization Details Recorded Time 07/18/2016 text/html Diabetic Eye ExamReported bypatient.Quality: type II diabetes Context:no history of retinopathy Associated Symptoms:normal visionDry EyeReported bypatient.Location :bilateral Severity:no pain Duration:constant Onset/Timing:recur rent episode Context:taking drops as indicated Modifying Factors:nothing gives relief; OTC medication Associated Symptoms:irritatio n; eyes feel sticky all the time Cody Arshad OD [address] [place], [address], [facility] 07/18/2016 10:29:56 12/15/2017 text/html Ocular PainReported bypatient.Location :right; eye(s) Severity:severe;wo rsening Duration:2 days Onset/Timing:sudde n Context:prior eye surgery(Detached Retina) Modifying Factors:eye protection worn; eye(s) flushed immediately after chemical exposure; nothing relieves Associated Symptoms:normal vision; no diplopia;photophob ia;redness;tearing ;pain level 7/10;foreign body sensation Yesterday thinks a bug came out. No discharge, recent URI, crusting. Cody Arshad OD [address] [place], [address], [facility] 12/15/2017 10:12:58
== END 2024-05-30 15:53 | disposition home or self-care (01) ==
LOC: HO.HMCH 15:04
PROVIDERS: PCP Internal Medicine
DX: Z23 Encounter for immunization (principal)

== ENCOUNTER → 2024-05-30 15:03 | Outpatient (BNVA) | payer OTHER, SELFPAY | PROVIDERS: PCP Internal Medicine | DX: Z00.00 Encounter for general adult medical examination without abnormal findings (principal); Z23 Encounter for immunization; M19.011 Primary osteoarthritis, right shoulder; E11.42 Type 2 diabetes mellitus with diabetic polyneuropathy; R10.13 Epigastric pain; R68.81 Early satiety; R13.10 Dysphagia, unspecified; M47.817 Spondylosis without myelopathy or radiculopathy, lumbosacral region; M43.16 Spondylolisthesis, lumbar region; R20.2 Paresthesia of skin; G47.00 Insomnia, unspecified; I10 Essential (primary) hypertension; F33.9 Major depressive disorder, recurrent, unspecified; J44.9 Chronic obstructive pulmonary disease, unspecified; K21.9 Gastro-esophageal reflux disease without esophagitis; E78.00 Pure hypercholesterolemia, unspecified; E66.9 Obesity, unspecified; Z68.33 Body mass index [BMI] 33.0-33.9, adult; G47.33 Obstructive sleep apnea (adult) (pediatric); Z79.4 Long term (current) use of insulin; Z71.3 Dietary counseling and surveillance | CPT/HCPCS: 90471; 90656; 99386 ==

== ENCOUNTER 2024-06-21 08:27 | Outpatient (AMB) | payer OTHER, SELFPAY ==
--- OUTSIDE RECORDS SUMMARY | 2024-06-21 08:51 | XMS_ITS | Data Portability ---
Author Organization [employer] Address [address] [place] [address] Care Team Providers Care Environmental Science Program Director Name Role Phone [facility] Referring [...] Not Available Not Available Not Available FreeStyle [place] Lite kit active Not Available Not Available [...] Code Diagnosis ICD10 Code Diagnosis Note 3611 Eas Ohara MD Main - instED [address] [place] [address] 11/15/2021 12:48:47 11/25/2021 13:00:36 Dyspnea [id number] R06.00 Health Concerns Section Related Observation LastModified by Organization Detai ls LastModified Time None Recorded Concern Status LastModified by Organization Details LastModified Time None Recorded Advance Directives Directive None Recorded Payers Encounter Date Sequence Insurance Name Policy Number Policy Reyna Covered Member ID Reyna Member ID Guarantor Name 11/15/2021 1 [facility] - DOS PRIOR TO 2022 - DUAL ELIGIBLE (MEDICARE REPLACEMENT/ADV ANTAGE - HMO) Keaton Cullen [id number] Keaton Cullen Notes Date Note Type Note [...] ..................... ..................... ..................... ..................... ..................... ..................... ............... 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 Pt admits that laying flat and exerting himself causes SOB. Pt states he uses his nebulizer but it doesn? t help much. No noted edema. 12 lead showed RBBB. Pt doesn? t think he had that before. [facility] advised that Pt needs to follow up with PCP for echo/chest X-ray but if the tightness or sob got worse he needed to go to ED. Red flags discussed ..................... ..................... ..................... ..................... ..................... ..................... ............... Disposition: Fulfilled Esa Ohara MD [address] [facility],[address], [place], [address], [place] - KINGA MCCARTNEY 11/15/2021 19:11:47
--- OUTSIDE RECORDS SUMMARY | 2024-06-21 08:51 | XMS_ITS | Data Portability ---
Author Organization [facility], [facility] Address [address] [place] [address] Care Team Providers Care Laboratory Courier Name Role Phone DENNIS HOLDEN Appellate Court Clerk Unavailable Assessment No assessment recorded. Plan of Treatment Reminders Order Date Submit Date Provider Last Modified By Organization Details Last Modified Time Details Appointments None recorded. Lab None recorded. Referral None recorded. Procedures None recorded. Surgeries None recorded. Imaging None recorded. Medication Orders TobraDex 0.3 %-0.1 % eye drops,susp ension 2017 018 [facility]FACE [facility][id number], [address], [place], [id number], 8 10:09:33 Xiidra 5 % eye drops in a dropperett e 2016 017 INTERFACE [facility][id number], [address], [place], [id number], 7 10:10:00 Patient TargetsNo targets recorded. Patient Instructions Encounter Date Encounter Id Patient Instructions Last Modified By Organization Details Last Modified Time 07/06/2015 [id number] RTC 6 months for HVF 24-2SS with IOP check or per Dr. Collins. jmandile Not available 07/13/2015 13:43:44 07/18/2016 [id number] RX given for glasses Warm compresses, artificial tears, hydration and [place] 3 fatty acids (fish oil, flax seed, etc) for dry eye symptoms. Start Xiidra 2x/day. Return 6 weeks or sooner as needed. jmerlin Not available 07/18/2016 10:29:44 12/15/2017 [id number] Tobradex drops four times a day for seven days and it should conitnue to improve. Return with any increase in symptoms including pain, discharge, light sensitivity, or change in vision. jmerlin Not available 12/15/2017 10:12:03 Reason for Referral None Reported. Procedures Surgical History Date Name Laterality Status Provider Name and Address Organization Details Recorded Time 07/19/19 17 Refraction completed [facility] 07/18/2016 09:44:19 07/06/19 16 Fundus Photography completed Dennis Holden, [address], [address], [facility] 07/09/2015 09:03:40 07/06/[address] [facility] 07/06/2015 15:33:28 Imaging Results None recorded. Procedure Notes None recorded. Medical Equipment None Reported. Allergies Allergen ID Allergen Name Allergen Category Reaction Reaction Severity Criticality Documentation Date Start Date Code Code System Note Provider Name and Address Organization Details Recorded Time 885282 iodine medicatio n Not available Not available Not available 07/06/2015 5933 RxNorm [facility] 6 15:18:45 679824 Demerol medicatio n Not available Not available Not available 07/06/2015 58850 1 RxNorm [facility] 6 15:18:45 069649 acetamino phen / oxycodone medicatio n Not available Not available Not available 07/06/2015 02749 3 RxNorm [facility] 6 15:18:45 792126 shellfish derived food,medi cation Not available Not available Not available 07/06/2015 49492 UNK [facility] 6 15:18:45 Medications Name Sig [...] SNOMED-CT Code Diagnosis ICD10 Code Diagnosis Note [id number] Dennis Mari Holden, [facility], [address] [address] 07/06/2015 14:58:29 07/06/2015 16:23:42 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 refer to ophthalmol ogy. scheduled to see Dr. Collins for OCT, exam and VF on August. Dry eyes 823050045 H04.1 29 rec AT d Retinal tear 72390612 H3 3.309 well sealed tear with laser temp OD. reviewed syp of rd, rtc if occur. Presbyopia 62428569 H52. 4 [id number] Cody Arshad, OD [facility], [address] [address] 07/18/2016 08:57:54 07/18/2016 10:20:43 Myopia 01216377 H52.13 Presbyopia 47998404 H52. 4 Dry eyes 923303214 H04.1 29 Not relieved with constant use of ATs, warm compresses Retinal tear 51340065 H3 3.301 well sealed [id number] Cody Arshad, OD [facility], [address] [address] 12/15/2017 09:17:25 12/15/2017 10:11:50 Acute atopic conjunctivitis 68938773 H10.11 Secondary to probable foreign body (no FB seen) Health Concerns Section Related Observation LastModified by Organization Detai ls LastModified Time None Recorded Concern Status LastModified by Organization Details LastModified Time None Recorded Advance Directives Directive None Recorded Payers Encounter Date Sequence Insurance Name Policy Number Policy Reyna Covered Member ID Reyna Member ID Guarantor Name 07/06/2015 1 [place] [employer] Keaton Cullen [id number] Keaton Cullen 07/06/2015 2 [place] [facility] Keaton Cullen [id number] Kaeton Cullen 07/18/2016 1 [place] [facility] Keaton Cullen [id number] Keaton Cullen 07/18/2016 2 [place] [facility] Keaton Cullen [id number] Keaton Cullen 12/15/2017 1 [place] [facility] Keaton Cullen [id number] Keaton Cullen 12/15/2017 2 [place] [facility] Keaton Cullen [id number] Keaton Cullen Notes Date Note Type Note Provider Name and Address Organization Details Recorded Time 07/18/2016 text/html Diabetic Eye ExamReported bypatient.Quality: type II diabetes Context:no history of retinopathy Associated Symptoms:normal visionDry EyeReported bypatient.Location :bilateral Severity:no pain Duration:constant Onset/Timing:recur rent episode Context:taking drops as indicated Modifying Factors:nothing gives relief; OTC medication Associated Symptoms:irritatio n; eyes feel sticky all the time Cody Arshad OD [address] [place], [address], [facility] 07/18/2016 10:29:56 12/15/2017 text/html Ocular PainReported bypatient.Location :right; eye(s) Severity:severe;wo rsening Duration:2 days Onset/Timing:sudde n Context:prior eye surgery(Detached Retina) Modifying Factors:eye protection worn; eye(s) flushed immediately after chemical exposure; nothing relieves Associated Symptoms:normal vision; no diplopia;photophob ia;redness;tearing ;pain level 7/10;foreign body sensation Yesterday thinks a bug came out. No discharge, recent URI, crusting. Cody Arshad OD [address] [place], [address], [facility] 12/15/2017 10:12:58
--- OUTSIDE RECORDS SUMMARY | 2024-06-21 08:51 | XMS_ITS | Clinical Summary ---
Author Organization [address] [facility] Address [address] [place] [address] Phone Care Team Providers Care Technologist Development Name Role Phone Oliverio Emerson MD Primary [...] 9:15 AM EDT Consult Orthopedic Surgery - [place] [address] [phone] Mike Velasquez DPM [address] [address] Health Maintenance Due Date Last Done Comments [...] 2023 Influenza Vaccine (#1) 2023 RSV Immunization Adult Patie nts (1 - Risk 60-74 years 1-dose series) [...] complete this topic Insurance MEDICAID - [place] [employer] MEDICARE Member Subscriber Plan / Payer (Ef fective 2018-Present) Name:Keaton Cullen Relation to Subscriber:Self Name:Keaton Cullen Payer ID:[id number] Group ID:[id number] Type:Not on file Address: [address] [place] [address] Care Teams Technologist Development Relationship Specialty Start Date End Date Oliverio Emerson MD [address] [place] [address] [address] JUSTINO Christiansen PCP - General 02/21/22
[2024-06-21 08:59] VITALS: BP 160/100; PULSE 89; BMI 33.5
--- NOTE | 2024-06-21 08:59 | MHC.OFFVIS ---
Vital Signs 06/21/24 08:59 Height 5 ft 8 in Weight 220 lb 7.396 oz BMI 33.5 BP 160/100 H Blood Pressure Location Lt brachial Position Sitting Pulse 89 Pulse Source Monitor Intake Visit Reasons: followup sob 2 wks chest pain Allergies iodine [Iodine] Allergy (Severe, Verified 06/09/24 20:49) Anaphylaxis lisinopril Allergy (Severe, Verified 06/09/24 20:49) Rash metformin Allergy (Severe, Verified 06/09/24 20:49) diarrhea shellfish derived Allergy (Severe, Verified 06/09/24 20:49) Anaphylaxis meperidine [From Demerol] Allergy (Mild, Verified 06/09/24 20:49) RASH oxycodone [From Percocet] Adverse Reaction (Mild, Verified 06/09/24 20:49) MOUTH DRYNESS,RASH Mercury Detox Allergy (Severe, Uncoded 06/09/24 20:49) Throat closing (charcoal) Medication List - Last Reconciled 06/21/24 by FABRICIO Chapman albuterol sulfate 2.5 mg (3 mL) continuous nebulization QID PRN 30 days albuterol sulfate 90 mcg/actuation (Ventolin HFA) 2 puffs PO QID PRN 90 days aspirin 81 mg PO DAILY azithromycin 250 mg PO 3XW 28 days blood sugar diagnostic (FreeStyle Lite Strips) USE DIRECTED TO TEST 5 TIMES DAILY. blood-glucose sensor (FreeStyle Lola 3 Plus Sensor device) As directed budesonide 0.5 mg (2 mL) inhalation BID 30 days cholecalciferol (vitamin D3) 25 mcg PO DAILY clotrimazole 1% 1 appl topical BID 4 weeks epinephrine (EpiPen 2-Dread) 0.3 mg (0.3 mL) IM Q4H PRN fluticasone propionate 50 mcg/actuation (Flonase Allergy Relief) 2 sprays intranasal DAILY PRN gvynzgthxel-aeqwvhswl-wztjtiur 200-62.5-25 mcg (Trelegy Ellipta) 1 inh inhalation DAILY 30 days gabapentin 1 capsule BID and 2 capsules at bedtime orally -(4 capsules a day in total) PRN; hydralazine 50 mg PO TID 90 days hydrochlorothiazide 25 mg PO DAILY ipratropium-albuterol 0.5 mg-3 mg(2.5 mg base)/3 mL 3 mL inhalation Q6H PRN latanoprost 0.005% 1 drp ophthalmic (eye) DAILY lorazepam 1 to 2 tablets orally twice a day as needed; PRN; 30 days melatonin 5 mg PO BEDTIME PRN montelukast 10 mg PO QPM olmesartan 40 mg PO DAILY omeprazole 40 mg PO DAILY prednisone 10 mg PO DIRECTED 8 days tamsulosin 0.4 mg PO DAILY 90 days tirzepatide (Mounjaro) 5 mg (0.5 mL) subcut QWEEK zolpidem 10 mg PO BEDTIME PRN 30 days HPI HPI followup sob 2 wks chest pain: Details: Keaton is a 59 year old male with past medical history of hypertension, hyperlipidemia, diabetes, sleep apnea with O2 use, right bundle branch block, anxiety, asthma who presents for follow-up. Today he reports he has been getting discomfort in his left chest with deep inspiration. He also has been noticing tightness across his upper chest with physical activity for the last few weeks. He has a history of asthma but states this is not related to asthma. He has been breathing comfortably with no recent exacerbation. No PND, orthopnea or edema. No heart palpitations, lightheadedness, presyncope. He has been doing only light activities recently due to his concern for his heart. He is taking meds as directed. Amlodipine has not been in his pill pack for some time. [facility] Medical History Diabetes mellitus RBBB (right bundle branch block) Laryngospasm Chronic bronchitis Supplemental oxygen dependent Onychomycosis Hx of fracture of fibula GERD without esophagitis Asthma-COPD overlap syndrome Diastasis recti JOSÉ (obstructive sleep apnea) Bursitis Low back pain Claustrophobia Hemoptysis Anxiety Insomnia Migraine Pure hypercholesterolemia Benign essential hypertension Type 2 diabetes mellitus with hyperglycemia, without long-term current use of insulin Stasis edema of both lower extremities Lumbar degenerative disc disease Obesity (BMI 30-39.9) Chronic rhinitis Hiatal hernia Erectile dysfunction Surgical History History of bronchoscopy History of endoscopy Hx of colonoscopy Hx of cardiac catheterization History of nasal surgery History of carpal tunnel surgery Family History Father No problems noted. Mother Chronic kidney disease (CKD) Heart attack Other Mental health problem Social History Household Members: Spouse, Family and Children Household Members Other:: adult children Housing: House Are you a primary home care attendant to a significant other at home: No Do you presently have visiting nurse or other home services: Yes ([employer]IC[employer]) Alcohol intake: never Patient Tobacco Use Status: Never used Tobacco e-Cigarette/Vaping Use: Never Used Second Hand Smoke Exposure: Yes (employees smoked atwork) service: No Current occupational status: disabled Cognitive needs: No Hearing needs: No Vision needs: No Review of Systems Const All systems reviewed & are unremarkable except as noted in HPI and below Denies weakness ENT Denies dizziness Card Denies chest pain, Reports chest pain at rest, Reports chest pain with activity, Denies syncope, Denies rapid heart rate, Denies pedal edema, Denies edema, Denies leg edema, Denies lightheadedness, Reports palpitations, Reports dyspnea on exertion and Reports orthopnea Resp Denies cough and Reports dyspnea on exertion GI Denies hematochezia and Denies change in stool character Musc Denies abnormal gait, Denies muscle cramps, Denies muscle weakness, Denies numbness, Denies radiating pain into limb and Denies tingling Neuro Denies abnormal gait, Denies dizziness, Denies syncope, Denies numbness, Denies tingling and Denies weakness Endo Reports palpitations Physical Exam Vital Signs: Last Vital Signs Pulse 89 06/21/24 08:59 BP 160/100 H 06/21/24 08:59 BMI result Body Mass Index 33.5 Const General: cooperative, healthy appearing, comfortable and no acute distress Orientation/consciousness: patient oriented x3 Neck Neck: Yes normal visual inspection and Yes no JVD Resp Effort & Inspection: normal respiratory effort Auscultation: clear to auscultation bilaterally, no crackles, no rales, no rhonchi and no wheezes Cardio Rate: regular rate Rhythm: regular rhythm Heart sounds: S1 normal heart sound present, S2 normal heart sound present, no gallops, no murmurs and no rubs Neuro General: patient oriented x3 Extrem General: Yes normal to inspection, No no pedal edema and No calf tenderness Psych Appearance: grossly normal Mental Status: mental status grossly normal Speech and movement: Normal speech and movement present Office Procedures EKG Details: Today, read by me, normal sinus rhythm with sinus arrhythmia, right bundle branch block, rate 89, QTC 459 millisecond [id number], Complete Results Reviewed Results Reviewed: Cardiac catheterization- 2018-mild luminal irregularities in the LAD, but otherwise unremarkable coronaries. Echocardiogram 2022, LVEF 59%. No significant valvular findings. Ascending aortic size 3.9 cm. For his BSA, top normal to borderline enlarged. Pulmonary function [id number] obstructive airway disease with significant response to bronchodilator therapy, consistent with asthma/COPD overlap syndrome. Assessment & Plan Assessment & Plan (1) Chest discomfort: Code(s): R07.89 - Other chest pain Category: Medical Plan: Report of 2 types of chest discomfort, tightness in the upper chest with exertion and sharp left chest pain with deep inspiration. Informed him the discomfort with deep inspiration is noncardiac. He does have multiple cardiac risk factors including diabetes, hypertension, hyperlipidemia, obesity. Cardiac catheterization from 2018 showed no significant CAD. Last echo 05/02/2022 showed EF 59%, no valve abnormalities, ascending aorta 3.9 cm. EKG done today shows sinus rhythm with sinus arrhythmia, right bundle branch block, rate 89. Not likely to have obstructive CAD however Will check a stress echocardiogram for further evaluation. Plan to call him with results. His blood pressure is elevated which can be contributing to his symptoms. Reviewed all the above with him. Will start him on amlodipine 5 mg daily. Continue with risk factor modification. Continue aspirin indefinitely. He is not on statin for unclear reason. I do not see this listed as an allergy for him. Recommend statin use if no contraindication. Cardiology follow-up 6 weeks, sooner if needed. (2) Hypertension: Code(s): I10 - Essential (primary) hypertension Category: Medical Qualifiers: Hypertension type: primary hypertension Qualified Code(s): I10 - Essential (primary) hypertension Plan: Blood pressure elevated today 160/100. He had been on amlodipine in the past however it is not on his list today. Will restart amlodipine 5 mg daily. Continue hydralazine, olmesartan, hydrochlorothiazide. (3) RBBB: Code(s): I45.10 - Unspecified right bundle-branch block Category: Medical Plan: Chronic finding. (4) JOSÉ (obstructive sleep apnea): Comment: JOSÉ W/CPAP-does not always use Code(s): G47.33 - Obstructive sleep apnea (adult) (pediatric) Category: Medical Plan: He does not wear CPAP. He uses oxygen during the night. (5) Pure hypercholesterolemia: Code(s): E78.00 - Pure hypercholesterolemia, unspecified Category: Medical Plan: [place] LDL goal less than 70 in patient with diabetes. He is not on statin for unclear reason. Would recommend start of statin therapy unless contraindicated. Plan Time spent on chart review, documentation, interview and assessment Orders: Orders CA echo stress exercise Today Zuri Dudley NP-C E11.9 - Type 2 diabetes mellitus without complications, I10 - Essential (primary) hypertension, I45.10 - Unspecified right bundle-branch block, R07.89 - Other chest pain, Z79.4 - group home (current) use of insulin Medications: New amlodipine BP medication 5 mg PO DAILY 90 tabs 3RF Zuri Dudley NP-C Changed From gabapentin 1 capsule BID and 2 capsules at bedtime orally -(4 capsules a day in total) 28 days 112 caps 0RF M53.3 - Sacrococcygeal disorders, not elsewhere classified, M54.10 - Radiculopathy, site unspecified To gabapentin 1 capsule BID and 2 capsules at bedtime orally -(4 capsules a day in total) PRN; M53.3 - Sacrococcygeal disorders, not elsewhere classified, M54.10 - Radiculopathy, site unspecified Oliverio Emerson MD Coding Level of Care Code Est Pt Level 4 (36707) Complex EM visit Add On G2211 Diagnoses Chest discomfort R07.89 Primary hypertension I10 Hypertension type: primary hypertension RBBB I45.10 JOSÉ (obstructive sleep apnea) G47.33 Pure hypercholesterolemia E78.00 CPT Codes EKG - CPT: 84623-Eiirxoismzechxqho, Complete ([id number]) Time Spent (min) 28
== END 2024-06-21 09:35 | disposition home or self-care (01) ==
LOC: HO.HCS 08:28
PROVIDERS: PCP Internal Medicine; Visit Provider Nurse Practitioner Family
DX: R07.89 Other chest pain (principal); I10 Essential (primary) hypertension; I45.10 Unspecified right bundle-branch block; G47.33 Obstructive sleep apnea (adult) (pediatric); E78.00 Pure hypercholesterolemia, unspecified
CPT/HCPCS: 93010; 99214; G2211

== ENCOUNTER → 2024-06-21 08:27 | Outpatient (BNVA) | payer OTHER, SELFPAY | PROVIDERS: PCP Internal Medicine; Visit Provider Nurse Practitioner Family | DX: I10 Essential (primary) hypertension (principal); I45.10 Unspecified right bundle-branch block; R07.89 Other chest pain; E78.5 Hyperlipidemia, unspecified; G47.33 Obstructive sleep apnea (adult) (pediatric); E78.00 Pure hypercholesterolemia, unspecified; M53.3 Sacrococcygeal disorders, not elsewhere classified; M54.10 Radiculopathy, site unspecified; Z79.4 Long term (current) use of insulin; Z99.81 Dependence on supplemental oxygen | CPT/HCPCS: 93005; 99212 ==

== ENCOUNTER 2024-07-30 09:51 | Outpatient (AMB) | payer OTHER, SELFPAY ==
--- NOTE | 2024-07-30 09:53 | A.OFFVIS_ITS ---
Vital Signs 07/30/24 09:54 Height 5 ft 8 in Weight 222 lb 10.67 oz BMI 33.9 BP 134/90 H Blood Pressure Location Lt brachial Position Sitting Pulse 95 Pulse Source Pulse Oximeter Pulse Oximetry (%) 95 Oxygen Delivery Method Room Air Intake Visit Reasons: Asthma Media Librarian Required: No Accompanied by: Self / Same As Patient Allergies iodine [Iodine] Allergy (Severe, Verified 07/30/24 09:56) Anaphylaxis lisinopril Allergy (Severe, Verified 07/30/24 09:56) Rash metformin Allergy (Severe, Verified 07/30/24 09:56) diarrhea shellfish derived Allergy (Severe, Verified 07/30/24 09:56) Anaphylaxis meperidine [From Demerol] Allergy (Mild, Verified 07/30/24 09:56) RASH oxycodone [From Percocet] Adverse Reaction (Mild, Verified 07/30/24 09:56) MOUTH DRYNESS,RASH Mercury Detox Allergy (Severe, Uncoded 06/09/24 20:49) Throat closing (charcoal) HPI Comments Details: The patient is a 59-year-old gentleman with history of reflux disease, hiatal hernia and uncontrolled asthma. He has had multiple exacerbations required prednisone. At least twice in the last month. He has had x-rays demonstrating no acute disease although he still having worsening respiratory symptoms specially at nighttime. He did have a CBC which is unremarkable. He has also had allergy testing in the past and he is allergic to multiple things. He has been taking antihistamines and leukotriene inhibitors without any significant improvement in his symptoms. Dealing the have some is prednisone. He also describes a chronic bronchitis with mucus production every night and congestion in the chest area. He does know about the reflux and continues try reflux diet. He does have a specialist for this. We talked about the importance of reflux therapy and also sleeping elevated to minimize micro aspirations into the lungs. Patient also has a hard time sleeping. He wakes up multiple times with shortness of breath. He also wakes up tired with headaches. His [place] score is elevated 10/24. The patient has never had a sleep study. He will have to get a sleep study at this time. 08/03/2023 the patient is here for a pulmonary follow-up visit. Overall the patient has been doing well from a respiratory status. Has been responding well to the Trelegy inhaler. He has no longer using Daliresp. He continues uses singular. In addition to that has not had any asthma flare-ups which is reassuring. The patient has been complaining of abdominal discomfort. He had an injury or trauma to his abdominal muscles and afterwards ended up with a lump in the abdomen. He went to the ER and was recommended he follow-up with his primary care doctor. I do believe he has a CT scan coming up in the next few weeks. In the meantime he is struggling with the CPAP. The mask was causing him to have ulcerations of the nasal bridge. Otherwise he has been using the oxygen for sleep. I did recommend he go back to the CPAP. I did have an F30 mask available that he can use. The patient should continue to use CPAP every night. I will try to send supplies if he does tolerate the F30 mask to the [employer] in order for him to stay active with his usage and also with new supplies. 01/24/2024 the patient is here for a pulmonary follow-up visit. The patient overall is doing okay. He has been having issues while going through some family complex right now. His blood pressure has been slightly elevated because of that. He has been having hard time sleeping. He does use Ambien send to the pharmacy. He can also take some melatonin as well to try to help a little bit more. He has not been using the CPAP. He can not tolerate it. He has tried multiple masks and he has been fighting with it. Therefore, he finds that the oxygen is very helpful for him he does use it every night. Therefore he can discontinue the CPAP and just continue with oxygen supplementation at nighttime. He does not need any oxygen with activity at this time. The patient does uses respiratory inhalers as prescribed. Will follow-up in 6 months if he has any issues prior to that he will call for an earlier assessment. 07/30/2024The patient is here for pulmonary Follow-up visit. Overall the patient has been doing about the same. Still complaining of dyspnea on exertion. Moderate severity. the patient has gained some weight. Probably affecting him some. He does use respiratory inhalers with good effect. Does complaint of difficulty swallowing. Feels like his reflux is active. He does take a PPI but does not always follow reflux diet. He also sleeps flat since he sleeps on his side. We did talk about the importance of sleeping elevated. And also following closely reflux diet. He has already had endoscopies in the past and required esophageal dilation. with a review his chest x-ray that he had recently. Seems to have some increased pronounced hilum. therefore, based on the ongoing symptoms and the abnormal chest x-ray will go ahead and request a CT scan of the chest. In the meantime will increase his antacid medication and the patient will try to sleep elevated with head of the bed elevated with bed risers. He will try to continue with the reflux diet. Will continue with current respiratory therapy since his exam is stable. He is also going to be following up with Cardiology for additional testing including a stress test. Will follow-up in 2-3 months since his progress. [facility] Medical History (Updated 07/30/24 @ 10:15 by Alexis Oates MD) Dyspnea Standard chest x-ray abnormal Diabetes mellitus RBBB (right bundle branch block) Laryngospasm Chronic bronchitis Supplemental oxygen dependent Onychomycosis Hx of fracture of fibula GERD without esophagitis Asthma-COPD overlap syndrome Diastasis recti JOSÉ (obstructive sleep apnea) Bursitis Low back pain Claustrophobia Hemoptysis Anxiety Insomnia Migraine Pure hypercholesterolemia Benign essential hypertension Type 2 diabetes mellitus with hyperglycemia, without long-term current use of insulin Stasis edema of both lower extremities Lumbar degenerative disc disease Obesity (BMI 30-39.9) Chronic rhinitis Hiatal hernia Erectile dysfunction Surgical History History of bronchoscopy History of endoscopy Hx of colonoscopy Hx of cardiac catheterization History of nasal surgery History of carpal tunnel surgery Family History Father No problems noted. Mother Chronic kidney disease (CKD) Heart attack Other Mental health problem Social History Household Members: Spouse, Family and Children Household Members Other:: adult children Housing: House Are you a primary intensive care anaesthetist to a significant other at home: No Do you presently have visiting nurse or other home services: Yes ([employer]) Alcohol intake: never Patient Tobacco Use Status: Never used Tobacco e-Cigarette/Vaping Use: Never Used Second Hand Smoke Exposure: Yes (employees smoked atwork) service: No Current occupational status: disabled Cognitive needs: No Hearing needs: No Vision needs: No Review of Systems Const Denies chills, Denies fatigue, Denies fever(s), Reports weight gain and Denies weight loss ENT Reports dysphagia and Denies dizziness Card Denies chest pain, Denies leg edema, Denies lightheadedness, Denies palpitations, Reports dyspnea on exertion, Denies orthopnea and Denies other Resp Denies cough, Reports dyspnea on exertion and Reports wheezing GI Denies hematochezia, Denies change in stool character, Reports dysphagia, Reports dyspepsia and Reports heartburn Musc Denies abnormal gait, Denies muscle weakness, Denies numbness, Denies radiating pain into limb and Denies tingling Neuro Denies abnormal gait, Denies dizziness, Denies numbness and Denies tingling Endo Denies fatigue and Denies palpitations Aller/Immun Reports wheezing Physical Exam Vital Signs: Last Vital Signs Pulse 95 07/30/24 09:54 BP 134/90 H 07/30/24 09:54 Pulse Ox 95 07/30/24 09:54 Oxygen Delivery Method Room Air 07/30/24 09:54 BMI result Body Mass Index 33.9 Const General: cooperative, healthy appearing and comfortable Orientation/consciousness: patient oriented x3 Limitations: no limitations HEENT Head: Yes normocephalic Neck Neck: Yes normal visual inspection and Yes full ROM Chest Chest palpation & inspection: normal inspection of the chest Resp Effort & Inspection: normal respiratory effort and able to speak in complete sentences Auscultation: diminished lung sounds Cardio Rate: regular rate Rhythm: regular rhythm Heart sounds: normal S1 and S2 GI Palpation (GI): Soft to palpation Skin General skin exam: no rashes or lesions noted Neuro General: patient oriented x3 Extrem General: Yes no clubbing, cyanosis or edema Assessment & Plan Assessment & Plan (1) Asthma-COPD overlap syndrome: Code(s): J44.9 - Chronic obstructive pulmonary disease, unspecified Category: Medical (2) Hiatal hernia: Code(s): K44.9 - Diaphragmatic hernia without obstruction or gangrene Category: Medical (3) Chest discomfort: Code(s): R07.89 - Other chest pain Category: Medical (4) Standard chest x-ray abnormal: Code(s): R93.89 - Abnormal findings on diagnostic imaging of other specified body structures Category: Medical Plan continue Trelegy 200mg DARÍO as needed continue Singulair stopped CPAP continue oxygen supplementation while sleeping CT chest Bloodwork continue PPI Add Pepcid sleep with HOB elevated with bed risers zolpidem Follow-up with cardiac workup F/U 6 months Orders: Orders Immunoglobulin E Today K44.9 - Diaphragmatic hernia without obstruction or gangrene, R06.00 - Dyspnea, unspecified Ferritin Today K44.9 - Diaphragmatic hernia without obstruction or gangrene, R06.00 - Dyspnea, unspecified CT chest wo IV con Today K44.9 - Diaphragmatic hernia without obstruction or gangrene, R07.89 - Other chest pain, R93.89 - Abnormal findings on diagnostic imaging of other specified body structures IRON PROFILE Today K44.9 - Diaphragmatic hernia without obstruction or gangrene, R06.00 - Dyspnea, unspecified Medications: New famotidine (Pepcid) 40 mg PO BEDTIME 30 tabs 1RF Refilled prednisone TAke 4 tabs for 2 days, then 3 tabs for 2 days, then 2 tabs for 2 days, then 1 tab for 2 days 10 mg PO DIRECTED 20 tabs 0RF 8 days Coding Level of Care Code Est Pt Level 4 (79289) Complex EM visit Add On G2211 Diagnoses Asthma-COPD overlap syndrome J44.9 Hiatal hernia K44.9 Chest discomfort R07.89 Standard chest x-ray abnormal R93.89 Time Spent (min) 18
[2024-07-30 09:54] VITALS: BP 134/90; PULSE 95; O2SAT 95; BMI 33.9
--- OUTSIDE RECORDS SUMMARY | 2024-07-30 10:41 | XMS_ITS | Data Portability ---
Author Organization [employer] Address [address] [place] [address] Care Team Providers Care Clinical Allergist Name Role Phone [facility] Referring [...] Not Available Not Available Not Available FreeStyle Lamona Lite kit active Not Available Not Available [...] Esa Ohara MD Main - [address] [address] [place] [address] 11/15/2021 12:48:47 11/25/2021 13:00:36 Dyspnea 907523915 R06.00 Health Concerns Section Related Observation LastModified by Organization Detai ls LastModified Time None Recorded Concern Status LastModified by Organization Details LastModified Time None Recorded Advance Directives Directive None Recorded Payers Insurance Date Sequence Insurance Name Policy Number Policy Reyna Covered Member ID Reyna Member ID Guarantor Name 11/15/2021 1 [facility] - DOS PRIOR TO 2022 - DUAL ELIGIBLE (MEDICARE REPLACEMENT/ADV ANTAGE - HMO) Keaton Cullen [id number] Keaton Cullen Notes Date Note Type Note [...] ..................... ..................... ..................... ..................... ..................... ..................... ............... Drafter Note: Pt states he is on day 3 of chest tightness. Pt admits that laying flat and exerting himself causes SOB. Pt states he uses his nebulizer but it doesn? t help much. No noted edema. 12 lead showed RBBB. Pt doesn? t think he had that before. [facility] advised that Pt needs to follow up with PCP for echo/chest X-ray but if the tightness or sob got worse he needed to go to ED. Red flags discussed ..................... ..................... ..................... ..................... ..................... ..................... ............... Disposition: Fulfilled Esa Ohara MD [address] [facility],[address], [place], [address], [place] - KINGA MCCARTNEY 11/15/2021 19:11:47
--- OUTSIDE RECORDS SUMMARY | 2024-07-30 10:41 | XMS_ITS | Clinical Summary ---
Author Organization [facility] Address [address] [place] [address] Phone Care Team Providers Care Bakery Associate Name Role Phone Oliveiro Emerson MD Primary Care Provider Social History [...] Influencers of Health Screening 04/14/2023 COVID-19 Vaccine ( - 2023-2 5 season) 2023 RSV Immunization Adult Patie nts (1 - Risk 60-74 years 1-dose series) 2024 Diabetes: Annual Urine Albumin-Creatinine Ratio (uACR) 05/30/2024 Diabetes: Blood Sugar Contro l Test (HGBA1C) 05/30/2024 Influenza Vaccine (Season Ended) 2024 HIB Vaccines Aged Out No longer eligi [...] age to complete this topic Meningococcal B Vaccine Aged Out No l onger eligible based on patient's age to complete [...] ID:[id number] Group ID:[id number] Type:Not on file Address: [address] [place] [address] Care Teams Bakery Associate Relationship Specialty Start Date End Date Oliverio Emerson MD [address] [place] [address] [address] [place], [place] PCP - General 02/21/22
--- OUTSIDE RECORDS SUMMARY | 2024-07-30 10:41 | XMS_ITS | Data Portability ---
Author Organization [facility] Address [address] [place] [address] Care Team Providers Care Release Coordinator Name Role Phone DENNIS HOLDEN Provider Relations Specialist Unavailable Assessment No assessment recorded. Plan of Treatment Reminders Order Date Submit Date Provider Last Modified By Organization Details Last Modified Time Details Appointments None recorded. Lab None recorded. Referral None recorded. Procedures None recorded. Surgeries None recorded. Imaging None recorded. Medication Orders TobraDex 0.3 %-0.1 % eye drops,susp ension 2017 018 INTER[id number], [address], [place], [id number], 8 10:09:33 Xiidra 5 % eye drops in a dropperett e 2016 017 INTERFACE [facility] #[id number], [address], [place], [id number], 7 10:10:00 Patient TargetsNo targets recorded. Patient Instructions Encounter Date Encounter Id Patient Instructions Last Modified By Organization Details Last Modified Time 07/06/2015 [id number] RTC 6 months for HVF 24-2SS with IOP check or per Dr. Collins. jmandile Not available 07/13/2015 13:43:44 07/18/2016 [id number] RX given for glasses Warm compresses, artificial tears, hydration and Holden 3 fatty acids (fish oil, flax seed, etc) for dry eye symptoms. Start Xiidra 2x/day. Return 6 weeks or sooner as needed. jmerlin Not available 07/18/2016 10:29:44 12/15/2017 [id number] Tobradex drops four times a day for seven days and it should conitnue to improve. Return with any increase in symptoms including pain, discharge, light sensitivity, or change in vision. jmerlin Not available 12/15/2017 10:12:03 Reason for Referral None Reported. Procedures Surgical History Date Name Laterality Status Provider Name and Address Organization Details Recorded Time 07/19/19 17 Refraction completed [facility] 07/18/2016 09:44:19 07/06/19 16 Fundus Photography completed Dennis Holden, [address], [address], [facility] 07/09/2015 09:03:40 07/06/19 16 Refraction completed [facility] 07/06/2015 15:33:28 Imaging Results None recorded. Procedure Notes None recorded. Medical Equipment None Reported. Allergies Allergen ID Allergen Name Allergen Category Reaction Reaction Severity Criticality Documentation Date Start Date Code Code System Note Provider Name and Address Organization Details Recorded Time 844254 iodine medicatio n Not available Not available Not available 07/06/2015 5933 [facility] 6 15:18:45 969023 Demerol medicatio n Not available Not available Not available 07/06/2015 73614 1 [facility] 6 15:18:45 872545 acetamino phen / oxycodone medicatio n Not available Not available Not available 07/06/2015 27138 3 [facility] 6 15:18:45 737999 shellfish derived food,medi cation Not available Not available Not available 07/06/2015 56494 UNK [facility] 6 15:18:45 Medications Name Sig Start Date Stop Date Status Note LastModified by Organization Details LastModified Time alcohol swabs 70 % pads active Not Available Not Available Not Available alcohol sterile prep pads 100's USE UTD TID FOR GLUCOSE TESTING active Not Available Not Available No t Available Qvar 80 mcg/actuatio n Metered Aerosol [...] SNOMED-CT Code Diagnosis ICD10 Code Diagnosis Note [id number] Dennis Mari Holden, [facility] [address] [address] 07/06/2015 14:58:29 07/06/2015 16:23:42 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 refer to ophthalmol ogy. scheduled to see Dr. Collins for OCT, exam and VF on August. Dry eyes 501527238 H04.1 29 rec AT d Retinal tear 34448288 H3 3.309 well sealed tear with laser temp OD. reviewed syp of rd, rtc if occur. Presbyopia 30075541 H52. 4 [id number] Cody Arshad, OD [facility], [address] [address] 07/18/2016 08:57:54 07/18/2016 10:20:43 Myopia 59947602 H52.13 Presbyopia 78508691 H52. 4 Dry eyes 188565100 H04.1 29 Not relieved with constant use of ATs, warm compresses Retinal tear 72117100 H3 3.301 well sealed [id number] Cody Arshad, OD [facility], [address] [address] 12/15/2017 09:17:25 12/15/2017 10:11:50 Acute atopic conjunctivitis 57681823 H10.11 Secondary to probable foreign body (no FB seen) Health Concerns Section Related Observation LastModified by Organization Detai ls LastModified Time None Recorded Concern Status LastModified by Organization Details LastModified Time None Recorded Advance Directives Directive None Recorded Payers Encounter Date Sequence Insurance Name Policy Number Policy Reyna Covered Member ID Reyna Member ID Guarantor Name 07/06/2015 1 [place] [employer] Keaton Cullen [id number] Keaton Cullen 07/06/2015 2 [place] [facility] Keaton Cullen [id number] Keaton Cullen 07/18/2016 1 [place] [facility] Keaton Cullen [id number] Keaton Cullen 07/18/2016 2 [place] [facility] Keaton Cullen [id number] Keaton Cullen 12/15/2017 1 [place] [facility] Keaton Cullen [id number] Keaton Cullen 12/15/2017 2 [place] [facility] Keaton Cullen [id number] Keaton Cullen Notes Date Note Type Note Provider Name and Address Organization Details Recorded Time 07/18/2016 text/html Diabetic Eye ExamReported bypatient.Quality: type II diabetes Context:no history of retinopathy Associated Symptoms:normal visionDry EyeReported bypatient.Location :bilateral Severity:no pain Duration:constant Onset/Timing:recur rent episode Context:taking drops as indicated Modifying Factors:nothing gives relief; OTC medication Associated Symptoms:irritatio n; eyes feel sticky all the time Cody Arshad OD [address] [place], [address], [facility] 07/18/2016 10:29:56 12/15/2017 text/html Ocular PainReported bypatient.Location :right; eye(s) Severity:severe;wo rsening Duration:2 days Onset/Timing:sudde n Context:prior eye surgery(Detached Retina) Modifying Factors:eye protection worn; eye(s) flushed immediately after chemical exposure; nothing relieves Associated Symptoms:normal vision; no diplopia;photophob ia;redness;tearing ;pain level 7/10;foreign body sensation Yesterday thinks a bug came out. No discharge, recent URI, crusting. Cody Arshad OD [address] [place], [address], [facility] 12/15/2017 10:12:58
== END 2024-07-30 10:22 | disposition home or self-care (01) ==
LOC: HO.HPS 09:52
PROVIDERS: PCP Internal Medicine; Visit Provider Hospitalist
DX: J44.9 Chronic obstructive pulmonary disease, unspecified (principal); K44.9 Diaphragmatic hernia without obstruction or gangrene; R07.89 Other chest pain; R93.89 Abnormal findings on diagnostic imaging of other specified body structures
CPT/HCPCS: 99214; G2211

== ENCOUNTER → 2024-07-30 09:51 | Outpatient (BNVA) | payer OTHER, SELFPAY | PROVIDERS: PCP Internal Medicine; Visit Provider Hospitalist | DX: J44.9 Chronic obstructive pulmonary disease, unspecified (principal); R07.89 Other chest pain; R93.89 Abnormal findings on diagnostic imaging of other specified body structures; K44.9 Diaphragmatic hernia without obstruction or gangrene | CPT/HCPCS: 99212 ==

== ENCOUNTER 2024-08-03 19:33 | Emergency (ER) | payer OTHER, SELFPAY ==
--- NOTE | ~2024-08-03 | XR_ITS ---
CLINICAL HISTORY: cp 2 view chest x-ray Comparison: Chest x-ray from 05/01/2024 Findings: No consolidation or effusion. No pneumothorax. Imaged mediastinum and imaged osseous structures appear unchanged with mild lower thoracic vertebral height losses. IMPRESSION: No consolidation. This document has been electronically signed by: Brenden Garcias MD on 08/03/2024 21:33:29
--- NOTE | 2024-08-03 19:38 | ECG_ITS ---
Test Reason : CHEST PAIN Blood Pressure : */* mmHG Vent. Rate : 85 BPM Atrial Rate : 85 BPM P-R Int : 214 ms QRS Dur : 144 ms QT Int : 382 ms P-R-T Axes : 11 -28 -14 degrees QTcB Int : 454 ms Sinus rhythm with 1st degree A-V block Right bundle branch block Abnormal ECG When compared with ECG of 02-Oct-2023 20:57, No significant change was found Referred By: Jami Garcia Electronically Signed By: HUGO CLARKE MD
--- NOTE | 2024-08-03 19:45 | ED.CHESTPAIN ---
HPI - Chest Pain General Chief Complaint: Chest Pain Stated Complaint: chest pain/feels like he got punched Time Seen by Provider: 08/03/24 21:48 Source: patient Mode of arrival: ambulatory Limitations: no limitations History of Present Illness ED Provider: Dr. Lisette Carbone HPI narrative: patient comes to the emergency room complaining of 1 week of chest pain. However, patient states that he has been having intermittent chest pains for last 2 months. Patient was seen by Cardiology about a month ago, patient had chest pain since then. Patient denies any shortness of breath. Patient states that the chest pain is worse with movement or when he presses over the sternum. Patient states that when he lays flat and tries to get up that is when it hurts or with certain movements. patient states that he has a stress test scheduled in 5 days from today Related Data Home Medications ?Medication ?Instructions ?Recorded ?Confirmed aspirin 81 mg tablet,delayed 81 mg PO DAILY 02/18/20 06/21/24 release blood-glucose sensor (FreeStyle #1 ea 04/01/24 06/09/24 Lola 3 Plus Sensor device) Previous Rx's ?Medication ?Instructions ?Recorded latanoprost 0.005 % eye drops 1 drp ophthalmic (eye) DAILY #7.5 11/24/21 mL epinephrine 0.3 mg/0.3 mL 0.3 mg (0.3 mL) IM Q4H PRN 05/27/22 injection, auto-injector (EpiPen anaphylaxis #2 ea 2-Dread) albuterol sulfate 2.5 mg/3 mL 2.5 mg (3 mL) continuous 12/14/22 (0.083 %) solution for nebulization nebulization QID PRN shortness of breath or wheezing 30 days #480 mL lorazepam 0.5 mg tablet See Rx Instructions .Route 05/23/23 .COMPLEX PRN anxiety 30 days #60 tabs tamsulosin 0.4 mg capsule 0.4 mg PO DAILY 90 days #90 caps 06/21/23 fluticasone fur. 200 mcg-umeclid 1 inh inhalation DAILY 30 days #60 11/16/23 62.5 mcg-vilant 25 mcg ea inhalat.powder (Trelegy Ellipta) ipratropium 0.5 mg-albuterol 3 mg 3 ml inhalation Q6H PRN shortness 11/16/23 (2.5 mg base)/3 mL nebulization of breath or wheezing #180 mL soln melatonin 5 mg tablet 5 mg PO BEDTIME PRN sleep #30 tabs 01/24/24 cholecalciferol (vitamin D3) 25 25 mcg PO DAILY #90 caps 04/01/24 mcg (1,000 unit) capsule omeprazole 40 mg capsule,delayed 40 mg PO DAILY #30 caps 04/09/24 release albuterol sulfate 90 mcg/actuation 2 puff PO QID PRN shortness of 05/01/24 aerosol inhaler (Ventolin HFA) breath or wheezing 90 days #3 multiple units fluticasone propionate 50 2 spray intranasal DAILY PRN nasal 05/01/24 mcg/actuation nasal congestion #16 grams spray,suspension (Flonase Allergy Relief) zolpidem 10 mg tablet 10 mg PO BEDTIME PRN insomnia 30 05/01/24 days #30 tabs hydrochlorothiazide 25 mg tablet 25 mg PO DAILY #90 tabs 06/05/24 olmesartan 40 mg tablet 40 mg PO DAILY #90 tabs 06/05/24 amlodipine 5 mg tablet 5 mg PO DAILY #90 tabs 06/21/24 blood sugar diagnostic (FreeStyle #100 strips 07/01/24 Lite Strips) hydralazine 50 mg tablet 50 mg PO TID 90 days #270 tabs 07/01/24 tirzepatide 5 mg/0.5 mL 5 mg (0.5 mL) subcut QWEEK #2 mL 07/12/24 subcutaneous pen injector (Michelle) clotrimazole 1 % topical cream 1 appl topical BID 4 weeks #45 07/19/24 grams azithromycin 250 mg tablet 250 mg PO 3XW 28 days #12 tabs 07/29/24 budesonide 0.5 mg/2 mL suspension 0.5 mg (2 mL) inhalation BID 30 07/29/24 for nebulization days #120 mL montelukast 10 mg tablet 10 mg PO QPM #90 tabs 07/29/24 famotidine 40 mg tablet (Pepcid) 40 mg PO BEDTIME #30 tabs 07/30/24 prednisone 10 mg tablet 10 mg PO DIRECTED 8 days #20 07/30/24 tabs Allergies Allergy/AdvReac Type Severity Reaction Status Date / Time iodine [Iodine] Allergy Severe Anaphylaxis Verified 08/03/24 19:51 lisinopril Allergy Severe Rash Verified 08/03/24 19:51 metformin Allergy Severe diarrhea Verified 08/03/24 19:51 shellfish derived Allergy Severe Anaphylaxis Verified 08/03/24 19:51 meperidine [From Demerol] Allergy Mild RASH Verified 08/03/24 19:51 oxycodone [From Percocet] AdvReac Mild MOUTH Verified 08/03/24 19:51 DRYNESS,RASH Mercury Detox Allergy Severe Throat Uncoded 08/03/24 19:51 closing (charcoal) Review of Systems Review of Systems: Constitutional : No Weight loss, No Fever, No Chills, No Night Sweats, No Fatigue, No Malaise ENT/Mouth : No Hearing loss, No Ear Pain, No Nasal Congestion, No Sinus Pain, No Hoarseness, No sore throat, No Rhinorrhea, No Swallowing Difficulty Eyes: No Eye Pain, No Swelling, No Redness, No Foreign Body, No Discharge, No Vision Changes Cardiovascular : Complaining of constant chest pain for a week, intermittent chest pain for several months, No SOB, No Dyspnea on Exertion, No Orthopnea, No Edema, No Palpitations Respiratory : No Cough, No Sputum, No Wheezing, No Smoke Exposure, No Dyspnea Gastrointestinal : No Nausea, No Vomiting, No Diarrhea, No Constipation, No abdominal Pain, No Hematochezia, No Melena Genitourinary : no irregular bleeding, No Dysuria, No Urinary Frequency, No Hematuria, No Urinary Incontinence, No Urgency, No Flank Pain, No Urinary Flow Changes, No Hesitancy Musculoskeletal : No joint pain, No Myalgias, No Joint Swelling Skin : No Skin Lesions, No rash Neuro : No Weakness, No Numbness, No Paresthesias, No Loss of Consciousness, No Dizziness, No Headache Psych : No Anxiety/Panic, No Depression, No SI/HI/AH/VH, No Social Issues, Heme/Lymph: No Bruising, No Bleeding,No Lymphadenopathy Endocrine : No Polyuria, No Polydipsia, No Temperature Intolerance PMFSH Past Medical History Medical History Dyspnea Standard chest x-ray abnormal Diabetes mellitus RBBB (right bundle branch block) Laryngospasm Chronic bronchitis Supplemental oxygen dependent Onychomycosis Hx of fracture of fibula GERD without esophagitis Asthma-COPD overlap syndrome Diastasis recti JOSÉ (obstructive sleep apnea) Bursitis Low back pain Claustrophobia Hemoptysis Anxiety Insomnia Migraine Pure hypercholesterolemia Benign essential hypertension Type 2 diabetes mellitus with hyperglycemia, without long-term current use of insulin Stasis edema of both lower extremities Lumbar degenerative disc disease Obesity (BMI 30-39.9) Chronic rhinitis Hiatal hernia Erectile dysfunction Surgical History History of bronchoscopy History of endoscopy Hx of colonoscopy Hx of cardiac catheterization History of nasal surgery History of carpal tunnel surgery Family History Family History Father No problems noted. Mother Chronic kidney disease (CKD) Heart attack Other Mental health problem Social History Social History Household Members: Spouse, Family and Children Household Members Other:: adult children Housing: House Are you a primary field care coordinator to a significant other at home: No Do you presently have visiting nurse or other home services: Yes ([employer] WORKER) Alcohol intake: never Patient Tobacco Use Status: Never used Tobacco e-Cigarette/Vaping Use: Never Used Second Hand Smoke Exposure: Yes (employees smoked atwork) Use of substances other than those prescribed or required for medical reasons: No Advance Directives: No Advance Directives Information Provided: No service: No Current occupational status: disabled Cognitive needs: No Hearing needs: No Vision needs: No Physical Exam Vital Signs: Vital Signs: Last Vital Signs Temp 98.2 F 08/03/24 19:48 Pulse 84 08/03/24 22:12 Resp 16 08/03/24 22:12 BP 142/81 H 08/03/24 22:12 Pulse Ox 98 08/03/24 22:12 O2 Del Method Room Air 08/03/24 22:12 BMI result Body Mass Index 33.7 Const: Other: Appearance: Alert. Oriented X3. No acute distress. Eyes: Pupils equal, round and reactive to light. ENT: Pharynx normal. Neck: Normal inspection. Neck supple. No lymph nodes noted. No crepitus CVS: Normal heart rate and rhythm. Pulses normal. Normal S1 and S2, reproducible chest pain to palpation in the sternal area, no chest pain to palpation on the right Respiratory: No respiratory distress. Breath sounds normal. No Wheezing. No rales Abdomen: Soft and nontender. No rigidity. No distention. Skin: Skin warm and dry. Normal skin color. Normal skin turgor. Extremities: No lower extremity edema. No Lacerations. No Rash Neuro: Oriented X 3. No motor deficit. No sensory deficit. Moving all extremities. No slurred speech. CN 2 through 12 grossly intact Psych: calm, cooperative, normal affect Course Course Course Narrative: Felicia Garcia SALES FLOOR ASSOCIATE 08/03 1945 This is a rapid medical exam. deferred additional HPI, ROS, PE to primary provider. 59yo male with PMH of COPD,DM, HTN, HLD here with complaints of chest pain x 1 week. Will obtain labs, EKG, CXR. VSS Medical Decision Making Medical Decision Making [facility] Narrative: my interpretation of EKG: Sinus rhythm, heart rate 85, first-degree AV block, T-wave inversions V1 through V3 which is old for the patient, no new EKG findings. QTC 454 my interpretation of labs: Normal hematology and chemistry, normal troponin chest x-ray: No acute abnormality patient has chronic pain. At this time, no new symptoms. . Patient states that at this exact time, there is no chest pain. Patient states that if he is laying still he does not feel any pain but if he moves a certain way it hurts. Especially if he puts pressure over the sternal area. Patient has a stress test, scheduled in 5 days. chest pain is unlikely to be secondary to cardiac etiology, most likely musculoskeletal No consolidation or effusion. No pneumothorax. Imaged mediastinum and imaged osseous structures appear unchanged with mild lower thoracic vertebral height losses Differential Diagnosis Differential Diagnoses: The differential diagnosis associated with the presentation includes ( musculoskeletal chest pain, ACS) Admission/Observation Consideration of admission/observation: Escalation of care including admission/observation considered ( given patient's past medical history, onset of symptoms, observation was considered.) Lab Data [facility] Lab Attestation statement: I reviewed the patient's lab results. 08/03/24 19:58 08/03/24 19:58 Labs: Lab Results 08/03/24 Range/Units 19:58 WBC 7.7 (4.8-10.8) X10*3/uL RBC 5.39 (4.60-5.80) X10*6/uL Hgb 16.0 (14.0-18.0) g/dl Hct 47.5 (42.0-52.0) % MCV 88.1 (80.0-98.0) fL MCH 29.7 (27.0-33.0) pg MCHC 33.7 (31.0-36.0) g/dl RDW 12.3 (11.0-16.0) % Plt Count 293 (160-400) X10*3/uL MPV 10.2 (9.4-12.4) fL Immature Gran % (Auto) 0.6 H (0.0-0.4) % Neut % (Auto) 69.6 (45-73) % Lymph % (Auto) 18.4 L (20-40) % Garrard % (Auto) 8.2 (2-11) % Eos % (Auto) 2.6 (0-4) % Baso % (Auto) 0.6 (0-2) % Lymph # (Auto) 1.4 (1.2-4.9) X10*3/uL Garrard # (Auto) 0.6 (0.1-1.2) X10*3/uL Eos # (Auto) 0.2 (0.0-0.4) X10*3/uL Baso # (Auto) 0.1 (0.0-0.2) X10*3/uL Abs Immat Gran (auto) 0.05 H (0.00-0.03) X10*3/uL Absolute Neuts (auto) 5.4 (2.0-8.3) x10*3/uL Absolute Nucleated RBC 0.000 (0.0-0.012) X10*3/uL Nucleated RBC % (auto) 0.0 (0.0-0.2) /100WBC Sodium 138 (135-145) mmol/L Potassium 4.0 (3.3-5.1) mmol/L Chloride 104 (96-108) mmol/L Carbon Dioxide 26 (22-29) mmol/L Anion Gap 12 (12-20) BUN 16 (9-16) mg/dL Creatinine 0.98 (0.5-1.4) mg/dL Estim Creat Clear Calc 92.0 Estimated GFR > 60 Random Glucose 143 H (60-115) mg/dL Calcium 9.2 (8.4-10.2) mg/dL Total Bilirubin 0.6 (0.0-1.0) mg/dL Direct Bilirubin 0.2 (0.0-0.5) mg/dL AST 23 (5-37) U/L ALT 26 (0-40) U/L Alkaline Phosphatase 65 (39-117) U/L Troponin I High Sens 3.0 (<3.5-35.0) ng/L Total Protein 7.1 (6.5-8.0) g/dL Albumin 4.3 (3.5-5.0) g/dL Independent Interpretation I performed an independent interpretation of an: EKG and Plain X-Ray Radiology Impression Discussion of test interpretation with radiology: I have reviewed the radiologist's reading. Critical Care Time Critical Care Time Critical Care Time: Yes Total Critical Care Time: 35 Attestation: I have personally provided critical care time. Time includes review of lab data, radiology results, discussion with consultants, and monitoring for potential decompensation. Intervention performed as documented. Discharge Plan Discharge Clinical Impression: Atypical chest pain Patient Disposition: Home, Self-Care Instructions: Chest Pain (ED) Additional Instructions: Please follow-up with your primary care physician tomorrow. If you have any worsening or new symptoms, please return to the emergency room or call 911 Prescriptions: No Action latanoprost 0.005 % drops 1 drp ophthalmic (eye) DAILY Qty: 7.5 3RF Rx Instructions: as directed epinephrine [EpiPen 2-Dread] 0.3 mg/0.3 mL auto-injector 0.3 mg IM Q4H PRN (Reason: anaphylaxis) Qty: 2 0RF albuterol sulfate 2.5 mg /3 mL (0.083 %) solution for nebulization 2.5 mg continuous nebulization QID PRN (Reason: shortness of breath or wheezing) 30 Days Qty: 480 5RF tamsulosin 0.4 mg capsule 0.4 mg PO DAILY 90 Days Qty: 90 1RF ipratropium-albuterol 0.5 mg-3 mg(2.5 mg base)/3 mL solution for nebulization 3 ml inhalation Q6H PRN (Reason: shortness of breath or wheezing) Qty: 180 11RF Trelegy Ellipta 200-62.5-25 mcg blister with device 1 inh inhalation DAILY 30 Days Qty: 60 12RF omeprazole 40 mg capsule,delayed release(DR/EC) 40 mg PO DAILY Qty: 30 6RF hydrochlorothiazide 25 mg tablet 25 mg PO DAILY Qty: 90 0RF olmesartan 40 mg tablet 40 mg PO DAILY Qty: 90 0RF hydralazine 50 mg tablet 50 mg PO TID 90 Days Qty: 270 0RF (DME) FreeStyle Lite Strips Strip See Rx Instructions .ROUTE .COMPLEX Qty: 100 5RF Dose Instruction: USE DIRECTED TO TEST 5 TIMES DAILY. Rx Instructions: USE DIRECTED TO TEST 5 TIMES DAILY. Mounjaro 5 mg/0.5 mL pen injector 5 mg subcut QWEEK Qty: 2 5RF clotrimazole 1 % cream 1 appl topical BID 28 Days Qty: 45 2RF budesonide 0.5 mg/2 mL suspension for nebulization 0.5 mg inhalation BID 30 Days Qty: 120 0RF azithromycin 250 mg tablet 250 mg PO 3XW 28 Days Qty: 12 0RF Rx Instructions: Take 1 tablet on Monday/Monday/Monday montelukast 10 mg tablet 10 mg PO QPM Qty: 90 0RF aspirin 81 mg tablet,delayed release (DR/EC) 81 mg PO DAILY lorazepam 0.5 mg tablet See Rx Instructions .ROUTE .COMPLEX PRN (Reason: anxiety) 30 Days Qty: 60 0RF Rx Instructions: 1 to 2 tablets orally twice a day as needed; PRN; famotidine [Pepcid] 40 mg tablet 40 mg PO BEDTIME Qty: 30 1RF prednisone 10 mg tablet 10 mg PO DIRECTED 8 Days Qty: 20 0RF Rx Instructions: TAke 4 tabs for 2 days, then 3 tabs for 2 days, then 2 tabs for 2 days, then 1 tab for 2 days melatonin 5 mg tablet 5 mg PO BEDTIME PRN (Reason: sleep) Qty: 30 11RF (DME) FreeStyle Lola 3 Plus Sensor Device See Rx Instructions .ROUTE .MEDSUPPLY Qty: 1 Rx Instructions: As directed cholecalciferol (vitamin D3) 25 mcg (1,000 unit) capsule 25 mcg PO DAILY Qty: 90 2RF albuterol sulfate [Ventolin HFA] 90 mcg/actuation HFA aerosol inhaler 2 puff PO QID PRN (Reason: shortness of breath or wheezing) 90 Days Qty: 3 3RF zolpidem 10 mg tablet 10 mg PO BEDTIME PRN (Reason: insomnia) 30 Days Qty: 30 3RF fluticasone propionate [Flonase Allergy Relief] 50 mcg/actuation spray,suspension 2 spray intranasal DAILY PRN (Reason: nasal congestion) Qty: 16 5RF Rx Instructions: administer into each nostril amlodipine 5 mg tablet 5 mg PO DAILY Qty: 90 3RF Rx Instructions: BP medication Print Language: Welsh
[2024-08-03 19:48] VITALS: BP 149/90; PULSE 89; RESP 18; TEMP 36.8; O2SAT 98; BMI 33.7
[2024-08-03 20:06] LABS: MANUAL DIFF FLAG NO
[2024-08-03 20:22] LABS: Basophils Absolute Auto 0.1 X10*3/uL (0.0-0.2); Basophils Percent Auto 0.6 % (0-2); Eosinophils Absolute Auto 0.2 X10*3/uL (0.0-0.4); Eosinophils Percent Auto 2.6 % (0-4); Hematocrit 47.5 % (42.0-52.0); Imm Gran Abs Auto 0.05 X10*3/uL (0.00-0.03); Imm Gran Pct Auto 0.6 % (0.0-0.4); Lymphocytes Absolute Auto 1.4 X10*3/uL (1.2-4.9); Lymphocytes Percent Auto 18.4 % (20-40); Mean Corpuscular HGB Conc 33.7 g/dl (31.0-36.0); Mean Corpuscular Hemoglobin 29.7 pg (27.0-33.0); Mean Corpuscular Volume 88.1 fL (80.0-98.0); Mean Platelet Volume 10.2 fL (9.4-12.4); Monocytes Absolute Auto 0.6 X10*3/uL (0.1-1.2); Monocytes Percent Auto 8.2 % (2-11); Neutrophils Absolute Auto 5.4 x10*3/uL (2.0-8.3); Neutrophils Percent Auto 69.6 % (45-73); Platelet Count 293 X10*3/uL (160-400); Red Blood Count 5.39 X10*6/uL (4.60-5.80); Red Cell Distribution Width 12.3 % (11.0-16.0); White Blood Count 7.7 X10*3/uL (4.8-10.8)
[2024-08-03 20:23] LABS: Alanine Aminotransferase 26 U/L (0-40); Albumin Level 4.3 g/dL (3.5-5.0); Alkaline Phosphatase 65 U/L (39-117); Anion Gap 12 (12-20); Aspartate Amino Transferase 23 U/L (5-37); Bilirubin Direct 0.2 mg/dL (0.0-0.5); Bilirubin Total 0.6 mg/dL (0.0-1.0); Blood Urea Nitrogen 16 mg/dL (9-16); Calcium 9.2 mg/dL (8.4-10.2); Carbon Dioxide 26 mmol/L (22-29); Chloride 104 mmol/L (96-108); Estimated Glomerular Filt Rate > 60; Glucose Random 143 mg/dL (60-115); Sodium 138 mmol/L (135-145); Total Protein 7.1 g/dL (6.5-8.0)
[2024-08-03 20:33] VITALS: BP 149/92; PULSE 88; RESP 18; O2SAT 97
[2024-08-03 20:35] VITALS: PULSE 90
[2024-08-03 22:12] VITALS: BP 142/81; PULSE 84; RESP 16; O2SAT 98
[2024-08-03 23:22] VITALS: BP 145/77; PULSE 89; RESP 16; TEMP 36.9; O2SAT 97
== END 2024-08-03 23:23 | disposition home or self-care (01) ==
PROVIDERS: Nurse Practitioner Family; Emergency Provider Emergency Medicine; PCP Internal Medicine
DX: R07.9 Chest pain, unspecified (principal); E11.9 Type 2 diabetes mellitus without complications; I45.10 Unspecified right bundle-branch block; K21.9 Gastro-esophageal reflux disease without esophagitis; I10 Essential (primary) hypertension
CPT/HCPCS: 36415; 71046; 80048; 80076; 84484; 85025; 93005; 99283; 99285

== ENCOUNTER → 2024-08-03 19:38 | Outpatient (BNV) | payer OTHER, SELFPAY | PROVIDERS: Emergency Provider Emergency Medicine; PCP Internal Medicine; Visit Provider Internal Medicine Cardiovascular Disease | DX: I44.0 Atrioventricular block, first degree (principal); I45.10 Unspecified right bundle-branch block | CPT/HCPCS: 93010 ==

== ENCOUNTER → 2024-08-03 19:46 | Outpatient (BNV) | payer OTHER, SELFPAY | PROVIDERS: Emergency Provider Emergency Medicine; PCP Internal Medicine; Visit Provider Radiology Neuroradiology | DX: R07.9 Chest pain, unspecified (principal) | CPT/HCPCS: 71046 ==

== ENCOUNTER 2024-08-05 09:10 | Outpatient (AMB) | payer OTHER, SELFPAY ==
--- NOTE | 2024-08-05 09:13 | A.OFFVIS_ITS ---
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 Most recent HbA1c: 6.2%, 08/05/2024 Random Glucose- 113 mg/dL, Today Oracle Manager Required: No Accompanied by: Self / Same As Patient Allergies iodine [Iodine] Allergy (Severe, Verified 08/05/24 09:19) Anaphylaxis lisinopril Allergy (Severe, Verified 08/05/24 09:19) Rash metformin Allergy (Severe, Verified 08/05/24 09:19) diarrhea shellfish derived Allergy (Severe, Verified 08/05/24 09:19) Anaphylaxis meperidine [From Demerol] Allergy (Mild, Verified 08/05/24 09:19) RASH oxycodone [From Percocet] Adverse Reaction (Mild, Verified 08/05/24 09:19) MOUTH DRYNESS,RASH Mercury Detox Allergy (Severe, Uncoded 08/05/24 09:19) Throat closing (charcoal) Medication List - Last Reconciled 08/05/24 by Rae Oconnor PA-C albuterol sulfate 2.5 mg (3 mL) continuous nebulization QID PRN 30 days albuterol sulfate 90 mcg/actuation (Ventolin HFA) 2 puffs PO QID PRN 90 days amlodipine 5 mg PO DAILY aspirin 81 mg PO DAILY azithromycin 250 mg PO 3XW 28 days blood sugar diagnostic (FreeStyle Lite Strips) USE DIRECTED TO TEST 5 TIMES DAILY. blood-glucose sensor (FreeStyle Lola 3 Plus Sensor device) As directed budesonide 0.5 mg (2 mL) inhalation BID 30 days cholecalciferol (vitamin D3) 25 mcg PO DAILY clotrimazole 1% 1 appl topical BID 4 weeks epinephrine (EpiPen 2-Draed) 0.3 mg (0.3 mL) IM Q4H PRN famotidine (Pepcid) 40 mg PO BEDTIME fluticasone propionate 50 mcg/actuation (Flonase Allergy Relief) 2 sprays intranasal DAILY PRN [id number] 200-62.5-25 mcg (Trelegy Ellipta) 1 inh inhalation DAILY 30 days hydralazine 50 mg PO TID 90 days hydrochlorothiazide 25 mg PO DAILY ipratropium-albuterol 0.5 mg-3 mg(2.5 mg base)/3 mL 3 mL inhalation Q6H PRN latanoprost 0.005% 1 drp ophthalmic (eye) DAILY lorazepam 1 to 2 tablets orally twice a day as needed; PRN; 30 days melatonin 5 mg PO BEDTIME PRN montelukast 10 mg PO QPM olmesartan 40 mg PO DAILY omeprazole 40 mg PO DAILY prednisone 10 mg PO DIRECTED 8 days tamsulosin 0.4 mg PO DAILY 90 days zolpidem 10 mg PO BEDTIME PRN 30 days HPI HPI T2DM: Details: Patient is a 59 year-old male with a significant past medical history of controlled 2 diabetes, hyperlipidemia, hypertension, COPD with asthma overlap presenting today for a diabetic follow-up. Endo: His last A1c was 5.8 and today his A1c is 6.2. He is on mounjaro 5 mg weekly. He wonders if it is causing his GERD sx. He would like to try to discontinue it. -He did get some nausea with the higher doses of Mounjaro. He had nausea with Trulicity at higher doses. In the past was on glipizide but discontinued as glucose was controlled with just the Mounjaro. 94% in range 6% hyperglycemia, 0% lows. -denies any regular low blood sugars. Would correct this with juice. -he does have ongoing peripheral neuropathy and does monitor his feet daily. He tried gabapentin but this was ineffective. He has been putting been K on his feet at night inches is not sure if that it is helping. The and neuropathy feels like a burning sensation and at times comes from his back. He does have an upcoming appointment scheduled with his PCP. He follows with Podiatry. -follows routinely with ophthalmology CV: Blood pressure today in the office is 138/90. He is on amlodipine 10 mg, hydralazine 50 mg t.i.d., hydrochlorothiazide 25 mg and olmesartan 40 mg daily. He stress test scheduled in 3 days. [facility] Medical History (Updated 08/05/24 @ 09:40 by Rae Oconnor PA-C) Dyspnea Standard chest x-ray abnormal Diabetes mellitus RBBB (right bundle branch block) Laryngospasm Chronic bronchitis Supplemental oxygen dependent Onychomycosis Hx of fracture of fibula GERD without esophagitis Asthma-COPD overlap syndrome Diastasis recti JOSÉ (obstructive sleep apnea) Bursitis Low back pain Claustrophobia Hemoptysis Anxiety Insomnia Migraine Pure hypercholesterolemia Benign essential hypertension Type 2 diabetes mellitus with hyperglycemia, without long-term current use of insulin Stasis edema of both lower extremities Lumbar degenerative disc disease Obesity (BMI 30-39.9) Chronic rhinitis Hiatal hernia Erectile dysfunction Surgical History History of bronchoscopy History of endoscopy Hx of colonoscopy Hx of cardiac catheterization History of nasal surgery History of carpal tunnel surgery Family History Father No problems noted. 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) Alcohol intake: never Patient Tobacco Use Status: Never used Tobacco e-Cigarette/Vaping Use: Never Used Second Hand Smoke Exposure: Yes (employees smoked atwork) service: No Current occupational status: disabled Cognitive needs: No Hearing needs: No Vision needs: No Physical Exam Vital Signs: Last Vital Signs Pulse 89 08/05/24 09:14 BP 138/90 H 08/05/24 09:14 Pulse Ox 98 08/05/24 09:14 Oxygen Delivery Method Room Air 08/05/24 09:14 BMI result Body Mass Index 33.5 Const Orientation/consciousness: patient oriented x3 HEENT Ears: hearing grossly normal bilaterally Neck Neck: Yes no lymphadenopathy Thyroid: Thyroid normal Carotids: no bruits Lymphatic: no lymphadenopathy noted Resp Auscultation: clear to auscultation bilaterally Cardio Rate: regular rate Rhythm: regular rhythm Heart sounds: S1 normal heart sound present and S2 normal heart sound present Peripheral pulses: dorsalis pedis present Skin General skin exam: no rashes or lesions noted Neuro General: patient oriented x3, gait normal and no focal motor deficits Extrem Other: Monofilament sensation intact bilaterally. Vibratory sensation intact bilaterally. Skin intact. General: Yes normal to inspection Results AMB Hemoglobin A1c AMB Hemoglobin A1c 6.2 % Last Edit by JAKI Thomas on 08/05/24 09:32 Results Reviewed Results Reviewed: Laboratory Last Values Glucose (Clinic) 113 mg/dL (60-115) 08/05/24 09:23 Hgb A1c (Clinic) 6.2 % (4.0-6.0) H 08/05/24 09:30 Laboratory Tests 06/06/23 05/01/24 08/03/24 12:44 13:58 19:58 Sodium 138 Potassium 4.0 Chloride 104 Carbon Dioxide 26 Anion Gap 12 BUN 16 Creatinine 0.98 Estim Creat Clear Calc 92.0 Estimated GFR > 60 Random Glucose 143 H Hgb A1c (Clinic) 5.8 AST 23 ALT 26 Alkaline Phosphatase 65 Urine Creatinine 146.62 Urine Microalbumin 5.0 Microalb/Creat Ratio 3.4 Assessment & Plan Assessment & Plan (1) Type 2 diabetes, controlled, with peripheral neuropathy: Code(s): E11.42 - Type 2 diabetes mellitus with diabetic polyneuropathy Category: Medical Plan: stop mounjaro start jardiance. discussed risks recheck bmp in 2-4 weeks We will try Voltaren gel for the feet. short term follow up in 6 weeks to be rechecked (2) Benign essential hypertension: Code(s): I10 - Essential (primary) hypertension Category: Medical Plan: elevated today He believes it is because he drank a lot of coffee before coming here and he did not sleep last night. Orders: Orders Microalbumin, Random (w Creat) Today E11.42 - Type 2 diabetes mellitus with diabetic polyneuropathy AMB Hemoglobin A1c Today E11.42 - Type 2 diabetes mellitus with diabetic polyneuropathy Basic Metabolic Panel Today E11.42 - Type 2 diabetes mellitus with diabetic polyneuropathy Medications: New empagliflozin (Jardiance) 10 mg PO QAM 90 tabs 0RF diclofenac sodium 1% (Voltaren Arthritis Pain) apply to foot includes sole/toes/top of foot 4 grams topical QID PRN 100 grams 3RF pain Discontinued tirzepatide (Mounjaro) Discontinued Reason: Duplicate 5 mg (0.5 mL) subcut QWEEK 2 mL 5RF Coding Level of Care Code Est Pt Level 4 (29023) Complex EM visit Add On G2211 Diagnoses Type 2 diabetes, controlled, with peripheral neuropathy E11.42 Benign essential hypertension I10
[2024-08-05 09:14] VITALS: BP 138/90; PULSE 89; O2SAT 98; BMI 33.5
--- OUTSIDE RECORDS SUMMARY | 2024-08-05 09:23 | XMS_ITS | Data Portability ---
Author Organization [place] in [employer] Address [address] [place] [address] Care Team Providers Care Molder Automobile Carpets Name Role Phone [facility] Referring [...] Not Available Not Available Not Available FreeStyle Dana Lite kit active Not Available Not Available [...] Esa Ohara MD Main - instED [address] [place] [address] 11/15/2021 12:48:47 11/25/2021 13:00:36 Dyspnea [id number] R06.00 Health Concerns Section Related Observation LastModified by Organization Detai ls LastModified Time None Recorded Concern Status LastModified by Organization Details LastModified Time None Recorded Advance Directives Directive None Recorded Payers Insurance Date Sequence Insurance Name Policy Number Policy Reyna Covered Member ID Reyna Member ID Guarantor Name 11/15/2021 1 [facility] - DOS PRIOR TO 2022 - DUAL ELIGIBLE (MEDICARE REPLACEMENT/ADV ANTAGE - HMO) Keaton Cullen [id number] Keaton Cullen Notes Date Note Type Note [...] ..................... ..................... ..................... ..................... ..................... ..................... ............... Superintendent Tests Note: Pt states he is on day 3 of chest tightness. Pt admits that laying flat and exerting himself causes SOB. Pt states he uses his nebulizer but it doesn? t help much. No noted edema. 12 lead showed RBBB. Pt doesn? t think he had that before. [facility] advised that Pt needs to follow up with PCP for echo/chest X-ray but if the tightness or sob got worse he needed to go to ED. Red flags discussed ..................... ..................... ..................... ..................... ..................... ..................... ............... Disposition: Fulfilled Esa Ohara MD [address] [facility],[address], [place], [address], [place] - KINGA MCCARTNEY 11/15/2021 19:11:47
--- OUTSIDE RECORDS SUMMARY | 2024-08-05 09:23 | XMS_ITS | Data Portability ---
Author Organization [facility], [facility] Address [address] [place] [address] Care Team Providers Care Auto Radiator Specialist Name Role Phone DENNIS HOLDEN Exchange Engineer Unavailable Assessment No assessment recorded. Plan of Treatment Reminders Order Date Submit Date Provider Last Modified By Organization Details Last Modified Time Details Appointments None recorded. Lab None recorded. Referral None recorded. Procedures None recorded. Surgeries None recorded. Imaging None recorded. Medication Orders TobraDex 0.3 %-0.1 % eye drops,susp ension 2017 018 INTERFACE [facility] #[id number], [address], [place], [id number], 8 10:09:33 Xiidra 5 % eye drops in a dropperett e 2016 017 INTERFACE [employer] #[id number], [address], [place], [id number], 7 10:10:00 Patient TargetsNo targets recorded. Patient Instructions Encounter Date Encounter Id Patient Instructions Last Modified By Organization Details Last Modified Time 07/06/2015 [id number] RTC 6 months for HVF 24-2SS with IOP check or per Dr. Collins. jmandile Not available 07/13/2015 13:43:44 07/18/2016 [id number] RX given for glasses Warm compresses, artificial tears, hydration and Misenheimer 3 fatty acids (fish oil, flax seed, etc) for dry eye symptoms. Start Xiidra 2x/day. Return 6 weeks or sooner as needed. jmerlin Not available 07/18/2016 10:29:44 12/15/2017 [id number] Tobradex drops four times a day for seven days and it should conitnue to improve. Return with any increase in symptoms including pain, discharge, light sensitivity, or change in vision. jmerlin Not available 12/15/2017 10:12:03 Reason for Referral None Reported. Procedures Surgical History Date Name Laterality Status Provider Name and Address Organization Details Recorded Time 07/19/19 17 Refraction completed [facility] 07/18/2016 09:44:19 07/06/19 16 Fundus Photography completed Dennis Holden, [address], [address], [facility] 07/09/2015 09:03:40 07/06/19 16 Refraction completed [facility] 07/06/2015 15:33:28 Imaging Results None recorded. Procedure Notes None recorded. Medical Equipment None Reported. Allergies Allergen ID Allergen Name Allergen Category Reaction Reaction Severity Criticality Documentation Date Start Date Code Code System Note Provider Name and Address Organization Details Recorded Time 802745 iodine medicatio n Not available Not available Not available 07/06/2015 [address] [facility] 6 15:18:45 820800 Demerol medicatio n Not available Not available Not available 07/06/2015 [address] [facility] 6 15:18:45 943666 acetamino phen / oxycodone medicatio n Not available Not available Not available 07/06/2015 [address] 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 refer to ophthalmol ogy. scheduled to see Dr. Collins for OCT, exam and VF on August. Dry eyes 767300345 H04.1 29 rec AT d Retinal tear 24073831 H3 3.309 well sealed tear with laser temp OD. reviewed syp of rd, rtc if occur. Presbyopia 35071493 H52. 4 [id number] Cody Arshad, OD [facility], [address] [address] 07/18/2016 08:57:54 07/18/2016 10:20:43 Myopia 65612591 H52.13 Presbyopia 31349183 H52. 4 Dry eyes 057688518 H04.1 29 Not relieved with constant use of ATs, warm compresses Retinal tear 81729925 H3 3.301 well sealed [id number] Cody Arshad, OD [facility], [address] [address] 12/15/2017 09:17:25 12/15/2017 10:11:50 Acute atopic conjunctivitis 05867849 H10.11 Secondary to probable foreign body (no FB seen) Health Concerns Section Related Observation LastModified by Organization Detai ls LastModified Time None Recorded Concern Status LastModified by Organization Details LastModified Time None Recorded Advance Directives Directive None Recorded Payers Encounter Date Sequence Insurance Name Policy Number Policy Reyna Covered Member ID Reyna Member ID Guarantor Name 07/06/2015 1 [place] [employer] Keaton Cullen [id number] Keaton Cullen 07/06/2015 2 [place] [facility] Keaton Cullen [id number] Keaton Cullen 07/18/2016 1 [place]: [facility] Keaton Cullen [id number] Keaton Cullen 07/18/2016 2 [place] [facility] Keaton Cullen [id number] Keaton Cullen 12/15/2017 1 [place] [facility] Keaton Cullen [id number] Keaton Cullen 12/15/2017 2 [place] [facility] Keaton Cullen [id number] Keaton Cullen Notes Date Note Type Note Provider Name and Address Organization Details Recorded Time 07/18/2016 text/html Diabetic Eye ExamReported bypatient.Quality: type II diabetes Context:no history of retinopathy Associated Symptoms:normal visionDry EyeReported bypatient.Location :bilateral Severity:no pain Duration:constant Onset/Timing:recur rent episode Context:taking drops as indicated Modifying Factors:nothing gives relief; OTC medication Associated Symptoms:irritatio n; eyes feel sticky all the time Cody Arshad OD [address] [place], [address], [facility] 07/18/2016 10:29:56 12/15/2017 text/html Ocular PainReported bypatient.Location :right; eye(s) Severity:severe;wo rsening Duration:2 days Onset/Timing:sudde n Context:prior eye surgery(Detached Retina) Modifying Factors:eye protection worn; eye(s) flushed immediately after chemical exposure; nothing relieves Associated Symptoms:normal vision; no diplopia;photophob ia;redness;tearing ;pain level 7/10;foreign body sensation Yesterday thinks a bug came out. No discharge, recent URI, crusting. Cody Arshad OD [address] [place], [address], [facility] 12/15/2017 10:12:58
--- OUTSIDE RECORDS SUMMARY | 2024-08-05 09:23 | XMS_ITS | Clinical Summary ---
Author Organization 175 [facility] Address [address] [place] [address] Phone Care Team Providers Care Premix Operator Concentrate Name Role Phone Oliverio Emerson MD Primary Care Provider [phone] Social History Tobacco Use Types Packs/Day Years [...] Subscriber Plan / Payer (Ef fective 2018-Present) Name:KEATON REDDY Relation to Subscriber:Self Name:Keaton Reddy Payer ID:[id number] Group ID:[id number] Type:Not on file Address: [address] [place] [address] Care Teams Premix Operator Concentrate Relationship Specialty Start Date End Date Oliverio Emerson MD [address] [place] [address] [address] [place], [place] PCP - General 02/21/22
[2024-08-05 09:27] LABS: Glucose, Whole Blood 113 mg/dL (60-115)
== END 2024-08-05 09:50 | disposition home or self-care (01) ==
LOC: HO.ENCR 09:11
PROVIDERS: PCP Internal Medicine; Visit Provider Physician Assistant
DX: E11.42 Type 2 diabetes mellitus with diabetic polyneuropathy (principal); I10 Essential (primary) hypertension

== ENCOUNTER → 2024-08-05 09:10 | Outpatient (BNVA) | payer OTHER, SELFPAY | PROVIDERS: PCP Internal Medicine; Visit Provider Physician Assistant | DX: E11.42 Type 2 diabetes mellitus with diabetic polyneuropathy (principal); I10 Essential (primary) hypertension; E78.5 Hyperlipidemia, unspecified; J44.9 Chronic obstructive pulmonary disease, unspecified | CPT/HCPCS: 82947; 83036; 99212 ==

== ENCOUNTER → 2024-08-08 11:10 | Outpatient (REF) | payer OTHER, SELFPAY ==
--- NOTE | 2024-08-08 11:12 | CA_ITS ---
Acquisition Time: 2024-08-08 11:40:21 Total Exercise Time: 00:07:55 Test Indications: CP,Abnormal ECG RBBB Medications: SEE H&P Protocol: ESPERANZA Max HR: 137 BPM 85% of Pred: 160 BPM Max BP: 180/100 mmHG Max Work Load: 9.9 METS Exercise stress test with exercise 7 mins 55 secs of Esperanza Protocol, achieving 85% MPHR, with reports of headache and severe SOB, no chest pain, with isolated PVCs, with normotensive response to exercise. EKG difficult during exercise due to artifacts and low voltage QRS. Without EKG changes in recovery meeting criteria for ischemia. In recovery, pt's breathing returned to baseline. Echo images obtained by tech at rest and post peak exercise. Definity contrast utilized. Test reviewed with Dr. Alonzo. Referred By: Zuri Dudley Electronically Signed By: Shyam Loyd
--- OUTSIDE RECORDS SUMMARY | 2024-08-08 11:47 | XMS_ITS | Data Portability ---
Author Organization [place] in [employer] Address [address] [place] [address] Care Team Providers Care Air/Ocean Export Clerk Name Role Phone [facility] Referring [...] Not Available Not Available Not Available FreeStyle [place] Lite kit active Not Available Not Available [...] Esa Ohara MD Main - instED [address] [place] [address] 11/15/2021 12:48:47 11/25/2021 13:00:36 Dyspnea [id number] R06.00 Health Concerns Section Related Observation LastModified by Organization Detai ls LastModified Time None Recorded Concern Status LastModified by Organization Details LastModified Time None Recorded Advance Directives Directive None Recorded Payers Insurance Date Sequence Insurance Name Policy Number Policy Reyna Covered Member ID Reyna Member ID Guarantor Name 11/15/2021 1 [facility] - DOS PRIOR TO 2022 - DUAL ELIGIBLE (MEDICARE REPLACEMENT/ADV ANTAGE - HMO) Keaton Cullen [id number] Keaton Cullen Notes Date Note Type Note [...] ..................... ..................... ..................... ..................... ..................... ..................... ............... Equine Manager Note: Pt states he is on day 3 of chest tightness. Pt admits that laying flat and exerting himself causes SOB. Pt states he uses his nebulizer but it doesn? t help much. No noted edema. 12 lead showed RBBB. Pt doesn? t think he had that before. [facility] advised that Pt needs to follow up with PCP for echo/chest X-ray but if the tightness or sob got worse he needed to go to ED. Red flags discussed ..................... ..................... ..................... ..................... ..................... ..................... ............... Disposition: Fulfilled Esa Ohara MD [address] [facility],[address], [place], [address], [place] - KINGA MCCARTNEY 11/15/2021 19:11:47
--- OUTSIDE RECORDS SUMMARY | 2024-08-08 11:47 | XMS_ITS | Clinical Summary ---
Author Organization 175 [facility] Address [address] [place] [address] Phone Care Team Providers Care Pole Maker Name Role Phone Oliverio Emerson MD Primary Care Provider [phone] Social History Tobacco Use Types Packs/Day Years Used Date Smoking Tobacco: Never Assessed Sex and Gender Information Value Date Recorded Sex Assigned at Not on file Legal Sex Male 9:08 PM EST Gender Identity Not on file Sexual Orientation Not on file Plan of Treatment Upcoming Encounters Date Type Department Care Team (Late st Contact Info) Description 09/03/2024 10:45 AM EDT Consult Orthopedic Surgery - [place] [address] [phone] Mike Velasquez DPM [address] [address] Health Maintenance Due Date Last Done Comments [...] Vaccine (1 - 2023-2 5 season) 2023 RSV Immunization [...] ID:ICO Type:Not on file Address: [address] [place] [address] Care Teams Pole Maker Relationship Specialty Start Date End Date Oliverio Emerson MD [address] [place] [address] [address] [place] Christiansen PCP - General 02/21/22
--- OUTSIDE RECORDS SUMMARY | 2024-08-08 11:47 | XMS_ITS | Data Portability ---
Author Organization [facility], [facility] Address [address] [place] [address] Care Team Providers Care Equine Dentist Name Role Phone DENNIS HOLDEN Tooling Engineering Tech Unavailable Assessment No assessment recorded. Plan of Treatment Reminders Order Date Submit Date Provider Last Modified By Organization Details Last Modified Time Details Appointments None recorded. Lab None recorded. Referral None recorded. Procedures None recorded. Surgeries None recorded. Imaging None recorded. Medication Orders TobraDex 0.3 %-0.1 % eye drops,susp ension 2017 018 INTERFACE [facility] #62549, [address], [place], [phone], 8 10:09:33 Xiidra 5 % eye drops in a dropperett e 2016 017 INTERFACE [employer] #96706, [address], [place], [phone], 7 10:10:00 Patient TargetsNo targets recorded. Patient Instructions Encounter Date Encounter Id Patient Instructions Last Modified By Organization Details Last Modified Time 07/06/2015 [id number] RTC 6 months for HVF 24-2SS with IOP check or per Dr. Collins. jmandile Not available 07/13/2015 13:43:44 07/18/2016 [id number] RX given for glasses Warm compresses, artificial tears, hydration and Waves 3 fatty acids (fish oil, flax seed, etc) for dry eye symptoms. Start Xiidra 2x/day. Return 6 weeks or sooner as needed. jmerlin Not available 07/18/2016 10:29:44 12/15/2017 [id number] Tobradex drops four times a day for seven days and it should conitnue to improve. Return with any increase in symptoms including pain, discharge, light sensitivity, or change in vision. jmerlin Not available 12/15/2017 10:12:03 Reason for Referral None Reported. Procedures Surgical History Date Name Laterality Status Provider Name and Address Organization Details Recorded Time 07/19/19 17 Refraction completed [facility] 07/18/2016 09:44:19 07/06/19 16 Fundus Photography completed Dennis Holden, [address], [address], [facility] 07/09/2015 09:03:40 07/06/19 16 Refraction completed [facility] 07/06/2015 15:33:28 Imaging Results None recorded. Procedure Notes None recorded. Medical Equipment None Reported. Allergies Allergen ID Allergen Name Allergen Category Reaction Reaction Severity Criticality Documentation Date Start Date Code Code System Note Provider Name and Address Organization Details Recorded Time 564616 iodine medicatio n Not available Not available Not available 07/06/2015 5933 RxNorm [facility] 6 15:18:45 887536 Demerol medicatio n Not available Not available Not available 07/06/2015 23461 1 RxNorm [facility] 6 15:18:45 633600 acetamino phen / oxycodone medicatio n Not available Not available Not available 07/06/2015 89584 3 RxNorm [facility] 6 15:18:45 496778 shellfish derived food,medi cation Not available Not available Not available 07/06/2015 60400 UNK [facility] 6 15:18:45 Medications Name Sig Start [...] SNOMED-CT Code Diagnosis ICD10 Code Diagnosis Note [id number] Dennis Mari Holden, OD [facility], [address] [address] 07/06/2015 14:58:29 07/06/2015 16:23:42 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 refer to ophthalmol ogy. scheduled to see Dr. Collins for OCT, exam and VF on August. Dry eyes 729142183 H04.1 29 rec AT d Retinal tear 08950894 H3 3.309 well sealed tear with laser temp OD. reviewed syp of rd, rtc if occur. Presbyopia 86423862 H52. 4 [id number] Cody Arshad, OD [facility], [address] [address] 07/18/2016 08:57:54 07/18/2016 10:20:43 Myopia 66617388 H52.13 Presbyopia 91517624 H52. 4 Dry eyes 419190055 H04.1 29 Not relieved with constant use of ATs, warm compresses Retinal tear 67399089 H3 3.301 well sealed [id number] Cody Arshad, OD [facility], [address] [address] 12/15/2017 09:17:25 12/15/2017 10:11:50 Acute atopic conjunctivitis 93309217 H10.11 Secondary to probable foreign body (no FB seen) Health Concerns Section Related Observation LastModified by Organization Detai ls LastModified Time None Recorded Concern Status LastModified by Organization Details LastModified Time None Recorded Advance Directives Directive None Recorded Payers Encounter Date Sequence Insurance Name Policy Number Policy Reyna Covered Member ID Reyna Member ID Guarantor Name 07/06/2015 1 [place] [employer] Keaton Cullen [id number] Keaton Cullen 07/06/2015 2 [place] [facility] Keaton Cullen [id number] Keaton Cullen 07/18/2016 1 [place] [facility] Keaton Cullen [id number] Keaton Cullen 07/18/2016 2 [place] [facility] Keaton Cullen [id number] Keaton Cullen 12/15/2017 1 [place] [facility] Keaton Cullen [id number] Keaton Cullen 12/15/2017 2 [place] [facility] Keaton Cullen [id number] Keaton Cullen Notes Date Note Type Note Provider Name and Address Organization Details Recorded Time 07/18/2016 text/html Diabetic Eye ExamReported bypatient.Quality: type II diabetes Context:no history of retinopathy Associated Symptoms:normal visionDry EyeReported bypatient.Location :bilateral Severity:no pain Duration:constant Onset/Timing:recur rent episode Context:taking drops as indicated Modifying Factors:nothing gives relief; OTC medication Associated Symptoms:irritatio n; eyes feel sticky all the time Cody Arshad OD [address] [place], [address], [facility] 07/18/2016 10:29:56 12/15/2017 text/html Ocular PainReported bypatient.Location :right; eye(s) Severity:severe;wo rsening Duration:2 days Onset/Timing:sudde n Context:prior eye surgery(Detached Retina) Modifying Factors:eye protection worn; eye(s) flushed immediately after chemical exposure; nothing relieves Associated Symptoms:normal vision; no diplopia;photophob ia;redness;tearing ;pain level 7/10;foreign body sensation Yesterday thinks a bug came out. No discharge, recent URI, crusting. Cody Arshad OD [address] [place], [address], [facility] 12/15/2017 10:12:58
== END ==
LOC: HO.CARD 11:10
PROVIDERS: PCP Internal Medicine; Visit Provider Nurse Practitioner Family
DX: R07.89 Other chest pain (principal); E11.9 Type 2 diabetes mellitus without complications; Z79.4 Long term (current) use of insulin
CPT/HCPCS: 93350; Q9957

== ENCOUNTER → 2024-08-08 11:12 | Outpatient (BNV) | payer OTHER, SELFPAY | PROVIDERS: PCP Internal Medicine | DX: R06.02 Shortness of breath (principal); R94.31 Abnormal electrocardiogram [ECG] [EKG]; I49.3 Ventricular premature depolarization | CPT/HCPCS: 93016; 93018; 93350; 93352 ==

== ENCOUNTER 2024-08-19 09:31 | Outpatient (AMB) | payer OTHER, SELFPAY ==
--- NOTE | 2024-08-19 09:48 | MHC.OFFVIS ---
Vital Signs 08/19/24 09:49 Height 5 ft 8 in Weight 218 lb 4.122 oz BMI 33.2 BP 138/78 Blood Pressure Location Lt brachial Position Sitting Pulse 90 Pulse Source Pulse Oximeter Intake Visit Reasons: f/u after testing Allergies iodine [Iodine] Allergy (Severe, Verified 08/05/24 09:19) Anaphylaxis lisinopril Allergy (Severe, Verified 08/05/24 09:19) Rash metformin Allergy (Severe, Verified 08/05/24 09:19) diarrhea shellfish derived Allergy (Severe, Verified 08/05/24 09:19) Anaphylaxis meperidine [From Demerol] Allergy (Mild, Verified 08/05/24 09:19) RASH oxycodone [From Percocet] Adverse Reaction (Mild, Verified 08/05/24 09:19) MOUTH DRYNESS,RASH Mercury Detox Allergy (Severe, Uncoded 08/05/24 09:19) Throat closing (charcoal) Medication List - Last Reconciled 08/19/24 by SHANNON ChapmanC albuterol sulfate 2.5 mg (3 mL) continuous nebulization QID PRN 30 days albuterol sulfate 90 mcg/actuation (Ventolin HFA) 2 puffs PO QID PRN 90 days amlodipine 5 mg PO DAILY aspirin 81 mg PO DAILY azithromycin 250 mg PO 3XW 28 days blood sugar diagnostic (FreeStyle Lite Strips) USE DIRECTED TO TEST 5 TIMES DAILY. blood-glucose sensor (FreeStyle Lola 3 Plus Sensor device) As directed budesonide 0.5 mg (2 mL) inhalation BID 30 days cholecalciferol (vitamin D3) 25 mcg PO DAILY clotrimazole 1% 1 appl topical BID 4 weeks diclofenac sodium 1% (Voltaren Arthritis Pain) 4 grams topical QID PRN empagliflozin (Jardiance) 10 mg PO QAM epinephrine (EpiPen 2-Dread) 0.3 mg (0.3 mL) IM Q4H PRN famotidine (Pepcid) 40 mg PO BEDTIME fluticasone propionate 50 mcg/actuation (Flonase Allergy Relief) 2 sprays intranasal DAILY PRN edlhdejgwms-djhpgyeid-jzxidcgd 200-62.5-25 mcg (Trelegy Ellipta) 1 inh inhalation DAILY 30 days hydralazine 50 mg PO TID 90 days hydrochlorothiazide 25 mg PO DAILY ipratropium-albuterol 0.5 mg-3 mg(2.5 mg base)/3 mL 3 mL inhalation Q6H PRN latanoprost 0.005% 1 drp ophthalmic (eye) DAILY lorazepam 1 to 2 tablets orally twice a day as needed; PRN; 30 days melatonin 5 mg PO BEDTIME PRN metoprolol succinate ER 50 mg PO DAILY montelukast 10 mg PO QPM olmesartan 40 mg PO DAILY omeprazole 40 mg PO DAILY prednisone 10 mg PO DIRECTED 8 days tamsulosin 0.4 mg PO DAILY 90 days zolpidem 10 mg PO BEDTIME PRN 30 days HPI HPI f/u after testing: Details: Keaton is a 59 year old male with past medical history of hypertension, hyperlipidemia, diabetes, sleep apnea with O2 use, right bundle branch block, anxiety, asthma, chest discomfort who presents for follow-up. Today he reports he has a continual aching in his left chest that goes into his left arm. He also has some tingling into his left hand. These symptoms are mostly noted when he is at rest and during the night. With activity he will notice shortness of breath and some tightness in his chest. He does have asthma but does not believe this is asthma related. He has been breathing comfortably with no recent exacerbation. No PND, orthopnea or edema. No heart palpitations, lightheadedness, presyncope. He reports some upper abdominal pressure when eating and swallowing. He says he has had esophageal dilation in the past. He has been doing only light activities recently due to his concern for his heart. He is taking meds as directed. [facility] Medical History Dyspnea Standard chest x-ray abnormal Diabetes mellitus RBBB (right bundle branch block) Laryngospasm Chronic bronchitis Supplemental oxygen dependent Onychomycosis Hx of fracture of fibula GERD without esophagitis Asthma-COPD overlap syndrome Diastasis recti JOSÉ (obstructive sleep apnea) Bursitis Low back pain Claustrophobia Hemoptysis Anxiety Insomnia Migraine Pure hypercholesterolemia Benign essential hypertension Type 2 diabetes mellitus with hyperglycemia, without long-term current use of insulin Stasis edema of both lower extremities Lumbar degenerative disc disease Obesity (BMI 30-39.9) Chronic rhinitis Hiatal hernia Erectile dysfunction Surgical History History of bronchoscopy History of endoscopy Hx of colonoscopy Hx of cardiac catheterization History of nasal surgery History of carpal tunnel surgery Family History Father No problems noted. Mother Chronic kidney disease (CKD) Heart attack Other Mental health problem Social History Household Members: Spouse, Family and Children Household Members Other:: adult children Housing: House Are you a primary cattle care worker to a significant other at home: No Do you presently have visiting nurse or other home services: Yes ([employer]) Alcohol intake: never Patient Tobacco Use Status: Never used Tobacco e-Cigarette/Vaping Use: Never Used Second Hand Smoke Exposure: Yes (employees smoked atwork) service: No Current occupational status: disabled Cognitive needs: No Hearing needs: No Vision needs: No Review of Systems Const All systems reviewed & are unremarkable except as noted in HPI and below Denies weakness ENT Denies dizziness Card Reports chest pain, Reports chest pain at rest, Denies chest pain with activity, Denies syncope, Denies rapid heart rate, Denies pedal edema, Denies edema, Denies leg edema, Denies lightheadedness, Denies palpitations, Denies dyspnea, Reports dyspnea on exertion and Denies orthopnea Resp Denies cough, Denies dyspnea and Reports dyspnea on exertion GI Denies hematochezia and Denies change in stool character Musc Denies abnormal gait, Denies muscle cramps, Denies muscle weakness, Denies numbness, Denies radiating pain into limb and Denies tingling Neuro Denies abnormal gait, Denies dizziness, Denies syncope, Denies numbness, Denies tingling and Denies weakness Endo Denies palpitations Physical Exam Vital Signs: Last Vital Signs Pulse 90 08/19/24 09:49 BP 138/78 08/19/24 09:49 BMI result Body Mass Index 33.2 Const General: cooperative, healthy appearing, comfortable and no acute distress Orientation/consciousness: patient oriented x3 Neck Neck: Yes normal visual inspection and Yes no JVD Resp Effort & Inspection: normal respiratory effort Auscultation: clear to auscultation bilaterally, no crackles, no rales, no rhonchi and no wheezes Cardio Rate: regular rate Rhythm: regular rhythm Heart sounds: S1 normal heart sound present, S2 normal heart sound present, no gallops, no murmurs and no rubs Neuro General: patient oriented x3 Extrem General: Yes normal to inspection, No no pedal edema and No calf tenderness Psych Appearance: grossly normal Mental Status: mental status grossly normal Speech and movement: Normal speech and movement present Office Procedures EKG Details: Today, read by me, Normal sinus rhythm with left axis deviation, RBBB, inferior infarct, rates 89, Qtc 474ms [id number], Complete Assessment & Plan Assessment & Plan (1) Chest discomfort: Code(s): R07.89 - Other chest pain Category: Medical Plan: Report of 2 types of chest discomfort, tightness in the upper chest with exertion and continual aching in left upper chest. He also has shortness of breath with exertion. He does have multiple cardiac risk factors including diabetes, hypertension, hyperlipidemia, obesity. Cardiac catheterization from 2019 showed no significant CAD. Last echo 05/02/2022 showed EF 59%, no valve abnormalities, ascending aorta 3.9 cm. EKG done today shows sinus rhythm with sinus arrhythmia, right bundle branch block, rate 89. To evaluate his symptoms he underwent a stress echocardiogram on 08/08/2024 with exercise 8 minutes, severe shortness of breath, no checks discomfort and no EKG changes of ischemia. His echo images were nondiagnostic for ischemia. Since he continues to report symptoms will further evaluate with a CTA of the coronary arteries. Will plan to premedicate prior to the procedure due to his iodine allergy. Not likely to have obstructive CAD however due to persistent report of shortness of breath and chest tightness with exertion will further evaluate. Continue with risk factor modification. Continue aspirin indefinitely. Recommend statin use if no contraindication. Continue metoprolol. Signs and symptoms of angina reviewed. Emergency care if ever needed for symptoms. Cardiology follow-up 3 months, sooner if needed. (2) Hypertension: Code(s): I10 - Essential (primary) hypertension Category: Medical Qualifiers: Hypertension type: primary hypertension Qualified Code(s): I10 - Essential (primary) hypertension Plan: Blood pressure goal less than 130/80. Near goal today. Continue amlodipine, metoprolol, hydralazine, hydrochlorothiazide, olmesartan. (3) RBBB: Code(s): I45.10 - Unspecified right bundle-branch block Category: Medical Plan: Chronic finding. (4) JOSÉ (obstructive sleep apnea): Comment: JOSÉ W/CPAP-does not always use Code(s): G47.33 - Obstructive sleep apnea (adult) (pediatric) Category: Medical Plan: He does not wear CPAP. He uses oxygen during the night. (5) Pure hypercholesterolemia: Code(s): E78.00 - Pure hypercholesterolemia, unspecified Category: Medical Plan: [place] LDL goal less than 70 in patient with diabetes. He is not on statin for unclear reason. Would recommend start of statin therapy unless contraindicated. Plan I discussed with the patient the potential for coronary artery disease given his symptomatology, risk factors, and recent events. We deliberated on non-invasive CT coronary angiogram versus invasive coronary angiogram for accurate arterial health status. The risks of contrast due allergy and renal implications were considered. We also discussed esophageal concerns and discussed follow up with Dr Bowens. I ensured that he understands and consents to the proposed investigations, emphasizing the importance of widespread cardiac symptom monitoring and immediate presentation if indicated. Orders: Orders CT Cardiac Coronary Angio Today I10 - Essential (primary) hypertension, I45.10 - Unspecified right bundle-branch block, R06.02 - Shortness of breath, R07.89 - Other chest pain Basic Metabolic Panel Today R07.89 - Other chest pain Patient Instructions: - Continue prescribed medications, including metoprolol as directed. - Monitor for increased chest pain, breath shortness, or new symptoms. - Follow a healthy diet and refrain from allergens. - Coordinate with Dr. Bowens regarding esophageal evaluation and Dr Oates for shortness of breath. - Attend upcoming cardiac evaluation appointments. - Seek emergency care if symptoms suggest a heart attack. Patient was informed and verbally consented to the use of an ambient scribe for clinic note documentation during this visit. Visit time spent on chart review, interview, assessment, orders, documentation. Coding Level of Care Code Est Pt Level 4 (28625) Complex EM visit Add On G2211 Diagnoses Chest discomfort R07.89 Primary hypertension I10 Hypertension type: primary hypertension RBBB I45.10 JOSÉ (obstructive sleep apnea) G47.33 Pure hypercholesterolemia E78.00 CPT Codes EKG - CPT: 76583-[id number], Complete ([id number]) Time Spent (min) 36
[2024-08-19 09:49] VITALS: BP 138/78; PULSE 90; BMI 33.2
--- OUTSIDE RECORDS SUMMARY | 2024-08-19 10:12 | XMS_ITS | Data Portability ---
Author Organization [facility], [facility] Address [address] [place] [address] Care Team Providers Care Clother In Name Role Phone DENNIS HOLDEN Cooper Apprentice Unavailable Assessment No assessment recorded. Plan of Treatment Reminders Order Date Submit Date Provider Last Modified By Organization Details Last Modified Time Details Appointments None recorded. Lab None recorded. Referral None recorded. Procedures None recorded. Surgeries None recorded. Imaging None recorded. Medication Orders TobraDex 0.3 %-0.1 % eye drops,susp ension 2017 018 INTER[id number], [address], [place], [id number], 8 10:09:33 Xiidra 5 % eye drops in a dropperett e 2016 017 INTERFACE Note #[id number], [address], [place], [id number], 7 10:10:00 Patient TargetsNo targets recorded. Patient Instructions Encounter Date Encounter Id Patient Instructions Last Modified By Organization Details Last Modified Time 07/06/2015 [id number] RTC 6 months for HVF 24-2SS with IOP check or per Dr. Collins. jmandile Not available 07/13/2015 13:43:44 07/18/2016 [id number] RX given for glasses Warm compresses, artificial tears, hydration and Thompsons 3 fatty acids (fish oil, flax seed, etc) for dry eye symptoms. Start Xiidra 2x/day. Return 6 weeks or sooner as needed. jmerlin Not available 07/18/2016 10:29:44 12/15/2017 [id number] Tobradex drops four times a day for seven days and it should conitnue to improve. Return with any increase in symptoms including pain, discharge, light sensitivity, or change in vision. jmerlin Not available 12/15/2017 10:12:03 Reason for Referral None Reported. Procedures Surgical History Date Name Laterality Status Provider Name and Address Organization Details Recorded Time 07/19/19 17 Refraction completed [facility] 07/18/2016 09:44:19 07/06/19 16 Fundus Photography completed Dennis Holden, [address], [address], [facility] 07/09/2015 09:03:40 07/06/19 16 Refraction completed [facility] 07/06/2015 15:33:28 Imaging Results None recorded. Procedure Notes None recorded. Medical Equipment None Reported. Allergies Allergen ID Allergen Name Allergen Category Reaction Reaction Severity Criticality Documentation Date Start Date Code Code System Note Provider Name and Address Organization Details Recorded Time 581771 iodine medicatio n Not available Not available Not available 07/06/2015 5933 RxNorm [facility] 6 15:18:45 328995 Demerol medicatio n Not available Not available Not available 07/06/2015 04674 1 RxNorm [facility] 6 15:18:45 322069 acetamino phen / oxycodone medicatio n Not available Not available Not available 07/06/2015 56308 3 RxNorm [facility] 6 15:18:45 233802 shellfish derived food,medi cation Not available Not available Not available 07/06/2015 46848 UNK [facility] 15:18:45 Medications Name Sig Start Date [...] SNOMED-CT Code Diagnosis ICD10 Code Diagnosis Note [id number] Dennis Mari Holden, [facility], [address] [address] 07/06/2015 14:58:29 07/06/2015 16:23:42 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 refer to ophthalmol ogy. scheduled to see Dr. Collins for OCT, exam and VF on August. Dry eyes 877183494 H04.1 29 rec AT d Retinal tear 21544087 H3 3.309 well sealed tear with laser temp OD. reviewed syp of rd, rtc if occur. Presbyopia 81593245 H52. 4 [id number] Cody Arshad, OD [facility], [address] [address] 07/18/2016 08:57:54 07/18/2016 10:20:43 Myopia 46330818 H52.13 Presbyopia 54521891 H52. 4 Dry eyes 031984460 H04.1 29 Not relieved with constant use of ATs, warm compresses Retinal tear 10009869 H3 3.301 well sealed [id number] Cody Arshad, OD [facility], [address] [address] 12/15/2017 09:17:25 12/15/2017 10:11:50 Acute atopic conjunctivitis 07677360 H10.11 Secondary to probable foreign body (no FB seen) Health Concerns Section Related Observation LastModified by Organization Detai ls LastModified Time None Recorded Concern Status LastModified by Organization Details LastModified Time None Recorded Advance Directives Directive None Recorded Payers Encounter Date Sequence Insurance Name Policy Number Policy Reyna Covered Member ID Reyna Member ID Guarantor Name 07/06/2015 1 [place] [employer] Keaton Cullen [id number] Keaton Cullen 07/06/2015 2 [place]ICAID-[place] [facility] Keaton Cullen [id number] Keaton Cullen 07/18/2016 1 [place] B[place] [facility] Keaton Cullen [id number] Keaton Cullen 07/18/2016 2 [place] [facility] Keaton Cullen [id number] Keaton Cullen 12/15/2017 1 [place] [facility] Keaton Cullen [id number] Keaton Cullen 12/15/2017 2 [place] [facility] Keaton Cullen [id number] Keaton Cullen Notes Date Note Type Note Provider Name and Address Organization Details Recorded Time 07/18/2016 text/html Diabetic Eye ExamReported bypatient.Quality: type II diabetes Context:no history of retinopathy Associated Symptoms:normal visionDry EyeReported bypatient.Location :bilateral Severity:no pain Duration:constant Onset/Timing:recur rent episode Context:taking drops as indicated Modifying Factors:nothing gives relief; OTC medication Associated Symptoms:irritatio n; eyes feel sticky all the time Cody Arshad OD [address] [place], [address], [facility] 07/18/2016 10:29:56 12/15/2017 text/html Ocular PainReported bypatient.Location :right; eye(s) Severity:severe;wo rsening Duration:2 days Onset/Timing:sudde n Context:prior eye surgery(Detached Retina) Modifying Factors:eye protection worn; eye(s) flushed immediately after chemical exposure; nothing relieves Associated Symptoms:normal vision; no diplopia;photophob ia;redness;tearing ;pain level 7/10;foreign body sensation Yesterday thinks a bug came out. No discharge, recent URI, crusting. Cody Arshad OD [address] [place], [address], [facility] 12/15/2017 10:12:58
== END 2024-08-19 10:38 | disposition home or self-care (01) ==
LOC: HO.HCS 09:32
PROVIDERS: PCP Internal Medicine; Visit Provider Nurse Practitioner Family
DX: R07.89 Other chest pain (principal); I10 Essential (primary) hypertension; I45.10 Unspecified right bundle-branch block; G47.33 Obstructive sleep apnea (adult) (pediatric); E78.00 Pure hypercholesterolemia, unspecified
CPT/HCPCS: 93010; 99214; G2211

== ENCOUNTER → 2024-08-19 09:31 | Outpatient (BNVA) | payer OTHER, SELFPAY | PROVIDERS: PCP Internal Medicine; Visit Provider Nurse Practitioner Family | DX: I10 Essential (primary) hypertension (principal); E78.5 Hyperlipidemia, unspecified; I45.10 Unspecified right bundle-branch block; R07.9 Chest pain, unspecified; R07.89 Other chest pain; G47.33 Obstructive sleep apnea (adult) (pediatric); E78.00 Pure hypercholesterolemia, unspecified; Z99.81 Dependence on supplemental oxygen; Z99.89 Dependence on other enabling machines and devices | CPT/HCPCS: 93005; 99212 ==

== ENCOUNTER 2024-08-26 09:23 | Outpatient (AMB) | payer OTHER, SELFPAY ==
--- NOTE | 2024-08-26 09:28 | MHC.OFFVIS ---
Vital Signs 08/26/24 09:34 Height 5 ft 8 in Weight 225 lb BMI 34.2 BP 129/78 Blood Pressure Location Lt brachial Position Sitting Pulse 78 Pulse Oximetry (%) 97 Oxygen Delivery Method Room Air Intake Visit Reasons: 6m Intake Note: Patient 6 month follow up dysphagia. Patient cc: swallowing difficulty/chocking sensation with liquid and solid, GERD, left side of abdominal pain and right side of abdomen he is feeling a little ball come out when he doing exercises, denies any other GI issues. Chief Customer Officer Required: No Accompanied by: Self / Same As Patient Allergies iodine [Iodine] Allergy (Severe, Verified 08/26/24 09:27) Anaphylaxis lisinopril Allergy (Severe, Verified 08/26/24 09:27) Rash metformin Allergy (Severe, Verified 08/26/24 09:27) diarrhea shellfish derived Allergy (Severe, Verified 08/26/24 09:27) Anaphylaxis meperidine [From Demerol] Allergy (Mild, Verified 08/26/24 09:27) RASH oxycodone [From Percocet] Adverse Reaction (Mild, Verified 08/26/24 09:27) MOUTH DRYNESS,RASH Mercury Detox Allergy (Severe, Uncoded 08/05/24 09:19) Throat closing (charcoal) HPI HPI 6m: Details: 59 yr old m here for f/u RECAP: seen initially by [facility] for satiety, intermittent dysphagia EGD/colo 10/17/23 Endoscopy Findings: gastritis Colonoscopy Findings: colon polyps internal hemorrhoids Path: tubular adenomas with reflux changes and esophagitis EGD 03/05/24 Findings: Larynx:normal Esophagus: GE junction at 40 cm, diaphragm hiatus at 40 cm, normal mucosa, --balloon dilation done to 20 mm at UES and LEs, superficial tear seen at UES Stomach: Normal, reduced motility, Grade 2 flap valve on retroflexed examination of the cardia. pylorus dilated with wire guided balloon, 20 mm- no tears seen Duodenum: Normal bulb and descending duodenum, Intervention: wire guided dilation of pylorus and dilation of esophagus Impression/Findings: possible gastroparesis maybe related to trulicity --last GES 2022--was actually a little fast Nutrient levels are normal INTERIM: He still feels food getting stuck,in upper chest and epigastric area stopped trulciity now and now on jardiance He has no nausea, vomiting, hematemesis, hematochezia fever or chills he has cramps ongoing, takes b vitamins still taking ppi before bed time EXAM: GENERAL: The patient is well developed and nontoxic. VITAL SIGNS:see workflow HEENT: Nonicteric sclerae, PERRLA, EOMI. Oropharynx clear. Moist mucous membranes. Conjunctivae appear well perfused. No thyroid mass. CHEST: Chest wall is nontender. HEART: Regular rate and rhythm without murmurs. LUNGS: Clear to auscultation bilaterally. ABDOMEN: Soft, positive bowel sounds, nontender, no organomegaly.no flank tenderness SKIN: No rash, no excessive bruising, petechiae, or purpura. NEUROLOGIC: Cranial nerves II-XII intact without motor/sensory deficit. Psych: normal affect A/P: 1 / dysphagia and satiety, GERD and esophagitis, ongoing, temp benefit from prior dialtion for about 1-2 months--maybe motility effect from DM PLAN: 1/ repeat EGD with dilation, savary and lawson 2/ repeat GES 3/ depedning on above will decide on plan e.g motegrity, reglan, baclofen, changing PPI etc PFSH Medical History Dyspnea Standard chest x-ray abnormal Diabetes mellitus RBBB (right bundle branch block) Laryngospasm Chronic bronchitis Supplemental oxygen dependent Onychomycosis Hx of fracture of fibula GERD without esophagitis Asthma-COPD overlap syndrome Diastasis recti JOSÉ (obstructive sleep apnea) Bursitis Low back pain Claustrophobia Hemoptysis Anxiety Insomnia Migraine Pure hypercholesterolemia Benign essential hypertension Type 2 diabetes mellitus with hyperglycemia, without long-term current use of insulin Stasis edema of both lower extremities Lumbar degenerative disc disease Obesity (BMI 30-39.9) Chronic rhinitis Hiatal hernia Erectile dysfunction Surgical History History of bronchoscopy History of endoscopy Hx of colonoscopy Hx of cardiac catheterization History of nasal surgery History of carpal tunnel surgery Family History Father No problems noted. 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) Alcohol intake: never Patient Tobacco Use Status: Never used Tobacco e-Cigarette/Vaping Use: Never Used Second Hand Smoke Exposure: Yes (employees smoked atwork) service: No Current occupational status: disabled Cognitive needs: No Hearing needs: No Vision needs: No Physical Exam Vital Signs: Oxygen Delivery Method Room Air 08/26/24 09:34 BMI result Body Mass Index 34.2 Assessment & Plan Assessment & Plan (1) Early satiety: Comment: 57-year-old diabetic- May be gastroparesis Code(s): R68.81 - Early satiety Category: Medical Plan: as above Orders: Orders NM gastric emptying study Today R68.81 - Early satiety Coding Level of Care Code Est Pt Level 4 (98412) Diagnoses Early satiety R68.81
[2024-08-26 09:34] VITALS: BP 129/78; PULSE 78; O2SAT 97; BMI 34.2
--- OUTSIDE RECORDS SUMMARY | 2024-08-26 09:54 | XMS_ITS | Data Portability ---
Author Organization [facility], [facility] Address [address] [place] [address] Care Team Providers Care Fitness Floor Attendant Name Role Phone DENNIS HOLDEN Clothing Sorter Unavailable Assessment No assessment recorded. Plan of Treatment Reminders Order Date Submit Date Provider Last Modified By Organization Details Last Modified Time Details Appointments None recorded. Lab None recorded. Referral None recorded. Procedures None recorded. Surgeries None recorded. Imaging None recorded. Medication Orders TobraDex 0.3 %-0.1 % eye drops,susp ension 2017 018 INTERFACE [employer] [facility] #[id number], [address], [place], [id number], 8 10:09:33 Xiidra 5 % eye drops in a dropperett e 2016 017 INTERFACE [facility] #[id number], [address], [place], [id number], 7 10:10:00 Patient TargetsNo targets recorded. Patient Instructions Encounter Date Encounter Id Patient Instructions Last Modified By Organization Details Last Modified Time 07/06/2015 [id number] RTC 6 months for HVF 24-2SS with IOP check or per Dr. Collins. jmandile Not available 07/13/2015 13:43:44 07/18/2016 [id number] RX given for glasses Warm compresses, artificial tears, hydration and [place] 3 fatty acids (fish oil, flax seed, etc) for dry eye symptoms. Start Xiidra 2x/day. Return 6 weeks or sooner as needed. jmerlin Not available 07/18/2016 10:29:44 12/15/2017 [id number] Tobradex drops four times a day for seven days and it should conitnue to improve. Return with any increase in symptoms including pain, discharge, light sensitivity, or change in vision. jmerlin Not available 12/15/2017 10:12:03 Reason for Referral None Reported. Procedures Surgical History Date Name Laterality Status Provider Name and Address Organization Details Recorded Time 07/19/19 17 Refraction completed [facility] 07/18/2016 09:44:19 07/06/19 16 Fundus Photography completed Dennis Holden, [address], [address], [facility] 07/09/2015 09:03:40 07/06/19 16 Refraction completed [facility] 07/06/2015 15:33:28 Imaging Results None recorded. Procedure Notes None recorded. Medical Equipment None Reported. Allergies Allergen ID Allergen Name Allergen Category Reaction Reaction Severity Criticality Documentation Date Start Date Code Code System Note Provider Name and Address Organization Details Recorded Time 930656 iodine medicatio n Not available Not available Not available 07/06/2015 5933 RxNorm [facility] 6 15:18:45 253489 Demerol medicatio n Not available Not available Not available 07/06/2015 57594 1 RxNorm [facility] 6 15:18:45 080179 acetamino phen / oxycodone medicatio n Not available Not available Not available 07/06/2015 61762 3 RxNorm [facility] 6 15:18:45 675998 shellfish derived food,medi cation Not available Not available Not available 07/06/2015 23468 [facility]K [facility] 15:18:45 Medications Name Sig Start [...] SNOMED-CT Code Diagnosis ICD10 Code Diagnosis Note [id number] Dennis Mari Holden, OD [facility], [address] [address] 07/06/2015 14:58:29 07/06/2015 16:23:42 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 refer to ophthalmol ogy. scheduled to see Dr. Collins for OCT, exam and VF on August. Dry eyes 637383483 H04.1 29 rec AT d Retinal tear 47226474 H3 3.309 well sealed tear with laser temp OD. reviewed syp of rd, rtc if occur. Presbyopia 26079413 H52. 4 [id number] Cody Arshad, OD [facility], [address] [address] 07/18/2016 08:57:54 07/18/2016 10:20:43 Myopia 54897178 H52.13 Presbyopia 85776974 H52. 4 Dry eyes 080768430 H04.1 29 Not relieved with constant use of ATs, warm compresses Retinal tear 65410438 H3 3.301 well sealed [id number] Cody Arshad, OD [facility], [address] [address] 12/15/2017 09:17:25 12/15/2017 10:11:50 Acute atopic conjunctivitis 58064593 H10.11 Secondary to probable foreign body (no FB seen) Health Concerns Section Related Observation LastModified by Organization Detai ls LastModified Time None Recorded Concern Status LastModified by Organization Details LastModified Time None Recorded Advance Directives Directive None Recorded Payers Encounter Date Sequence Insurance Name Policy Number Policy Reyna Covered Member ID Reyna Member ID Guarantor Name 07/06/2015 1 [place] [employer] Keaton Cullen [id number] Keaton Cullen 07/06/2015 2 [place] [facility] Keaton Cullen [id number] Keaton Cullen 07/18/2016 1 [place]: [facility] Keaton Cullen [id number] Keaton Cullen 07/18/2016 2 [place] [facility] Keaton Cullen [id number] Keaton Cullen 12/15/2017 1 [place] [facility] Keaton Cullen [id number] Keaton Cullen 12/15/2017 2 [place] [facility] Keaton Cullen [id number] Keaton Cullen Notes Date Note Type Note Provider Name and Address Organization Details Recorded Time 07/18/2016 text/html Diabetic Eye ExamReported bypatient.Quality: type II diabetes Context:no history of retinopathy Associated Symptoms:normal visionDry EyeReported bypatient.Location :bilateral Severity:no pain Duration:constant Onset/Timing:recur rent episode Context:taking drops as indicated Modifying Factors:nothing gives relief; OTC medication Associated Symptoms:irritatio n; eyes feel sticky all the time Cody Arshad OD [address] [place], [address], [facility] 07/18/2016 10:29:56 12/15/2017 text/html Ocular PainReported bypatient.Location :right; eye(s) Severity:severe;wo rsening Duration:2 days Onset/Timing:sudde n Context:prior eye surgery(Detached Retina) Modifying Factors:eye protection worn; eye(s) flushed immediately after chemical exposure; nothing relieves Associated Symptoms:normal vision; no diplopia;photophob ia;redness;tearing ;pain level 7/10;foreign body sensation Yesterday thinks a bug came out. No discharge, recent URI, crusting. Cody Arshad OD [address] [place], [address], [facility] 12/15/2017 10:12:58
== END 2024-08-26 09:52 | disposition home or self-care (01) ==
LOC: HO.HGI 09:24
PROVIDERS: PCP Internal Medicine; Visit Provider Internal Medicine Gastroenterology
DX: R68.81 Early satiety (principal)
CPT/HCPCS: 99214

== ENCOUNTER → 2024-08-26 09:23 | Outpatient (BNVA) | payer OTHER, SELFPAY | PROVIDERS: PCP Internal Medicine; Visit Provider Internal Medicine Gastroenterology | DX: R68.81 Early satiety (principal) | CPT/HCPCS: 99212 ==

== ENCOUNTER 2024-09-26 12:19 | Outpatient (REF) | payer OTHER, SELFPAY ==
--- NOTE | ~2024-09-26 | CT_ITS ---
EXAMINATION: CT CHEST WITHOUT IV CONTRAST INDICATION: R07.89 - Other chest pain COMPARISON: Comparison is made with the prior examination dated 11/22/2020. TECHNIQUE: Helical CT scan of the chest was performed without intravenous contrast. Coronal and sagittal reformatted images were generated and reviewed. This CT exam was performed with one or more of the following dose reduction techniques: automated exposure control, adjustment of the mA and/or kV according to patient size, use of iterative reconstruction technique. DLP: 202 mGy-cm CHEST: THYROID: The thyroid is unremarkable. LUNGS: Again seen is a 3 mm nodule at the right lung apex (series 4, image 16). No additional pulmonary nodules are identified. There are no focal airspace opacities. MEDIASTINUM: There is no mediastinal lymphadenopathy. JB: Evaluation of the hilar regions is limited by lack of intravenous contrast material. CARDIOVASCULATURE: The heart is normal in size. There is no pericardial effusion. The thoracic aorta is normal in caliber. DEGREE OF CORONARY CALCIFICATION: mild PLEURA: There is no pleural effusion. No pneumothorax. MAIN AIRWAYS: The mainstem bronchi and proximal branches are patent. AXILLA: There is no axillary lymphadenopathy. BONES AND SOFT TISSUES: There is severe degenerative disc disease of the lower thoracic spine. UPPER ABDOMEN: The visualized portions of the liver, spleen, and adrenals have an unremarkable unenhanced appearance. CT/CT chest wo IV con IMPRESSION: No acute abnormality is identified. Electronically signed by: Oneal Elizabeth MD 09/26/2024 01:46 PM EDT
--- OUTSIDE RECORDS SUMMARY | 2024-09-26 12:36 | XMS_ITS | Data Portability ---
Author Organization [facility], [facility] Address [address] [place] [address] Care Team Providers Care Senior Ux Developer Name Role Phone DENNIS HOLDEN Show Host Unavailable Assessment No assessment recorded. Plan of Treatment Reminders Order Date Submit Date Provider Last Modified By Organization Details Last Modified Time Details Appointments None recorded. Lab None recorded. Referral None recorded. Procedures None recorded. Surgeries None recorded. Imaging None recorded. Medication Orders TobraDex 0.3 %-0.1 % eye drops,susp ension 2017 018 INTERFACE [facility] #[id number], [address] [place], [id number], 8 10:09:33 Xiidra 5 % eye drops in a dropperett e 2016 017 INTERFACE [facility] #[id number], [address] [place], [id number], 7 10:10:00 Patient TargetsNo targets recorded. Patient Instructions Encounter Date Encounter Id Patient Instructions Last Modified By Organization Details Last Modified Time 07/06/2015 [id number] RTC 6 months for HVF 24-2SS with IOP check or per Dr. Collins. jmandile Not available 07/13/2015 13:43:44 07/18/2016 [id number] RX given for glasses Warm compresses, artificial tears, hydration and [place] 3 fatty acids (fish oil, flax seed, etc) for dry eye symptoms. Start Xiidra 2x/day. Return 6 weeks or sooner as needed. jmerlin Not available 07/18/2016 10:29:44 12/15/2017 [id number] Tobradex drops four times a day for seven days and it should conitnue to improve. Return with any increase in symptoms including pain, discharge, light sensitivity, or change in vision. jmerlin Not available 12/15/2017 10:12:03 Reason for Referral None Reported. Procedures Surgical History Date Name Laterality Status Provider Name and Address Organization Details Recorded Time 07/19/19 17 Refraction completed [facility] 07/18/2016 09:44:19 07/06/19 16 Fundus Photography completed Dennis Holden, [address], [address], [facility] 07/09/2015 09:03:40 07/06/19 16 Refraction completed [facility] 07/06/2015 15:33:28 Imaging Results None recorded. Procedure Notes None recorded. Medical Equipment None Reported. Allergies Allergen ID Allergen Name Allergen Category Reaction Reaction Severity Criticality Documentation Date Start Date Code Code System Note Provider Name and Address Organization Details Recorded Time 991591 iodine medicatio n Not available Not available Not available 07/06/2015 5933 RxNorm [facility] 6 15:18:45 810905 Demerol medicatio n Not available Not available Not available 07/06/2015 26082 1 RxNorm [facility] 6 15:18:45 423143 acetamino phen / oxycodone medicatio n Not available Not available Not available 07/06/2015 42158 3 RxNorm [facility] 6 15:18:45 329816 shellfish derived food,medi cation Not available Not available Not available 07/06/2015 01061 UNK [facility] 6 15:18:45 Medications Name Sig Start [...] SNOMED-CT Code Diagnosis ICD10 Code Diagnosis Note [id number] Dennis Mari Holden, OD [facility], [address] [address] 07/06/2015 14:58:29 07/06/2015 16:23:42 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 refer to ophthalmol ogkyle. scheduled to see Dr. Collins for OCT, exam and VF on August. Dry eyes 103753235 H04.1 29 rec AT [facility] Retinal tear 78166374 H3 3.309 well sealed tear with laser temp OD. reviewed syp of rd, rtc if occur. Presbyopia 64303699 H52. 4 [id number] Cody Arshad, OD [facility], [address] [address] 07/18/2016 08:57:54 07/18/2016 10:20:43 Myopia 57555805 H52.13 Presbyopia 93739116 H52. 4 Dry eyes 084541163 H04.1 29 Not relieved with constant use of ATs, warm compresses Retinal tear 78790745 H3 3.301 well sealed [id number] Cody Arshad, OD [facility], [address] [address] 12/15/2017 09:17:25 12/15/2017 10:11:50 Acute atopic conjunctivitis 60493315 H10.11 Secondary to probable foreign body (no FB seen) Health Concerns Section Related Observation LastModified by Organization Detai ls LastModified Time None Recorded Concern Status LastModified by Organization Details LastModified Time None Recorded Advance Directives Directive None Recorded Payers Insurance Date Sequence Insurance Name Policy Number Policy Reyna Covered Member ID Reyna Member ID Guarantor Name 05/09/2018 1 [place] B-[place]: [employer] SERVICES Keaton Cullen [id number] Keaton Cullen 05/09/2018 2 [facility] Keaton Cullen [id number] Keaton Cullen Notes Date Note Type Note Provider Name and Address Organization Details Recorded Time 07/18/2016 text/html Diabetic Eye ExamReported bypatient.Quality: type II diabetes Context:no history of retinopathy Associated Symptoms:normal visionDry EyeReported bypatient.Location :bilateral Severity:no pain Duration:constant Onset/Timing:recur rent episode Context:taking drops as indicated Modifying Factors:nothing gives relief; OTC medication Associated Symptoms:irritatio n; eyes feel sticky all the time Cody Arshad OD [address] [place] [address], [address], [facility] 07/18/2016 10:29:56 12/15/2017 text/html Ocular PainReported bypatient.Location :right; eye(s) Severity:severe;wo rsening Duration:2 days Onset/Timing:sudde n Context:prior eye surgery(Detached Retina) Modifying Factors:eye protection worn; eye(s) flushed immediately after chemical exposure; nothing relieves Associated Symptoms:normal vision; no diplopia;photophob ia;redness;tearing ;pain level 7/10;foreign body sensation Yesterday thinks a bug came out. No discharge, recent URI, crusting. Cody Arshad OD [address] [place], [address], [facility] 12/15/2017 10:12:58
--- OUTSIDE RECORDS SUMMARY | 2024-09-26 12:36 | XMS_ITS | Clinical Summary ---
Author Organization [address] [facility] Address [address] [place] [address] Phone Care Team Providers Care Chief Business Officer Name Role Phone Oliverio Emerson MD Primary Care Provider Allergies Active Allergy Reactions Criticality Noted Date Comments Iodine Anaphylaxis High 09/03/2024 Lisinopril Rash 09/03/2024 Meperidine Rash 09/03/2024 Mercury (Elemental) Anaphylaxis High 09/03/2024 Metformin Diarrhea 09/03/2024 Oxycodone Rash,Dry Mouth 09/03/2024 Shellfish Derived Anaphylaxis High 09/03/2024 Medications albuterol 2.5 mg /3 mL (0.083 %) nebulizer solution Take 3 mL (2.5 mg total) by nebulization every 6 (six) hours if needed for wheezing. Active albuterol HFA (PROAIR HFA ; PROVENTIL HFA ; VENTOLIN HFA) 90 mcg/actuation inhaler Inhale 2 puffs by mouth every 6 (six) hours if needed for wheezing. Active amLODIPine (NORVASC) 10 mg tablet Take 1 tablet (10 mg total) by mouth 1 (one) time each day. Active aspirin 81 mg chewable tablet Chew 1 tablet (81 mg total) 1 (one) time each day. Active azithromycin (ZITHROMAX) 250 mg tablet Take 1 tablet (250 mg total) by mouth 1 (one) time each day. Active glucose blood test strip 1 each by Other route if needed. Use as instructed Active budesonide (PULMICORT) 0.5 mg/2 mL nebulizer solution Take 2 mL (0.5 mg total) by nebulization 1 (one) time each day. Rinse mouth with water after use to reduce aftertaste and incidence of candidiasis. Do not swallow. Active cholecalciferol (VITAMIN D-3) 1,250 mcg (50,000 unit) capsule Take 1 capsule (50,000 Units total) by mouth 1 (one) time per week. Active ammonium lactate (AMLACTIN) 12 % cream Apply topically if needed for dry skin. 560 g 2 5 09/04/19 26 Active Encounters Date Type Department Care Team Description 09/03/2024 10:45 AM EDT Consult Orthopedic Surgery [place] [id number] [address] Mike Velasquez DPM Controlled type 2 diabetes with neuropathy (CMS/HCC V24, CMS/HCC V28) (Primary Dx); Arthritis of both feet; Pain in toes of both feet; Hammertoes of both feet; Dermatophytosis, nail from Last 3 Months Social History Tobacco Use Types Packs/Day Years Used Date Smoking Tobacco: Never Assessed Sex and Gender Information Value Date Recorded Sex Assigned at Not on file Legal Sex Male 9:08 PM EST Gender Identity Not on file Sexual Orientation Not on file Last Filed Vital Signs Vital Sign Reading Time Taken Comments Blood Pressure - - Pulse - - Temperature - - Respiratory Rate - - Oxygen Saturation - - Inhaled Oxygen Concentration - - Weight 102 kg (225 lb) 09/03/2024 11:12 AM EDT Height 172.7 cm (5' 8 ) 09/03/2024 11:12 AM EDT Body Mass Index 34.21 09/03/2024 11:12 AM EDT Plan of Treatment Upcoming Encounters Date Type Department Care Team (Late st Contact Info) Description 12/04/2024 10:00 AM EDT Office Visit Orthopedic Surgery [facility] [address] [address] Mike Velasquez DPM [address] [address] Health Maintenance Due Date Last Done Comments Diabetes: Annual GFR (Glomerular Filtration Rate) 1964 Diabetes: Annual Foot Exam 1974 Diabetes: Annual Retina Eye Exam 1974 Zoster Vaccines (1 of 2) 2014 Pneumococcal Vaccine: 50+ Years (2 of 2 - PCV) 12/07/2017 12/07/2016 Cholesterol Screening (Lipid Panel) 04/14/2023 Colorectal Cancer Screening: Colonoscopy 04/14/2023 Depression Screening 04/14/2023 HIV Screening 04/14/2023 Hepatitis C Screening 04/14/2023 Medicare Annual Wellness Visit 04/14/2023 Social Influencers of Health Screening 04/14/2023 COVID-19 Vaccine ( - season) 2023 RSV Immunization Adult Patients (1 - Risk 60-74 years 1-dose series) 2024 Diabetes: Annual Urine Albumin-Creatinine Ratio (uACR) 05/30/2024 Diabetes: Blood Sugar Control Test (HGBA1C) 05/30/2024 Influenza Vaccine (#1) 2024 , 02/09/2021, 01/10/2019, Additional history exists DTaP,Tdap,and Td Vaccines (3 - Td or Tdap) 08/25/2031 08/24/2021, 11/10/2015 HIB Vaccines Aged Out No longer eligi [...] to complete this topic RSV Immunization Patients Under 20 months Aged Out No longer eligible based on patient's age to complete this topic Varicella Vaccines Aged Out No longer eligible based on patient's age to complete this topic Insurance MEDICAID - [place] [facility] MEDICARE Member Subscriber Plan / Payer (Ef fective 2018-Present) Name:KEATON REDDY Relation to Subscriber:Self Name:Keaton Reddy Payer ID:[id number] Group ID:[id number] Type:Not on file Address: [address] [place] [phone] Care Teams Chief Business Officer Relationship Specialty Start Date End Date Oliverio Emerson MD [address] [place] [address] [address] [place], [place] PCP - General 02/21/22
== END 2024-09-26 12:20 | disposition home or self-care (01) ==
LOC: HO.CT 12:19
PROVIDERS: PCP Internal Medicine; Visit Provider Hospitalist
DX: R07.89 Other chest pain (principal); R93.89 Abnormal findings on diagnostic imaging of other specified body structures; K44.9 Diaphragmatic hernia without obstruction or gangrene
CPT/HCPCS: 71250

== ENCOUNTER → 2024-09-26 12:22 | Outpatient (BNV) | payer OTHER, SELFPAY | PROVIDERS: PCP Internal Medicine; Visit Provider Radiology Diagnostic Radiology | DX: R07.89 Other chest pain (principal) | CPT/HCPCS: 71250 ==

== ENCOUNTER → 2024-10-03 08:09 | Outpatient (REF) | payer OTHER, SELFPAY ==
--- NOTE | ~2024-10-03 | NM_ITS ---
EXAMINATION: [place] RADIONUCLIDE SOLID FOOD GASTRIC EMPTYING 4-HOUR STUDY CLINICAL INFORMATION: R68.81 - Early satiety, bloated, GERD COMPARISON: None TECHNIQUE: A standard meal consisting of 4 oz of Egg Beaters brand tagged with 0.92 microcuries Tc-99m Sulfur Colloid, 8 oz water and 2 slices of toast with jelly was administered orally to the patient. Images were obtained using a dual head gamma camera in the anterior and posterior projections over of the stomach immediately post ingestion and at hourly intervals up to 4 hours post ingestion. The anterior and posterior counts at each time interval were averaged using the geometric mean and expressed as percentage of the immediate post ingestion counts. FINDINGS: There is good visualization of activity in the stomach immediately post ingestion. As the study progresses, there is good clearance of activity from the stomach and visualization of progressively increasing small bowel activity. By the end of the study, there is no retention noted in the stomach. Retention in the stomach at each time interval was: 1 hour 74% (normal 37%-90%) 2 hours 49% (normal 30%-60%) 3 hours 7% 4 hours 0% (normal 0%-10%) Emptying half-time = 117 minutes NJ/NJ gastric emptying study IMPRESSION: Normal 4-hour solid food gastric emptying study. Gastric emptying study grading per JNMT Consensus Recommendations in 2008 (https://tech.snmjournals.org/content/36/1/44) Grade 1 (mild retention): 11-20% at 4h Grade 2 (moderate retention): 21-35% at 4h Grade 3 (severe retention): 36-50% at 4h Grade 4 (very severe retention): >50% retention at 4h Electronically signed by: Garo Doran MD 10/03/2024 03:05 PM EDT
--- OUTSIDE RECORDS SUMMARY | 2024-10-03 08:12 | XMS_ITS | Clinical Summary ---
Author Organization 175 [facility] Address [address] [place] [address] Phone Care Team Providers Care Pantograph Machine Operator Name Role Phone Oliverio Emerson MD Primary [...] 09/03/2024 10:45 AM EDT Consult Orthopedic Surgery [place] [phone] [address] Mike Velasquez DPM Controlled type 2 diabetes [...] 10:00 AM EDT Office Visit Orthopedic Surgery [facility] [address] [address] Mike Velasquez DPM [address] [address] Health Maintenance Due Date Last Done Comments [...] to complete this topic Insurance MEDICAID - [place] [facility] [facility] [facility] MEDICARE Member Subscriber Plan / Payer (Ef fective 2018-Present) Name:KEATON REDDY Relation to Subscriber:Self Name:Keaton Reddy Payer ID:[id number] Group ID:[id number] Type:Not on file Address: [address] [place] [address] Care Teams Pantograph Machine Operator Relationship Specialty Start Date End Date Oliverio Emerson MD [address] [place] [address] [address] [place], [place] PCP - General 02/21/22
--- OUTSIDE RECORDS SUMMARY | 2024-10-03 08:12 | XMS_ITS | Data Portability ---
Author Organization [facility], [facility] Address [address] [place] [address] Care Team Providers Care Cutting Supervisor Name Role Phone DENNIS HOLDEN Cut In Station Operator Unavailable Assessment No assessment recorded. Plan of Treatment Reminders Order Date Submit Date Provider Last Modified By Organization Details Last Modified Time Details Appointments None recorded. Lab None recorded. Referral None recorded. Procedures None recorded. Surgeries None recorded. Imaging None recorded. Medication Orders TobraDex 0.3 %-0.1 % eye drops,susp ension 2017 018 INTERFACE [facility] #[id number], [address] [place], [id number], 8 10:09:33 Xiidra 5 % eye drops in a dropperett e 2016 017 INTERFACE [facility] #[id number], [address] [place], [id number], 7 10:10:00 Patient TargetsNo targets recorded. Patient Instructions Encounter Date Encounter Id Patient Instructions Last Modified By Organization Details Last Modified Time 07/06/2015 [id number] RTC 6 months for HVF 24-2SS with IOP check or per Dr. Collins. jmandile Not available 07/13/2015 13:43:44 07/18/2016 [id number] RX given for glasses Warm compresses, artificial tears, hydration and [place] 3 fatty acids (fish oil, flax seed, etc) for dry eye symptoms. Start Xiidra 2x/day. Return 6 weeks or sooner as needed. jmerlin Not available 07/18/2016 10:29:44 12/15/2017 [id number] Tobradex drops four times a day for seven days and it should conitnue to improve. Return with any increase in symptoms including pain, discharge, light sensitivity, or change in vision. jmerlin Not available 12/15/2017 10:12:03 Reason for Referral None Reported. Procedures Surgical History Date Name Laterality Status Provider Name and Address Organization Details Recorded Time 07/19/19 17 Refraction completed [facility] 07/18/2016 09:44:19 07/06/19 16 Fundus Photography completed Dennis Holden, [address], [address], [facility] 07/09/2015 09:03:40 07/06/19 16 Refraction completed [facility] 07/06/2015 15:33:28 Imaging Results None recorded. Procedure Notes None recorded. Medical Equipment None Reported. Allergies Allergen ID Allergen Name Allergen Category Reaction Reaction Severity Criticality Documentation Date Start Date Code Code System Note Provider Name and Address Organization Details Recorded Time 759506 iodine medicatio n Not available Not available Not available 07/06/2015 5933 RxNorm [facility] 6 15:18:45 034827 Demerol medicatio n Not available Not available Not available 07/06/2015 05250 1 RxNorm [facility] 6 15:18:45 614693 acetamino phen / oxycodone medicatio n Not available Not available Not available 07/06/2015 35161 3 RxNorm [facility] 6 15:18:45 038035 shellfish derived food,medi cation Not available Not available Not available 07/06/2015 88530 UNK [facility] 6 15:18:45 Medications Name Sig [...] SNOMED-CT Code Diagnosis ICD10 Code Diagnosis Note [id number] Dennis Mari Holden, [facility] [address] [address] 07/06/2015 14:58:29 07/06/2015 16:23:42 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 refer to ophthalmol ogkyle. scheduled to see Dr. Collins for OCT, exam and VF on August. Dry eyes 536600610 H04.1 29 rec AT [facility] Retinal tear 84109634 H3 3.309 well sealed tear with laser temp OD. reviewed syp of rd, rtc if occur. Presbyopia 80789826 H52. 4 [id number] Cody Arshad, OD [facility], [address] [address] 07/18/2016 08:57:54 07/18/2016 10:20:43 Myopia 63833120 H52.13 Presbyopia 41107908 H52. 4 Dry eyes 435607704 H04.1 29 Not relieved with constant use of ATs, warm compresses Retinal tear 72834415 H3 3.301 well sealed [id number] Cody Arshad, OD [facility], [address] [address] 12/15/2017 09:17:25 12/15/2017 10:11:50 Acute atopic conjunctivitis 67526914 H10.11 Secondary to probable foreign body (no FB seen) Health Concerns Section Related Observation LastModified by Organization Detai ls LastModified Time None Recorded Concern Status LastModified by Organization Details LastModified Time None Recorded Advance Directives Directive None Recorded Payers Insurance Date Sequence Insurance Name Policy Number Policy Reyna Covered Member ID Reyna Member ID Guarantor Name 05/09/2018 1 [place]: [employer] Keaton Cullen [id number] Keaton Cullen 05/09/2018 [facility] Keaton Cullen [id number] Keaton Cullen Notes Date Note Type Note Provider Name and Address Organization Details Recorded Time 07/18/2016 text/html Diabetic Eye ExamReported bypatient.Quality: type II diabetes Context:no history of retinopathy Associated Symptoms:normal visionDry EyeReported bypatient.Location :bilateral Severity:no pain Duration:constant Onset/Timing:recur rent episode Context:taking drops as indicated Modifying Factors:nothing gives relief; OTC medication Associated Symptoms:irritatio n; eyes feel sticky all the time Cody Arshad OD [address] [place] [address], [address], [facility] 07/18/2016 10:29:56 12/15/2017 text/html Ocular PainReported bypatient.Location :right; eye(s) Severity:severe;wo rsening Duration:2 days Onset/Timing:sudde n Context:prior eye surgery(Detached Retina) Modifying Factors:eye protection worn; eye(s) flushed immediately after chemical exposure; nothing relieves Associated Symptoms:normal vision; no diplopia;photophob ia;redness;tearing ;pain level 7/10;foreign body sensation Yesterday thinks a bug came out. No discharge, recent URI, crusting. Cody Arshad OD [address] [place], [address], [facility] 12/15/2017 10:12:58
== END ==
LOC: HO.NUCMED 08:09
PROVIDERS: PCP Internal Medicine; Visit Provider Internal Medicine Gastroenterology
DX: R68.81 Early satiety (principal)
CPT/HCPCS: 78264; A9541

== ENCOUNTER → 2024-10-03 08:10 | Outpatient (BNV) | payer OTHER, SELFPAY | PROVIDERS: PCP Internal Medicine; Visit Provider Radiology Diagnostic Radiology | DX: R68.81 Early satiety (principal) | CPT/HCPCS: 78264 ==

== ENCOUNTER 2024-10-11 03:30 | Emergency (ER) | payer OTHER, SELFPAY ==
--- NOTE | 2024-10-11 | ECG_ITS ---
Test Reason : CHEST PAIN Blood Pressure : */* mmHG Vent. Rate : 76 BPM Atrial Rate : 76 BPM P-R Int : 220 ms QRS Dur : 146 ms QT Int : 402 ms P-R-T Axes : 19 -28 5 degrees QTcB Int : 452 ms Sinus rhythm with 1st degree A-V block Right bundle branch block Abnormal ECG When compared with ECG of 03-Aug-2024 19:40, No significant change was found Referred By: Generic ED Physician Electronically Signed By: Armando Alonzo
--- NOTE | ~2024-10-11 | XR_ITS ---
CLINICAL HISTORY: sob 1 view chest x-ray Comparison: CT/SR - CT CHEST WITHOUT IV CONTRAST - 09/26/24 13:03 EDT Findings: The lungs are clear. Normal size heart. No acute fracture. IMPRESSION: 1. No acute findings. This document has been electronically signed by: Kena Waggoner MD on 10/11/2024 07:37:54
[2024-10-11 03:34] VITALS: BP 153/94; PULSE 80; RESP 20; TEMP 36.6; O2SAT 96; BMI 34.2
[2024-10-11 03:48] VITALS: BP 161/91; PULSE 80; RESP 18; TEMP 36.6; O2SAT 97
--- OUTSIDE RECORDS SUMMARY | 2024-10-11 04:03 | XMS_ITS | Clinical Summary ---
Author Organization [facility] Address [address] [place] [address] [place] [address] Phone Care Team Providers Care Shoe Repairer Name Role Phone Oliverio Emerson MD Primary Care Provider [phone] Allergies Active Allergy Reactions Criticality Noted Date Comments Iodine Throat Tightness High 11/15/2021 Lisinopril Rash Low 11/15/2021 Meperidine Rash Low 11/15/2021 Metformin Diarrhea 11/15/2021 Oxycodone Rash Low 11/15/2021 Shellfish Containing Products Anaphylaxis High 11/15 Medications No known medications Social History Tobacco Use Types Packs/Day Years Used Date Smoking Tobacco: Never Assessed Education Answer Date Recorded Are you interested in more education? Not on george e 07/15/2022 Are you concerned about learning? Not on file 07/15/2022 No 07/15/2022 No 07/15/2022 Digital Access Answer Date Recorded No 08/15/2022 No 08/15/2022 Reliable internet access at home? Not on file 08/15/2022 Device with a working camera? Not on file Sex and Gender Information Value Date Recorded Sex Assigned at Not on file Legal Sex Male 9:42 PM EDT Gender Identity Not on file Sexual Orientation Not on file Last Filed Vital Signs Vital Sign Reading Time Taken Comments Blood Pressure 142/91 11/15/2021 1:51 PM EDT Pulse 94 11/15/2021 5:30 PM EDT Temperature 36.8 C (98.2 F) 11/15/2021 1:51 PM EDT Respiratory Rate 29 11/15/2021 5:30 PM EDT Oxygen Saturation 98% 11/15/2021 5:30 PM EDT Inhaled Oxygen Concentration - - Weight 104.3 kg (230 lb) 11/15/2021 1:51 PM EDT Height 172.7 cm (5' 8 ) 11/15/2021 1:51 PM EDT Body Mass Index 34.97 11/15/2021 1:51 PM EDT Plan of Treatment Not on file Medical Devices Not on file Insurance MEDICARE PART A & B Member Subscriber Plan / Payer (Ef fective 1992-Present) Name:Cullen Keaton Member ID:[id number] Relation to Subscriber:Self Name:Keaton Cullen Subscriber ID:[id number] Payer ID:[id number] Group ID:Not on file Type:Medicare Address: [facility] [employer] [facility] [employer] [facility] [address] [address] [facility] ONE CARE MEDICARE REPLACEMENT [place] [id number] MEDICARE PART A & B Member Subscriber Plan / Payer (Ef fective 1992-Present) Name:Subhash Keaton Member ID:[id number] Relation to Subscriber:Self Name:Keaton Cullen Subscriber ID:[id number] Payer ID:[id number] Group ID:Not on file Type:Medicare Address: [employer] [address] ONE CARE MEDICARE REPLACEMENT MEDICARE PART A & B CARE MEDICARE REPLACEMENT MEDICARE PART A & B ONE CARE MEDICARE REPLACEMENT [place] [facility] MEDICARE PART A & B CARE MEDICARE REPLACEMENT MEDICARE PART A & B ONE CARE MEDICARE REPLACEMENT MEDICARE PART A & B [id number] [place] [address] ONE CARE MEDICARE REPLACEMENT MEDICARE PART A & B CARE MEDICARE REPLACEMENT [place] [id number] MEDICARE PART A & B ONE CARE MEDICARE REPLACEMENT Care Teams Shoe Repairer Relationship Specialty Start Date End Date Oliverio Emerson MD [address] [place] [address] [place] [address] PCP - General Internal Medicine 11/15/21 Additional Source Comments The information contained in this document represents components of the legal health record. It is not the complete legal health record.[facility]
--- OUTSIDE RECORDS SUMMARY | 2024-10-11 04:03 | XMS_ITS | Clinical Summary ---
Author Organization [address] [facility] Address [address] [place] [address] Phone Care Team Providers Care Welder Tack Name Role Phone Oliverio Emerson MD Primary [...] 09/03/2024 10:45 AM EDT Consult Orthopedic Surgery [place] [address] [address] Mike Velasquez DPM Controlled type 2 diabetes [...] 10:00 AM EDT Office Visit Orthopedic Surgery [facility] [address] [address] Mike Velasquez DPM [address] [address] Health Maintenance Due Date Last Done Comments Diabetes: Annual GFR (Glomerular Filtration Rate) 1964 Diabetes: Annual Foot Exam 1974 Diabetes: Annual Retina Eye Exam 1974 Zoster Vaccines (1 of 2) 2014 Pneumococcal Vaccine: 50+ Years (2 of 2 - PCV) 12/07/2017 12/07/2016 Cholesterol Screening (Lipid Panel) 04/14/2023 Colorectal Cancer Screening: Colonoscopy 04/14/2023 HIV Screening 04/14/2023 Hepatitis C Screening 04/14/2023 Medicare Annual Wellness Visit 04/14/2023 Social Influencers of Health Screening 04/14/2023 COVID-19 Vaccine ( - season) 2023 Depression Screening 03/20/2024 RSV Immunization Adult Patients (1 - Risk [...] to complete this topic Insurance MEDICAID - [place] [employer] MEDICARE Member Subscriber Plan / Payer (Ef fective 2018-Present) Name:KEATON REDDY Relation to Subscriber:Self Name:Keaton Reddy Payer ID:[id number] Group ID:[id number] Type:Not on file Address: [address] [place] [address] Care Teams Welder Tack Relationship Specialty Start Date End Date Oliverio Emerson MD [address] [place] [address] [address] [place], [place] PCP - General 02/21/22
[2024-10-11 04:27] LABS: MANUAL DIFF FLAG NO
[2024-10-11 04:28] LABS: Hematocrit 39.6 % (42.0-52.0); Hemoglobin 13.8 g/dl (14.0-18.0); Imm Gran Abs Auto 0.02 X10*3/uL (0.00-0.03); Imm Gran Pct Auto 0.4 % (0.0-0.4); Lymphocytes Absolute Auto 1.6 X10*3/uL (1.2-4.9); Mean Corpuscular HGB Conc 34.8 g/dl (31.0-36.0); Mean Corpuscular Hemoglobin 30.3 pg (27.0-33.0); Mean Corpuscular Volume 87.0 fL (80.0-98.0); NRBC Abs Auto 0.000 X10*3/uL (0.0-0.012); NRBC Pct Auto 0.0 /100WBC (0.0-0.2); Platelet Count 207 X10*3/uL (160-400); Red Blood Count 4.55 X10*6/uL (4.60-5.80); White Blood Count 5.7 X10*3/uL (4.8-10.8)
[2024-10-11 04:42] LABS: Alanine Aminotransferase 26 U/L (0-40); Albumin Level 3.8 g/dL (3.5-5.0); Alkaline Phosphatase 59 U/L (39-117); Anion Gap 9 (12-20); Aspartate Amino Transferase 19 U/L (5-37); Blood Urea Nitrogen 14 mg/dL (9-16); Calcium 8.4 mg/dL (8.4-10.2); Carbon Dioxide 25 mmol/L (22-29); Chloride 109 mmol/L (96-108); Creatinine Clr Calc Pharmacy 84.2; Estimated Glomerular Filt Rate > 60; Potassium 3.8 mmol/L (3.3-5.1); Sodium 139 mmol/L (135-145); Total Protein 6.3 g/dL (6.5-8.0)
[2024-10-11 05:04] LABS: Resp Syncy Virus RNA Qual PCR NEGATIVE (Negative); SARS COV2 PCR INHOUSE NEGATIVE (Negative)
--- NOTE | 2024-10-11 05:33 | ED.SOB ---
HPI - SOB/Dyspnea General Chief Complaint: Dyspnea Stated Complaint: SOB Time Seen by Provider: 10/11/24 04:45 History of Present Illness ED Provider: Yoan Stone MD HPI Narrative: 59-year-old male with a history of asthma who endorses mild chest tightness and subjective asthma/wheeze at home he took a few puffs of his albuterol pump and took an prednisone he felt modest relief before I even evaluate him. Related Data Home Medications ?Medication ?Instructions ?Recorded ?Confirmed aspirin 81 mg tablet,delayed 81 mg PO DAILY 02/18/20 10/11/24 release blood-glucose sensor (FreeStyle #1 ea 04/01/24 10/11/24 Lola 3 Plus Sensor device) metoprolol succinate 50 mg 50 mg PO DAILY 08/19/24 10/11/24 tablet,extended release 24 hr Previous Rx's ?Medication ?Instructions ?Recorded latanoprost 0.005 % eye drops 1 drp ophthalmic (eye) DAILY #7.5 11/24/21 mL epinephrine 0.3 mg/0.3 mL 0.3 mg (0.3 mL) IM Q4H PRN 05/27/22 injection, auto-injector (EpiPen anaphylaxis #2 ea 2-Dread) albuterol sulfate 2.5 mg/3 mL 2.5 mg (3 mL) continuous 12/14/22 (0.083 %) solution for nebulization nebulization QID PRN shortness of breath or wheezing 30 days #480 mL lorazepam 0.5 mg tablet See Rx Instructions .Route 05/23/23 .COMPLEX PRN anxiety 30 days #60 tabs tamsulosin 0.4 mg capsule 0.4 mg PO DAILY 90 days #90 caps 06/21/23 ipratropium 0.5 mg-albuterol 3 mg 3 ml inhalation Q6H PRN shortness 11/16/23 (2.5 mg base)/3 mL nebulization of breath or wheezing #180 mL soln melatonin 5 mg tablet 5 mg PO BEDTIME PRN sleep #30 tabs 01/24/24 cholecalciferol (vitamin D3) 25 25 mcg PO DAILY #90 caps 04/01/24 mcg (1,000 unit) capsule omeprazole 40 mg capsule,delayed 40 mg PO DAILY #30 caps 04/09/24 release fluticasone propionate 50 2 spray intranasal DAILY PRN nasal 05/01/24 mcg/actuation nasal congestion #16 grams spray,suspension (Flonase Allergy Relief) zolpidem 10 mg tablet 10 mg PO BEDTIME PRN insomnia 30 05/01/24 days #30 tabs amlodipine 5 mg tablet 5 mg PO DAILY #90 tabs 06/21/24 blood sugar diagnostic (FreeStyle #100 strips 07/01/24 Lite Strips) clotrimazole 1 % topical cream 1 appl topical BID 4 weeks #45 07/19/24 grams montelukast 10 mg tablet 10 mg PO QPM #90 tabs 07/29/24 prednisone 10 mg tablet 10 mg PO DIRECTED 8 days #20 07/30/24 tabs diclofenac sodium 1 % topical gel 4 g topical QID PRN pain #100 grams 08/05/24 (Voltaren Arthritis Pain) diphenhydramine HCl 25 mg capsule 25 mg PO .COMPLEX allergy 08/20/24 (Benadryl) prophylaxis #3 caps prednisone 20 mg tablet 20 mg PO .COMPLEX #3 tabs 08/20/24 hydrochlorothiazide 25 mg tablet 25 mg PO DAILY #90 tabs 08/28/24 olmesartan 40 mg tablet 40 mg PO DAILY #90 tabs 08/28/24 azithromycin 250 mg tablet 250 mg PO 3XW 28 days #12 tabs 09/13/24 budesonide 0.5 mg/2 mL suspension 0.5 mg (2 mL) inhalation BID 30 09/24/24 for nebulization days #120 mL famotidine 40 mg tablet 40 mg PO BEDTIME #30 tabs 09/24/24 fluticasone fur. 200 mcg-umeclid 1 inh inhalation DAILY 30 days #60 09/24/24 62.5 mcg-vilant 25 mcg ea inhalat.powder (Trelegy Ellipta) hydralazine 50 mg tablet 50 mg PO TID 90 days #270 tabs 09/25/24 tirzepatide 2.5 mg/0.5 mL 2.5 mg (0.5 mL) subcut QWEEK #2 mL 10/09/24 subcutaneous pen injector (Michelle) CANE #1 ea 10/11/24 COMPRESSION STOCKINGS (medium #3 ea 10/11/24 compression - 20 to 30 mm); Knee high albuterol sulfate 90 mcg/actuation 2 puff PO QID PRN shortness of 10/11/24 aerosol inhaler (Ventolin HFA) breath or wheezing 90 days #3 multiple units famotidine 40 mg tablet 40 mg PO BID PRN abdominal pain 10/11/24 #60 tabs Allergies Allergy/AdvReac Type Severity Reaction Status Date / Time iodine (Iodine) Allergy Severe Anaphylaxis Verified 10/11/24 16:56 lisinopril Allergy Severe Rash Verified 10/11/24 16:56 metformin Allergy Severe diarrhea Verified 10/11/24 16:56 shellfish derived Allergy Severe Anaphylaxis Verified 10/11/24 16:56 meperidine (From Demerol) Allergy Mild RASH Verified 10/11/24 16:56 oxycodone (From Percocet) AdvReac Mild MOUTH Verified 10/11/24 16:56 DRYNESS,RASH Mercury Detox Allergy Severe Throat Uncoded 10/11/24 16:56 closing (charcoal) PMFSH Past Medical History Medical History Dyspnea Standard chest x-ray abnormal Diabetes mellitus RBBB (right bundle branch block) Laryngospasm Chronic bronchitis Supplemental oxygen dependent Onychomycosis Hx of fracture of fibula GERD without esophagitis Asthma-COPD overlap syndrome Diastasis recti JOSÉ (obstructive sleep apnea) Bursitis Low back pain Claustrophobia Hemoptysis Anxiety Insomnia Migraine Pure hypercholesterolemia Benign essential hypertension Type 2 diabetes mellitus with hyperglycemia, without long-term current use of insulin Stasis edema of both lower extremities Lumbar degenerative disc disease Obesity (BMI 30-39.9) Chronic rhinitis Hiatal hernia Erectile dysfunction Surgical History History of bronchoscopy History of endoscopy Hx of colonoscopy Hx of cardiac catheterization History of nasal surgery History of carpal tunnel surgery Family History Family History Father No problems noted. 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 Head: Atraumatic Eyes: Anicteric, Normal conjunctiva. ENT: Moist mucosa, no pallor. ? Neck: Supple. Skin: ?No observable rash or bruising on exposed or examined skin Respiratory: Breathing comfortably, No distress.Clear to auscultation bilaterally, symmetric chest expansion, No wheeze, rales, ronchi. Cardiovascular: Regular rate and rhythm. No murmurs or rub. Well perfused periphery, warm extremities. No edema. ? Abdominal: No focal tenderness. Soft, no objective distension. No palpable masses or obvious organomegaly. ?No guarding, no rebound tenderness or other peritoneal findings. : No flank tenderness. Neuro: Alert. Gross movement of all extremities intact. ? Psych: Calm. Cooperative. MSK: No grossly visible deformity. Vital signs: See flowsheet Vital Signs: Vital Signs: Last Vital Signs Temp 97.9 F 10/11/24 05:52 Pulse 80 10/11/24 05:52 Resp 18 10/11/24 05:52 BP 161/91 H 10/11/24 05:52 Pulse Ox 97 10/11/24 05:52 O2 Del Method Room Air 10/11/24 05:52 BMI result Body Mass Index 34.2 Medical Decision Making Medical Decision Making MDM Narrative: Medical Decision Makin-year-old male with asthma reported subjective mild tightness of the chest and asthma symptoms prior to arrival he has had chronic abdominal pain since starting Jardiance but has a nontender abdomen no vomiting no fever doubt intra-abdominal pathology. Regarding the patient's respiratory symptoms there appeared to be mostly resolved at this time he has got no wheezing respiratory distress labored breathing or hypoxia. Preliminary Favored Differential Diagnosis: Asthma, URI, allergic bronchitis among additional considered etiologies Testing Interpreted Independently: Not Applicable Radiology or Lab testing Results Reviewed: Not Applicable Consults: Not Applicable Independent Historians/External Chart Reviews: Not Applicable Social Determinants of Health Impacting MDM/Planning: Not Applicable Lab Data 10/11/24 04:22 10/11/24 04:22 Labs: Lab Results 10/11/24 Range/Units 04:22 WBC 5.7 (4.8-10.8) X10*3/uL RBC 4.55 L (4.60-5.80) X10*6/uL Hgb 13.8 L (14.0-18.0) g/dl Hct 39.6 L (42.0-52.0) % MCV 87.0 (80.0-98.0) fL MCH 30.3 (27.0-33.0) pg MCHC 34.8 (31.0-36.0) g/dl RDW 12.6 (11.0-16.0) % Plt Count 207 D (160-400) X10*3/uL MPV 10.4 (9.4-12.4) fL Immature Gran % (Auto) 0.4 (0.0-0.4) % Neut % (Auto) 58.9 (45-73) % Lymph % (Auto) 29.0 (20-40) % Archuleta % (Auto) 7.8 (2-11) % Eos % (Auto) 3.0 (0-4) % Baso % (Auto) 0.9 (0-2) % Lymph # (Auto) 1.6 (1.2-4.9) X10*3/uL Archuleta # (Auto) 0.4 (0.1-1.2) X10*3/uL Eos # (Auto) 0.2 (0.0-0.4) X10*3/uL Baso # (Auto) 0.1 (0.0-0.2) X10*3/uL Abs Immat Gran (auto) 0.02 (0.00-0.03) X10*3/uL Absolute Neuts (auto) 3.3 (2.0-8.3) x10*3/uL Absolute Nucleated RBC 0.000 (0.0-0.012) X10*3/uL Nucleated RBC % (auto) 0.0 (0.0-0.2) /100WBC Sodium 139 (135-145) mmol/L Potassium 3.8 (3.3-5.1) mmol/L Chloride 109 H (96-108) mmol/L Carbon Dioxide 25 (22-29) mmol/L Anion Gap 9 L (12-20) BUN 14 (9-16) mg/dL Creatinine 1.08 (0.5-1.4) mg/dL Estim Creat Clear Calc 84.2 Estimated GFR > 60 Random Glucose 174 H (60-115) mg/dL Calcium 8.4 D (8.4-10.2) mg/dL Total Bilirubin 0.4 (0.0-1.0) mg/dL AST 19 (5-37) U/L ALT 26 (0-40) U/L Alkaline Phosphatase 59 (39-117) U/L Total Protein 6.3 L (6.5-8.0) g/dL Albumin 3.8 (3.5-5.0) g/dL Influenza Type A (PCR) NEGATIVE (Negative) Influenza Type B (PCR) NEGATIVE (Negative) RSV RNA Qual (PCR) NEGATIVE (Negative) SARS-CoV-2 RNA (RT-PCR) NEGATIVE (Negative) Discharge Plan Discharge Clinical Impression: Asthma Patient Disposition: Home, Self-Care Instructions: Asthma (DC) Additional Instructions: DISCHARGE DIAGNOSES: Mild asthma HISTORY OF PRESENTATION: ?Shortness of breath subjective asthma EMERGENCY DEPARTMENT COURSE,TESTS, TREATMENTS: While in the ED today you were evaluated had no wheezing and had reassuring physical examination You had an EKG and lab work that was unchanged generally from previous no alarming or concerning findings DISCHARGE MEDICATIONS: ?[We have made no changes to your regular medication regimen] FOLLOW-UP: ?Call your primary or general physician soon as possible to discuss your symptoms, your ED visit and to discuss follow up plans Call your primary doctor and your pulmonary doctor INSTRUCTIONS ?& RETURN PRECAUTIONS: If any symptoms change first call your primary physician, if it is after-hours your primary doctors office should have a provider personal banking representative you can speak with. If the symptoms are severe or very concerning to you then call 911 or return to the ED. Yoan Stone MD Emergency Physician [facility] Prescriptions: No Action latanoprost 0.005 % drops 1 drp ophthalmic (eye) DAILY Qty: 7.5 3RF Rx Instructions: as directed epinephrine [EpiPen 2-Dread] 0.3 mg/0.3 mL auto-injector 0.3 mg IM Q4H PRN (Reason: anaphylaxis) Qty: 2 0RF albuterol sulfate 2.5 mg /3 mL (0.083 %) solution for nebulization 2.5 mg continuous nebulization QID PRN (Reason: shortness of breath or wheezing) 30 Days Qty: 480 5RF tamsulosin 0.4 mg capsule 0.4 mg PO DAILY 90 Days Qty: 90 1RF ipratropium-albuterol 0.5 mg-3 mg(2.5 mg base)/3 mL solution for nebulization 3 ml inhalation Q6H PRN (Reason: shortness of breath or wheezing) Qty: 180 11RF omeprazole 40 mg capsule,delayed release(DR/EC) 40 mg PO DAILY Qty: 30 6RF (DME) FreeStyle Lite Strips Strip See Rx Instructions .ROUTE .COMPLEX Qty: 100 5RF Dose Instruction: USE DIRECTED TO TEST 5 TIMES DAILY. Rx Instructions: USE DIRECTED TO TEST 5 TIMES DAILY. clotrimazole 1 % cream 1 appl topical BID 28 Days Qty: 45 2RF montelukast 10 mg tablet 10 mg PO QPM Qty: 90 0RF diphenhydramine HCl [Benadryl] 25 mg capsule 25 mg PO .COMPLEX Qty: 3 0RF Rx Instructions: 25 mg orally; Take 1 tablet the morning of day Before CT scan, Take 1 tablet the evening Before the CT scan, Take 1 tablet the DAY of the CT scan ( 2 hours prior) prednisone 20 mg tablet 20 mg PO .COMPLEX Qty: 3 0RF Rx Instructions: 20 mg orally; Take 1 tablet the morning of day Before CT scan, Take 1 tablet the evening Before the CT scan, Take 1 tablet the DAY of the CT scan ( 2 hours prior) olmesartan 40 mg tablet 40 mg PO DAILY Qty: 90 0RF hydrochlorothiazide 25 mg tablet 25 mg PO DAILY Qty: 90 0RF azithromycin 250 mg tablet 250 mg PO 3XW 28 Days Qty: 12 0RF Rx Instructions: Take 1 tablet on Monday/Monday/Monday Trelegy Ellipta 200-62.5-25 mcg blister with device 1 inh inhalation DAILY 30 Days Qty: 60 12RF famotidine 40 mg tablet 40 mg PO BEDTIME Qty: 30 0RF budesonide 0.5 mg/2 mL suspension for nebulization 0.5 mg inhalation BID 30 Days Qty: 120 0RF hydralazine 50 mg tablet 50 mg PO TID 90 Days Qty: 270 0RF Mounjaro 2.5 mg/0.5 mL pen injector 2.5 mg subcut QWEEK Qty: 2 3RF Rx Instructions: for 4 weeks aspirin 81 mg tablet,delayed release (DR/EC) 81 mg PO DAILY lorazepam 0.5 mg tablet See Rx Instructions .ROUTE .COMPLEX PRN (Reason: anxiety) 30 Days Qty: 60 0RF Rx Instructions: 1 to 2 tablets orally twice a day as needed; PRN; prednisone 10 mg tablet 10 mg PO DIRECTED 8 Days Qty: 20 0RF Rx Instructions: TAke 4 tabs for 2 days, then 3 tabs for 2 days, then 2 tabs for 2 days, then 1 tab for 2 days famotidine 40 mg tablet 40 mg PO BID PRN (Reason: abdominal pain) Qty: 60 0RF albuterol sulfate [Ventolin HFA] 90 mcg/actuation HFA aerosol inhaler 2 puff PO QID PRN (Reason: shortness of breath or wheezing) 90 Days Qty: 3 3RF (DME) COMPRESSION STOCKINGS (medium compression - 20 to 30 mm); Knee high medium compression See Rx Instructions .Route .MEDSUPPLY Qty: 3 11RF Rx Instructions: As directed (DME) CANE See Rx Instructions .Route .MEDSUPPLY Qty: 1 0RF Rx Instructions: As directed melatonin 5 mg tablet 5 mg PO BEDTIME PRN (Reason: sleep) Qty: 30 11RF (DME) FreeStyle Lola 3 Plus Sensor Device See Rx Instructions .ROUTE .MEDSUPPLY Qty: 1 Rx Instructions: As directed cholecalciferol (vitamin D3) 25 mcg (1,000 unit) capsule 25 mcg PO DAILY Qty: 90 2RF zolpidem 10 mg tablet 10 mg PO BEDTIME PRN (Reason: insomnia) 30 Days Qty: 30 3RF fluticasone propionate [Flonase Allergy Relief] 50 mcg/actuation spray,suspension 2 spray intranasal DAILY PRN (Reason: nasal congestion) Qty: 16 5RF Rx Instructions: administer into each nostril diclofenac sodium [Voltaren Arthritis Pain] 1 % gel 4 g topical QID PRN (Reason: pain) Qty: 100 3RF Rx Instructions: apply to foot includes sole/toes/top of foot amlodipine 5 mg tablet 5 mg PO DAILY Qty: 90 3RF Rx Instructions: BP medication metoprolol succinate 50 mg tablet extended release 24 hr 50 mg PO DAILY Interventions: ED Discharge Assessment Last Done: 10/11/24 05:52 Discharge Date/Time: 10/11/24 05:53 Print Language: Tajik
[2024-10-11 05:52] VITALS: BP 161/91; PULSE 80; RESP 18; TEMP 36.6; O2SAT 97
== END 2024-10-11 05:53 | disposition home or self-care (01) ==
PROVIDERS: Emergency Provider Emergency Medicine; PCP Internal Medicine
DX: R06.02 Shortness of breath (principal); R07.89 Other chest pain; J45.909 Unspecified asthma, uncomplicated; Z79.899 Other long term (current) drug therapy; Z03.818 Encounter for observation for suspected exposure to other biological agents ruled out
CPT/HCPCS: 71045; 80053; 85025; 87637; 93005; 96127; 99212; 99283; 99284

== ENCOUNTER → 2024-10-11 03:51 | Outpatient (BNV) | payer OTHER, SELFPAY | PROVIDERS: Emergency Provider Emergency Medicine; PCP Internal Medicine; Visit Provider Internal Medicine Cardiovascular Disease | DX: I45.10 Unspecified right bundle-branch block (principal); I44.0 Atrioventricular block, first degree | CPT/HCPCS: 93010 ==

== ENCOUNTER → 2024-10-11 04:45 | Outpatient (BNV) | payer OTHER, SELFPAY | PROVIDERS: Emergency Provider Emergency Medicine; PCP Internal Medicine; Visit Provider Radiology Diagnostic Radiology | DX: R68.89 Other general symptoms and signs (principal) | CPT/HCPCS: 71045 ==

== ENCOUNTER 2024-10-11 15:48 | Outpatient (AMB) | payer OTHER, SELFPAY ==
--- OUTSIDE RECORDS SUMMARY | 2024-10-11 15:51 | XMS_ITS | Clinical Summary ---
Author Organization [facility] Address [address] [place] [address] [place] [address] Phone Care Team Providers Care Video Clerk Name Role Phone Oliverio Emerson MD Primary Care Provider [phone] Allergies Active Allergy Reactions Criticality Noted Date [...] Payer (Ef fective 1992-Present) Name:Cullen Keaton Member ID:[id number] Relation to Subscriber:Self Name:Keaton Cullen Subscriber ID:[id number] Payer ID:[id number] Group ID:Not on file Type:Medicare Address: [facility] [employer] [facility] [address] [address] [facility] ONE CARE MEDICARE REPLACEMENT [place] [id number] MEDICARE PART A & B Member Subscriber Plan / Payer (Ef fective 1992-Present) Name:Subhash Keaton Member ID:[id number] Relation to Subscriber:Self Name:Keaton Cullen Subscriber ID:[id number] Payer ID:[id number] Group ID:Not on file Type:Medicare Address: [facility] [address] ONE CARE MEDICARE REPLACEMENT MEDICARE PART A & B CARE MEDICARE REPLACEMENT MEDICARE PART A & B ONE CARE MEDICARE REPLACEMENT [place] [facility] MEDICARE PART A & B CARE MEDICARE REPLACEMENT MEDICARE PART A & B ONE CARE MEDICARE REPLACEMENT MEDICARE PART A & B [id number] [place] [address] ONE CARE MEDICARE REPLACEMENT MEDICARE PART A & B CARE MEDICARE REPLACEMENT [place] [id number] MEDICARE PART A & B ONE CARE MEDICARE REPLACEMENT Care Teams Video Clerk Relationship Specialty Start Date End Date Oliverio Emerson MD [address] [place] [address] [place] [address] PCP - General Internal Medicine 11/15/21 Additional Source Comments The information contained in this document represents components of the legal health record. It is not the complete legal health record.[facility]
--- OUTSIDE RECORDS SUMMARY | 2024-10-11 15:51 | XMS_ITS | Clinical Summary ---
Author Organization [address] [facility] Address [address] [place] [address] Phone Care Team Providers Care Legal Word Processor Name Role Phone Oliverio Emerson MD Primary [...] 09/03/2024 10:45 AM EDT Consult Orthopedic Surgery [place] [address] [address] Mike Velasquez DPM Controlled type 2 diabetes [...] 10:00 AM EDT Office Visit Orthopedic Surgery [facility] [address] [address] Mike Velasquez DPM [address] [address] Health Maintenance Due Date Last Done Comments [...] to complete this topic Insurance MEDICAID - [place] [facility] [facility] MEDICARE Member Subscriber Plan / Payer (Ef fective 2018-Present) Name:KEATON REDDY Relation to Subscriber:Self Name:Keaton Reddy Payer ID:[id number] Group ID:[id number] Type:Not on file Address: [address] [place] [address] Care Teams Legal Word Processor Relationship Specialty Start Date End Date Oliverio Emerson MD [address] [place] [address] [address] [place], [place] PCP - General 02/21/22
--- OUTSIDE RECORDS SUMMARY | 2024-10-11 15:51 | XMS_ITS | Data Portability ---
Author Organization [facility], [facility] Address [address] [place] [address] Care Team Providers Care Software Systems Engineer Name Role Phone DENNIS HOLDEN Internal Audit Senior Manager Unavailable Assessment No assessment recorded. Plan of Treatment Reminders Order Date Submit Date Provider Last Modified By Organization Details Last Modified Time Details Appointments None recorded. Lab None recorded. Referral None recorded. Procedures None recorded. Surgeries None recorded. Imaging None recorded. Medication Orders TobraDex 0.3 %-0.1 % eye drops,susp ension 2017 018 INTERFACE [facility] #[id number], [address] [place], [id number], 8 10:09:33 Xiidra 5 % eye drops in a dropperett e 2016 017 INTERFACE [facility] #[id number], [address] [place], [id number], 7 10:10:00 Patient TargetsNo targets recorded. Patient Instructions Encounter Date Encounter Id Patient Instructions Last Modified By Organization Details Last Modified Time 07/06/2015 [id number] RTC 6 months for HVF 24-2SS with IOP check or per Dr. Collins. jmandile Not available 07/13/2015 13:43:44 07/18/2016 [id number] RX given for glasses Warm compresses, artificial tears, hydration and [place] 3 fatty acids (fish oil, flax seed, etc) for dry eye symptoms. Start Xiidra 2x/day. Return 6 weeks or sooner as needed. jmerlin Not available 07/18/2016 10:29:44 12/15/2017 [id number] Tobradex drops four times a day for seven days and it should conitnue to improve. Return with any increase in symptoms including pain, discharge, light sensitivity, or change in vision. jmerlin Not available 12/15/2017 10:12:03 Reason for Referral None Reported. Procedures Surgical History Date Name Laterality Status Provider Name and Address Organization Details Recorded Time 07/19/19 17 Refraction completed [facility] 07/18/2016 09:44:19 07/06/19 16 Fundus Photography completed Dennis Holden, [address], [address], [facility] 07/09/2015 09:03:40 07/06/19 16 Refraction completed [facility] 07/06/2015 15:33:28 Imaging Results None recorded. Procedure Notes None recorded. Medical Equipment None Reported. Allergies Allergen ID Allergen Name Allergen Category Reaction Reaction Severity Criticality Documentation Date Start Date Code Code System Note Provider Name and Address Organization Details Recorded Time 740857 iodine medicatio n Not available Not available Not available 07/06/2015 5933 RxNorm [facility] 6 15:18:45 725693 Demerol medicatio n Not available Not available Not available 07/06/2015 81280 1 RxNorm [facility] 6 15:18:45 845808 acetamino phen / oxycodone medicatio n Not available Not available Not available 07/06/2015 83281 3 RxNorm [facility] 6 15:18:45 206985 shellfish derived food,medi cation Not available Not available Not available 07/06/2015 35236 UNK [facility] 6 15:18:45 Medications Name Sig [...] SNOMED-CT Code Diagnosis ICD10 Code Diagnosis Note [id number] Dennis Mari Holden, OD [facility] [address] [address] 07/06/2015 14:58:29 07/06/2015 16:23:42 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 refer to ophthalmol ogkyle. scheduled to see Dr. Collins for OCT, exam and VF on August. Dry eyes 229525507 H04.1 29 rec AT [facility] Retinal tear 30251591 H3 3.309 well sealed tear with laser temp OD. reviewed syp of rd, rtc if occur. Presbyopia 90245911 H52. 4 [id number] Cody Arshad, OD [facility], [address] [address] 07/18/2016 08:57:54 07/18/2016 10:20:43 Myopia 88793465 H52.13 Presbyopia 42447438 H52. 4 Dry eyes 540099950 H04.1 29 Not relieved with constant use of ATs, warm compresses Retinal tear 32911360 H3 3.301 well sealed [id number] Cody Arshad, OD [facility], [address] [address] 12/15/2017 09:17:25 12/15/2017 10:11:50 Acute atopic conjunctivitis 55790397 H10.11 Secondary to probable foreign body (no FB seen) Health Concerns Section Related Observation LastModified by Organization Detai ls LastModified Time None Recorded Concern Status LastModified by Organization Details LastModified Time None Recorded Advance Directives Directive None Recorded Payers Insurance Date Sequence Insurance Name Policy Number Policy Reyna Covered Member ID Reyna Member ID Guarantor Name 05/09/2018 1 [place] B[place] [employer] Keaton Cullen [id number] Keaton Cullen 05/09/2018 2 [place] [facility] Keaton Cullen [id number] Keaton Cullen Notes Date Note Type Note Provider Name and Address Organization Details Recorded Time 7 text/html Dry EyeReported by PatientHPIFor associated symptoms, patient reportsirritation(eyes feel sticky all the time). For location, patient reportsbilateral. For severity, patient reportsno pain. For duration, patient reportsconstant. For onset/timing, patient reportsrecurrent episode. For context, patient reportstaking drops as indicated. For modifying factors, patient reportsnothing gives reliefandotc medication. Diabetic Eye ExamReported by PatientDiabetic RetinopathyFor quality, patient reportstype ii diabetes. For context, patient reportsno history of retinopathy. For associated symptoms, patient reportsnormal vision. Cody Arshad OD [address] [place], [address], [facility] 07/18/2016 10:29:56 8 text/html Ocular PainReported by PatientHPIFor severity, patient reportsworseningbut reportssevere. For context, patient reportsprior eye surgery (detached retina). For associated symptoms, patient reportsphotophobia,redne ss,tearing,pain level 7/10, andforeign body sensationbut reportsnormal visionandno diplopia. For location, patient reportsrightandeye(s). For duration, patient reports2 days. For onset/timing, patient reportssudden. For modifying factors, patient reportseye protection worn,eye(s) flushed immediately after chemical exposure, andnothing relieves. Yesterday thinks a bug came out. No discharge, recent URI, crusting. Cody Arshad, LES [address] [place], [address], [facility] 12/15/2017 10:12:58
--- NOTE | 2024-10-11 16:05 | MHC.PC.OV ---
Vital Signs 10/11/24 16:06 Height 5 ft 8 in Weight 224 lb BMI 34.1 BP 130/76 Blood Pressure Location Lt brachial Position Sitting Pulse Source Pulse Oximeter Temp 97.3 F Temp Source Temporal Artery Scan Pulse Oximetry (%) 97 Oxygen Delivery Method Room Air Intake Visit Reasons: abd pain Manager Style Required: No Accompanied by: Self / Same As Patient Allergies iodine (Iodine) Allergy (Severe, Verified 10/11/24 16:56) Anaphylaxis lisinopril Allergy (Severe, Verified 10/11/24 16:56) Rash metformin Allergy (Severe, Verified 10/11/24 16:56) diarrhea shellfish derived Allergy (Severe, Verified 10/11/24 16:56) Anaphylaxis meperidine (From Demerol) Allergy (Mild, Verified 10/11/24 16:56) RASH oxycodone (From Percocet) Adverse Reaction (Mild, Verified 10/11/24 16:56) MOUTH DRYNESS,RASH Mercury Detox Allergy (Severe, Uncoded 10/11/24 16:56) Throat closing (charcoal) Medication List - Last Reconciled 10/11/24 by Oliverio Emerson MD albuterol sulfate 2.5 mg (3 mL) continuous nebulization QID PRN 30 days albuterol sulfate 90 mcg/actuation (Ventolin HFA) 2 puffs PO QID PRN 90 days amlodipine 5 mg PO DAILY aspirin 81 mg PO DAILY azithromycin 250 mg PO 3XW 28 days blood sugar diagnostic (FreeStyle Lite Strips) USE DIRECTED TO TEST 5 TIMES DAILY. blood-glucose sensor (FreeStyle Lola 3 Plus Sensor device) As directed budesonide 0.5 mg (2 mL) inhalation BID 30 days cholecalciferol (vitamin D3) 25 mcg PO DAILY clotrimazole 1% 1 appl topical BID 4 weeks diclofenac sodium 1% (Voltaren Arthritis Pain) 4 grams topical QID PRN diphenhydramine HCl (Benadryl) 25 mg orally; Take 1 tablet the morning of day Before CT scan, Take 1 tablet the evening Before the CT scan, Take 1 tablet the DAY of the CT scan ( 2 hours prior) epinephrine (EpiPen 2-Dread) 0.3 mg (0.3 mL) IM Q4H PRN famotidine 40 mg PO BEDTIME fluticasone propionate 50 mcg/actuation (Flonase Allergy Relief) 2 sprays intranasal DAILY PRN nhskbnghrwj-edxqsvcwy-egmjxdrd 200-62.5-25 mcg (Trelegy Ellipta) 1 inh inhalation DAILY 30 days hydralazine 50 mg PO TID 90 days hydrochlorothiazide 25 mg PO DAILY ipratropium-albuterol 0.5 mg-3 mg(2.5 mg base)/3 mL 3 mL inhalation Q6H PRN latanoprost 0.005% 1 drp ophthalmic (eye) DAILY lorazepam 1 to 2 tablets orally twice a day as needed; PRN; 30 days melatonin 5 mg PO BEDTIME PRN metoprolol succinate ER 50 mg PO DAILY montelukast 10 mg PO QPM olmesartan 40 mg PO DAILY omeprazole 40 mg PO DAILY prednisone 20 mg orally; Take 1 tablet the morning of day Before CT scan, Take 1 tablet the evening Before the CT scan, Take 1 tablet the DAY of the CT scan ( 2 hours prior) prednisone 10 mg PO DIRECTED 8 days tamsulosin 0.4 mg PO DAILY 90 days tirzepatide (Mounjaro) 2.5 mg (0.5 mL) subcut QWEEK zolpidem 10 mg PO BEDTIME PRN 30 days Tobacco use date assessed: 10/11/24 Dental Screening Dental Screen Date: 10/11/24 Did you have a dental visit in the last 12 months?: No Did you have a dental problem in the last 6 months where you did not have access to dental care?: No Was dental information given to patient?: Patient has dentist HPI abd pain HPI Details Patient comes in today for his follow up visit Patient went to the ER earlier this morning complaining of mild chest tightness, shortness of breath and some sensation of wheezing as well as epigastric pain although on the ER visit report, it appears that only his respiratory symptoms were addressed Patient states that he did mentioned that his stomach was bothering him as well but it does not appear that this was even mentioned in the ER visit sheet He had some labs done at the ER earlier today which mostly unrevealing He was treated in the ER for his respiratory symptoms and once his issues are resolved, he was discharged back home with instructions to follow up with his PCP Patient is currently pointing to his epigastric area and right upper abdominal area as the main sources of his GI complaints States that his stomach has been bothering him for a few days now and he does not feel that his abdominal pain is affected by food or oral intake He has omeprazole listed in his medication list and states that he has been taking this every day He denies any associated nausea or vomiting with his abdominal pain and states that he has had no problems with bowel movements lately Adds that he also would like to get a prescription for a walking cane and compression stockings sent over to [facility] He also needs his albuterol inhaler Rx refilled [facility] Medical History Dyspnea Standard chest x-ray abnormal Diabetes mellitus RBBB (right bundle branch block) Laryngospasm Chronic bronchitis Supplemental oxygen dependent Onychomycosis Hx of fracture of fibula GERD without esophagitis Asthma-COPD overlap syndrome Diastasis recti JOSÉ (obstructive sleep apnea) Bursitis Low back pain Claustrophobia Hemoptysis Anxiety Insomnia Migraine Pure hypercholesterolemia Benign essential hypertension Type 2 diabetes mellitus with hyperglycemia, without long-term current use of insulin Stasis edema of both lower extremities Lumbar degenerative disc disease Obesity (BMI 30-39.9) Chronic rhinitis Hiatal hernia Erectile dysfunction Surgical History History of bronchoscopy History of endoscopy Hx of colonoscopy Hx of cardiac catheterization History of nasal surgery History of carpal tunnel surgery Family History Father No problems noted. 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 1. Little interest or pleasure in doing things: not at all 2. Feeling down, depressed, or hopeless: not at all 3. Trouble falling or staying asleep, or sleeping too much: more than half the days 4. Feeling tired or having little energy: several days 5. Poor appetite or overeating: not at all 6. Feeling bad about yourself - or that you are a failure or have let yourself or your family down: not at all 7. Trouble concentrating on things, such as reading the newspaper or watching television: more than half the days 8. Moving or speaking so slowly that other people could have noticed. Or the opposite - being so fidgety or restless that you have been moving around a lot more than usual: not at all 9. Thoughts that you would be better off or of hurting yourself in some way: not at all Total score: 5 Depression Screening Interpretation: Positive Depression Screening Follow-up: Follow-up Visit Requested Depression Screening Done: Yes 54702 - PHQ-9 Billing: Yes Source: Developed by Drs. Oneal Rosenberg, Janelle Blum, Larry Martin and colleagues, with an educational pete from [employer]. Thrive Questionnaire Date Thrive assessed: 10/11/24 I am a: Patient What is your living situation today?: I have a steady place to live Within the past 12 months, did the food you bought not last and you didn't have the money to get more?: I choose not to answer this question Within the past 12 months, did you worry whether your food would run out before you got money to buy more?: I choose not to answer this question Do you have trouble paying for medicines?: I choose not to answer this question Do you have trouble getting transportation to medical appointments?: I choose not to answer this question Do you have trouble paying your heating and electricity bill?: I choose not to answer this question Do you have trouble taking care of your child, family member or friend?: I choose not to answer this question Do you have trouble with day-to-day activities such as bathing, preparing meals, shopping, managing finances, etc.?: I choose not to answer this question Are you currently unemployed and looking for a job?: I choose not to answer this question Are you interested in more education?: I choose not to answer this question Please select the resources that you would like help with: None Currently or been in a relationship where the following occur: No concerns reported THRIVE Score: 0 AUDIT C Alcohol Use Questionnaire (AUDIT-C) 1. How often do you have a drink containing alcohol?: Never 3. How often do you have six or more drinks on one occasion?: Never Total Score: 0 Score Reviewed/Action Taken: Yes MALLORIE-7 AMB Questionnaire MALLORIE-7 Date MALLORIE - 7 assessed: 10/11/24 Feeling nervous, anxious, or on edge: 0 = Not at all Not being able to stop or control worryin = Not at all Worrying too much about different things: 0 = Not at all Trouble relaxin = Several days Being so restless that it is hard to sit still: 0 = Not at all Becoming easily annoyed or irritable: 0 = Not at all Feeling afraid as if something awful might happen: 0 = Not at all Total MALLORIE-7 score (0-4 normal; 5-9 mild; 10-14 moderate; 15-21 severe): 1 Source: Developed by Drs. Oneal Rosenberg, Janelle Blum, Larry Martin and colleagues, with an educational pete from [employer]. Review of Systems Const Denies chills, Denies fatigue, Denies fever(s) and Denies headache(s) ENT Denies dysphagia (resolved with EGD and dilatation in February 2024), Denies dizziness, Denies otalgia, Denies headache(s), Denies neck pain, Denies odynophagia and Denies sore throat Card Denies chest pain, Denies irregular heart rhythm, Denies palpitations and Denies dyspnea Resp Denies chest congestion, Denies cough, Denies dyspnea and Denies wheezing GI Reports abdominal pain (mainly over the right upper abdomen and epigastric areas), Denies constipation, Denies dysphagia (resolved with EGD and dilatation in February 2024), Denies heartburn, Denies diarrhea, Denies nausea, Denies odynophagia and Denies vomiting Denies difficulty urinating, Denies dysuria and Denies urinary frequency Musc Reports back pain (chronic - over the lower back), Reports arthralgias (right shoulder), Denies neck pain and Reports tingling (on and off, in both hands and feet) Skin/Breast Denies rash Neuro Denies dizziness, Denies headache(s) and Reports tingling (on and off, in both hands and feet) Psych Reports anxiety Endo Denies fatigue and Denies palpitations Aller/Immun Denies wheezing Physical exam (Primary Care) Vital Signs: Last Vital Signs Temp 97.3 F 10/11/24 16:06 BP 130/76 10/11/24 16:06 Pulse Ox 97 10/11/24 16:06 Oxygen Delivery Method Room Air 10/11/24 16:06 BMI result Body Mass Index 34.1 Tobacco/Smoking Status: Tobacco use Status Tobacco use date assessed 10/11/24 10/11/24 16:17 Patient Tobacco Use Status Never used Tobacco 10/11/24 16:17 e-Cigarette/Vaping Use Never Used 10/11/24 16:17 Depression Screening Interpretation: Positive Depression Screening Follow-up: Follow-up Visit Requested Thrive Assessment: Date of Thrive Assessment Date Thrive assessed 10/11/24 10/11/24 16:17 Currently or been in a relationship where the following occur: No concerns reported Const General: no acute distress and alert HENMT Ears: TM's normal bilaterally and EAC's normal Throat: Yes posterior oropharynx normal and Yes tonsils normal (no TP congestion) Neck Neck: Yes supple and No lymphadenopathy Thyroid: Thyroid normal Resp Auscultation: clear to auscultation bilaterally, no rales and no wheezes Cardio Rate: regular rate Rhythm: regular rhythm Heart sounds: no murmurs GI Palpation (GI): Soft to palpation, Tenderness to palpation present (GI) (mild) in the epigastrum and in the RUQ, no guarding and No Rebound tenderness present Auscultation: normal bowel sounds General: Yes no CVA tenderness Back/Spine/Pelvis Back: no CVA tenderness Thoracic/Lumbar Spine: lumbar spinal tenderness Skin Rashes: no rashes Extrem General: Yes no clubbing, cyanosis or edema Right upper extremity: shoulder/upper arm Details: tenderness Location: of the A-C joint Coding Level of Care Code Est Pt Level 4 (96934) Diagnoses Epigastric pain R10.13 Abdominal location: epigastric Benign essential hypertension I10 Type 2 diabetes mellitus without complication, with long-term current use of insulin E11.9; Z79.4 Diabetes mellitus type: type 2 Diabetes mellitus longwall foreman insulin use: with longwall foreman use Diabetes mellitus complication status: without complication Pure hypercholesterolemia E78.00 Dysphagia, unspecified type R13.10 Dysphagia type: unspecified Asthma-COPD overlap syndrome J44.9 Migraine without status migrainosus, not intractable, unspecified migraine type G43.909 Migraine type: unspecified Status migrainosus presence: without status migrainosus Intractability: not intractable Degeneration of intervertebral disc of lumbar region with discogenic back pain M51.360 Disc-related pain type: discogenic back pain only Erectile dysfunction, unspecified erectile dysfunction type N52.9 Erectile dysfunction type: unspecified Insomnia, unspecified type G47.00 Insomnia type: unspecified Anxiety F41.9 Episode of recurrent major depressive disorder, unspecified depression episode severity F33.9 Active/Remission status: currently active Major depression episode severity: unspecified Obesity (BMI 30-39.9) E66.9 Additional Codes PHQ-9 - 29417 - PHQ-9 Billing: Yes ([id number]) Assessment & Plan Assessment & Plan (1) Abdominal pain: Code(s): R10.9 - Unspecified abdominal pain Category: Medical Qualifiers: Abdominal location: epigastric Qualified Code(s): R10.13 - Epigastric pain Plan: (+) Hx of GERD and dysphagia requiring esophageal dilatation in the past Suspect gastritis but as he is currently on multiple meds, including Mounjaro (was also on Jardiance recently, which he states bothered his stomach), will need to evaluate him for pancreatic etiologies as well Will send patient for some labs NIDIA for further evaluation Will have him increase his Famotidine for now to 40 mg BID Continue Omeprazole 40 mg QD Follow up with GI as scheduled (2) Benign essential hypertension: Code(s): I10 - Essential (primary) hypertension Category: Medical Plan: Reinforced low sodium diet - goal is systolic BP of 120 mm or less Continue Olmesartan 40 mg QD, Amlodipine 10 mg QD, HCTZ 25 mg QD and Hydralazine 50 mg TID He was taken off Metoprolol ER 50 mg BID due to his asthma Patient was also experiencing on and off chest pains when he was taking Hydralazine 100 mg TID but appears to be tolerating the 50 mg dose without any issues He is again reminded to continue monitoring his blood pressure regularly (3) Diabetes mellitus: Code(s): E11.9 - Type 2 diabetes mellitus without complications Category: Medical Qualifiers: Diabetes mellitus type: type 2 Diabetes mellitus longwall foreman insulin use: with longwall foreman use Diabetes mellitus complication status: without complication Qualified Code(s): E11.9 - Type 2 diabetes mellitus without complications; Z79.4 - snf (current) use of insulin Plan: His in-office HgbA1c was most recently at 6.2% at endocrinology back on 08/05/2024 - goal is < 7.0% Reinforced diabetic diet Mounjaro 2.5 mg SQ once a week His Lantus was stopped by endocrinology earlier this year as he was not really taking it regularly due to normal blood sugar readings; Glipizide was discontinued by endocrinology last year as well Follow up with [facility] Endocrinology as scheduled (4) Pure hypercholesterolemia: Code(s): E78.00 - Pure hypercholesterolemia, unspecified Category: Medical Plan: Patient used to take Atorvastatin 80 mg QD and Ezetimibe 10 mg QD but appears to have stopped taking these on his own some tiime ago - he himself is not sure exactly when he stopped taking these meds or why he stopped them His cholesterol levels appear to be acceptable when last checked in May 2023 (LDL was at 91 mg/dl) so we held off on starting him back on cholesterol meds at his last visit Will have him recheck his labs and fasting lipids in 4 months for follow-up (5) Dysphagia: Comment: Dysphagia to solids Code(s): R13.10 - Dysphagia, unspecified Category: Medical Qualifiers: Dysphagia type: unspecified Qualified Code(s): R13.10 - Dysphagia, unspecified Plan: Patient states that his symptoms have resolved following his EGD with dilatation by Dr. Bowens back in February 2024 Follow up with GI as scheduled (6) Asthma-COPD overlap syndrome: Code(s): J44.9 - Chronic obstructive pulmonary disease, unspecified Category: Medical Plan: Continue Trelegy Ellipta 200-62.5-25 mcg 1 inhalation QD, Montelukast 10 mg Q PM and Albuterol HFA 2 inhalations every 6 hours as needed Daliresp was discontinued by pulmonary He is being considered for injection therapy with the newer biologics Follow up with [facility] Pulmonary as scheduled (7) Migraine: Code(s): G43.909 - Migraine, unspecified, not intractable, without status migrainosus Category: Medical Qualifiers: Migraine type: unspecified Status migrainosus presence: without status migrainosus Intractability: not intractable Qualified Code(s): G43.909 - Migraine, unspecified, not intractable, without status migrainosus Plan: Stable lately He was tried on Topiramate 25 mg Q HS for headache prophylaxis a few years ago but appears to have self-discontinued this shortly afterwards - he does not recall at present whether it helped him back then or not (8) Lumbar degenerative disc disease: Code(s): M51.36 - Other intervertebral disc degeneration, lumbar region Category: Medical Qualifiers: Disc-related pain type: discogenic back pain only Qualified Code(s): M51.360 - Other intervertebral disc degeneration, lumbar region with discogenic back pain only Plan: Reinforced activity and weight-lifting restrictions Continue Gabapentin 400 mg 1 capsule in AM, 1 capsule in PM and 2 capsules at bedtime He has been referred to [facility] Pain Management for further recommendations and management plan for his chronic low back pain in the past but it does not look like he was ever seen - will refer him again to pain management if needed but patient asked to put this off for now (9) Erectile dysfunction: Code(s): N52.9 - Male erectile dysfunction, unspecified Category: Medical Qualifiers: Erectile dysfunction type: unspecified Qualified Code(s): N52.9 - Male erectile dysfunction, unspecified Plan: Continue Sildenafil 50 mg PRN Follow up with urology as scheduled (10) Insomnia: Code(s): G47.00 - Insomnia, unspecified Category: Medical Qualifiers: Insomnia type: unspecified Qualified Code(s): G47.00 - Insomnia, unspecified Plan: Sleep hygiene reinforced Continue Zolpidem 10 mg Q HS PRN; also takes Melatonin 10 mg Q HS PRN He was tried previously on Lunesta but states that he cannot stand its aftertaste (11) Anxiety: Code(s): F41.9 - Anxiety disorder, unspecified Category: Medical Plan: Continue Lorazepam 0.5 mg 1 to 2 tablets BID PRN (12) Major depressive disorder, recurrent: Code(s): F33.9 - Major depressive disorder, recurrent, unspecified Category: Medical Qualifiers: Active/Remission status: currently active Major depression episode severity: unspecified Qualified Code(s): F33.9 - Major depressive disorder, recurrent, unspecified Plan: He was on Sertraline 50 mg QD in the past but stopped taking it at some point - is not sure when or why but states that he feels okay without Rx for now Follow up with psychiatry as scheduled (13) Obesity (BMI 30-39.9): Code(s): E66.9 - Obesity, unspecified Category: Medical Plan: Reinforced diet/exercise as tolerated/lose weight Plan Follow up in 4 months Orders: Orders Complete Blood Count Auto Diff 10/11/24 D64.9 - Anemia, unspecified, R10.9 - Unspecified abdominal pain Lipid Panel 4 Months E78.00 - Pure hypercholesterolemia, unspecified Lipase 10/11/24 R10.9 - Unspecified abdominal pain Erythrocyte Sedimentation Rate 10/11/24 R10.9 - Unspecified abdominal pain C Reactive Protein 10/11/24 R10.9 - Unspecified abdominal pain Comprehensive Met. Panel 10/11/24 R10.9 - Unspecified abdominal pain Complete Blood Count Auto Diff 4 Months D64.9 - Anemia, unspecified Comprehensive [place]. Panel Fast 4 Months E78.00 - Pure hypercholesterolemia, unspecified Medications: New famotidine 40 mg PO BID PRN 60 tabs 0RF abdominal pain [CANE] As directed 1 ea 0RF M43.16 - Spondylolisthesis, lumbar region, M51.360 - Other intervertebral disc degeneration, lumbar region with discogenic back pain only, R20.2 - Paresthesia of skin Refilled albuterol sulfate 90 mcg/actuation (Ventolin HFA) 2 puffs PO QID PRN 3 multiple units 3RF shortness of breath or wheezing 90 days J45.901 - Unspecified asthma with (acute) exacerbation [COMPRESSION STOCKINGS (medium compression - 20 to 30 mm); Knee high] As directed 3 ea 11RF I87.303 - Chronic venous hypertension (idiopathic) without complications of bilateral lower extremity
[2024-10-11 16:06] VITALS: BP 130/76; TEMP 36.3; O2SAT 97; BMI 34.1
== END 2024-10-11 17:05 | disposition home or self-care (01) ==
LOC: HO.HMCH 15:49
PROVIDERS: PCP Internal Medicine; Visit Provider Internal Medicine
DX: R10.13 Epigastric pain (principal); E11.9 Type 2 diabetes mellitus without complications; Z79.4 Long term (current) use of insulin; J44.9 Chronic obstructive pulmonary disease, unspecified; I10 Essential (primary) hypertension; E78.00 Pure hypercholesterolemia, unspecified; R13.10 Dysphagia, unspecified; G43.909 Migraine, unspecified, not intractable, without status migrainosus; M51.360 Other intervertebral disc degeneration, lumbar region with discogenic back pain only; N52.9 Male erectile dysfunction, unspecified; G47.00 Insomnia, unspecified; F41.9 Anxiety disorder, unspecified

== ENCOUNTER 2024-10-14 10:22 | Outpatient (REF) | payer OTHER, SELFPAY ==
--- OUTSIDE RECORDS SUMMARY | 2024-10-14 11:30 | XMS_ITS | Clinical Summary ---
Author Organization [address] [facility] Address [address] [place] [address] Phone Care Team Providers Care Surgery Consultant Name Role Phone Oliverio Emerson MD Primary [...] 09/03/2024 10:45 AM EDT Consult Orthopedic Surgery [place] [address] [phone] Mike Velasquez DPM Controlled type 2 diabetes [...] Visit Orthopedic Surgery [facility] [address] [phone] Mike Velasquez DPM [address] [address] Health Maintenance Due Date Last Done Comments [...] to complete this topic Insurance MEDICAID - [place] [employer] MEDICARE Member Subscriber Plan / Payer (Ef fective 2018-Present) Name:KEATON REDDY Relation to Subscriber:Self Name:Keaton Reddy Payer ID:[id number] Group ID:[id number] Type:Not on file Address: [address] [place] [id number] Care Teams Surgery Consultant Relationship Specialty Start Date End Date Oliverio Emerson MD [address] [place] [address] [address] [place], [place] PCP - General 02/21/22
--- OUTSIDE RECORDS SUMMARY | 2024-10-14 11:30 | XMS_ITS | Data Portability ---
Author Organization [facility], [facility] Address [address] [place] [address] Care Team Providers Care Supervisor Personnel Clerks Name Role Phone DENNIS HOLDEN Fuel Testing Technician Unavailable Assessment No assessment recorded. Plan of Treatment Reminders Order Date Submit Date Provider Last Modified By Organization Details Last Modified Time Details Appointments None recorded. Lab None recorded. Referral None recorded. Procedures None recorded. Surgeries None recorded. Imaging None recorded. Medication Orders TobraDex 0.3 %-0.1 % eye drops,susp ension 2017 018 [facility] #[id number], [address] [place], [id number], 8 10:09:33 Xiidra 5 % eye drops in a dropperett e 2016 017 [facility] #[id number], [address] [place], [id number], 7 10:10:00 Patient TargetsNo targets recorded. Patient Instructions Encounter Date Encounter Id Patient Instructions Last Modified By Organization Details Last Modified Time 07/06/2015 [id number] RTC 6 months for HVF 24-2SS with IOP check or per Dr. Collins. jmandile Not available 07/13/2015 13:43:44 07/18/2016 [id number] RX given for glasses Warm compresses, artificial tears, hydration and Whitestone 3 fatty acids (fish oil, flax seed, etc) for dry eye symptoms. Start Xiidra 2x/day. Return 6 weeks or sooner as needed. jmerlin Not available 07/18/2016 10:29:44 12/15/2017 [id number] Tobradex drops four times a day for seven days and it should conitnue to improve. Return with any increase in symptoms including pain, discharge, light sensitivity, or change in vision. jmerlin Not available 12/15/2017 10:12:03 Reason for Referral None Reported. Procedures Surgical History Date Name Laterality Status Provider Name and Address Organization Details Recorded Time 07/19/19 17 Refraction completed [facility] 07/18/2016 09:44:19 07/06/19 16 Fundus Photography completed Dennis Holden, [address], [address], [facility] 07/09/2015 09:03:40 07/06/19 16 Refraction completed [facility] 07/06/2015 15:33:28 Imaging Results None recorded. Procedure Notes None recorded. Medical Equipment None Reported. Allergies Allergen ID Allergen Name Allergen Category Reaction Reaction Severity Criticality Documentation Date Start Date Code Code System Note Provider Name and Address Organization Details Recorded Time 458380 iodine medicatio n Not available Not available Not available 07/06/2015 5933 RxNorm [facility] 6 15:18:45 425284 Demerol medicatio n Not available Not available Not available 07/06/2015 31976 1 RxNorm [facility] 6 15:18:45 082332 acetamino phen / oxycodone medicatio n Not available Not available Not available 07/06/2015 70933 3 RxNorm [facility] 6 15:18:45 335287 shellfish derived food,medi cation Not available Not available Not available 07/06/2015 16367 UNK [facility] 15:18:45 Medications Name Sig Start [...] SNOMED-CT Code Diagnosis ICD10 Code Diagnosis Note [id number] Dennis Mari Holden, [facility] [address] [address] 07/06/2015 14:58:29 07/06/2015 16:23:42 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 refer to ophthalmol ogkyle. scheduled to see Dr. Collins for OCT, exam and VF on August. Dry eyes 260560353 H04.1 29 rec AT [facility] Retinal tear 61136327 H3 3.309 well sealed tear with laser temp OD. reviewed syp of rd, rtc if occur. Presbyopia 56354192 H52. 4 [id number] Cody Arshad, OD [facility], [address] [address] 07/18/2016 08:57:54 07/18/2016 10:20:43 Myopia 83216603 H52.13 Presbyopia 12851684 H52. 4 Dry eyes 456097858 H04.1 29 Not relieved with constant use of ATs, warm compresses Retinal tear 36969509 H3 3.301 well sealed [id number] Cody Arshad, OD [facility], [address] [address] 12/15/2017 09:17:25 12/15/2017 10:11:50 Acute atopic conjunctivitis 75999499 H10.11 Secondary to probable foreign body (no FB seen) Health Concerns Section Related Observation LastModified by Organization Detai ls LastModified Time None Recorded Concern Status LastModified by Organization Details LastModified Time None Recorded Advance Directives Directive None Recorded Payers Insurance Date Sequence Insurance Name Policy Number Policy Reyna Covered Member ID Reyna Member ID Guarantor Name 05/09/2018 1 [place] B[place] [employer] Keaton Cullen [id number] Keaton Cullen 05/09/2018 2 [place] [facility] Keaton Cullen [id number] Keaton Cullen
--- OUTSIDE RECORDS SUMMARY | 2024-10-14 11:30 | XMS_ITS | Clinical Summary ---
Author Organization [facility] Address [address] [place] [address] Phone Care Team Providers Care Scrap Drop Engineer Name Role Phone Oliverio Emerson MD Primary Care Provider [phone] Allergies Active Allergy Reactions Criticality Noted Date [...] Payer (Ef fective 1992-Present) Name:Cullen Keaton Member ID:[id number] Relation to Subscriber:Self Name:Keaton Cullen Subscriber ID:[id number] Payer ID:[id number] Group ID:Not on file Type:Medicare Address: [facility] [employer] [facility] [address] [address] [facility] ONE CARE MEDICARE REPLACEMENT [place] [id number] MEDICARE PART A & B Member Subscriber Plan / Payer (Ef fective 1992-Present) Name:Subhash Keaton Member ID:[id number] Relation to Subscriber:Self Name:Keaton Cullen Subscriber ID:[id number] Payer ID:[id number] Group ID:Not on file Type:Medicare Address: [employer] [address] ONE CARE MEDICARE REPLACEMENT MEDICARE PART A & B CARE MEDICARE REPLACEMENT MEDICARE PART A & B ONE CARE MEDICARE REPLACEMENT [place] [facility] MEDICARE PART A & B CARE MEDICARE REPLACEMENT MEDICARE PART A & B ONE CARE MEDICARE REPLACEMENT MEDICARE PART A & B [id number] [place] [address] ONE CARE MEDICARE REPLACEMENT MEDICARE PART A & B CARE MEDICARE REPLACEMENT [place] [id number] MEDICARE PART A & B ONE CARE MEDICARE REPLACEMENT Care Teams Scrap Drop Engineer Relationship Specialty Start Date End Date Oliverio Emerson MD [address] [place] [address] [place] [address] PCP - General Internal Medicine 11/15/21 Additional Source Comments The information contained in this document represents components of the legal health record. It is not the complete legal health record.[facility]
[2024-10-14 13:12] LABS: MANUAL DIFF FLAG NO
[2024-10-14 13:28] LABS: Hematocrit 45.3 % (42.0-52.0); Hemoglobin 15.2 g/dl (14.0-18.0); Imm Gran Abs Auto 0.02 X10*3/uL (0.00-0.03); Imm Gran Pct Auto 0.3 % (0.0-0.4); Lymphocytes Absolute Auto 1.9 X10*3/uL (1.2-4.9); Mean Corpuscular HGB Conc 33.6 g/dl (31.0-36.0); Mean Corpuscular Hemoglobin 29.8 pg (27.0-33.0); Mean Corpuscular Volume 88.8 fL (80.0-98.0); NRBC Abs Auto 0.000 X10*3/uL (0.0-0.012); NRBC Pct Auto 0.0 /100WBC (0.0-0.2); Platelet Count 261 X10*3/uL (160-400); Red Blood Count 5.10 X10*6/uL (4.60-5.80); White Blood Count 6.1 X10*3/uL (4.8-10.8)
[2024-10-14 13:57] LABS: Alanine Aminotransferase 30 U/L (0-40); Albumin Level 4.1 g/dL (3.5-5.0); Alkaline Phosphatase 63 U/L (39-117); Anion Gap 12 (12-20); Aspartate Amino Transferase 21 U/L (5-37); Blood Urea Nitrogen 10 mg/dL (9-16); Calcium 8.9 mg/dL (8.4-10.2); Carbon Dioxide 30 mmol/L (22-29); Chloride 104 mmol/L (96-108); Estimated Glomerular Filt Rate > 60; Lipase 27 U/L (8-78); Potassium 4.2 mmol/L (3.3-5.1); Sodium 142 mmol/L (135-145); Total Protein 6.6 g/dL (6.5-8.0)
== END 2024-10-14 10:23 | disposition home or self-care (01) ==
LOC: HO.10HDL 10:22
PROVIDERS: Visit Provider Internal Medicine
DX: R10.9 Unspecified abdominal pain (principal); D64.9 Anemia, unspecified
CPT/HCPCS: 36415; 80053; 83690; 85025; 85652; 86140

== ENCOUNTER 2024-10-16 11:01 | Outpatient (REF) | payer OTHER, SELFPAY ==
--- NOTE | ~2024-10-16 | XR_ITS ---
EXAMINATION: XR SHOULDER, RIGHT CLINICAL INFORMATION: M25.511 - Pain in right shoulder COMPARISON: September 20, 2023. TECHNIQUE: AP external rotation, Grashey, scapular Y, and axillary views of the right shoulder. FINDINGS: Osteophyte formation, sclerosis along the articular surface and subchondral cyst formation at the glenohumeral joint. Mild sclerosis at the acromioclavicular joint. Well-corticated calcifications seen on the axial projection. XR/XR shoulder RT min 2V IMPRESSION: Moderate to severe osteoarthritis/osteoarthrosis, glenohumeral joint. Probable calcific tendinosis/tendinopathy, supraspinatus. Electronically signed by: Frank Michelle MD 10/16/2024 11:43 AM EDT
--- OUTSIDE RECORDS SUMMARY | 2024-10-16 12:07 | XMS_ITS | Clinical Summary ---
Author Organization [facility] Address [address] [place] [address] Phone Care Team Providers Care Wallpaper Consultant Name Role Phone Oliverio Emerson MD Primary Care Provider [phone] Allergies Active Allergy Reactions Criticality Noted Date [...] Payer (Ef fective 1992-Present) Name:Cullen Keaton Member ID:[id number] Relation to Subscriber:Self Name:Keaton Cullen Subscriber ID:[id number] Payer ID:[id number] Group ID:Not on file Type:Medicare Address: [facility] [employer] [facility] [address] [address] [facility] ONE CARE MEDICARE REPLACEMENT [place] [id number] MEDICARE PART A & B Member Subscriber Plan / Payer (Ef fective 1992-Present) Name:Subhash Keaton Member ID:[id number] Relation to Subscriber:Self Name:Keaton Cullen Subscriber ID:[id number] Payer ID:[id number] Group ID:Not on file Type:Medicare Address: [employer] [address] ONE CARE MEDICARE REPLACEMENT MEDICARE PART A & B CARE MEDICARE REPLACEMENT MEDICARE PART A & B ONE CARE MEDICARE REPLACEMENT [place] [facility] MEDICARE PART A & B CARE MEDICARE REPLACEMENT MEDICARE PART A & B ONE CARE MEDICARE REPLACEMENT MEDICARE PART A & B [id number] [place] [address] ONE CARE MEDICARE REPLACEMENT MEDICARE PART A & B CARE MEDICARE REPLACEMENT [place] [id number] MEDICARE PART A & B ONE CARE MEDICARE REPLACEMENT Care Teams Wallpaper Consultant Relationship Specialty Start Date End Date Oliverio Emerson MD [address] [place] [address] [place] [address] PCP - General Internal Medicine 11/15/21 Additional Source Comments The information contained in this document represents components of the legal health record. It is not the complete legal health record.[facility]
--- OUTSIDE RECORDS SUMMARY | 2024-10-16 12:07 | XMS_ITS | Clinical Summary ---
Author Organization [address] [facility] Address [address] [place] [address] Phone Care Team Providers Care Binder Selector Name Role Phone Oliverio Emerson MD Primary [...] 09/03/2024 10:45 AM EDT Consult Orthopedic Surgery [place] [address] [address] Mike Velasquez DPM Controlled type 2 diabetes [...] 10:00 AM EDT Office Visit Orthopedic Surgery [facility] [address] [address] Mike Velasquez DPM [address] [address] Health Maintenance Due Date Last Done Comments [...] to complete this topic Insurance MEDICAID - [place] [facility] MEDICARE Member Subscriber Plan / Payer (Ef fective 2018-Present) Name:KEATON REDDY Relation to Subscriber:Self Name:Keaton Reddy Payer ID:[id number] Group ID:[id number] Type:Not on file Address: [address] [place] [address] Care Teams Binder Selector Relationship Specialty Start Date End Date Oliverio Emerson MD [address] [place] [address] [address] [place], [place] PCP - General 02/21/22
== END 2024-10-16 11:02 | disposition home or self-care (01) ==
LOC: HO.XRAY 11:01
PROVIDERS: PCP Internal Medicine; Visit Provider Internal Medicine
DX: M25.511 Pain in right shoulder (principal)
CPT/HCPCS: 73030

== ENCOUNTER → 2024-10-16 11:05 | Outpatient (BNV) | payer OTHER, SELFPAY | PROVIDERS: PCP Internal Medicine; Visit Provider Radiology Diagnostic Radiology | DX: M19.011 Primary osteoarthritis, right shoulder (principal) | CPT/HCPCS: 73030 ==

== ENCOUNTER 2024-10-19 01:56 | Emergency (ER) | payer OTHER, SELFPAY ==
--- NOTE | 2024-10-19 02:00 | ECG_ITS ---
Test Reason : CP Blood Pressure : */* mmHG Vent. Rate : 73 BPM Atrial Rate : 73 BPM P-R Int : 202 ms QRS Dur : 144 ms QT Int : 420 ms P-R-T Axes : 3 -19 -13 degrees QTcB Int : 462 ms Normal sinus rhythm Right bundle branch block Abnormal ECG When compared with ECG of 11-Oct-2024 03:51, No significant change was found Referred By: Generic ED Physician Electronically Signed By: HUGO CLARKE MD
[2024-10-19 02:09] VITALS: BP 133/62; PULSE 71; RESP 16; TEMP 36.7; O2SAT 97; BMI 35.0
--- OUTSIDE RECORDS SUMMARY | 2024-10-19 02:32 | XMS_ITS | Clinical Summary ---
Author Organization [address] [facility] Address [address] [place] [address] Phone Care Team Providers Care Ammunition Storekeeper Name Role Phone Oliverio Emerson MD Primary [...] 09/03/2024 10:45 AM EDT Consult Orthopedic Surgery [place] [address] [address] Mike Velasquez DPM Controlled type 2 diabetes [...] 10:00 AM EDT Office Visit Orthopedic Surgery [facility] [address] [address] Mike Velasquez DPM [address] [address] Health Maintenance Due Date Last Done Comments [...] to complete this topic Insurance MEDICAID - [place] [facility] MEDICARE Member Subscriber Plan / Payer (Ef fective 2018-Present) Name:KEATON REDDY Relation to Subscriber:Self Name:Keaton Reddy Payer ID:[id number] Group ID:[id number] Type:Not on file Address: [address] [place] [address] Care Teams Ammunition Storekeeper Relationship Specialty Start Date End Date Oliverio Emerson MD [address] [place] [address] [address] [place], [place] PCP - General 02/21/22
[2024-10-19 02:34] LABS: MANUAL DIFF FLAG NO
[2024-10-19 02:35] LABS: Hematocrit 41.4 % (42.0-52.0); Hemoglobin 14.5 g/dl (14.0-18.0); Imm Gran Abs Auto 0.04 X10*3/uL (0.00-0.03); Imm Gran Pct Auto 0.6 % (0.0-0.4); Lymphocytes Absolute Auto 2.1 X10*3/uL (1.2-4.9); Mean Corpuscular HGB Conc 35.0 g/dl (31.0-36.0); Mean Corpuscular Hemoglobin 30.5 pg (27.0-33.0); Mean Corpuscular Volume 87.0 fL (80.0-98.0); NRBC Abs Auto 0.000 X10*3/uL (0.0-0.012); NRBC Pct Auto 0.0 /100WBC (0.0-0.2); Platelet Count 260 X10*3/uL (160-400); Red Blood Count 4.76 X10*6/uL (4.60-5.80); White Blood Count 6.3 X10*3/uL (4.8-10.8)
[2024-10-19 02:50] LABS: Glucose, Whole Blood 137 mg/dL (60-115)
[2024-10-19 02:54] LABS: Troponin-I High Sensitivity 3.7 ng/L (<3.5-35.0)
[2024-10-19 03:05] LABS: Alanine Aminotransferase 31 U/L (0-40); Albumin Level 4.2 g/dL (3.5-5.0); Alkaline Phosphatase 65 U/L (39-117); Anion Gap 12 (12-20); Aspartate Amino Transferase 22 U/L (5-37); Blood Urea Nitrogen 19 mg/dL (9-16); Calcium 8.8 mg/dL (8.4-10.2); Carbon Dioxide 27 mmol/L (22-29); Chloride 104 mmol/L (96-108); Creatinine Clr Calc Pharmacy 84.4; Estimated Glomerular Filt Rate > 60; Lipase 30 U/L (8-78); Magnesium 1.9 mg/dL (1.6-2.6); Potassium 3.9 mmol/L (3.3-5.1); Sodium 139 mmol/L (135-145); Total Protein 6.6 g/dL (6.5-8.0)
[2024-10-19 03:16] VITALS: BP 166/81; PULSE 72; RESP 13; TEMP 36.7; O2SAT 97
--- NOTE | 2024-10-19 03:33 | ED.GENADULT ---
HPI - General Adult General Chief complaint: General Medical Stated complaint: CP + Headache Time Seen by Provider: 10/19/24 02:46 Source: patient Limitations: no limitations History of Present Illness ED Provider: Katie Shah PA-C HPI narrative: 59-year-old male with a history of hypertension, hyperlipidemia, diabetes, asthma, GERD and BPH who presents with the hypoglycemia. Patient states he woke, felt lightheaded, he checked his blood sugar, the reading was 57. Patient drank some orange juice, it bumped up to 77. Associated chest tightness upon waking. Patient states he was recently started on Trulicity, he is supposed to take it weekly in the morning, he took it before bed. He did not use any insulin overnight. Related Data Home Medications ?Medication ?Instructions ?Recorded ?Confirmed aspirin 81 mg tablet,delayed 81 mg PO DAILY 02/18/20 10/11/24 release blood-glucose sensor (FreeStyle #1 ea 04/01/24 10/11/24 Lola 3 Plus Sensor device) metoprolol succinate 50 mg 50 mg PO DAILY 08/19/24 10/11/24 tablet,extended release 24 hr Previous Rx's ?Medication ?Instructions ?Recorded latanoprost 0.005 % eye drops 1 drp ophthalmic (eye) DAILY #7.5 11/24/21 mL epinephrine 0.3 mg/0.3 mL 0.3 mg (0.3 mL) IM Q4H PRN 05/27/22 injection, auto-injector (EpiPen anaphylaxis #2 ea 2-Dread) albuterol sulfate 2.5 mg/3 mL 2.5 mg (3 mL) continuous 12/14/22 (0.083 %) solution for nebulization nebulization QID PRN shortness of breath or wheezing 30 days #480 mL lorazepam 0.5 mg tablet See Rx Instructions .Route 05/23/23 .COMPLEX PRN anxiety 30 days #60 tabs tamsulosin 0.4 mg capsule 0.4 mg PO DAILY 90 days #90 caps 06/21/23 ipratropium 0.5 mg-albuterol 3 mg 3 ml inhalation Q6H PRN shortness 11/16/23 (2.5 mg base)/3 mL nebulization of breath or wheezing #180 mL soln melatonin 5 mg tablet 5 mg PO BEDTIME PRN sleep #30 tabs 01/24/24 omeprazole 40 mg capsule,delayed 40 mg PO DAILY #30 caps 04/09/24 release fluticasone propionate 50 2 spray intranasal DAILY PRN nasal 05/01/24 mcg/actuation nasal congestion #16 grams spray,suspension (Flonase Allergy Relief) zolpidem 10 mg tablet 10 mg PO BEDTIME PRN insomnia 30 05/01/24 days #30 tabs amlodipine 5 mg tablet 5 mg PO DAILY #90 tabs 06/21/24 clotrimazole 1 % topical cream 1 appl topical BID 4 weeks #45 07/19/24 grams prednisone 10 mg tablet 10 mg PO DIRECTED 8 days #20 07/30/24 tabs diclofenac sodium 1 % topical gel 4 g topical QID PRN pain #100 grams 08/05/24 (Voltaren Arthritis Pain) diphenhydramine HCl 25 mg capsule 25 mg PO .COMPLEX allergy 08/20/24 (Benadryl) prophylaxis #3 caps prednisone 20 mg tablet 20 mg PO .COMPLEX #3 tabs 08/20/24 hydrochlorothiazide 25 mg tablet 25 mg PO DAILY #90 tabs 08/28/24 olmesartan 40 mg tablet 40 mg PO DAILY #90 tabs 08/28/24 azithromycin 250 mg tablet 250 mg PO 3XW 28 days #12 tabs 09/13/24 budesonide 0.5 mg/2 mL suspension 0.5 mg (2 mL) inhalation BID 30 09/24/24 for nebulization days #120 mL famotidine 40 mg tablet 40 mg PO BEDTIME #30 tabs 09/24/24 fluticasone fur. 200 mcg-umeclid 1 inh inhalation DAILY 30 days #60 09/24/24 62.5 mcg-vilant 25 mcg ea inhalat.powder (Trelegy Ellipta) hydralazine 50 mg tablet 50 mg PO TID 90 days #270 tabs 09/25/24 tirzepatide 2.5 mg/0.5 mL 2.5 mg (0.5 mL) subcut QWEEK #2 mL 10/09/24 subcutaneous pen injector (Michelle) CANE #1 ea 10/11/24 COMPRESSION STOCKINGS (medium #3 ea 10/11/24 compression - 20 to 30 mm); Knee high albuterol sulfate 90 mcg/actuation 2 puff PO QID PRN shortness of 10/11/24 aerosol inhaler (Ventolin HFA) breath or wheezing 90 days #3 multiple units famotidine 40 mg tablet 40 mg PO BID PRN abdominal pain 10/11/24 #60 tabs blood sugar diagnostic (FreeStyle #100 strips 10/17/24 Lite Strips) cholecalciferol (vitamin D3) 25 25 mcg PO DAILY #30 caps 10/17/24 mcg (1,000 unit) capsule (Vitamin D3) montelukast 10 mg tablet 10 mg PO QPM #90 tabs 10/17/24 Allergies Allergy/AdvReac Type Severity Reaction Status Date / Time iodine (Iodine) Allergy Severe Anaphylaxis Verified 10/19/24 02:12 lisinopril Allergy Severe Rash Verified 10/19/24 02:12 metformin Allergy Severe diarrhea Verified 10/19/24 02:12 shellfish derived Allergy Severe Anaphylaxis Verified 10/19/24 02:12 meperidine (From Demerol) Allergy Mild RASH Verified 10/19/24 02:12 oxycodone (From Percocet) AdvReac Mild MOUTH Verified 10/19/24 02:12 DRYNESS,RASH Mercury Detox Allergy Severe Throat Uncoded 10/19/24 02:12 closing (charcoal) Review of Systems Review of Systems: Yes all other systems are reviewed and are negative Constitutional: Constitutional: Denies fatigue, Denies fever(s) and Denies headache(s) ENT: Reports dizziness and Denies headache(s) Cardiovascular: Cardiovascular: Reports chest pain and Denies dyspnea Respiratory: Respiratory: Denies dyspnea Gastrointestinal: Gastrointestinal: Denies abdominal pain, Denies nausea and Denies vomiting Neurologic: Reports dizziness and Denies headache(s) Endocrine: Endocrine: Denies fatigue [facility] Past Medical History Attestation statement: The following information was validated with the patient. Medical History Dyspnea Standard chest x-ray abnormal Diabetes mellitus RBBB (right bundle branch block) Laryngospasm Chronic bronchitis Supplemental oxygen dependent Onychomycosis Hx of fracture of fibula GERD without esophagitis Asthma-COPD overlap syndrome Diastasis recti JOSÉ (obstructive sleep apnea) Bursitis Low back pain Claustrophobia Hemoptysis Anxiety Insomnia Migraine Pure hypercholesterolemia Benign essential hypertension Type 2 diabetes mellitus with hyperglycemia, without long-term current use of insulin Stasis edema of both lower extremities Lumbar degenerative disc disease Obesity (BMI 30-39.9) Chronic rhinitis Hiatal hernia Erectile dysfunction Surgical History History of bronchoscopy History of endoscopy Hx of colonoscopy Hx of cardiac catheterization History of nasal surgery History of carpal tunnel surgery Family History Family History Father No problems noted. 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) Alcohol intake: never Patient Tobacco Use Status: Never used Tobacco Smoked in Last 30 Days: No e-Cigarette/Vaping Use: Never Used Second Hand Smoke Exposure: Yes (employees smoked atwork) Use of substances other than those prescribed or required for medical reasons: No Advance Directives: No Advance Directives Information Provided: No Do you have a plan to hurt others: No Plan service: No Current occupational status: disabled Cognitive needs: No Hearing needs: No Vision needs: No Physical Exam ED Vital Signs: Vital Signs - 24 hr 10/19/24 02:09 10/19/24 03:16 Temperature 98.1 F 98.1 F Pulse Rate 71 72 Respiratory Rate 16 13 Blood Pressure 133/62 166/81 H Pulse Oximetry 97 97 Oxygen Delivery Method Room Air Room Air BMI result Body Mass Index 35.0 Const Other: Alert well-appearing Orientation/consciousness: patient oriented x3 Resp Effort & Inspection: normal respiratory effort Cardio Other: Normal peripheral perfusion Skin Other: Warm dry no rash Neuro General: patient oriented x3, gait normal, no focal motor deficits and CN's II-XI intact bilaterally Psych Other: Cooperative Medical Decision Making Medical Decision Making MDM Narrative: 59-year-old male with a history of hypertension, hyperlipidemia, diabetes, asthma, GERD and BPH who presents with the hypoglycemia. Patient states he woke, felt lightheaded, he checked his blood sugar, the reading was 57. Patient drank some orange juice, it bumped up to 77. Associated chest tightness upon waking. Patient states he was recently started on Trulicity, he is supposed to take it weekly in the morning, he took it before bed. He did not use any insulin overnight. Problem: Diabetes, age History: Per patient I have considered the following differential diagnoses: Hypoglycemia from medication reaction, panic attack anxiety, ACS Plan: In regard to the chest pain, I believe this is the patient's anxiety, over being hypoglycemic. I do not believe this is consistent with ACS, however he has risk factors for coronary artery disease, in addition to screening labs, troponin and EKG were obtained. The patient's point of care sugar here is 137, we will see with the chemistry shows. He has returned to his baseline, he is asymptomatic. I have independently reviewed the following tests: Labs: POC 137, no anemia, no leukocytosis, no electrolyte abnormality, blood sugar 149 EKG: Normal sinus rhythm, right bundle again appreciated, no ischemic changes no ectopy, QTC 462 Lab Data 10/19/24 02:26 10/19/24 02:26 Labs: Lab Results 10/19/24 10/19/24 Range/Units 02:20 02:26 WBC 6.3 (4.8-10.8) X10*3/uL RBC 4.76 (4.60-5.80) X10*6/uL Hgb 14.5 (14.0-18.0) g/dl Hct 41.4 L (42.0-52.0) % MCV 87.0 (80.0-98.0) fL MCH 30.5 (27.0-33.0) pg MCHC 35.0 (31.0-36.0) g/dl RDW 12.4 (11.0-16.0) % Plt Count 260 (160-400) X10*3/uL MPV 10.4 (9.4-12.4) fL Immature Gran % (Auto) 0.6 H (0.0-0.4) % Neut % (Auto) 55.2 (45-73) % Lymph % (Auto) 32.6 (20-40) % Lander % (Auto) 8.0 (2-11) % Eos % (Auto) 3.0 (0-4) % Baso % (Auto) 0.6 (0-2) % Lymph # (Auto) 2.1 (1.2-4.9) X10*3/uL Lander # (Auto) 0.5 (0.1-1.2) X10*3/uL Eos # (Auto) 0.2 (0.0-0.4) X10*3/uL Baso # (Auto) 0.0 (0.0-0.2) X10*3/uL Abs Immat Gran (auto) 0.04 H (0.00-0.03) X10*3/uL Absolute Neuts (auto) 3.5 (2.0-8.3) x10*3/uL Absolute Nucleated RBC 0.000 (0.0-0.012) X10*3/uL Nucleated RBC % (auto) 0.0 (0.0-0.2) /100WBC Sodium 139 (135-145) mmol/L Potassium 3.9 (3.3-5.1) mmol/L Chloride 104 (96-108) mmol/L Carbon Dioxide 27 (22-29) mmol/L Anion Gap 12 (12-20) BUN 19 H (9-16) mg/dL Creatinine 1.09 (0.5-1.4) mg/dL Estim Creat Clear Calc 84.4 Estimated GFR > 60 POC Glucose 137 H (60-115) mg/dL Random Glucose 149 H (60-115) mg/dL Calcium 8.8 (8.4-10.2) mg/dL Magnesium 1.9 (1.6-2.6) mg/dL Total Bilirubin 0.4 (0.0-1.0) mg/dL AST 22 (5-37) U/L ALT 31 (0-40) U/L Alkaline Phosphatase 65 (39-117) U/L Troponin I High Sens 3.7 (<3.5-35.0) ng/L Total Protein 6.6 (6.5-8.0) g/dL Albumin 4.2 (3.5-5.0) g/dL Lipase 30 (8-78) U/L Discharge Plan Discharge Clinical Impression: Hypoglycemia, Chest pain Patient Disposition: Home, Self-Care Instructions: Noncardiac Chest Pain (ED), Hypoglycemia in a Person with Diabetes (ED) Additional Instructions: All of your screening labs including a cardiac enzymes were normal. There were no concerning changes on your EKG. Your blood sugar was 149 at the time of your discharge. Be sure to take your diabetes medications as directed. Follow up with your primary care provider as needed. Prescriptions: No Action latanoprost 0.005 % drops 1 drp ophthalmic (eye) DAILY Qty: 7.5 3RF Rx Instructions: as directed epinephrine [EpiPen 2-Dread] 0.3 mg/0.3 mL auto-injector 0.3 mg IM Q4H PRN (Reason: anaphylaxis) Qty: 2 0RF albuterol sulfate 2.5 mg /3 mL (0.083 %) solution for nebulization 2.5 mg continuous nebulization QID PRN (Reason: shortness of breath or wheezing) 30 Days Qty: 480 5RF tamsulosin 0.4 mg capsule 0.4 mg PO DAILY 90 Days Qty: 90 1RF ipratropium-albuterol 0.5 mg-3 mg(2.5 mg base)/3 mL solution for nebulization 3 ml inhalation Q6H PRN (Reason: shortness of breath or wheezing) Qty: 180 11RF omeprazole 40 mg capsule,delayed release(DR/EC) 40 mg PO DAILY Qty: 30 6RF clotrimazole 1 % cream 1 appl topical BID 28 Days Qty: 45 2RF diphenhydramine HCl [Benadryl] 25 mg capsule 25 mg PO .COMPLEX Qty: 3 0RF Rx Instructions: 25 mg orally; Take 1 tablet the morning of day Before CT scan, Take 1 tablet the evening Before the CT scan, Take 1 tablet the DAY of the CT scan ( 2 hours prior) prednisone 20 mg tablet 20 mg PO .COMPLEX Qty: 3 0RF Rx Instructions: 20 mg orally; Take 1 tablet the morning of day Before CT scan, Take 1 tablet the evening Before the CT scan, Take 1 tablet the DAY of the CT scan ( 2 hours prior) olmesartan 40 mg tablet 40 mg PO DAILY Qty: 90 0RF hydrochlorothiazide 25 mg tablet 25 mg PO DAILY Qty: 90 0RF azithromycin 250 mg tablet 250 mg PO 3XW 28 Days Qty: 12 0RF Rx Instructions: Take 1 tablet on Monday/Monday/Monday Trelegy Ellipta 200-62.5-25 mcg blister with device 1 inh inhalation DAILY 30 Days Qty: 60 12RF famotidine 40 mg tablet 40 mg PO BEDTIME Qty: 30 0RF budesonide 0.5 mg/2 mL suspension for nebulization 0.5 mg inhalation BID 30 Days Qty: 120 0RF hydralazine 50 mg tablet 50 mg PO TID 90 Days Qty: 270 0RF Mounjaro 2.5 mg/0.5 mL pen injector 2.5 mg subcut QWEEK Qty: 2 3RF Rx Instructions: for 4 weeks cholecalciferol (vitamin D3) [Vitamin D3] 25 mcg (1,000 unit) capsule 25 mcg PO DAILY Qty: 30 0RF (DME) FreeStyle Lite Strips Strip See Rx Instructions .ROUTE .COMPLEX Qty: 100 5RF Dose Instruction: USE DIRECTED TO TEST 5 TIMES DAILY. Rx Instructions: USE DIRECTED TO TEST 5 TIMES DAILY. montelukast 10 mg tablet 10 mg PO QPM Qty: 90 0RF aspirin 81 mg tablet,delayed release (DR/EC) 81 mg PO DAILY lorazepam 0.5 mg tablet See Rx Instructions .ROUTE .COMPLEX PRN (Reason: anxiety) 30 Days Qty: 60 0RF Rx Instructions: 1 to 2 tablets orally twice a day as needed; PRN; prednisone 10 mg tablet 10 mg PO DIRECTED 8 Days Qty: 20 0RF Rx Instructions: TAke 4 tabs for 2 days, then 3 tabs for 2 days, then 2 tabs for 2 days, then 1 tab for 2 days famotidine 40 mg tablet 40 mg PO BID PRN (Reason: abdominal pain) Qty: 60 0RF albuterol sulfate [Ventolin HFA] 90 mcg/actuation HFA aerosol inhaler 2 puff PO QID PRN (Reason: shortness of breath or wheezing) 90 Days Qty: 3 3RF (DME) COMPRESSION STOCKINGS (medium compression - 20 to 30 mm); Knee high medium compression See Rx Instructions .Route .MEDSUPPLY Qty: 3 11RF Rx Instructions: As directed (DME) CANE See Rx Instructions .Route .MEDSUPPLY Qty: 1 0RF Rx Instructions: As directed melatonin 5 mg tablet 5 mg PO BEDTIME PRN (Reason: sleep) Qty: 30 11RF (DME) FreeStyle Lola 3 Plus Sensor Device See Rx Instructions .ROUTE .MEDSUPPLY Qty: 1 Rx Instructions: As directed zolpidem 10 mg tablet 10 mg PO BEDTIME PRN (Reason: insomnia) 30 Days Qty: 30 3RF fluticasone propionate [Flonase Allergy Relief] 50 mcg/actuation spray,suspension 2 spray intranasal DAILY PRN (Reason: nasal congestion) Qty: 16 5RF Rx Instructions: administer into each nostril diclofenac sodium [Voltaren Arthritis Pain] 1 % gel 4 g topical QID PRN (Reason: pain) Qty: 100 3RF Rx Instructions: apply to foot includes sole/toes/top of foot amlodipine 5 mg tablet 5 mg PO DAILY Qty: 90 3RF Rx Instructions: BP medication metoprolol succinate 50 mg tablet extended release 24 hr 50 mg PO DAILY Print Language: Welsh
[2024-10-19 03:45] VITALS: BP 166/81; PULSE 72; RESP 13; TEMP 36.7; O2SAT 97
== END 2024-10-19 03:55 | disposition home or self-care (01) ==
PROVIDERS: Emergency Provider Emergency Medicine; PCP Internal Medicine
DX: R07.89 Other chest pain (principal); R51.9 Headache, unspecified; R42 Dizziness and giddiness; E11.9 Type 2 diabetes mellitus without complications; Z79.899 Other long term (current) drug therapy; Z79.85 Long-term (current) use of injectable non-insulin antidiabetic drugs; Z79.84 Long term (current) use of oral hypoglycemic drugs
CPT/HCPCS: 36415; 80053; 82947; 83690; 83735; 84484; 85025; 93005; 99283; 99284

== ENCOUNTER → 2024-10-19 02:00 | Outpatient (BNV) | payer OTHER, SELFPAY | PROVIDERS: Emergency Provider Emergency Medicine; PCP Internal Medicine; Visit Provider Internal Medicine Cardiovascular Disease | DX: I45.10 Unspecified right bundle-branch block (principal) | CPT/HCPCS: 93010 ==

== ENCOUNTER 2024-10-21 09:44 | Outpatient (AMB) | payer OTHER, SELFPAY ==
--- NOTE | 2024-10-21 10:02 | A.OFFVIS_ITS ---
Vital Signs 10/21/24 10:03 Height 5 ft 8 in Weight 227 lb 1.218 oz BMI 34.5 BP 120/82 Blood Pressure Location Rt brachial Position Sitting Pulse 91 Pulse Source Pulse Oximeter Pulse Oximetry (%) 98 Oxygen Delivery Method Room Air Intake Visit Reasons: T2DM Intake Note: Patient present today for Type 2 Diabetes Mellitus Last Diabetic eye exam:06/2024 Last Podiatry Visit: 09/2024 Random Glucose:168 mg/dl HgA1C: 6.2% 08/05/24 Accompanied by: Self / Same As Patient Allergies iodine (Iodine) Allergy (Severe, Verified 10/21/24 10:02) Anaphylaxis lisinopril Allergy (Severe, Verified 10/21/24 10:02) Rash metformin Allergy (Severe, Verified 10/21/24 10:02) diarrhea shellfish derived Allergy (Severe, Verified 10/21/24 10:02) Anaphylaxis meperidine (From Demerol) Allergy (Mild, Verified 10/21/24 10:02) RASH oxycodone (From Percocet) Adverse Reaction (Mild, Verified 10/21/24 10:02) MOUTH DRYNESS,RASH Mercury Detox Allergy (Severe, Uncoded 10/19/24 02:12) Throat closing (charcoal) Medication List - Last Reconciled 10/21/24 by Oneal Guerrier MD albuterol sulfate 2.5 mg (3 mL) continuous nebulization QID PRN 30 days albuterol sulfate 90 mcg/actuation (Ventolin HFA) 2 puffs PO QID PRN 90 days amlodipine 5 mg PO DAILY aspirin 81 mg PO DAILY azithromycin 250 mg PO 3XW 28 days blood sugar diagnostic (FreeStyle Lite Strips) USE DIRECTED TO TEST 5 TIMES DAILY. blood-glucose sensor (FreeStyle Lola 3 Plus Sensor device) As directed budesonide 0.5 mg (2 mL) inhalation BID 30 days [CANE As directed] cholecalciferol (vitamin D3) (Vitamin D3) 25 mcg PO DAILY clotrimazole 1% 1 appl topical BID 4 weeks [COMPRESSION STOCKINGS (medium compression - 20 to 30 mm); Knee high As directed ] diclofenac sodium 1% (Voltaren Arthritis Pain) 4 grams topical QID PRN diphenhydramine HCl (Benadryl) 25 mg orally; Take 1 tablet the morning of day Before CT scan, Take 1 tablet the evening Before the CT scan, Take 1 tablet the DAY of the CT scan ( 2 hours prior) epinephrine (EpiPen 2-Dread) 0.3 mg (0.3 mL) IM Q4H PRN famotidine 40 mg PO BID PRN famotidine 40 mg PO BEDTIME fluticasone propionate 50 mcg/actuation (Flonase Allergy Relief) 2 sprays intranasal DAILY PRN [id number] 200-62.5-25 mcg (Trelegy Ellipta) 1 inh inhalati on DAILY 30 days hydralazine 50 mg PO TID 90 days hydrochlorothiazide 25 mg PO DAILY ipratropium-albuterol 0.5 mg-3 mg(2.5 mg base)/3 mL 3 mL inhalation Q6H PRN latanoprost 0.005% 1 drp ophthalmic (eye) DAILY lorazepam 1 to 2 tablets orally twice a day as needed; PRN; 30 days melatonin 5 mg PO BEDTIME PRN metoprolol succinate ER 50 mg PO DAILY montelukast 10 mg PO QPM olmesartan 40 mg PO DAILY omeprazole 40 mg PO DAILY prednisone 20 mg orally; Take 1 tablet the morning of day Before CT scan, Take 1 tablet the evening Before the CT scan, Take 1 tablet the DAY of the CT scan ( 2 hours prior) prednisone 10 mg PO DIRECTED 8 days tamsulosin 0.4 mg PO DAILY 90 days tirzepatide (Mounjaro) 2.5 mg (0.5 mL) subcut QWEEK zolpidem 10 mg PO BEDTIME PRN 30 days HPI Comments Details: 57 YO M who is seen in consultation for T2DM at the request of PCP. Initially diagnosed with T2DM in last yr . Was initially started on treatment with metformin.Could not tolerate b/c of diaarhea Current regimen Glipizide 5 mg Mounjaro 2.5 ,g Qwkly Lantus 10 units . Lola download shows he is using the sensor 15% of the time. Average glucose is 173 variability 29.9%. He is in target range 64% of the time with 24% high blood sugars and h 12% very high blood sugar and no hypoglycemia Reports low sugars happened once and brought pt to ER Family history of T2DM in mother, brother, sister . Has eyes checked yearly, last eye exam 2 mos ago , denies retinopathy. Has neuropathy, , sees podiatry last saw 2 yrs ago . Denies nephropathy, on LUIGI/ARB. Has HLD, on statin. Denies CAD. Not Had diabetes education. [facility] Medical History Dyspnea Standard chest x-ray abnormal Diabetes mellitus RBBB (right bundle branch block) Laryngospasm Chronic bronchitis Supplemental oxygen dependent Onychomycosis Hx of fracture of fibula GERD without esophagitis Asthma-COPD overlap syndrome Diastasis recti JOSÉ (obstructive sleep apnea) Bursitis Low back pain Claustrophobia Hemoptysis Anxiety Insomnia Migraine Pure hypercholesterolemia Benign essential hypertension Type 2 diabetes mellitus with hyperglycemia, without long-term current use of insulin Stasis edema of both lower extremities Lumbar degenerative disc disease Obesity (BMI 30-39.9) Chronic rhinitis Hiatal hernia Erectile dysfunction Surgical History History of bronchoscopy History of endoscopy Hx of colonoscopy Hx of cardiac catheterization History of nasal surgery History of carpal tunnel surgery Family History Father No problems noted. 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 Absence of acromegalic features. Neck exam reveals nl size thyroid about 15 gms. No thyroid nodules palpable. No carotid bruits present. Lungs CTA. Heart S1 S2, Reg R/R. No M/R/ G. Skin exam reveals absence of vitiligo or acanthosis nigricans. Abdominal exam reveals Soft NT/ND with NA BS. No organomegaly present. Neck Other: . Extrem Other: Visual exam of foot performed. No ulcerations or open lesions. No onchomycosis, no callouses.Pulses 2 + distally Sensation intact to monofilament exam. Vibratory sensation sensed is intact with 128 Hz tuning fork Results Reviewed Results Reviewed: Laboratory Last Values Glucose (Clinic) 168 mg/dL (60-115) H 10/21/24 10:15 Assessment & Plan Assessment & Plan (1) Type 2 diabetes mellitus with hyperglycemia, without long-term current use of insulin: Code(s): E11.65 - Type 2 diabetes mellitus with hyperglycemia Category: Medical Plan: This is a 59-year-old male with a history of type 2 diabetes being treated with glipizide, Trulicity and basal insulin with excellent improved glycemic control and no known microvascular or macrovascular complications. The plan is to stop the Gipizide . Patient should use the sensor more frequently as A1c is good and in target but limited use the Lola shows out of target blood sugars. There was not enough information today in the sensor to make other regimen changes other than to avoid hypoglycemia with the glipizide. Patient will follow up with RALPH Goodman in 3 wks Medications: New 2 insulin glargine (Lantus Solostar U-100 Insulin) 10 units (0.1 mL) subcut QPM 15 mL 5RF Changed From blood-glucose sensor (FreeStyle Lola 3 Plus Sensor device) As directed 1 ea To blood-glucose sensor (FreeStyle Lola 3 Plus Sensor device) As directed change every 14 days 1 ea 0RF Coding Level of Care Code Est Pt Level 4 (27615) Diagnoses Type 2 diabetes mellitus with hyperglycemia, without long-term current use of insulin E11.65
[2024-10-21 10:03] VITALS: BP 120/82; PULSE 91; O2SAT 98; BMI 34.5
--- OUTSIDE RECORDS SUMMARY | 2024-10-21 10:17 | XMS_ITS | Clinical Summary ---
Author Organization Located Within [facility] Address [address] [place] [address] [place] [address] Phone Care Team Providers Care Logistics Engineer Name Role Phone Oliverio Emerson MD Primary Care Provider [phone] Allergies Active Allergy Reactions Criticality Noted Date [...] Payer (Ef fective 1992-Present) Name:Cullen Keaton Member ID:[id number] Relation to Subscriber:Self Name:Keaton Cullen Subscriber ID:[id number] Payer ID:[id number] Group ID:Not on file Type:Medicare Address: [facility] [employer] [facility] [address] [address] [facility] ONE CARE MEDICARE REPLACEMENT [place] [id number] MEDICARE PART A & B Member Subscriber Plan / Payer (Ef fective 1992-Present) Name:Subhash Keaton Member ID:[id number] Relation to Subscriber:Self Name:Keaton Cullen Subscriber ID:[id number] Payer ID:[id number] Group ID:Not on file Type:Medicare Address: [employer] [address] ONE CARE MEDICARE REPLACEMENT MEDICARE PART A & B CARE MEDICARE REPLACEMENT MEDICARE PART A & B ONE CARE MEDICARE REPLACEMENT [place] [facility] MEDICARE PART A & B CARE MEDICARE REPLACEMENT MEDICARE PART A & B ONE CARE MEDICARE REPLACEMENT MEDICARE PART A & B [id number] [place] [address] ONE CARE MEDICARE REPLACEMENT MEDICARE PART A & B CARE MEDICARE REPLACEMENT [place] [id number] MEDICARE PART A & B ONE CARE MEDICARE REPLACEMENT Care Teams Logistics Engineer Relationship Specialty Start Date End Date Oliverio Emerson MD [address] [place] [address] [place] [address] PCP - General Internal Medicine 11/15/21 Additional Source Comments The information contained in this document represents components of the legal health record. It is not the complete legal health record.[facility]
--- OUTSIDE RECORDS SUMMARY | 2024-10-21 10:17 | XMS_ITS | Clinical Summary ---
Author Organization 175 [facility] Address [address] [place] [address] Phone Care Team Providers Care Weblogic Administrator Name Role Phone Oliverio Emerson MD Primary [...] 09/03/2024 10:45 AM EDT Consult Orthopedic Surgery [place] [address] [address] Mike Velasquez DPM Controlled type 2 diabetes [...] 10:00 AM EDT Office Visit Orthopedic Surgery [facility] [address] [address] Mike Velasquez DPM [address] [address] Health Maintenance Due Date Last Done Comments [...] to complete this topic Insurance [place] - [place] [employer] MEDICARE Member Subscriber Plan / Payer (Ef fective 2018-Present) Name:KEATON REDDY Relation to Subscriber:Self Name:Keaton Reddy Payer ID:[id number] Group ID:[id number] Type:Not on file Address: [address] [place] [address] Care Teams Weblogic Administrator Relationship Specialty Start Date End Date Oliverio Emerson MD [address] [place] [address] [address] [place], [place] PCP - General 02/21/22
[2024-10-21 10:20] LABS: Glucose, Whole Blood 168 mg/dL (60-115)
== END 2024-10-21 10:47 | disposition home or self-care (01) ==
PROVIDERS: PCP Internal Medicine; Visit Provider Internal Medicine Endocrinology, Diabetes & Metabolism
DX: E11.65 Type 2 diabetes mellitus with hyperglycemia (principal)
CPT/HCPCS: 99214

== ENCOUNTER → 2024-10-21 09:44 | Outpatient (BNVA) | payer OTHER, SELFPAY | PROVIDERS: PCP Internal Medicine; Visit Provider Physician Assistant | DX: E11.65 Type 2 diabetes mellitus with hyperglycemia (principal); Z79.4 Long term (current) use of insulin; Z79.899 Other long term (current) drug therapy | CPT/HCPCS: 82947; 99212 ==

== ENCOUNTER 2024-10-31 09:32 | Outpatient (AMB) | payer OTHER, SELFPAY ==
[2024-10-31 09:41] VITALS: BP 140/96; PULSE 67; O2SAT 97; BMI 34.2
--- NOTE | 2024-10-31 09:41 | A.OFFVIS_ITS ---
Vital Signs 10/31/24 09:41 Height 5 ft 8 in Weight 224 lb 13.944 oz BMI 34.2 BP 140/96 H Blood Pressure Location Lt brachial Position Sitting Pulse 67 Pulse Source Pulse Oximeter Pulse Oximetry (%) 97 Oxygen Delivery Method Room Air Intake Visit Reasons: Asthma Senior Statistician Required: No Accompanied by: Self / Same As Patient Allergies iodine (Iodine) Allergy (Severe, Verified 10/31/24 09:44) Anaphylaxis lisinopril Allergy (Severe, Verified 10/31/24 09:44) Rash metformin Allergy (Severe, Verified 10/31/24 09:44) diarrhea shellfish derived Allergy (Severe, Verified 10/31/24 09:44) Anaphylaxis meperidine (From Demerol) Allergy (Mild, Verified 10/31/24 09:44) RASH oxycodone (From Percocet) Adverse Reaction (Mild, Verified 10/31/24 09:44) MOUTH DRYNESS,RASH Mercury Detox Allergy (Severe, Uncoded 10/19/24 02:12) Throat closing (charcoal) HPI Comments Details: The patient is a 59-year-old gentleman with history of reflux disease, hiatal hernia and uncontrolled asthma. He has had multiple exacerbations required prednisone. At least twice in the last month. He has had x-rays demonstrating no acute disease although he still having worsening respiratory symptoms specially at nighttime. He did have a CBC which is unremarkable. He has also had allergy testing in the past and he is allergic to multiple things. He has been taking antihistamines and leukotriene inhibitors without any significant improvement in his symptoms. Dealing the have some is prednisone. He also describes a chronic bronchitis with mucus production every night and congestion in the chest area. He does know about the reflux and continues try reflux diet. He does have a specialist for this. We talked about the importance of reflux therapy and also sleeping elevated to minimize micro aspirations into the lungs. Patient also has a hard time sleeping. He wakes up multiple times with shortness of breath. He also wakes up tired with headaches. His Lynbrook score is elevated 10/24. The patient has never had a sleep study. He will have to get a sleep study at this time. 08/03/2023 the patient is here for a pulmonary follow-up visit. Overall the patient has been doing well from a respiratory status. Has been responding well to the Trelegy inhaler. He has no longer using Daliresp. He continues uses singular. In addition to that has not had any asthma flare-ups which is reassuring. The patient has been complaining of abdominal discomfort. He had an injury or trauma to his abdominal muscles and afterwards ended up with a lump in the abdomen. He went to the ER and was recommended he follow-up with his primary care doctor. I do believe he has a CT scan coming up in the next few weeks. In the meantime he is struggling with the CPAP. The mask was causing him to have ulcerations of the nasal bridge. Otherwise he has been using the oxygen for sleep. I did recommend he go back to the CPAP. I did have an F30 mask available that he can use. The patient should continue to use CPAP every night. I will try to send supplies if he does tolerate the F30 mask to the [employer] in order for him to stay active with his usage and also with new supplies. 01/24/2024 the patient is here for a pulmonary follow-up visit. The patient overall is doing okay. He has been having issues while going through some family complex right now. His blood pressure has been slightly elevated because of that. He has been having hard time sleeping. He does use Ambien send to the pharmacy. He can also take some melatonin as well to try to help a little bit more. He has not been using the CPAP. He can not tolerate it. He has tried multiple masks and he has been fighting with it. Therefore, he finds that the oxygen is very helpful for him he does use it every night. Therefore he can discontinue the CPAP and just continue with oxygen supplementation at nighttime. He does not need any oxygen with activity at this time. The patient does uses respiratory inhalers as prescribed. Will follow-up in 6 months if he has any issues prior to that he will call for an earlier assessment. 07/30/2024The patient is here for pulmonary Follow-up visit. Overall the patient has been doing about the same. Still complaining of dyspnea on exertion. Moderate severity. the patient has gained some weight. Probably affecting him some. He does use respiratory inhalers with good effect. Does complaint of difficulty swallowing. Feels like his reflux is active. He does take a PPI but does not always follow reflux diet. He also sleeps flat since he sleeps on his side. We did talk about the importance of sleeping elevated. And also following closely reflux diet. He has already had endoscopies in the past and required esophageal dilation. with a review his chest x-ray that he had recently. Seems to have some increased pronounced hilum. therefore, based on the ongoing symptoms and the abnormal chest x-ray will go ahead and request a CT scan of the chest. In the meantime will increase his antacid medication and the patient will try to sleep elevated with head of the bed elevated with bed risers. He will try to continue with the reflux diet. Will continue with current respiratory therapy since his exam is stable. He is also going to be following up with Cardiology for additional testing including a stress test. Will follow-up in 2-3 months since his progress. 10/31/2024 the patient is here for a pulmonary follow-up visit. Overall he is abbi mcdonnell. He did have a CT scan of the chest which we personally reviewed demonstrating stable pulmonary nodules which is reassuring. He also underwent a gastric emptying study which was normal. He does have dysphagia and does have issues with esophageal strictures and he is going for an EGD likely with dilation soon. The meantime he still complaining of chest congestion. Hip difficult to expectorate. The azithromycin 3 times a week does help him. Also helps his motility issues. Therefore will continue for now. He continues uses respiratory therapy. Although he was diagnosed with glaucoma so therefore will remove any muscarinic antagonist from his regimen at this time. He does have some wheezing on exam right now. He will continue his allergy therapies. If he continues to be symptomatic he can not go go ahead and get blood work to see if he is a candidate for any biologic therapies. [facility] Medical History (Updated 11/03/24 @ 19:36 by Alexis Oates MD) Glaucoma Dyspnea Standard chest x-ray abnormal Diabetes mellitus RBBB (right bundle branch block) Laryngospasm Chronic bronchitis Supplemental oxygen dependent Onychomycosis Hx of fracture of fibula GERD without esophagitis Asthma-COPD overlap syndrome Diastasis recti JOSÉ (obstructive sleep apnea) Bursitis Low back pain Claustrophobia Hemoptysis Anxiety Insomnia Migraine Pure hypercholesterolemia Benign essential hypertension Type 2 diabetes mellitus with hyperglycemia, without long-term current use of insulin Stasis edema of both lower extremities Lumbar degenerative disc disease Obesity (BMI 30-39.9) Chronic rhinitis Hiatal hernia Erectile dysfunction Surgical History History of bronchoscopy History of endoscopy Hx of colonoscopy Hx of cardiac catheterization History of nasal surgery History of carpal tunnel surgery Family History Father No problems noted. Mother Chronic kidney disease (CKD) Heart attack Other Mental health problem Social History Household Members: Spouse, Family and Children Household Members Other:: adult children Housing: House Are you a primary post acute care registered nurse to a significant other at home: No Do you presently have visiting nurse or other home services: Yes ([employer]) Alcohol intake: never Patient Tobacco Use Status: Never used Tobacco e-Cigarette/Vaping Use: Never Used Second Hand Smoke Exposure: Yes (employees smoked atwork) service: No Current occupational status: disabled Cognitive needs: No Hearing needs: No Vision needs: No Review of Systems Const Denies chills, Denies fatigue, Denies fever(s), Reports weight gain and Denies weight loss ENT Reports dysphagia and Denies dizziness Card Denies chest pain, Denies leg edema, Denies lightheadedness, Denies palpitations, Reports dyspnea on exertion, Denies orthopnea and Denies other Resp Denies cough, Reports dyspnea on exertion and Reports wheezing GI Denies hematochezia, Denies change in stool character, Reports dysphagia, Reports dyspepsia and Reports heartburn Musc Denies abnormal gait, Denies muscle weakness, Denies numbness, Denies radiating pain into limb and Denies tingling Neuro Denies abnormal gait, Denies dizziness, Denies numbness and Denies tingling Endo Denies fatigue and Denies palpitations Aller/Immun Reports wheezing Physical Exam Vital Signs: Last Vital Signs Pulse 67 10/31/24 09:41 BP 140/96 H 10/31/24 09:41 Pulse Ox 97 10/31/24 09:41 Oxygen Delivery Method Room Air 10/31/24 09:41 BMI result Body Mass Index 34.2 Const General: cooperative, healthy appearing and comfortable Orientation/consciousness: patient oriented x3 Limitations: no limitations HEENT Head: Yes normocephalic Neck Neck: Yes normal visual inspection and Yes full ROM Chest Chest palpation & inspection: normal inspection of the chest Resp Effort & Inspection: normal respiratory effort and able to speak in complete sentences Auscultation: diminished lung sounds Cardio Rate: regular rate Rhythm: regular rhythm Heart sounds: normal S1 and S2 GI Palpation (GI): Soft to palpation Skin General skin exam: no rashes or lesions noted Neuro General: patient oriented x3 Extrem General: Yes no clubbing, cyanosis or edema Assessment & Plan Assessment & Plan (1) Asthma-COPD overlap syndrome: Code(s): J44.9 - Chronic obstructive pulmonary disease, unspecified Category: Medical (2) Hiatal hernia: Code(s): K44.9 - Diaphragmatic hernia without obstruction or gangrene Category: Medical (3) Chest discomfort: Code(s): R07.89 - Other chest pain Category: Medical (4) Standard chest x-ray abnormal: Code(s): R93.89 - Abnormal findings on diagnostic imaging of other specified body structures Category: Medical (5) Glaucoma: Code(s): H40.9 - Unspecified glaucoma Category: Medical Plan stop Trelegy 200mg due to Glaucoma start Breo DARÍO as needed continue Singulair stopped CPAP continue oxygen supplementation while sleeping continue PPI restart Azithromycin MWF sleep with HOB elevated with bed risers zolpidem F/U 6 months Medications: New fluticasone furoate-vilanterol 200-25 mcg/dose (Breo Ellipta) 1 inh inhalation DAILY 60 ea 11RF 30 days Refilled fluticasone propionate 50 mcg/actuation (Flonase Allergy Relief) administer into each nostril 2 sprays intranasal DAILY PRN 16 grams 11RF nasal congestion Discontinued vtburcvvkai-mvtniddnp-okyxupca 200-62.5-25 mcg (Trelegy Ellipta) Discontinued Reason: Doctor's Order 1 inh inhalation DAILY 30 days 60 ea 12RF ipratropium-albuterol 0.5 mg-3 mg(2.5 mg base)/3 mL Discontinued Reason: Doctor's Order 3 mL inhalation Q6H PRN 180 mL 11RF shortness of breath or wheezing Coding Level of Care Code Est Pt Level 4 (80131) Complex EM visit Add On G2211 Diagnoses Asthma-COPD overlap syndrome J44.9 Hiatal hernia K44.9 Chest discomfort R07.89 Standard chest x-ray abnormal R93.89 Glaucoma H40.9 Time Spent (min) 17
--- OUTSIDE RECORDS SUMMARY | 2024-10-31 10:13 | XMS_ITS | Clinical Summary ---
Author Organization [facility] Address [address] [place] [address] [place] [address] Phone Care Team Providers Care Belt Operator Name Role Phone Oliverio Emerson MD Primary Care Provider [phone] Allergies Active Allergy Reactions Criticality Noted Date [...] Payer (Ef fective 1992-Present) Name:Cullen Keaton Member ID:[id number] Relation to Subscriber:Self Name:Keaton Cullen Subscriber ID:[id number] Payer ID:[id number] Group ID:Not on file Type:Medicare Address: [facility] [employer] [facility] [address] [address] [facility] ONE CARE MEDICARE REPLACEMENT [place] [id number] MEDICARE PART A & B Member Subscriber Plan / Payer (Ef fective 1992-Present) Name:Subhash Keaton Member ID:[id number] Relation to Subscriber:Self Name:Keaton Cullen Subscriber ID:[id number] Payer ID:[id number] Group ID:Not on file Type:Medicare Address: [employer] [address] ONE CARE MEDICARE REPLACEMENT MEDICARE PART A & B CARE MEDICARE REPLACEMENT MEDICARE PART A & B ONE CARE MEDICARE REPLACEMENT [place] [facility] MEDICARE PART A & B CARE MEDICARE REPLACEMENT MEDICARE PART A & B ONE CARE MEDICARE REPLACEMENT MEDICARE PART A & B [id number] [place] [address] ONE CARE MEDICARE REPLACEMENT MEDICARE PART A & B CARE MEDICARE REPLACEMENT [place] [id number] MEDICARE PART A & B ONE CARE MEDICARE REPLACEMENT Care Teams Belt Operator Relationship Specialty Start Date End Date Oliverio Emerson MD [address] [place] [address] [place] [address] PCP - General Internal Medicine 11/15/21 Additional Source Comments The information contained in this document represents components of the legal health record. It is not the complete legal health record.[facility]
--- OUTSIDE RECORDS SUMMARY | 2024-10-31 10:13 | XMS_ITS | Clinical Summary ---
Author Organization 175 [facility] Address 175 [place] [address] Phone Care Team Providers Care Cutting Table Operator Name Role Phone Oliverio Emerson MD [...] 09/03/2024 10:45 AM EDT Consult Orthopedic Surgery [place] [address] [address] Mike Velasquez DPM Controlled type 2 diabetes [...] 10:00 AM EDT Office Visit Orthopedic Surgery [facility] [address] [address] Mike Velasquez DPM [address] [address] Health Maintenance Due Date Last Done Comments [...] to complete this topic Insurance [place] [employer] MEDICARE Member Subscriber Plan / Payer (Ef fective 2018-Present) Name:KEATON REDDY Relation to Subscriber:Self Name:Keaton Reddy Payer ID:[id number] Group ID:[id number] Type:Not on file Address: [address] [place] [address] Care Teams Cutting Table Operator Relationship Specialty Start Date End Date Oliverio Emerson MD [address] [place] [address] [address] [place], [place] PCP - General 02/21/22
== END 2024-10-31 15:10 | disposition home or self-care (01) ==
LOC: HO.HPS 09:35
PROVIDERS: PCP Internal Medicine; Visit Provider Hospitalist
DX: J44.9 Chronic obstructive pulmonary disease, unspecified (principal); K44.9 Diaphragmatic hernia without obstruction or gangrene; R07.89 Other chest pain; R93.89 Abnormal findings on diagnostic imaging of other specified body structures; H40.9 Unspecified glaucoma
CPT/HCPCS: 99214; G2211

== ENCOUNTER → 2024-10-31 09:32 | Outpatient (BNVA) | payer OTHER, SELFPAY | PROVIDERS: PCP Internal Medicine; Visit Provider Hospitalist | DX: K44.9 Diaphragmatic hernia without obstruction or gangrene (principal); R07.89 Other chest pain; R93.89 Abnormal findings on diagnostic imaging of other specified body structures; R06.00 Dyspnea, unspecified; J44.9 Chronic obstructive pulmonary disease, unspecified; G47.33 Obstructive sleep apnea (adult) (pediatric) | CPT/HCPCS: 99212 ==

== ENCOUNTER 2024-11-11 13:02 | Outpatient (AMB) | payer OTHER, SELFPAY ==
[2024-11-11 13:07] VITALS: BP 120/82; PULSE 90; O2SAT 96; BMI 33.8
--- NOTE | 2024-11-11 13:07 | MHC.OFFVIS ---
Vital Signs 11/11/24 13:07 Height 5 ft 8 in Weight 222 lb 7.143 oz BMI 33.8 BP 120/82 Blood Pressure Location Lt brachial Position Sitting Pulse 90 Pulse Source Pulse Oximeter Pulse Oximetry (%) 96 Oxygen Delivery Method Room Air Intake Visit Reasons: f/u Type 2 DM Intake Note: Patient present today for Type 2 Diabetes Mellitus Last Diabetic eye exam: 07/2024 Last Podiatry Visit: 09/2024 Random Glucose: 180 mg/dl HgA1C: 7.5% Slubber Runner Required: No Accompanied by: Self / Same As Patient Allergies iodine (Iodine) Allergy (Severe, Verified 11/11/24 13:13) Anaphylaxis lisinopril Allergy (Severe, Verified 11/11/24 13:13) Rash metformin Allergy (Severe, Verified 11/11/24 13:13) diarrhea shellfish derived Allergy (Severe, Verified 11/11/24 13:13) Anaphylaxis meperidine (From Demerol) Allergy (Mild, Verified 11/11/24 13:13) RASH oxycodone (From Percocet) Adverse Reaction (Mild, Verified 11/11/24 13:13) MOUTH DRYNESS,RASH Mercury Detox Allergy (Severe, Uncoded 11/11/24 13:13) Throat closing (charcoal) Medication List - Last Reconciled 11/11/24 by Rae Oconnor PA-C albuterol sulfate 2.5 mg (3 mL) continuous nebulization QID PRN 30 days albuterol sulfate 90 mcg/actuation (Ventolin HFA) 2 puffs PO QID PRN 90 days amlodipine 5 mg PO DAILY aspirin 81 mg PO DAILY azithromycin 250 mg PO 3XW 28 days blood sugar diagnostic (FreeStyle Lite Strips) USE DIRECTED TO TEST 5 TIMES DAILY. blood-glucose sensor (FreeStyle Lola 3 Plus Sensor device) As directed change every 14 days budesonide 0.5 mg (2 mL) inhalation BID 30 days [CANE As directed] cholecalciferol (vitamin D3) (Vitamin D3) 25 mcg PO DAILY clotrimazole 1% 1 appl topical BID 4 weeks [COMPRESSION STOCKINGS (medium compression - 20 to 30 mm); Knee high As directed] diclofenac sodium 1% (Voltaren Arthritis Pain) 4 grams topical QID PRN diphenhydramine HCl (Benadryl) 25 mg orally; Take 1 tablet the morning of day Before CT scan, Take 1 tablet the evening Before the CT scan, Take 1 tablet the DAY of the CT scan ( 2 hours prior) epinephrine (EpiPen 2-Dread) 0.3 mg (0.3 mL) IM Q4H PRN famotidine 40 mg PO BID PRN fluticasone furoate-vilanterol 200-25 mcg/dose (Breo Ellipta) 1 inh inhalation DAILY 30 days fluticasone propionate 50 mcg/actuation (Flonase Allergy Relief) 2 sprays intranasal DAILY PRN hydralazine 50 mg PO TID 90 days hydrochlorothiazide 25 mg PO DAILY insulin glargine (Lantus Solostar U-100 Insulin) 10 units (0.1 mL) subcut QPM latanoprost 0.005% 1 drp ophthalmic (eye) DAILY lorazepam 1 to 2 tablets orally twice a day as needed; PRN; 30 days melatonin 5 mg PO BEDTIME PRN metoprolol succinate ER 50 mg PO DAILY montelukast 10 mg PO QPM nebulizer and compressor (Portable Nebulizer System) As directed olmesartan 40 mg PO DAILY omeprazole 40 mg PO DAILY prednisone 20 mg orally; Take 1 tablet the morning of day Before CT scan, Take 1 tablet the evening Before the CT scan, Take 1 tablet the DAY of the CT scan ( 2 hours prior) prednisone 10 mg PO DIRECTED 8 days tamsulosin 0.4 mg PO DAILY 90 days zolpidem 10 mg PO BEDTIME PRN 30 days HPI HPI f/u Type 2 DM: Details: Patient is a 59 year-old male with a significant past medical history of controlled 2 diabetes, hyperlipidemia, hypertension, COPD with asthma overlap presenting today for a diabetic follow-up. Endo: His last A1c was 6.2 and today his A1c is 7.5. He is on mounjaro 2.5 mg, glipizide and Lantus 10 units daily -he was last seen by my colleague a few weeks ago and told to hold the glipizide but states that he does not recall being told this so he has not yet made any changes besides intermittently reducing his Lantus to 5 units or skipping the dose because of low blood sugars. He states he is frustrated because it does not seem to matter what he eats or does not eat but the sugar remains elevated. -He did get some nausea with the higher doses of Mounjaro. He had nausea with Trulicity at higher doses. Tried Jardiance but made him feel sick and experienced urinary symptoms. 69% in range 31% hyperglycemia, 0% lows. -follows routinely with ophthalmology CV: Blood pressure today in the office is 120/82. He is on amlodipine 10 mg, hydralazine 50 mg t.i.d., hydrochlorothiazide 25 mg and olmesartan 40 mg daily.. [facility] Medical History (Updated 11/03/24 @ 19:36 by Alexis Oates MD) Glaucoma Dyspnea Standard chest x-ray abnormal Diabetes mellitus RBBB (right bundle branch block) Laryngospasm Chronic bronchitis Supplemental oxygen dependent Onychomycosis Hx of fracture of fibula GERD without esophagitis Asthma-COPD overlap syndrome Diastasis recti JOSÉ (obstructive sleep apnea) Bursitis Low back pain Claustrophobia Hemoptysis Anxiety Insomnia Migraine Pure hypercholesterolemia Benign essential hypertension Type 2 diabetes mellitus with hyperglycemia, without long-term current use of insulin Stasis edema of both lower extremities Lumbar degenerative disc disease Obesity (BMI 30-39.9) Chronic rhinitis Hiatal hernia Erectile dysfunction Surgical History History of bronchoscopy History of endoscopy Hx of colonoscopy Hx of cardiac catheterization History of nasal surgery History of carpal tunnel surgery Family History Father No problems noted. Mother Chronic kidney disease (CKD) Heart attack Other Mental health problem Social History Household Members: Spouse, Family and Children Household Members Other:: adult children Housing: House Are you a primary childcare center director to a significant other at home: No Do you presently have visiting nurse or other home services: Yes ([employer]) Alcohol intake: never Patient Tobacco Use Status: Never used Tobacco e-Cigarette/Vaping Use: Never Used Second Hand Smoke Exposure: Yes (employees smoked atwork) service: No Current occupational status: disabled Cognitive needs: No Hearing needs: No Vision needs: No Physical Exam Vital Signs: Last Vital Signs Pulse 90 11/11/24 13:07 BP 120/82 11/11/24 13:07 Pulse Ox 96 11/11/24 13:07 Oxygen Delivery Method Room Air 11/11/24 13:07 BMI result Body Mass Index 33.8 Const Orientation/consciousness: patient oriented x3 HEENT Ears: hearing grossly normal bilaterally Neck Thyroid: Thyroid normal Lymphatic: no lymphadenopathy noted Resp Auscultation: clear to auscultation bilaterally Cardio Rate: regular rate Rhythm: regular rhythm Heart sounds: S1 normal heart sound present and S2 normal heart sound present Skin General skin exam: no rashes or lesions noted Neuro General: patient oriented x3, gait normal and no focal motor deficits Results AMB Hemoglobin A1c AMB Hemoglobin A1c 7.5 % Last Edit by JAKI Hassan on 11/11/24 13:33 Results Reviewed Results Reviewed: Laboratory Last Values Glucose (Clinic) 180 mg/dL (60-115) H 11/11/24 13:16 Assessment & Plan Assessment & Plan (1) Type 2 diabetes, controlled, with peripheral neuropathy: Code(s): E11.42 - Type 2 diabetes mellitus with diabetic polyneuropathy Category: Medical Plan: We will switch to Ozempic. Discussed risks and benefits and adverse effects of this medication. Discontinue glipizide and Mounjaro Advised to be compliant with Lantus 10 units Advised to monitor blood sugars closely. Return in 1 month to be reassessed. Sooner if needed (2) Benign essential hypertension: Code(s): I10 - Essential (primary) hypertension Category: Medical Plan: WNL. Continue current Orders: Orders AMB Hemoglobin A1c Today E11.42 - Type 2 diabetes mellitus with diabetic polyneuropathy, Z13.9 - Encounter for screening, unspecified Medications: New semaglutide (Ozempic) 0.25 mg (0.368 mL) subcut QWEEK 3 mL 2RF Patient Instructions: stop glipizide start lantus 10 units daily stop mounjaro start ozempic 0.25 mg weekly Coding Level of Care Code Est Pt Level 4 (42617) Complex EM visit Add On G2211 Diagnoses Type 2 diabetes, controlled, with peripheral neuropathy E11.42 Benign essential hypertension I10
[2024-11-11 13:20] LABS: Glucose, Whole Blood 180 mg/dL (60-115)
--- OUTSIDE RECORDS SUMMARY | 2024-11-11 14:22 | XMS_ITS | Clinical Summary ---
Author Organization [facility] Address [address] [place] [address] [place] [id number] Phone Care Team Providers Care Residential Nurse Name Role Phone Oliverio Emerson MD Primary Care Provider [phone] Allergies Active Allergy Reactions Criticality Noted Date [...] Payer (Ef fective 1992-Present) Name:Cullen Keaton Member ID:[id number] Relation to Subscriber:Self Name:Keaton Cullen Subscriber ID:[id number] Payer ID:[id number] Group ID:Not on file Type:Medicare Address: [facility] [employer] [facility] [address] [phone] [facility] ONE CARE MEDICARE REPLACEMENT [place] [id number] MEDICARE PART A & B Member Subscriber Plan / Payer (Ef fective 1992-Present) Name:Subhash Keaton Member ID:[id number] Relation to Subscriber:Self Name:Keaton Cullen Subscriber ID:[id number] Payer ID:[id number] Group ID:Not on file Type:Medicare Address: [employer] [address] ONE CARE MEDICARE REPLACEMENT MEDICARE PART A & B CARE MEDICARE REPLACEMENT MEDICARE PART A & B ONE CARE MEDICARE REPLACEMENT [place] [facility] MEDICARE PART A & B CARE MEDICARE REPLACEMENT MEDICARE PART A & B ONE CARE MEDICARE REPLACEMENT MEDICARE PART A & B [id number] [place] [address] ONE CARE MEDICARE REPLACEMENT MEDICARE PART A & B CARE MEDICARE REPLACEMENT [place] [id number] MEDICARE PART A & B ONE CARE MEDICARE REPLACEMENT Care Teams Residential Nurse Relationship Specialty Start Date End Date Oliverio Emerson MD [address] [place] [address] [place] [id number] PCP - General Internal Medicine 11/15/21 Additional Source Comments The information contained in this document represents components of the legal health record. It is not the complete legal health record.[facility]
--- OUTSIDE RECORDS SUMMARY | 2024-11-11 14:22 | XMS_ITS | Clinical Summary ---
Author Organization [address] [facility] Address [address] [place] [address] Phone Care Team Providers Care Gravedigger Name Role Phone Oliverio Emerson MD Primary Care Provider [phone] Allergies Active Allergy Reactions Criticality Noted Date [...] 09/03/2024 10:45 AM EDT Consult Orthopedic Surgery [place] [address] [address] Mike Velasquez DPM Controlled type 2 diabetes [...] 10:00 AM EDT Office Visit Orthopedic Surgery [facility] [address] [address] Mike Velasquez DPM [address] [address] Health Maintenance Due Date Last Done Comments [...] to complete this topic Insurance MEDICAID - [place] [employer] [facility] MEDICARE Member Subscriber Plan / Payer (Ef fective 2018-Present) Name:KEATON REDDY Relation to Subscriber:Self Name:Keaton Reddy Payer ID:[id number] Group ID:[id number] Type:Not on file Address: [address] [place] [address] Care Teams Gravedigger Relationship Specialty Start Date End Date Oliverio Emerson MD [address] [place] [address] [address] [place], [place] PCP - General 02/21/22
== END 2024-11-11 13:37 | disposition home or self-care (01) ==
LOC: HO.ENCR 13:03
PROVIDERS: PCP Internal Medicine; Visit Provider Physician Assistant
DX: E11.42 Type 2 diabetes mellitus with diabetic polyneuropathy (principal); I10 Essential (primary) hypertension; Z13.9 Encounter for screening, unspecified

== ENCOUNTER → 2024-11-11 13:02 | Outpatient (BNVA) | payer OTHER, SELFPAY | PROVIDERS: PCP Internal Medicine; Visit Provider Physician Assistant | DX: E11.42 Type 2 diabetes mellitus with diabetic polyneuropathy (principal); I10 Essential (primary) hypertension; Z79.4 Long term (current) use of insulin | CPT/HCPCS: 82947; 83036; 99212 ==

== ENCOUNTER 2024-11-19 08:14 | Day surgery (SDC) | payer OTHER, SELFPAY ==
--- NOTE | 2024-11-15 12:11 | HO.ANESPROP2 ---
Documented by User: Jamila Burr NP 11/15/24 12:59 HPI - Anesthesia Eval Consult details Narrative: 59 yr old male for Upper Endo Dominguez and Dilation Right bundle branch block: follows with [facility] cards, at 08/2024 visit he reported chest discomfort, tightness in the upper chest with exertion and continual aching in left upper chest. He also has shortness of breath with exertion; Cardiac CTA was orderd by Zuri Dudley NP but not yet done. *Per tiger text with Zuri 11/15/24: symptoms can be explained by asthma/COPD, can proceed but with intermediate cardiac risk. Asthma/COPD overlapping: follows with [facility] pulmonology, exacerbations x2 requiring prednisone over last month JOSÉ: stopped CPAP, adved to use supplemental oxygen Type 2 DM: A1C 7.5% 10/2024 Anesthesia Pre-Procedure Meds Is the patient on any of the following meds?: GLP1/DPP4 PMFSH Active Problems Active Problems: All Active Problems (Updated 11/03/24 @ 19:36 by Alexis Oates MD) Glaucoma (Acute) Calcific tendinitis of right shoulder (Acute) Osteoarthritis of right shoulder (Acute) Abdominal pain (Acute) Dyspnea (Acute) Standard chest x-ray abnormal (Acute) Chest discomfort (Acute) Low energy (Acute) Painful respiration (Acute) Malnutrition (Acute) COVID-19 virus infection (Acute) Primary osteoarthritis, right shoulder (Acute) Type 2 diabetes, controlled, with peripheral neuropathy (Acute) Abdominal mass, right upper quadrant (Acute) History of adenomatous polyp of colon (Acute) Colon cancer screening (Acute) Upper respiratory tract infection (Acute) Annual physical exam (Acute) Left sided abdominal pain (Acute) Early satiety (Acute) Postprandial epigastric pain (Acute) SOB (shortness of breath) (Acute) Sensation of chest pressure (Acute) Dysphagia (Acute) Pain and swelling of right wrist (Acute) Facet arthropathy, lumbosacral (Acute) Chronic pain syndrome (Acute) Spondylolisthesis, lumbar region (Acute) Spondylosis of lumbar spine (Acute) Paresthesia of both feet (Acute) Insomnia (Acute) Hypertension (Acute) COVID-19 (Acute) Throat discomfort (Acute) Asthma exacerbation (Acute) Recurrent abdominal pain (Acute) Acute bronchitis (Acute) Laryngospasm (Acute) Asthma-COPD overlap syndrome (Acute) Preop cardiovascular exam (Acute) Major depressive disorder, recurrent (Acute) Left hip pain (Acute) Radicular pain of left lower extremity (Acute) Pain of left sacroiliac joint (Acute) Varicose vein of leg (Acute) Leg pain (Acute) NSVT (nonsustained ventricular tachycardia) (Acute) Heart palpitations (Acute) RBBB (Acute) Bronchitis (Acute) Asthma (Acute) Onychomycosis (Acute) Hx of fracture of fibula (Acute) GERD without esophagitis (Acute) Asthma-COPD overlap syndrome (Acute) Diastasis recti (Acute) JOSÉ (obstructive sleep apnea) (Acute) Hemoptysis (Acute) Anxiety (Acute) Insomnia (Acute) Migraine (Acute) Pure hypercholesterolemia (Acute) Benign essential hypertension (Acute) Stasis edema of both lower extremities (Acute) Lumbar degenerative disc disease (Acute) Obesity (BMI 30-39.9) (Acute) Chronic rhinitis (Acute) Hiatal hernia (Acute) Erectile dysfunction (Acute) Past Medical History Medical History Glaucoma Dyspnea Standard chest x-ray abnormal Diabetes mellitus RBBB (right bundle branch block) Laryngospasm Chronic bronchitis Supplemental oxygen dependent Onychomycosis Hx of fracture of fibula GERD without esophagitis Asthma-COPD overlap syndrome Diastasis recti JOSÉ (obstructive sleep apnea) Bursitis Low back pain Claustrophobia Hemoptysis Anxiety Insomnia Migraine Pure hypercholesterolemia Benign essential hypertension Type 2 diabetes mellitus with hyperglycemia, without long-term current use of insulin Stasis edema of both lower extremities Lumbar degenerative disc disease Obesity (BMI 30-39.9) Chronic rhinitis Hiatal hernia Erectile dysfunction Family History Family History Father No problems noted. Mother Chronic kidney disease (CKD) Heart attack Other Mental health problem Family history of problems with anesthesia: No Surgical History Surgical History History of bronchoscopy History of endoscopy Hx of colonoscopy Hx of cardiac catheterization History of nasal surgery History of carpal tunnel surgery History of Problems with Anesthesia: No Social History Social History Household Members: Spouse, Family and Children Household Members Other:: adult children Housing: House Are you a primary healthcare or medical to a significant other at home: No Do you presently have visiting nurse or other home services: No Alcohol intake: never Patient Tobacco Use Status: Never used Tobacco e-Cigarette/Vaping Use: Never Used Second Hand Smoke Exposure: Yes (employees smoked atwork) Have you been hit, kicked, punched, or otherwise hurt by someone within the past year? If so, by whom?: No Are you DNR?: No Advance Directives: No Advance Directives Information Provided: Yes Poor oral hygiene: No service: No Current occupational status: disabled Cognitive needs: No Hearing needs: No Vision needs: No Meds Allergies Allergy/AdvReac Type Severity Reaction Status Date / Time iodine (Iodine) Allergy Severe Anaphylaxis Verified 11/11/24 13:13 lisinopril Allergy Severe Rash Verified 11/11/24 13:13 metformin Allergy Severe diarrhea Verified 11/11/24 13:13 shellfish derived Allergy Severe Anaphylaxis Verified 11/11/24 13:13 meperidine (From Demerol) Allergy Mild RASH Verified 11/11/24 13:13 oxycodone (From Percocet) AdvReac Mild MOUTH Verified 11/11/24 13:13 DRYNESS,RASH Mercury Detox Allergy Severe Throat Uncoded 11/11/24 13:13 closing (charcoal) Home Medications ?Medication ?Instructions ?Recorded ?Confirmed ?Last Taken ?Type aspirin 81 mg tablet,delayed 81 mg PO DAILY 02/18/20 11/19/24 03/02/24 History release metoprolol succinate 50 mg 50 mg PO DAILY 08/19/24 11/19/24 Unknown History tablet,extended release 24 hr Exam Narrative Narrative: EKG 10/2024 Vent. Rate : 73 BPM Atrial Rate : 73 BPM P-R Int : 202 ms QRS Dur : 144 ms QT Int : 420 ms P-R-T Axes : 3 -19 -13 degrees QTcB Int : 462 ms Normal sinus rhythm Right bundle branch block Abnormal ECG When compared with ECG of 11-Oct-2024 03:51, No significant change was found Stress echo 07/2024 Findings : At rest images are of good quality. There is normal LV systolic function with no regional wall motion abnormalities. Post exercise images are of poor quality. Regional wal motion abnormalities cannot be commented upon. Conclusion : Stress echo is non diagnostic EKG 10/2024 Vent. Rate : 73 BPM Atrial Rate : 73 BPM P-R Int : 202 ms QRS Dur : 144 ms QT Int : 420 ms P-R-T Axes : 3 -19 -13 degrees QTcB Int : 462 ms Normal sinus rhythm Right bundle branch block Abnormal ECG When compared with ECG of 11-Oct-2024 03:51, No significant change was found Assessment and Plan Final Anesthetic Review Family History of Problems with Anesthesia: No History of Problems with Anesthesia: No Documented by User: Kimo Cervantes MD 11/19/24 10:01 [facility] Past Medical History Medical History Glaucoma Dyspnea Standard chest x-ray abnormal Diabetes mellitus RBBB (right bundle branch block) Laryngospasm Chronic bronchitis Supplemental oxygen dependent Onychomycosis Hx of fracture of fibula GERD without esophagitis Asthma-COPD overlap syndrome Diastasis recti JOSÉ (obstructive sleep apnea) Bursitis Low back pain Claustrophobia Hemoptysis Anxiety Insomnia Migraine Pure hypercholesterolemia Benign essential hypertension Type 2 diabetes mellitus with hyperglycemia, without long-term current use of insulin Stasis edema of both lower extremities Lumbar degenerative disc disease Obesity (BMI 30-39.9) Chronic rhinitis Hiatal hernia Erectile dysfunction Family History Family History Father No problems noted. Mother Chronic kidney disease (CKD) Heart attack Other Mental health problem Surgical History Surgical History History of bronchoscopy History of endoscopy Hx of colonoscopy Hx of cardiac catheterization History of nasal surgery History of carpal tunnel surgery Social History Social History Household Members: Spouse, Family and Children Household Members Other:: adult children Housing: House Are you a primary healthcare or medical to a significant other at home: No Do you presently have visiting nurse or other home services: No Alcohol intake: never Patient Tobacco Use Status: Never used Tobacco e-Cigarette/Vaping Use: Never Used Second Hand Smoke Exposure: Yes (employees smoked atwork) Have you been hit, kicked, punched, or otherwise hurt by someone within the past year? If so, by whom?: No Are you DNR?: No Advance Directives: No Advance Directives Information Provided: Yes Poor oral hygiene: No service: No Current occupational status: disabled Cognitive needs: No Hearing needs: No Vision needs: No Meds Allergies Allergy/AdvReac Type Severity Reaction Status Date / Time iodine (Iodine) Allergy Severe Anaphylaxis Verified 11/11/24 13:13 lisinopril Allergy Severe Rash Verified 11/11/24 13:13 metformin Allergy Severe diarrhea Verified 11/11/24 13:13 shellfish derived Allergy Severe Anaphylaxis Verified 11/11/24 13:13 meperidine (From Demerol) Allergy Mild RASH Verified 11/11/24 13:13 oxycodone (From Percocet) AdvReac Mild MOUTH Verified 11/11/24 13:13 DRYNESS,RASH Mercury Detox Allergy Severe Throat Uncoded 11/11/24 13:13 closing (charcoal) Home Medications ?Medication ?Instructions ?Recorded ?Confirmed ?Last Taken ?Type aspirin 81 mg tablet,delayed 81 mg PO DAILY 02/18/20 11/19/24 03/02/24 History release metoprolol succinate 50 mg 50 mg PO DAILY 08/19/24 11/19/24 Unknown History tablet,extended release 24 hr Exam Airway Mallampati Class: II TM Dist: <=3cm Neck ROM: Full Loose/Missing/Broken Teeth: No Heart: see above. Lungs: ok Assessment and Plan Assessment Anesthesia Assessment: Anesthesia Plan Discussed and Chart Reviewed Final Anesthetic Review NPO: Yes ASA Class: III and IV Final Preanesthetic Review: No Changes in Pt Med Stat, Meds/Allgs Chart Reviewed, Consent Obtained/Reviewed and Anes Risks/Benef Reviewed Patient Risk: High Procedure Risk: Intermediate Anesthetic Plan Anesthetic Plan: Agree w/ Assess. and Plan and TIVA Disposition: Standard PACU
[2024-11-19 09:03] VITALS: BP 170/97; PULSE 73; RESP 18; TEMP 36.8; O2SAT 98
[2024-11-19 09:09] VITALS: BMI 33.9
[2024-11-19 09:16] LABS: Glucose, Whole Blood 131 mg/dL (60-115)
[2024-11-19 09:26] VITALS: BP 157/98
[2024-11-19] MEDS: Lactated Ringers 1,000 ML 100 ML IVCONT (09:35)
--- NOTE | 2024-11-19 09:43 | MHC.SHP ---
Pre-Procedural Eval Section A - 24 Hr Update-Section A only Date of Service: 11/19/24 Section B - Complete if H&P > 30 days Chief Complaint: dysphagia Details of Present Illness: dysphagia Relevant Family History (Specify if Yes): No Relevant Social History: None Present Medications: see Short Stay Collaborative assessment Medical History: Significant History (Dyspnea Standard chest x-ray abnormal Diabetes mellitus RBBB (right bundle branch block) Laryngospasm Chronic bronchitis Supplemental oxygen dependent Onychomycosis Hx of fracture of fibula GERD without esophagitis Asthma-COPD overlap syndrome Diastasis recti JOSÉ (obstructive sleep apnea) Bursitis L) History of Previous Operations: Relevant previous surgery/procedure and date(s) ( History of bronchoscopy History of endoscopy Hx of colonoscopy Hx of cardiac catheterization History of nasal surgery History of carpal tunnel surgery) Allergies: Allergies Allergy/AdvReac Type Severity Reaction Status Date / Time iodine (Iodine) Allergy Severe Anaphylaxis Verified 11/11/24 13:13 lisinopril Allergy Severe Rash Verified 11/11/24 13:13 metformin Allergy Severe diarrhea Verified 11/11/24 13:13 shellfish derived Allergy Severe Anaphylaxis Verified 11/11/24 13:13 meperidine (From Demerol) Allergy Mild RASH Verified 11/11/24 13:13 oxycodone (From Percocet) AdvReac Mild MOUTH Verified 11/11/24 13:13 DRYNESS,RASH Mercury Detox Allergy Severe Throat Uncoded 11/11/24 13:13 closing (charcoal) Review of Systems Sugical H&P ROS: Negative: Constitution, Cardiovascular, Respiratory, Neurological, Psychiatric, Hem-Onc, Allergic/Immunologic, Gastrointestinal, Genitourinary, Musculoskeletal, Integumentary, Endocrine and Eyes/Ears/Nose/Throat Exam Surgical H&P Exam: Normal: HEENT, Normal: Heart, Normal: Lungs, Normal: Extremities, Normal: Abdomen, Normal: Skin and Normal: Neurological Plan Diagnosis/Plan: Unchanged I have reviewed the history and physical and performed a pertinent physical examination on my patient. No changes have occurred unless specified. Time Spent With Patient Time: Total time managing care of this patient today ____ minutes.
--- NOTE | 2024-11-19 10:23 | W.PM.OPN ---
Operative Note Operative Note Date of Service: 11/19/24 Narrative: Procedure Description: EGD Indication: GERD and dysphagia Anesthesia: MAC FLEXIBLE TRANSORAL UPPER GASTROINTESTINAL ENDOSCOPY UPPER ENDOSCOPY Consent: Indications for the procedure and potential complications of bleeding, perforation, reaction to medications and missed diagnosis were discussed with the patient and informed consent was obtained. Instrument: Olympus GIF H 190 J mid size upper endoscope Monitoring: Vital signs and clinical assessment, continuous EKG monitoring, Pulse oximetry, Carbon Dioxide monitoring and blood pressure monitoring were done throughout the procedure. Procedure: The patient was placed in the left lateral decubitis position and pre-procedure medications were administered and a bite block was placed. The endoscope was inserted into the mouth and advanced under direct vision to the third part of duodenum. A careful inspection was made as the upper endoscope was withdrawn including a retroflexed examination of the proximal stomach; Findings and interventions are described below. Findings: Larynx:normal Esophagus: GE junction at 40 cm, diaphragm hiatus at 40 cm, normal mucosa, savary dilation done with 18 mm dilator, using wire, no tear seen. CLAUDIO then deployed at 34 cm. Stomach: Normal, reduced motility, Grade 2 flap valve on retroflexed examination of the cardia. Duodenum: Normal bulb and descending duodenum, Intervention: wire guided dilation of esophagus and CLAUDIO placement Impression/Findings: GERD PLAN: await CLAUDIO results --initial pH 5.7 GERD precautions
[2024-11-19 10:25] VITALS: BP 139/87; PULSE 86; RESP 16; TEMP 36.4; O2SAT 95
[2024-11-19 10:55] VITALS: BP 164/97; PULSE 73; RESP 16; TEMP 36.9; O2SAT 97
== END 2024-11-19 11:20 | disposition home or self-care (01) ==
PROVIDERS: PCP Internal Medicine; Visit Provider Internal Medicine Gastroenterology
PROC: (CPT 43248; principal; 2024-11-19 10:30)
DX: R13.10 Dysphagia, unspecified (principal); R68.81 Early satiety; J38.5 Laryngeal spasm; K21.9 Gastro-esophageal reflux disease without esophagitis; M62.08 Separation of muscle (nontraumatic), other site; R06.00 Dyspnea, unspecified; I10 Essential (primary) hypertension; E11.9 Type 2 diabetes mellitus without complications; I45.10 Unspecified right bundle-branch block; G47.33 Obstructive sleep apnea (adult) (pediatric); J42 Unspecified chronic bronchitis; Z99.81 Dependence on supplemental oxygen; Z79.82 Long term (current) use of aspirin; Z79.899 Other long term (current) drug therapy; Z88.5 Allergy status to narcotic agent; Z88.8 Allergy status to other drugs, medicaments and biological substances; Z91.041 Radiographic dye allergy status; Z98.890 Other specified postprocedural states
CPT/HCPCS: 43248; 82947; C1769; J2003; J2704

== ENCOUNTER → 2024-11-19 08:14 | Outpatient (BNV) | payer OTHER, SELFPAY | PROVIDERS: PCP Internal Medicine; Visit Provider Internal Medicine Gastroenterology | DX: K21.9 Gastro-esophageal reflux disease without esophagitis (principal); R13.10 Dysphagia, unspecified | CPT/HCPCS: 43248 ==

== ENCOUNTER 2024-11-27 15:39 | Outpatient (REF) | payer OTHER, SELFPAY ==
[2024-11-27 16:25] LABS: MANUAL DIFF FLAG NO
[2024-11-27 17:16] LABS: Hematocrit 46.0 % (42.0-52.0); Hemoglobin 15.3 g/dl (14.0-18.0); Imm Gran Abs Auto 0.02 X10*3/uL (0.00-0.03); Imm Gran Pct Auto 0.3 % (0.0-0.4); Lymphocytes Absolute Auto 1.3 X10*3/uL (1.2-4.9); Mean Corpuscular HGB Conc 33.3 g/dl (31.0-36.0); Mean Corpuscular Hemoglobin 29.4 pg (27.0-33.0); Mean Corpuscular Volume 88.5 fL (80.0-98.0); NRBC Abs Auto 0.000 X10*3/uL (0.0-0.012); NRBC Pct Auto 0.0 /100WBC (0.0-0.2); Platelet Count 268 X10*3/uL (160-400); Red Blood Count 5.20 X10*6/uL (4.60-5.80); White Blood Count 5.9 X10*3/uL (4.8-10.8)
[2024-11-27 17:23] LABS: Hemoglobin A1C 226.0348 umol/L; Total Hemoglobin (HGBA1C) 3890.4869 umol/L
[2024-11-27 17:45] LABS: Anion Gap 12 (12-20); Blood Urea Nitrogen 14 mg/dL (9-16); Calcium 9.0 mg/dL (8.4-10.2); Carbon Dioxide 27 mmol/L (22-29); Chloride 106 mmol/L (96-108); Estimated Glomerular Filt Rate > 60; Iron 93 mcg/dL (45-160); Percent Iron Saturation 34 % (15-50); Potassium 4.2 mmol/L (3.3-5.1); Sodium 141 mmol/L (135-145); Total Iron Binding Capacity 271 mcg/dL (228-428); Unsaturated Iron Binding 178 ug/dL
[2024-11-27 17:47] LABS: Anion Gap 11 (12-20); Blood Urea Nitrogen 14 mg/dL (9-16); Calcium 9.0 mg/dL (8.4-10.2); Carbon Dioxide 28 mmol/L (22-29); Chloride 106 mmol/L (96-108); Estimated Glomerular Filt Rate > 60; Potassium 4.2 mmol/L (3.3-5.1); Sodium 141 mmol/L (135-145)
[2024-11-27 17:48] LABS: Alanine Aminotransferase 27 U/L (0-40); Albumin Level 4.4 g/dL (3.5-5.0); Alkaline Phosphatase 66 U/L (39-117); Anion Gap 14 (12-20); Aspartate Amino Transferase 22 U/L (5-37); Blood Urea Nitrogen 14 mg/dL (9-16); Calcium 9.0 mg/dL (8.4-10.2); Carbon Dioxide 26 mmol/L (22-29); Chloride 105 mmol/L (96-108); Cholesterol 204 mg/dL (<200); Estimated Glomerular Filt Rate > 60; HDL Cholesterol 36 mg/dL (>40); Potassium 4.3 mmol/L (3.3-5.1); Sodium 141 mmol/L (135-145); Total Protein 7.0 g/dL (6.5-8.0); Triglycerides 114 mg/dL (<150)
[2024-11-27 18:03] LABS: Ferritin 160 ng/mL (20-250)
[2024-11-27 18:12] LABS: Appearance Urine Clear; Glucose Urine UA Negative (Negative); PH 6.0 (5.0-9.0); Specific Gravity - Urine 1.025 (1.005-1.025); UMIC TRIGGER UACC YES
[2024-11-27 18:17] LABS: UACC Culture Trigger YES
[2024-11-27 18:18] LABS: Folate 10.5 ng/mL (> or = 4.0); Vitamin B12 393 pg/mL (200-900)
--- OUTSIDE RECORDS SUMMARY | 2024-11-27 18:28 | XMS_ITS | Clinical Summary ---
Author Organization 175 [facility] Address 175 [place] [address] Phone Care Team Providers Care Senior Web Designer Name Role Phone Oliverio Emerson MD Primary [...] 09/03/2024 10:45 AM EDT Consult Orthopedic Surgery [place] [address] [address] Mike Velasquez DPM Controlled type 2 diabetes [...] 10:00 AM EDT Office Visit Orthopedic Surgery [facility] [address] [address] Mike Velasquez DPM [address] [address] Health Maintenance Due Date Last Done Comments [...] 04/14/2023 Social Influencers of Health Screening 04/14/2023 Depression Screening 03/20/2024 RSV Immunization Adult Patients (1 - Risk 60-74 years 1-dose series) 2024 Diabetes: Annual Urine Albumin-Creatinine Ratio (uACR) 05/30/2024 Diabetes: Blood Sugar Control Test (HGBA1C) 05/30/2024 COVID-19 Vaccine ( season) 2024 Influenza Vaccine (#1) 2024 , 02/09/2021, 01/10/2019, [...] to complete this topic Insurance MED[place]ID - [place] [employer] MEDICARE Member Subscriber Plan / Payer (Ef fective 2018-Present) Name:KEATON REDDY Relation to Subscriber:Self Name:Keaton Reddy Payer ID:[id number] Group ID:[id number] Type:Not on file Address: [address] [place] [address] Care Teams Senior Web Designer Relationship Specialty Start Date End Date Oliverio Emerson MD [address] [place] [address] [address] [place], [place] PCP - General 02/21/22
--- OUTSIDE RECORDS SUMMARY | 2024-11-27 18:28 | XMS_ITS | Clinical Summary ---
Author Organization [facility] Address [address] [place] [address] [place] [id number] Phone Care Team Providers Care Ecological Modeler Name Role Phone Oliverio Emerson MD Primary Care Provider [phone] Allergies Active Allergy Reactions Criticality Noted Date [...] Payer (Ef fective 1992-Present) Name:Cullen Keaton Member ID:[id number] Relation to Subscriber:Self Name:Keaton Cullen Subscriber ID:[id number] Payer ID:[id number] Group ID:Not on file Type:Medicare Address: [facility] [employer] [facility] [address] [address] [facility] ONE CARE MEDICARE REPLACEMENT [place] [id number] MEDICARE PART A & B Member Subscriber Plan / Payer (Ef fective 1992-Present) Name:Subhash Keaton Member ID:[id number] Relation to Subscriber:Self Name:Keaton Cullen Subscriber ID:[id number] Payer ID:[id number] Group ID:Not on file Type:Medicare Address: Level [address] ONE CARE MEDICARE REPLACEMENT MEDICARE PART A & B CARE MEDICARE REPLACEMENT MEDICARE PART A & B ONE CARE MEDICARE REPLACEMENT [place] [facility] MEDICARE PART A & B CARE MEDICARE REPLACEMENT MEDICARE PART A & B ONE CARE MEDICARE REPLACEMENT MEDICARE PART A & B [id number] [place] [address] ONE CARE MEDICARE REPLACEMENT MEDICARE PART A & B CARE MEDICARE REPLACEMENT [place] [id number] MEDICARE PART A & B ONE CARE MEDICARE REPLACEMENT Care Teams Ecological Modeler Relationship Specialty Start Date End Date Oliverio Emerson MD [address] [place] [address] [place] [address] PCP - General Internal Medicine 11/15/21 Additional Source Comments The information contained in this document represents components of the legal health record. It is not the complete legal health record.[facility]
[2024-11-27 18:34] LABS: Microalbum/Creatinine Ratio Ur 2.7 ug/mg cr (<30)
[2024-12-01 15:43] LABS: Testosterone, Free 63.4 pg/mL (35.0-155.0)
== END 2024-11-27 15:40 | disposition home or self-care (01) ==
LOC: HO.LAB 15:39
PROVIDERS: Hospitalist; Physician Assistant; PCP Internal Medicine; Visit Provider Internal Medicine Cardiovascular Disease
DX: I10 Essential (primary) hypertension (principal); E11.42 Type 2 diabetes mellitus with diabetic polyneuropathy; E78.00 Pure hypercholesterolemia, unspecified; E53.8 Deficiency of other specified B group vitamins; E55.9 Vitamin D deficiency, unspecified; K44.9 Diaphragmatic hernia without obstruction or gangrene; D64.9 Anemia, unspecified; R00.2 Palpitations; R53.83 Other fatigue; R07.89 Other chest pain; R06.00 Dyspnea, unspecified
CPT/HCPCS: 36415; 80048; 80053; 80061; 81001; 82043; 82180; 82306; 82570; 82607; 82728; 82746; 82785; 83036; 83540; 84402; 84403; 84443; 85025; 87086

== ENCOUNTER 2024-11-28 11:06 | Emergency (ER) | payer OTHER, SELFPAY ==
[2024-11-28] VITALS (7 sets, daily range): BP systolic 121–179; BP diastolic 68–108; PULSE 60–94; RESP 16–20; TEMP 36.3–37.2; O2SAT 85–100; BMI 33.4
--- NOTE | ~2024-11-28 | CT_ITS ---
CLINICAL HISTORY: Diverticulitis? --- Additional Notes or Special Instructions: abd pain r o diverticulitis CT abdomen and pelvis without contrast Comparison: CT/REG/SR - CT ABDOMEN WITHOUT IV CONTRAST - 08/25/23 15:53 EDT Findings: Adjacent to the esophagus in the posterior mediastinum there is a metallic structure, possibly a surgical clip or embolization coil. No hydronephrosis. Kidneys are normal in size. The spleen, adrenal glands, pancreas, gallbladder and liver are normal. No bowel obstruction, pneumoperitoneum, or pneumatosis. No bowel wall thickening. No evidence of diverticulitis. No significant diverticular disease. Moderate fecal loading in the colon. Small fat containing umbilical hernia. Urinary bladder is decompressed. The prostate gland is enlarged. No ascites. Normal appendix. Bilateral L4 pars defects with grade 1 spondylolisthesis of L4 on L5. IMPRESSION: No acute findings. This document has been electronically signed by: Ren Kilpatrick MD on 11/28/2024 19:39:13
--- NOTE | ~2024-11-28 | XR_ITS ---
EXAMINATION: XR CHEST 2 VIEWS HISTORY: chest tight, sob COMPARISON: Comparison is made with the prior examination dated 10/11/2024. FINDINGS: PA and lateral views of the chest are submitted. The lungs are expanded and clear. There is no pleural effusion, pneumothorax, or pulmonary vascular congestion. The heart is normal in size. A metallic device projects in the region of the left atrium. There is degenerative disc disease of the spine. XR/XR chest 2V IMPRESSION: No acute cardiopulmonary abnormality. A metallic device is seen in the region of the left atrium. Clinical correlation is recommended. Electronically signed by: Oneal Elizabeth MD 11/28/2024 12:22 PM EDT
--- NOTE | ~2024-11-28 | CT_ITS ---
CLINICAL HISTORY: Abnormal chest x-ray --- Additional Notes or Special Instructions: abn cxr ? fb CT chest without contrast Comparison: CR/SR - XR CHEST 2 VIEWS - 11/28/24 12:[address]/REG/SR - CT CHEST WITHOUT IV CONTRAST - 09/26/24 13:03 EDT Findings: The heart is normal size. Coronary artery calcifications are present. There is a metallic structure within the esophageal lumen measuring 2.8 x 0.5 x 0.5 cm. It is located within the mid to distal esophagus and may be a small electronic device based on correlation with x-ray. This is a new finding in comparison to 09/26/2024. No consolidation or effusion. The upper abdomen is unremarkable. Degenerative changes of the thoracic spine. IMPRESSION: 1. There is a metallic electronic device located within the mid to distal esophageal lumen, suspicious for an ingested foreign body. This document has been electronically signed by: Ren Kilpatrick MD on 11/28/2024 19:46:29
--- NOTE | 2024-11-28 11:29 | ED.GENADULT ---
HPI - General Adult General Chief complaint: Upper Respiratory Symptoms Stated complaint: resp issues Time Seen by Provider: 11/28/24 16:51 Source: patient Mode of arrival: ambulatory Limitations: no limitations History of Present Illness ED Provider: billy galloway HPI narrative: 59-year-old male who is here today sore shortness of breath he states radiation of burning from his epigastric into his chest into his throat. Using his omeprazole at home feels like his acid reflux. States that he had an endoscopy 2 weeks ago he had a small capsule camera placed. They said he would pass it in about a week. He now feels like he can not lay down without burning in his chest. Has not slept all night. Denies any fevers or chills. Has diffuse abdominal pain greater in his left lower quadrant. History of asthma using his inhalers but denies any URI symptoms cough or fever. Related Data Home Medications ?Medication ?Instructions ?Recorded ?Confirmed aspirin 81 mg tablet,delayed 81 mg PO DAILY 02/18/20 11/19/24 release metoprolol succinate 50 mg 50 mg PO DAILY 08/19/24 11/19/24 tablet,extended release 24 hr Previous Rx's ?Medication ?Instructions ?Recorded latanoprost 0.005 % eye drops 1 drp ophthalmic (eye) DAILY #7.5 11/24/21 mL epinephrine 0.3 mg/0.3 mL 0.3 mg (0.3 mL) IM Q4H PRN 05/27/22 injection, auto-injector (EpiPen anaphylaxis #2 ea 2-Dread) albuterol sulfate 2.5 mg/3 mL 2.5 mg (3 mL) continuous 12/14/22 (0.083 %) solution for nebulization nebulization QID PRN shortness of breath or wheezing 30 days #480 mL tamsulosin 0.4 mg capsule 0.4 mg PO DAILY 90 days #90 caps 06/21/23 melatonin 5 mg tablet 5 mg PO BEDTIME PRN sleep #30 tabs 01/24/24 zolpidem 10 mg tablet 10 mg PO BEDTIME PRN insomnia 30 05/01/24 days #30 tabs amlodipine 5 mg tablet 5 mg PO DAILY #90 tabs 06/21/24 clotrimazole 1 % topical cream 1 appl topical BID 4 weeks #45 07/19/24 grams prednisone 10 mg tablet 10 mg PO DIRECTED 8 days #20 07/30/24 tabs diclofenac sodium 1 % topical gel 4 g topical QID PRN pain #100 grams 08/05/24 (Voltaren Arthritis Pain) diphenhydramine HCl 25 mg capsule 25 mg PO .COMPLEX allergy 08/20/24 (Benadryl) prophylaxis #3 caps prednisone 20 mg tablet 20 mg PO .COMPLEX #3 tabs 08/20/24 hydrochlorothiazide 25 mg tablet 25 mg PO DAILY #90 tabs 08/28/24 olmesartan 40 mg tablet 40 mg PO DAILY #90 tabs 08/28/24 hydralazine 50 mg tablet 50 mg PO TID 90 days #270 tabs 09/25/24 albuterol sulfate 90 mcg/actuation 2 puff PO QID PRN shortness of 10/11/24 aerosol inhaler (Ventolin HFA) breath or wheezing 90 days #3 multiple units famotidine 40 mg tablet 40 mg PO BID PRN abdominal pain 10/11/24 #60 tabs blood sugar diagnostic (FreeStyle #100 strips 10/17/24 Lite Strips) montelukast 10 mg tablet 10 mg PO QPM #90 tabs 10/17/24 blood-glucose sensor (FreeStyle #1 ea 10/21/24 Lola 3 Plus Sensor device) insulin glargine 100 unit/mL (3 10 unit (0.1 mL) subcut QPM #15 mL 10/21/24 mL) subcutaneous pen (Lantus Solostar U-100 Insulin) lorazepam 0.5 mg tablet See Rx Instructions .Route 10/21/24 .COMPLEX PRN anxiety 30 days #60 tabs omeprazole 40 mg capsule,delayed 40 mg PO DAILY #30 caps 10/22/24 release CANE #1 ea 10/31/24 COMPRESSION STOCKINGS (medium #3 ea 10/31/24 compression - 20 to 30 mm); Knee high fluticasone furoate 200 1 inh inhalation DAILY 30 days #60 10/31/24 mcg-vilanterol 25 mcg/dose ea inhalation powder (Breo Ellipta) fluticasone propionate 50 2 spray intranasal DAILY PRN nasal 10/31/24 mcg/actuation nasal congestion #16 grams spray,suspension (Flonase Allergy Relief) nebulizer and compressor (Portable #1 ea 10/31/24 Nebulizer System) budesonide 0.5 mg/2 mL suspension 0.5 mg (2 mL) inhalation BID 30 11/07/24 for nebulization days #120 mL cholecalciferol (vitamin D3) 25 25 mcg PO DAILY #30 caps 11/07/24 mcg (1,000 unit) capsule (Vitamin D3) semaglutide 0.25 mg or 0.5 mg (2 0.25 mg (0.368 mL) subcut QWEEK #3 11/11/24 mg/3 mL) subcutaneous pen injector mL (Ozempic) azithromycin 250 mg tablet 250 mg PO 3XW 28 days #12 tabs 11/20/24 aheajezks-zxtimb-qccyuvlx-scop 5 ml PO BID PRN indigestion #120 mL 11/28/24 16.2 mg-0.1037 mg-0.0194 mg/5 mL elixir () Allergies Allergy/AdvReac Type Severity Reaction Status Date / Time iodine (Iodine) Allergy Severe Anaphylaxis Verified 11/28/24 11:28 lisinopril Allergy Severe Rash Verified 11/28/24 11:28 metformin Allergy Severe diarrhea Verified 11/28/24 11:28 shellfish derived Allergy Severe Anaphylaxis Verified 11/28/24 11:28 meperidine (From Demerol) Allergy Mild RASH Verified 11/28/24 11:28 oxycodone (From Percocet) AdvReac Mild MOUTH Verified 11/28/24 11:28 DRYNESS,RASH Mercury Detox Allergy Severe Throat Uncoded 11/11/24 13:13 closing (charcoal) Review of Systems Review of Systems: Constitutional : No Fever, No Chills ENT/Mouth : No sore throat, No Rhinorrhea Eyes: No Eye Pain, No Swelling, No Redness Cardiovascular : No Chest Pain, + SOB Respiratory : No Cough, No Sputum Gastrointestinal : No Nausea, No Vomiting, No Diarrhea, + abdominal Pain Genitourinary : No Dysuria, No Hematuria Musculoskeletal : No joint pain, No Myalgias, No Joint Swelling Skin : No Skin Lesions, positive skin rash Neuro : No Weakness, No Numbness, No Headache All other systems reviewed and are negative [facility] Past Medical History Medical History (Updated 11/28/24 @ 20:42 by Billy Hynds-Mikhail, PA-C) Glaucoma Dyspnea Standard chest x-ray abnormal Diabetes mellitus RBBB (right bundle branch block) Laryngospasm Chronic bronchitis Supplemental oxygen dependent Onychomycosis Hx of fracture of fibula GERD without esophagitis Asthma-COPD overlap syndrome Diastasis recti JOSÉ (obstructive sleep apnea) Bursitis Low back pain Claustrophobia Hemoptysis Anxiety Insomnia Migraine Pure hypercholesterolemia Benign essential hypertension Type 2 diabetes mellitus with hyperglycemia, without long-term current use of insulin Stasis edema of both lower extremities Lumbar degenerative disc disease Obesity (BMI 30-39.9) Chronic rhinitis Hiatal hernia Erectile dysfunction Surgical History History of bronchoscopy History of endoscopy Hx of colonoscopy Hx of cardiac catheterization History of nasal surgery History of carpal tunnel surgery Family History Family History Father No problems noted. Mother Chronic kidney disease (CKD) Heart attack Other Mental health problem Social History Social History Household Members: Spouse, Family and Children Household Members Other:: adult children Housing: House Are you a primary physician assistant primary care to a significant other at home: No Do you presently have visiting nurse or other home services: No Alcohol intake: never Patient Tobacco Use Status: Never used Tobacco e-Cigarette/Vaping Use: Never Used Second Hand Smoke Exposure: Yes (employees smoked atwork) Advance Directives: No Advance Directives Information Provided: Yes service: No Current occupational status: disabled Cognitive needs: No Hearing needs: No Vision needs: No Physical Exam ED Exam Exam: Appearance: Alert. Oriented X3. No acute distress. Eyes: Pupils equal, round and reactive to light. ENT: Pharynx normal. Neck: Normal inspection. Neck supple. CVS: Normal heart rate and rhythm. Pulses normal. Respiratory: No respiratory distress. Breath sounds normal. Abdomen: Soft and tender to palpation. No peritoneal signs noted. No rebound no guarding. Mostly tender left lower quadrant. normal BS Skin: Skin warm and dry. Normal skin color. Extremities: No lower extremity edema. No calf ttp FROM of extemities Neuro: Oriented X 3. Vital Signs: Vital Signs - 24 hr 11/28/24 11:28 11/28/24 18:00 11/28/24 18:00 Temperature 97.4 F 98.1 F 99 F Pulse Rate 83 73 94 Respiratory Rate 18 16 20 Blood Pressure 179/102 H 169/108 H 121/68 Pulse Oximetry 97 99 85 L Oxygen Delivery Method Room Air Room Air Room Air 11/28/24 18:05 11/28/24 18:46 11/28/24 20:00 Temperature 98.1 F Pulse Rate 67 Respiratory Rate 16 Blood Pressure 174/104 H 169/97 H 166/84 H Pulse Oximetry 99 Oxygen Delivery Method Room Air BMI result Body Mass Index 33.4 Course Course Course Narrative: This is a Rapid Medical Examination (RME) performed by Sue Fletcher PA-C in triage. Full HPI, ROS, assessment and treatment plan per primary provider in the Main ED. Hx: 59 yo M reports chest pain x2-3 days. now having chest tightness and difficulty breathing since 0900 today. hx asthma, using breathing treatments at home w/o relief. no cough. PE/vitals: lung sounds diminished, no wheezes/ rhonchi. Plan: labs, ekg, cxr Medications Administered Discontinued Medications Generic Name Dose Route Start Last Admin Trade Name Freq PRN Reason Stop Dose Admin Al Hydroxide/Mg Hydroxide 30 ml 11/28/24 17:08 11/28/24 17:42 Magnesium Hydrox/Alum Hydrox 30 Ml Oral.Susp PO 11/28/24 17:09 30 ml ONCE ONE Administration Belladonna Alkaloids/Phenobarbital 10 ml 11/28/24 17:08 11/28/24 17:43 Phenobarb/Hyoscy/Atropine/Scop 10 Ml Elixir PO 11/28/24 17:09 10 ml ONCE ONE Administration Lidocaine HCl 15 ml 11/28/24 17:08 11/28/24 17:42 Lidocaine Hcl Viscous 2 % 15 Ml Solution MUCOUS MEM 11/28/24 17:09 15 ml ONCE ONE Administration Medical Decision Making Medical Decision Making MDM Narrative: 59-year-old male here today shortness of breath chest tightening worse when he lays down this morning. Feels radiation of acid reflux took his metoprolol this morning he has been using an inhaler without any relief. He does not really feel like he is short of breath he feels like he has burning in his chest. Denies any fevers or any chills or any URI symptoms. Patient's labs are unremarkable. Patient received Maalox and viscous lidocaine I consulted with GI. Plan is nothing to do at this time. No appropriate intervention. Patient to follow up outpatient with GI. We will prescribed a maalox as needed and also take your omeprazole daily. Differential Diagnosis Diverticulitis Gerd Obstruction Pneumonia Lab Data 11/28/24 11:50 11/28/24 11:50 Labs: Lab Results 11/28/24 Range/Units 11:50 WBC 6.6 (4.8-10.8) X10*3/uL RBC 4.89 (4.60-5.80) X10*6/uL Hgb 14.6 (14.0-18.0) g/dl Hct 42.7 (42.0-52.0) % MCV 87.3 (80.0-98.0) fL MCH 29.9 (27.0-33.0) pg MCHC 34.2 (31.0-36.0) g/dl RDW 12.0 (11.0-16.0) % Plt Count 264 (160-400) X10*3/uL MPV 10.5 (9.4-12.4) fL Immature Gran % (Auto) 0.5 H (0.0-0.4) % Neut % (Auto) 63.5 (45-73) % Lymph % (Auto) 25.0 (20-40) % Gaines % (Auto) 7.8 (2-11) % Eos % (Auto) 2.4 (0-4) % Baso % (Auto) 0.8 (0-2) % Lymph # (Auto) 1.7 (1.2-4.9) X10*3/uL Gaines # (Auto) 0.5 (0.1-1.2) X10*3/uL Eos # (Auto) 0.2 (0.0-0.4) X10*3/uL Baso # (Auto) 0.1 (0.0-0.2) X10*3/uL Abs Immat Gran (auto) 0.03 (0.00-0.03) X10*3/uL Absolute Neuts (auto) 4.2 (2.0-8.3) x10*3/uL Absolute Nucleated RBC 0.000 (0.0-0.012) X10*3/uL Nucleated RBC % (auto) 0.0 (0.0-0.2) /100WBC Sodium 139 (135-145) mmol/L Potassium 4.4 (3.3-5.1) mmol/L Chloride 105 (96-108) mmol/L Carbon Dioxide 28 (22-29) mmol/L Anion Gap 10 L (12-20) BUN 17 H (9-16) mg/dL Creatinine 1.18 (0.5-1.4) mg/dL Estim Creat Clear Calc 76.2 Estimated GFR > 60 Random Glucose 170 H (60-115) mg/dL Calcium 9.0 (8.4-10.2) mg/dL Magnesium 2.0 (1.6-2.6) mg/dL Total Bilirubin 0.3 (0.0-1.0) mg/dL AST 18 (5-37) U/L ALT 26 (0-40) U/L Alkaline Phosphatase 66 (39-117) U/L Troponin I High Sens 6.7 D (<3.5-35.0) ng/L Total Protein 6.9 (6.5-8.0) g/dL Albumin 4.3 (3.5-5.0) g/dL Lipase 36 (8-78) U/L COVID-19 (ANGEL) Negative (Negative) COVID-19 Clin Com See Note Influenza Type A (PASTOR) Negative (Negative) Influenza Type B (PASTOR) Negative (Negative) Influenza A & B Note See Note Discharge Plan Discharge Clinical Impression: GERD without esophagitis Patient Disposition: Home, Self-Care Instructions: GERD (Gastroesophageal Reflux Disease) (ED), GERD (Gastroesophageal Reflux Disease) (DC) Prescriptions: New blomynbdz-dapdpa-zqcwzjut-scop [] 16.2-0.1037 -0.0194 mg/5 mL elixir 5 ml PO BID PRN (Reason: indigestion) Qty: 120 0RF No Action latanoprost 0.005 % drops 1 drp ophthalmic (eye) DAILY Qty: 7.5 3RF Rx Instructions: as directed epinephrine [EpiPen 2-Dread] 0.3 mg/0.3 mL auto-injector 0.3 mg IM Q4H PRN (Reason: anaphylaxis) Qty: 2 0RF albuterol sulfate 2.5 mg /3 mL (0.083 %) solution for nebulization 2.5 mg continuous nebulization QID PRN (Reason: shortness of breath or wheezing) 30 Days Qty: 480 5RF tamsulosin 0.4 mg capsule 0.4 mg PO DAILY 90 Days Qty: 90 1RF clotrimazole 1 % cream 1 appl topical BID 28 Days Qty: 45 2RF diphenhydramine HCl [Benadryl] 25 mg capsule 25 mg PO .COMPLEX Qty: 3 0RF Rx Instructions: 25 mg orally; Take 1 tablet the morning of day Before CT scan, Take 1 tablet the evening Before the CT scan, Take 1 tablet the DAY of the CT scan ( 2 hours prior) prednisone 20 mg tablet 20 mg PO .COMPLEX Qty: 3 0RF Rx Instructions: 20 mg orally; Take 1 tablet the morning of day Before CT scan, Take 1 tablet the evening Before the CT scan, Take 1 tablet the DAY of the CT scan ( 2 hours prior) olmesartan 40 mg tablet 40 mg PO DAILY Qty: 90 0RF hydrochlorothiazide 25 mg tablet 25 mg PO DAILY Qty: 90 0RF hydralazine 50 mg tablet 50 mg PO TID 90 Days Qty: 270 0RF (DME) FreeStyle Lite Strips Strip See Rx Instructions .ROUTE .COMPLEX Qty: 100 5RF Dose Instruction: USE DIRECTED TO TEST 5 TIMES DAILY. Rx Instructions: USE DIRECTED TO TEST 5 TIMES DAILY. montelukast 10 mg tablet 10 mg PO QPM Qty: 90 0RF lorazepam 0.5 mg tablet See Rx Instructions .ROUTE .COMPLEX PRN (Reason: anxiety) 30 Days Qty: 60 0RF Rx Instructions: 1 to 2 tablets orally twice a day as needed; PRN; omeprazole 40 mg capsule,delayed release(DR/EC) 40 mg PO DAILY Qty: 30 6RF (DME) CANE See Rx Instructions .Route .MEDSUPPLY Qty: 1 0RF Rx Instructions: As directed (DME) COMPRESSION STOCKINGS (medium compression - 20 to 30 mm); Knee high medium compression See Rx Instructions .Route .MEDSUPPLY Qty: 3 11RF Rx Instructions: As directed (DME) nebulizer and compressor [Portable Nebulizer System] Device See Rx Instructions .Route Qty: 1 0RF Rx Instructions: As directed cholecalciferol (vitamin D3) [Vitamin D3] 25 mcg (1,000 unit) capsule 25 mcg PO DAILY Qty: 30 0RF budesonide 0.5 mg/2 mL suspension for nebulization 0.5 mg inhalation BID 30 Days Qty: 120 0RF azithromycin 250 mg tablet 250 mg PO 3XW 28 Days Qty: 12 0RF Rx Instructions: Take 1 tablet on Monday/Monday/Monday aspirin 81 mg tablet,delayed release (DR/EC) 81 mg PO DAILY prednisone 10 mg tablet 10 mg PO DIRECTED 8 Days Qty: 20 0RF Rx Instructions: TAke 4 tabs for 2 days, then 3 tabs for 2 days, then 2 tabs for 2 days, then 1 tab for 2 days fluticasone furoate-vilanterol [Breo Ellipta] 200-25 mcg/dose blister with device 1 inh inhalation DAILY 30 Days Qty: 60 11RF fluticasone propionate [Flonase Allergy Relief] 50 mcg/actuation spray,suspension 2 spray intranasal DAILY PRN (Reason: nasal congestion) Qty: 16 11RF Rx Instructions: administer into each nostril famotidine 40 mg tablet 40 mg PO BID PRN (Reason: abdominal pain) Qty: 60 0RF albuterol sulfate [Ventolin HFA] 90 mcg/actuation HFA aerosol inhaler 2 puff PO QID PRN (Reason: shortness of breath or wheezing) 90 Days Qty: 3 3RF melatonin 5 mg tablet 5 mg PO BEDTIME PRN (Reason: sleep) Qty: 30 11RF zolpidem 10 mg tablet 10 mg PO BEDTIME PRN (Reason: insomnia) 30 Days Qty: 30 3RF diclofenac sodium [Voltaren Arthritis Pain] 1 % gel 4 g topical QID PRN (Reason: pain) Qty: 100 3RF Rx Instructions: apply to foot includes sole/toes/top of foot amlodipine 5 mg tablet 5 mg PO DAILY Qty: 90 3RF Rx Instructions: BP medication metoprolol succinate 50 mg tablet extended release 24 hr 50 mg PO DAILY (DME) FreeStyle Lola 3 Plus Sensor Device See Rx Instructions .ROUTE .MEDSUPPLY Qty: 1 0RF Rx Instructions: As directed change every 14 days insulin glargine [Lantus Solostar U-100 Insulin] 100 unit/mL (3 mL) insulin pen 10 unit subcut QPM Qty: 15 5RF Ozempic 0.25 mg or 0.5 mg (2 mg/3 mL) pen injector 0.25 mg subcut QWEEK Qty: 3 2RF Patient Comments: Patient states that he has not started taking this medication yet. Stand Alone Forms: Work/School Release Print Language: Yakut
--- NOTE | 2024-11-28 11:31 | ECG_ITS ---
Test Reason : CHEST PAIN Blood Pressure : */* mmHG Vent. Rate : 75 BPM Atrial Rate : 75 BPM P-R Int : 216 ms QRS Dur : 144 ms QT Int : 420 ms P-R-T Axes : 10 -43 -6 degrees QTcB Int : 469 ms Sinus rhythm with 1st degree A-V block Left axis deviation Right bundle branch block Abnormal ECG When compared with ECG of 19-Oct-2024 02:02, No significant change was found Referred By: Raisa Fletcher Electronically Signed By: HUGO CLARKE MD
[2024-11-28 11:56] LABS: MANUAL DIFF FLAG NO
[2024-11-28 11:57] LABS: Hematocrit 42.7 % (42.0-52.0); Hemoglobin 14.6 g/dl (14.0-18.0); Imm Gran Abs Auto 0.03 X10*3/uL (0.00-0.03); Imm Gran Pct Auto 0.5 % (0.0-0.4); Lymphocytes Absolute Auto 1.7 X10*3/uL (1.2-4.9); Mean Corpuscular HGB Conc 34.2 g/dl (31.0-36.0); Mean Corpuscular Hemoglobin 29.9 pg (27.0-33.0); Mean Corpuscular Volume 87.3 fL (80.0-98.0); NRBC Abs Auto 0.000 X10*3/uL (0.0-0.012); NRBC Pct Auto 0.0 /100WBC (0.0-0.2); Platelet Count 264 X10*3/uL (160-400); Red Blood Count 4.89 X10*6/uL (4.60-5.80); White Blood Count 6.6 X10*3/uL (4.8-10.8)
[2024-11-28 12:12] LABS: Alanine Aminotransferase 26 U/L (0-40); Albumin Level 4.3 g/dL (3.5-5.0); Alkaline Phosphatase 66 U/L (39-117); Anion Gap 10 (12-20); Aspartate Amino Transferase 18 U/L (5-37); Blood Urea Nitrogen 17 mg/dL (9-16); Calcium 9.0 mg/dL (8.4-10.2); Carbon Dioxide 28 mmol/L (22-29); Chloride 105 mmol/L (96-108); Creatinine Clr Calc Pharmacy 76.2; Estimated Glomerular Filt Rate > 60; Lipase 36 U/L (8-78); Magnesium 2.0 mg/dL (1.6-2.6); Potassium 4.4 mmol/L (3.3-5.1); Sodium 139 mmol/L (135-145); Total Protein 6.9 g/dL (6.5-8.0)
[2024-11-28 12:15] LABS: COVID-19 Test Negative (Negative); IDNOW Serial# 08D9AD1C
[2024-11-28 12:20] LABS: IDNOW Serial# 58CA691E; Influenza B2 Negative (Negative)
[2024-11-28 12:21] LABS: Troponin-I High Sensitivity 6.7 ng/L (<3.5-35.0)
[2024-11-28] MEDS: Magnesium Hydrox/Alum Hydrox 30 ML ORAL.SUSP PO (17:42)
[2024-11-28] MEDS: Lidocaine HCl Viscous 2 % 15 ML SOLUTION MUCOUS MEM (17:42)
[2024-11-28] MEDS: PHENobarb/Hyoscy/Atropine/Scop 10 ML ELIXIR PO (17:43)
--- OUTSIDE RECORDS SUMMARY | 2024-11-28 18:59 | XMS_ITS | Clinical Summary ---
Author Organization 175 [facility] Address [address] [place] [address] Phone Care Team Providers Care Meat Stringer Name Role Phone Oliverio Emerson MD Primary [...] 09/03/2024 10:45 AM EDT Consult Orthopedic Surgery [place] [address] [phone] Mike Velasquez DPM Controlled type 2 diabetes [...] Orthopedic Surgery [facility] [address] [address] Mike Velasquez DPM [address] [address] Health Maintenance Due Date Last Done Comments [...] to complete this topic Insurance [place] - [place] [employer] MEDICARE Member Subscriber Plan / Payer (Ef fective 2018-Present) Name:KEATON REDDY Relation to Subscriber:Self Name:Keaton Reddy Payer ID:[id number] Group ID:[id number] Type:Not on file Address: [address] [place] [id number] Care Teams Meat Stringer Relationship Specialty Start Date End Date Oliverio Emerson MD [address] [place] [address] [address] [place], [place] PCP - General 02/21/22
--- OUTSIDE RECORDS SUMMARY | 2024-11-28 18:59 | XMS_ITS | Clinical Summary ---
Author Organization [facility] Address [address] [place] [address] Phone Care Team Providers Care Applications Engineering Manager Name Role Phone Oliverio Emerson MD Primary Care Provider [phone] Allergies Active Allergy Reactions Criticality Noted Date [...] Payer (Ef fective 1992-Present) Name:Cullen Keaton Member ID:[id number] Relation to Subscriber:Self Name:Keaton Cullen Subscriber ID:[id number] Payer ID:[id number] Group ID:Not on file Type:Medicare Address: [facility] [employer] [facility] [address] [address] [facility] ONE CARE MEDICARE REPLACEMENT [place] [address] MEDICARE PART A & B Member Subscriber Plan / Payer (Ef fective 1992-Present) Name:Subhash Keaton Member ID:[id number] Relation to Subscriber:Self Name:Keaton Cullen Subscriber ID:[id number] Payer ID:[id number] Group ID:Not on file Type:Medicare Address: [employer] [address] ONE CARE MEDICARE REPLACEMENT MEDICARE PART A & B CARE MEDICARE REPLACEMENT MEDICARE PART A & B ONE CARE MEDICARE REPLACEMENT [place] [facility] MEDICARE PART A & B CARE MEDICARE REPLACEMENT MEDICARE PART A & B ONE CARE MEDICARE REPLACEMENT MEDICARE PART A & B [id number] [place] [address] ONE CARE MEDICARE REPLACEMENT MEDICARE PART A & B CARE MEDICARE REPLACEMENT [place] [id number] MEDICARE PART A & B ONE CARE MEDICARE REPLACEMENT Care Teams Applications Engineering Manager Relationship Specialty Start Date End Date Oliverio Emerson MD [address] [place] [address] [place] [address] PCP - General Internal Medicine 11/15/21 Additional Source Comments The information contained in this document represents components of the legal health record. It is not the complete legal health record.[facility]
== END 2024-11-28 21:55 | disposition home or self-care (01) ==
PROVIDERS: Physician Assistant Medical; Emergency Provider Student in an Organized Health Care Education/Training Program; PCP Internal Medicine
DX: K21.9 Gastro-esophageal reflux disease without esophagitis (principal); R10.13 Epigastric pain; R07.89 Other chest pain; J02.9 Acute pharyngitis, unspecified; R10.32 Left lower quadrant pain; Z79.899 Other long term (current) drug therapy; Z11.52 Encounter for screening for COVID-19; Z03.818 Encounter for observation for suspected exposure to other biological agents ruled out
CPT/HCPCS: 71046; 71250; 74176; 80053; 83690; 83735; 84484; 85025; 87502; 87635; 93005; 99284

== ENCOUNTER → 2024-11-28 11:31 | Outpatient (BNV) | payer OTHER, SELFPAY | PROVIDERS: PCP Internal Medicine; Visit Provider Radiology Diagnostic Radiology | DX: K42.9 Umbilical hernia without obstruction or gangrene (principal); T18.198A Other foreign object in esophagus causing other injury, initial encounter; R06.02 Shortness of breath | CPT/HCPCS: 71046; 71250; 74176 ==

== ENCOUNTER → 2024-11-28 11:31 | Outpatient (BNV) | payer OTHER, SELFPAY | PROVIDERS: PCP Internal Medicine; Visit Provider Internal Medicine Cardiovascular Disease | DX: I44.0 Atrioventricular block, first degree (principal); I45.10 Unspecified right bundle-branch block | CPT/HCPCS: 93010 ==

== ENCOUNTER 2024-12-13 09:09 | Outpatient (AMB) | payer OTHER, SELFPAY ==
--- NOTE | 2024-12-13 09:13 | A.OFFVIS_ITS ---
Vital Signs 12/13/24 09:15 Weight 224 lb 3.362 oz BP 138/80 Blood Pressure Location Rt brachial Position Sitting Pulse 93 Pulse Source Pulse Oximeter Pulse Oximetry (%) 97 Oxygen Delivery Method Room Air Intake Visit Reasons: DMT2 Follow-UP Intake Note: Patient present today for Type 2 Diabetes Mellitus Last Diabetic eye exam: Last exam was on 07/2024 Last Podiatry Visit: Last exam was on 04/2024 Random Glucose: 164 mg/dl HgA1C: 7.5% 11/11/24 Operations Assistant Required: No Accompanied by: Self / Same As Patient Allergies iodine (Iodine) Allergy (Severe, Verified 12/13/24 09:22) Anaphylaxis lisinopril Allergy (Severe, Verified 12/13/24 09:22) Rash metformin Allergy (Severe, Verified 12/13/24 09:22) diarrhea shellfish derived Allergy (Severe, Verified 12/13/24 09:22) Anaphylaxis meperidine (From Demerol) Allergy (Mild, Verified 12/13/24 09:22) RASH oxycodone (From Percocet) Adverse Reaction (Mild, Verified 12/13/24 09:22) MOUTH DRYNESS,RASH Mercury Detox Allergy (Severe, Uncoded 12/13/24 09:22) Throat closing (charcoal) Medication List - Last Reconciled 12/13/24 by Rae Oconnor PA-C albuterol sulfate 2.5 mg (3 mL) continuous nebulization QID PRN 30 days albuterol sulfate 90 mcg/actuation (Ventolin HFA) 2 puffs PO QID PRN 90 days amlodipine 5 mg PO DAILY aspirin 81 mg PO DAILY atorvastatin (Lipitor) 10 mg PO BEDTIME azithromycin 250 mg PO 3XW 28 days blood sugar diagnostic (FreeStyle Lite Strips) USE DIRECTED TO TEST 5 TIMES DAILY. blood-glucose sensor (FreeStyle Lola 3 Plus Sensor device) As directed change every 14 days blood-glucose sensor (FreeStyle Lola 3 Plus Sensor device) Use daily As directed to monitor glucose budesonide 0.5 mg (2 mL) inhalation BID 30 days [CANE As directed] cholecalciferol (vitamin D3) (Vitamin D3) 25 mcg PO DAILY clotrimazole 1% 1 appl topical BID 4 weeks [COMPRESSION STOCKINGS (medium compression - 20 to 30 mm); Knee high As directed ] diclofenac sodium 1% (Voltaren Arthritis Pain) 4 grams topical QID PRN diphenhydramine HCl (Benadryl) 25 mg orally; Take 1 tablet the morning of day Before CT scan, Take 1 tablet the evening Before the CT scan, Take 1 tablet the DAY of the CT scan ( 2 hours prior) epinephrine (EpiPen 2-Dread) 0.3 mg (0.3 mL) IM Q4H PRN famotidine 40 mg PO BID PRN fluticasone furoate-vilanterol 200-25 mcg/dose (Breo Ellipta) 1 inh inhalation DAILY 30 days fluticasone propionate 50 mcg/actuation (Flonase Allergy Relief) 2 sprays intranasal DAILY PRN hydralazine 50 mg PO TID 90 days hydrochlorothiazide 25 mg PO DAILY insulin glargine (Lantus Solostar U-100 Insulin) 10 units (0.1 mL) subcut QPM latanoprost 0.005% 1 drp ophthalmic (eye) DAILY lorazepam 1 to 2 tablets orally twice a day as needed; PRN; 30 days melatonin 5 mg PO BEDTIME PRN metoprolol succinate ER 50 mg PO DAILY montelukast 10 mg PO QPM nebulizer and compressor (Portable Nebulizer System) As directed olmesartan 40 mg PO DAILY omeprazole 40 mg PO DAILY duvuebmok-szoswr-dcjgyuww-scop 16.2-0.1037 -0.0194 mg/5 mL () 5 mL PO BID PRN prednisone 20 mg orally; Take 1 tablet the morning of day Before CT scan, Take 1 tablet the evening Before the CT scan, Take 1 tablet the DAY of the CT scan ( 2 hours prior) prednisone 10 mg PO DIRECTED 8 days semaglutide (Ozempic) 0.5 mg (0.736 mL) subcut QWEEK tamsulosin 0.4 mg PO DAILY 90 days zolpidem 10 mg PO BEDTIME PRN 30 days HPI HPI DMT2 Follow-UP: Details: Patient is a 59 year-old male with a significant past medical history of controlled 2 diabetes, hyperlipidemia, hypertension, COPD with asthma overlap presenting today for a diabetic follow-up. Endo: His last A1c was 6.2 and today his A1c is 7.5. He is on Ozempic 0.25 mg, and Lantus 10 units daily -He did get some nausea with the higher doses of Mounjaro. He had nausea with Trulicity at higher doses. Tried Jardiance but made him feel sick and experienced urinary symptoms. 61% in range 39% hyperglycemia, 0% lows. -follows routinely with ophthalmology CV: Blood pressure today in the office is 120/82. He is on amlodipine 5 mg, hydralazine 50 mg t.i.d., metoprolol 50 mg daily, hydrochlorothiazide 25 mg and olmesartan 40 mg daily.. Pt states he recently had ct heart showing calcifications. We do not yet have the results. Last LDL 143. [facility] Medical History (Updated 11/29/24 @ 00:00 by Delphine Daphoebe) Glaucoma Dyspnea Standard chest x-ray abnormal Diabetes mellitus RBBB (right bundle branch block) Laryngospasm Chronic bronchitis Supplemental oxygen dependent Onychomycosis Hx of fracture of fibula GERD without esophagitis Asthma-COPD overlap syndrome Diastasis recti JOSÉ (obstructive sleep apnea) Bursitis Low back pain Claustrophobia Hemoptysis Anxiety Insomnia Migraine Pure hypercholesterolemia Benign essential hypertension Type 2 diabetes mellitus with hyperglycemia, without long-term current use of insulin Stasis edema of both lower extremities Lumbar degenerative disc disease Obesity (BMI 30-39.9) Chronic rhinitis Hiatal hernia Erectile dysfunction Surgical History History of bronchoscopy History of endoscopy Hx of colonoscopy Hx of cardiac catheterization History of nasal surgery History of carpal tunnel surgery Family History Father No problems noted. Mother Chronic kidney disease (CKD) Heart attack Other Mental health problem Social History Household Members: Spouse, Family and Children Household Members Other:: adult children Housing: House Are you a primary hemodialysis patient care specialist to a significant other at home: No Do you presently have visiting nurse or other home services: No Alcohol intake: never Patient Tobacco Use Status: Never used Tobacco e-Cigarette/Vaping Use: Never Used Second Hand Smoke Exposure: Yes (employees smoked atwork) service: No Current occupational status: disabled Cognitive needs: No Hearing needs: No Vision needs: No Physical Exam Vital Signs: Last Vital Signs Pulse 93 12/13/24 09:15 BP 138/80 12/13/24 09:15 Pulse Ox 97 12/13/24 09:15 Oxygen Delivery Method Room Air 12/13/24 09:15 Const Orientation/consciousness: patient oriented x3 Neck Neck: Yes no lymphadenopathy Thyroid: Thyroid normal Carotids: no bruits Resp Auscultation: clear to auscultation bilaterally Cardio Rate: regular rate Rhythm: regular rhythm Heart sounds: S1 normal heart sound present and S2 normal heart sound present Peripheral pulses: dorsalis pedis present Neuro General: patient oriented x3, gait normal and no focal motor deficits Extrem Other: Monofilament sensation intact bilaterally. Vibratory sensation intact bilaterally. Skin intact. General: Yes normal to inspection Results Reviewed Results Reviewed: Laboratory Last Values Glucose (Clinic) 164 mg/dL (60-115) H 12/13/24 09:24 Laboratory Tests 08/05/24 10/19/24 10/21/24 09:30 02:26 10:15 Creatinine 1.09 Estim Creat Clear Calc Estimated GFR > 60 Glucose (Clinic) 168 H Random Glucose Hgb A1c (Clinic) 6.2 H AST ALT Triglycerides Cholesterol LDL Cholesterol, Calc HDL Cholesterol 11/11/24 11/27/24 11/28/24 13:18 16:20 11:50 Creatinine 1.18 Estim Creat Clear Calc 76.2 Estimated GFR > 60 Glucose (Clinic) Random Glucose 170 H Hgb A1c (Clinic) 7.5 H AST 18 ALT 26 Triglycerides 114 Cholesterol 204 H LDL Cholesterol, Calc 146 H HDL Cholesterol 36 L 12/13/24 09:24 Creatinine Estim Creat Clear Calc Estimated GFR Glucose (Clinic) 164 H Random Glucose Hgb A1c (Clinic) AST ALT Triglycerides Cholesterol LDL Cholesterol, Calc HDL Cholesterol Assessment & Plan Assessment & Plan (1) Type 2 diabetes, controlled, with peripheral neuropathy: Code(s): E11.42 - Type 2 diabetes mellitus with diabetic polyneuropathy Category: Medical Plan: Increase Ozempic to 0.5 mg weekly Continue with the Lantus (2) Benign essential hypertension: Code(s): I10 - Essential (primary) hypertension Category: Medical Plan: WNL. Continue current regimen (3) Pure hypercholesterolemia: Code(s): E78.00 - Pure hypercholesterolemia, unspecified Category: Medical Plan: Start Lipitor 10 mg nightly. Discussed risks and benefits and adverse effects of this medication. I will recheck labs in 3 months. Did encourage him to follow up with Cardiology in his PCP. Orders: Orders Comprehensive [place]. Panel Fast Today E11.42 - Type 2 diabetes mellitus with diabetic polyneuropathy, E78.00 - Pure hypercholesterolemia, unspecified, I10 - Essential (primary) hypertension Lipid Panel Today E11.42 - Type 2 diabetes mellitus with diabetic polyneuropathy, E78.00 - Pure hypercholesterolemia, unspecified, I10 - Essential (primary) hypertension Hemoglobin A1c Today E11.42 - Type 2 diabetes mellitus with diabetic polyneuropathy, E78.00 - Pure hypercholesterolemia, unspecified, I10 - Essential (primary) hypertension, R73.01 - Impaired fasting glucose Medications: New semaglutide (Ozempic) 0.5 mg (0.736 mL) subcut QWEEK 3 mL 3RF alcohol swabs (Alcohol Prep Pads) 1 pad topical QID 200 ea 4RF atorvastatin (Lipitor) 10 mg PO BEDTIME 90 tabs 1RF empty container (Sharps Container) use As directed to dispose of sharps 1 ea 11RF E11.42 - Type 2 diabetes mellitus with diabetic polyneuropathy Refilled blood-glucose sensor (FreeStyle Lola 3 Plus Sensor device) Use daily As directed to monitor glucose 6 ea 3RF E08.29 - Diabetes mellitus due to underlying condition with other diabetic kidney complication, R80.9 - Proteinuria, unspecified, 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
[2024-12-13 09:15] VITALS: BP 138/80; PULSE 93; O2SAT 97
[2024-12-13 09:28] LABS: Glucose, Whole Blood 164 mg/dL (60-115)
--- OUTSIDE RECORDS SUMMARY | 2024-12-13 09:52 | XMS_ITS | Clinical Summary ---
Author Organization [facility] Address [address] [place] [address] Phone Care Team Providers Care Information Assistant Name Role Phone Oliverio Emerson MD Primary Care Provider [phone] Allergies Active Allergy Reactions Criticality Noted Date [...] dry skin. 560 g 2 5 09/04/19 Active Social History Tobacco Use Types Packs/Day Years [...] 09/03/2024 11:12 AM EDT Plan of Treatment Health Maintenance Due Date Last Done Comments Zoster Vaccines (1 of 2) 2014 Pneumococcal Vaccine: 50+ Years (2 of 2 - PCV) 12/07/2017 12/07/2016 Cholesterol Screening (Lipid Panel) 04/14/2023 Colorectal Cancer Screening: Colonoscopy 04/14/2023 HIV Screening 04/14/2023 Hepatitis C Screening 04/14/2023 Medicare Annual Wellness Visit 04/14/2023 Social Influencers of Health Screening 04/14/2023 Depression Screening 03/20/2024 RSV Immunization Adult Patients (1 - Risk 60-74 years 1-dose series) 2024 COVID-19 Vaccine (1 - 2023- season) 2024 Influenza Vaccine (#1) 2024 5, 02/09/2021, 01/10/2019, Additional history exists DTaP,Tdap,and Td [...] Group ID:[id number] Type:Not on file Address: [address] [place] [address] Care Teams Information Assistant Relationship Specialty Start Date End Date Oliverio Emerson MD [address] [place] [address] [address] [place] PCP - General 02/21/22
--- OUTSIDE RECORDS SUMMARY | 2024-12-13 09:52 | XMS_ITS | Clinical Summary ---
Author Organization [facility] Address [address] [place] [address] Phone Care Team Providers Care Still Operator Batch Or Continuous Name Role Phone Oliverio Emerson MD Primary Care Provider [phone] Allergies Active Allergy Reactions Criticality Noted Date [...] Payer (Ef fective 1992-Present) Name:Cullen Keaton Member ID:[id number] Relation to Subscriber:Self Name:Keaton Cullen Subscriber ID:[id number] Payer ID:[id number] Group ID:Not on file Type:Medicare Address: [facility] [employer] [facility] [employer] [facility] [address] [address] [facility] ONE CARE MEDICARE REPLACEMENT [place] [id number] MEDICARE PART A & B Member Subscriber Plan / Payer (Ef fective 1992-Present) Name:Subhash Kaeton Member ID:[id number] Relation to Subscriber:Self Name:Keaton Cullen Subscriber ID:[id number] Payer ID:[id number] Group ID:Not on file Type:Medicare Address: [employer] [address] ONE CARE MEDICARE REPLACEMENT MEDICARE PART A & B CARE MEDICARE REPLACEMENT MEDICARE PART A & B ONE CARE MEDICARE REPLACEMENT [place] [facility] MEDICARE PART A & B CARE MEDICARE REPLACEMENT MEDICARE PART A & B ONE CARE MEDICARE REPLACEMENT MEDICARE PART A & B [id number] [place] [address] ONE CARE MEDICARE REPLACEMENT MEDICARE PART A & B CARE MEDICARE REPLACEMENT [place] [id number] MEDICARE PART A & B ONE CARE MEDICARE REPLACEMENT Care Teams Still Operator Batch Or Continuous Relationship Specialty Start Date End Date Oliverio Emerson MD [address] [place] [address] [place] [address] PCP - General Internal Medicine 11/15/21 Additional Source Comments The information contained in this document represents components of the legal health record. It is not the complete legal health record.[facility]
== END 2024-12-13 09:57 | disposition home or self-care (01) ==
LOC: HO.ENCR 09:10
PROVIDERS: PCP Internal Medicine; Visit Provider Physician Assistant
DX: E11.42 Type 2 diabetes mellitus with diabetic polyneuropathy (principal); I10 Essential (primary) hypertension; E78.00 Pure hypercholesterolemia, unspecified

== ENCOUNTER → 2024-12-13 09:09 | Outpatient (BNVA) | payer OTHER, SELFPAY | PROVIDERS: PCP Internal Medicine; Visit Provider Physician Assistant | DX: E11.42 Type 2 diabetes mellitus with diabetic polyneuropathy (principal); I10 Essential (primary) hypertension; E78.00 Pure hypercholesterolemia, unspecified; Z79.4 Long term (current) use of insulin | CPT/HCPCS: 82947; 99212 ==

== ENCOUNTER 2025-01-20 09:37 | Outpatient (AMB) | payer OTHER, SELFPAY ==
--- NOTE | 2025-01-20 10:17 | MHC.OFFVIS ---
Vital Signs 01/20/25 10:18 Height 5 ft 8 in Weight 225 lb 12.054 oz BMI 34.3 BP 154/80 H Blood Pressure Location Lt brachial Position Sitting Pulse 84 Pulse Source Monitor Intake Visit Reasons: preop Sports Nutritionist Required: No Accompanied by: Self / Same As Patient Allergies iodine (Iodine) Allergy (Severe, Verified 01/20/25 10:20) Anaphylaxis lisinopril Allergy (Severe, Verified 01/20/25 10:20) Rash metformin Allergy (Severe, Verified 01/20/25 10:20) diarrhea shellfish derived Allergy (Severe, Verified 01/20/25 10:20) Anaphylaxis meperidine (From Demerol) Allergy (Mild, Verified 01/20/25 10:20) RASH oxycodone (From Percocet) Adverse Reaction (Mild, Verified 01/20/25 10:20) MOUTH DRYNESS,RASH Mercury Detox Allergy (Severe, Uncoded 12/13/24 09:22) Throat closing (charcoal) Medication List - Last Reconciled 01/20/25 by SHANNON ChapmanC albuterol sulfate 2.5 mg (3 mL) continuous nebulization QID PRN 30 days albuterol sulfate 90 mcg/actuation (Ventolin HFA) 2 puffs PO QID PRN 90 days alcohol swabs (Alcohol Prep Pads) 1 pad topical QID amlodipine 5 mg PO DAILY aspirin 81 mg PO DAILY atorvastatin (Lipitor) 10 mg PO BEDTIME azithromycin 250 mg PO 3XW 28 days blood sugar diagnostic (FreeStyle Lite Strips) USE DIRECTED TO TEST 5 TIMES DAILY. blood-glucose sensor (FreeStyle Lola 3 Plus Sensor device) Use daily As directed to monitor glucose budesonide 0.5 mg (2 mL) inhalation BID 30 days [CANE As directed] cholecalciferol (vitamin D3) (Vitamin D3) 25 mcg PO DAILY clotrimazole 1% 1 appl topical BID 4 weeks [COMPRESSION STOCKINGS (medium compression - 20 to 30 mm); Knee high As directed] diclofenac sodium 1% (Voltaren Arthritis Pain) 4 grams topical QID PRN diphenhydramine HCl (Benadryl) 25 mg orally; Take 1 tablet the morning of day Before CT scan, Take 1 tablet the evening Before the CT scan, Take 1 tablet the DAY of the CT scan ( 2 hours prior) empty container (Sharps Container) use As directed to dispose of sharps famotidine 40 mg PO BID PRN fluticasone furoate-vilanterol 200-25 mcg/dose (Breo Ellipta) 1 inh inhalation DAILY 30 days fluticasone propionate 50 mcg/actuation (Flonase Allergy Relief) 2 sprays intranasal DAILY PRN hydrochlorothiazide 25 mg PO DAILY insulin glargine (Lantus Solostar U-100 Insulin) 10 units (0.1 mL) subcut QPM latanoprost 0.005% 1 drp ophthalmic (eye) DAILY lorazepam 1 to 2 tablets orally twice a day as needed; PRN; 30 days melatonin 5 mg PO BEDTIME PRN metoprolol succinate ER 50 mg PO DAILY montelukast 10 mg PO QPM nebulizer and compressor (Portable Nebulizer System) As directed olmesartan 40 mg PO DAILY omeprazole 40 mg PO DAILY prednisone 10 mg PO DIRECTED 8 days semaglutide (Ozempic) 0.5 mg (0.736 mL) subcut QWEEK tamsulosin 0.4 mg PO DAILY 90 days zolpidem 10 mg PO BEDTIME PRN 30 days HPI HPI preop: Details: Keaton is a 59 year old male with past medical history of obesity, hypertension, hyperlipidemia, diabetes, sleep apnea with O2 use, right bundle branch block, anxiety, asthma, chest discomfort who recently had a CTA of the coronary arteries showing [id number] CAD with reduced FFR in the terminal LAD who now presents for follow-up. Today he reports he is still getting tightness in his chest with walking distances his chest. He says this symptom has not worsened since his last visit in August. At times he will get a pain in his left chest that travels into his left arm which occurs randomly. He has some shortness of breath at times which he relates to asthma. He tells me his asthma is mostly controlled. At times he will feel his heart beating fast. No dizziness, presyncope, syncope, falls. Taking meds as directed. Does not check blood pressure readings at home. He is scheduled for right shoulder arthroplasty tomorrow and he needs preop clearance. Informed him that with his chest symptoms and CTA findings he will need to postpone the procedure. [facility] Medical History Glaucoma Dyspnea Standard chest x-ray abnormal Diabetes mellitus RBBB (right bundle branch block) Laryngospasm Chronic bronchitis Supplemental oxygen dependent Onychomycosis Hx of fracture of fibula GERD without esophagitis Asthma-COPD overlap syndrome Diastasis recti JOSÉ (obstructive sleep apnea) Bursitis Low back pain Claustrophobia Hemoptysis Anxiety Insomnia Migraine Pure hypercholesterolemia Benign essential hypertension Type 2 diabetes mellitus with hyperglycemia, without long-term current use of insulin Stasis edema of both lower extremities Lumbar degenerative disc disease Obesity (BMI 30-39.9) Chronic rhinitis Hiatal hernia Erectile dysfunction Surgical History History of bronchoscopy History of endoscopy Hx of colonoscopy Hx of cardiac catheterization History of nasal surgery History of carpal tunnel surgery Family History Father No problems noted. Mother Chronic kidney disease (CKD) Heart attack Other Mental health problem Social History Household Members: Spouse, Family and Children Household Members Other:: adult children Housing: House Are you a primary healthcare interpreter to a significant other at home: No Do you presently have visiting nurse or other home services: No Alcohol intake: never Patient Tobacco Use Status: Never used Tobacco e-Cigarette/Vaping Use: Never Used Second Hand Smoke Exposure: Yes (employees smoked atwork) service: No Current occupational status: disabled Cognitive needs: No Hearing needs: No Vision needs: No Review of Systems Const All systems reviewed & are unremarkable except as noted in HPI and below Denies daytime sleepiness, Denies difficulty sleeping, Denies snoring, Denies stops breathing during sleep and Denies weakness Card Reports chest pain (tightness with exertion), Denies rapid heart rate, Denies irregular heart rhythm, Denies claudication, Denies leg edema, Denies lightheadedness, Denies palpitations, Denies dyspnea, Reports dyspnea on exertion, Denies orthopnea, Denies paroxysmal nocturnal dyspnea and Denies slow heart rate Resp Denies cough, Denies dyspnea, Reports dyspnea on exertion and Denies snoring GI Denies no additional complaints, Denies hematochezia, Denies change in stool character and Denies dyspepsia Musc Details: Right shoulder discomfort Denies abnormal gait, Denies muscle weakness and Denies numbness Neuro Denies abnormal gait, Denies numbness and Denies weakness Endo Denies palpitations Physical Exam Vital Signs: Last Vital Signs Pulse 84 01/20/25 10:18 BP 154/80 H 01/20/25 10:18 BMI result Body Mass Index 34.3 Const General: cooperative, healthy appearing, comfortable and no acute distress Orientation/consciousness: patient oriented x3 Neck Neck: Yes normal visual inspection and Yes no JVD Resp Effort & Inspection: normal respiratory effort Auscultation: clear to auscultation bilaterally, no crackles, no rales, no rhonchi and no wheezes Cardio Rate: regular rate Rhythm: regular rhythm Heart sounds: S1 normal heart sound present, S2 normal heart sound present, no gallops, no murmurs and no rubs Neuro General: patient oriented x3 Extrem General: Yes normal to inspection, No no pedal edema and No calf tenderness Psych Appearance: grossly normal Mental Status: mental status grossly normal Speech and movement: Normal speech and movement present Office Procedures EKG Details: Today, read by me, Normal sinus rhythm, left axis deviation, RBBB, rate 84, Qtc 477ms [id number]-[id number], Complete Assessment & Plan Assessment & Plan (1) Chest discomfort: Code(s): R07.89 - Other chest pain Category: Medical Plan: Report of chest tightness with exertional activity and when he is anxious. He does have multiple cardiac risk factors including diabetes, hypertension, hyperlipidemia, obesity. Cardiac catheterization from 2019 showed no significant CAD. Stress echocardiogram on 08/08/2024 with exercise 8 minutes, severe shortness of breath, no chest discomfort and no EKG changes of ischemia. His echo images were nondiagnostic for ischemia. He then had CTA of the coronary arteries which does show [id number] LAD and moderate left circumflex stenosis. FFR 0.77 in the terminal LAD. EKG today showing normal sinus rhythm, left axis deviation, right bundle branch block, rate 84. He is preop for right shoulder arthroplasty. Will arrange for cardiac catheterization for further evaluation. Procedure reviewed with him in detail including risks. He states understanding and is agreeable to proceed. His blood pressure is elevated. Will order preprocedure labs and send premedication due to contrast allergy. Will increase amlodipine and metoprolol doses. Continue aspirin, atorvastatin. Signs and symptoms of angina reviewed. Instructed on light activities until cardiac evaluation completed. Emergency care if ever needed for symptoms. Cardiology follow-up 2 weeks post cath, sooner if needed. (2) Abnormal cardiac CT angiography: Comment: CTA of coronary arteries 12/11/2024, left main normal, lad 25-49% stenosis proximal, less than 25% mid, moderate ostial 1st diagonal stenosis, FFR 0.77 terminal LAD, left circumflex moderate 50% ostial, 50-69% mid, mild OM1 and moderate OM2 stenosis, large RCA, minimal irregularities less than 25% stenosis Code(s): R93.1 - Abnormal findings on diagnostic imaging of heart and coronary circulation Category: Medical Plan: As above (3) Coronary artery disease: Code(s): I25.10 - Atherosclerotic heart disease of [place] coronary artery without angina pectoris Category: Medical Plan: New finding based on CTA of the coronary arteries. Also had chest CT 11/28/2024 which shows that coronary artery calcifications are present. (4) Hypertension: Code(s): I10 - Essential (primary) hypertension Category: Medical Qualifiers: Hypertension type: primary hypertension Qualified Code(s): I10 - Essential (primary) hypertension Plan: Blood pressure goal less than 130/80. Elevated at this visit. Will increase amlodipine to 10 mg daily. Will increase metoprolol XL to 100 mg daily. Continue hydrochlorothiazide and olmesartan. Will arrange for office blood pressure check in 2 weeks. (5) RBBB: Code(s): I45.10 - Unspecified right bundle-branch block Category: Medical Plan: Chronic finding. (6) JOSÉ (obstructive sleep apnea): Comment: JOSÉ W/CPAP-does not always use Code(s): G47.33 - Obstructive sleep apnea (adult) (pediatric) Category: Medical Plan: He does not wear CPAP. He uses oxygen during the night. (7) Pure hypercholesterolemia: Code(s): E78.00 - Pure hypercholesterolemia, unspecified Category: Medical Plan: Hanna LDL goal less than 70 in patient with diabetes. Labs done 11/27/2024 showed LDL 146. He was not on statin. He is now on atorvastatin 10 mg daily. Will add fasting lipids to his upcoming blood work. (8) Preop cardiovascular exam: Code(s): Z01.810 - Encounter for preprocedural cardiovascular examination Category: Medical Plan: Preop for right shoulder arthroplasty, Dr. Aguillon at [facility]. Abnormal CTA of the coronary arteries and reports of exertional chest tightness. He needs to undergo cardiac catheterization. Unable to clear for his surgical procedure at this time. His procedure is scheduled for tomorrow and will need to be canceled. Plan I discussed with the patient the findings of the CT scan showing coronary artery narrowing and the need for an angiogram to further evaluate the condition. We also talked about postponing the right shoulder surgery until cardiac clearance is obtained to prevent potential complications. Orders: Orders Cardiac Cath LT w PCI Today I25.10 - Atherosclerotic heart disease of [place] coronary artery without angina pectoris, R07.89 - Other chest pain, R93.1 - Abnormal findings on diagnostic imaging of heart and coronary circulation Complete Blood Count Auto Diff Today R93.1 - Abnormal findings on diagnostic imaging of heart and coronary circulation Basic Metabolic Panel Today R93.1 - Abnormal findings on diagnostic imaging of heart and coronary circulation Prothrombin Time INR Today R93.1 - Abnormal findings on diagnostic imaging of heart and coronary circulation Medications: New amlodipine dose increase 10 mg PO DAILY 30 tabs 5RF 30 days metoprolol succinate ER dose increase 100 mg PO DAILY 30 tabs 5RF methylprednisolone (Medrol) 16 mg orally 2 tablets (32mg) 12 hours before Cardiac cath and 2 tablets ( 32 mg) 2 hours before cardiac cath 4 tabs 0RF premedication cetirizine (Zyrtec) Take 1 capsule 2 hours prior to cardiac cath 10 mg PO ONCE 1 cap 0RF allergy symptoms Discontinued amlodipine BP medication Discontinued Reason: Doctor's Order 5 mg PO DAILY 90 tabs 3RF prednisone TAke 4 tabs for 2 days, then 3 tabs for 2 days, then 2 tabs for 2 days, then 1 tab for 2 days Discontinued Reason: Patient Completed Course 10 mg PO DIRECTED 8 days 20 tabs 0RF Patient Instructions: - Follow up for an angiogram to assess coronary artery disease. - Postpone right shoulder surgery until cardiac clearance is obtained. - Medication adjustments as discussed for better BP control. - Office BP check in 2 weeks - Cardiology OV 2 weeks post cath procedure Patient was informed and verbally consented to the use of an ambient scribe for clinic note documentation during this visit. Visit time spent on chart review, interview, assessment, orders, documentation. Coding Level of Care Code Est Pt Level 4 (56678) Complex EM visit Add On G2211 Diagnoses Chest discomfort R07.[address] angiography R93.1 Coronary artery disease I25.10 Primary hypertension I10 Hypertension type: primary hypertension RBBB I45.10 JOSÉ (obstructive sleep apnea) G47.33 Pure hypercholesterolemia E78.00 Preop cardiovascular exam Z01.810 CPT Codes EKG - CPT: 63580-Jitwoiffgnrtlqlwh, Complete ([id number]) Time Spent (min) 32
[2025-01-20 10:18] VITALS: BP 154/80; PULSE 84; BMI 34.3
--- OUTSIDE RECORDS SUMMARY | 2025-01-20 11:04 | XMS_ITS | Clinical Summary ---
Author Organization [facility] Address [address] [place] [address] [place] [phone] Phone Care Team Providers Care Managed Care Manager Name Role Phone Oliverio Emerson MD Primary Care Provider [phone] Allergies Active Allergy Reactions Criticality Noted Date [...] Payer (Ef fective 1992-Present) Name:Cullen Keaton Member ID:[id number] Relation to Subscriber:Self Name:Keaton Cullen Subscriber ID:[id number] Payer ID:[id number] Group ID:Not on file Type:Medicare Address: [facility] [employer] [facility] [address] [address] [facility] ONE CARE MEDICARE REPLACEMENT [place] [id number] MEDICARE PART A & B Member Subscriber Plan / Payer (Ef fective 1992-Present) Name:Subhash Keaton Member ID:[id number] Relation to Subscriber:Self Name:Keaton Cullen Subscriber ID:[id number] Payer ID:[id number] Group ID:Not on file Type:Medicare Address: [employer] [address] ONE CARE MEDICARE REPLACEMENT MEDICARE PART A & B CARE MEDICARE REPLACEMENT MEDICARE PART A & B ONE CARE MEDICARE REPLACEMENT [place] [facility] MEDICARE PART A & B CARE MEDICARE REPLACEMENT MEDICARE PART A & B ONE CARE MEDICARE REPLACEMENT MEDICARE PART A & B [id number] [place] [address] ONE CARE MEDICARE REPLACEMENT MEDICARE PART A & B CARE MEDICARE REPLACEMENT [place] [id number] MEDICARE PART A & B ONE CARE MEDICARE REPLACEMENT Care Teams Managed Care Manager Relationship Specialty Start Date End Date Oliverio Emerson MD [address] [place] [address] [place] [address] PCP - General Internal Medicine 11/15/21 Additional Source Comments The information contained in this document represents components of the legal health record. It is not the complete legal health record.[facility]
== END 2025-01-20 11:22 | disposition home or self-care (01) ==
LOC: HO.HCS 09:38
PROVIDERS: PCP Internal Medicine; Visit Provider Nurse Practitioner Family
DX: R07.89 Other chest pain (principal); R93.1 Abnormal findings on diagnostic imaging of heart and coronary circulation; I25.10 Atherosclerotic heart disease of native coronary artery without angina pectoris; I10 Essential (primary) hypertension; I45.10 Unspecified right bundle-branch block; G47.33 Obstructive sleep apnea (adult) (pediatric); E78.00 Pure hypercholesterolemia, unspecified; Z01.810 Encounter for preprocedural cardiovascular examination
CPT/HCPCS: 93010; 99214; G2211

== ENCOUNTER → 2025-01-20 09:37 | Outpatient (BNVA) | payer OTHER, SELFPAY | PROVIDERS: PCP Internal Medicine; Visit Provider Nurse Practitioner Family | DX: Z01.810 Encounter for preprocedural cardiovascular examination (principal); R07.89 Other chest pain; R93.1 Abnormal findings on diagnostic imaging of heart and coronary circulation; I25.10 Atherosclerotic heart disease of native coronary artery without angina pectoris; I10 Essential (primary) hypertension; I45.10 Unspecified right bundle-branch block; G47.33 Obstructive sleep apnea (adult) (pediatric); E78.00 Pure hypercholesterolemia, unspecified | CPT/HCPCS: 93005; 99212 ==

== ENCOUNTER 2025-01-29 10:16 | Outpatient (REF) | payer OTHER, SELFPAY ==
--- OUTSIDE RECORDS SUMMARY | 2025-01-29 12:06 | XMS_ITS | Clinical Summary ---
Author Organization [facility] Address [address] [place] [address] [place] [address] Phone Care Team Providers Care Crime Lab Analyst Name Role Phone Oliverio Emerson MD Primary Care Provider [phone] Allergies Active Allergy Reactions Criticality Noted Date [...] Payer (Ef fective 1992-Present) Name:Cullen Keaton Member ID:[id number] Relation to Subscriber:Self Name:Keaton Cullen Subscriber ID:[id number] Payer ID:[id number] Group ID:Not on file Type:Medicare Address: [facility] [employer] [facility] [address] [address] [facility] ONE CARE MEDICARE REPLACEMENT [place] [id number] MEDICARE PART A & B Member Subscriber Plan / Payer (Ef fective 1992-Present) Name:Subhash Keaton Member ID:[id number] Relation to Subscriber:Self Name:Keaton Cullen Subscriber ID:[id number] Payer ID:[id number] Group ID:Not on file Type:Medicare Address: [employer] [address] ONE CARE MEDICARE REPLACEMENT MEDICARE PART A & B Member Subscriber Plan / Payer ( fective 1992-) Name:Keaton Cullen Member ID:[id number] Relation to Subscriber:Self Name:Keaton Cullen Subscriber ID:[id number] Payer ID:[id number] Group ID:Not on file Type:Medicare Address: [employer] [address] [place] [address] CARE MEDICARE REPLACEMENT MEDICARE PART A & B ONE CARE MEDICARE REPLACEMENT [place] [facility] MEDICARE PART A & B Member Subscriber Plan / Payer ( fective 1992-Present) Name:Keaton Cullen Member ID:[id number] Relation to Subscriber:Self Name:Keaton Cullen Subscriber ID:[id number] Payer ID:[id number] Group ID:Not on file Type:Medicare Address: [facility] [employer] [address] [place] [address] CARE MEDICARE REPLACEMENT MEDICARE PART A & B ONE CARE MEDICARE REPLACEMENT MEDICARE PART A & B [id number] [place] [address] ONE CARE MEDICARE REPLACEMENT MEDICARE PART A & B Member Subscriber Plan / Payer ( fective 1992-) Name:CullenKeaton masters Member ID:[id number] Relation to Subscriber:Self Name:Keaton Cullen Subscriber ID:[id number] Payer ID:[id number] Group ID:Not on file Type:Medicare Address: [employer] [address] [place] [address] CARE MEDICARE REPLACEMENT [place] [id number] MEDICARE PART A & B ONE CARE MEDICARE REPLACEMENT Care Teams Crime Lab Analyst Relationship Specialty Start Date End Date Oliverio Emerson MD [address] [place] [address] [place] [address] PCP - General Internal Medicine 11/15/21 Additional Source Comments The information contained in this document represents components of the legal health record. It is not the complete legal health record.[facility]
--- OUTSIDE RECORDS SUMMARY | 2025-01-29 12:06 | XMS_ITS | Clinical Summary ---
Author Organization [facility] Address [address] [place] [address] Phone Care Team Providers Care Corrective Therapy Aide Name Role Phone Oliverio Emerson MD Primary [...] Health Maintenance Due Date Last Done Comments Colorectal Cancer Screening: Colonoscopy 1965 RSV Immunization Adult Patients (1 - Risk 50-74 years 1-dose series) 2014 Zoster Vaccines (1 of 2) 2014 Pneumococcal Vaccine: 50+ Years (2 of 2 - PCV) 12/07/2017 12/07/2016 Cholesterol Screening (Lipid Panel) 04/14/2023 HIV Screening 04/14/2023 Hepatitis C Screening 04/14/2023 Medicare Annual Wellness Visit 04/14/2023 Social Influencers of Health Screening 04/14/2023 Depression Screening 03/20/2024 COVID-19 Vaccine ( - season) 2024 Influenza Vaccine (#1) 2024 5, [...] Group ID:[id number] Type:Not on file Address: [address] [place] [address] Care Teams Corrective Therapy Aide Relationship Specialty Start Date End Date Oliverio Emerson MD [address] [place] [address] [address] [place] PCP - General 02/21/22
[2025-01-29 13:33] LABS: Anion Gap 12 (12-20); Blood Urea Nitrogen 13 mg/dL (9-16); Calcium 9.8 mg/dL (8.4-10.2); Carbon Dioxide 29 mmol/L (22-29); Chloride 103 mmol/L (96-108); Estimated Glomerular Filt Rate > 60; Potassium 3.6 mmol/L (3.3-5.1); Sodium 140 mmol/L (135-145)
[2025-01-29 13:36] LABS: MANUAL DIFF FLAG NO
[2025-01-29 13:45] LABS: Hematocrit 47.2 % (42.0-52.0); Hemoglobin 15.7 g/dl (14.0-18.0); INTERNATIONAL NORM RATIO 1.0 (0.9-1.1); Imm Gran Abs Auto 0.02 X10*3/uL (0.00-0.03); Imm Gran Pct Auto 0.3 % (0.0-0.4); Lymphocytes Absolute Auto 2.2 X10*3/uL (1.2-4.9); Mean Corpuscular HGB Conc 33.3 g/dl (31.0-36.0); Mean Corpuscular Hemoglobin 29.1 pg (27.0-33.0); Mean Corpuscular Volume 87.6 fL (80.0-98.0); NRBC Abs Auto 0.000 X10*3/uL (0.0-0.012); NRBC Pct Auto 0.0 /100WBC (0.0-0.2); Platelet Count 303 X10*3/uL (160-400); Prothrombin Time 11.8 SEC (11.2-13.5); Red Blood Count 5.39 X10*6/uL (4.60-5.80); White Blood Count 8.0 X10*3/uL (4.8-10.8)
== END 2025-01-29 10:17 | disposition home or self-care (01) ==
LOC: HO.10HDL 10:16
PROVIDERS: Visit Provider Nurse Practitioner Family
DX: R93.1 Abnormal findings on diagnostic imaging of heart and coronary circulation (principal)
CPT/HCPCS: 36415; 80048; 85025; 85610

== ENCOUNTER 2025-02-06 09:47 | Outpatient (AMB) | payer OTHER, SELFPAY ==
[2025-02-06 09:54] VITALS: BP 130/100; PULSE 87; O2SAT 96; BMI 33.0
--- NOTE | 2025-02-06 09:54 | MHC.PC.OV ---
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 Accompanied by: Self / Same As Patient Allergies iodine (Iodine) Allergy (Severe, Verified 02/06/25 11:18) Anaphylaxis lisinopril Allergy (Severe, Verified 02/06/25 11:18) Rash metformin Allergy (Severe, Verified 02/06/25 11:18) diarrhea shellfish derived Allergy (Severe, Verified 02/06/25 11:18) Anaphylaxis meperidine (From Demerol) Allergy (Mild, Verified 02/06/25 11:18) RASH oxycodone (From Percocet) Adverse Reaction (Mild, Verified 02/06/25 11:18) MOUTH DRYNESS,RASH Mercury Detox Allergy (Severe, Uncoded 02/06/25 11:18) Throat closing (charcoal) Medication List - Last Reconciled 02/06/25 by Oliverio Emerson MD albuterol sulfate 90 mcg/actuation (Ventolin HFA) 2 puffs PO QID PRN 90 days albuterol sulfate 2.5 mg (3 mL) continuous nebulization QID PRN 30 days alcohol swabs (Alcohol Prep Pads) 1 pad topical QID amlodipine 10 mg PO DAILY 30 days aspirin 81 mg PO DAILY atorvastatin (Lipitor) 10 mg PO BEDTIME azithromycin 250 mg PO 3XW 28 days blood pressure monitor As directed blood sugar diagnostic (FreeStyle Lite Strips) USE DIRECTED TO TEST 5 TIMES DAILY. blood-glucose sensor (FreeStyle Lola 3 Plus Sensor device) Use daily As directed to monitor glucose budesonide 0.5 mg (2 mL) inhalation BID [CANE As directed] cetirizine (Zyrtec) 10 mg PO ONCE cholecalciferol (vitamin D3) (Vitamin D3) 25 mcg PO DAILY clotrimazole 1% 1 appl topical BID 4 weeks [COMPRESSION STOCKINGS (medium compression - 20 to 30 mm); Knee high As directed] diclofenac sodium 1% (Voltaren Arthritis Pain) 4 grams topical QID PRN diphenhydramine HCl (Benadryl) 25 mg orally; Take 1 tablet the morning of day Before CT scan, Take 1 tablet the evening Before the CT scan, Take 1 tablet the DAY of the CT scan ( 2 hours prior) empty container (Sharps Container) use As directed to dispose of sharps famotidine 40 mg PO BID PRN fluticasone furoate-vilanterol 200-25 mcg/dose (Breo Ellipta) 1 inh inhalation DAILY 30 days fluticasone propionate 50 mcg/actuation (Flonase Allergy Relief) 2 sprays intranasal DAILY PRN hydrochlorothiazide 25 mg PO DAILY insulin glargine (Lantus Solostar U-100 Insulin) 10 units (0.1 mL) subcut QPM latanoprost 0.005% 1 drp ophthalmic (eye) DAILY lorazepam 1 to 2 tablets orally twice a day as needed; PRN; 30 days melatonin 5 mg PO BEDTIME PRN methylprednisolone (Medrol) 16 mg orally 2 tablets (32mg) 12 hours before Cardiac cath and 2 tablets ( 32 mg) 2 hours before cardiac cath metoprolol succinate ER 100 mg PO DAILY montelukast 10 mg PO QPM nebulizer and compressor (Portable Nebulizer System) As directed olmesartan 40 mg PO DAILY omeprazole 40 mg PO DAILY semaglutide (Ozempic) 0.5 mg (0.736 mL) subcut QWEEK tamsulosin 0.4 mg PO DAILY 90 days zolpidem 10 mg PO BEDTIME PRN 30 days Tobacco use date assessed: 02/06/25 Dental Screening Dental Screen Date: 02/06/25 Did you have a dental visit in the last 12 months?: No Did you have a dental problem in the last 6 months where you did not have access to dental care?: No Was dental information given to patient?: No HPI follow up HPI Details Patient comes in today for his follow up visit States that he continues to experience increased pain over his right shoulder He was supposed to undergo right shoulder surgery with Orthopedics last week but is surgery has been placed on hold pending cardiology evaluation Patient has been experiencing recurrent chest pain/discomfort and on and off exertional shortness of breath and he is now scheduled for cardiac catheterization at [facility] on 02/18/25 He denies any headaches or dizziness No nausea/vomiting, no abdominal pain No change in bowel habits noted [facility] Medical History Glaucoma Dyspnea Standard chest x-ray abnormal Diabetes mellitus RBBB (right bundle branch block) Laryngospasm Chronic bronchitis Supplemental oxygen dependent Onychomycosis Hx of fracture of fibula GERD without esophagitis Asthma-COPD overlap syndrome Diastasis recti JOSÉ (obstructive sleep apnea) Bursitis Low back pain Claustrophobia Hemoptysis Anxiety Insomnia Migraine Pure hypercholesterolemia Benign essential hypertension Type 2 diabetes mellitus with hyperglycemia, without long-term current use of insulin Stasis edema of both lower extremities Lumbar degenerative disc disease Obesity (BMI 30-39.9) Chronic rhinitis Hiatal hernia Erectile dysfunction Surgical History History of bronchoscopy History of endoscopy Hx of colonoscopy Hx of cardiac catheterization History of nasal surgery History of carpal tunnel surgery Family History Father No problems noted. Mother Chronic kidney disease (CKD) Heart attack Other Mental health problem Social History Household Members: Spouse, Family and Children Household Members Other:: adult children Housing: House Are you a primary out of school hours care worker to a significant other at home: No Do you presently have visiting nurse or other home services: No Alcohol intake: never Patient Tobacco Use Status: Never used Tobacco e-Cigarette/Vaping Use: Never Used Second Hand Smoke Exposure: Yes (employees smoked atwork) service: No Current occupational status: disabled Cognitive needs: No Hearing needs: No Vision needs: No Questionnaire PHQ-9 Over the last 2 weeks, how often have you been bothered by any of the following problems? 1. Little interest or pleasure in doing things: not at all 2. Feeling down, depressed, or hopeless: not at all 3. Trouble falling or staying asleep, or sleeping too much: more than half the days 4. Feeling tired or having little energy: several days 5. Poor appetite or overeating: not at all 6. Feeling bad about yourself - or that you are a failure or have let yourself or your family down: not at all 7. Trouble concentrating on things, such as reading the newspaper or watching television: more than half the days 8. Moving or speaking so slowly that other people could have noticed. Or the opposite - being so fidgety or restless that you have been moving around a lot more than usual: not at all 9. Thoughts that you would be better off or of hurting yourself in some way: not at all Total score: 5 Depression Screening Interpretation: Positive Depression Screening Follow-up: Existing condition and In treatment Depression Screening Done: Yes 63302 - PHQ-9 Billing: Yes Source: Developed by Drs. Oneal Rosenberg, Janelle Blum, Larry Martin and colleagues, with an educational pete from [employer]. Thrive Questionnaire Date Thrive assessed: 02/06/25 I am a: Patient What is your living situation today?: I have a steady place to live Within the past 12 months, did the food you bought not last and you didn't have the money to get more?: I choose not to answer this question Within the past 12 months, did you worry whether your food would run out before you got money to buy more?: I choose not to answer this question Do you have trouble paying for medicines?: I choose not to answer this question Do you have trouble getting transportation to medical appointments?: I choose not to answer this question Do you have trouble paying your heating and electricity bill?: I choose not to answer this question Do you have trouble taking care of your child, family member or friend?: I choose not to answer this question Do you have trouble with day-to-day activities such as bathing, preparing meals, shopping, managing finances, etc.?: I choose not to answer this question Are you currently unemployed and looking for a job?: I choose not to answer this question Are you interested in more education?: I choose not to answer this question Please select the resources that you would like help with: None Currently or been in a relationship where the following occur: No concerns reported THRIVE Score: 0 AUDIT C Alcohol Use Questionnaire (AUDIT-C) 1. How often do you have a drink containing alcohol?: Never 3. How often do you have six or more drinks on one occasion?: Never Total Score: 0 Score Reviewed/Action Taken: Yes MALLORIE-7 AMB Questionnaire MALLORIE-7 Date MALLORIE - 7 assessed: 02/06/25 Feeling nervous, anxious, or on edge: 0 = Not at all Not being able to stop or control worryin = Not at all Worrying too much about different things: 0 = Not at all Trouble relaxin = Several days Being so restless that it is hard to sit still: 0 = Not at all Becoming easily annoyed or irritable: 0 = Not at all Feeling afraid as if something awful might happen: 0 = Not at all Total MALLORIE-7 score (0-4 normal; 5-9 mild; 10-14 moderate; 15-21 severe): 1 Source: Developed by Drs. Oneal Rosenberg, Janelle Blum, Larry Martin and colleagues, with an educational pete from [employer]. Review of Systems Const Denies chills, Denies fatigue, Denies fever(s) and Denies headache(s) ENT Denies dysphagia (resolved with EGD and dilatation in February 2024), Denies dizziness, Denies otalgia, Denies headache(s), Denies neck pain, Denies odynophagia and Denies sore throat Card Reports chest pain (on and off), Denies irregular heart rhythm, Denies palpitations and Reports dyspnea on exertion (frequent) Resp Denies chest congestion, Denies cough, Reports dyspnea on exertion (frequent) and Denies wheezing GI Denies abdominal pain, Denies constipation, Denies dysphagia (resolved with EGD and dilatation in February 2024), Denies heartburn, Denies diarrhea, Denies nausea, Denies odynophagia and Denies vomiting Denies difficulty urinating, Denies dysuria and Denies urinary frequency Musc Reports back pain (chronic - over the lower back), Reports arthralgias (right shoulder), Denies neck pain and Reports tingling (on and off, in both hands and feet) Skin/Breast Denies rash Neuro Denies dizziness, Denies headache(s) and Reports tingling (on and off, in both hands and feet) Psych Reports anxiety Endo Denies fatigue and Denies palpitations Aller/Immun Denies wheezing Physical exam (Primary Care) Vital Signs: Last Vital Signs Pulse 87 02/06/25 09:54 BP 130/100 H 02/06/25 09:54 Pulse Ox 96 02/06/25 09:54 Oxygen Delivery Method Room Air 02/06/25 09:54 BMI result Body Mass Index 33.0 Tobacco/Smoking Status: Tobacco use Status Tobacco use date assessed 02/06/25 02/06/25 09:58 Patient Tobacco Use Status Never used Tobacco 02/06/25 09:58 e-Cigarette/Vaping Use Never Used 02/06/25 09:58 PHQ-9: PHQ-9 Score PHQ-9: Total score 5 02/07/25 05:19 Depression Screening Interpretation: Positive Depression Screening Follow-up: Existing condition and In treatment Thrive Assessment: Date of Thrive Assessment Date Thrive assessed 02/06/25 02/06/25 09:58 Currently or been in a relationship where the following occur: No concerns reported Const General: no acute distress and alert HENMT Ears: TM's normal bilaterally and EAC's normal Throat: Yes posterior oropharynx normal and Yes tonsils normal (no TP congestion) Neck Neck: Yes supple and No lymphadenopathy Thyroid: Thyroid normal Resp Auscultation: clear to auscultation bilaterally, no rales and no wheezes Cardio Rate: regular rate Rhythm: regular rhythm Heart sounds: no murmurs GI Palpation (GI): Soft to palpation and nontender Auscultation: normal bowel sounds General: Yes no CVA tenderness Back/Spine/Pelvis Back: no CVA tenderness Thoracic/Lumbar Spine: lumbar spinal tenderness Skin Rashes: no rashes Extrem General: Yes no clubbing, cyanosis or edema Right upper extremity: shoulder/upper arm Details: tenderness Location: of the A-C joint Results Reviewed Results Reviewed: Laboratory Tests 01/29/25 10:20 WBC 8.0 Hgb 15.7 Hct 47.2 Plt Count 303 Sodium 140 Potassium 3.6 Creatinine 1.15 Estimated GFR > 60 Random Glucose 163 H Calcium 9.8 D Coding Level of Care Code Est Pt Level 4 (44844) Diagnoses Abnormal cardiac CT angiography R93.1 Pure hypercholesterolemia E78.00 Benign essential hypertension I10 Type 2 diabetes mellitus without complication, with long-term current use of insulin E11.9; Z79.4 Diabetes mellitus complication status: without complication Diabetes mellitus residential insulin use: with dedicated intermodal truck 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 use Diabetes mellitus type: type 2 Dysphagia, unspecified type R13.10 Dysphagia type: unspecified Asthma-COPD overlap syndrome J44.9 JOSÉ (obstructive sleep apnea) G47.33 Migraine without status migrainosus, not intractable, unspecified migraine type G43.909 Intractability: not intractable Migraine type: unspecified Status migrainosus presence: without status migrainosus Degeneration of intervertebral disc of lumbar region with discogenic back pain M51.360 Disc-related pain type: discogenic back pain only Primary osteoarthritis, right shoulder M19.011 Insomnia, unspecified type G47.00 Insomnia type: unspecified Anxiety F41.9 Episode of recurrent major depressive disorder, unspecified depression episode severity F33.9 Active/Remission status: currently active Major depression episode severity: unspecified Obesity (BMI 30-39.9) E66.9 Additional Codes PHQ-9 - 61643 - PHQ-9 Billing: Yes ([id number]) Assessment & Plan Assessment & Plan (1) Abnormal cardiac CT angiography: Comment: CTA of coronary arteries 12/11/2024, left main normal, lad 25-49% stenosis proximal, less than 25% mid, moderate ostial 1st diagonal stenosis, FFR 0.77 terminal LAD, left circumflex moderate 50% ostial, 50-69% mid, mild OM1 and moderate OM2 stenosis, large RCA, minimal irregularities less than 25% stenosis Code(s): R93.1 - Abnormal findings on diagnostic imaging of heart and coronary circulation Category: Medical Plan: Patient has complained of experiencing on and off chest tightness with exertional activity and when he is anxious. Cardiac catheterization from 2019 showed no significant CAD Stress echocardiogram on 08/08/2024 with exercise 8 minutes, severe shortness of breath, no chest discomfort and no EKG changes of ischemia. His echo images were nondiagnostic for ischemia. He then had CTA of the coronary arteries which does show [id number] LAD and moderate left circumflex stenosis. FFR 0.77 in the terminal LAD. EKG showed normal sinus rhythm, left axis deviation, right bundle branch block, rate 84 Patient has multiple risk factors, including DM, HTN, hyperlipidemia, obesity He was scheduled for right shoulder arthroplasty and sent for cardiology clearance and was advised to undergo cardiac catheterization for further evaluation - he is now scheduled for this at [facility] early next month Follow up with cardiology as scheduled (2) Pure hypercholesterolemia: Code(s): E78.00 - Pure hypercholesterolemia, unspecified Category: Medical Plan: Patient used to take Atorvastatin 80 mg QD and Ezetimibe 10 mg QD but appears to have stopped taking these on his own some tiime ago - he himself is not sure exactly when he stopped taking these meds or why he stopped them His cholesterol levels appear to be acceptable when last checked in May 2023 (LDL was at 91 mg/dl) so we held off on starting him back on cholesterol meds at his last visit His most recent labs did not include his fasting lipids Will have him recheck his labs and fasting lipids in a few months for follow-up, when he returns for his annual physical examination (3) Benign essential hypertension: Code(s): I10 - Essential (primary) hypertension Category: Medical Plan: Reinforced low sodium diet - goal is systolic BP of 120 mm or less Continue Olmesartan 40 mg QD, Amlodipine 10 mg QD, HCTZ 25 mg QD and He was taken off Metoprolol ER previously due to his asthma but is now back on Metoprolol ER 100 mg QD Patient was also experiencing on and off chest pains when he was taking Hydralazine 100 mg TID He is again reminded to continue monitoring his blood pressure regularly (4) Diabetes mellitus: Code(s): E11.9 - Type 2 diabetes mellitus without complications Category: Medical Qualifiers: Diabetes mellitus complication status: without complication 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 mellitus dedicated intermodal truck driver insulin use: with residential use Diabetes mellitus type: type 2 Qualified Code(s): E11.9 - Type 2 diabetes mellitus without complications; Z79.4 - meterman (current) use of insulin Plan: His HgbA1c was at 7.5% at back on 11/27/2024 - goal is < 7.0% Reinforced diabetic diet Continue Semaglutide 0.5 mg SQ once a week and Lantus 10 units QD Glipizide was discontinued by endocrinology last year as well Follow up with [facility] [place] as scheduled (5) Dysphagia: Comment: Dysphagia to solids Code(s): R13.10 - Dysphagia, unspecified Category: Medical Qualifiers: Dysphagia type: unspecified Qualified Code(s): R13.10 - Dysphagia, unspecified Plan: Patient states that his symptoms have resolved following his EGD with dilatation by Dr. Bowens back in February 2024 Follow up with GI as scheduled (6) Asthma-COPD overlap syndrome: Code(s): J44.9 - Chronic obstructive pulmonary disease, unspecified Category: Medical Plan: Continue Trelegy Ellipta 200-62.5-25 mcg 1 inhalation QD, Montelukast 10 mg Q PM and Albuterol HFA 2 inhalations every 6 hours as needed Padminip was discontinued by pulmonary He is being considered for injection therapy with the newer biologics Follow up with [facility] [place] [facility] as scheduled (7) JOSÉ (obstructive sleep apnea): Comment: JOSÉ W/CPAP-does not always use Code(s): G47.33 - Obstructive sleep apnea (adult) (pediatric) Category: Medical Plan: He does not wear CPAP. He uses oxygen during the night. (8) Migraine: Code(s): G43.909 - Migraine, unspecified, not intractable, without status migrainosus Category: Medical Qualifiers: Intractability: not intractable Migraine type: unspecified Status migrainosus presence: without status migrainosus Qualified Code(s): G43.909 - Migraine, unspecified, not intractable, without status migrainosus Plan: Stable lately He was tried on Topiramate 25 mg Q HS for headache prophylaxis a few years ago but appears to have self-discontinued this shortly afterwards - he does not recall at present whether it helped him back then or not (9) Lumbar degenerative disc disease: Code(s): M51.36 - Other intervertebral disc degeneration, lumbar region Category: Medical Qualifiers: Disc-related pain type: discogenic back pain only Qualified Code(s): M51.360 - Other intervertebral disc degeneration, lumbar region with discogenic back pain only Plan: Reinforced activity and weight-lifting restrictions Continue Gabapentin 400 mg 1 capsule in AM, 1 capsule in PM and 2 capsules at bedtime He has been referred to [facility] [place] for further recommendations and management plan for his chronic low back pain in the past but it does not look like he was ever seen - will refer him again to pain management if needed but patient asked to put this off for now (10) Primary osteoarthritis, right shoulder: Code(s): M19.011 - Primary osteoarthritis, right shoulder Category: Medical Plan: He was scheduled for right shoulder arthroplasty earlier this month by orthopedics but will now need to wait for cardiology clearance before they can proceed with surgery (11) Insomnia: Code(s): G47.00 - Insomnia, unspecified Category: Medical Qualifiers: Insomnia type: unspecified Qualified Code(s): G47.00 - Insomnia, unspecified Plan: Sleep hygiene reinforced Continue Zolpidem 10 mg Q HS PRN; also takes Melatonin 10 mg Q HS PRN He was tried previously on Lunesta but states that he cannot stand its aftertaste (12) Anxiety: Code(s): F41.9 - Anxiety disorder, unspecified Category: Medical Plan: Continue Lorazepam 0.5 mg 1 to 2 tablets BID PRN (13) Major depressive disorder, recurrent: Code(s): F33.9 - Major depressive disorder, recurrent, unspecified Category: Medical Qualifiers: Active/Remission status: currently active Major depression episode severity: unspecified Qualified Code(s): F33.9 - Major depressive disorder, recurrent, unspecified Plan: He was on Sertraline 50 mg QD in the past but stopped taking it at some point - is not sure when or why but states that he feels okay without Rx for now Follow up with psychiatry as scheduled (14) Obesity (BMI 30-39.9): Code(s): E66.9 - Obesity, unspecified Category: Medical Plan: Reinforced diet/exercise as tolerated/lose weight Plan To return as scheduled in May 2025 for his annual physical examination Orders: Orders Complete Blood Count Auto Diff 05/27/25 D64.9 - Anemia, unspecified, Z00.00 - Encounter for general adult medical examination without abnormal findings Comprehensive [place]. Panel Fast 05/27/25 E78.00 - Pure hypercholesterolemia, unspecified, Z00.00 - Encounter for general adult medical examination without abnormal findings Microalbumin, Random (w Creat) 05/27/25 E11.9 - Type 2 diabetes mellitus without complications, Z00.00 - Encounter for general adult medical examination without abnormal findings Hemoglobin A1c 05/27/25 E11.9 - Type 2 diabetes mellitus without complications, Z00.00 - Encounter for general adult medical examination without abnormal findings TSH reflex Free T4 05/27/25 E78.00 - Pure hypercholesterolemia, unspecified, Z00.00 - Encounter for general adult medical examination without abnormal findings UA CC w/rflx Micro + Cult 05/27/25 R30.0 - Dysuria, Z00.00 - Encounter for general adult medical examination without abnormal findings Vitamin D 25-OH Total 05/27/25 E55.9 - Vitamin D deficiency, unspecified, Z00.00 - Encounter for general adult medical examination without abnormal findings Lipid Panel 05/27/25 E78.00 - Pure hypercholesterolemia, unspecified, Z00.00 - Encounter for general adult medical examination without abnormal findings Prostate Specific Antigen 05/27/25 N40.0 - Benign prostatic hyperplasia without lower urinary tract symptoms, Z00.00 - Encounter for general adult medical examination without abnormal findings
--- OUTSIDE RECORDS SUMMARY | 2025-02-06 14:11 | XMS_ITS | Data Portability ---
Author Organization [employer] [facility] [place] inNTQ-Data [facility] Address [address] [place] [address] Care Team Providers Care Software Intern Name Role Phone [facility] Referring Provider [phone] Assessment Encounter Date Assessment Date Assessment LastModified [...] Not Available Not Available Not Available FreeStyle [place] Lite kit active Not Available Not Available [...] Recorded Body temperature Heart rate Oxygen saturation Respiratory rate Systolic And Diastolic Provider Name and Address Organization Details Last Updated DateTime 2 98.3 [degF] 72 /min 98 % 16 /min 145/94 mm[Hg] Not Available [facility] - production 2 12:49:01 Social History None recorded. Functional Status None recorded. Mental Status None recorded. Family History Nothing Reported. Medical History No medical history recorded. Past Encounters Encounter ID Performer Location Encounter Start Date Encounter Closed Date Diagnosis/Indication Diagnosis SNOMED-CT Code Diagnosis ICD10 Code Diagnosis IMO Codes Diagnosis Note [id number] Esa Ohara MD Main - [facility] [address] [place] [address] 11/15/2021 12:48:47 11/25/2021 13:00:36 Dyspnea [id number] R06.00 Health Concerns Section Related Observation LastModified by Organization Detai ls LastModified Time None Recorded Concern Status LastModified by Organization Details LastModified Time None Recorded Advance Directives Directive None Recorded Payers Insurance Date Sequence Insurance Name Policy Number Policy Reyna Covered Member ID Reyna Member ID Guarantor Name 11/15/2021 1 [facility] - DOS PRIOR TO 2022 - DUAL ELIGIBLE (MEDICARE REPLACEMENT/ADV ANTAGE - HMO) Keaton Cullen [id number] Keaton Cullen Notes Date Note Type Note [...] ..................... ..................... ..................... ..................... ..................... ..................... ............... Tube Man Note: Pt states he is on day 3 of chest tightness. Pt admits that laying flat and exerting himself causes SOB. Pt states he uses his nebulizer but it doesn t help much. No noted edema. 12 lead showed RBBB. Pt doesn t think he had that before. [facility] advised that Pt needs to follow up with PCP for echo/chest X-ray but if the tightness or sob got worse he needed to go to ED. Red flags discussed ..................... ..................... ..................... ..................... ..................... ..................... ............... Disposition: Fulfilled Esa Ohara MD [address] [place] [address],[address], [place], [address], KINGA STEELE 11/15/2021 19:11:47
== END 2025-02-06 11:36 | disposition home or self-care (01) ==
LOC: HO.HMCH 09:48
PROVIDERS: PCP Internal Medicine; Visit Provider Internal Medicine
DX: E11.9 Type 2 diabetes mellitus without complications (principal); Z79.4 Long term (current) use of insulin; J44.9 Chronic obstructive pulmonary disease, unspecified; E66.9 Obesity, unspecified; Z68.33 Body mass index [BMI] 33.0-33.9, adult; R93.1 Abnormal findings on diagnostic imaging of heart and coronary circulation; E78.00 Pure hypercholesterolemia, unspecified; I10 Essential (primary) hypertension; R13.10 Dysphagia, unspecified; G47.33 Obstructive sleep apnea (adult) (pediatric); G43.909 Migraine, unspecified, not intractable, without status migrainosus; M51.360 Other intervertebral disc degeneration, lumbar region with discogenic back pain only; M19.011 Primary osteoarthritis, right shoulder; G47.00 Insomnia, unspecified; F41.9 Anxiety disorder, unspecified; F33.9 Major depressive disorder, recurrent, unspecified

== ENCOUNTER → 2025-02-06 09:47 | Outpatient (BNVA) | payer OTHER, SELFPAY | PROVIDERS: PCP Internal Medicine; Visit Provider Internal Medicine | DX: R93.1 Abnormal findings on diagnostic imaging of heart and coronary circulation (principal); E78.00 Pure hypercholesterolemia, unspecified; I10 Essential (primary) hypertension; E11.9 Type 2 diabetes mellitus without complications; R13.10 Dysphagia, unspecified; J44.9 Chronic obstructive pulmonary disease, unspecified; G47.33 Obstructive sleep apnea (adult) (pediatric); G43.909 Migraine, unspecified, not intractable, without status migrainosus; M51.360 Other intervertebral disc degeneration, lumbar region with discogenic back pain only; M19.011 Primary osteoarthritis, right shoulder; G47.00 Insomnia, unspecified; F41.9 Anxiety disorder, unspecified; F33.9 Major depressive disorder, recurrent, unspecified; E66.9 Obesity, unspecified; Z68.33 Body mass index [BMI] 33.0-33.9, adult | CPT/HCPCS: 96127; 99212 ==

== ENCOUNTER → 2025-02-18 23:59 | Outpatient (BNV) | payer OTHER, SELFPAY | PROVIDERS: PCP Internal Medicine; Visit Provider Internal Medicine Cardiovascular Disease | DX: I25.118 Atherosclerotic heart disease of native coronary artery with other forms of angina pectoris (principal) | CPT/HCPCS: 93458; 99152 ==

== ENCOUNTER 2025-03-03 10:01 | Outpatient (AMB) | payer OTHER, SELFPAY ==
[2025-03-03 10:03] VITALS: BP 162/100; PULSE 92; O2SAT 98; BMI 34.4
--- NOTE | 2025-03-03 10:03 | A.OFFVIS_ITS ---
Vital Signs 03/03/25 10:03 Height 5 ft 8 in Weight 226 lb 3.108 oz BMI 34.4 BP 162/100 H Blood Pressure Location Lt brachial Position Sitting Pulse 92 Pulse Source Pulse Oximeter Pulse Oximetry (%) 98 Oxygen Delivery Method Room Air Intake Visit Reasons: dm f/u Intake Note: Patient present today for Type 2 Diabetes Mellitus Last Diabetic eye exam: Last exam was approximately August-September 2024 Last Podiatry Visit: Last visit was approximately 6 months ago Random Glucose: 181 mg/dl HgA1C: 7.2% Defective Cigarette Slitter Required: No Accompanied by: Self / Same As Patient Allergies iodine (Iodine) Allergy (Severe, Verified 03/03/25 10:11) Anaphylaxis lisinopril Allergy (Severe, Verified 03/03/25 10:11) Rash metformin Allergy (Severe, Verified 03/03/25 10:11) diarrhea shellfish derived Allergy (Severe, Verified 03/03/25 10:11) Anaphylaxis meperidine (From Demerol) Allergy (Mild, Verified 03/03/25 10:11) RASH oxycodone (From Percocet) Adverse Reaction (Mild, Verified 03/03/25 10:11) MOUTH DRYNESS,RASH Mercury Detox Allergy (Severe, Uncoded 03/03/25 10:11) Throat closing (charcoal) Medication List - Last Reconciled 03/03/25 by Rae Oconnor PA-C albuterol sulfate 90 mcg/actuation (Ventolin HFA) 2 puffs PO QID PRN 90 days albuterol sulfate 2.5 mg (3 mL) continuous nebulization QID PRN 30 days alcohol swabs (Alcohol Prep Pads) 1 pad topical QID amlodipine 10 mg PO DAILY 30 days aspirin 81 mg PO DAILY atorvastatin (Lipitor) 10 mg PO BEDTIME azithromycin 250 mg PO 3XW blood pressure monitor As directed blood sugar diagnostic (FreeStyle Lite Strips) USE DIRECTED TO TEST 5 TIMES DAILY. blood-glucose sensor (FreeStyle Lola 3 Plus Sensor device) Use daily As directed to monitor glucose budesonide 0.5 mg (2 mL) inhalation BID [CANE As directed] cetirizine (Zyrtec) 10 mg PO ONCE cholecalciferol (vitamin D3) (Vitamin D3) 25 mcg PO DAILY clotrimazole 1% 1 appl topical BID 4 weeks [COMPRESSION STOCKINGS (medium compression - 20 to 30 mm); Knee high As directed ] diclofenac sodium 1% (Voltaren Arthritis Pain) 4 grams topical QID PRN diphenhydramine HCl (Benadryl) 25 mg orally; Take 1 tablet the morning of day Before CT scan, Take 1 tablet the evening Before the CT scan, Take 1 tablet the DAY of the CT scan ( 2 hours prior) empty container (Sharps Container) use As directed to dispose of sharps famotidine 40 mg PO BID PRN fluticasone furoate-vilanterol 200-25 mcg/dose (Breo Ellipta) 1 inh inhalation DAILY 30 days fluticasone propionate 50 mcg/actuation (Flonase Allergy Relief) 2 sprays intranasal DAILY PRN hydrochlorothiazide 25 mg PO DAILY insulin glargine (Lantus Solostar U-100 Insulin) 10 units (0.1 mL) subcut QPM latanoprost 0.005% 1 drp ophthalmic (eye) DAILY lorazepam 1 to 2 tablets orally twice a day as needed; PRN; 30 days melatonin 5 mg PO BEDTIME PRN methylprednisolone (Medrol) 16 mg orally 2 tablets (32mg) 12 hours before Cardiac cath and 2 tablets ( 32 mg) 2 hours before cardiac cath metoprolol succinate ER 100 mg PO DAILY montelukast 10 mg PO QPM nebulizer and compressor (Portable Nebulizer System) As directed olmesartan 40 mg PO DAILY omeprazole 40 mg PO DAILY pen needle, diabetic Use daily As directed tamsulosin 0.4 mg PO DAILY 90 days zolpidem 10 mg PO BEDTIME PRN 30 days HPI HPI dm f/u: Details: Patient is a 59 year-old male with a significant past medical history of controlled 2 diabetes, hyperlipidemia, hypertension, COPD with asthma overlap presenting today for a diabetic follow-up. Endo: His last A1c was 7.5 and today is 7.2.. He is on Ozempic 0.5 mg, and Lantus 10 units daily Ozempic is making him feel sick with the 0.5 mg of ozempic. -He did get some nausea with the higher doses of Mounjaro. He had nausea with Trulicity at higher doses. Tried Jardiance but made him feel sick and experienced urinary symptoms. 77% in range 23% hyperglycemia, 0% lows. -follows routinely with ophthalmology CV: Blood pressure today in the office is 160/100. He has not yet taken his medication. He states he barely slept last night and then rushed here and did not take his meds yet. He is on amlodipine 10 mg, metoprolol 100 mg daily, hydrochlorothiazide 25 mg and olmesartan 40 mg daily.. Pt has follow up with cards. on lipitor 10 mg. [facility] Medical History Glaucoma Dyspnea Standard chest x-ray abnormal Diabetes mellitus RBBB (right bundle branch block) Laryngospasm Chronic bronchitis Supplemental oxygen dependent Onychomycosis Hx of fracture of fibula GERD without esophagitis Asthma-COPD overlap syndrome Diastasis recti JOSÉ (obstructive sleep apnea) Bursitis Low back pain Claustrophobia Hemoptysis Anxiety Insomnia Migraine Pure hypercholesterolemia Benign essential hypertension Type 2 diabetes mellitus with hyperglycemia, without long-term current use of insulin Stasis edema of both lower extremities Lumbar degenerative disc disease Obesity (BMI 30-39.9) Chronic rhinitis Hiatal hernia Erectile dysfunction Surgical History History of bronchoscopy History of endoscopy Hx of colonoscopy Hx of cardiac catheterization History of nasal surgery History of carpal tunnel surgery Family History Father No problems noted. Mother Chronic kidney disease (CKD) Heart attack Other Mental health problem Social History Household Members: Spouse, Family and Children Household Members Other:: adult children Housing: House Are you a primary director of critical care to a significant other at home: No Do you presently have visiting nurse or other home services: No Alcohol intake: never Patient Tobacco Use Status: Never used Tobacco e-Cigarette/Vaping Use: Never Used Second Hand Smoke Exposure: Yes (employees smoked atwork) service: No Current occupational status: disabled Cognitive needs: No Hearing needs: No Vision needs: No Physical Exam Vital Signs: Last Vital Signs Pulse 92 03/03/25 10:03 BP 162/100 H 03/03/25 10:03 Pulse Ox 98 03/03/25 10:03 Oxygen Delivery Method Room Air 03/03/25 10:03 BMI result Body Mass Index 34.4 Const Orientation/consciousness: patient oriented x3 HEENT Ears: hearing grossly normal bilaterally Neck Thyroid: Thyroid normal Lymphatic: no lymphadenopathy noted Resp Auscultation: clear to auscultation bilaterally Cardio Rate: regular rate Rhythm: regular rhythm Heart sounds: S1 normal heart sound present and S2 normal heart sound present Skin General skin exam: no rashes or lesions noted Neuro General: patient oriented x3, gait normal and no focal motor deficits Results AMB Hemoglobin A1c AMB Hemoglobin A1c 7.2 % Last Edit by JAKI Hassan on 03/03/25 10:29 Results Reviewed Results Reviewed: Laboratory Last Values Glucose (Clinic) 181 mg/dL (60-115) H 03/03/25 10:12 Laboratory Tests 01/29/25 10:20 Creatinine 1.15 Estimated GFR > 60 Random Glucose 163 H Assessment & Plan Assessment & Plan (1) Type 2 diabetes, controlled, with peripheral neuropathy: Code(s): E11.42 - Type 2 diabetes mellitus with diabetic polyneuropathy Category: Medical Plan: switch back to mounjaro. Continue with the Lantus We will follow up in a few months. Sooner if need patient understands and agrees with this plan. (2) Benign essential hypertension: Code(s): I10 - Essential (primary) hypertension Category: Medical Plan: elevated bp but did not take meds advised to take meds (3) Pure hypercholesterolemia: Code(s): E78.00 - Pure hypercholesterolemia, unspecified Category: Medical Plan: continue Lipitor 10 mg nightly. Discussed risks and benefits and adverse effects of this medication. . Orders: Orders AMB Hemoglobin A1c Today E11.42 - Type 2 diabetes mellitus with diabetic polyneuropathy, Z13.9 - Encounter for screening, unspecified Medications: New tirzepatide (Mounjaro) 2.5 mg (0.5 mL) subcut QWEEK 2 mL 2RF Coding Level of Care Code Est Pt Level 4 (98647) Add On Problem Visit Only Diagnoses Type 2 diabetes, controlled, with peripheral neuropathy E11.42 Benign essential hypertension I10 Pure hypercholesterolemia E78.00
[2025-03-03 10:16] LABS: Glucose, Whole Blood 181 mg/dL (60-115)
== END 2025-03-03 10:30 | disposition home or self-care (01) ==
LOC: HO.ENCR 10:02
PROVIDERS: PCP Internal Medicine; Visit Provider Physician Assistant
DX: E11.42 Type 2 diabetes mellitus with diabetic polyneuropathy (principal); I10 Essential (primary) hypertension; E78.00 Pure hypercholesterolemia, unspecified; Z13.9 Encounter for screening, unspecified

== ENCOUNTER → 2025-03-03 10:01 | Outpatient (BNVA) | payer OTHER, SELFPAY | PROVIDERS: PCP Internal Medicine; Visit Provider Physician Assistant | DX: E11.42 Type 2 diabetes mellitus with diabetic polyneuropathy (principal); I10 Essential (primary) hypertension; E78.00 Pure hypercholesterolemia, unspecified; Z79.4 Long term (current) use of insulin | CPT/HCPCS: 82947; 83036; 99212 ==

== ENCOUNTER 2025-03-04 09:26 | Outpatient (AMB) | payer OTHER, SELFPAY ==
--- NOTE | 2025-03-04 09:28 | MHC.OFFVIS ---
Vital Signs 03/04/25 09:29 Height 5 ft 8 in Weight 222 lb 10.67 oz BMI 33.9 BP 124/82 Blood Pressure Location Lt brachial Position Sitting Pulse 92 Pulse Source Pulse Oximeter Intake Visit Reasons: Follow up post cardiac cath [employer] Required: No Allergies iodine (Iodine) Allergy (Severe, Verified 03/04/25 09:31) Anaphylaxis lisinopril Allergy (Severe, Verified 03/04/25 09:31) Rash metformin Allergy (Severe, Verified 03/04/25 09:31) diarrhea shellfish derived Allergy (Severe, Verified 03/04/25 09:31) Anaphylaxis meperidine (From Demerol) Allergy (Mild, Verified 03/04/25 09:31) RASH oxycodone (From Percocet) Adverse Reaction (Mild, Verified 03/04/25 09:31) MOUTH DRYNESS,RASH Mercury Detox Allergy (Severe, Uncoded 03/04/25 09:31) Throat closing (charcoal) Medication List - Last Reconciled 03/04/25 by FABRICIO Chapman albuterol sulfate 90 mcg/actuation (Ventolin HFA) 2 puffs PO QID PRN 90 days albuterol sulfate 2.5 mg (3 mL) continuous nebulization QID PRN 30 days alcohol swabs (Alcohol Prep Pads) 1 pad topical QID amlodipine 10 mg PO DAILY 30 days aspirin 81 mg PO DAILY atorvastatin (Lipitor) 10 mg PO BEDTIME azithromycin 250 mg PO 3XW blood pressure monitor As directed blood sugar diagnostic (FreeStyle Lite Strips) USE DIRECTED TO TEST 5 TIMES DAILY. blood-glucose sensor (FreeStyle Lola 3 Plus Sensor device) Use daily As directed to monitor glucose budesonide 0.5 mg (2 mL) inhalation BID [CANE As directed] cetirizine (Zyrtec) 10 mg PO ONCE cholecalciferol (vitamin D3) (Vitamin D3) 25 mcg PO DAILY clotrimazole 1% 1 appl topical BID 4 weeks [COMPRESSION STOCKINGS (medium compression - 20 to 30 mm); Knee high As directed] diclofenac sodium 1% (Voltaren Arthritis Pain) 4 grams topical QID PRN diphenhydramine HCl (Benadryl) 25 mg orally; Take 1 tablet the morning of day Before CT scan, Take 1 tablet the evening Before the CT scan, Take 1 tablet the DAY of the CT scan ( 2 hours prior) empty container (Sharps Container) use As directed to dispose of sharps famotidine 40 mg PO BID PRN fluticasone furoate-vilanterol 200-25 mcg/dose (Breo Ellipta) 1 inh inhalation DAILY 30 days fluticasone propionate 50 mcg/actuation (Flonase Allergy Relief) 2 sprays intranasal DAILY PRN hydrochlorothiazide 25 mg PO DAILY insulin glargine (Lantus Solostar U-100 Insulin) 10 units (0.1 mL) subcut QPM latanoprost 0.005% 1 drp ophthalmic (eye) DAILY lorazepam 1 to 2 tablets orally twice a day as needed; PRN; 30 days melatonin 5 mg PO BEDTIME PRN metoprolol succinate ER 100 mg PO DAILY montelukast 10 mg PO QPM nebulizer and compressor (Portable Nebulizer System) As directed olmesartan 40 mg PO DAILY omeprazole 40 mg PO DAILY pen needle, diabetic Use daily As directed zolpidem 10 mg PO BEDTIME PRN 30 days HPI HPI Follow up post cardiac cath: Details: Keaton is a 59 year old male with past medical history of obesity, hypertension, hyperlipidemia, diabetes, sleep apnea with O2 use, right bundle branch block, anxiety, asthma, chest discomfort who recently had a CTA of the coronary arteries showing [id number] CAD with reduced FFR in the terminal LAD who then had cardiac catheterization showing moderate coronary artery disease that is managed medically. He now presents for follow-up. Today he reports he is still getting his same symptoms of some shortness of breath with exertion and chest tightness when walking distances. He has a history of asthma and states it is well controlled. His symptoms are not worsening with time. At times he will feel his heart beating fast. No dizziness, presyncope, syncope, falls. Taking meds as directed. Reports his blood pressure is variable office visits. Does not check blood pressure readings at home. He hoping to have orthopedic surgery in the near future. [facility] Medical History Glaucoma Dyspnea Standard chest x-ray abnormal Diabetes mellitus RBBB (right bundle branch block) Laryngospasm Chronic bronchitis Supplemental oxygen dependent Onychomycosis Hx of fracture of fibula GERD without esophagitis Asthma-COPD overlap syndrome Diastasis recti JOSÉ (obstructive sleep apnea) Bursitis Low back pain Claustrophobia Hemoptysis Anxiety Insomnia Migraine Pure hypercholesterolemia Benign essential hypertension Type 2 diabetes mellitus with hyperglycemia, without long-term current use of insulin Stasis edema of both lower extremities Lumbar degenerative disc disease Obesity (BMI 30-39.9) Chronic rhinitis Hiatal hernia Erectile dysfunction Surgical History S/P cardiac cath History of bronchoscopy History of endoscopy Hx of colonoscopy Hx of cardiac catheterization History of nasal surgery History of carpal tunnel surgery Family History Father No problems noted. Mother Chronic kidney disease (CKD) Heart attack Other Mental health problem Social History Household Members: Spouse, Family and Children Household Members Other:: adult children Housing: House Are you a primary home care specialist to a significant other at home: No Do you presently have visiting nurse or other home services: No Alcohol intake: never Patient Tobacco Use Status: Never used Tobacco e-Cigarette/Vaping Use: Never Used Second Hand Smoke Exposure: Yes (employees smoked atwork) service: No Current occupational status: disabled Cognitive needs: No Hearing needs: No Vision needs: No Review of Systems Const All systems reviewed & are unremarkable except as noted in HPI and below ENT Denies dizziness Card Denies chest pain, Denies chest pain at rest, Denies chest pain with activity, Denies rapid heart rate, Denies pedal edema, Denies edema, Denies leg edema, Denies lightheadedness, Denies palpitations, Reports dyspnea, Reports dyspnea on exertion and Denies orthopnea Resp Denies cough, Reports dyspnea and Reports dyspnea on exertion GI Denies hematochezia and Denies change in stool character Musc Denies abnormal gait, Denies limited range of motion, Denies muscle cramps, Denies muscle weakness, Denies numbness, Denies radiating pain into limb, Denies stiffness and Denies tingling Neuro Denies abnormal gait, Denies dizziness, Denies numbness and Denies tingling Endo Denies palpitations Physical Exam Vital Signs: BMI result Body Mass Index 33.9 Const General: cooperative, healthy appearing, comfortable and no acute distress Orientation/consciousness: patient oriented x3 Neck Neck: Yes normal visual inspection and Yes no JVD Resp Effort & Inspection: normal respiratory effort Auscultation: clear to auscultation bilaterally, no crackles, no rales, no rhonchi and no wheezes Cardio Rate: regular rate Rhythm: regular rhythm Heart sounds: S1 normal heart sound present, S2 normal heart sound present, no gallops, no murmurs and no rubs Neuro General: patient oriented x3 Extrem Other: right radial cath site healing well General: Yes normal to inspection, No no pedal edema and No calf tenderness Psych Appearance: grossly normal Mental Status: mental status grossly normal Speech and movement: Normal speech and movement present Assessment & Plan Assessment & Plan (1) Chest discomfort: Code(s): R07.89 - Other chest pain Category: Medical Plan: Report of chest tightness and shortness of breath with exertional activity and when he is anxious. He does have multiple cardiac risk factors including diabetes, hypertension, hyperlipidemia, obesity. Cardiac catheterization from 2019 showed no significant CAD. Stress echocardiogram on 08/08/2024 with exercise 8 minutes, severe shortness of breath, no chest discomfort and no EKG changes of ischemia. His echo images were nondiagnostic for ischemia. He then had CTA of the coronary arteries which does show [id number] LAD and moderate left circumflex stenosis. FFR 0.77 in the terminal LAD. Cardiac catheterization was completed on 02/18/2025 showing moderate coronary artery disease in the LAD, 3rd diagonal and RCA -that will be managed medically. He is on metoprolol XL 100 mg daily and amlodipine as antianginals. Discussed adding isosorbide however he reports getting headaches already from hydralazine and we agreed to hold off on adding this medication. He is on aspirin daily. Will increase his atorvastatin to high-dose 80 mg daily. Plan for fasting lipids and LFT in 2 months. His symptoms may be related to asthma, hypertension. Recommend home monitoring of blood pressure. No med changes at present. Signs and symptoms of angina reviewed. Cardiology follow-up 6 months, sooner if needed. (2) S/P cardiac cath: Comment: 02/18/2025 left main normal lad mid to distal 60% stenosis 3rd diagonal ostial 80% RCA distally 65% stenosis Code(s): Z98.890 - Other specified postprocedural states Category: Surgical (3) Abnormal cardiac CT angiography: Comment: CTA of coronary arteries 12/11/2024, left main normal, lad 25-49% stenosis proximal, less than 25% mid, moderate ostial 1st diagonal stenosis, FFR 0.77 terminal LAD, left circumflex moderate 50% ostial, 50-69% mid, mild OM1 and moderate OM2 stenosis, large RCA, minimal irregularities less than 25% stenosis Code(s): R93.1 - Abnormal findings on diagnostic imaging of heart and coronary circulation Category: Medical Plan: As above (4) Coronary artery disease: Code(s): I25.10 - Atherosclerotic heart disease of [place] coronary artery without angina pectoris Category: Medical Plan: Moderate coronary artery disease. Diagnosis reviewed with him in detail in the need for risk factor modification. Medical management at this time. (5) Hypertension: Code(s): I10 - Essential (primary) hypertension Category: Medical Qualifiers: Hypertension type: primary hypertension Qualified Code(s): I10 - Essential (primary) hypertension Plan: Blood pressure goal less than 130/80. Normal at this time. Continue amlodipine, metoprolol, hydralazine, hydrochlorothiazide and olmesartan. (6) RBBB: Code(s): I45.10 - Unspecified right bundle-branch block Category: Medical Plan: Chronic finding. (7) JOSÉ (obstructive sleep apnea): Comment: JSOÉ W/CPAP-does not always use Code(s): G47.33 - Obstructive sleep apnea (adult) (pediatric) Category: Medical Plan: He does not wear CPAP. He uses oxygen during the night. (8) Pure hypercholesterolemia: Code(s): E78.00 - Pure hypercholesterolemia, unspecified Category: Medical Plan: [place] LDL goal less than 70 in patient with diabetes. Labs done 11/27/2024 showed LDL 146. Will increase his atorvastatin up to 80 mg daily. Will check fasting lipids and LFT in 2 months. (9) Preop cardiovascular exam: Code(s): Z01.810 - Encounter for preprocedural cardiovascular examination Category: Medical Plan: Preop for right shoulder arthroplasty, Dr. Aguillon at [facility] and probable wrist surgery in the near future. He can proceed with intermediate cardiac risk. He has moderate coronary artery disease. Aspirin can be held as needed for the procedure and plan restart as soon as cleared by surgeon to do so. Continue all other cardiac and blood pressure medications. Call/consult Cardiology if needed. Plan I reviewed the results of the patient's recent cardiac catheterization with him, explaining that while he has moderate coronary artery disease, the blockages are not severe enough to require stenting at this time. I emphasized that the primary goal is medical management to stabilize the plaque and prevent progression. We discussed increasing his atorvastatin dose significantly from 10 mg to 80 mg to aggressively lower his cholesterol. The patient expressed concerns about his symptoms, including fatigue and shortness of breath, as well as medication side effects like headaches from hydralazine. I acknowledged that his symptoms may be medication-related rather than from his heart disease itself. We discussed possibly replacing hydralazine with isosorbide but decided against it due to the risk of worsening his headaches. I informed the patient that he is cleared to proceed with planned shoulder or wrist surgery, noting he is at an intermediate cardiac risk. I instructed him to complete a fasting cholesterol lab in about two months and to follow up with me in six months, advising him to contact us sooner if he experiences worsening chest pain or shortness of breath on exertion. Orders: Orders Liver Panel Today E78.00 - Pure hypercholesterolemia, unspecified Lipid Panel Today E78.00 - Pure hypercholesterolemia, unspecified Medications: New atorvastatin (Lipitor) dose increased 80 mg PO BEDTIME 30 tabs 5RF Discontinued atorvastatin (Lipitor) Discontinued Reason: Doctor's Order 10 mg PO BEDTIME 90 tabs 1RF Patient Instructions: - I have increased your cholesterol medication, atorvastatin, to 80 mg daily. - It is important to take this to help stabilize the cholesterol buildup in your arteries. - Continue to take your daily aspirin. - In about two months, please go to the lab for a fasting blood test to check your cholesterol levels. - You are cleared to proceed with your planned wrist or shoulder surgery. - Please schedule a follow-up appointment in this office in six months. - Contact our office sooner if you experience any worsening of your breathing, new or worsening chest pains, or chest symptoms with activity. Patient was informed and verbally consented to the use of an ambient scribe for clinic note documentation during this visit. Visit time spent on chart review, interview, assessment, orders, documentation. Coding Level of Care Code Est Pt Level 4 (83333) Add On Problem Visit Only Diagnoses Chest discomfort R07.89 S/P cardiac cath Z98.[address] angiography R93.1 Coronary artery disease I25.10 Primary hypertension I10 Hypertension type: primary hypertension RBBB I45.10 JOSÉ (obstructive sleep apnea) G47.33 Pure hypercholesterolemia E78.00 Preop cardiovascular exam Z01.810 Time Spent (min) 30
[2025-03-04 09:29] VITALS: BP 124/82; PULSE 92; BMI 33.9
--- OUTSIDE RECORDS SUMMARY | 2025-03-04 10:56 | XMS_ITS | Clinical Summary ---
Author Organization [facility] Address [address] [place] [address] [place] [id number] Phone Care Team Providers Care Interceptor Operator Name Role Phone Oliverio Emerson MD Primary Care Provider [phone] Allergies Active Allergy Reactions Criticality Noted Date [...] file Insurance MEDICARE PART A & B [facility] ONE CARE MEDICARE REPLACEMENT [place] [id number] MEDICARE PART A & B Member Subscriber Plan / Payer (Ef fective 1992-Present) Name:Keaton Cullen Member ID:[id number] Relation to Subscriber:Self Name:Keaton Cullen Subscriber ID:[id number] Payer ID:[id number] Group ID:Not on file Type:Medicare Address: [employer] [address] ONE CARE MEDICARE REPLACEMENT MEDICARE PART A & B CARE MEDICARE REPLACEMENT MEDICARE PART A & B ONE CARE MEDICARE REPLACEMENT Member Subscriber Plan / Payer ( fective 2018-Present) Name:Keaton Cullen Relation to Subscriber:Self Name:Keaton Cullen Payer ID:[id number] (NAIC) Group ID:[id number] Type:Medicare [address] [facility] MEDICARE PART A & B [facility] CARE MEDICARE REPLACEMENT MEDICARE PART A & B ONE CARE MEDICARE REPLAC[place] [address] MEDICARE PART A & B [id number] [place] [address] ONE CARE MEDICARE REPLACEMENT MEDICARE PART A & B CARE MEDICARE REPLACEMENT [place] [facility] MEDICARE PART A & B CARE MEDICARE REPLACEMENT Care Teams Interceptor Operator Relationship Specialty Start Date End Date Oliverio Emerson MD [address] [place] [address] [place] [address] PCP - General Internal Medicine 11/15/21 Additional Source Comments The information contained in this document represents components of the legal health record. It is not the complete legal health record.[facility]
--- OUTSIDE RECORDS SUMMARY | 2025-03-04 10:56 | XMS_ITS | Clinical Summary ---
Author Organization [address] [facility] Address [address] [place] [address] Phone Care Team Providers Care Outboard Technician Name Role Phone Oliverio Emerson MD [...] Group ID:[id number] Type:Not on file Address: [address] [place] [id number] Care Teams Outboard Technician Relationship Specialty Start Date End Date Oliverio Emerson MD [address] [place] [address] [address] [place] PCP - General 02/21/22
== END 2025-03-04 10:00 | disposition home or self-care (01) ==
LOC: HO.HCS 09:26
PROVIDERS: PCP Internal Medicine; Visit Provider Nurse Practitioner Family
DX: R07.89 Other chest pain (principal); Z98.890 Other specified postprocedural states; R93.1 Abnormal findings on diagnostic imaging of heart and coronary circulation; I25.10 Atherosclerotic heart disease of native coronary artery without angina pectoris; I10 Essential (primary) hypertension; I45.10 Unspecified right bundle-branch block; G47.33 Obstructive sleep apnea (adult) (pediatric); E78.00 Pure hypercholesterolemia, unspecified; Z01.810 Encounter for preprocedural cardiovascular examination
CPT/HCPCS: 99214; G2211

== ENCOUNTER → 2025-03-04 09:26 | Outpatient (BNVA) | payer OTHER, SELFPAY | PROVIDERS: PCP Internal Medicine; Visit Provider Nurse Practitioner Family | DX: R07.89 Other chest pain (principal); R93.1 Abnormal findings on diagnostic imaging of heart and coronary circulation; I25.10 Atherosclerotic heart disease of native coronary artery without angina pectoris; I10 Essential (primary) hypertension; I45.10 Unspecified right bundle-branch block; G47.33 Obstructive sleep apnea (adult) (pediatric); E78.00 Pure hypercholesterolemia, unspecified; Z01.810 Encounter for preprocedural cardiovascular examination; Z98.890 Other specified postprocedural states | CPT/HCPCS: 99212 ==

== ENCOUNTER 2025-03-18 12:59 | Outpatient (AMB) | payer OTHER, SELFPAY ==
[2025-03-18 13:10] VITALS: BP 132/80; PULSE 78; TEMP 36.8; O2SAT 97; BMI 34.1
--- NOTE | 2025-03-18 13:10 | MHC.OFFWIV ---
Intake Vital Signs 03/18/25 13:10 Height 5 ft 8 in Weight 224 lb BMI 34.1 BP 132/80 Blood Pressure Location Lt brachial Position Sitting Pulse 78 Pulse Source Pulse Oximeter Temp 98.3 F Temp Source Oral Pulse Oximetry (%) 97 Oxygen Delivery Method Room Air Intake Visit Reasons: EP-chest congestion, cough, body ache Intake Note: Patient presents c/o chest congestion, cough, body aches - started yesterday Patient Tobacco Use Status: Never used Tobacco Allergies iodine (Iodine) Allergy (Severe, Verified 03/18/25 13:13) Anaphylaxis lisinopril Allergy (Severe, Verified 03/18/25 13:13) Rash metformin Allergy (Severe, Verified 03/18/25 13:13) diarrhea shellfish derived Allergy (Severe, Verified 03/18/25 13:13) Anaphylaxis meperidine (From Demerol) Allergy (Mild, Verified 03/18/25 13:13) RASH oxycodone (From Percocet) Adverse Reaction (Mild, Verified 03/18/25 13:13) MOUTH DRYNESS,RASH Mercury Detox Allergy (Severe, Uncoded 03/18/25 13:13) Throat closing (charcoal) HPI HPI Comments History of Present Illness Details History - The patient is a 59 year old male presenting with a cough and chest congestionx 1 day - His symptoms began yesterday and include body aches, general fatigue, chest tightness, and pain upon deep inspiration. - He denies any fevers, chills, nausea, vomiting, or diarrhea. - He has a history of asthma and has a Ventolin inhaler, which he has been using for shortness of breath, but it only provides partial relief for his chest tightness. - He has a history of requiring oral steroids for past exacerbations. - He also has a history of hypertension. - His sister recently had pneumonia, his son is sick with similar symptoms but did not get a formal diagnosis at a doctors office. [facility] Medical History Glaucoma Dyspnea Standard chest x-ray abnormal Diabetes mellitus RBBB (right bundle branch block) Laryngospasm Chronic bronchitis Supplemental oxygen dependent Onychomycosis Hx of fracture of fibula GERD without esophagitis Asthma-COPD overlap syndrome Diastasis recti JOSÉ (obstructive sleep apnea) Bursitis Low back pain Claustrophobia Hemoptysis Anxiety Insomnia Migraine Pure hypercholesterolemia Benign essential hypertension Type 2 diabetes mellitus with hyperglycemia, without long-term current use of insulin Stasis edema of both lower extremities Lumbar degenerative disc disease Obesity (BMI 30-39.9) Chronic rhinitis Hiatal hernia Erectile dysfunction Surgical History S/P cardiac cath History of bronchoscopy History of endoscopy Hx of colonoscopy Hx of cardiac catheterization History of nasal surgery History of carpal tunnel surgery Family History Father No problems noted. Mother Chronic kidney disease (CKD) Heart attack Other Mental health problem Social History Household Members: Spouse, Family and Children Household Members Other:: adult children Housing: House Are you a primary restorative care technician to a significant other at home: No Do you presently have visiting nurse or other home services: No Alcohol intake: never Patient Tobacco Use Status: Never used Tobacco e-Cigarette/Vaping Use: Never Used Second Hand Smoke Exposure: Yes (employees smoked atwork) service: No Current occupational status: disabled Cognitive needs: No Hearing needs: No Vision needs: No Review of Systems Narrative Review of Systems - Constitutional: Reports body aches and general fatigue. - Denies fevers and chills. - Respiratory: Reports cough, chest congestion, chest tightness, and pain on deep inspiration. - Denies wheezing. - HEENT: Denies ear pain and sinus pain. - Gastrointestinal: Denies nausea, vomiting, and diarrhea. All systems reviewed and are unremarkable except as noted in HPI Physical Exam Exam Exam: Physical Exam General: Cooperative, healthy appearing, comfortable and no acute distress Orientation/consciousness: Patient oriented x3 Limitations: No limitations Head: Normal to inspection Ears: Hearing grossly normal bilaterally, external ears normal, EAC's normal bilaterally and TM's normal bilaterally Nose: Normal external nose present, Normal nares present and No nasal discharge present Face and sinus: Normal facial exam and sinuses nontender Mouth: Normal oral and palatal mucosa present and moist mucous membranes Throat: tonsils normal, no exudates, uvula midline, posterior oropharynx erythema Eyes: Appearance normal, both eyes and all related structures Neck: Normal visual inspection, full ROM Respiratory: Clear to auscultation bilaterally. Normal respiratory effort, able to speak in complete sentences, not actively coughing, no respiratory distress, not tachypneic, no tripod positioning and no use of accessory muscles Cardiovascular: Regular rate and rhythm. Normal S1 and S2 Skin: No rashes or lesions noted Neuro: Patient oriented x3 Extremities: Normal to inspection and Yes no clubbing, cyanosis or edema Vital Signs: Last Vital Signs Temp 98.3 F 03/18/25 13:10 Pulse 78 03/18/25 13:10 BP 132/80 03/18/25 13:10 Pulse Ox 97 03/18/25 13:10 Oxygen Delivery Method Room Air 03/18/25 13:10 BMI result Body Mass Index 34.1 Assessment & Plan Assessment & Plan (1) Acute viral syndrome: Code(s): B34.9 - Viral infection, unspecified Plan: Patient was informed and verbally consented to the use of an ambient scribe for clinic note documentation during this visit. - VSS, pt well appearing and PE unremarkable. - A test for flu, COVID, and RSV has been conducted. - If the test is positive for influenza, a prescription for Tamiflu will be sent. - If the test is positive for COVID-19, a prescription for Paxlovid will be sent. - The patient was advised he can discontinue antiviral medication if side effects become worse than the illness itself. - Recommended an bicx-ocp-adgszoo decongestant, specifically Coricidin, due to his history of hypertension. - Also recommended an ptqe-zvm-gyvrlox antihistamine to help dry secretions. - A saline nasal spray sample was provided to address nasal dryness. - No indication for CXR today. If his breathing worsens, he feels acutely worse or develops a fever that does not improve with Tylenol, he should return to the clinic or go to the ED. - Due to shortness of breath and incomplete relief from his Ventolin inhaler, a 5-day course of prednisone 40 mg daily was prescribed. - The prednisone is intended to help him breathe easier and reduce pressure and tightness. - The prescription was sent to [facility] in [place]. - Advised to start the prednisone in the morning to avoid insomnia. Orders: Orders SARS-CoV2/FLU/RSV Today R09.89 - Other specified symptoms and signs involving the circulatory and respiratory systems Medications: New prednisone 40 mg (2 x 20 mg) PO QAM 10 tabs 0RF Coding Level of Care Code Est Pt Level 3 (58865) Diagnoses Acute viral syndrome B34.9
--- OUTSIDE RECORDS SUMMARY | 2025-03-18 16:50 | XMS_ITS | Data Portability ---
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 Name Role Phone [facility] Referring Provider Assessment Encounter Date [...] Not Available Not Available Not Available [employer] [place] Lite kit active Not Available Not Available [...] Esa Ohara MD Main - instED [address] [place] [address] 11/15/2021 12:48:47 11/25/2021 13:00:36 Dyspnea [id number] R06.00 Health Concerns Section Related Observation LastModified by Organization Detai ls LastModified Time None Recorded Concern Status LastModified by Organization Details LastModified Time None Recorded Advance Directives Directive None Recorded Payers Insurance Date Sequence Insurance Name Policy Number Policy Reyna Covered Member ID Reyna Member ID Guarantor Name 11/15/2021 1 [facility] - DOS PRIOR TO 2022 - DUAL ELIGIBLE (MEDICARE REPLACEMENT/ADV ANTAGE - HMO) Keaton Cullen [id number] Keaton Cullen Notes Date Note Type Note [...] ..................... ..................... ..................... ..................... ..................... ..................... ............... 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 Pt admits that laying flat and exerting himself causes SOB. Pt states he uses his nebulizer but it doesn t help much. No noted edema. 12 lead showed RBBB. Pt doesn t think he had that before. [facility] advised that Pt needs to follow up with PCP for echo/chest X-ray but if the tightness or sob got worse he needed to go to ED. Red flags discussed ..................... ..................... ..................... ..................... ..................... ..................... ............... Disposition: Fulfilled Esa Ohara MD [address] [place] [address],[address], [place], [address], KINGA STEELE 11/15/2021 19:11:47
--- OUTSIDE RECORDS SUMMARY | 2025-03-18 16:50 | XMS_ITS | Clinical Summary ---
Author Organization [address] [facility] Address [address] [place] [address] Phone Care Team Providers Care Head Correction Officer Name Role Phone Oliverio Emerson MD [...] Group ID:[id number] Type:Not on file Address: [address] [place] [address] Care Teams Head Correction Officer Relationship Specialty Start Date End Date Oliverio Emerson MD [address] [place] [address] [address] [place] PCP - General 02/21/22
--- OUTSIDE RECORDS SUMMARY | 2025-03-18 16:50 | XMS_ITS | Clinical Summary ---
Author Organization [facility] Address [address] [place] [address] [place] [address] Phone Care Team Providers Care Steel Box Toe Inserter Name Role Phone Oliverio Emerson MD Primary Care Provider [phone] Allergies Active Allergy Reactions Criticality Noted Date [...] Insurance MEDICARE PART A & B [facility] ONE CARE MEDICARE REPLACEMENT [place] [id number] MEDICARE PART A & B Member Subscriber Plan / Payer (Ef fective 1992-Present) Name:Keaton Cullen Member ID:[id number] Relation to Subscriber:Self Name:Keaton Cullen Subscriber ID:[id number] Payer ID:[id number] Group ID:Not on file Type:Medicare Address: [employer] [address] ONE CARE MEDICARE REPLACEMENT MEDICARE PART A & B CARE MEDICARE REPLACEMENT MEDICARE PART A & B ONE CARE MEDICARE REPLACEMENT Member Subscriber Plan / Payer ( fective 2018-Present) Name:Keaton Cullen Relation to Subscriber:Self Name:Keaton Cullen Payer ID:[id number] (NAIC) Group ID:[id number] Type:Medicare [address] [facility] MEDICARE PART A & B [facility] CARE MEDICARE REPLACEMENT MEDICARE PART A & B ONE CARE MEDICARE REPLACEMENT [place] [address] MEDICARE PART A & B [id number] [place] [address] ONE CARE MEDICARE REPLACEMENT MEDICARE PART A & B CARE MEDICARE REPLACEMENT [place] [facility] MEDICARE PART A & B CARE MEDICARE REPLACEMENT Care Teams Steel Box Toe Inserter Relationship Specialty Start Date End Date Oliverio Emerson MD [address] [place] [address] [place] [address] PCP - General Internal Medicine 11/15/21 Additional Source Comments The information contained in this document represents components of the legal health record. It is not the complete legal health record.[facility]
== END 2025-03-18 13:50 | disposition home or self-care (01) ==
PROVIDERS: PCP Internal Medicine; Visit Provider Physician Assistant
DX: B34.9 Viral infection, unspecified (principal)

== ENCOUNTER 2025-03-18 12:59 | Outpatient (REF) | payer OTHER, SELFPAY ==
[2025-03-18 18:08] LABS: Resp Syncy Virus RNA Qual PCR NEGATIVE (Negative); SARS COV2 PCR INHOUSE NEGATIVE (Negative)
== END 2025-03-18 13:00 | disposition home or self-care (01) ==
LOC: HO.LAB 12:59
PROVIDERS: Physician Assistant; PCP Internal Medicine
DX: Z03.818 Encounter for observation for suspected exposure to other biological agents ruled out (principal)
CPT/HCPCS: 87637; 99212